=== PATIENT | female | born 1995 | race Caucasian/White ===

== ENCOUNTER 2022-09-23 01:59 | Emergency (ER) | payer MEDICAID, SELFPAY ==
[2022-09-23 02:19] VITALS: BP 164/92; PULSE 97; O2SAT 98; BMI 41.5
[2022-09-23 02:30] VITALS: BP 111/67; PULSE 79; RESP 16; TEMP 37.1; O2SAT 95
--- OUTSIDE RECORDS SUMMARY | 2022-09-23 03:39 | XMS_ITS | Continuity of Care Document ---
:1995 Author Organization [facility] pt Address [address] [place] [address]- Care Team Providers Name Role Phone Not on Staff, PCP Primary Care Physician Unavailable [place] [facility] [place] 10[place]19 [facility] [address] [address]- [facility] Encounter Diagnosis Asthma exacerbation (Discharge Diagnosis) - 10/13/19 Sore throat (Discharge Diagnosis) - 10/13/19 Attending Physician: Not on Staff, Attending MD Referring Physician: Not on Staff, Referring MD Allergies, Adverse Reactions, Alerts Substance Reaction Severity Status Other Environmental Allergy Acti ve Medications albuterol 90 mcg/inh inhalation powder 2 puffs, Inhalation, Every 4 hours, PRN as needed, # 1 each, 0 Refills, Maintenance, 10/13/19 12:55:00 EST, Powder, [id number], 2 puffs Inhalation Every 4 hours,PRN:as needed Start Date: 10/13/19 Status: Orderedazithromycin 250 mg oral tablet See Instructions, 2 tablets on day 1 and then 1 tablet By Mouth Daily for 4 days, # 6 tablet, 0 Refills, Acute 10/23/19 12:56:00 EST, 10/13/19 12:55:00 EST, Tablet, [id number] Start Date: 10/13/19 Stop Date: 10/23/19 Status: OrderedCavilon Emollient topical cream 1 application, Topically, 2 times a day, PRN for dry skin, to affected area, apply first to entire hands, prior to applying triamcinolone, # 120 Gm, 0 Refills, Maintenance, 10/12/19 17:43:00 EST, Cream, [id number], 1 application Topically 2 ti... Start Date: 10/12/19 Status: Orderedtriamcinolone 0.1% topical cream 1 application, Topically, 2 times a day, for 14 days, apply a thin film to raised red areas with broken skin after applying thick cream, # 30 Gm, 0 Refills, Acute 10/26/19 17:43:00 EST, 10/12/19 17:43:00 EST, Cream, [id number], 1 application T... Start Date: 10/12/19 Stop Date: 10/26/19 Status: Ordered Problem List Diagnosis Diagnosis Type Effective Dates Health Clinical Infor [facility] Status Service Asthma exacerbation Discharge 10/13/19 Diagnosis Sore throat Discharge 10/13/19 Diagnosis Vital Signs Most recent to oldest [Reference Range]: 1 Oxygen Saturation [94-100 %] 100 % (10/13/19 12:32 PM) Pulse Rate [55-90 bpm] 72 bpm (10/13/19 12:32 PM) Blood Pressure [90-138/55-84 mm Hg] 135/78 mm Hg (10/13/19 12:32 PM) Respiratory Rate [16-30 br/min] 18 br/min (10/13/19 12:32 PM) Temperature [96.8-100.4 DegF] 97.8 DegF (10/13/19 12:32 PM) Mode of Delivery (Oxygen) Room air (10/13/19 12:32 PM) Blood pressure sites Arm, right (10/13/19 12:32 PM) Temperature Route Oral (10/13/19 12:32 PM)
--- OUTSIDE RECORDS SUMMARY | 2022-09-23 03:39 | XMS_ITS | Continuity of Care Document ---
:1995 Author Organization [facility] Address [address] [place] [address]- Care Team Providers Name Role Phone Not on Staff, PCP Primary Care Physician Unavailable Encounter [facility] [place] Date(s): 07/01/22 - 07/02/[address] [address]- Discharge Disposition: A-D/C Walkout Attending Physician: Not on Staff, Attending MD Admitting Physician: Not on Staff, Admitting MD Referring Physician: Not on Staff, Referring MD Allergies, Adverse Reactions, Alerts Substance Reaction Severity Status clotrimazole topical Active Other Environmental Allergy Acti ve Medications albuterol 90 mcg/inh inhalation powder 2 puffs, Inhalation, Every 4 hours, PRN as needed, # 1 each, 0 Refills, Maintenance, 10/13/19 12:55:00 EST, Powder, [id number], 2 puffs Inhalation Every 4 hours,PRN:as needed Start Date: 10/13/19 Status: OrderedCavilon Emollient topical cream 1 application, Topically, 2 times a day, PRN for dry skin, to affected area, apply first to entire hands, prior to applying triamcinolone, # 120 Gm, 0 Refills, Maintenance, 10/12/19 17:43:00 EST, Cream, [id number], 1 application Topically 2 ti... Start Date: 10/12/19 Status: OrderedcloNIDine 0.1 mg oral tablet Refills 0, Maintenance, 08/19/20 14:34:00 EDT Start Date: 08/19/20 Status: OrderedOmeprazole By Mouth, Daily, 0 Refills, Maintenance, 08/19/20 14:33:00 EDT Start Date: 08/19/20 Status: OrderedZiprasidone 0 Refills, Maintenance, 08/19/20 14:31:00 EDT Start Date: 08/19/20 Status: Ordered Problem List Condition Effective Dates Status Health Status Informant Severe obesity(Confirmed) Active Vital Signs Most recent to oldest 1 2 3 [Reference Range]: Height 157 cm 157 cm 157 cm (07/02/22 7:09 PM) (07/02/22 3:53 PM) (07/02/22 3:0 8 PM) Weight 102 kg 102 kg 102 kg (07/02/22 7:09 PM) (07/02/22 3:53 PM) (07/02/22 3:0 8 PM) Oxygen Saturation [94-100 %] 98 % 100 % 100 % (07/02/22 7:09 PM) (07/02/22 3:53 PM) (07/02/22 3:0 8 PM) Pulse Rate [55-90 bpm] 93 bpm 81 bpm 82 bpm *H* (07/02/22 3:53 PM) (07/02/22 3:08 PM) (07/02/22 7:09 PM) Body Mass Index [18.5-24.99] 41.38 41.38 41. 38 *>HHI* *>HHI* *>HHI* (07/02/22 7:09 PM) (07/02/22 3:53 PM) (07/02/22 3:0 8 PM) Blood Pressure [90-138/55-84 154/95 mm Hg 122/96 mm Hg 148 /89 mm Hg mm Hg] *H* (07/02/22 3:53 PM) *H* (07/02/22 7:09 PM) (07/02/22 3:08 PM) Respiratory Rate [16-30 17 br/min 16 br/min 16 br/mi n br/min] (07/02/22 7:09 PM) (07/02/22 3:53 PM) (07/02/22 3:0 8 PM) Temperature [96.8-100.4 DegF] 98.2 DegF 98.1 DegF 97 .5 DegF (07/02/22 3:53 PM) (07/02/22 3:08 PM) (07/02/22 10: 52 AM) Mode of Delivery (Oxygen) Room air Room air Room a ir (07/02/22 7:09 PM) (07/02/22 3:53 PM) (07/02/22 3:0 8 PM) Blood pressure sites Arm, left Arm, right Arm, left (07/02/22 7:09 PM) (07/02/22 3:53 PM) (07/02/22 10: 52 AM) Temperature Route Oral Oral Oral (07/02/22 3:53 PM) (07/02/22 3:08 PM) (07/02/22 10: 52 AM) Weight Obtained Via Standing scale (07/01/22 12:51 PM) Care Team PersonnelName: Not on Staff, PCP
--- OUTSIDE RECORDS SUMMARY | 2022-09-23 03:39 | XMS_ITS | Continuity of Care Document ---
:1995 Author Organization [facility] pton Address [address] [place] [address]- Care Team Providers Name Role Phone Not on Staff, PCP Primary Care Physician Unavailable En[place] [facility] [place] Date(s): 10/12/19 - 10/19/19 [facility] [address] [address]- [facility] Attending Physician: Christa Cantor MD Referring Physician: Not on Staff, Referring [...] 10/26/19 17:43:00 EST, 10/12/19 17:43:00 EST, Cream, [id number], 1 application T... Start Date: 10/12/19 Stop Date: 10/26/19 Status: Ordered Vital Signs Most recent to oldest [Reference Range]: 1 Oxygen Saturation [94-100 %] 98 % (10/12/19 5:18 PM) Pulse Rate [55-90 bpm] 63 bpm (10/12/19 5:18 PM) Blood Pressure [90-138/55-84 mm Hg] 108/54 mm Hg (10/12/19 5:18 PM) Respiratory Rate [16-30 br/min] 16 br/min (10/12/19 5:18 PM) Temperature [96.8-100.4 DegF] 97.9 DegF (10/12/19 5:18 PM) Mode of Delivery (Oxygen) Room air (10/12/19 5:18 PM) Blood pressure sites Arm, left (10/12/19 5:18 PM) Temperature Route Oral (10/12/19 5:18 PM)
--- OUTSIDE RECORDS SUMMARY | 2022-09-23 03:39 | XMS_ITS | Continuity of Care Document ---
:[address] [facility] pt Address [address] [place] [address]- Care Team Providers Name Role Phone Not on Staff, PCP Primary Care Physician Unavailable [place] [facility] [place] 08/20[place]20 [place] 08/27/20 [facility] [address] [address]- Encounter Diagnosis Minor head trauma (Discharge Diagnosis) - 08/20/20 Attending Physician: Kelvin Del Toro Referring Physician: Not on Staff, Referring MD [...] Topically 2 ti... Start Date: 10/12/19 Status: Orderedciclopirox 0.77% topical cream 1 application, Topically, 2 times a day, for 7 days, # 90 Gm, 0 Refills, Acute 08/29/20 15:12:00 EST, 08/22/20 15:12:00 EST, Cream, [id number], 1 application Topically 2 times a day,x7 days Start Date: 08/22/20 Stop Date: 08/29/20 Status: OrderedcloNIDine 0.1 mg oral tablet Refills 0, Maintenance, 08/19/20 14:34:00 EDT Start Date: 08/19/20 Status: OrderedOmeprazole By Mouth, Daily, 0 Refills, Maintenance, 08/19/20 14:33:00 EDT Start Date: 08/19/20 Status: Orderedterbinafine 1% topical cream 1 application, Topically, 2 times a day, for 14 days, # 30 Gm, 0 Refills, Acute 09/02/20 16:11:00 EST, 08/19/20 16:11:00 EDT, Cream, [id number], 1 application Topically 2 times a day,x14 days Start Date: 08/19/20 Stop Date: 09/02/20 Status: OrderedZiprasidone 0 Refills, Maintenance, 08/19/20 14:31:00 EDT Start Date: 08/19/20 Status: Ordered Problem List Diagnosis Diagnosis Type Effective Dates Health Status Clinical In formant Service Minor head Discharge 08/20/20 trauma Diagnosis Vital Signs Most recent to oldest [Reference Range]: 1 Oxygen Saturation [94-100 %] 98 % (08/20/20 1:26 PM) Pulse Rate [55-90 bpm] 81 bpm (08/20/20 1:26 PM) Blood Pressure [90-138/55-84 mm Hg] 143/80 mm Hg *H* (08/20/20 1:26 PM) Respiratory Rate [16-30 br/min] 16 br/min (08/20/20 1:26 PM) Temperature [96.8-100.4 DegF] 98.2 DegF (08/20/20 1: PM) Mode of Delivery (Oxygen) Room air (08/20/20 1:26 PM) Blood pressure sites Arm, left (08/20/20 1:26 PM) Temperature Route Temporal (08/20/20 1: PM)
--- OUTSIDE RECORDS SUMMARY | 2022-09-23 03:39 | XMS_ITS | Continuity of Care Document ---
:[address] [facility] pton Address [address] [place] [address]- Care Team Providers Name Role Phone Not on Staff, PCP Primary Care Physician Unavailable Encounter [facility] Date(s): 10/13/19 - 10/23/19 [facility] [address] [address]- [facility] Attending Physician: Robert Andre Admitting Physician: Admtr, Robert Referring Physician: Admtr, Ar8 Allergies, Adverse Reactions, Alerts Substance Reaction Severity [...]
--- OUTSIDE RECORDS SUMMARY | 2022-09-23 03:40 | XMS_ITS | Continuity of Care Document ---
:1995 Author Organization [facility] Address [address] [place] [address]- Care Team Providers Name Role Phone Not on Staff, PCP Primary Care Physician Unavailable [place] [facility] [place]): [place] [facility] [address] [address]- Encounter Diagnosis Tinea corporis (Discharge Diagnosis) - 08/19/20 Attending Physician: Carri Caballero NP Referring Physician: Not on Staff, Referring MD [...] 09/02/20 16:11:00 EST, 08/19/20 16:11:00 EDT, Cream, [id number], 1 application Topically 2 times a day,x14 days Start Date: 08/19/20 Stop Date: 09/02/20 Status: OrderedZiprasidone 0 Refills, Maintenance, 08/19/20 14:31:00 EDT Start Date: 08/19/20 Status: Ordered Problem List Diagnosis Diagnosis Type Effective Dates Health Status Clinical In formant Service Tinea corporis Discharge 08/19/20 Diagnosis Vital Signs Most recent to oldest [Reference Range]: 1 Oxygen Saturation [94-100 %] 97 % (08/19/20 2:29 PM) Pulse Rate [55-90 bpm] 78 bpm (08/19/20 2:29 PM) Blood Pressure [90-138/55-84 mm Hg] 122/67 mm Hg (08/19/20 2:29 PM) Respiratory Rate [16-30 br/min] 20 br/min (08/19/20 2:29 PM) Blood pressure sites Arm, right (08/19/20 2:29 PM)
--- NOTE | 2022-09-23 03:41 | ED.EYEPROB ---
HPI - Eye Problem General Chief complaint: Eye Problems Stated complaint: eye irriatation with eye cloudiness Time Seen by Provider: 09/23/22 03:21 Source: patient Mode of arrival: EMS Limitations: no limitations History of Present Illness HPI Narrative: 27-year-old female who presents emergency department for evaluation of sensations in both of her eyes that began at 14:00 hours yesterday. Patient states that ?I felt like my eyes were getting cloudy but there was no change in my vision and ?.. She states she felt as if there were ?cells dividing on the surface of my eyes ?. She states that the surface of her eyes feel dry. She states that she does wear glasses and she is having no difficulty seeing. She denies pain in her eyes. She denied being ill in any other way, she denied fever, chills, rhinorrhea, sore throat or cough. She has not had any eye injury. Related Data Allergies Allergy/AdvReac Type Severity Reaction Status Date / Time clotrimazole Allergy Severe Rash Verified 09/23/22 02:18 Review of Systems Review of Systems: Yes all other systems are reviewed and are negative [facility] Past Medical History [facility] Narrative: Past medical history: Pre diabetes, reactive airways disease, GERD, possible seizure disorder, PCOS. Social history: She denies tobacco use. She states she rarely drinks alcohol. She states that she occasionally smokes marijuana but has not smoked any marijuana recently. Social History Social History Advance Directives: No Advance Directives Information Provided: No Physical Exam Vital Signs: Vital Signs: Last Vital Signs Temp 98.7 F 09/23/22 02:30 Pulse 79 09/23/22 02:30 Resp 16 09/23/22 02:30 BP 111/67 09/23/22 02:30 Pulse Ox 95 09/23/22 02:30 O2 Del Method 09/23/22 02:30 BMI result Body Mass Index 41.5 Const: Other: Awake, alert, female patient, she does appear to be anxious, she is cooperative and does not appear to be in distress HEENT: Other: Head is normal cephalic and atraumatic, external ears appear to be normal, mouth revealed moist membranes with no erythema or exudates, nares revealed no nasal discharge. Eyes: Other: The upper and lower lids appear to be normal, there is no periorbital swelling or erythema, patient's pupils are 6 mm and reactive to light, extraocular muscles are intact. Fluorescein dye exam with magnified Wood's lamp exam revealed no corneal abrasions Neck: Other: Neck is supple with no adenopathy Course Course Course Narrative: 27-year-old female who presents emergency department for evaluation bilateral eye complain of feeling as if her eyes were getting cloudy but there was no change in vision and feeling as if there are cells growing on her eyes. The patient's eye exam was normal. Fluorescein dye and magnified Wood's lamp exam revealed no corneal abrasions. Patient's visual acuity with glasses was 20/25 bilaterally. Without glasses her visual acuity was 20/50 bilaterally. At this time I do not have a clear etiology for the patient's eye sensations. Possible that her cornea are dry secondary to being indoors in he did areas that have no humidity. I did discuss this with the patient. She was advised to buy normal saline/natural tear eyedrops and apply 2 drops to each eye every 2 hours for the next 1-2 days see if this improves her symptoms. 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 Medications Administered Discontinued Medications Generic Name Dose Route Start Last Admin Trade Name Freq PRN Reason Stop Dose Admin Fluorescein Sodium 1 strip 09/23/22 03:21 09/23/22 03:56 Fluorescein Sodium Strip EYE-BOTH 09/23/22 03:22 1 strip ONCE ONE Administration Discharge Plan Discharge Clinical Impression: Irritation of both eyes Patient Disposition: Home, Self-Care Additional Instructions: Your eye examination today was normal. Your visual acuity in both eyes with glasses was 20/25 which is very good. The fluorescein dye examination with the Wood's lamp did not reveal any abnormalities of your cornea or abrasions to your cornea. Sometimes during the winter months, when the heat is on an our homes, the air becomes very dry with no moisture in the air and this causes your eyes to become dry and irritated. You can purchase saline eye drops/natural tears at your local pharmacy. Use 1 or 2 drops in each eye every 1-2 hours for the next several days to see if this improves your symptoms. Follow-up with your toll bridge operator for re-evaluation within 1 week. Please return to the emergency department if your symptoms get worse or if you develop any symptoms that are concerning to you.
[2022-09-23] MEDS: Fluorescein Sodium STRIP 1 STRIP EYE-BOTH (03:56)
--- NOTE | 2022-09-23 06:22 | PC.NURSE ---
Pt. quietly resting in bed. MD examined pt. eyes, visual acuity test given. Pt results at 25/20 with glasses. Cornea appeared intact. MD explained results to pt. Pt. told this RN that she believes she has a virus that has formed a clear coat over her eye and that when the MD viewed the cornea, it was a false cornea placed by the virus . Pt requested a 2nd opinion from an emergency opthamologist. Pt was provided with names of opthamologists in [place] where she resides. Pt. then dc'd where she was going to wait for a ride.
== END 2022-09-23 06:27 | disposition home or self-care (01) ==
PROVIDERS: Emergency Provider Emergency Medicine Emergency Medical Services
DX: H57.13 Ocular pain, bilateral (principal)
CPT/HCPCS: 99283; 99284

== ENCOUNTER 2023-02-16 14:24 | Inpatient (IN) | payer MEDICAID, OTHER, SELFPAY ==
[2023-02-16 14:37] VITALS: BP 149/73; BP 158/81; PULSE 79; PULSE 91; RESP 16; TEMP 36.9; O2SAT 97; O2SAT 98; BMI 43.4
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
[2023-02-16 14:47] VITALS: BP 155/92; PULSE 88; RESP 18; TEMP 36.6; O2SAT 98
[2023-02-16 15:25] LABS: MANUAL DIFF FLAG NO
[2023-02-16 15:26] LABS: Basophils Percent Auto 0.3 % (0-2); Eosinophils Percent Auto 0.1 % (0-4); Hematocrit 39.1 % (37.0-47.0); Hemoglobin 13.1 g/dl (12.0-16.0); Imm Gran Abs Auto 0.04 X10*3/uL (0.00-0.03); Imm Gran Pct Auto 0.4 % (0.0-0.4); Lymphocytes Absolute Auto 1.7 X10*3/uL (1.2-4.9); Lymphocytes Percent Auto 15.5 % (20-40); Mean Corpuscular HGB Conc 33.5 g/dl (31.0-35.0); Mean Corpuscular Hemoglobin 28.1 pg (27.0-33.0); Mean Corpuscular Volume 83.7 fL (80.0-98.0); Mean Platelet Volume 10.3 fL (9.4-12.3); Monocytes Absolute Auto 0.8 X10*3/uL (0.1-1.2); Monocytes Percent Auto 7.8 % (2-11); Neutrophils Absolute Auto 8.2 x10*3/uL (2.0-8.3); Neutrophils Percent Auto 75.9 % (45-73); Platelet Count 336 X10*3/uL (160-400); Red Blood Count 4.67 X10*6/uL (4.20-5.50); Red Cell Distribution Width 13.2 % (11.0-16.0); White Blood Count 10.8 X10*3/uL (4.8-10.8)
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
[2023-02-16 15:51] LABS: Alanine Aminotransferase 92 U/L (0-31); Albumin Level 4.4 g/dL (3.5-5.0); Alkaline Phosphatase 36 U/L (39-117); Anion Gap 17 (12-20); Aspartate Amino Transferase 55 U/L (5-31); Bilirubin Total 0.9 mg/dL (0.0-1.0); Blood Urea Nitrogen 7 mg/dL (9-16); Calcium 9.1 mg/dL (8.4-10.2); Carbon Dioxide 22 mmol/L (22-29); Chloride 102 mmol/L (96-108); Creatinine Clr Calc Pharmacy 120.9; Estimated Glomerular Filt Rate > 60; Glucose Random 118 mg/dL (60-115); HCG Quantitative < 2 mIU/mL; Magnesium 2.1 mg/dL (1.6-2.6); Potassium 3.8 mmol/L (3.3-5.1); Sodium 137 mmol/L (135-145); Total Protein 7.6 g/dL (6.5-8.0)
[2023-02-16 16:38] LABS: Appearance Urine Hazy; Color Urine RED; Glucose Urine UA Negative (Negative); Leukocyte Esterase Urine Moderate (2+) (Negative); Nitrite Urine Negative (Negative); UMIC TRIGGER UACC YES; Urine Blood Large (3+) (Negative); Urine Ketones >=80 mg/dL (Negative); Urine Protein 30 (1+) mg/dL (Neg-Trace)
[2023-02-16 16:41] LABS: Bacteria Urine None Seen (None Seen); Hyaline Casts Urine 0-2 /LPF (0-2); RBC Urine >20 /HPF (0-2); UACC Culture Trigger YES; WBC Urine 21-50 /HPF (0-5)
[2023-02-16 16:49] LABS: Amphetamine Screen Urine Not Detected (Not Detect); Barbiturates, Urine Not Detected (Not Detect); Benzodiazepines Screen Urine Not Detected (Not Detect); Cannabinoid Screen Urine Not Detected (Not Detect); Cocaine Screen Urine Not Detected (Not Detect); Fentanyl, urine Not Detected (Not Detect); Opiate Screen Urine Not Detected (Not Detect); Phencyclidine Screen Urine Not Detected (Not Detect)
[2023-02-16 17:40] LABS: Ethanol < 10 mg/dL
[2023-02-16 17:43] LABS: COVID-19 Test Negative (Negative); IDNOW Serial# BCCEAD1C
[2023-02-16 21:38] VITALS: BP 136/68; PULSE 80; RESP 17; TEMP 36.6; O2SAT 97
[2023-02-16] MEDS: Ziprasidone 60 MG CAPSULE PO (21:56)
[2023-02-16] MEDS: traZODone HCL 50 MG TABLET PO (22:00)
[2023-02-16] MEDS: metFORMIN HCl 1,000 MG TABLET 1000 MG PO (22:00)
--- NOTE | 2023-02-17 03:38 | PC.NURSE ---
Patient is currently in bed appears sleeping, no distress observed/reported, behavior disorganized, delayed responses, unable to self care, help provided for shower, patient is on her monthly period, medication compliant, disposition per care team is section 12 inpatient bed search, VSS, will continue to monitor.
--- NOTE | 2023-02-17 06:02 | PC.NURSE ---
Patient slept through the night without issues and concerns. Will continue to monitor.
[2023-02-17] MEDS: metFORMIN HCl 1,000 MG TABLET 1000 MG PO ×2 (10:03→21:00)
[2023-02-17] MEDS: lisinopriL 2.5 MG TABLET PO (10:03)
[2023-02-17] MEDS: Ziprasidone 40 MG CAPSULE PO (10:03)
[2023-02-17 10:40] VITALS: BP 137/88; PULSE 112; RESP 18; TEMP 36.2
[2023-02-17 16:05] VITALS: BP 109/89; PULSE 100; RESP 18; TEMP 36.3; O2SAT 97
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
[2023-02-17] MEDS: Ziprasidone 60 MG CAPSULE PO (18:29)
--- NOTE | 2023-02-18 | ECG_ITS ---
Test Reason : check qt interval Blood Pressure : / mmHG Vent. Rate : 066 BPM Atrial Rate : 066 BPM P-R Int : 136 ms QRS Dur : 076 ms QT Int : 414 ms P-R-T Axes : 026 031 030 degrees QTc Int : 434 ms Normal sinus rhythm Nonspecific ST and T wave abnormality Abnormal ECG No previous ECGs available Referred By: Abdulaziz Mcbride Electronically Signed By:JAX SOLIS MD
[2023-02-18] MEDS: traZODone HCL 50 MG TABLET PO (01:59)
[2023-02-18 02:04] VITALS: BP 147/78; PULSE 90; RESP 17; TEMP 36.4; O2SAT 96
--- NOTE | 2023-02-18 04:18 | PC.NURSE ---
Pt sleeping at the bedside. Breaths are even, regular, and unlabored with equal chest rises. No apparent distress noted. Will continue to monitor.
--- NOTE | 2023-02-18 09:49 | PC.NURSE ---
patient continues to sleep. respirations are equal and unlabored. video monitoring in place. will CTM
[2023-02-18 10:15] VITALS: BP 139/87; PULSE 92; RESP 12; TEMP 36.6; O2SAT 96
[2023-02-18] MEDS: lisinopriL 2.5 MG TABLET PO (10:18)
[2023-02-18] MEDS: metFORMIN HCl 1,000 MG TABLET 1000 MG PO ×2 (10:19→21:27)
[2023-02-18 18:00] VITALS: BP 142/85; PULSE 87; RESP 16; TEMP 36.3; O2SAT 97
[2023-02-18] MEDS: Ziprasidone 60 MG CAPSULE PO (18:06)
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
[2023-02-18 21:30] VITALS: BP 143/79; PULSE 100; TEMP 36.6; O2SAT 96
--- NOTE | 2023-02-19 01:03 | PC.NURSE ---
menses-currently has menses and is reflective in UA. denies any discomfort. culture contaminated. reports being off of BCP ''x5 days''
[2023-02-19] MEDS: traZODone HCL 50 MG TABLET PO (02:59)
[2023-02-19] MEDS: Magnesium Hydrox/Alum Hydrox 30 ML ORAL.SUSP PO (06:58)
[2023-02-19 08:00] VITALS: BP 137/80; PULSE 89; RESP 18; TEMP 36.6; O2SAT 98
[2023-02-19 08:03] LABS: Alanine Aminotransferase 83 U/L (0-31); Albumin Level 4.1 g/dL (3.5-5.0); Alkaline Phosphatase 56 U/L (39-117); Anion Gap 18 (12-20); Aspartate Amino Transferase 44 U/L (5-31); Bilirubin Total 0.3 mg/dL (0.0-1.0); Blood Urea Nitrogen 12 mg/dL (9-16); Calcium 10.2 mg/dL (8.4-10.2); Carbon Dioxide 20 mmol/L (22-29); Chloride 104 mmol/L (96-108); Cholesterol 175 mg/dL; Creatinine Clr Calc Pharmacy 110.8; Estimated Glomerular Filt Rate > 60; Glucose Fasting 157 mg/dL (60-99); HDL Cholesterol 33 mg/dL; LDL Cholesterol Calculated 111 mg/dl; Sodium 138 mmol/L (135-145); Total Protein 6.9 g/dL (6.5-8.0); Triglycerides 157 mg/dL
[2023-02-19 08:19] LABS: Estimated Average Glucose 126 mg/dL
[2023-02-19 08:30] LABS: Folate 10.2 ng/mL (> or = 4.0); Free T4 (Free Thyroxine) 1.13 ng/dL (0.71-1.85); Thyroid Stimulating Hormone 2.25 uIU/mL (0.32-4.0); Vitamin B12 354 pg/mL (200-900)
[2023-02-19] MEDS: lisinopriL 2.5 MG TABLET PO (09:31)
[2023-02-19] MEDS: metFORMIN HCl 1,000 MG TABLET 1000 MG PO ×2 (09:31→19:49)
[2023-02-19] MEDS: Ziprasidone 40 MG CAPSULE PO (09:32)
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
[2023-02-19 18:00] VITALS: BP 135/69; PULSE 100; RESP 16; TEMP 36.6; O2SAT 99
[2023-02-19] MEDS: Ziprasidone 60 MG CAPSULE PO (18:03)
[2023-02-20 06:00] VITALS: BP 142/82; PULSE 91; RESP 18; TEMP 36.6; O2SAT 96
[2023-02-20] MEDS: Ziprasidone 40 MG CAPSULE PO (08:59)
[2023-02-20] MEDS: lisinopriL 2.5 MG TABLET PO (08:59)
[2023-02-20] MEDS: metFORMIN HCl 1,000 MG TABLET 1000 MG PO ×2 (08:59→18:11)
[2023-02-20] MEDS: Acetaminophen 325 MG TABLET 650 MG PO (12:48)
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
[2023-02-20 16:31] VITALS: BP 151/70; PULSE 96; RESP 18; TEMP 36.4; O2SAT 97
[2023-02-20] MEDS: Ziprasidone 60 MG CAPSULE PO (18:11)
[2023-02-20 20:05] VITALS: BP 144/85; PULSE 90; RESP 16; TEMP 36.3; O2SAT 96
[2023-02-21] MEDS: traZODone HCL 50 MG TABLET PO (00:10)
[2023-02-21 07:00] VITALS: BMI 42.4
[2023-02-21 08:59] LABS: Glucose, Whole Blood 112 mg/dL (60-115)
[2023-02-21 09:45] VITALS: BP 134/90; PULSE 69; RESP 18; TEMP 36.3; O2SAT 97
[2023-02-21] MEDS: Ziprasidone 40 MG CAPSULE PO (09:56)
[2023-02-21] MEDS: metFORMIN HCl 1,000 MG TABLET 1000 MG PO ×2 (09:56→18:04)
[2023-02-21] MEDS: lisinopriL 2.5 MG TABLET PO (09:56)
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
[2023-02-21 15:40] VITALS: BP 144/91; PULSE 104; RESP 18; O2SAT 97
[2023-02-21] MEDS: cloNIDine HCL 0.1 MG TABLET PO (15:51)
[2023-02-21] MEDS: Ziprasidone 60 MG CAPSULE PO (18:04)
[2023-02-22 01:58] VITALS: BP 137/79; PULSE 100; RESP 18
[2023-02-22] MEDS: cloNIDine HCL 0.1 MG TABLET PO (02:05)
[2023-02-22 06:00] VITALS: BP 132/76; PULSE 90; RESP 18; TEMP 36.7; O2SAT 97
[2023-02-22 08:27] LABS: Glucose, Whole Blood 114 mg/dL (60-115)
[2023-02-22] MEDS: metFORMIN HCl 1,000 MG TABLET 1000 MG PO ×2 (09:47→18:14)
[2023-02-22] MEDS: lisinopriL 2.5 MG TABLET PO (09:48)
[2023-02-22] MEDS: Ziprasidone 40 MG CAPSULE PO (09:48)
--- NOTE | 2023-02-22 12:55 | HO.PSYCHPN ---
Subjective Subjective Date of Service: 02/22/23 Reason For Visit: Sonia Interim History: calm, cooperative. doing good today. feeling less achy. delusions remain. not interested in increasing regimen. [facility] declined her as she can only stay there a week and she does not plan to return to her apartment after. per staff, chatty, sleeping and eating well. wants a safe house. not feeling safe at her apartment. napped eves. wants a rest home. tangential. awaiting call back from [facility] or [facility]. poor sleep overnight. Mental Status Exam Mental Status Exam Narrative: obese, adequately dressed in street clothes, disheveled. cooperative. fair eye contact, no PMA/PMR. speech nml rate, amount, loudness, latency. thoughts linear and illogical. affect flexible, normo-intense, non-labile. mood doing good today. no SI/HI/AVH expressed. Diagnostics Vital Signs (24Hr): Vital Signs - 24 hr 02/21/23 15:40 02/22/23 01:58 02/22/23 06:00 Temperature 98.0 F Pulse Rate 104 H 100 90 Respiratory Rate 18 18 18 Blood Pressure 144/91 H 137/79 132/76 Pulse Oximetry 97 97 Oxygen Delivery Method Room Air Room Air BMI result Body Mass Index 42.4 Labs 02/16/23 15:19 02/19/23 06:47 Labs: Laboratory Results - last 48 hr 02/21/23 02/22/23 08:53 08:22 POC Glucose 112 114 Medications Medications Current Medications Acetaminophen (Acetaminophen 325 Mg Tablet) 650 mg PO Q6H PRN PRN Reason: Headache/Pain Mild Scale (1-3) Last Admin: 02/20/23 12:48 Dose: 650 mg Al Hydroxide/Mg Hydroxide (Magnesium Hydrox/Alum Hydrox 30 Ml Oral.Susp) 30 ml PO Q6H PRN PRN Reason: Heartburn/Nausea Last Admin: 02/19/23 06:58 Dose: 30 ml Clonidine HCl (Clonidine Hcl 0.1 Mg Tablet) 0.1 mg PO BID PRN; Protocol PRN Reason: panic attack Last Admin: 02/22/23 02:05 Dose: 0.1 mg Fluticasone/Vilanterol (Fluticasone/Vilanterol 100/25 Blst.W.Dev) 1 puff INHALE DAILY PRN PRN Reason: dyspnea Hydroxyzine HCl (Hydroxyzine Hcl 25 Mg Tablet) 25 mg PO Q6H PRN PRN Reason: Anxiety Lisinopril (Lisinopril 2.5 Mg Tablet) 2.5 mg PO DAILY [facility]; Protocol Last Admin: 02/22/23 09:48 Dose: 2.5 mg Magnesium Hydroxide (Milk Of Magnesia 30 Ml Oral.Susp) 30 ml PO DAILY PRN PRN Reason: Constipation Melatonin (Melatonin 3 Mg Tablet) 1 mg PO BEDTIME PRN PRN Reason: Insomnia Metformin HCl (Metformin Hcl 1,000 Mg Tablet) 1,000 mg PO BIDWM [facility] Last Admin: 02/22/23 09:47 Dose: 1,000 mg Trazodone HCl (Trazodone Hcl 50 Mg Tablet) 50 mg PO BEDTIME PRN PRN Reason: insomnia Last Admin: 02/21/23 00:10 Dose: 50 mg Ziprasidone (Ziprasidone 40 Mg Capsule) 40 mg PO DAILY [facility] Last Admin: 02/22/23 09:48 Dose: 40 mg Ziprasidone (Ziprasidone 60 Mg Capsule) 60 mg PO DAILY@1700 [facility] Last Admin: 02/21/23 18:04 Dose: 60 mg Allergies Allergies Allergy/AdvReac Type Severity Reaction Status Date / Time clotrimazole Allergy Severe Rash Verified 09/23/22 02:18 Assessment & Plan Assessment & Plan (1) Bipolar I disorder: Status: Acute Code(s): F31.9 - Bipolar disorder, unspecified Plan 5/2: continue outpt regimen. pt declines to entertain the possibility of addition of a proper mood stabilizer. 5/3: no change in presentation. described as uncooperative, agitated, irritable at points by staff. talking about discharging to peer respite. 5/4 patient difficult with which to engage; patient reports medications are helping however per staff there does not seem to be much reduction in symptoms. 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 5/5: pt declines med increase, willing only to decrease geodon. stable delusions. behaviorally in good control. no changes to mgmt currently. pt focused on getting into a safe house until the danger period is over. Reason for continued inpatient stay Substantial Risk for: inability to function and rapid decompensation Time Spent With Patient Time: Total time managing care of this patient today __25__ minutes.
[2023-02-22] MEDS: Ziprasidone 60 MG CAPSULE PO (18:13)
[2023-02-22 22:05] VITALS: BP 133/87; PULSE 97; TEMP 36.6; O2SAT 97
[2023-02-23 08:11] LABS: Glucose, Whole Blood 112 mg/dL (60-115)
[2023-02-23 09:17] VITALS: BP 100/62; PULSE 68; RESP 20; TEMP 36.3; O2SAT 96
[2023-02-23] MEDS: metFORMIN HCl 1,000 MG TABLET 1000 MG PO ×2 (09:19→18:28)
[2023-02-23] MEDS: lisinopriL 2.5 MG TABLET PO (09:19)
[2023-02-23] MEDS: Ziprasidone 40 MG CAPSULE PO (09:56)
[2023-02-23] MEDS: Fluticasone/Vilanterol 100/25 BLST.W.DEV 1 PUFF INHALE (13:02)
[2023-02-23] MEDS: Ziprasidone 60 MG CAPSULE PO (18:28)
[2023-02-23 20:15] VITALS: BP 129/79; PULSE 68; RESP 16; TEMP 36.5; O2SAT 96
--- NOTE | 2023-02-23 20:39 | P.PNPSI_ITS ---
Subjective Subjective Date of Service: 02/23/23 Reason For Visit: Sonia Medical Problems Affecting Mental Status: No Interim History: Endorses ongoing paranoia that person doing admission wrote word Jewy on property sheet and difficulty mosess could have ofelia jeans or jewelry. Was guarded during interview and vague. Stated not feeling safe going home to house mates but vague why. Suspicious ref staff e.g. questioning schedule and how this is written on board Medication Compliance: Yes Side effects from medications: No Attending Groups: Yes Review of Systems Acute medical concerns: No Review of Systems Review of Systems Yes all other systems are reviewed and are negative Mental Status Exam Mental Status Exam Narrative: obese, adequately dressed in street clothes, disheveled. cooperative. fair eye contact, no PMA/PMR. speech nml rate, amount, loudness, latency. thoughts linear and illogical. affect flexible, normo-intense, non-labile. mood ok. no SI/HI/AVH expressed. Diagnostics Vital Signs (24Hr): Vital Signs - 24 hr 02/22/23 22:05 02/23/23 09:17 Temperature 97.9 F 97.4 F Pulse Rate 97 68 Respiratory Rate 20 Blood Pressure 133/87 100/62 Pulse Oximetry 97 96 Oxygen Delivery Method Room Air Room Air BMI result Body Mass Index 42.4 Labs 02/16/23 15:19 02/19/23 06:47 Labs: Laboratory Results - last 48 hr 02/22/23 02/23/23 08:22 08:06 POC Glucose 114 112 Medications Medications Current Medications Acetaminophen (Acetaminophen 325 Mg Tablet) 650 mg PO Q6H PRN PRN Reason: Headache/Pain Mild Scale (1-3) Last Admin: 02/20/23 12:48 Dose: 650 mg Al Hydroxide/Mg Hydroxide (Magnesium Hydrox/Alum Hydrox 30 Ml Oral.Susp) 30 ml PO Q6H PRN PRN Reason: Heartburn/Nausea Last Admin: 02/19/23 06:58 Dose: 30 ml Albuterol Sulfate (Albuterol Sulfate 90 Mcg 8 Gm Inhaler) 2 puff INHALE RQ4H PRN PRN Reason: short of breath Clonidine HCl (Clonidine Hcl 0.1 Mg Tablet) 0.1 mg PO BID PRN; Protocol PRN Reason: panic attack Last Admin: 02/22/23 02:05 Dose: 0.1 mg Fluticasone/Vilanterol (Fluticasone/Vilanterol 100/25 Blst.W.Dev) 1 puff INHALE DAILY PRN PRN Reason: dyspnea Last Admin: 02/23/23 13:02 Dose: 1 puff Hydroxyzine HCl (Hydroxyzine Hcl 25 Mg Tablet) 25 mg PO Q6H PRN PRN Reason: Anxiety Lisinopril (Lisinopril 2.5 Mg Tablet) 2.5 mg PO DAILY [facility]; Protocol Last Admin: 02/23/23 09:19 Dose: 2.5 mg Magnesium Hydroxide (Milk Of Magnesia 30 Ml Oral.Susp) 30 ml PO DAILY PRN PRN Reason: Constipation Melatonin (Melatonin 3 Mg Tablet) 1 mg PO BEDTIME PRN PRN Reason: Insomnia Metformin HCl (Metformin Hcl 1,000 Mg Tablet) 1,000 mg PO BIDWM [facility] Last Admin: 02/23/23 18:28 Dose: 1,000 mg Trazodone HCl (Trazodone Hcl 50 Mg Tablet) 50 mg PO BEDTIME PRN PRN Reason: insomnia Last Admin: 02/21/23 00:10 Dose: 50 mg Ziprasidone (Ziprasidone 40 Mg Capsule) 40 mg PO DAILY [facility] Last Admin: 02/23/23 09:56 Dose: 40 mg Ziprasidone (Ziprasidone 60 Mg Capsule) 60 mg PO DAILY@1700 [facility] Last Admin: 02/23/23 18:28 Dose: 60 mg Allergies Allergies Allergy/AdvReac Type Severity Reaction Status Date / Time clotrimazole Allergy Severe Rash Verified 09/23/22 02:18 Assessment & Plan Assessment & Plan (1) Bipolar I disorder: Status: Acute Code(s): F31.9 - Bipolar disorder, unspecified Plan 5/2: continue outpt regimen. pt declines to entertain the possibility of addition of a proper mood stabilizer. 5/3: no change in presentation. described as uncooperative, agitated, irritable at points by staff. talking about discharging to peer respite. 5/4 patient difficult with which to engage; patient reports medications are helping however per staff there does not seem to be much reduction in symptoms. 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 5/5: pt declines med increase, willing only to decrease geodon. stable delusions. behaviorally in good control. no changes to mgmt currently. pt focused on getting into a safe house until the danger period is over. 02/23: no changes Reason for continued inpatient stay Substantial Risk for: harm to self and inability to function Time Spent With Patient Time: Total time managing care of this patient today ____ minutes.
[2023-02-24] MEDS: Magnesium Hydrox/Alum Hydrox 30 ML ORAL.SUSP PO (06:21)
[2023-02-24 08:16] LABS: Glucose, Whole Blood 151 mg/dL (60-115)
[2023-02-24 09:31] VITALS: BP 137/71; PULSE 90; RESP 18; TEMP 36.6; O2SAT 97
[2023-02-24] MEDS: lisinopriL 2.5 MG TABLET PO (09:44)
[2023-02-24] MEDS: Ziprasidone 40 MG CAPSULE PO (09:45)
[2023-02-24] MEDS: metFORMIN HCl 1,000 MG TABLET 1000 MG PO ×2 (09:45→19:01)
--- NOTE | 2023-02-24 13:54 | P.PNPSI_ITS ---
Subjective Subjective Date of Service: 02/24/23 Reason For Visit: Sonia Interim History: Mentioned memories from childhood that she was reluctant to talk about, then stated it was regarding PCP and wanted to talk with them about that. Appeared slightly paranoid in nature and related to patient portals of PCP office etc.. Continues to state not feeling safe going home to house mates but vague why. Concerned about finances. Suspicious ref staff. Medication Compliance: Yes Side effects from medications: No Attending Groups: Yes Review of Systems Acute medical concerns: No Review of Systems Review of Systems Yes all other systems are reviewed and are negative Mental Status Exam Mental Status Exam Narrative: obese, adequately dressed in street clothes, disheveled. cooperative. fair eye contact, no PMA/PMR. speech nml rate, amount, loudness, latency. thoughts vague. affect flexible, normo-intense, non-labile. mood ok. guarded. no SI/HI/AVH expressed. Diagnostics Vital Signs (24Hr): Vital Signs - 24 hr 02/23/23 20:15 02/24/23 09:31 Temperature 97.7 F 97.8 F Pulse Rate 68 90 Respiratory Rate 16 18 Blood Pressure 129/79 137/71 Pulse Oximetry 96 97 Oxygen Delivery Method Room Air Room Air BMI result Body Mass Index 42.4 Labs 02/16/23 15:19 02/19/23 06:47 Labs: Laboratory Results - last 48 hr 02/23/23 02/24/23 08:06 08:11 POC Glucose 112 151 H Medications Medications Current Medications Acetaminophen (Acetaminophen 325 Mg Tablet) 650 mg PO Q6H PRN PRN Reason: Headache/Pain Mild Scale (1-3) Last Admin: 02/20/23 12:48 Dose: 650 mg Al Hydroxide/Mg Hydroxide (Magnesium Hydrox/Alum Hydrox 30 Ml Oral.Susp) 30 ml PO Q6H PRN PRN Reason: Heartburn/Nausea Last Admin: 02/24/23 06:21 Dose: 30 ml Albuterol Sulfate (Albuterol Sulfate 90 Mcg 8 Gm Inhaler) 2 puff INHALE RQ4H PRN PRN Reason: short of breath Clonidine HCl (Clonidine Hcl 0.1 Mg Tablet) 0.1 mg PO BID PRN; Protocol PRN Reason: panic attack Last Admin: 02/22/23 02:05 Dose: 0.1 mg Fluticasone/Vilanterol (Fluticasone/Vilanterol 100/25 Blst.W.Dev) 1 puff INHALE DAILY PRN PRN Reason: dyspnea Last Admin: 02/23/23 13:02 Dose: 1 puff Hydroxyzine HCl (Hydroxyzine Hcl 25 Mg Tablet) 25 mg PO Q6H PRN PRN Reason: Anxiety Lisinopril (Lisinopril 2.5 Mg Tablet) 2.5 mg PO DAILY [facility]; Protocol Last Admin: 02/24/23 09:44 Dose: 2.5 mg Magnesium Hydroxide (Milk Of Magnesia 30 Ml Oral.Susp) 30 ml PO DAILY PRN PRN Reason: Constipation Melatonin (Melatonin 3 Mg Tablet) 1 mg PO BEDTIME PRN PRN Reason: Insomnia Metformin HCl (Metformin Hcl 1,000 Mg Tablet) 1,000 mg PO BIDWM [facility] Last Admin: 02/24/23 09:45 Dose: 1,000 mg Trazodone HCl (Trazodone Hcl 50 Mg Tablet) 50 mg PO BEDTIME PRN PRN Reason: insomnia Last Admin: 02/21/23 00:10 Dose: 50 mg Ziprasidone (Ziprasidone 40 Mg Capsule) 40 mg PO DAILY [facility] Last Admin: 02/24/23 09:45 Dose: 40 mg Ziprasidone (Ziprasidone 60 Mg Capsule) 60 mg PO DAILY@1700 [facility] Last Admin: 02/23/23 18:28 Dose: 60 mg Allergies Allergies Allergy/AdvReac Type Severity Reaction Status Date / Time clotrimazole Allergy Severe Rash Verified 09/23/22 02:18 Assessment & Plan Assessment & Plan (1) Bipolar I disorder: Status: Acute Code(s): F31.9 - Bipolar disorder, unspecified Plan 5/2: continue outpt regimen. pt declines to entertain the possibility of miley tion of a proper mood stabilizer. 5/3: no change in presentation. described as uncooperative, agitated, irritable at points by staff. talking about discharging to peer respite. 5/4 patient difficult with which to engage; patient reports medications are helping however per staff there does not seem to be much reduction in symptoms. 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 5/5: pt declines med increase, willing only to decrease geodon. stable delusions. behaviorally in good control. no changes to mgmt currently. pt focused on getting into a safe house until the danger period is over. 02/24: no changes Reason for continued inpatient stay Substantial Risk for: inability to function Time Spent With Patient Time: Total time managing care of this patient today ____ minutes.
[2023-02-24] MEDS: Ziprasidone 60 MG CAPSULE PO (19:01)
[2023-02-24] MEDS: cloNIDine HCL 0.1 MG TABLET PO (21:07)
[2023-02-24 21:08] VITALS: BP 118/75; PULSE 95; RESP 18; TEMP 36.3; O2SAT 97
[2023-02-25] MEDS: traZODone HCL 50 MG TABLET PO (00:58)
[2023-02-25 08:50] LABS: Glucose, Whole Blood 128 mg/dL (60-115)
[2023-02-25 09:50] VITALS: BP 129/76; PULSE 90; RESP 20; TEMP 36.1; O2SAT 97
[2023-02-25] MEDS: lisinopriL 2.5 MG TABLET PO (10:04)
[2023-02-25] MEDS: Ziprasidone 40 MG CAPSULE PO (10:04)
[2023-02-25] MEDS: metFORMIN HCl 1,000 MG TABLET 1000 MG PO ×2 (10:04→18:07)
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
[2023-02-25] MEDS: Ziprasidone 60 MG CAPSULE PO (18:06)
[2023-02-25 22:15] VITALS: RESP 18
[2023-02-26 09:15] VITALS: BP 135/75; PULSE 93; RESP 18; TEMP 36.3; O2SAT 96
[2023-02-26] MEDS: Ziprasidone 40 MG CAPSULE PO (09:24)
[2023-02-26] MEDS: lisinopriL 2.5 MG TABLET PO (09:24)
[2023-02-26] MEDS: metFORMIN HCl 1,000 MG TABLET 1000 MG PO ×2 (09:24→18:03)
[2023-02-26 09:52] LABS: Glucose, Whole Blood 177 mg/dL (60-115)
[2023-02-26 11:11] LABS: Creatinine Clr Calc Pharmacy 120.7; Estimated Glomerular Filt Rate > 60
[2023-02-26 14:30] VITALS: BP 137/73; PULSE 93; RESP 20; O2SAT 97
[2023-02-26] MEDS: cloNIDine HCL 0.1 MG TABLET PO (14:31)
--- NOTE | 2023-02-26 15:26 | P.PNPSI_ITS ---
Subjective Subjective Date of Service: 02/26/23 Reason For Visit: Sonia Interim History: appears flat, poor eye contact. states she is sleepy today. otherwise denies any problems or changes. waiting for respite bed. passive, disengaged. per staff, poor sleep. meds making her groggy, she says. active, appropriate. attending groups. Mental Status Exam Mental Status Exam Narrative: obese, adequately dressed in street clothes, disheveled. cooperative. poor eye contact, no PMA/PMR. speech nml rate, decr amount, nml loudness, nml latency. thoughts linear and illogical. affect constricted, normo-intense, non-labile. mood good. no SI/HI/AVH. Diagnostics Vital Signs (24Hr): Vital Signs - 24 hr 02/25/23 22:15 02/26/23 09:15 Temperature 97.3 F Pulse Rate 93 Respiratory Rate 18 18 Blood Pressure 135/75 Pulse Oximetry 96 Oxygen Delivery Method Room Air BMI result Body Mass Index 42.4 Labs 02/16/23 15:19 02/26/23 08:32 Labs: Laboratory Results - last 48 hr 02/25/23 02/26/23 02/26/23 08:46 08:32 09:48 Creatinine 0.76 Estim Creat Clear Calc 120.7 Estimated GFR > 60 POC Glucose 128 H 177 H Medications Medications Current Medications Acetaminophen (Acetaminophen 325 Mg Tablet) 650 mg PO Q6H PRN PRN Reason: Headache/Pain Mild Scale (1-3) Last Admin: 02/20/23 12:48 Dose: 650 mg Al Hydroxide/Mg Hydroxide (Magnesium Hydrox/Alum Hydrox 30 Ml Oral.Susp) 30 ml PO Q6H PRN PRN Reason: Heartburn/Nausea Last Admin: 02/24/23 06:21 Dose: 30 ml Albuterol Sulfate (Albuterol Sulfate 90 Mcg 8 Gm Inhaler) 2 puff INHALE RQ4H PRN PRN Reason: short of breath Clonidine HCl (Clonidine Hcl 0.1 Mg Tablet) 0.1 mg PO BID PRN; Protocol PRN Reason: panic attack Last Admin: 02/26/23 14:31 Dose: 0.1 mg Fluticasone/Vilanterol (Fluticasone/Vilanterol 100/25 Blst.W.Dev) 1 puff INHALE DAILY PRN PRN Reason: dyspnea Last Admin: 02/23/23 13:02 Dose: 1 puff Hydroxyzine HCl (Hydroxyzine Hcl 25 Mg Tablet) 25 mg PO Q6H PRN PRN Reason: Anxiety Lisinopril (Lisinopril 2.5 Mg Tablet) 2.5 mg PO DAILY [facility]; Protocol Last Admin: 02/26/23 09:24 Dose: 2.5 mg Magnesium Hydroxide (Milk Of Magnesia 30 Ml Oral.Susp) 30 ml PO DAILY PRN PRN Reason: Constipation Melatonin (Melatonin 3 Mg Tablet) 1 mg PO BEDTIME PRN PRN Reason: Insomnia Metformin HCl (Metformin Hcl 1,000 Mg Tablet) 1,000 mg PO BIDWM [facility] Last Admin: 02/26/23 09:24 Dose: 1,000 mg Trazodone HCl (Trazodone Hcl 50 Mg Tablet) 50 mg PO BEDTIME PRN PRN Reason: insomnia Last Admin: 02/25/23 00:58 Dose: 50 mg Ziprasidone (Ziprasidone 40 Mg Capsule) 40 mg PO DAILY [facility] Last Admin: 02/26/23 09:24 Dose: 40 mg Ziprasidone (Ziprasidone 60 Mg Capsule) 60 mg PO DAILY@1700 [facility] Last Admin: 02/25/23 18:06 Dose: 60 mg Allergies Allergies Allergy/AdvReac Type Severity Reaction Status Date / Time clotrimazole Allergy Severe Rash Verified 09/23/22 02:18 Assessment & Plan Assessment & Plan (1) Bipolar I disorder: Status: Acute Code(s): F31.9 - Bipolar disorder, unspecified Plan 5/2: continue outpt regimen. pt declines to entertain the possibility of addition of a proper mood stabilizer. 5/3: no change in presentation. described as uncooperative, agitated, ir ritable at points by staff. talking about discharging to peer respite. 5/4 patient difficult with which to engage; patient reports medications are helping however per staff there does not seem to be much reduction in symptoms. 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 55: pt declines med increase, willing only to decrease geodon. stable delusions. behaviorally in good control. no changes to mgmt currently. pt focused on getting into a safe house until the danger period is over. 7: no changes 5/8: no change in mgmt. awaiting respite bed. 02/26: no change. Reason for continued inpatient stay Substantial Risk for: inability to function and rapid decompensation Time Spent With Patient Time: Total time managing care of this patient today ____ minutes.
[2023-02-26] MEDS: Ziprasidone 60 MG CAPSULE PO (18:03)
[2023-02-26 20:10] VITALS: BP 110/69; PULSE 85; RESP 16; TEMP 36.6; O2SAT 96
[2023-02-27] MEDS: traZODone HCL 50 MG TABLET PO (01:15)
[2023-02-27 09:27] VITALS: BP 129/60; PULSE 72; RESP 18; TEMP 36.6; O2SAT 95
[2023-02-27] MEDS: lisinopriL 2.5 MG TABLET PO (09:57)
[2023-02-27] MEDS: metFORMIN HCl 1,000 MG TABLET 1000 MG PO (09:57)
[2023-02-27] MEDS: Ziprasidone 40 MG CAPSULE PO (09:57)
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
== END 2023-02-27 16:00 | disposition home or self-care (01) | DRG 753 ==
LOC: HO.ED 02-17 10:46 → HO.PM5 02-18 16:04 → HO.PADLT16 02-18 16:19
PROVIDERS: Internal Medicine; Physician Assistant Medical; Admitting Provider Psychiatry & Neurology Psychiatry; Emergency Provider Emergency Medicine; Visit Provider Psychiatry & Neurology Psychiatry
DX: F31.10 Bipolar disorder, current episode manic without psychotic features, unspecified (principal); Z91.148 Patient's other noncompliance with medication regimen for other reason; Z20.822 Contact with and (suspected) exposure to COVID-19; Z79.3 Long term (current) use of hormonal contraceptives; Z88.8 Allergy status to other drugs, medicaments and biological substances; Z79.84 Long term (current) use of oral hypoglycemic drugs; Z79.899 Other long term (current) 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
CPT/HCPCS: 36415; 80053; 80061; 80307; 81001; 82077; 82565; 82607; 82746; 82947; 83036; 83735; 84439; 84443; 84702; 85025; 87086; 87635; 93005; 99285; S9485

== ENCOUNTER 2023-07-28 20:41 | Inpatient (IN) | payer MEDICAID, OTHER, SELFPAY ==
[2023-07-28 20:53] VITALS: BP 138/83; PULSE 79; RESP 17; TEMP 36.4; O2SAT 99; BMI 41.6
--- NOTE | 2023-07-28 21:00 | ED.PSYCH ---
HPI - Psych General Chief Complaint: Psychiatric Symptoms Stated Complaint: pt exp delusions, pt denies si/hi, per ems Time Seen by Provider: 07/28/23 20:59 Source: patient and EMS Mode of arrival: EMS Limitations: no limitations History of Present Illness HPI Narrative: Patient with history of bipolar disorder on Section 12 from [facility] to home delusional thought content with aggression and poor medication compliance, and quiet on arrival flat affect mood depressed denies any SI or HI no hallucination/ delusion Related Data Home Medications Medication Instructions Recorded Confirmed clonidine HCl 0.1 mg tablet 0.1 mg PO BID 07/28/23 07/28/23 lisinopril 2.5 mg tablet 2.5 mg PO DAILY 07/28/23 07/28/23 metformin 1,000 mg tablet 1,000 mg PO BID 07/28/23 07/28/23 naproxen 500 mg tablet 500 mg PO BID 07/28/23 07/28/23 propranolol 10 mg tablet 10 mg PO BID 07/28/23 07/28/23 trazodone 50 mg tablet 50 mg PO BEDTIME 07/28/23 07/28/23 ziprasidone HCl 40 mg capsule 40 mg PO DAILY 07/28/23 07/28/23 ziprasidone HCl 60 mg capsule 60 mg PO DAILY 07/28/23 07/28/23 Previous Rx's Medication Instructions Recorded albuterol sulfate 90 mcg/actuation 2 puff inhalation RQ4H PRN short 02/25/23 aerosol inhaler (Ventolin HFA) of breath 30 days #1 inhaler Allergies Allergy/AdvReac Type Severity Reaction Status Date / Time clotrimazole Allergy Severe Rash Verified 09/23/22 02:18 Review of Systems Review of Systems: Yes all other systems are reviewed and are negative [facility] Past Medical History Medical History Delusional disorder Social History Social History Household Members Other:: Live with 2 housemates Housing: Apartment Do you presently have visiting nurse or other home services: No Patient Tobacco Use Status: Never used Tobacco Advance Directives: No Advance Directives Information Provided: No service: No Sexual orientation: Lesbian/Ponce/Homosexual Physical Exam Vital Signs: Vital Signs: Last Vital Signs Temp 98.4 F 07/29/23 00:47 Pulse 76 07/29/23 00:47 Resp 17 07/29/23 00:47 BP 140/92 H 07/29/23 00:47 Pulse Ox 98 07/29/23 00:47 O2 Del Method Room Air 07/29/23 00:47 BMI result Body Mass Index 41.6 Appearance: Alert. Oriented X3. No acute distress. Eyes: PERRLA, No Nystagmus ENT: Pharynx normal. Oral Mucosa moist Neck: Normal inspection. Neck supple. CVS: Normal heart rate and rhythm. Pulses normal. Respiratory: No respiratory distress. Equal air entry bilateral, no wheezing/rales/rhonchi Abdomen: Soft and nontender. Bowel sounds are present, no mass palpable, no CVA tenderness Skin: Skin warm and dry. Normal skin color. Normal skin turgor. Extremities: No lower extremity edema. No calf tenderness psych: Delusion with multiple complaints no hallucinations no SI Neuro: Oriented X 3. No motor deficit. No sensory deficit.No cerebellar signs , cranial nerves II-XII intact Medical Decision Making Medical Decision Making [facility] Narrative: Patient with delusion disorder Section 12 plan for inpatient psych Differential Diagnosis Differential Diagnoses: The differential diagnosis associated with the presentation includes Delusion disorder/schizophrenia/psychosis/bipolar disorder Lab Data [facility] Lab Attestation statement: I reviewed the patient's lab results. 07/28/23 22:30 07/28/23 22:30 Labs: Lab Results 07/28/23 07/28/23 Range/Units 22:30 22:30 WBC 11.6 H (4.8-10.8) X10*3/uL RBC 4.97 (4.20-5.50) X10*6/uL Hgb 13.8 (12.0-16.0) g/dl Hct 41.5 (37.0-47.0) % MCV 83.5 (80.0-98.0) fL MCH 27.8 (27.0-33.0) pg MCHC 33.3 (31.0-35.0) g/dl RDW 14.6 (11.0-16.0) % Plt Count 441 H D (160-400) X10*3/uL MPV 11.1 (9.4-12.3) fL Immature Gran % (Auto) 0.3 (0.0-0.4) % Neut % (Auto) 64.5 (45-73) % Lymph % (Auto) 25.0 (20-40) % [place] % (Auto) 9.0 (2-11) % Eos % (Auto) 0.9 (0-4) % Baso % (Auto) 0.3 (0-2) % Lymph # (Auto) 2.9 (1.2-4.9) X10*3/uL [place] # (Auto) 1.1 (0.1-1.2) X10*3/uL Eos # (Auto) 0.1 (0.0-0.4) X10*3/uL Baso # (Auto) 0.0 (0.0-0.2) X10*3/uL Abs Immat Gran (auto) 0.04 H (0.00-0.03) X10*3/uL Absolute Neuts (auto) 7.5 (2.0-8.3) x10*3/uL Absolute Nucleated RBC 0.000 (0.0-0.012) X10*3/uL Nucleated RBC % (auto) 0.0 (0.0-0.2) /100WBC Sodium 141 (135-145) mmol/L Potassium 4.0 (3.3-5.1) mmol/L Chloride 104 (96-108) mmol/L Carbon Dioxide 22 (22-29) mmol/L Anion Gap 19 (12-20) BUN 15 (9-16) mg/dL Creatinine 0.71 (0.5-1.4) mg/dL Estim Creat Clear Calc 127.7 Estimated GFR > 60 Random Glucose 85 (60-115) mg/dL Calcium 10.2 (8.4-10.2) mg/dL Total Bilirubin 0.5 (0.0-1.0) mg/dL AST 58 H (5-31) U/L ALT 124 H (0-31) U/L Alkaline Phosphatase 48 (39-117) U/L Total Protein 8.5 H (6.5-8.0) g/dL Albumin 4.7 (3.5-5.0) g/dL Ethyl Alcohol Cancelled < 10 Discharge Plan Discharge Clinical Impression: Delusional disorder Patient Disposition: Still a Patient Prescriptions: No Action albuterol sulfate [Ventolin HFA] 90 mcg/actuation Hfa Aerosol Inhaler 2 puff inhalation RQ4H PRN (Reason: short of breath) 30 Days Qty: 1 0RF clonidine HCl 0.1 mg tablet 0.1 mg PO BID trazodone 50 mg tablet 50 mg PO BEDTIME propranolol 10 mg tablet 10 mg PO BID metformin 1,000 mg tablet 1,000 mg PO BID ziprasidone HCl 40 mg capsule 40 mg PO DAILY ziprasidone HCl 60 mg capsule 60 mg PO DAILY lisinopril 2.5 mg tablet 2.5 mg PO DAILY naproxen 500 mg tablet 500 mg PO BID
[2023-07-28 22:52] LABS: Alanine Aminotransferase 124 U/L (0-31); Albumin Level 4.7 g/dL (3.5-5.0); Alkaline Phosphatase 48 U/L (39-117); Anion Gap 19 (12-20); Aspartate Amino Transferase 58 U/L (5-31); Bilirubin Total 0.5 mg/dL (0.0-1.0); Blood Urea Nitrogen 15 mg/dL (9-16); Calcium 10.2 mg/dL (8.4-10.2); Carbon Dioxide 22 mmol/L (22-29); Chloride 104 mmol/L (96-108); Creatinine Clr Calc Pharmacy 127.7; Estimated Glomerular Filt Rate > 60; Ethanol < 10 mg/dL; Glucose Random 85 mg/dL (60-115); Sodium 141 mmol/L (135-145); Total Protein 8.5 g/dL (6.5-8.0)
[2023-07-29 00:47] VITALS: BP 140/92; PULSE 76; RESP 17; TEMP 36.9; O2SAT 98
--- NOTE | 2023-07-29 06:17 | PC.NURSE ---
Patient was up whole night, in and out of room numerously, no distress observed/reported, behavior non concerning, thought content paranoid delusional, response delayed, thought process incoherent and tangential, labs completed/resulted, med rec completed/pending provider's approval, per [facility] report patient is not compliant with her medication, disposition per [facility] from community is section 12 inpatient bed search, VSS, will continue to monitor.
--- NOTE | 2023-07-29 07:26 | PC.NURSE ---
patient appears to remain at rest at present, came out early and reported to t/w fearful of bank transactions she believes are being made without her awareness/involvement and also phone acting peculiarly.
--- NOTE | 2023-07-29 10:12 | PC.NURSE ---
[facility] staff in to complete mental status update.
--- NOTE | 2023-07-29 17:57 | PC.NURSE ---
patient very reluctant to take medications, encouraged for a few minutes, patient seemed to want to lengthily talk about other problems...patient shown medicine coming out of package...
[2023-07-29 21:32] VITALS: BP 149/102; PULSE 112; RESP 18; O2SAT 96
--- NOTE | 2023-07-29 21:40 | PC.NURSE ---
Patient offered bedtime medications, patient educated on what the medications are and what they are for. Patient looked at medications for a minute before she took the medications. No s/s of distress noted at this time, patient breathing evenly and without issues.
--- NOTE | 2023-07-29 23:45 | PC.NURSE ---
Patient approaching the nurses station wanting to fix things wanting the things being broadcast overhead to be turned off for the other patients. Patient assure that there was nothing being broadcast overhead but patient is still worried that she has done something wrong and that people don't like her. Patient assured that no one hates her and that there is nothing to worry about and was sent back to her room.
[2023-07-30 00:39] VITALS: BP 153/97; PULSE 85; RESP 17; TEMP 36.6; O2SAT 96
--- NOTE | 2023-07-30 03:22 | PC.NURSE ---
Addendum entered by Arash Christensen RN 07/30/23 03:46: Entered in error under incorrect user. This RN assumed care at initial time of this note as follows: Assumed care of pt. Pt awake and ambulating to nursing station, endorsing auditory hallucinations. Pt redirected to return to bed. No further issues. Continuing safety monitoring and plan of care. Original Note: Assumed care of pt. Pt awake and ambulating to nursing station, endorsing auditory hallucinations. Pt redirected to return to bed. No further issues. Continuing safety monitoring and plan of care.
--- NOTE | 2023-07-30 04:19 | PC.NURSE ---
Pt up multiple times to nurses station with vague complaints and concerns, primarily nonsensical. Redirectable back to room with no complications.
[2023-07-30 04:33] VITALS: BP 150/79; PULSE 78; RESP 17; TEMP 36.4; O2SAT 95
--- NOTE | 2023-07-30 06:10 | PC.NURSE ---
Pt lying on stretcher, no acute medical or behavioral concerns at this time. Eyes closed, respirations even and unlabored. Continuing safety monitoring and plan of care.
--- NOTE | 2023-07-30 07:21 | PC.NURSE ---
patient appears to remain asleep at this time, respirations are even and unlabored patient appears in no distress.
[2023-07-30 15:00] VITALS: BP 164/92; PULSE 95; RESP 19; TEMP 36.6; O2SAT 97
--- NOTE | 2023-07-30 18:39 | PHA.MEDREC ---
Pharmacy Consult ? Medication Reconciliation Pharmacy has reviewed the medication reconciliation completed by Marcos.
[2023-07-30 21:45] VITALS: BP 155/92; PULSE 90; RESP 18; TEMP 37.1; O2SAT 97
[2023-07-31 00:53] VITALS: BMI 38.9
--- NOTE | 2023-07-31 02:16 | PC.ADMIT ---
Sally Burgos is a 27yo female who uses they/them pronouns, admitted to the unit from ED, [facility] for the treatment of SI, unspecified schizophrenia spectrum and Delusional disorder. She reported struggling with some SI in the past few days, but unable to elaborate further. Insight, judgment and impulsivity impaired as making bomb threats, States that people are attempting to murder their current therapists. Pt presented with disorganized/delusional/paranoia thought such as earthquakes causing brain injuries and people are spreading lies about me. Pt is alert and oriented x3, calm and pleasant but appear to be responding to auditory hallucination, talking to self and asking some strange questions. Pt seem to be having thought blocking and poor concentration, not able to process questions well and difficult to understand. Meds compliant, difficulty falling asleep and observed to be talking to self at night. Denies SI/HI, safe on the unit.
[2023-07-31 08:54] VITALS: BP 139/82; PULSE 85; RESP 16; TEMP 36.7; O2SAT 96
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
[2023-07-31] MEDS: hydrOXYzine HCL 25 MG TABLET PO (17:01)
[2023-07-31] MEDS: Ziprasidone 60 MG CAPSULE PO (17:01)
[2023-07-31 21:00] VITALS: BP 120/60; PULSE 80; TEMP 36.4; O2SAT 97
[2023-08-01 07:00] VITALS: BMI 39.0
[2023-08-01 08:20] VITALS: BP 162/90; PULSE 116; RESP 18; TEMP 36.7; O2SAT 98
[2023-08-01] MEDS: NaPROXEN 500 MG TABLET PO ×2 (08:28→22:12)
[2023-08-01] MEDS: Propranolol HCL 10 MG TABLET PO ×2 (08:28→22:13)
[2023-08-01] MEDS: Ziprasidone 40 MG CAPSULE PO (08:29)
[2023-08-01] MEDS: metFORMIN HCl 1,000 MG TABLET 1000 MG PO ×2 (08:29→22:14)
[2023-08-01] MEDS: lisinopriL 2.5 MG TABLET PO (08:29)
--- NOTE | 2023-08-01 09:44 | P.PNPSI_ITS ---
Subjective Subjective Date of Service: 08/01/23 Reason For Visit: pt exp delusions, pt denies si/hi, per ems Subjective Notes: Conditional Voluntary Interim History: Reviewed in team and . Pt presents disorganized with thought blocking. Observed responding to internal stimuli, keeping to self. Pt stated, I'm struggling but whatever. There are too many threats in my life right now and it's making me confused. I'm worried about a lot of people. I'm struggling to explain . Patient reports she believes she has been wire tapped by the news . med compliant. Medication Compliance: Yes Side effects from medications: No Attending Groups: No Review of Systems Constitutional: Reports as per HPI Eyes: Reports as per HPI Reports as per HPI Cardiovascular: Reports as per HPI Respiratory: Reports as per HPI Gastrointestinal: Reports as per HPI Genitourinary: Reports as per HPI Musculoskeletal: Reports as per HPI Skin/Breast: Reports as per HPI Reports as per HPI Psychiatric: Reports as per HPI Endocrine: Reports as per HPI Hematologic/Lymphatic: Reports as per HPI Allergic/Immunologic: Reports as per HPI Mental Status Exam Mental Status Exam Narrative: Pt is alert and oriented; behavior is guarded; dressed in casual attire with unkempt hair; mood is described as ok ; eye contact appropriate; Speech is normal rate, volume and prosody and not pressured, delayed responses; thought process is disorganized; with thought blocking; denies SI/HI. Observed responding to internal stimuli, however denies AH/VH. Patients insight and judgment are poor. Diagnostics Vital Signs (24Hr): Vital Signs - 24 hr 07/31/23 21:00 08/01/23 08:20 Temperature 97.5 F 98.0 F Pulse Rate 80 116 H Respiratory Rate 18 Blood Pressure 120/60 162/90 H Pulse Oximetry 97 98 Oxygen Delivery Method Room Air Room Air BMI result Body Mass Index 38.9 Labs 07/28/23 22:30 07/28/23 22:30 Labs: Laboratory Results - last 48 hr 07/30/23 07/31/23 10:11 08:14 Estimat Average Glucose 117 Hemoglobin A1c % 5.7 Triglycerides 161 H Cholesterol 236 H LDL Cholesterol, Calc 154 H HDL Cholesterol 50 COVID-19 ([facility]) Negative COVID-19 Clin Com See Note Medications Medications Current Medications Acetaminophen (Acetaminophen 325 Mg Tablet) 650 mg PO Q6H PRN PRN Reason: Headache/Pain Mild Scale (1-3) Al Hydroxide/Mg Hydroxide (Magnesium Hydrox/Alum Hydrox 30 Ml Oral.Susp) 30 ml PO Q6H PRN PRN Reason: Heartburn/Nausea Albuterol Sulfate (Albuterol Sulfate 90 Mcg 8 Gm Inhaler) 2 puff INHALE RQ4H PRN PRN Reason: short of breath Clonidine HCl (Clonidine Hcl 0.1 Mg Tablet) 0.1 mg PO BID PRN; Protocol PRN Reason: Anxiety Last Admin: 07/30/23 15:18 Dose: 0.1 mg Hydroxyzine HCl (Hydroxyzine Hcl 25 Mg Tablet) 25 mg PO Q6H PRN PRN Reason: Anxiety Last Admin: 07/31/23 17:01 Dose: 25 mg Lisinopril (Lisinopril 2.5 Mg Tablet) 2.5 mg PO DAILY [facility]; Protocol Last Admin: 08/01/23 08:29 Dose: 2.5 mg Magnesium Hydroxide (Milk Of Magnesia 30 Ml Oral.Susp) 30 ml PO DAILY PRN PRN Reason: Constipation Metformin HCl (Metformin Hcl 1,000 Mg Tablet) 1,000 mg PO BID [facility] Last Admin: 08/01/23 08:29 Dose: 1,000 mg Naproxen (Naproxen 500 Mg Tablet) 500 mg PO BID [facility] Last Admin: 08/01/23 08:28 Dose: 500 mg Nicotine (Nicotine 21 Mg Patch.Td24) 21 mg TRANSDERMA DAILY PRN PRN Reason: smoking cessation Nicotine Polacrilex (Nicotine Polacrilex 2 Mg Gum) 4 mg BUCCAL Q2H PRN PRN Reason: Nicotine Cravings Olanzapine (Olanzapine 5 Mg Tablet) 5 mg PO TID PRN PRN Reason: agitation Propranolol HCl (Propranolol Hcl 10 Mg Tablet) 10 mg PO BID [facility]; Protocol Last Admin: 08/01/23 08:28 Dose: 10 mg Trazodone HCl (Trazodone Hcl 50 Mg Tablet) 50 mg PO BEDTIME MRX1 PRN PRN Reason: Insomnia Ziprasidone (Ziprasidone 40 Mg Capsule) 40 mg PO DAILY [facility] Last Admin: 08/01/23 08:29 Dose: 40 mg Ziprasidone (Ziprasidone 60 Mg Capsule) 60 mg PO DAILY@1700 [facility] Last Admin: 07/31/23 17:01 Dose: 60 mg Allergies Allergies Allergy/AdvReac Type Severity Reaction Status Date / Time clotrimazole Allergy Severe Rash Verified 09/23/22 02:18 Assessment & Plan Assessment & Plan (1) Schizoaffective disorder: Status: Acute Code(s): F25.9 - Schizoaffective disorder, unspecified Plan Patient is a 27 year old female (they/them) with hx of Schizoaffective d/o who [place] [facility] [place] paranoia, delusions throughout the day which resulted in them calling the police to report a bomb threat on their old apartment building secondary to medication non-compliance. Plan: CV 15 minute safety checks Continue home medications Obtain collateral Discuss starting on mood stabilizer 08/01: Pt presents disorganized with thought blocking. Observed responding to internal stimuli, keeping to self. Pt stated, I'm struggling but whatever. There are too many threats in my life right now and it's making me confused. I'm worried about a lot of people. I'm struggling to explain . Patient reports she believes she has been wire tapped by the news . med compliant. Increased: Geodon to 60mg PO BID Patient educated on: medication risk/benefits and therapeutic strategies Informed Consent: understands Reason for continued inpatient stay Substantial Risk for: med/psych decompensation Time Spent With Patient Time: Total time managing care of this patient today _30___ minutes.
[2023-08-01] MEDS: LORazepam 1 MG TABLET PO (15:00)
[2023-08-01] MEDS: HaloperidoL 5 MG TABLET PO (15:10)
[2023-08-01] MEDS: Ziprasidone 60 MG CAPSULE PO (17:48)
[2023-08-01] MEDS: cloNIDine HCL 0.1 MG TABLET PO (22:12)
[2023-08-02 08:25] VITALS: BP 118/64; PULSE 91; TEMP 36.8; O2SAT 95
[2023-08-02] MEDS: metFORMIN HCl 1,000 MG TABLET 1000 MG PO (08:48)
[2023-08-02] MEDS: Ziprasidone 60 MG CAPSULE PO ×2 (08:48→18:29)
[2023-08-02] MEDS: NaPROXEN 500 MG TABLET PO (08:48)
[2023-08-02] MEDS: lisinopriL 2.5 MG TABLET PO (08:49)
[2023-08-02] MEDS: Propranolol HCL 10 MG TABLET PO ×2 (08:49→20:40)
--- NOTE | 2023-08-02 09:26 | HO.PSYCHPN ---
Subjective Subjective Date of Service: 08/02/23 Reason For Visit: pt exp delusions, pt denies si/hi, per ems Subjective Notes: Conditional Voluntary Interim History: Reviewed in team and . Pt presents disorganized with thought blocking; conversation is more fluid today after receiving Haldol 5mg PO once and Ativan 1mg PO once yesterday. Observed responding to internal stimuli, keeping to self. Patient denies AH and stated, I usually talk to myself. I'm making a lot of social mistakes here . Patient stated, I'm feeling stressed out. I don't know how to explain it . Patient reports visual hallucinations of a bunch of stuff but could not elaborate. Denies SI/HI. Medication Compliance: Yes Side effects from medications: No Attending Groups: No Review of Systems Constitutional: Reports as per HPI Eyes: Reports as per HPI Reports as per HPI Cardiovascular: Reports as per HPI Respiratory: Reports as per HPI Gastrointestinal: Reports as per HPI Genitourinary: Reports as per HPI Musculoskeletal: Reports as per HPI Skin/Breast: Reports as per HPI Reports as per HPI Psychiatric: Reports as per HPI Endocrine: Reports as per HPI Hematologic/Lymphatic: Reports as per HPI Allergic/Immunologic: Reports as per HPI Mental Status Exam Mental Status Exam Narrative: Pt is alert and oriented; behavior is guarded; dressed in casual attire with unkempt hair; mood is described as ok ; eye contact appropriate; Speech is normal rate, volume and prosody and not pressured, delayed responses; thought process is disorganized; with thought blocking; denies SI/HI. Reports visual hallucinations. denies AH. Patients insight and judgment are poor. Diagnostics Vital Signs (24Hr): Vital Signs - 24 hr 08/02/23 08:25 Temperature 98.2 F Pulse Rate 91 Blood Pressure 118/64 Pulse Oximetry 95 Oxygen Delivery Method Room Air BMI result Body Mass Index 39.0 Labs 07/28/23 22:30 07/28/23 22:30 Medications Medications Current Medications Acetaminophen (Acetaminophen 325 Mg Tablet) 650 mg PO Q6H PRN PRN Reason: Headache/Pain Mild Scale (1-3) Al Hydroxide/Mg Hydroxide (Magnesium Hydrox/Alum Hydrox 30 Ml Oral.Susp) 30 ml PO Q6H PRN PRN Reason: Heartburn/Nausea Albuterol Sulfate (Albuterol Sulfate 90 Mcg 8 Gm Inhaler) 2 puff INHALE RQ4H PRN PRN Reason: short of breath Clonidine HCl (Clonidine Hcl 0.1 Mg Tablet) 0.1 mg PO BID PRN; Protocol PRN Reason: Anxiety Last Admin: 08/01/23 22:12 Dose: 0.1 mg Hydroxyzine HCl (Hydroxyzine Hcl 25 Mg Tablet) 25 mg PO Q6H PRN PRN Reason: Anxiety Last Admin: 07/31/23 17:01 Dose: 25 mg Lisinopril (Lisinopril 2.5 Mg Tablet) 2.5 mg PO DAILY [facility]; Protocol Last Admin: 08/02/23 08:49 Dose: 2.5 mg Lorazepam (Lorazepam 0.5 Mg Tablet) 0.5 mg PO TID PRN PRN Reason: anxiety/restlessness Magnesium Hydroxide (Milk Of Magnesia 30 Ml Oral.Susp) 30 ml PO DAILY PRN PRN Reason: Constipation Metformin HCl (Metformin Hcl 1,000 Mg Tablet) 1,000 mg PO BID [facility] Last Admin: 08/02/23 08:48 Dose: 1,000 mg Naproxen (Naproxen 500 Mg Tablet) 500 mg PO BID [facility] Last Admin: 08/02/23 08:48 Dose: 500 mg Olanzapine (Olanzapine 5 Mg Tablet) 5 mg PO TID PRN PRN Reason: agitation Propranolol HCl (Propranolol Hcl 10 Mg Tablet) 10 mg PO BID [facility]; Protocol Last Admin: 08/02/23 08:49 Dose: 10 mg Trazodone HCl (Trazodone Hcl 50 Mg Tablet) 50 mg PO BEDTIME MRX1 PRN PRN Reason: Insomnia Ziprasidone (Ziprasidone 60 Mg Capsule) 60 mg PO DAILY@1700 [facility] Last Admin: 08/01/23 17:48 Dose: 60 mg Ziprasidone (Ziprasidone 60 Mg Capsule) 60 mg PO DAILY [facility] Last Admin: 08/02/23 08:48 Dose: 60 mg Allergies Allergies Allergy/AdvReac Type Severity Reaction Status Date / Time clotrimazole Allergy Severe Rash Verified 09/23/22 02:18 Assessment & Plan Assessment & Plan (1) Schizoaffective disorder: Status: Acute Code(s): F25.9 - Schizoaffective disorder, unspecified Plan Patient is a 27 year old female (they/them) with hx of Schizoaffective d/o who presented [place] [facility] [place] with paranoia, delusions throughout the day which resulted in them calling the police to report a bomb threat on their old apartment building secondary to medication non-compliance. Plan: CV 15 minute safety checks Continue home medications Obtain collateral Discuss starting on mood stabilizer 08/01: Pt presents disorganized with thought blocking. Observed responding to internal stimuli, keeping to self. Pt stated, I'm struggling but whatever. There are too many threats in my life right now and it's making me confused. I'm worried about a lot of people. I'm struggling to explain . Patient reports she believes she has been wire tapped by the news . med compliant. Increased: Geodon to 60mg PO BID 08/02: Pt presents disorganized with thought blocking; conversation is more fluid today after receiving Haldol 5mg PO once and Ativan 1mg PO once yesterday. Observed responding to internal stimuli, keeping to self. Patient denies AH and stated, I usually talk to myself. I'm making a lot of social mistakes here . Patient stated, I'm feeling stressed out. I don't know how to explain it . Patient reports visual hallucinations of a bunch of stuff but could not elaborate. Denies SI/HI. Given another one time dose of Haldol 5mg PO and Ativan 1mg PO. Continue current tx plan. Patient educated on: diagnosis, medication risk/benefits and therapeutic strategies Informed Consent: understands and further education needed Reason for continued inpatient stay Substantial Risk for: med/psych decompensation Time Spent With Patient Time: Total time managing care of this patient today 30____ minutes.
[2023-08-02] MEDS: LORazepam 1 MG TABLET PO (12:58)
[2023-08-02] MEDS: HaloperidoL 5 MG TABLET PO (12:59)
[2023-08-02 18:00] VITALS: BP 162/81; PULSE 112; RESP 18; TEMP 36.3; O2SAT 97
--- NOTE | 2023-08-02 19:00 | PC.NURSE ---
Pt used the patient phone to call 911 because it's my right to call for help, I need emergency surgery now! Pt was redirected from the phone and will need to be monitored for future phone calls.
[2023-08-02] MEDS: LORazepam 0.5 MG TABLET PO (20:40)
[2023-08-03 09:00] VITALS: BP 125/75; PULSE 93; RESP 18; TEMP 36.3; O2SAT 97
[2023-08-03] MEDS: Propranolol HCL 10 MG TABLET PO ×2 (09:00→22:17)
[2023-08-03] MEDS: Ziprasidone 60 MG CAPSULE PO ×2 (09:00→18:04)
[2023-08-03] MEDS: metFORMIN HCl 1,000 MG TABLET 1000 MG PO (09:00)
[2023-08-03] MEDS: NaPROXEN 500 MG TABLET PO (09:00)
[2023-08-03] MEDS: lisinopriL 2.5 MG TABLET PO (09:01)
[2023-08-03] MEDS: LORazepam 0.5 MG TABLET PO ×2 (09:01→22:18)
--- NOTE | 2023-08-03 15:15 | P.PNPSI_ITS ---
Subjective Subjective Date of Service: 08/03/23 Reason For Visit: pt exp delusions, pt denies si/hi, per ems Interim History: Met with patient. Discussed with Nursing. Overall to his psychosis and perseveration believes that people think she is a bad person and a killer in her words. Reports that she politically assess needed a police captain precinct i.e. nothing physical and feels bad arguments. Sleep okay. Energy okay. Still hallucinating and believes there is a snake inside her. Is taking medications. Medication Compliance: Yes Side effects from medications: No Attending Groups: Intermittent Review of Systems Acute medical concerns: No Review of Systems Review of Systems Nothing acute Mental Status Exam Mental Status Exam Narrative: pleasant. Engaged. Fairly presented. Pressured and tangential. Anxious. No SI. No HI. Started delusions. Hallucinations. Insight and judgment limited Diagnostics Vital Signs (24Hr): Vital Signs - 24 hr 08/02/23 18:00 08/03/23 09:00 Temperature 97.3 F 97.3 F Pulse Rate 112 H 93 Respiratory Rate 18 18 Blood Pressure 162/81 H 125/75 Pulse Oximetry 97 97 Oxygen Delivery Method Room Air Room Air BMI result Body Mass Index 39.0 Labs 07/28/23 22:30 07/28/23 22:30 Medications Medications Current Medications Acetaminophen (Acetaminophen 325 Mg Tablet) 650 mg PO Q6H PRN PRN Reason: Headache/Pain Mild Scale (1-3) Al Hydroxide/Mg Hydroxide (Magnesium Hydrox/Alum Hydrox 30 Ml Oral.Susp) 30 ml PO Q6H PRN PRN Reason: Heartburn/Nausea Albuterol Sulfate (Albuterol Sulfate 90 Mcg 8 Gm Inhaler) 2 puff INHALE RQ4H PRN PRN Reason: short of breath Clonidine HCl (Clonidine Hcl 0.1 Mg Tablet) 0.1 mg PO BID PRN; Protocol PRN Reason: Anxiety Last Admin: 08/01/23 22:12 Dose: 0.1 mg Hydroxyzine HCl (Hydroxyzine Hcl 25 Mg Tablet) 25 mg PO Q6H PRN PRN Reason: Anxiety Last Admin: 07/31/23 17:01 Dose: 25 mg Lisinopril (Lisinopril 2.5 Mg Tablet) 2.5 mg PO DAILY [facility]; Protocol Last Admin: 08/03/23 09:01 Dose: 2.5 mg Lorazepam (Lorazepam 0.5 Mg Tablet) 0.5 mg PO TID [facility] Last Admin: 08/03/23 09:01 Dose: 0.5 mg Magnesium Hydroxide (Milk Of Magnesia 30 Ml Oral.Susp) 30 ml PO DAILY PRN PRN Reason: Constipation Metformin HCl (Metformin Hcl 1,000 Mg Tablet) 1,000 mg PO BID [facility] Last Admin: 08/03/23 09:00 Dose: 1,000 mg Naproxen (Naproxen 500 Mg Tablet) 500 mg PO BID [facility] Last Admin: 08/03/23 09:00 Dose: 500 mg Olanzapine (Olanzapine 5 Mg Tablet) 5 mg PO TID PRN PRN Reason: agitation Propranolol HCl (Propranolol Hcl 10 Mg Tablet) 10 mg PO BID [facility]; Protocol Last Admin: 08/03/23 09:00 Dose: 10 mg Trazodone HCl (Trazodone Hcl 50 Mg Tablet) 50 mg PO BEDTIME MRX1 PRN PRN Reason: Insomnia Ziprasidone (Ziprasidone 60 Mg Capsule) 60 mg PO DAILY@1700 [facility] Last Admin: 08/02/23 18:29 Dose: 60 mg Ziprasidone (Ziprasidone 60 Mg Capsule) 60 mg PO DAILY [facility] Last Admin: 08/03/23 09:00 Dose: 60 mg Allergies Allergies Allergy/AdvReac Type Severity Reaction Status Date / Time clotrimazole Allergy Severe Rash Verified 09/23/22 02:18 Assessment & Plan Assessment & Plan (1) Schizoaffective disorder: Status: Acute Code(s): F25.9 - Schizoaffective disorder, unspecified Plan Patient is a 27 year old female (they/them) with hx of Schizoaffective d/o who presented to [facility] [place] with paranoia, delusions throughout the day which resulted in them calling the police to report a bomb threat on their old apartment building secondary to medication non-compliance. Plan: CV 15 minute safety checks Continue home medications Obtain collateral Discuss starting on mood stabilizer 08/01: Pt presents disorganized with thought blocking. Observed responding to internal stimuli, keeping to self. Pt stated, I'm struggling but whatever. There are too many threats in my life right now and it's making me confused. I'm worried about a lot of people. I'm struggling to explain . Patient reports she believes she has been wire tapped by the news . med compliant. Increased: Geodon to 60mg PO BID 08/02: Pt presents disorganized with thought blocking; conversation is more fluid today after receiving Haldol 5mg PO once and Ativan 1mg PO once yesterday. Observed responding to internal stimuli, keeping to self. Patient denies AH and stated, I usually talk to myself. I'm making a lot of social mistakes here . Patient stated, I'm feeling stressed out. I don't know how to explain it . Patient reports visual hallucinations of a bunch of stuff but could not elaborate. Denies SI/HI. Given another one time dose of Haldol 5mg PO and Ativan 1mg PO. Continue current tx plan. 08/03: no current changes Reason for continued inpatient stay Substantial Risk for: inability to function Time Spent With Patient Time: Total time managing care of this patient today ____ minutes.
[2023-08-03 15:42] LABS: Appearance Urine Clear; Color Urine Yellow; Glucose Urine UA Negative (Negative); Leukocyte Esterase Urine Moderate (2+) (Negative); Nitrite Urine Negative (Negative); PH 5.5 (5.0-9.0); UMIC TRIGGER UACC YES; Urine Blood Negative (Negative); Urine Ketones Negative (Negative); Urine Protein Negative (Neg-Trace)
[2023-08-03 15:47] LABS: Bacteria Urine Trace (None Seen); Hyaline Casts Urine 0-2 /LPF (0-2); RBC Urine 0-2 /HPF (0-2); UACC Culture Trigger YES; WBC Urine 21-50 /HPF (0-5)
--- NOTE | 2023-08-03 16:48 | HO.PSYCHPN ---
Subjective Subjective Date of Service: 08/03/23 Reason For Visit: pt exp delusions, pt denies si/hi, per ems Interim History: Ongoing bizarre delusions. Diagnostics Vital Signs (24Hr): Vital Signs - 24 hr 08/02/23 18:00 08/03/23 09:00 Temperature 97.3 F 97.3 F Pulse Rate 112 H 93 Respiratory Rate 18 18 Blood Pressure 162/81 H 125/75 Pulse Oximetry 97 97 Oxygen Delivery Method Room Air Room Air BMI result Body Mass Index 39.0 Labs 07/28/23 22:30 07/28/23 22:30 Labs: Laboratory Results - last 48 hr 08/03/23 15:00 Urine Color Yellow Urine Appearance Clear Urine pH 5.5 Ur Specific [place] 1.010 Urine Protein Negative Urine Glucose (UA) Negative Urine Ketones Negative Urine Blood Negative Urine Nitrite Negative Ur Leukocyte Esterase Moderate (2+) H Urine RBC 0-2 Urine WBC 21-50 H Ur Squamous Epith Cells 3-5 Urine Bacteria Trace Hyaline Casts 0-2 Medications Medications Current Medications Acetaminophen (Acetaminophen 325 Mg Tablet) 650 mg PO Q6H PRN PRN Reason: Headache/Pain Mild Scale (1-3) Al Hydroxide/Mg Hydroxide (Magnesium Hydrox/Alum Hydrox 30 Ml Oral.Susp) 30 ml PO Q6H PRN PRN Reason: Heartburn/Nausea Albuterol Sulfate (Albuterol Sulfate 90 Mcg 8 Gm Inhaler) 2 puff INHALE RQ4H PRN PRN Reason: short of breath Clonidine HCl (Clonidine Hcl 0.1 Mg Tablet) 0.1 mg PO BID PRN; Protocol PRN Reason: Anxiety Last Admin: 08/01/23 22:12 Dose: 0.1 mg Hydroxyzine HCl (Hydroxyzine Hcl 25 Mg Tablet) 25 mg PO Q6H PRN PRN Reason: Anxiety Last Admin: 07/31/23 17:01 Dose: 25 mg Lisinopril (Lisinopril 2.5 Mg Tablet) 2.5 mg PO DAILY [facility]; Protocol Last Admin: 08/03/23 09:01 Dose: 2.5 mg Lorazepam (Lorazepam 0.5 Mg Tablet) 0.5 mg PO TID [facility] Last Admin: 08/03/23 15:40 Dose: Not Given Magnesium Hydroxide (Milk Of Magnesia 30 Ml Oral.Susp) 30 ml PO DAILY PRN PRN Reason: Constipation Metformin HCl (Metformin Hcl 1,000 Mg Tablet) 1,000 mg PO BID [facility] Last Admin: 08/03/23 09:00 Dose: 1,000 mg Naproxen (Naproxen 500 Mg Tablet) 500 mg PO BID [facility] Last Admin: 08/03/23 09:00 Dose: 500 mg Olanzapine (Olanzapine 5 Mg Tablet) 5 mg PO TID PRN PRN Reason: agitation Propranolol HCl (Propranolol Hcl 10 Mg Tablet) 10 mg PO BID [facility]; Protocol Last Admin: 08/03/23 09:00 Dose: 10 mg Trazodone HCl (Trazodone Hcl 50 Mg Tablet) 50 mg PO BEDTIME MRX1 PRN PRN Reason: Insomnia Ziprasidone (Ziprasidone 60 Mg Capsule) 60 mg PO DAILY@1700 [facility] Last Admin: 08/02/23 18:29 Dose: 60 mg Ziprasidone (Ziprasidone 60 Mg Capsule) 60 mg PO DAILY [facility] Last Admin: 08/03/23 09:00 Dose: 60 mg Allergies Allergies Allergy/AdvReac Type Severity Reaction Status Date / Time clotrimazole Allergy Severe Rash Verified 09/23/22 02:18 Assessment & Plan Assessment & Plan (1) Schizoaffective disorder: Status: Acute Code(s): F25.9 - Schizoaffective disorder, unspecified Plan Patient is a 27 year old female (they/them) with hx of Schizoaffective d/o who [place] [facility] [place], delusions throughout the day which resulted in them calling the police to report a bomb threat on their old apartment building secondary to medication non-compliance. Plan: CV 15 minute safety checks Continue home medications Obtain collateral Discuss starting on mood stabilizer 08/01: Pt presents disorganized with thought blocking. Observed responding to internal stimuli, keeping to self. Pt stated, I'm struggling but whatever. There are too many threats in my life right now and it's making me confused. I'm worried about a lot of people. I'm struggling to explain . Patient reports she believes she has been wire tapped by the news . med compliant. Increased: Geodon to 60mg PO BID 08/02: Pt presents disorganized with thought blocking; conversation is more fluid today after receiving Haldol 5mg PO once and Ativan 1mg PO once yesterday. Observed responding to internal stimuli, keeping to self. Patient denies AH and stated, I usually talk to myself. I'm making a lot of social mistakes here . Patient stated, I'm feeling stressed out. I don't know how to explain it . Patient reports visual hallucinations of a bunch of stuff but could not elaborate. Denies SI/HI. Given another one time dose of Haldol 5mg PO and Ativan 1mg PO. Continue current tx plan. 08/03: no current changes Time Spent With Patient Time: Total time managing care of this patient today ____ minutes.
[2023-08-03 20:35] VITALS: BP 152/83; PULSE 83; RESP 18; TEMP 36.2; O2SAT 97
--- NOTE | 2023-08-03 22:32 | PC.NURSE ---
Addendum entered by Eliza Mcrae RN 08/04/23 05:49: Sally has been intermittently restless. she states that she thought I had privacy in my brain but, I don't even have privacy in my brain. they are transmitting directly into my brain. they said they're gonna kill my friends and family because of my mistakes but that's not right no one should have to because of what I did. I tried to call 911 to have the police worn them but the phone isn't working but, I have to call the police. I can't sleep because every time I try that's when they transmit the most This designer writer offered the patient medication to help with the 'transmissions' to which she responded by saying that my logic makes no sense medication doesn't effect transmissions patient reassured for her safety, continue to monitor for safety, encourage patient to take medications as ordered, continue Plan of Care Original Note: Sally is isolating/withdrawn and suspicious. she has remained in her room throughout the evening other then taking a shower. she states that she hears people yelling at her and saying all kinds of lies about [her] and that she is worried that it is negatively impacting other patients. I think I would be feeling better if I had a room of my own with a shower in it so I don't bother anyone else patient reassured that she is not impacting anyone's care negatively. she stated 'I'm having visual hallucinations but not auditory ones. I know when I'm having auditory hallucinations this is different patient refused her metformin and her naproxen, your computer is wrong I've never taken naproxen before. I think my allergies have changed everytime I take the metformin I gag and it tastes different then before continue to monitor for safety, encourage groups, continue Plan of Care
[2023-08-04 08:15] VITALS: BP 134/90; PULSE 89; RESP 16; TEMP 36.2; O2SAT 96
[2023-08-04] MEDS: LORazepam 0.5 MG TABLET PO ×3 (08:16→20:16)
[2023-08-04] MEDS: Ziprasidone 60 MG CAPSULE PO ×2 (08:16→18:18)
[2023-08-04] MEDS: lisinopriL 2.5 MG TABLET PO (08:17)
[2023-08-04] MEDS: Propranolol HCL 10 MG TABLET PO (08:18)
[2023-08-04 09:07] LABS: Creatinine Clr Calc Pharmacy 112.1; Estimated Glomerular Filt Rate > 60
[2023-08-04 10:11] LABS: Adenovirus F 40/41 Not Detected (Not Detect.); Astrovirus Not Detected (Not Detect.); Campylobacter Not Detected (Not Detect.); Cryptosporidium Not Detected (Not Detect.); Cyclospora cayetanensis Not Detected (Not Detect.); E. coli EAEC Not Detected (Not Detect.); E. coli EPEC Not Detected (Not Detect.); E. coli ETEC Not Detected (Not Detect.); E. coli STEC Not Detected (Not Detect.); Entamoeba histolytica Not Detected (Not Detect.); Giardia lamblia Not Detected (Not Detect.); Norovirus GI/GII Not Detected (Not Detect.); Plesiomonas shigelloides Not Detected (Not Detect.); Rotavirus A Not Detected (Not Detect.); Salmonella Not Detected (Not Detect.); Sapovirus Not Detected (Not Detect.); Shigella sp./EIEC Not Detected (Not Detect.); Vibrio Not Detected (Not Detect.); Vibrio Cholerae Not Detected (Not Detect.); Yersinia enterocolitica Not Detected (Not Detect.)
--- NOTE | 2023-08-04 15:26 | P.PNPSI_ITS ---
Subjective Subjective Date of Service: 08/04/23 Reason For Visit: pt exp delusions, pt denies si/hi, per ems Interim History: Patient continues to present is very psychotic. Stated that she cannot sleep because that is when people access her body. Believes that people talk negatively about her and say things that are not true. Denies SI. Is adherent with meds. Medication Compliance: Yes Side effects from medications: No Attending Groups: Intermittent Review of Systems Acute medical concerns: No Review of Systems Review of Systems Nothing acute Mental Status Exam Mental Status Exam Narrative: pleasant. Engaged. Fairly presented. More tired today. Anxious. No SI. No HI. Bizarre delusions. Hallucinations. Insight and judgment limited Diagnostics Vital Signs (24Hr): Vital Signs - 24 hr 08/03/23 20:35 08/04/23 08:15 Temperature 97.2 F 97.1 F Pulse Rate 83 89 Respiratory Rate 18 16 Blood Pressure 152/83 H 134/90 H Pulse Oximetry 97 96 Oxygen Delivery Method Room Air Room Air BMI result Body Mass Index 39.0 Labs 07/28/23 22:30 08/04/23 08:37 Labs: Laboratory Results - last 48 hr 08/03/23 08/04/23 15:00 08:37 Creatinine 0.78 Estim Creat Clear Calc 112.1 Estimated GFR > 60 Urine Color Yellow Urine Appearance Clear Urine pH 5.5 Ur Specific [place] 1.010 Urine Protein Negative Urine Glucose (UA) Negative Urine Ketones Negative Urine Blood Negative Urine Nitrite Negative Ur Leukocyte Esterase Moderate (2+) H Urine RBC 0-2 Urine WBC 21-50 H Ur Squamous Epith Cells 3-5 Urine Bacteria Trace Hyaline Casts 0-2 Stl C. cayetanensis PCR Not Detected Stool Rotavirus A PCR Not Detected Stl Adenov F 40/41 PCR Not Detected Stool Astrovirus (PCR) Not Detected Stool Campylobacter PCR Not Detected Stool Cryptosporidium PCR Not Detected Stl Sh Tox Pr E STEC PCR Not Detected Stool E coli O157 PCR Not applicable Stl Enterotoxigenic E PCR Not Detected Stool EPEC (PCR) Not Detected Stool EAEC (PCR) Not Detected Stl E. histolytica PCR Not Detected Stool Giardia Lamblia PCR Not Detected Stl P. shigelloides PCR Not Detected Stool Salmonella PCR Not Detected Stool Sapovirus (PCR) Not Detected Stl Shigella/EIEC PCR Not Detected St Y.enterocolitica PCR Not Detected Stool Vibrio (PCR) Not Detected Stl Vibrio cholerae PCR Not Detected Stl Norovirus GI/GII PCR Not Detected Medications Medications Current Medications Acetaminophen (Acetaminophen 325 Mg Tablet) 650 mg PO Q6H PRN PRN Reason: Headache/Pain Mild Scale (1-3) Al Hydroxide/Mg Hydroxide (Magnesium Hydrox/Alum Hydrox 30 Ml Oral.Susp) 30 ml PO Q6H PRN PRN Reason: Heartburn/Nausea Albuterol Sulfate (Albuterol Sulfate 90 Mcg 8 Gm Inhaler) 2 puff INHALE RQ4H PRN PRN Reason: short of breath Clonidine HCl (Clonidine Hcl 0.1 Mg Tablet) 0.1 mg PO BID PRN; Protocol PRN Reason: Anxiety Last Admin: 08/01/23 22:12 Dose: 0.1 mg Hydroxyzine HCl (Hydroxyzine Hcl 25 Mg Tablet) 25 mg PO Q6H PRN PRN Reason: Anxiety Last Admin: 07/31/23 17:01 Dose: 25 mg Lisinopril (Lisinopril 2.5 Mg Tablet) 2.5 mg PO DAILY [facility]; Protocol Last Admin: 08/04/23 08:17 Dose: 2.5 mg Lorazepam (Lorazepam 0.5 Mg Tablet) 0.5 mg PO TID [facility] Last Admin: 08/04/23 14:51 Dose: 0.5 mg Magnesium Hydroxide (Milk Of Magnesia 30 Ml Oral.Susp) 30 ml PO DAILY PRN PRN Reason: Constipation Metformin HCl (Metformin Hcl 1,000 Mg Tablet) 1,000 mg PO BID [facility] Last Admin: 08/04/23 08:23 Dose: Not Given Naproxen (Naproxen 500 Mg Tablet) 500 mg PO BID [facility] Last Admin: 08/04/23 08:21 Dose: Not Given Olanzapine (Olanzapine 5 Mg Tablet) 5 mg PO TID PRN PRN Reason: agitation Propranolol HCl (Propranolol Hcl 10 Mg Tablet) 10 mg PO BID [facility]; Protocol Last Admin: 08/04/23 08:18 Dose: 10 mg Trazodone HCl (Trazodone Hcl 50 Mg Tablet) 50 mg PO BEDTIME MRX1 PRN PRN Reason: Insomnia Ziprasidone (Ziprasidone 60 Mg Capsule) 60 mg PO DAILY@1700 [facility] Last Admin: 08/03/23 18:04 Dose: 60 mg Ziprasidone (Ziprasidone 60 Mg Capsule) 60 mg PO DAILY [facility] Last Admin: 08/04/23 08:16 Dose: 60 mg Allergies Allergies Allergy/AdvReac Type Severity Reaction Status Date / Time clotrimazole Allergy Severe Rash Verified 09/23/22 02:18 Assessment & Plan Assessment & Plan (1) Schizoaffective disorder: Status: Acute Code(s): F25.9 - Schizoaffective disorder, unspecified Plan Patient is a 27 year old female (they/them) with hx of Schizoaffective d/o who presented to [facility] [place] with paranoia, delusions throughout the day which resulted in them calling the police to report a bomb threat on their old apartment building secondary to medication non-compliance. Plan: CV 15 minute safety checks Continue home medications Obtain collateral Discuss starting on mood stabilizer 08/01: Pt presents disorganized with thought blocking. Observed responding to internal stimuli, keeping to self. Pt stated, I'm struggling but whatever. There are too many threats in my life right now and it's making me confused. I'm worried about a lot of people. I'm struggling to explain . Patient reports she believes she has been wire tapped by the news . med compliant. Increased: Geodon to 60mg PO BID 08/02: Pt presents disorganized with thought blocking; conversation is more fluid today after receiving Haldol 5mg PO once and Ativan 1mg PO once yesterday. Observed responding to internal stimuli, keeping to self. Patient denies AH and stated, I usually talk to myself. I'm making a lot of social mistakes here . Patient stated, I'm feeling stressed out. I don't know how to explain it . Patient reports visual hallucinations of a bunch of stuff but could not elaborate. Denies SI/HI. Given another one time dose of Haldol 5mg PO and Ativan 1mg PO. Continue current tx plan. 08/03: no current changes 08/04: no changes Reason for continued inpatient stay Substantial Risk for: inability to function Time Spent With Patient Time: Total time managing care of this patient today ____ minutes.
[2023-08-04 20:14] VITALS: BP 138/81; PULSE 110; TEMP 36.6; O2SAT 97
[2023-08-05] MEDS: metFORMIN HCl 1,000 MG TABLET 1000 MG PO (09:04)
[2023-08-05] MEDS: lisinopriL 2.5 MG TABLET PO (09:04)
[2023-08-05] MEDS: Ziprasidone 60 MG CAPSULE PO (09:12)
--- NOTE | 2023-08-05 09:54 | P.PNPSI_ITS ---
Subjective Subjective Date of Service: 08/05/23 Reason For Visit: pt exp delusions, pt denies si/hi, per ems Subjective Notes: Conditional Voluntary Interim History: Reviewed in team and Dr. Gavin. Patient presents alert and oriented today. She is able to state the name of the hospital, the correct month, year, president. However she does present with delusions stating, the last hospital I was at put snakes inside of me and I need to get them removed. I don't need to be on the psychiatric side; I need to be on the medical side of the hospital . Patient reports having visual hallucinations that are distracting but they are not negatively effecting my ability to function . Patient keeping to self, isolative to room. Patient will stop mid-sentence and become distracted by visual hallucinations; she did not elaborate on what they were. Patient reports she would be accepting with an increase in her Geodon and gave verbal permission for T/W to speak with her father. Patient encouraged to consider a JEFF; pt reports other providers have also brought up this topic and would like to consider this option. denies SI/HI/AH. Medication Compliance: Intermittent Side effects from medications: No Attending Groups: No Review of Systems Constitutional: Reports as per HPI Eyes: Reports as per HPI Reports as per HPI Cardiovascular: Reports as per HPI Respiratory: Reports as per HPI Gastrointestinal: Reports as per HPI Genitourinary: Reports as per HPI Musculoskeletal: Reports as per HPI Skin/Breast: Reports as per HPI Reports as per HPI Psychiatric: Reports as per HPI Endocrine: Reports as per HPI Hematologic/Lymphatic: Reports as per HPI Allergic/Immunologic: Reports as per HPI Mental Status Exam Mental Status Exam Narrative: Pt is alert and oriented; behavior is guarded and calm; dressed in casual attire with unkempt hair; mood is described as anxious ; eye contact appropriate; Speech is normal rate; thought process is organized and goal directed; Thought content is delusional; denies any SI/HI/AH. Pt reports visual hallucinations. Patients insight and judgment are poor. Diagnostics Vital Signs (24Hr): Vital Signs - 24 hr 08/04/23 20:14 Temperature 97.9 F Pulse Rate 110 H Blood Pressure 138/81 Pulse Oximetry 97 Oxygen Delivery Method Room Air BMI result Body Mass Index 39.0 Labs 07/28/23 22:30 08/04/23 08:37 Labs: Laboratory Results - last 48 hr 08/03/23 08/04/23 15:00 08:37 Creatinine 0.78 Estim Creat Clear Calc 112.1 Estimated GFR > 60 Urine Color Yellow Urine Appearance Clear Urine pH 5.5 Ur Specific [employer] 1.010 Urine Protein Negative Urine Glucose (UA) Negative Urine Ketones Negative Urine Blood Negative Urine Nitrite Negative Ur Leukocyte Esterase Moderate (2+) H Urine RBC 0-2 Urine WBC 21-50 H Ur Squamous Epith Cells 3-5 Urine Bacteria Trace Hyaline Casts 0-2 Stl C. cayetanensis PCR Not Detected Stool Rotavirus A PCR Not Detected Stl Adenov F 40/41 PCR Not Detected Stool Astrovirus (PCR) Not Detected Stool Campylobacter PCR Not Detected Stool Cryptosporidium PCR Not Detected Stl Sh Tox Pr E STEC PCR Not Detected Stool E coli O157 PCR Not applicable Stl Enterotoxigenic E PCR Not Detected Stool EPEC (PCR) Not Detected Stool EAEC (PCR) Not Detected Stl E. histolytica PCR Not Detected Stool Giardia Lamblia PCR Not Detected Stl P. shigelloides PCR Not Detected Stool Salmonella PCR Not Detected Stool Sapovirus (PCR) Not Detected Stl Shigella/EIEC PCR Not Detected St Y.enterocolitica PCR Not Detected Stool Vibrio (PCR) Not Detected Stl Vibrio cholerae PCR Not Detected Stl Norovirus GI/GII PCR Not Detected Medications Medications Current Medications Acetaminophen (Acetaminophen 325 Mg Tablet) 650 mg PO Q6H PRN PRN Reason: Headache/Pain Mild Scale (1-3) Al Hydroxide/Mg Hydroxide (Magnesium Hydrox/Alum Hydrox 30 Ml Oral.Susp) 30 ml PO Q6H PRN PRN Reason: Heartburn/Nausea Albuterol Sulfate (Albuterol Sulfate 90 Mcg 8 Gm Inhaler) 2 puff INHALE RQ4H PRN PRN Reason: short of breath Clonidine HCl (Clonidine Hcl 0.1 Mg Tablet) 0.1 mg PO BID [facility]; Protocol PRN Reason: Anxiety Last Admin: 08/01/23 22:12 Dose: 0.1 mg Hydroxyzine HCl (Hydroxyzine Hcl 25 Mg Tablet) 25 mg PO Q6H PRN PRN Reason: Anxiety Last Admin: 07/31/23 17:01 Dose: 25 mg Lisinopril (Lisinopril 2.5 Mg Tablet) 2.5 mg PO DAILY [facility]; Protocol Last Admin: 08/05/23 09:04 Dose: 2.5 mg Lorazepam (Lorazepam 0.5 Mg Tablet) 0.5 mg PO TID [facility] Last Admin: 08/05/23 09:15 Dose: Not Given Magnesium Hydroxide (Milk Of Magnesia 30 Ml Oral.Susp) 30 ml PO DAILY PRN PRN Reason: Constipation Metformin HCl (Metformin Hcl 1,000 Mg Tablet) 1,000 mg PO BID [facility] Last Admin: 08/05/23 09:04 Dose: 1,000 mg Naproxen (Naproxen 500 Mg Tablet) 500 mg PO BID [facility] Last Admin: 08/05/23 09:09 Dose: Not Given Olanzapine (Olanzapine 5 Mg Tablet) 5 mg PO TID PRN PRN Reason: agitation Propranolol HCl (Propranolol Hcl 10 Mg Tablet) 10 mg PO BID [facility]; Protocol Last Admin: 08/05/23 09:15 Dose: Not Given Trazodone HCl (Trazodone Hcl 50 Mg Tablet) 50 mg PO BEDTIME MRX1 PRN PRN Reason: Insomnia Ziprasidone (Ziprasidone 60 Mg Capsule) 60 mg PO DAILY@1700 [facility] Last Admin: 08/04/23 18:18 Dose: 60 mg Ziprasidone (Ziprasidone 60 Mg Capsule) 60 mg PO DAILY [facility] Last Admin: 08/05/23 09:12 Dose: 60 mg Allergies Allergies Allergy/AdvReac Type Severity Reaction Status Date / Time clotrimazole Allergy Severe Rash Verified 09/23/22 02:18 Assessment & Plan Assessment & Plan (1) Schizoaffective disorder: Status: Acute Code(s): F25.9 - Schizoaffective disorder, unspecified Plan Patient is a 27 year old female (they/them) with hx of Schizoaffective d/o who [place] [facility], delusions throughout the day which resulted in them calling the police to report a bomb threat on their old apartment building secondary to medication non-compliance. Plan: CV 15 minute safety checks Continue home medications Obtain collateral Discuss starting on mood stabilizer 08/01: Pt presents disorganized with thought blocking. Observed responding to internal stimuli, keeping to self. Pt stated, I'm struggling but whatever. There are too many threats in my life right now and it's making me confused. I'm worried about a lot of people. I'm struggling to explain . Patient reports she believes she has been wire tapped by the news . med compliant. Increased: Geodon to 60mg PO BID 08/02: Pt presents disorganized with thought blocking; conversation is more fluid today after receiving Haldol 5mg PO once and Ativan 1mg PO once yesterday. Observed responding to internal stimuli, keeping to self. Patient denies AH and stated, I usually talk to myself. I'm making a lot of social mistakes here . Patient stated, I'm feeling stressed out. I don't know how to explain it . Patient reports visual hallucinations of a bunch of stuff but could not elaborate. Denies SI/HI. Given another one time dose of Haldol 5mg PO and Ativan 1mg PO. Continue current tx plan. 08/03: no current changes 08/04: no changes 08/05: Increased Geodon to 60mg PO BID. Patient presents alert and oriented today. She is able to state the name of the hospital, the correct month, year, president. However she does present with delusions stating, the last hospital I was at put snakes inside of me and I need to get them removed. I don't need to be on the psychiatric side; I need to be on the medical side of the hospital . Patient reports having visual hallucinations that are distracting but they are not negatively effecting my ability to function . Patient keeping to self, isolative to room. Patient will stop mid-sentence and become distracted by visual hallucinations; she did not elaborate on what they were. Patient reports she would be accepting with an increase in her Geodon and gave verbal permission for T/W to speak with her father. Patient encouraged to consider a JEFF; pt reports other providers have also brought up this topic and would like to consider this option. denies SI/HI/AH Patient educated on: diagnosis and medication risk/benefits Informed Consent: understands and further education needed Reason for continued inpatient stay Substantial Risk for: med/psych decompensation Time Spent With Patient Time: Total time managing care of this patient today _30___ minutes.
[2023-08-05 11:07] VITALS: BP 129/82; PULSE 96; RESP 20; TEMP 37.1; O2SAT 96
[2023-08-05 19:45] VITALS: BP 135/83; PULSE 107; RESP 16; TEMP 36.5; O2SAT 96
--- NOTE | 2023-08-06 09:33 | HO.PSYCHPN ---
Subjective Subjective Date of Service: 08/06/23 Reason For Visit: pt exp delusions, pt denies si/hi, per ems Subjective Notes: Conditional Voluntary Interim History: Reviewed in team and Dr. Gavin. Patient keeping to self, isolative to room, not attending groups. Presents with thought blocking, not eating unless prompted by staff. Refused medications despite staff encouragement. Observed responding to internal stimuli. Pt continues to believe there is a snake in her body that was placed by last hospitalization. Medication Compliance: Intermittent Side effects from medications: No Attending Groups: No Review of Systems Constitutional: Reports as per HPI Eyes: Reports as per HPI Reports as per HPI Cardiovascular: Reports as per HPI Respiratory: Reports as per HPI Gastrointestinal: Reports as per HPI Genitourinary: Reports as per HPI Musculoskeletal: Reports as per HPI Skin/Breast: Reports as per HPI Reports as per HPI Psychiatric: Reports as per HPI Endocrine: Reports as per HPI Hematologic/Lymphatic: Reports as per HPI Allergic/Immunologic: Reports as per HPI Mental Status Exam Mental Status Exam Narrative: Pt is alert and oriented; behavior is guarded and calm; dressed in casual attire with unkempt hair; mood is described as anxious ; eye contact appropriate; Speech is normal rate; thought blocking; Thought content is delusional, paranoid; denies any SI/HI. observed responding to internal stimuli. Patients insight and judgment are poor. Diagnostics Vital Signs (24Hr): Vital Signs - 24 hr 08/05/23 11:07 08/05/23 19:45 Temperature 98.8 F 97.7 F Pulse Rate 96 107 H Respiratory Rate 20 16 Blood Pressure 129/82 135/83 Pulse Oximetry 96 96 Oxygen Delivery Method Room Air Room Air BMI result Body Mass Index 39.0 Labs 07/28/23 22:30 08/04/23 08:37 Labs: Laboratory Results - last 48 hr 08/03/23 15:00 Stl C. cayetanensis PCR Not Detected Stool Rotavirus A PCR Not Detected Stl Adenov F 40/41 PCR Not Detected Stool Astrovirus (PCR) Not Detected Stool Campylobacter PCR Not Detected Stool Cryptosporidium PCR Not Detected Stl Sh Tox Pr E STEC PCR Not Detected Stool E coli O157 PCR Not applicable Stl Enterotoxigenic E PCR Not Detected Stool EPEC (PCR) Not Detected Stool EAEC (PCR) Not Detected Stl E. histolytica PCR Not Detected Stool Giardia Lamblia PCR Not Detected Stl P. shigelloides PCR Not Detected Stool Salmonella PCR Not Detected Stool Sapovirus (PCR) Not Detected Stl Shigella/EIEC PCR Not Detected St Y.enterocolitica PCR Not Detected Stool Vibrio (PCR) Not Detected Stl Vibrio cholerae PCR Not Detected Stl Norovirus GI/GII PCR Not Detected Medications Medications Current Medications Acetaminophen (Acetaminophen 325 Mg Tablet) 650 mg PO Q6H PRN PRN Reason: Headache/Pain Mild Scale (1-3) Al Hydroxide/Mg Hydroxide (Magnesium Hydrox/Alum Hydrox 30 Ml Oral.Susp) 30 ml PO Q6H PRN PRN Reason: Heartburn/Nausea Albuterol Sulfate (Albuterol Sulfate 90 Mcg 8 Gm Inhaler) 2 puff INHALE RQ4H PRN PRN Reason: short of breath Clonidine HCl (Clonidine Hcl 0.1 Mg Tablet) 0.1 mg PO BID PRN; Protocol PRN Reason: Anxiety Last Admin: 08/01/23 22:12 Dose: 0.1 mg Hydroxyzine HCl (Hydroxyzine Hcl 25 Mg Tablet) 25 mg PO Q6H PRN PRN Reason: Anxiety Last Admin: 07/31/23 17:01 Dose: 25 mg Lisinopril (Lisinopril 2.5 Mg Tablet) 2.5 mg PO DAILY [facility]; Protocol Last Admin: 08/05/23 09:04 Dose: 2.5 mg Lorazepam (Lorazepam 0.5 Mg Tablet) 0.5 mg PO TID [facility] Last Admin: 08/05/23 21:31 Dose: Not Given Magnesium Hydroxide (Milk Of Magnesia 30 Ml Oral.Susp) 30 ml PO DAILY PRN PRN Reason: Constipation Metformin HCl (Metformin Hcl 1,000 Mg Tablet) 1,000 mg PO BID [facility] Last Admin: 08/05/23 21:31 Dose: Not Given Naproxen (Naproxen 500 Mg Tablet) 500 mg PO BID [facility] Last Admin: 08/05/23 21:31 Dose: Not Given Olanzapine (Olanzapine 5 Mg Tablet) 5 mg PO TID PRN PRN Reason: agitation Propranolol HCl (Propranolol Hcl 10 Mg Tablet) 10 mg PO BID [facility]; Protocol Last Admin: 08/05/23 21:31 Dose: Not Given Trazodone HCl (Trazodone Hcl 50 Mg Tablet) 50 mg PO BEDTIME MRX1 PRN PRN Reason: Insomnia Ziprasidone (Ziprasidone 80 Mg Capsule) 80 mg PO DAILY@1700 [facility] Last Admin: 08/05/23 18:36 Dose: Not Given Ziprasidone (Ziprasidone 80 Mg Capsule) 80 mg PO DAILY [facility] Allergies Allergies Allergy/AdvReac Type Severity Reaction Status Date / Time clotrimazole Allergy Severe Rash Verified 09/23/22 02:18 Assessment & Plan Assessment & Plan (1) Schizoaffective disorder: Status: Acute Code(s): F25.9 - Schizoaffective disorder, unspecified Plan Patient is a 27 year old female (they/them) with hx of Schizoaffective d/o who presented to [facility] [place] with paranoia, delusions throughout the day which resulted in them calling the police to report a bomb threat on their old apartment building secondary to medication non-compliance. Plan: CV 15 minute safety checks Continue home medications Obtain collateral Discuss starting on mood stabilizer 08/01: Pt presents disorganized with thought blocking. Observed responding to internal stimuli, keeping to self. Pt stated, I'm struggling but whatever. There are too many threats in my life right now and it's making me confused. I'm worried about a lot of people. I'm struggling to explain . Patient reports she believes she has been wire tapped by the news . med compliant. Increased: Geodon to 60mg PO BID 08/02: Pt presents disorganized with thought blocking; conversation is more fluid today after receiving Haldol 5mg PO once and Ativan 1mg PO once yesterday. Observed responding to internal stimuli, keeping to self. Patient denies AH and stated, I usually talk to myself. I'm making a lot of social mistakes here . Patient stated, I'm feeling stressed out. I don't know how to explain it . Patient reports visual hallucinations of a bunch of stuff but could not elaborate. Denies SI/HI. Given another one time dose of Haldol 5mg PO and Ativan 1mg PO. Continue current tx plan. 08/03: no current changes 08/04: no changes 08/05: Increased Geodon to 60mg PO BID. Patient presents alert and oriented today. She is able to state the name of the hospital, the correct month, year, president. However she does present with delusions stating, the last hospital I was at put snakes inside of me and I need to get them removed. I don't need to be on the psychiatric side; I need to be on the medical side of the hospital . Patient reports having visual hallucinations that are distracting but they are not negatively effecting my ability to function . Patient keeping to self, isolative to room. Patient will stop mid-sentence and become distracted by visual hallucinations; she did not elaborate on what they were. Patient reports she would be accepting with an increase in her Geodon and gave verbal permission for T/W to speak with her father. Patient encouraged to consider a JEFF; pt reports other providers have also brought up this topic and would like to consider this option. denies SI/HI/AH 08/06: Patient keeping to self, isolative to room. Presents with thought blocking, not eating unless prompted by staff. Refused medications despite staff encouragement. Observed responding to internal stimuli. Pt continues to believe there is a snake in her body that was placed by last hospitalization. Continue current tx plan. Consider filing Section 7&8 if pt does not improve d/t safety concerns. Patient educated on: diagnosis and medication risk/benefits Informed Consent: understands and further education needed Reason for continued inpatient stay Substantial Risk for: inability to function and med/psych decompensation Time Spent With Patient Time: Total time managing care of this patient today _30___ minutes.
[2023-08-06 09:58] VITALS: BP 134/81; PULSE 95; RESP 20; TEMP 36.6; O2SAT 97
[2023-08-06 18:00] VITALS: BP 142/91; PULSE 106; RESP 16; TEMP 36.5; O2SAT 95
[2023-08-07 09:18] VITALS: BP 130/76; PULSE 67; RESP 18; TEMP 36.9; O2SAT 97
--- NOTE | 2023-08-07 10:00 | P.PNPSI_ITS ---
Subjective Subjective Reason For Visit: pt exp delusions, pt denies si/hi, per ems Diagnostics Vital Signs (24Hr): Vital Signs - 24 hr 08/06/23 18:00 08/07/23 09:18 Temperature 97.7 F 98.4 F Pulse Rate 106 H 67 Respiratory Rate 16 18 Blood Pressure 142/91 H 130/76 Pulse Oximetry 95 97 Oxygen Delivery Method Room Air Room Air BMI result Body Mass Index 39.0 Labs 07/28/23 22:30 08/04/23 08:37 Medications Medications Current Medications Acetaminophen (Acetaminophen 325 Mg Tablet) 650 mg PO Q6H PRN PRN Reason: Headache/Pain Mild Scale (1-3) Al Hydroxide/Mg Hydroxide (Magnesium Hydrox/Alum Hydrox 30 Ml Oral.Susp) 30 ml PO Q6H PRN PRN Reason: Heartburn/Nausea Albuterol Sulfate (Albuterol Sulfate 90 Mcg 8 Gm Inhaler) 2 puff INHALE RQ4H PRN PRN Reason: short of breath Clonidine HCl (Clonidine Hcl 0.1 Mg Tablet) 0.1 mg PO BID PRN; Protocol PRN Reason: Anxiety Last Admin: 08/01/23 22:12 Dose: 0.1 mg Hydroxyzine HCl (Hydroxyzine Hcl 25 Mg Tablet) 25 mg PO Q6H PRN PRN Reason: Anxiety Last Admin: 07/31/23 17:01 Dose: 25 mg Lisinopril (Lisinopril 2.5 Mg Tablet) 2.5 mg PO DAILY [facility]; Protocol Last Admin: 08/07/23 09:04 Dose: Not Given Lorazepam (Lorazepam 0.5 Mg Tablet) 0.5 mg PO TID [facility] Last Admin: 08/07/23 09:04 Dose: Not Given Magnesium Hydroxide (Milk Of Magnesia 30 Ml Oral.Susp) 30 ml PO DAILY PRN PRN Reason: Constipation Metformin HCl (Metformin Hcl 1,000 Mg Tablet) 1,000 mg PO BID [facility] Last Admin: 08/07/23 09:04 Dose: Not Given Naproxen (Naproxen 500 Mg Tablet) 500 mg PO BID [facility] Last Admin: 08/07/23 09:04 Dose: Not Given Olanzapine (Olanzapine 5 Mg Tablet) 5 mg PO TID PRN PRN Reason: agitation Propranolol HCl (Propranolol Hcl 10 Mg Tablet) 10 mg PO BID [facility]; Protocol Last Admin: 08/07/23 09:04 Dose: Not Given Trazodone HCl (Trazodone Hcl 50 Mg Tablet) 50 mg PO BEDTIME MRX1 PRN PRN Reason: Insomnia Ziprasidone (Ziprasidone 80 Mg Capsule) 80 mg PO DAILY@1700 [facility] Last Admin: 08/06/23 18:25 Dose: Not Given Ziprasidone (Ziprasidone 80 Mg Capsule) 80 mg PO DAILY [facility] Last Admin: 08/07/23 09:05 Dose: Not Given Allergies Allergies Allergy/AdvReac Type Severity Reaction Status Date / Time clotrimazole Allergy Severe Rash Verified 09/23/22 02:18 Assessment & Plan Assessment & Plan (1) Schizoaffective disorder: Status: Acute Code(s): F25.9 - Schizoaffective disorder, unspecified Plan Patient is a 27 year old female (they/them) with hx of Schizoaffective d/o who presented to [facility] [place] with paranoia, delusions throughout the day which resulted in them calling the police to report a bomb threat on their old apartment building secondary to medication non-compliance. Plan: CV 15 minute safety checks Continue home medications Obtain collateral Discuss starting on mood stabilizer 08/01: Pt presents disorganized with thought blocking. Observed responding to internal stimuli, keeping to self. Pt stated, I'm struggling but whatever. There are too many threats in my life right now and it's making me confused. I'm worried about a lot of people. I'm struggling to explain . Patient reports she believes she has been wire tapped by the news . med compliant. Increased: Geodon to 60mg PO BID 08/02: Pt presents disorganized with thought blocking; conversation is more fluid today after receiving Haldol 5mg PO once and Ativan 1mg PO once yesterday. Observed responding to internal stimuli, keeping to self. Patient denies AH and stated, I usually talk to myself. I'm making a lot of social mistakes here . Patient stated, I'm feeling stressed out. I don't know how to explain it . Patient reports visual hallucinations of a bunch of stuff but could not elaborate. Denies SI/HI. Given another one time dose of Haldol 5mg PO and Ativan 1mg PO. Continue current tx plan. 08/03: no current changes 08/04: no changes 08/05: Increased Geodon to 60mg PO BID. Patient presents alert and oriented today. She is able to state the name of the hospital, the correct month, year, president. However she does present with delusions stating, the last hospital I was at put snakes inside of me and I need to get them removed. I don't need to be on the psychiatric side; I need to be on the medical side of the hospital . Patient reports having visual hallucinations that are distracting but they are not negatively effecting my ability to function . Patient keeping to self, isolative to room. Patient will stop mid-sentence and become distracted by visual hallucinations; she did not elaborate on what they were. Patient reports she would be accepting with an increase in her Geodon and gave verbal permission for T/W to speak with her father. Patient encouraged to consider a JEFF; pt reports other providers have also brought up this topic and would like to consider this option. denies SI/HI/AH 08/06: Patient keeping to self, isolative to room. Presents with thought blocking, not eating unless prompted by staff. Refused medications despite staff encouragement. Observed responding to internal stimuli. Pt continues to believe there is a snake in her body that was placed by last hospitalization. Continue current tx plan. Consider filing Section 7&8 if pt does not improve d/t safety concerns. Time Spent With Patient Time: Total time managing care of this patient today ____ minutes.
[2023-08-07] MEDS: NaPROXEN 500 MG TABLET PO (15:28)
[2023-08-07] MEDS: metFORMIN HCl 1,000 MG TABLET 1000 MG PO (15:28)
[2023-08-07 19:40] VITALS: BP 167/67; PULSE 91; RESP 20; TEMP 36.3; O2SAT 98
--- NOTE | 2023-08-07 23:56 | HO.PSYCHPN ---
Subjective Subjective Date of Service: 08/07/23 Reason For Visit: pt exp delusions, pt denies si/hi, per ems Subjective Notes: Conditional Voluntary Interim History: Pt has been withdrawn mostly in her room refusing to take medication fearful it is not her medication preoccupied with multiple paranoid conspiracies against her and that she had tried to harm someone previously florid psychotic preoccupation Medication Compliance: No Side effects from medications: No Attending Groups: No Mental Status Exam Mental Status Exam Narrative: . Patient Appearance: Disheveled Patient Orientation: Person, Place and Situation Level of Consciousness: Awake and Lethargic Patient Behavior: Suspicious, Anxious, Fearful, Distractible and Isolative Mood Description: Suspicious, Withdrawn, Flat and Apprehensive Affect Description: Constricted, Fearful, Anxious and Apprehensive Ability to Follow Directions: Fair Speech Pattern: Delayed and Long Pauses Delusions: Paranoid Ideation Thought Process: Illogical and Rumination Thought Content: negative for Suicidal Ideation or negative for Homicidal Ideation Abnormal Motor Activity Signs and Symptoms: Psychomotor Retardation Judgement: Poor Judgement and Insight: Patient content is preoccupied with multiple fears that she is being attacked hospital is being attacked her medications not really her medication has very limited insight Diagnostics Vital Signs (24Hr): Vital Signs - 24 hr 08/07/23 09:18 08/07/23 19:40 Temperature 98.4 F 97.3 F Pulse Rate 67 91 Respiratory Rate 18 20 Blood Pressure 130/76 167/67 H Pulse Oximetry 97 98 Oxygen Delivery Method Room Air Room Air BMI result Body Mass Index 39.0 Labs 07/28/23 22:30 08/04/23 08:37 Medications Medications Current Medications Acetaminophen (Acetaminophen 325 Mg Tablet) 650 mg PO Q6H PRN PRN Reason: Headache/Pain Mild Scale (1-3) Al Hydroxide/Mg Hydroxide (Magnesium Hydrox/Alum Hydrox 30 Ml Oral.Susp) 30 ml PO Q6H PRN PRN Reason: Heartburn/Nausea Albuterol Sulfate (Albuterol Sulfate 90 Mcg 8 Gm Inhaler) 2 puff INHALE RQ4H PRN PRN Reason: short of breath Clonidine HCl (Clonidine Hcl 0.1 Mg Tablet) 0.1 mg PO BID PRN; Protocol PRN Reason: Anxiety Last Admin: 08/01/23 22:12 Dose: 0.1 mg Hydroxyzine HCl (Hydroxyzine Hcl 25 Mg Tablet) 25 mg PO Q6H PRN PRN Reason: Anxiety Last Admin: 07/31/23 17:01 Dose: 25 mg Lisinopril (Lisinopril 2.5 Mg Tablet) 2.5 mg PO DAILY [facility]; Protocol Last Admin: 08/07/23 09:04 Dose: Not Given Magnesium Hydroxide (Milk Of Magnesia 30 Ml Oral.Susp) 30 ml PO DAILY PRN PRN Reason: Constipation Metformin HCl (Metformin Hcl 1,000 Mg Tablet) 1,000 mg PO BID [facility] Last Admin: 08/07/23 20:14 Dose: Not Given Naproxen (Naproxen 500 Mg Tablet) 500 mg PO BID [facility] Last Admin: 08/07/23 20:13 Dose: Not Given Olanzapine (Olanzapine 5 Mg Tablet) 5 mg PO TID PRN PRN Reason: agitation Propranolol HCl (Propranolol Hcl 10 Mg Tablet) 10 mg PO BID [facility]; Protocol Last Admin: 08/07/23 20:13 Dose: Not Given Trazodone HCl (Trazodone Hcl 50 Mg Tablet) 50 mg PO BEDTIME MRX1 PRN PRN Reason: Insomnia Ziprasidone (Ziprasidone 80 Mg Capsule) 80 mg PO DAILY [facility] Last Admin: 08/07/23 09:05 Dose: Not Given Ziprasidone (Ziprasidone 60 Mg Capsule) 60 mg PO DAILY@1700 [facility] Last Admin: 08/07/23 17:49 Dose: Not Given Allergies Allergies Allergy/AdvReac Type Severity Reaction Status Date / Time clotrimazole Allergy Severe Rash Verified 09/23/22 02:18 Assessment & Plan Assessment & Plan (1) Schizoaffective disorder: Status: Acute Code(s): F25.9 - Schizoaffective disorder, unspecified Patient educated on: diagnosis and medication risk/benefits Informed Consent: does not understand Reason for continued inpatient stay Substantial Risk for: inability to function and rapid decompensation Time Spent With Patient Time: Total time managing care of this patient today 35____ minutes.
--- NOTE | 2023-08-08 09:14 | P.PNPSI_ITS ---
Subjective Subjective Date of Service: 08/08/23 Reason For Visit: pt exp delusions, pt denies si/hi, per ems Subjective Notes: Conditional Voluntary Interim History: Reviewed in team and Dr. Gavin. Patient met with [facility] child welfare caseworker and T/W today. Presents with thought blocking, paranoia, delusional. Believes we are trying to poison her with medications; believes people are spreading rumors about her. Unable to focus on conversation d/t perceptual disturbances. Observed looking around the room, talking to self, pt's name must be called multiple times before responding and stating what? I didn't hear you . She reports she would like to go to a snf after being discharged from hospital. We discussed benefits of JEFF; T/W informed her that her father also mentioned that he would prefer patient to receive JEFF. Pt then shouted, My father would never say that! Someone is impersonating him! . Continues to believe there was a snake placed inside of her body by last hospital. Not eating unless prompted by staff. Refused medications despite staff encouragement. Medication Compliance: No Attending Groups: No Review of Systems Review of Systems Constitutional: Reports as per HPI Eyes: Reports as per HPI Reports as per HPI Cardiovascular: Reports as per HPI Respiratory: Reports as per HPI Gastrointestinal: Reports as per HPI Genitourinary: Reports as per HPI Musculoskeletal: Reports as per HPI Skin/Breast: Reports as per HPI Reports as per HPI Psychiatric: Reports as per HPI Endocrine: Reports as per HPI Hematologic/Lymphatic: Reports as per HPI Allergic/Immunologic: Reports as per HPI Mental Status Exam Mental Status Exam Narrative: Pt is alert and oriented; behavior is guarded and calm; dressed in casual attire with unkempt hair; mood is described as anxious ; eye contact appropriate; Speech is normal rate; thought blocking; Thought content is delusional, paranoid; denies any SI/HI. observed responding to internal stimuli. Patients insight and judgment are poor. Diagnostics Vital Signs (24Hr): Vital Signs - 24 hr 08/07/23 09:18 08/07/23 19:40 Temperature 98.4 F 97.3 F Pulse Rate 67 91 Respiratory Rate 18 20 Blood Pressure 130/76 167/67 H Pulse Oximetry 97 98 Oxygen Delivery Method Room Air Room Air BMI result Body Mass Index 39.0 Labs 07/28/23 22:30 08/04/23 08:37 Medications Medications Current Medications Acetaminophen (Acetaminophen 325 Mg Tablet) 650 mg PO Q6H PRN PRN Reason: Headache/Pain Mild Scale (1-3) Al Hydroxide/Mg Hydroxide (Magnesium Hydrox/Alum Hydrox 30 Ml Oral.Susp) 30 ml PO Q6H PRN PRN Reason: Heartburn/Nausea Albuterol Sulfate (Albuterol Sulfate 90 Mcg 8 Gm Inhaler) 2 puff INHALE RQ4H PRN PRN Reason: short of breath Clonidine HCl (Clonidine Hcl 0.1 Mg Tablet) 0.1 mg PO BID PRN; Protocol PRN Reason: Anxiety Last Admin: 08/01/23 22:12 Dose: 0.1 mg Hydroxyzine HCl (Hydroxyzine Hcl 25 Mg Tablet) 25 mg PO Q6H PRN PRN Reason: Anxiety Last Admin: 07/31/23 17:01 Dose: 25 mg Lisinopril (Lisinopril 2.5 Mg Tablet) 2.5 mg PO DAILY [facility]; Protocol Last Admin: 08/07/23 09:04 Dose: Not Given Magnesium Hydroxide (Milk Of Magnesia 30 Ml Oral.Susp) 30 ml PO DAILY PRN PRN Reason: Constipation Metformin HCl (Metformin Hcl 1,000 Mg Tablet) 1,000 mg PO BID [facility] Last Admin: 08/07/23 20:14 Dose: Not Given Naproxen (Naproxen 500 Mg Tablet) 500 mg PO BID [facility] Last Admin: 08/07/23 20:13 Dose: Not Given Olanzapine (Olanzapine 5 Mg Tablet) 5 mg PO TID PRN PRN Reason: agitation Propranolol HCl (Propranolol Hcl 10 Mg Tablet) 10 mg PO BID [facility]; Protocol Last Admin: 08/07/23 20:13 Dose: Not Given Trazodone HCl (Trazodone Hcl 50 Mg Tablet) 50 mg PO BEDTIME MRX1 PRN PRN Reason: Insomnia Ziprasidone (Ziprasidone 80 Mg Capsule) 80 mg PO DAILY [facility] Last Admin: 08/07/23 09:05 Dose: Not Given Ziprasidone (Ziprasidone 60 Mg Capsule) 60 mg PO DAILY@1700 [facility] Last Admin: 08/07/23 17:49 Dose: Not Given Allergies Allergies Allergy/AdvReac Type Severity Reaction Status Date / Time clotrimazole Allergy Severe Rash Verified 09/23/22 02:18 Assessment & Plan Assessment & Plan (1) Schizoaffective disorder: Status: Acute Code(s): F25.9 - Schizoaffective disorder, unspecified Plan Patient is a 27 year old female (they/them) with hx of Schizoaffective d/o who [place] [facility], delusions throughout the day which resulted in them calling the police to report a bomb threat on their old apartment building secondary to medication non-compliance. Plan: CV 15 minute safety checks Continue home medications Obtain collateral Discuss starting on mood stabilizer 08/01: Pt presents disorganized with thought blocking. Observed responding to internal stimuli, keeping to self. Pt stated, I'm struggling but whatever. There are too many threats in my life right now and it's making me confused. I'm worried about a lot of people. I'm struggling to explain . Patient reports she believes she has been wire tapped by the news . med compliant. Increased: Geodon to 60mg PO BID 08/02: Pt presents disorganized with thought blocking; conversation is more fluid today after receiving Haldol 5mg PO once and Ativan 1mg PO once yesterday. Observed responding to internal stimuli, keeping to self. Patient denies AH and stated, I usually talk to myself. I'm making a lot of social mistakes here . Patient stated, I'm feeling stressed out. I don't know how to explain it . Patient reports visual hallucinations of a bunch of stuff but could not elaborate. Denies SI/HI. Given another one time dose of Haldol 5mg PO and Ativan 1mg PO. Continue current tx plan. 08/03: no current changes 08/04: no changes 08/05: Increased Geodon to 60mg PO BID. Patient presents alert and oriented today. She is able to state the name of the hospital, the correct month, year, president. However she does present with delusions stating, the last hospital I was at put snakes inside of me and I need to get them removed. I don't need to be on the psychiatric side; I need to be on the medical side of the hospital . Patient reports having visual hallucinations that are distracting but they are not negatively effecting my ability to function . Patient keeping to self, isolative to room. Patient will stop mid-sentence and become distracted by visual hallucinations; she did not elaborate on what they were. Patient reports she would be accepting with an increase in her Geodon and gave verbal permission for T/W to speak with her father. Patient encouraged to consider a JEFF; pt reports other providers have also brought up this topic and would like to consider this option. denies SI/HI/AH 08/06: Patient keeping to self, isolative to room. Presents with thought blocking, not eating unless prompted by staff. Refused medications despite staff encouragement. Observed responding to internal stimuli. Pt continues to believe there is a snake in her body that was placed by last hospitalization. Continue current tx plan. Consider filing Section 7&8 if pt does not improve d/t safety concerns. 08/08: Patient met with [facility] child welfare caseworker and T/W today. Presents with thought blocking, paranoia, delusional. Believes we are trying to poison her with medications; believes people are spreading rumors about her. Unable to focus on conversation d/t perceptual disturbances. Observed looking around the room, talking to self, pt's name must be called multiple times before responding and stating what? I didn't hear you . She reports she would like to go to a snf after being discharged from hospital. We discussed benefits of JEFF; T/W informed her that her father also mentioned that he would prefer patient to receive JEFF. Pt then shouted, My father would never say that! Someone is impersonating him! . Continues to believe there was a snake placed inside of her body by last hospital. Not eating unless prompted by staff. Refused medications despite staff encouragement. Will file on patient tomorrow if continues with medication noncompliance. Patient educated on: diagnosis and medication risk/benefits Informed Consent: understands and further education needed Reason for continued inpatient stay Substantial Risk for: med/psych decompensation Time Spent With Patient Time: Total time managing care of this patient today _60___ minutes.
[2023-08-08 09:39] VITALS: BP 137/76; PULSE 94; RESP 20; TEMP 36.3; O2SAT 96
[2023-08-08 20:24] VITALS: BP 130/85; PULSE 96; RESP 18; TEMP 36.4; O2SAT 95
[2023-08-09 06:00] VITALS: BP 120/68; PULSE 87; RESP 16; TEMP 36.2; O2SAT 96
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
[2023-08-09] MEDS: Propranolol HCL 10 MG TABLET PO (09:19)
[2023-08-09] MEDS: NaPROXEN 500 MG TABLET PO (09:20)
[2023-08-09] MEDS: Ziprasidone 80 MG CAPSULE PO ×2 (10:20→18:11)
[2023-08-09 21:00] VITALS: BP 118/65; PULSE 91; TEMP 36.3; O2SAT 93
[2023-08-10 06:00] VITALS: BP 151/74; PULSE 83; RESP 16; TEMP 36.7; O2SAT 97
[2023-08-10] MEDS: Ziprasidone 80 MG CAPSULE PO ×2 (09:02→18:16)
[2023-08-10 09:04] LABS: Glucose, Whole Blood 113 mg/dL (60-115)
[2023-08-10] MEDS: Propranolol HCL 10 MG TABLET PO (09:06)
[2023-08-10 20:34] VITALS: BP 142/78; PULSE 82; TEMP 36.8; O2SAT 95
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
[2023-08-11 08:00] VITALS: BP 137/63; PULSE 64; RESP 16; TEMP 36.5; O2SAT 96
[2023-08-11] MEDS: Propranolol HCL 10 MG TABLET PO ×2 (09:10→20:23)
[2023-08-11] MEDS: Ziprasidone 80 MG CAPSULE PO ×2 (09:10→18:18)
[2023-08-11 09:13] LABS: Creatinine Clr Calc Pharmacy 110.7; Estimated Glomerular Filt Rate > 60
[2023-08-11 20:10] VITALS: BP 146/92; PULSE 96; RESP 16; TEMP 36.7; O2SAT 98
[2023-08-11] MEDS: metFORMIN HCl 1,000 MG TABLET 1000 MG PO (20:23)
--- NOTE | 2023-08-11 23:15 | P.PNPSI_ITS ---
Subjective Subjective Date of Service: 08/11/23 Reason For Visit: pt exp delusions, pt denies si/hi, per ems Subjective Notes: Conditional Voluntary Guardianship: No Interim History: Patient seen in psychiatric follow-up case reviewed with nursing staff patient seen. The patient has been excepting Geodon 80 mg twice a day quite preoccupied with multiple florid paranoid delusions. Feels like her stool is radioactive and she be placed in a special D contamination, that she was poisoned and otherwise injured at her last recent hospitalization and multiple other intrusive paranoid concerns. Refusing her metformin, antihypertensive has she feels these are not really medication being given to her. Patient out of her room somewhat more remains severely paranoid and anxious Medication Compliance: No (Not excepting treatment for medical condition) Side effects from medications: No Review of Systems Acute medical concerns: No Patient with multiple bizarre somatic delusions Mental Status Exam Mental Status Exam Narrative: Patient is alert remains with thought blocking mood somewhat less anxious multiple paranoid delusions regarding being poisoned contaminated by radiation that she has somehow been bilaterally altered in different settings logical tracking planning form of thought has been accepting medication after much in current treatment as long was stamped with numbers that she excepted impulse control intact no SI had had prior thoughts of harm that she feels guilty about difficulty elaborating somewhat guarded insight markedly limited Diagnostics Vital Signs (24Hr): Vital Signs - 24 hr 08/11/23 08:00 08/11/23 20:10 Temperature 97.7 F 98.0 F Pulse Rate 64 96 Respiratory Rate 16 16 Blood Pressure 137/63 146/92 H Pulse Oximetry 96 98 Oxygen Delivery Method Room Air Room Air BMI result Body Mass Index 39.0 Labs 07/28/23 22:30 08/11/23 08:48 Labs: Laboratory Results - last 48 hr 08/10/23 08/11/23 08:59 08:48 Creatinine 0.79 Estim Creat Clear Calc 110.7 Estimated GFR > 60 POC Glucose 113 Medications Medications Current Medications Acetaminophen (Acetaminophen 325 Mg Tablet) 650 mg PO Q6H PRN PRN Reason: Headache/Pain Mild Scale (1-3) Al Hydroxide/Mg Hydroxide (Magnesium Hydrox/Alum Hydrox 30 Ml Oral.Susp) 30 ml PO Q6H PRN PRN Reason: Heartburn/Nausea Albuterol Sulfate (Albuterol Sulfate 90 Mcg 8 Gm Inhaler) 2 puff INHALE RQ4H PRN PRN Reason: short of breath Clonidine HCl (Clonidine Hcl 0.1 Mg Tablet) 0.1 mg PO BID PRN; Protocol PRN Reason: Anxiety Last Admin: 08/01/23 22:12 Dose: 0.1 mg Hydroxyzine HCl (Hydroxyzine Hcl 25 Mg Tablet) 25 mg PO Q6H PRN PRN Reason: Anxiety Last Admin: 07/31/23 17:01 Dose: 25 mg Lisinopril (Lisinopril 2.5 Mg Tablet) 2.5 mg PO DAILY [facility]; Protocol Last Admin: 08/11/23 09:12 Dose: Not Given Magnesium Hydroxide (Milk Of Magnesia 30 Ml Oral.Susp) 30 ml PO DAILY PRN PRN Reason: Constipation Metformin HCl (Metformin Hcl 1,000 Mg Tablet) 1,000 mg PO BID [facility] Last Admin: 08/11/23 20:23 Dose: 1,000 mg Olanzapine (Olanzapine 5 Mg Tablet) 5 mg PO TID PRN PRN Reason: agitation Propranolol HCl (Propranolol Hcl 10 Mg Tablet) 10 mg PO BID [facility]; Protocol Last Admin: 08/11/23 20:23 Dose: 10 mg Trazodone HCl (Trazodone Hcl 50 Mg Tablet) 50 mg PO BEDTIME MRX1 PRN PRN Reason: Insomnia Ziprasidone (Ziprasidone 80 Mg Capsule) 80 mg PO DAILY [facility] Last Admin: 08/11/23 09:10 Dose: 80 mg Ziprasidone (Ziprasidone 80 Mg Capsule) 80 mg PO DAILY@1700 [facility] Last Admin: 08/11/23 18:18 Dose: 80 mg Allergies Allergies Allergy/AdvReac Type Severity Reaction Status Date / Time clotrimazole Allergy Severe Rash Verified 09/23/22 02:18 Assessment & Plan Assessment & Plan (1) Schizoaffective disorder: Status: Acute Code(s): F25.9 - Schizoaffective disorder, unspecified Plan Patient is a 27 year old female (they/them) with hx of Schizoaffective d/o who presented to [facility] with paranoia, delusions throughout the day which resulted in them calling the police to report a bomb threat on their old apartment building secondary to medication non-compliance. Plan: CV 15 minute safety checks Continue home medications Obtain collateral Discuss starting on mood stabilizer 08/01: Pt presents disorganized with thought blocking. Observed responding to internal stimuli, keeping to self. Pt stated, I'm struggling but whatever. There are too many threats in my life right now and it's making me confused. I'm worried about a lot of people. I'm struggling to explain . Patient reports she believes she has been wire tapped by the news . med compliant. Increased: Geodon to 60mg PO BID 08/02: Pt presents disorganized with thought blocking; conversation is more fluid today after receiving Haldol 5mg PO once and Ativan 1mg PO once yesterday. Observed responding to internal stimuli, keeping to self. Patient denies AH and stated, I usually talk to myself. I'm making a lot of social mistakes here . Patient stated, I'm feeling stressed out. I don't know how to explain it . Patient reports visual hallucinations of a bunch of stuff but could not elaborate. Denies SI/HI. Given another one time dose of Haldol 5mg PO and Ativan 1mg PO. Continue current tx plan. 08/03: no current changes 08/04: no changes 08/05: Increased Geodon to 60mg PO BID. Patient presents alert and oriented today. She is able to state the name of the hospital, the correct month, year, president. However she does present with delusions stating, the last hospital I was at put snakes inside of me and I need to get them removed. I don't need to be on the psychiatric side; I need to be on the medical side of the hospital . Patient reports having visual hallucinations that are distracting but they are not negatively effecting my ability to function . Patient keeping to self, isolative to room. Patient will stop mid-sentence and become distracted by visual hallucinations; she did not elaborate on what they were. Patient reports she would be accepting with an increase in her Geodon and gave verbal permission for T/W to speak with her father. Patient encouraged to consider a JEFF; pt reports other providers have also brought up this topic and would like to consider this option. denies SI/HI/AH 08/06: Patient keeping to self, isolative to room. Presents with thought blocking, not eating unless prompted by staff. Refused medications despite staff encouragement. Observed responding to internal stimuli. Pt continues to believe there is a snake in her body that was placed by last hospitalization. Continue current tx plan. Consider filing Section 7&8 if pt does not improve d/t safety concerns. 08/08: Patient met with [facility] case management associate and T/W today. Presents with thought blocking, paranoia, delusional. Believes we are trying to poison her with medications; believes people are spreading rumors about her. Unable to focus on conversation d/t perceptual disturbances. Observed looking around the room, talking to self, pt's name must be called multiple times before responding and stating what? I didn't hear you . She reports she would like to go to a alf after being discharged from hospital. We discussed benefits of JEFF; T/W informed her that her father also mentioned that he would prefer patient to receive JEFF. Pt then shouted, My father would never say that! Someone is impersonating him! . Continues to believe there was a snake placed inside of her body by last hospital. Not eating unless prompted by staff. Refused medications despite staff encouragement. Will file on patient tomorrow if continues with medication noncompliance. 08/09: Patient continues to present disorganized and delusional. pt stated, I'm worried about the people in my life.The first night I was here,someone was outside my window and threatening me and my family . Pt did take Geodon 80mg PO today d/t pharmacy being able to obtain pill that has 80 printed on it; previous pills had various numbers on pill, which made patient believe she was being givan a very high dosage. She continues to refuse some of her medications. Observed responding to internal stimuli. Will not file on patient d/t starting to take Geodon; pt reports she plans on continuing to be medication compliant. 08/10/2023 Continue plan of care encourage gradual increase 08/11/2023 Continue plan of care with [facility] would try to get patient to accept long-acting injectable would benefit from getting better idea of patient's treatment history is an outpatient has been difficult clarify with patient cannot give the names of outpatient providers or clear treatment history Reason for continued inpatient stay Substantial Risk for: inability to function and rapid decompensation Time Spent With Patient Time: Total time managing care of this patient today ____ minutes.
[2023-08-12 08:29] VITALS: BP 142/81; PULSE 75; RESP 16; TEMP 36.6; O2SAT 95
[2023-08-12] MEDS: Ziprasidone 80 MG CAPSULE PO ×2 (09:06→18:48)
[2023-08-12] MEDS: Propranolol HCL 10 MG TABLET PO (09:06)
--- NOTE | 2023-08-12 14:11 | HO.PSYCHPN ---
Documented by User: Gayatri Mcclendon NP 08/12/23 14:27 Subjective Subjective Date of Service: 08/12/23 Reason For Visit: pt exp delusions, pt denies si/hi, per ems Subjective Notes: Conditional Voluntary Interim History: Reviewed with . Patient continues to present delusional and paranoid. Pt stated, I have stuff going on that's weird and I don't know what's behind it. Your coworker Adrienne is involved with something being outside my window, threatening me and my family. I don't trust the or police. Also someone was trying to make a horror movie of me at the last hospital while using the cameras . T/W reviewed medications with pt's request; pt stated, I don't need an antipsychotics. You were trying to give me really high dosages of Geodon, like 200 something but now it's correct . T/W explained her dosage was correct,and the manufacture writes numbers on some medications; pt continued to accuse T/W of giving her incorrect dosage. Observed responding to internal stimuli. Medication Compliance: Intermittent Side effects from medications: No Attending Groups: Intermittent Review of Systems Constitutional: Reports as per HPI Eyes: Reports as per HPI Reports as per HPI Cardiovascular: Reports as per HPI Respiratory: Reports as per HPI Gastrointestinal: Reports as per HPI Genitourinary: Reports as per HPI Musculoskeletal: Reports as per HPI Skin/Breast: Reports as per HPI Reports as per HPI Psychiatric: Reports as per HPI Endocrine: Reports as per HPI Hematologic/Lymphatic: Reports as per HPI Allergic/Immunologic: Reports as per HPI Mental Status Exam Mental Status Exam Narrative: Pt is alert and oriented; behavior is guarded and calm; dressed in casual attire with unkempt hair; mood is described as anxious ; eye contact appropriate; Speech is normal rate; thought blocking at times; Thought content is delusional, paranoid; denies SI/HI. observed responding to internal stimuli. Diagnostics Vital Signs (24Hr): Vital Signs - 24 hr 08/11/23 20:10 08/12/23 08:29 Temperature 98.0 F 97.8 F Pulse Rate 96 75 Respiratory Rate 16 16 Blood Pressure 146/92 H 142/81 H Pulse Oximetry 98 95 Oxygen Delivery Method Room Air Room Air BMI result Body Mass Index 39.0 Labs 07/28/23 22:30 08/11/23 08:48 Labs: Laboratory Results - last 48 hr 08/11/23 08:48 Creatinine 0.79 Estim Creat Clear Calc 110.7 Estimated GFR > 60 Medications Medications Current Medications Acetaminophen (Acetaminophen 325 Mg Tablet) 650 mg PO Q6H PRN PRN Reason: Headache/Pain Mild Scale (1-3) Al Hydroxide/Mg Hydroxide (Magnesium Hydrox/Alum Hydrox 30 Ml Oral.Susp) 30 ml PO Q6H PRN PRN Reason: Heartburn/Nausea Albuterol Sulfate (Albuterol Sulfate 90 Mcg 8 Gm Inhaler) 2 puff INHALE RQ4H PRN PRN Reason: short of breath Clonidine HCl (Clonidine Hcl 0.1 Mg Tablet) 0.1 mg PO BID PRN; Protocol PRN Reason: Anxiety Last Admin: 08/01/23 22:12 Dose: 0.1 mg Hydroxyzine HCl (Hydroxyzine Hcl 25 Mg Tablet) 25 mg PO Q6H PRN PRN Reason: Anxiety Last Admin: 07/31/23 17:01 Dose: 25 mg Lisinopril (Lisinopril 2.5 Mg Tablet) 2.5 mg PO DAILY [facility]; Protocol Last Admin: 08/12/23 11:25 Dose: Not Given Magnesium Hydroxide (Milk Of Magnesia 30 Ml Oral.Susp) 30 ml PO DAILY PRN PRN Reason: Constipation Metformin HCl (Metformin Hcl 1,000 Mg Tablet) 1,000 mg PO BID [facility] Last Admin: 08/12/23 11:26 Dose: Not Given Olanzapine (Olanzapine 5 Mg Tablet) 5 mg PO TID PRN PRN Reason: agitation Propranolol HCl (Propranolol Hcl 10 Mg Tablet) 10 mg PO BID [facility]; Protocol Last Admin: 08/12/23 09:06 Dose: 10 mg Trazodone HCl (Trazodone Hcl 50 Mg Tablet) 50 mg PO BEDTIME MRX1 PRN PRN Reason: Insomnia Ziprasidone (Ziprasidone 80 Mg Capsule) 80 mg PO DAILY [facility] Last Admin: 08/12/23 09:06 Dose: 80 mg Ziprasidone (Ziprasidone 80 Mg Capsule) 80 mg PO DAILY@1700 [facility] Last Admin: 08/11/23 18:18 Dose: 80 mg Allergies Allergies Allergy/AdvReac Type Severity Reaction Status Date / Time clotrimazole Allergy Severe Rash Verified 09/23/22 02:18 Assessment & Plan Assessment & Plan (1) Schizoaffective disorder: Status: Acute Code(s): F25.9 - Schizoaffective disorder, unspecified Plan Patient is a 27 year old female (they/them) with hx of Schizoaffective d/o who presented to [facility] [facility] with paranoia, delusions throughout the day which resulted in them calling the police to report a bomb threat on their old apartment building secondary to medication non-compliance. Plan: CV 15 minute safety checks Continue home medications Obtain collateral Discuss starting on mood stabilizer 08/01: Pt presents disorganized with thought blocking. Observed responding to internal stimuli, keeping to self. Pt stated, I'm struggling but whatever. There are too many threats in my life right now and it's making me confused. I'm worried about a lot of people. I'm struggling to explain . Patient reports she believes she has been wire tapped by the news . med compliant. Increased: Geodon to 60mg PO BID 08/02: Pt presents disorganized with thought blocking; conversation is more fluid today after receiving Haldol 5mg PO once and Ativan 1mg PO once yesterday. Observed responding to internal stimuli, keeping to self. Patient denies AH and stated, I usually talk to myself. I'm making a lot of social mistakes here . Patient stated, I'm feeling stressed out. I don't know how to explain it . Patient reports visual hallucinations of a bunch of stuff but could not elaborate. Denies SI/HI. Given another one time dose of Haldol 5mg PO and Ativan 1mg PO. Continue current tx plan. 08/03: no current changes 08/04: no changes 08/05: Increased Geodon to 60mg PO BID. Patient presents alert and oriented today. She is able to state the name of the hospital, the correct month, year, president. However she does present with delusions stating, the last hospital I was at put snakes inside of me and I need to get them removed. I don't need to be on the psychiatric side; I need to be on the medical side of the hospital . Patient reports having visual hallucinations that are distracting but they are not negatively effecting my ability to function . Patient keeping to self, isolative to room. Patient will stop mid-sentence and become distracted by visual hallucinations; she did not elaborate on what they were. Patient reports she would be accepting with an increase in her Geodon and gave verbal permission for T/W to speak with her father. Patient encouraged to consider a JEFF; pt reports other providers have also brought up this topic and would like to consider this option. denies SI/HI/AH 08/06: Patient keeping to self, isolative to room. Presents with thought blocking, not eating unless prompted by staff. Refused medications despite staff encouragement. Observed responding to internal stimuli. Pt continues to believe there is a snake in her body that was placed by last hospitalization. Continue current tx plan. Consider filing Section 7&8 if pt does not improve d/t safety concerns. 08/08: Patient met with [facility] trimming caser and T/W today. Presents with thought blocking, paranoia, delusional. Believes we are trying to poison her with medications; believes people are spreading rumors about her. Unable to focus on conversation d/t perceptual disturbances. Observed looking around the room, talking to self, pt's name must be called multiple times before responding and stating what? I didn't hear you . She reports she would like to go to a intermediate after being discharged from hospital. We discussed benefits of JEFF; T/W informed her that her father also mentioned that he would prefer patient to receive JEFF. Pt then shouted, My father would never say that! Someone is impersonating him! . Continues to believe there was a snake placed inside of her body by last hospital. Not eating unless prompted by staff. Refused medications despite staff encouragement. Will file on patient tomorrow if continues with medication noncompliance. 08/09: Patient continues to present disorganized and delusional. pt stated, I'm worried about the people in my life.The first night I was here,someone was outside my window and threatening me and my family . Pt did take Geodon 80mg PO today d/t pharmacy being able to obtain pill that has 80 printed on it; previous pills had various numbers on pill, which made patient believe she was being givan a very high dosage. She continues to refuse some of her medications. Observed responding to internal stimuli. Will not file on patient d/t starting to take Geodon; pt reports she plans on continuing to be medication compliant. 08/10: Continue plan of care encourage gradual increase. 08/12: Patient continues to present delusional and paranoid. Pt stated, I have stuff going on that's weird and I don't know what's behind it. Your coworker Adrienne is involved with something being outside my window, threatening me and my family. I don't trust the or police. Also someone was trying to make a horror movie of me at the last hospital while using the cameras . T/W reviewed medications with pt's request; pt stated, I don't need an antipsychotics. You were trying to give me really high dosages of Geodon, like 200 something but now it's correct . T/W explained her dosage was correct,and the manufacture writes numbers on some medications; pt continued to accuse T/W of giving her incorrect dosage. Observed responding to internal stimuli. Patient educated on: diagnosis and medication risk/benefits Informed Consent: understands and further education needed Reason for continued inpatient stay Substantial Risk for: med/psych decompensation Time Spent With Patient Time: Total time managing care of this patient today _30___ minutes. Documented by User: Michael Gavin MD 08/12/23 21:26 Subjective Subjective Date of Service: 08/12/23 Reason For Visit: pt exp delusions, pt denies si/hi, per ems Guardianship: No Diagnostics Labs 07/28/23 22:30 08/11/23 08:48 Assessment & Plan Assessment & Plan (1) Schizoaffective disorder: Status: Acute Code(s): F25.9 - Schizoaffective disorder, unspecified
[2023-08-12 20:20] VITALS: BP 123/84; PULSE 90; RESP 18; TEMP 36.6; O2SAT 97
[2023-08-13 10:10] VITALS: BP 147/92; PULSE 87; RESP 16; TEMP 36.5; O2SAT 97
[2023-08-13] MEDS: Propranolol HCL 10 MG TABLET PO (10:10)
[2023-08-13] MEDS: metFORMIN HCl 1,000 MG TABLET 1000 MG PO (10:19)
--- NOTE | 2023-08-13 11:45 | HO.PSYCHPN ---
Subjective Subjective Date of Service: 08/13/23 Reason For Visit: pt exp delusions, pt denies si/hi, per ems Subjective Notes: Conditional Voluntary Interim History: Reviewed with . Patient continue to present delusional and paranoid. Refused her morning dose of Geodon. Pt reports she is worried that I have radiation poisoning and will get all of you sick . Patient believes she came to the hospital d/t [facility] being worried that I was going to get their employees in trouble for telling the police they were going to set off a bomb at my last apartment . Patient reports she spoke to her parents yesterday on the phone and feels upset since my parents are not taking the threats seriously and think I'm paranoid. I'm not paranoid! . Patient gives verbal consent to speak with her father but does not want us to speak with her mother. Pt perseverative about various safety concerns and threats. Medication Compliance: Intermittent Side effects from medications: No Attending Groups: Intermittent Review of Systems Review of Systems Constitutional: Reports as per HPI Eyes: Reports as per HPI Reports as per HPI Cardiovascular: Reports as per HPI Respiratory: Reports as per HPI Gastrointestinal: Reports as per HPI Genitourinary: Reports as per HPI Musculoskeletal: Reports as per HPI Skin/Breast: Reports as per HPI Reports as per HPI Psychiatric: Reports as per HPI Endocrine: Reports as per HPI Hematologic/Lymphatic: Reports as per HPI Allergic/Immunologic: Reports as per HPI Mental Status Exam Mental Status Exam Narrative: Pt is alert and oriented; behavior is guarded and calm; dressed in casual attire with unkempt hair; mood is described as anxious ; eye contact appropriate; Speech is normal rate; thought blocking at times; Thought content is delusional, paranoid; denies SI/HI. observed responding to internal stimuli. Diagnostics Vital Signs (24Hr): Vital Signs - 24 hr 08/12/23 20:20 08/13/23 10:10 Temperature 97.9 F 97.7 F Pulse Rate 90 87 Respiratory Rate 18 16 Blood Pressure 123/84 147/92 H Pulse Oximetry 97 97 Oxygen Delivery Method Room Air Room Air BMI result Body Mass Index 39.0 Labs 07/28/23 22:30 08/11/23 08:48 Medications Medications Current Medications Acetaminophen (Acetaminophen 325 Mg Tablet) 650 mg PO Q6H PRN PRN Reason: Headache/Pain Mild Scale (1-3) Al Hydroxide/Mg Hydroxide (Magnesium Hydrox/Alum Hydrox 30 Ml Oral.Susp) 30 ml PO Q6H PRN PRN Reason: Heartburn/Nausea Albuterol Sulfate (Albuterol Sulfate 90 Mcg 8 Gm Inhaler) 2 puff INHALE RQ4H PRN PRN Reason: short of breath Clonidine HCl (Clonidine Hcl 0.1 Mg Tablet) 0.1 mg PO BID PRN; Protocol PRN Reason: Anxiety Last Admin: 08/01/23 22:12 Dose: 0.1 mg Hydroxyzine HCl (Hydroxyzine Hcl 25 Mg Tablet) 25 mg PO Q6H PRN PRN Reason: Anxiety Last Admin: 07/31/23 17:01 Dose: 25 mg Lisinopril (Lisinopril 2.5 Mg Tablet) 2.5 mg PO DAILY [facility]; Protocol Last Admin: 08/13/23 10:24 Dose: Not Given Magnesium Hydroxide (Milk Of Magnesia 30 Ml Oral.Susp) 30 ml PO DAILY PRN PRN Reason: Constipation Metformin HCl (Metformin Hcl 1,000 Mg Tablet) 1,000 mg PO BID [facility] Last Admin: 08/13/23 10:19 Dose: 1,000 mg Olanzapine (Olanzapine 5 Mg Tablet) 5 mg PO TID PRN PRN Reason: agitation Propranolol HCl (Propranolol Hcl 10 Mg Tablet) 10 mg PO BID [facility]; Protocol Last Admin: 08/13/23 10:10 Dose: 10 mg Trazodone HCl (Trazodone Hcl 50 Mg Tablet) 50 mg PO BEDTIME MRX1 PRN PRN Reason: Insomnia Ziprasidone (Ziprasidone 80 Mg Capsule) 80 mg PO DAILY [facility] Last Admin: 08/12/23 09:06 Dose: 80 mg Ziprasidone (Ziprasidone 80 Mg Capsule) 80 mg PO DAILY@1700 [facility] Last Admin: 08/12/23 18:48 Dose: 80 mg Allergies Allergies Allergy/AdvReac Type Severity Reaction Status Date / Time clotrimazole Allergy Severe Rash Verified 09/23/22 02:18 Assessment & Plan Assessment & Plan (1) Schizoaffective disorder: Status: Acute Code(s): F25.9 - Schizoaffective disorder, unspecified Plan Patient is a 27 year old female (they/them) with hx of Schizoaffective d/o who presented to [facility] with paranoia, delusions throughout the day which resulted in them calling the police to report a bomb threat on their old apartment building secondary to medication non-compliance. Plan: CV 15 minute safety checks Continue home medications Obtain collateral Discuss starting on mood stabilizer 08/01: Pt presents disorganized with thought blocking. Observed responding to internal stimuli, keeping to self. Pt stated, I'm struggling but whatever. There are too many threats in my life right now and it's making me confused. I'm worried about a lot of people. I'm struggling to explain . Patient reports she believes she has been wire tapped by the news . med compliant. Increased: Geodon to 60mg PO BID 08/02: Pt presents disorganized with thought blocking; conversation is more fluid today after receiving Haldol 5mg PO once and Ativan 1mg PO once yesterday. Observed responding to internal stimuli, keeping to self. Patient denies AH and stated, I usually talk to myself. I'm making a lot of social mistakes here . Patient stated, I'm feeling stressed out. I don't know how to explain it . Patient reports visual hallucinations of a bunch of stuff but could not elaborate. Denies SI/HI. Given another one time dose of Haldol 5mg PO and Ativan 1mg PO. Continue current tx plan. 08/03: no current changes 08/04: no changes 08/05: Increased Geodon to 60mg PO BID. Patient presents alert and oriented today. She is able to state the name of the hospital, the correct month, year, president. However she does present with delusions stating, the last hospital I was at put snakes inside of me and I need to get them removed. I don't need to be on the psychiatric side; I need to be on the medical side of the hospital . Patient reports having visual hallucinations that are distracting but they are not negatively effecting my ability to function . Patient keeping to self, isolative to room. Patient will stop mid-sentence and become distracted by visual hallucinations; she did not elaborate on what they were. Patient reports she would be accepting with an increase in her Geodon and gave verbal permission for T/W to speak with her father. Patient encouraged to consider a JEFF; pt reports other providers have also brought up this topic and would like to consider this option. denies SI/HI/AH 08/06: Patient keeping to self, isolative to room. Presents with thought blocking, not eating unless prompted by staff. Refused medications despite staff encouragement. Observed responding to internal stimuli. Pt continues to believe there is a snake in her body that was placed by last hospitalization. Continue current tx plan. Consider filing Section 7&8 if pt does not improve d/t safety concerns. 08/08: Patient met with [facility] case resolution specialist and T/W today. Presents with thought blocking, paranoia, delusional. Believes we are trying to poison her with medications; believes people are spreading rumors about her. Unable to focus on conversation d/t perceptual disturbances. Observed looking around the room, talking to self, pt's name must be called multiple times before responding and stating what? I didn't hear you . She reports she would like to go to a halfway after being discharged from hospital. We discussed benefits of JEFF; T/W informed her that her father also mentioned that he would prefer patient to receive JEFF. Pt then shouted, My father would never say that! Someone is impersonating him! . Continues to believe there was a snake placed inside of her body by last hospital. Not eating unless prompted by staff. Refused medications despite staff encouragement. Will file on patient tomorrow if continues with medication noncompliance. 08/09: Patient continues to present disorganized and delusional. pt stated, I'm worried about the people in my life.The first night I was here,someone was outside my window and threatening me and my family . Pt did take Geodon 80mg PO today d/t pharmacy being able to obtain pill that has 80 printed on it; previous pills had various numbers on pill, which made patient believe she was being givan a very high dosage. She continues to refuse some of her medications. Observed responding to internal stimuli. Will not file on patient d/t starting to take Geodon; pt reports she plans on continuing to be medication compliant. 08/10:Continue plan of care encourage gradual increase 08/11: Continue plan of care with Geodon would try to get patient to accept long-acting injectable would benefit from getting better idea of patient's treatment history is an outpatient has been difficult clarify with patient cannot give the names of outpatient providers or clear treatment history. 08/12: Patient continues to present delusional and paranoid. Pt stated, I have stuff going on that's weird and I don't know what's behind it. Your coworker Adrienne is involved with something being outside my window, threatening me and my family. I don't trust the or police. Also someone was trying to make a horror movie of me at the last hospital while using the cameras . T/W reviewed medications with pt's request; pt stated, I don't need an antipsychotics. You were trying to give me really high dosages of Geodon, like 200 something but now it's correct . T/W explained her dosage was correct,and the manufacture writes numbers on some medications; pt continued to accuse T/W of giving her incorrect dosage. Observed responding to internal stimuli. 08/13: Patient continue to present delusional and paranoid. Refused her morning dose of Geodon. Pt reports she is worried that I have radiation poisoning and will get all of you sick . Patient believes she came to the hospital d/t [facility] being worried that I was going to get their employees in trouble for telling the police they were going to set off a bomb at my last apartment . Patient reports she spoke to her parents yesterday on the phone and feels upset since my parents are not taking the threats seriously and think I'm paranoid. I'm not paranoid! . Patient gives verbal consent to speak with her father but does not want us to speak with her mother. Pt perseverative about various safety concerns and threats. Will reach out to pts father for collateral. Patient educated on: diagnosis and medication risk/benefits Informed Consent: understands and further education needed Reason for continued inpatient stay Substantial Risk for: med/psych decompensation Time Spent With Patient Time: Total time managing care of this patient today _30___ minutes.
[2023-08-13 12:05] LABS: Glucose, Whole Blood 104 mg/dL (60-115)
[2023-08-13 21:36] VITALS: BP 140/79; PULSE 90; TEMP 36.4; O2SAT 96
[2023-08-14 07:21] VITALS: BP 184/107; PULSE 83; RESP 18; TEMP 36.8; O2SAT 99
[2023-08-14 09:30] VITALS: BP 157/89; PULSE 89; RESP 18; TEMP 36.5; O2SAT 97
--- NOTE | 2023-08-14 15:40 | HO.PSYCHPN ---
Subjective Subjective Date of Service: 08/14/23 Reason For Visit: pt exp delusions, pt denies si/hi, per ems Subjective Notes: Conditional Voluntary Interim History: Reviewed with . Pt presents delusional, paranoid, thought blocking. Observed pacing room, talking to self. Responding to internal stimuli. T/W would call patients name, pt would stop, stare at T/W not respond and continue to pace. Pt refused Geodon yesterday and today. Medication Compliance: Intermittent Side effects from medications: No Review of Systems Review of Systems Yes all other systems are reviewed and are negative Constitutional: Reports as per HPI Eyes: Reports as per HPI Reports as per HPI Cardiovascular: Reports as per HPI Respiratory: Reports as per HPI Gastrointestinal: Reports as per HPI Musculoskeletal: Reports as per HPI Skin/Breast: Reports as per HPI Reports as per HPI Psychiatric: Reports as per HPI Endocrine: Reports as per HPI Hematologic/Lymphatic: Reports as per HPI Allergic/Immunologic: Reports as per HPI Mental Status Exam Mental Status Exam Narrative: Pt is alert and oriented; behavior is guarded and calm; dressed in casual attire with unkempt hair; mood is described as anxious ; eye contact appropriate; Speech is normal rate; thought blocking; Thought content is delusional, paranoid; denies SI/HI. observed responding to internal stimuli. Diagnostics Vital Signs (24Hr): Vital Signs - 24 hr 08/13/23 21:36 08/14/23 07:21 Temperature 97.6 F 98.3 F Pulse Rate 90 83 Respiratory Rate 18 Blood Pressure 140/79 H 184/107 H Pulse Oximetry 96 99 Oxygen Delivery Method Room Air Room Air BMI result Body Mass Index 39.0 Labs 07/28/23 22:30 08/11/23 08:48 Labs: Laboratory Results - last 48 hr 08/13/23 11:59 POC Glucose 104 Medications Medications Current Medications Acetaminophen (Acetaminophen 325 Mg Tablet) 650 mg PO Q6H PRN PRN Reason: Headache/Pain Mild Scale (1-3) Al Hydroxide/Mg Hydroxide (Magnesium Hydrox/Alum Hydrox 30 Ml Oral.Susp) 30 ml PO Q6H PRN PRN Reason: Heartburn/Nausea Albuterol Sulfate (Albuterol Sulfate 90 Mcg 8 Gm Inhaler) 2 puff INHALE RQ4H PRN PRN Reason: short of breath Clonidine HCl (Clonidine Hcl 0.1 Mg Tablet) 0.1 mg PO BID PRN; Protocol PRN Reason: Anxiety Last Admin: 08/01/23 22:12 Dose: 0.1 mg Hydroxyzine HCl (Hydroxyzine Hcl 25 Mg Tablet) 25 mg PO Q6H PRN PRN Reason: Anxiety Last Admin: 07/31/23 17:01 Dose: 25 mg Lisinopril (Lisinopril 2.5 Mg Tablet) 2.5 mg PO DAILY [facility]; Protocol Last Admin: 08/14/23 11:13 Dose: Not Given Magnesium Hydroxide (Milk Of Magnesia 30 Ml Oral.Susp) 30 ml PO DAILY PRN PRN Reason: Constipation Metformin HCl (Metformin Hcl 1,000 Mg Tablet) 1,000 mg PO BID [facility] Last Admin: 08/14/23 11:13 Dose: Not Given Olanzapine (Olanzapine 5 Mg Tablet) 5 mg PO TID PRN PRN Reason: agitation Propranolol HCl (Propranolol Hcl 10 Mg Tablet) 10 mg PO BID [facility]; Protocol Last Admin: 08/14/23 11:13 Dose: Not Given Trazodone HCl (Trazodone Hcl 50 Mg Tablet) 50 mg PO BEDTIME MRX1 PRN PRN Reason: Insomnia Ziprasidone (Ziprasidone 80 Mg Capsule) 80 mg PO DAILY [facility] Last Admin: 08/14/23 11:13 Dose: Not Given Ziprasidone (Ziprasidone 80 Mg Capsule) 80 mg PO DAILY@1700 [facility] Last Admin: 08/13/23 18:51 Dose: Not Given Allergies Allergies Allergy/AdvReac Type Severity Reaction Status Date / Time clotrimazole Allergy Severe Rash Verified 09/23/22 02:18 Assessment & Plan Assessment & Plan (1) Schizoaffective disorder: Status: Acute Code(s): F25.9 - Schizoaffective disorder, unspecified Plan Patient is a 27 year old female (they/them) with hx of Schizoaffective d/o who presented to [facility] with paranoia, delusions throughout the day which resulted in them calling the police to report a bomb threat on their old apartment building secondary to medication non-compliance. Plan: CV 15 minute safety checks Continue home medications Obtain collateral Discuss starting on mood stabilizer 08/01: Pt presents disorganized with thought blocking. Observed responding to internal stimuli, keeping to self. Pt stated, I'm struggling but whatever. There are too many threats in my life right now and it's making me confused. I'm worried about a lot of people. I'm struggling to explain . Patient reports she believes she has been wire tapped by the news . med compliant. Increased: Geodon to 60mg PO BID 08/02: Pt presents disorganized with thought blocking; conversation is more fluid today after receiving Haldol 5mg PO once and Ativan 1mg PO once yesterday. Observed responding to internal stimuli, keeping to self. Patient denies AH and stated, I usually talk to myself. I'm making a lot of social mistakes here . Patient stated, I'm feeling stressed out. I don't know how to explain it . Patient reports visual hallucinations of a bunch of stuff but could not elaborate. Denies SI/HI. Given another one time dose of Haldol 5mg PO and Ativan 1mg PO. Continue current tx plan. 08/03: no current changes 08/04: no changes 08/05: Increased Geodon to 60mg PO BID. Patient presents alert and oriented today. She is able to state the name of the hospital, the correct month, year, president. However she does present with delusions stating, the last hospital I was at put snakes inside of me and I need to get them removed. I don't need to be on the psychiatric side; I need to be on the medical side of the hospital . Patient reports having visual hallucinations that are distracting but they are not negatively effecting my ability to function . Patient keeping to self, isolative to room. Patient will stop mid-sentence and become distracted by visual hallucinations; she did not elaborate on what they were. Patient reports she would be accepting with an increase in her Geodon and gave verbal permission for T/W to speak with her father. Patient encouraged to consider a JEFF; pt reports other providers have also brought up this topic and would like to consider this option. denies SI/HI/AH 08/06: Patient keeping to self, isolative to room. Presents with thought blocking, not eating unless prompted by staff. Refused medications despite staff encouragement. Observed responding to internal stimuli. Pt continues to believe there is a snake in her body that was placed by last hospitalization. Continue current tx plan. Consider filing Section 7&8 if pt does not improve d/t safety concerns. 08/08: Patient met with [facility] case checker and T/W today. Presents with thought blocking, paranoia, delusional. Believes we are trying to poison her with medications; believes people are spreading rumors about her. Unable to focus on conversation d/t perceptual disturbances. Observed looking around the room, talking to self, pt's name must be called multiple times before responding and stating what? I didn't hear you . She reports she would like to go to a detention after being discharged from hospital. We discussed benefits of JEFF; T/W informed her that her father also mentioned that he would prefer patient to receive JEFF. Pt then shouted, My father would never say that! Someone is impersonating him! . Continues to believe there was a snake placed inside of her body by last hospital. Not eating unless prompted by staff. Refused medications despite staff encouragement. Will file on patient tomorrow if continues with medication noncompliance. 08/09: Patient continues to present disorganized and delusional. pt stated, I'm worried about the people in my life.The first night I was here,someone was outside my window and threatening me and my family . Pt did take Geodon 80mg PO today d/t pharmacy being able to obtain pill that has 80 printed on it; previous pills had various numbers on pill, which made patient believe she was being givan a very high dosage. She continues to refuse some of her medications. Observed responding to internal stimuli. Will not file on patient d/t starting to take Geodon; pt reports she plans on continuing to be medication compliant. 08/10:Continue plan of care encourage gradual increase 08/11: Continue plan of care with Geodon would try to get patient to accept long-acting injectable would benefit from getting better idea of patient's treatment history is an outpatient has been difficult clarify with patient cannot give the names of outpatient providers or clear treatment history. 08/12: Patient continues to present delusional and paranoid. Pt stated, I have stuff going on that's weird and I don't know what's behind it. Your coworker Adrienne is involved with something being outside my window, threatening me and my family. I don't trust the or police. Also someone was trying to make a horror movie of me at the last hospital while using the cameras . T/W reviewed medications with pt's request; pt stated, I don't need an antipsychotics. You were trying to give me really high dosages of Geodon, like 200 something but now it's correct . T/W explained her dosage was correct,and the manufacture writes numbers on some medications; pt continued to accuse T/W of giving her incorrect dosage. Observed responding to internal stimuli. 08/13: Patient continue to present delusional and paranoid. Refused her morning dose of Geodon. Pt reports she is worried that I have radiation poisoning and will get all of you sick . Patient believes she came to the hospital d[facility]t [facility] being worried that I was going to get their employees in trouble for telling the police they were going to set off a bomb at my last apartment . Patient reports she spoke to her parents yesterday on the phone and feels upset since my parents are not taking the threats seriously and think I'm paranoid. I'm not paranoid! . Patient gives verbal consent to speak with her father but does not want us to speak with her mother. Pt perseverative about various safety concerns and threats. Will reach out to pts father for collateral. 08/14: Pt presents delusional, paranoid, thought blocking. Observed pacing room, talking to self. Responding to internal stimuli. T/W would call patients name, pt would stop, stare at T/W not respond and continue to pace. Pt refused Geodon yesterday and today. to call father today for collateral. Patient educated on: medication risk/benefits Informed Consent: understands Reason for continued inpatient stay Substantial Risk for: inability to function and med/psych decompensation Time Spent With Patient Time: Total time managing care of this patient today _30___ minutes.
[2023-08-14 19:35] VITALS: BP 180/83; PULSE 87; RESP 18; TEMP 37.1; O2SAT 98
[2023-08-15 07:33] VITALS: BP 127/77; PULSE 79; RESP 14; TEMP 36.7; O2SAT 99
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
[2023-08-15 20:12] VITALS: BP 146/65; PULSE 101; RESP 18; TEMP 37.2; O2SAT 97
[2023-08-16 08:05] VITALS: BP 181/102; PULSE 93; TEMP 36.4; O2SAT 98
[2023-08-16 09:00] LABS: MANUAL DIFF FLAG NO
[2023-08-16 09:08] LABS: Basophils Percent Auto 0.3 % (0-2); Eosinophils Absolute Auto 0.1 X10*3/uL (0.0-0.4); Eosinophils Percent Auto 0.9 % (0-4); Hematocrit 37.5 % (37.0-47.0); Hemoglobin 12.6 g/dl (12.0-16.0); Imm Gran Abs Auto 0.04 X10*3/uL (0.00-0.03); Imm Gran Pct Auto 0.4 % (0.0-0.4); Lymphocytes Absolute Auto 2.3 X10*3/uL (1.2-4.9); Lymphocytes Percent Auto 20.8 % (20-40); Mean Corpuscular HGB Conc 33.6 g/dl (31.0-35.0); Mean Corpuscular Hemoglobin 28.1 pg (27.0-33.0); Mean Corpuscular Volume 83.5 fL (80.0-98.0); Mean Platelet Volume 10.6 fL (9.4-12.3); Monocytes Absolute Auto 1.1 X10*3/uL (0.1-1.2); Monocytes Percent Auto 9.6 % (2-11); Neutrophils Absolute Auto 7.7 x10*3/uL (2.0-8.3); Platelet Count 285 X10*3/uL (160-400); Red Blood Count 4.49 X10*6/uL (4.20-5.50); Red Cell Distribution Width 14.5 % (11.0-16.0); White Blood Count 11.3 X10*3/uL (4.8-10.8)
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
[2023-08-16 09:31] LABS: Alanine Aminotransferase 72 U/L (0-31); Albumin Level 3.9 g/dL (3.5-5.0); Alkaline Phosphatase 39 U/L (39-117); Anion Gap 17 (12-20); Aspartate Amino Transferase 40 U/L (5-31); Bilirubin Total 0.4 mg/dL (0.0-1.0); Blood Urea Nitrogen 11 mg/dL (9-16); Calcium 9.2 mg/dL (8.4-10.2); Carbon Dioxide 22 mmol/L (22-29); Chloride 105 mmol/L (96-108); Creatinine Clr Calc Pharmacy 121.4; Estimated Glomerular Filt Rate > 60; Glucose Fasting 120 mg/dL (60-99); Potassium 3.8 mmol/L (3.3-5.1); Sodium 140 mmol/L (135-145)
[2023-08-16] MEDS: Propranolol HCL 10 MG TABLET PO (20:02)
[2023-08-16 20:08] VITALS: BP 130/84; PULSE 94; RESP 18; TEMP 36.6; O2SAT 99
[2023-08-17 08:15] VITALS: BP 142/59; PULSE 81; RESP 16; TEMP 36.6; O2SAT 98
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
[2023-08-17 20:05] VITALS: BP 172/93; PULSE 77; RESP 18; TEMP 36.4; O2SAT 98
[2023-08-17] MEDS: Magnesium Hydrox/Alum Hydrox 30 ML ORAL.SUSP PO (20:30)
--- NOTE | 2023-08-17 21:09 | PC.NURSE ---
Sally was calm and quiet when this chief underwriter approached her. When I asked about taking her medications she started retching an order was obtained for Zofran however the patient refused to take it r/t the web document pulled up to explain the medication it listed nausea caused by chemotherapy and radiation. the patient refused her metformin stating your just going to give me some other medication and call it metformin. Her blood pressure is noted to be 171/95, recheck 172/93. the patient was not actively retching until this chief underwriter asked her about taking her propranolol. she is noted as not taking her lisinopril for the past 2 mornings. patient would not answer this chief underwriter when asked if she will take her propranolol and then started retching again. MD made aware. will continue to encourage the patient to take her HS medications
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
[2023-08-18 08:30] VITALS: BP 138/68; PULSE 78; RESP 16; TEMP 36.6; O2SAT 96
[2023-08-18 08:53] LABS: Creatinine Clr Calc Pharmacy 124.9; Estimated Glomerular Filt Rate > 60
[2023-08-18 21:25] VITALS: BP 155/81; PULSE 99; TEMP 36.2; O2SAT 99
[2023-08-19 07:10] VITALS: BP 143/71; PULSE 96; TEMP 36.3; O2SAT 100
--- NOTE | 2023-08-19 09:14 | HO.PSYCHPN ---
Documented by User: Vikki Calixto 08/19/23 19:06 Subjective Subjective Reason For Visit: pt exp delusions, pt denies si/hi, per ems Interim History: Pt continues to perseverate on my medical issues but unable to articulate symptoms when directly asked. Pt reassured that her labs show no signs of infection, despite her insistence that she has an infection. Pt reassured that she is not contagious because no one else is sick on the unit. Pt paused while walking past the day room and asked, is anyone sick? When no other pt's or staff responded, she stated oh, I'm so relieved . Education provided on her consistently high blood pressures, today was 145/75 and as high as 180s/100s last week, and recommendation to take scheduled lisinopril and propranolol. Education provided on need to treat measurable physical signs and symptoms, such as high blood pressure, first before a more extensive physical work-up, as she has requested. Pt appeared to be responding to internal stimuli at times, asking TW to repeat questions or information given multiple times. With encouragement, pt agreed to take lisinopril and propranolol crushed in in orange sherbet. When attempt was made to have her take pills whole, she began to gag at the sight of the pills. Pt continued to decline scheduled Geodon, stating someone switched the pills and its not really Geodon its something else, so I won't take them here . Pt denied current SI/HI. Per nursing, pt mostly in her room. She was informed of decision of team to revoke CV due to her getting worse as she declines antipsychotics. Her hygiene has worsen. Her oral intake is also limited due to paranoia. Diagnostics Vital Signs (24Hr): Vital Signs - 24 hr 08/18/23 21:25 08/19/23 07:10 Temperature 97.2 F 97.4 F Pulse Rate 99 96 Blood Pressure 155/81 H 143/71 H Pulse Oximetry 99 100 Oxygen Delivery Method Room Air Room Air BMI result Body Mass Index 39.0 Labs 08/16/23 08:46 08/18/23 08:19 Labs: Laboratory Results - last 48 hr 08/18/23 08:19 Creatinine 0.70 Estim Creat Clear Calc 124.9 Estimated GFR > 60 Medications Medications Current Medications Acetaminophen (Acetaminophen 325 Mg Tablet) 650 mg PO Q6H PRN PRN Reason: Headache/Pain Mild Scale (1-3) Al Hydroxide/Mg Hydroxide (Magnesium Hydrox/Alum Hydrox 30 Ml Oral.Susp) 30 ml PO Q6H PRN PRN Reason: Heartburn/Nausea Last Admin: 08/17/23 20:30 Dose: 30 ml Albuterol Sulfate (Albuterol Sulfate 90 Mcg 8 Gm Inhaler) 2 puff INHALE RQ4H PRN PRN Reason: short of breath Clonidine HCl (Clonidine Hcl 0.1 Mg Tablet) 0.1 mg PO BID PRN; Protocol PRN Reason: Anxiety Last Admin: 08/01/23 22:12 Dose: 0.1 mg Hydroxyzine HCl (Hydroxyzine Hcl 25 Mg Tablet) 25 mg PO Q6H PRN PRN Reason: Anxiety Last Admin: 07/31/23 17:01 Dose: 25 mg Lisinopril (Lisinopril 2.5 Mg Tablet) 2.5 mg PO DAILY [facility]; Protocol Last Admin: 08/19/23 08:32 Dose: Not Given Magnesium Hydroxide (Milk Of Magnesia 30 Ml Oral.Susp) 30 ml PO DAILY PRN PRN Reason: Constipation Metformin HCl (Metformin Hcl 1,000 Mg Tablet) 1,000 mg PO BID [facility] Last Admin: 08/19/23 08:32 Dose: Not Given Olanzapine (Olanzapine 5 Mg Tablet) 5 mg PO TID PRN PRN Reason: agitation Ondansetron HCl (Ondansetron Odt 4 Mg Tab.Rapdis) 4 mg TRANSLINGU Q6H PRN PRN Reason: Nausea and Vomiting Propranolol HCl (Propranolol Hcl 10 Mg Tablet) 10 mg PO BID [facility]; Protocol Last Admin: 08/19/23 08:32 Dose: Not Given Trazodone HCl (Trazodone Hcl 50 Mg Tablet) 50 mg PO BEDTIME MRX1 PRN PRN Reason: Insomnia Ziprasidone (Ziprasidone 80 Mg Capsule) 80 mg PO DAILY [facility] Last Admin: 08/19/23 08:32 Dose: Not Given Ziprasidone (Ziprasidone 80 Mg Capsule) 80 mg PO DAILY@1700 [facility] Last Admin: 08/18/23 18:20 Dose: Not Given Allergies Allergies Allergy/AdvReac Type Severity Reaction Status Date / Time clotrimazole Allergy Severe Rash Verified 09/23/22 02:18 Assessment & Plan Assessment & Plan (1) Schizoaffective disorder: Status: Acute Code(s): F25.9 - Schizoaffective disorder, unspecified Plan Patient is a 27 year old female (they/them) with hx of Schizoaffective d/o who presented to [facility] with paranoia, delusions throughout the day which resulted in them calling the police to report a bomb threat on their old apartment building secondary to medication non-compliance. Plan: CV 15 minute safety checks Continue home medications Obtain collateral Discuss starting on mood stabilizer 08/01: Pt presents disorganized with thought blocking. Observed responding to internal stimuli, keeping to self. Pt stated, I'm struggling but whatever. There are too many threats in my life right now and it's making me confused. I'm worried about a lot of people. I'm struggling to explain . Patient reports she believes she has been wire tapped by the news . med compliant. Increased: Geodon to 60mg PO BID 08/02: Pt presents disorganized with thought blocking; conversation is more fluid today after receiving Haldol 5mg PO once and Ativan 1mg PO once yesterday. Observed responding to internal stimuli, keeping to self. Patient denies AH and stated, I usually talk to myself. I'm making a lot of social mistakes here . Patient stated, I'm feeling stressed out. I don't know how to explain it . Patient reports visual hallucinations of a bunch of stuff but could not elaborate. Denies SI/HI. Given another one time dose of Haldol 5mg PO and Ativan 1mg PO. Continue current tx plan. 08/03: no current changes 08/04: no changes 08/05: Increased Geodon to 60mg PO BID. Patient presents alert and oriented today. She is able to state the name of the hospital, the correct month, year, president. However she does present with delusions stating, the last hospital I was at put snakes inside of me and I need to get them removed. I don't need to be on the psychiatric side; I need to be on the medical side of the hospital . Patient reports having visual hallucinations that are distracting but they are not negatively effecting my ability to function . Patient keeping to self, isolative to room. Patient will stop mid-sentence and become distracted by visual hallucinations; she did not elaborate on what they were. Patient reports she would be accepting with an increase in her Geodon and gave verbal permission for T/W to speak with her father. Patient encouraged to consider a JEFF; pt reports other providers have also brought up this topic and would like to consider this option. denies SI/HI/AH 08/06: Patient keeping to self, isolative to room. Presents with thought blocking, not eating unless prompted by staff. Refused medications despite staff encouragement. Observed responding to internal stimuli. Pt continues to believe there is a snake in her body that was placed by last hospitalization. Continue current tx plan. Consider filing Section 7&8 if pt does not improve d/t safety concerns. 08/08: Patient met with [facility] caser shoe parts and T/W today. Presents with thought blocking, paranoia, delusional. Believes we are trying to poison her with medications; believes people are spreading rumors about her. Unable to focus on conversation d/t perceptual disturbances. Observed looking around the room, talking to self, pt's name must be called multiple times before responding and stating what? I didn't hear you . She reports she would like to go to a prison after being discharged from hospital. We discussed benefits of JEFF; T/W informed her that her father also mentioned that he would prefer patient to receive JEFF. Pt then shouted, My father would never say that! Someone is impersonating him! . Continues to believe there was a snake placed inside of her body by last hospital. Not eating unless prompted by staff. Refused medications despite staff encouragement. Will file on patient tomorrow if continues with medication noncompliance. 08/09: Patient continues to present disorganized and delusional. pt stated, I'm worried about the people in my life.The first night I was here,someone was outside my window and threatening me and my family . Pt did take Geodon 80mg PO today d/t pharmacy being able to obtain pill that has 80 printed on it; previous pills had various numbers on pill, which made patient believe she was being givan a very high dosage. She continues to refuse some of her medications. Observed responding to internal stimuli. Will not file on patient d/t starting to take Geodon; pt reports she plans on continuing to be medication compliant. 08/10:Continue plan of care encourage gradual increase 08/11: Continue plan of care with Geodon would try to get patient to accept long-acting injectable would benefit from getting better idea of patient's treatment history is an outpatient has been difficult clarify with patient cannot give the names of outpatient providers or clear treatment history. 08/12: Patient continues to present delusional and paranoid. Pt stated, I have stuff going on that's weird and I don't know what's behind it. Your coworker Adrienne is involved with something being outside my window, threatening me and my family. I don't trust the or police. Also someone was trying to make a horror movie of me at the last hospital while using the cameras . T/W reviewed medications with pt's request; pt stated, I don't need an antipsychotics. You were trying to give me really high dosages of Geodon, like 200 something but now it's correct . T/W explained her dosage was correct,and the manufacture writes numbers on some medications; pt continued to accuse T/W of giving her incorrect dosage. Observed responding to internal stimuli. 08/13: Patient continue to present delusional and paranoid. Refused her morning dose of Geodon. Pt reports she is worried that I have radiation poisoning and will get all of you sick . Patient believes she came to the hospital d/t [facility] being worried that I was going to get their employees in trouble for telling the police they were going to set off a bomb at my last apartment . Patient reports she spoke to her parents yesterday on the phone and feels upset since my parents are not taking the threats seriously and think I'm paranoid. I'm not paranoid! . Patient gives verbal consent to speak with her father but does not want us to speak with her mother. Pt perseverative about various safety concerns and threats. Will reach out to pts father for collateral. 08/14: Pt presents delusional, paranoid, thought blocking. Observed pacing room, talking to self. Responding to internal stimuli. T/W would call patients name, pt would stop, stare at T/W not respond and continue to pace. Pt refused Geodon yesterday and today. to call father today for collateral. 08/15/2023 PATIENT REMAINS GENERALLY NOT CONSISTENTLY TAKING MEDICATION FLORIDLY PARANOID DISORGANIZED THOUGHT BLOCKING AND DIFFICULTY WITH FUNCTIONING. PREOCCUPATION IS REGARDING SOMATIC DELUSIONAL MATERIAL WERE FEARS THAT SHE IS SOMEHOW BEING INJURED OR ATTACKED EITHER BY HOSPITAL OR OTHERS AND PREOCCUPIED WITH THAT SHE WAS ATTACKED ON MULTIPLE OCCASIONS ON OTHERS INCLUDING PAST HOSPITAL AND REPEATEDLY. DOES NOT SEEM TO UNDERSTAND THAT SHE HAS PSYCHIATRIC PSYCHOTIC ILLNESS NOR THAT SHE WOULD BENEFIT FROM ONGOING MEDICATION FOR HER PSYCHIATRIC ILLNESS NOR FOR HER HYPERTENSION GIVEN PATIENT'S MARKED LIMITATION FUNCTIONING FLORID DELUSIONAL CONSISTENT AND CONSTANT PREOCCUPATION MARKED LIMITATIONS IN FUNCTIONING THE SHE SHE WOULD BENEFIT FROM A COMMITMENT AND TREATMENT PLAN TO ADDRESS WHAT HAS BEEN AN ONGOING MARKED IMPAIRMENT IN HER ABILITY TO CARE FOR HERSELF OUTSIDE OF A HOSPITAL SETTING WOULD ULTIMATELY BENEFIT FROM A LONG-ACTING INJECTABLE 08/16- continues to present with complex paranoid and somatic delusions and auditory hallucinations having conversation with someone who is not there. Pt continues to decline medications including lisinopril when SBP in 180's. No capacity to make medical decisions. Impaired judment due to severity of psychiatric symptoms affecting her ability to care for herself. 08/17: Continue current regimen and plans. Continue to encourage in taking her medications Reason for continued inpatient stay Substantial Risk for: inability to function Time Spent With Patient Time: Total time managing care of this patient today ____ minutes. Documented by User: Ritu Barriga 08/19/23 14:37 Subjective Subjective Date of Service: 08/19/23 Reason For Visit: pt exp delusions, pt denies si/hi, per ems Interim History: Pt continues to perseverate on my medical issues but unable to articulate symptoms when directly asked. Pt reassured that her labs show no signs of infection, despite her insistence that she has an infection. Pt reassured that she is not contagious because no one else is sick on the unit. Pt paused while walking past the day room and asked, is anyone sick? When no other pt's or staff responded, she stated oh, I'm so relieved . Education provided on her consistently high blood pressures, today was 145/75 and as high as 180s/100s last week, and recommendation to take scheduled lisinopril and propranolol. Education provided on need to treat measurable physical signs and symptoms, such as high blood pressure, first before a more extensive physical work-up, as she has requested. Pt appeared to be responding to internal stimuli at times, asking TW to repeat questions or information given multiple times. With encouragement, pt agreed to take lisinopril and propranolol crushed in in orange sherbet. When attempt was made to have her take pills whole, she began to gag at the sight of the pills. Pt continued to decline scheduled Geodon, stating someone switched the pills and its not really Geodon its something else, so I won't take them here . Pt denied current SI. Diagnostics Labs 08/16/23 08:46 08/18/23 08:19 Assessment & Plan Assessment & Plan (1) Schizoaffective disorder: Status: Acute Code(s): F25.9 - Schizoaffective disorder, unspecified Plan Patient is a 27 year old female (they/them) with hx of Schizoaffective d/o who presented to [facility] with paranoia, delusions throughout the day which resulted in them calling the police to report a bomb threat on their old apartment building secondary to medication non-compliance. Plan: CV 15 minute safety checks Continue home medications Obtain collateral Discuss starting on mood stabilizer 08/01: Pt presents disorganized with thought blocking. Observed responding to internal stimuli, keeping to self. Pt stated, I'm struggling but whatever. There are too many threats in my life right now and it's making me confused. I'm worried about a lot of people. I'm struggling to explain . Patient reports she believes she has been wire tapped by the news . med compliant. Increased: Geodon to 60mg PO BID 08/02: Pt presents disorganized with thought blocking; conversation is more fluid today after receiving Haldol 5mg PO once and Ativan 1mg PO once yesterday. Observed responding to internal stimuli, keeping to self. Patient denies AH and stated, I usually talk to myself. I'm making a lot of social mistakes here . Patient stated, I'm feeling stressed out. I don't know how to explain it . Patient reports visual hallucinations of a bunch of stuff but could not elaborate. Denies SI/HI. Given another one time dose of Haldol 5mg PO and Ativan 1mg PO. Continue current tx plan. 08/03: no current changes 08/04: no changes 08/05: Increased Geodon to 60mg PO BID. Patient presents alert and oriented today. She is able to state the name of the hospital, the correct month, year, president. However she does present with delusions stating, the last hospital I was at put snakes inside of me and I need to get them removed. I don't need to be on the psychiatric side; I need to be on the medical side of the hospital . Patient reports having visual hallucinations that are distracting but they are not negatively effecting my ability to function . Patient keeping to self, isolative to room. Patient will stop mid-sentence and become distracted by visual hallucinations; she did not elaborate on what they were. Patient reports she would be accepting with an increase in her Geodon and gave verbal permission for T/W to speak with her father. Patient encouraged to consider a JEFF; pt reports other providers have also brought up this topic and would like to consider this option. denies SI/HI/AH 08/06: Patient keeping to self, isolative to room. Presents with thought blocking, not eating unless prompted by staff. Refused medications despite staff encouragement. Observed responding to internal stimuli. Pt continues to believe there is a snake in her body that was placed by last hospitalization. Continue current tx plan. Consider filing Section 7&8 if pt does not improve d/t safety concerns. 08/08: Patient met with [facility] [employer] and T/W today. Presents with thought blocking, paranoia, delusional. Believes we are trying to poison her with medications; believes people are spreading rumors about her. Unable to focus on conversation d/t perceptual disturbances. Observed looking around the room, talking to self, pt's name must be called multiple times before responding and stating what? I didn't hear you . She reports she would like to go to a prison after being discharged from hospital. We discussed benefits of JEFF; T/W informed her that her father also mentioned that he would prefer patient to receive JEFF. Pt then shouted, My father would never say that! Someone is impersonating him! . Continues to believe there was a snake placed inside of her body by last hospital. Not eating unless prompted by staff. Refused medications despite staff encouragement. Will file on patient tomorrow if continues with medication noncompliance. 08/09: Patient continues to present disorganized and delusional. pt stated, I'm worried about the people in my life.The first night I was here,someone was outside my window and threatening me and my family . Pt did take Geodon 80mg PO today d/t pharmacy being able to obtain pill that has 80 printed on it; previous pills had various numbers on pill, which made patient believe she was being givan a very high dosage. She continues to refuse some of her medications. Observed responding to internal stimuli. Will not file on patient d/t starting to take Geodon; pt reports she plans on continuing to be medication compliant. 08/10:Continue plan of care encourage gradual increase 08/11: Continue plan of care with Geodon would try to get patient to accept long-acting injectable would benefit from getting better idea of patient's treatment history is an outpatient has been difficult clarify with patient cannot give the names of outpatient providers or clear treatment history. 08/12: Patient continues to present delusional and paranoid. Pt stated, I have stuff going on that's weird and I don't know what's behind it. Your coworker Adrienne is involved with something being outside my window, threatening me and my family. I don't trust the or police. Also someone was trying to make a horror movie of me at the last hospital while using the cameras . T/W reviewed medications with pt's request; pt stated, I don't need an antipsychotics. You were trying to give me really high dosages of Geodon, like 200 something but now it's correct . T/W explained her dosage was correct,and the manufacture writes numbers on some medications; pt continued to accuse T/W of giving her incorrect dosage. Observed responding to internal stimuli. 08/13: Patient continue to present delusional and paranoid. Refused her morning dose of Geodon. Pt reports she is worried that I have radiation poisoning and will get all of you sick . Patient believes she came to the hospital d/t [facility] being worried that I was going to get their employees in trouble for telling the police they were going to set off a bomb at my last apartment . Patient reports she spoke to her parents yesterday on the phone and feels upset since my parents are not taking the threats seriously and think I'm paranoid. I'm not paranoid! . Patient gives verbal consent to speak with her father but does not want us to speak with her mother. Pt perseverative about various safety concerns and threats. Will reach out to pts father for collateral. 08/14: Pt presents delusional, paranoid, thought blocking. Observed pacing room, talking to self. Responding to internal stimuli. T/W would call patients name, pt would stop, stare at T/W not respond and continue to pace. Pt refused Geodon yesterday and today. to call father today for collateral. 08/15/2023 PATIENT REMAINS GENERALLY NOT CONSISTENTLY TAKING MEDICATION FLORIDLY PARANOID DISORGANIZED THOUGHT BLOCKING AND DIFFICULTY WITH FUNCTIONING. PREOCCUPATION IS REGARDING SOMATIC DELUSIONAL MATERIAL WERE FEARS THAT SHE IS SOMEHOW BEING INJURED OR ATTACKED EITHER BY HOSPITAL OR OTHERS AND PREOCCUPIED WITH THAT SHE WAS ATTACKED ON MULTIPLE OCCASIONS ON OTHERS INCLUDING PAST HOSPITAL AND REPEATEDLY. DOES NOT SEEM TO UNDERSTAND THAT SHE HAS PSYCHIATRIC PSYCHOTIC ILLNESS NOR THAT SHE WOULD BENEFIT FROM ONGOING MEDICATION FOR HER PSYCHIATRIC ILLNESS NOR FOR HER HYPERTENSION GIVEN PATIENT'S MARKED LIMITATION FUNCTIONING FLORID DELUSIONAL CONSISTENT AND CONSTANT PREOCCUPATION MARKED LIMITATIONS IN FUNCTIONING THE SHE SHE WOULD BENEFIT FROM A COMMITMENT AND TREATMENT PLAN TO ADDRESS WHAT HAS BEEN AN ONGOING MARKED IMPAIRMENT IN HER ABILITY TO CARE FOR HERSELF OUTSIDE OF A HOSPITAL SETTING WOULD ULTIMATELY BENEFIT FROM A LONG-ACTING INJECTABLE 08/16- continues to present with complex paranoid and somatic delusions and auditory hallucinations having conversation with someone who is not there. Pt continues to decline medications including lisinopril when SBP in 180's. No capacity to make medical decisions. Impaired judment due to severity of psychiatric symptoms affecting her ability to care for herself. 08/17: Continue current regimen and plans. Continue to encourage in taking her medications 08/19: Conditional voluntary revoked and filed section 7. Continue to encourage taking medications.
[2023-08-19] MEDS: Propranolol HCL 10 MG TABLET PO (10:32)
[2023-08-19] MEDS: lisinopriL 2.5 MG TABLET PO (10:33)
[2023-08-19 20:49] VITALS: BP 154/74; PULSE 88; TEMP 36.3; O2SAT 99
[2023-08-20 07:30] VITALS: BP 129/91; PULSE 86; TEMP 36.4; O2SAT 97
--- NOTE | 2023-08-20 09:58 | P.PNPSI_ITS ---
Documented by User: Gayatri Mcclendon NP 08/20/23 13:48 Subjective Subjective Date of Service: 08/20/23 Reason For Visit: pt exp delusions, pt denies si/hi, per ems Subjective Notes: Section 7 Interim History: Reviewed with . Pt presents delusional, paranoid, thought blocking. Observed staring around room. Responding to internal stimuli. T/W would call patients name, pt would stop, stare at T/W not respond. Pt stated, I'm too poisoned to take anything. I heard some scary staff about the doctor here; I heard he's a Nazi. I'm scared. I'm worried about the world . Pt did confirm that she is having visual hallucinations today; but would not elaborate. Medication Compliance: Intermittent Side effects from medications: No Attending Groups: Intermittent Review of Systems Constitutional: Reports as per HPI Eyes: Reports as per HPI Reports as per HPI Cardiovascular: Reports as per HPI Respiratory: Reports as per HPI Gastrointestinal: Reports as per HPI Genitourinary: Reports as per HPI Musculoskeletal: Reports as per HPI Skin/Breast: Reports as per HPI Reports as per HPI Psychiatric: Reports as per HPI Endocrine: Reports as per HPI Hematologic/Lymphatic: Reports as per HPI Allergic/Immunologic: Reports as per HPI Mental Status Exam Mental Status Exam Narrative: Pt behavior is guarded and calm; dressed in casual attire with unkempt hair; mood is described as anxious ; eye contact appropriate; Speech is normal rate; thought blocking; Thought content is delusional, paranoid; denies SI/HI. observed responding to internal stimuli. Diagnostics Vital Signs (24Hr): Vital Signs - 24 hr 08/19/23 20:49 08/20/23 07:30 Temperature 97.3 F 97.5 F Pulse Rate 88 86 Blood Pressure 154/74 H 129/91 H Pulse Oximetry 99 97 Oxygen Delivery Method Room Air Room Air BMI result Body Mass Index 39.0 Labs 08/16/23 08:46 08/18/23 08:19 Medications Medications Current Medications Acetaminophen (Acetaminophen 325 Mg Tablet) 650 mg PO Q6H PRN PRN Reason: Headache/Pain Mild Scale (1-3) Al Hydroxide/Mg Hydroxide (Magnesium Hydrox/Alum Hydrox 30 Ml Oral.Susp) 30 ml PO Q6H PRN PRN Reason: Heartburn/Nausea Last Admin: 08/17/23 20:30 Dose: 30 ml Albuterol Sulfate (Albuterol Sulfate 90 Mcg 8 Gm Inhaler) 2 puff INHALE RQ4H PRN PRN Reason: short of breath Clonidine HCl (Clonidine Hcl 0.1 Mg Tablet) 0.1 mg PO BID PRN; Protocol PRN Reason: Anxiety Last Admin: 08/01/23 22:12 Dose: 0.1 mg Hydroxyzine HCl (Hydroxyzine Hcl 25 Mg Tablet) 25 mg PO Q6H PRN PRN Reason: Anxiety Last Admin: 07/31/23 17:01 Dose: 25 mg Lisinopril (Lisinopril 2.5 Mg Tablet) 2.5 mg PO DAILY [facility]; Protocol Last Admin: 08/19/23 10:33 Dose: 2.5 mg Magnesium Hydroxide (Milk Of Magnesia 30 Ml Oral.Susp) 30 ml PO DAILY PRN PRN Reason: Constipation Metformin HCl (Metformin Hcl 1,000 Mg Tablet) 1,000 mg PO BID [facility] Last Admin: 08/19/23 20:50 Dose: Not Given Olanzapine (Olanzapine 5 Mg Tablet) 5 mg PO TID PRN PRN Reason: agitation Ondansetron HCl (Ondansetron Odt 4 Mg Tab.Rapdis) 4 mg TRANSLINGU Q6H PRN PRN Reason: Nausea and Vomiting Propranolol HCl (Propranolol Hcl 10 Mg Tablet) 10 mg PO BID [facility]; Protocol Last Admin: 08/19/23 20:50 Dose: Not Given Trazodone HCl (Trazodone Hcl 50 Mg Tablet) 50 mg PO BEDTIME MRX1 PRN PRN Reason: Insomnia Ziprasidone (Ziprasidone 80 Mg Capsule) 80 mg PO DAILY [facility] Last Admin: 08/19/23 08:32 Dose: Not Given Ziprasidone (Ziprasidone 80 Mg Capsule) 80 mg PO DAILY@1700 [facility] Last Admin: 08/19/23 18:25 Dose: Not Given Allergies Allergies Allergy/AdvReac Type Severity Reaction Status Date / Time clotrimazole Allergy Severe Rash Verified 09/23/22 02:18 Assessment & Plan Assessment & Plan (1) Schizoaffective disorder: Status: Acute Code(s): F25.9 - Schizoaffective disorder, unspecified Plan Patient is a 27 year old female (they/them) with hx of Schizoaffective d/o who [place] [facility] [place], delusions throughout the day which resulted in them calling the police to report a bomb threat on their old apartment building secondary to medication non-compliance. Plan: CV 15 minute safety checks Continue home medications Obtain collateral Discuss starting on mood stabilizer 08/01: Pt presents disorganized with thought blocking. Observed responding to internal stimuli, keeping to self. Pt stated, I'm struggling but whatever. There are too many threats in my life right now and it's making me confused. I'm worried about a lot of people. I'm struggling to explain . Patient reports she believes she has been wire tapped by the news . med compliant. Increased: Geodon to 60mg PO BID 08/02: Pt presents disorganized with thought blocking; conversation is more fluid today after receiving Haldol 5mg PO once and Ativan 1mg PO once yesterday. Observed responding to internal stimuli, keeping to self. Patient denies AH and stated, I usually talk to myself. I'm making a lot of social mistakes here . Patient stated, I'm feeling stressed out. I don't know how to explain it . Patient reports visual hallucinations of a bunch of stuff but could not elaborate. Denies SI/HI. Given another one time dose of Haldol 5mg PO and Ativan 1mg PO. Continue current tx plan. 08/03: no current changes 08/04: no changes 08/05: Increased Geodon to 60mg PO BID. Patient presents alert and oriented today. She is able to state the name of the hospital, the correct month, year, president. However she does present with delusions stating, the last hospital I was at put snakes inside of me and I need to get them removed. I don't need to be on the psychiatric side; I need to be on the medical side of the hospital . Patient reports having visual hallucinations that are distracting but they are not negatively effecting my ability to function . Patient keeping to self, isolative to room. Patient will stop mid-sentence and become distracted by visual hallucinations; she did not elaborate on what they were. Patient reports she would be accepting with an increase in her Geodon and gave verbal permission for T/W to speak with her father. Patient encouraged to consider a JEFF; pt reports other providers have also brought up this topic and would like to consider this option. denies SI/HI/AH 08/06: Patient keeping to self, isolative to room. Presents with thought blocking, not eating unless prompted by staff. Refused medications despite staff encouragement. Observed responding to internal stimuli. Pt continues to believe there is a snake in her body that was placed by last hospitalization. Continue current tx plan. Consider filing Section 7&8 if pt does not improve d/t safety concerns. 08/08: Patient met with [facility] child support case officer and T/W today. Presents with thought blocking, paranoia, delusional. Believes we are trying to poison her with medications; believes people are spreading rumors about her. Unable to focus on conversation d/t perceptual disturbances. Observed looking around the room, talking to self, pt's name must be called multiple times before responding and stating what? I didn't hear you . She reports she would like to go to a detention after being discharged from hospital. We discussed benefits of JEFF; T/W informed her that her father also mentioned that he would prefer patient to receive JEFF. Pt then shouted, My father would never say that! Someone is impersonating him! . Continues to believe there was a snake placed inside of her body by last hospital. Not eating unless prompted by staff. Refused medications despite staff encouragement. Will file on patient tomorrow if continues with medication noncompliance. 08/09: Patient continues to present disorganized and delusional. pt stated, I'm worried about the people in my life.The first night I was here,someone was outside my window and threatening me and my family . Pt did take Geodon 80mg PO today d/t pharmacy being able to obtain pill that has 80 printed on it; previous pills had various numbers on pill, which made patient believe she was being givan a very high dosage. She continues to refuse some of her medications. Observed responding to internal stimuli. Will not file on patient d/t starting to take Geodon; pt reports she plans on continuing to be medication compliant. 08/10:Continue plan of care encourage gradual increase 08/11: Continue plan of care with Geodon would try to get patient to accept long-acting injectable would benefit from getting better idea of patient's treatment history is an outpatient has been difficult clarify with patient cannot give the names of outpatient providers or clear treatment history. 08/12: Patient continues to present delusional and paranoid. Pt stated, I have stuff going on that's weird and I don't know what's behind it. Your coworker Adrienne is involved with something being outside my window, threatening me and my family. I don't trust the or police. Also someone was trying to make a horror movie of me at the last hospital while using the cameras . T/W reviewed medications with pt's request; pt stated, I don't need an antipsychotics. You were trying to give me really high dosages of Geodon, like 200 something but now it's correct . T/W explained her dosage was correct,and the manufacture writes numbers on some medications; pt continued to accuse T/W of giving her incorrect dosage. Observed responding to internal stimuli. 08/13: Patient continue to present delusional and paranoid. Refused her morning dose of Geodon. Pt reports she is worried that I have radiation poisoning and will get all of you sick . Patient believes she came to the hospital d/t [facility] being worried that I was going to get their employees in trouble for telling the police they were going to set off a bomb at my last apartment . Patient reports she spoke to her parents yesterday on the phone and feels upset since my parents are not taking the threats seriously and think I'm paranoid. I'm not paranoid! . Patient gives verbal consent to speak with her father but does not want us to speak with her mother. Pt perseverative about various safety concerns and threats. Will reach out to pts father for collateral. 08/14: Pt presents delusional, paranoid, thought blocking. Observed pacing room, talking to self. Responding to internal stimuli. T/W would call patients name, pt would stop, stare at T/W not respond and continue to pace. Pt refused Geodon yesterday and today. to call father today for collateral. 08/15/2023 PATIENT REMAINS GENERALLY NOT CONSISTENTLY TAKING MEDICATION FLORIDLY PARANOID DISORGANIZED THOUGHT BLOCKING AND DIFFICULTY WITH FUNCTIONING. PREOCCUPATION IS REGARDING SOMATIC DELUSIONAL MATERIAL WERE FEARS THAT SHE IS SOMEHOW BEING INJURED OR ATTACKED EITHER BY HOSPITAL OR OTHERS AND PREOCCUPIED WITH THAT SHE WAS ATTACKED ON MULTIPLE OCCASIONS ON OTHERS INCLUDING PAST HOSPITAL AND REPEATEDLY. DOES NOT SEEM TO UNDERSTAND THAT SHE HAS PSYCHIATRIC PSYCHOTIC ILLNESS NOR THAT SHE WOULD BENEFIT FROM ONGOING MEDICATION FOR HER PSYCHIATRIC ILLNESS NOR FOR HER HYPERTENSION GIVEN PATIENT'S MARKED LIMITATION FUNCTIONING FLORID DELUSIONAL CONSISTENT AND CONSTANT PREOCCUPATION MARKED LIMITATIONS IN FUNCTIONING THE SHE SHE WOULD BENEFIT FROM A COMMITMENT AND TREATMENT PLAN TO ADDRESS WHAT HAS BEEN AN ONGOING MARKED IMPAIRMENT IN HER ABILITY TO CARE FOR HERSELF OUTSIDE OF A HOSPITAL SETTING WOULD ULTIMATELY BENEFIT FROM A LONG- ACTING INJECTABLE 08/16- continues to present with complex paranoid and somatic delusions and auditory hallucinations having conversation with someone who is not there. Pt continues to decline medications including lisinopril when SBP in 180's. No capacity to make medical decisions. Impaired judment due to severity of psychiatric symptoms affecting her ability to care for herself. 08/17: Continue current regimen and plans. Continue to encourage in taking her medications 08/19: Conditional voluntary revoked and filed section 7. Continue to encourage taking medications. 08/20: Pt presents delusional, paranoid, thought blocking. Observed staring around room. Responding to internal stimuli. T/W would call patients name, pt would stop, stare at T/W not respond. Pt stated, I'm too poisoned to take anything. I heard some scary staff about the doctor here. I'm scared. I'm worried about the world . Pt did confirm that she is having visual hallucinations today; but would not elaborate. Patient educated on: medication risk/benefits Informed Consent: understands and further education needed Reason for continued inpatient stay Substantial Risk for: inability to function and med/psych decompensation Time Spent With Patient Time: Total time managing care of this patient today _30___ minutes. Documented by User: Michael Gavin MD 08/20/23 20:03 Subjective Subjective Reason For Visit: pt exp delusions, pt denies si/hi, per ems Interim History: Reviewed with . Pt presents delusional, paranoid, thought blocking. Observed staring around room. Responding to internal stimuli. T/W would call patients name, pt would stop, stare at T/W not respond. Pt stated, I'm too poisoned to take anything. I heard some scary staff about the doctor here; I heard he's a Nazi. I'm scared. I'm worried about the world . Pt did confirm that she is having visual hallucinations today; but would not elaborate. pt with marked thought disorder disorganized fearful refusing psychiatric medication and intermittantly most medical medication difficulty processing information cannot describe a place she could go to if discharged Review of Systems htn Mental Status Exam Mental Status Exam Narrative: Pt behavior is guarded and calm; dressed in casual attire with unkempt hair; mood is described as anxious ; eye contact appropriate; Speech is normal rate; thought blocking derailment hard to maintain track of thought Thought content is delusional, paranoid; denies SI/HI. observed responding to internal stimuli.marked poor insight Diagnostics Labs 08/16/23 08:46 08/18/23 08:19 Assessment & Plan Assessment & Plan (1) Schizoaffective disorder: Status: Acute Code(s): F25.9 - Schizoaffective disorder, unspecified Plan Patient is a 27 year old female (they/them) with hx of Schizoaffective d/o who [place] [facility] [place], delusions throughout the day which resulted in them calling the police to report a bomb threat on their old apartment building secondary to medication non-compliance. Plan: CV 15 minute safety checks Continue home medications Obtain collateral Discuss starting on mood stabilizer 08/01: Pt presents disorganized with thought blocking. Observed responding to internal stimuli, keeping to self. Pt stated, I'm struggling but whatever. There are too many threats in my life right now and it's making me confused. I'm worried about a lot of people. I'm struggling to explain . Patient reports she believes she has been wire tapped by the news . med compliant. Increased: Geodon to 60mg PO BID 08/02: Pt presents disorganized with thought blocking; conversation is more fluid today after receiving Haldol 5mg PO once and Ativan 1mg PO once yesterday. Observed responding to internal stimuli, keeping to self. Patient denies AH and stated, I usually talk to myself. I'm making a lot of social mistakes here . Patient stated, I'm feeling stressed out. I don't know how to explain it . Patient reports visual hallucinations of a bunch of stuff but could not elaborate. Denies SI/HI. Given another one time dose of Haldol 5mg PO and Ativan 1mg PO. Continue current tx plan. 08/03: no current changes 08/04: no changes 08/05: Increased Geodon to 60mg PO BID. Patient presents alert and oriented today. She is able to state the name of the hospital, the correct month, year, president. However she does present with delusions stating, the last hospital I was at put snakes inside of me and I need to get them removed. I don't need to be on the psychiatric side; I need to be on the medical side of the hospital . Patient reports having visual hallucinations that are distracting but they are not negatively effecting my ability to function . Patient keeping to self, isolative to room. Patient will stop mid-sentence and become distracted by visual hallucinations; she did not elaborate on what they were. Patient reports she would be accepting with an increase in her Geodon and gave verbal permission for T/W to speak with her father. Patient encouraged to consider a JEFF; pt reports other providers have also brought up this topic and would like to consider this option. denies SI/HI/AH 08/06: Patient keeping to self, isolative to room. Presents with thought blocking, not eating unless prompted by staff. Refused medications despite staff encouragement. Observed responding to internal stimuli. Pt continues to believe there is a snake in her body that was placed by last hospitalization. Continue current tx plan. Consider filing Section 7&8 if pt does not improve d/t safety concerns. 08/08: Patient met with [facility] child support case officer and T/W today. Presents with thought blocking, paranoia, delusional. Believes we are trying to poison her with medications; believes people are spreading rumors about her. Unable to focus on conversation d/t perceptual disturbances. Observed looking around the room, talking to self, pt's name must be called multiple times before responding and stating what? I didn't hear you . She reports she would like to go to a detention after being discharged from hospital. We discussed benefits of JEFF; T/W informed her that her father also mentioned that he would prefer patient to receive JEFF. Pt then shouted, My father would never say that! Someone is impersonating him! . Continues to believe there was a snake placed inside of her body by last hospital. Not eating unless prompted by staff. Refused medications despite staff encouragement. Will file on patient tomorrow if continues with medication noncompliance. 08/09: Patient continues to present disorganized and delusional. pt stated, I'm worried about the people in my life.The first night I was here,someone was outside my window and threatening me and my family . Pt did take Geodon 80mg PO today d/t pharmacy being able to obtain pill that has 80 printed on it; previous pills had various numbers on pill, which made patient believe she was being givan a very high dosage. She continues to refuse some of her medications. Observed responding to internal stimuli. Will not file on patient d/t starting to take Geodon; pt reports she plans on continuing to be medication compliant. 08/10:Continue plan of care encourage gradual increase 08/11: Continue plan of care with Geodon would try to get patient to accept long-acting injectable would benefit from getting better idea of patient's treatment history is an outpatient has been difficult clarify with patient cannot give the names of outpatient providers or clear treatment history. 08/12: Patient continues to present delusional and paranoid. Pt stated, I have stuff going on that's weird and I don't know what's behind it. Your coworker Adrienne is involved with something being outside my window, threatening me and my family. I don't trust the or police. Also someone was trying to make a horror movie of me at the last hospital while using the cameras . T/W reviewed medications with pt's request; pt stated, I don't need an antipsychotics. You were trying to give me really high dosages of Geodon, like 200 something but now it's correct . T/W explained her dosage was correct,and the manufacture writes numbers on some medications; pt continued to accuse T/W of giving her incorrect dosage. Observed responding to internal stimuli. 08/13: Patient continue to present delusional and paranoid. Refused her morning dose of Geodon. Pt reports she is worried that I have radiation poisoning and will get all of you sick . Patient believes she came to the hospital [facility]t [facility] being worried that I was going to get their employees in trouble for telling the police they were going to set off a bomb at my last apartment . Patient reports she spoke to her parents yesterday on the phone and feels upset since my parents are not taking the threats seriously and think I'm paranoid. I'm not paranoid! . Patient gives verbal consent to speak with her father but does not want us to speak with her mother. Pt perseverative about various safety concerns and threats. Will reach out to pts father for collateral. 08/14: Pt presents delusional, paranoid, thought blocking. Observed pacing room, talking to self. Responding to internal stimuli. T/W would call patients name, pt would stop, stare at T/W not respond and continue to pace. Pt refused Geodon yesterday and today. to call father today for collateral. 08/15/2023 PATIENT REMAINS GENERALLY NOT CONSISTENTLY TAKING MEDICATION FLORIDLY PARANOID DISORGANIZED THOUGHT BLOCKING AND DIFFICULTY WITH FUNCTIONING. PREOCCUPATION IS REGARDING SOMATIC DELUSIONAL MATERIAL WERE FEARS THAT SHE IS SOMEHOW BEING INJURED OR ATTACKED EITHER BY HOSPITAL OR OTHERS AND PREOCCUPIED WITH THAT SHE WAS ATTACKED ON MULTIPLE OCCASIONS ON OTHERS INCLUDING PAST HOSPITAL AND REPEATEDLY. DOES NOT SEEM TO UNDERSTAND THAT SHE HAS PSYCHIATRIC PSYCHOTIC ILLNESS NOR THAT SHE WOULD BENEFIT FROM ONGOING MEDICATION FOR HER PSYCHIATRIC ILLNESS NOR FOR HER HYPERTENSION GIVEN PATIENT'S MARKED LIMITATION FUNCTIONING FLORID DELUSIONAL CONSISTENT AND CONSTANT PREOCCUPATION MARKED LIMITATIONS IN FUNCTIONING THE SHE SHE WOULD BENEFIT FROM A COMMITMENT AND TREATMENT PLAN TO ADDRESS WHAT HAS BEEN AN ONGOING MARKED IMPAIRMENT IN HER ABILITY TO CARE FOR HERSELF OUTSIDE OF A HOSPITAL SETTING WOULD ULTIMATELY BENEFIT FROM A LONG- ACTING INJECTABLE 08/16- continues to present with complex paranoid and somatic delusions and auditory hallucinations having conversation with someone who is not there. Pt continues to decline medications including lisinopril when SBP in 180's. No capacity to make medical decisions. Impaired judment due to severity of psychiatric symptoms affecting her ability to care for herself. 08/17: Continue current regimen and plans. Continue to encourage in taking her medications 08/19: Conditional voluntary revoked and filed section 7. Continue to encourage taking medications. 08/20: Pt presents delusional, paranoid, thought blocking. Observed staring around room. Responding to internal stimuli. T/W would call patients name, pt would stop, stare at T/W not respond. Pt stated, I'm too poisoned to take anything. I heard some scary staff about the doctor here. I'm scared. I'm worried about the world . Pt did confirm that she is having visual hallucinations today; but would not elaborate. hearing scheduled will try to start long acting inj such as invega
[2023-08-20 20:10] VITALS: BP 147/96; PULSE 76; RESP 14; TEMP 36.6; O2SAT 100
[2023-08-21 06:00] VITALS: BP 139/77; PULSE 87; TEMP 36.2; O2SAT 96
--- NOTE | 2023-08-21 09:40 | HO.PSYCHPN ---
Subjective Subjective Date of Service: 08/21/23 Reason For Visit: pt exp delusions, pt denies si/hi, per ems Subjective Notes: Section 7 Healthcare Proxy: No Guardianship: No Interim History: The patient continues to be floridly delusional refusing her Geodon saying she is choking gagging preoccupied with multiple delusional somatic concerns that she was poisoned the other hospital if that she was burned there on fire at the food is somehow being poisoned hearing people with loud voices outside . Patient often isolative somewhat disheveled difficulty staying on linear tract when having conversation. In focused on the fact that she is radioactive contaminating other people difficulty conversing regarding anything beyond paranoid delusional systems. Has needed encouragement to eat and drink only takes med it is occasionally with much encouragement Mental Status Exam Mental Status Exam Narrative: Pt behavior somewhat disheveled in appearance wearing hospital garb hair unkempt mood anxious somewhat labile particularly when asked questions regarding her psychiatric history medication all of a sudden will put her fingers down her throat run into the bathroom states that she is nauseous. She is distracted internally preoccupied appears to be listening to auditory hallucinations ; thought blocking derailment hard to maintain track of thought Thought content is delusional, paranoid; denies SI/HI. observed responding to internal stimuli.marked poor insight cannot really explain why she is not taking medication is focused on the fact that she is medically ill with multiple bizarre preoccupations denies active SI or HI but none clear how she would take care of herself if she were not in the hospital Diagnostics Vital Signs (24Hr): Vital Signs - 24 hr 08/20/23 20:10 08/21/23 06:00 Temperature 97.8 F 97.1 F Pulse Rate 76 87 Respiratory Rate 14 Blood Pressure 147/96 H 139/77 Pulse Oximetry 100 96 Oxygen Delivery Method Room Air Room Air BMI result Body Mass Index 39.0 Labs 08/16/23 08:46 08/18/23 08:19 Medications Medications Current Medications Acetaminophen (Acetaminophen 325 Mg Tablet) 650 mg PO Q6H PRN PRN Reason: Headache/Pain Mild Scale (1-3) Al Hydroxide/Mg Hydroxide (Magnesium Hydrox/Alum Hydrox 30 Ml Oral.Susp) 30 ml PO Q6H PRN PRN Reason: Heartburn/Nausea Last Admin: 08/17/23 20:30 Dose: 30 ml Albuterol Sulfate (Albuterol Sulfate 90 Mcg 8 Gm Inhaler) 2 puff INHALE RQ4H PRN PRN Reason: short of breath Clonidine HCl (Clonidine Hcl 0.1 Mg Tablet) 0.1 mg PO BID PRN; Protocol PRN Reason: Anxiety Last Admin: 08/01/23 22:12 Dose: 0.1 mg Hydroxyzine HCl (Hydroxyzine Hcl 25 Mg Tablet) 25 mg PO Q6H PRN PRN Reason: Anxiety Last Admin: 07/31/23 17:01 Dose: 25 mg Lisinopril (Lisinopril 2.5 Mg Tablet) 2.5 mg PO DAILY [facility]; Protocol Last Admin: 08/20/23 10:23 Dose: Not Given Magnesium Hydroxide (Milk Of Magnesia 30 Ml Oral.Susp) 30 ml PO DAILY PRN PRN Reason: Constipation Metformin HCl (Metformin Hcl 1,000 Mg Tablet) 1,000 mg PO BID [facility] Last Admin: 08/20/23 20:52 Dose: Not Given Olanzapine (Olanzapine 5 Mg Tablet) 5 mg PO TID PRN PRN Reason: agitation Ondansetron HCl (Ondansetron Odt 4 Mg Tab.Rapdis) 4 mg TRANSLINGU Q6H PRN PRN Reason: Nausea and Vomiting Polyethylene Glycol (Polyethylene Glycol 3350 17 Gm Powd.Pack) 17 gm PO DAILY PRN PRN Reason: Constipation Propranolol HCl (Propranolol Hcl 10 Mg Tablet) 10 mg PO BID [facility]; Protocol Last Admin: 08/20/23 20:52 Dose: Not Given Trazodone HCl (Trazodone Hcl 50 Mg Tablet) 50 mg PO BEDTIME MRX1 PRN PRN Reason: Insomnia Ziprasidone (Ziprasidone 80 Mg Capsule) 80 mg PO DAILY [facility] Last Admin: 08/20/23 10:24 Dose: Not Given Ziprasidone (Ziprasidone 80 Mg Capsule) 80 mg PO DAILY@1700 [facility] Last Admin: 08/20/23 16:37 Dose: Not Given Allergies Allergies Allergy/AdvReac Type Severity Reaction Status Date / Time clotrimazole Allergy Severe Rash Verified 09/23/22 02:18 Assessment & Plan Assessment & Plan (1) Schizoaffective disorder: Status: Acute Code(s): F25.9 - Schizoaffective disorder, unspecified Plan Patient is a 27 year old female (they/them) with hx of Schizoaffective d/o who presented to [facility] with paranoia, delusions throughout the day which resulted in them calling the police to report a bomb threat on their old apartment building secondary to medication non-compliance. Plan: CV 15 minute safety checks Continue home medications Obtain collateral Discuss starting on mood stabilizer 08/01: Pt presents disorganized with thought blocking. Observed responding to internal stimuli, keeping to self. Pt stated, I'm struggling but whatever. There are too many threats in my life right now and it's making me confused. I'm worried about a lot of people. I'm struggling to explain . Patient reports she believes she has been wire tapped by the news . med compliant. Increased: Geodon to 60mg PO BID 08/02: Pt presents disorganized with thought blocking; conversation is more fluid today after receiving Haldol 5mg PO once and Ativan 1mg PO once yesterday. Observed responding to internal stimuli, keeping to self. Patient denies AH and stated, I usually talk to myself. I'm making a lot of social mistakes here . Patient stated, I'm feeling stressed out. I don't know how to explain it . Patient reports visual hallucinations of a bunch of stuff but could not elaborate. Denies SI/HI. Given another one time dose of Haldol 5mg PO and Ativan 1mg PO. Continue current tx plan. 08/03: no current changes 08/04: no changes 08/05: Increased Geodon to 60mg PO BID. Patient presents alert and oriented today. She is able to state the name of the hospital, the correct month, year, president. However she does present with delusions stating, the last hospital I was at put snakes inside of me and I need to get them removed. I don't need to be on the psychiatric side; I need to be on the medical side of the hospital . Patient reports having visual hallucinations that are distracting but they are not negatively effecting my ability to function . Patient keeping to self, isolative to room. Patient will stop mid-sentence and become distracted by visual hallucinations; she did not elaborate on what they were. Patient reports she would be accepting with an increase in her Geodon and gave verbal permission for T/W to speak with her father. Patient encouraged to consider a JEFF; pt reports other providers have also brought up this topic and would like to consider this option. denies SI/HI/AH 08/06: Patient keeping to self, isolative to room. Presents with thought blocking, not eating unless prompted by staff. Refused medications despite staff encouragement. Observed responding to internal stimuli. Pt continues to believe there is a snake in her body that was placed by last hospitalization. Continue current tx plan. Consider filing Section 7&8 if pt does not improve d/t safety concerns. 08/08: Patient met with [facility] geriatric case manager and T/W today. Presents with thought blocking, paranoia, delusional. Believes we are trying to poison her with medications; believes people are spreading rumors about her. Unable to focus on conversation d/t perceptual disturbances. Observed looking around the room, talking to self, pt's name must be called multiple times before responding and stating what? I didn't hear you . She reports she would like to go to a penitentiary after being discharged from hospital. We discussed benefits of JEFF; T/W informed her that her father also mentioned that he would prefer patient to receive JEFF. Pt then shouted, My father would never say that! Someone is impersonating him! . Continues to believe there was a snake placed inside of her body by last hospital. Not eating unless prompted by staff. Refused medications despite staff encouragement. Will file on patient tomorrow if continues with medication noncompliance. 08/09: Patient continues to present disorganized and delusional. pt stated, I'm worried about the people in my life.The first night I was here,someone was outside my window and threatening me and my family . Pt did take Geodon 80mg PO today d/t pharmacy being able to obtain pill that has 80 printed on it; previous pills had various numbers on pill, which made patient believe she was being givan a very high dosage. She continues to refuse some of her medications. Observed responding to internal stimuli. Will not file on patient d/t starting to take Geodon; pt reports she plans on continuing to be medication compliant. 08/10:Continue plan of care encourage gradual increase 08/11: Continue plan of care with Geodon would try to get patient to accept long-acting injectable would benefit from getting better idea of patient's treatment history is an outpatient has been difficult clarify with patient cannot give the names of outpatient providers or clear treatment history. 08/12: Patient continues to present delusional and paranoid. Pt stated, I have stuff going on that's weird and I don't know what's behind it. Your coworker Adrienne is involved with something being outside my window, threatening me and my family. I don't trust the or police. Also someone was trying to make a horror movie of me at the last hospital while using the cameras . T/W reviewed medications with pt's request; pt stated, I don't need an antipsychotics. You were trying to give me really high dosages of Geodon, like 200 something but now it's correct . T/W explained her dosage was correct,and the manufacture writes numbers on some medications; pt continued to accuse T/W of giving her incorrect dosage. Observed responding to internal stimuli. 08/13: Patient continue to present delusional and paranoid. Refused her morning dose of Geodon. Pt reports she is worried that I have radiation poisoning and will get all of you sick . Patient believes she came to the hospital d/t [facility] being worried that I was going to get their employees in trouble for telling the police they were going to set off a bomb at my last apartment . Patient reports she spoke to her parents yesterday on the phone and feels upset since my parents are not taking the threats seriously and think I'm paranoid. I'm not paranoid! . Patient gives verbal consent to speak with her father but does not want us to speak with her mother. Pt perseverative about various safety concerns and threats. Will reach out to pts father for collateral. 08/14: Pt presents delusional, paranoid, thought blocking. Observed pacing room, talking to self. Responding to internal stimuli. T/W would call patients name, pt would stop, stare at T/W not respond and continue to pace. Pt refused Geodon yesterday and today. to call father today for collateral. 08/15/2023 PATIENT REMAINS GENERALLY NOT CONSISTENTLY TAKING MEDICATION FLORIDLY PARANOID DISORGANIZED THOUGHT BLOCKING AND DIFFICULTY WITH FUNCTIONING. PREOCCUPATION IS REGARDING SOMATIC DELUSIONAL MATERIAL WERE FEARS THAT SHE IS SOMEHOW BEING INJURED OR ATTACKED EITHER BY HOSPITAL OR OTHERS AND PREOCCUPIED WITH THAT SHE WAS ATTACKED ON MULTIPLE OCCASIONS ON OTHERS INCLUDING PAST HOSPITAL AND REPEATEDLY. DOES NOT SEEM TO UNDERSTAND THAT SHE HAS PSYCHIATRIC PSYCHOTIC ILLNESS NOR THAT SHE WOULD BENEFIT FROM ONGOING MEDICATION FOR HER PSYCHIATRIC ILLNESS NOR FOR HER HYPERTENSION GIVEN PATIENT'S MARKED LIMITATION FUNCTIONING FLORID DELUSIONAL CONSISTENT AND CONSTANT PREOCCUPATION MARKED LIMITATIONS IN FUNCTIONING THE SHE SHE WOULD BENEFIT FROM A COMMITMENT AND TREATMENT PLAN TO ADDRESS WHAT HAS BEEN AN ONGOING MARKED IMPAIRMENT IN HER ABILITY TO CARE FOR HERSELF OUTSIDE OF A HOSPITAL SETTING WOULD ULTIMATELY BENEFIT FROM A LONG-ACTING INJECTABLE 08/16- continues to present with complex paranoid and somatic delusions and auditory hallucinations having conversation with someone who is not there. Pt continues to decline medications including lisinopril when SBP in 180's. No capacity to make medical decisions. Impaired judment due to severity of psychiatric symptoms affecting her ability to care for herself. 08/17: Continue current regimen and plans. Continue to encourage in taking her medications 08/19: Conditional voluntary revoked and filed section 7. Continue to encourage taking medications. 08/20: Pt presents delusional, paranoid, thought blocking. Observed staring around room. Responding to internal stimuli. T/W would call patients name, pt would stop, stare at T/W not respond. Pt stated, I'm too poisoned to take anything. I heard some scary staff about the doctor here. I'm scared. I'm worried about the world . Pt did confirm that she is having visual hallucinations today; but would not elaborate. hearing scheduled will try to start long acting inj such as invega 08/21/2023 Patient seen in psychiatric follow-up. Patient anxious somatically preoccupied appears to be intentionally self induce vomiting when asked questions often feeling food is not somehow right medications not somehow right needs much encouragement to take care of herself food fluids intermittent medication acceptance does not seem capable of taking care of herself outside of a hospital setting at this time hearing for commitment and treatment plan schedule for tomorrow patient does not show any insight regarding need for antipsychotic treatment it is potentially stabilizing impact on her life. She did state that she had been stable on Risperdal in the past Patient educated on: diagnosis and medical condition Informed Consent: does not understand Reason for continued inpatient stay Substantial Risk for: inability to function, rapid decompensation and med/psych decompensation Time Spent With Patient Time: Total time managing care of this patient today ____ minutes.
[2023-08-21 18:00] VITALS: BP 132/78; PULSE 81; TEMP 36.6; O2SAT 98
--- NOTE | 2023-08-22 00:46 | PC.NURSE ---
Sally was observed engaging in repetitive behaviors throughout the evening. She was staring at her arm and repeatedly pulling on a certain hair. she was also seen walking around a table multiple times and each time she would touch the back of each chair, the trash and the wall as she walked by. she was also observed doing what looked like lip smacking and gum /cheek chewing. she was also seen grimacing multiple times. she remains thought blocked and continues to engage in self dialogue and although she denies auditory hallucinations she appears to continue to experience auditory and visual hallucinations. she refused HS medications but did accept prune juice for c/o constipation. monitor for safety, continue Plan of Care
[2023-08-22 08:08] VITALS: BP 128/88; PULSE 71; RESP 16; TEMP 36.2; O2SAT 99
[2023-08-22 12:01] LABS: Glucose, Whole Blood 108 mg/dL (60-115)
--- NOTE | 2023-08-22 14:30 | P.PNPSI_ITS ---
Subjective Subjective Date of Service: 08/22/23 Reason For Visit: pt exp delusions, pt denies si/hi, per ems Subjective Notes: Section 8 Healthcare Proxy: No Guardianship: No Interim History: Patient commitment hearing was today hearing held commitment granted and treatment order Patient anxious somewhat disorganized asking for for medicine for constipation tried to have conversation regarding treatment order and starting Invega Medication Compliance: No Mental Status Exam Mental Status Exam Patient Appearance: Disheveled Level of Consciousness: Awake Patient Behavior: Distractible Mood Description: Anxious and Apprehensive Affect Description: Labile and Apprehensive Ability to Follow Directions: Fair Memory Description: Working Impaired Hallucinations: Auditory Delusions: Paranoid Ideation and Bizarre Depressive Symptoms: Increased Anxiety, Increased Fatigue and Difficulty Concentrating Judgement: Poor Diagnostics Vital Signs (24Hr): Vital Signs - 24 hr 08/21/23 18:00 08/22/23 08:08 Temperature 98 F 97.2 F Pulse Rate 81 71 Respiratory Rate 16 Blood Pressure 132/78 128/88 Pulse Oximetry 98 99 Oxygen Delivery Method Room Air Room Air BMI result Body Mass Index 39.0 Labs 08/16/23 08:46 08/18/23 08:19 Labs: Laboratory Results - last 48 hr 08/22/23 11:56 POC Glucose 108 Medications Medications Current Medications Acetaminophen (Acetaminophen 325 Mg Tablet) 650 mg PO Q6H PRN PRN Reason: Headache/Pain Mild Scale (1-3) Al Hydroxide/Mg Hydroxide (Magnesium Hydrox/Alum Hydrox 30 Ml Oral.Susp) 30 ml PO Q6H PRN PRN Reason: Heartburn/Nausea Last Admin: 08/17/23 20:30 Dose: 30 ml Albuterol Sulfate (Albuterol Sulfate 90 Mcg 8 Gm Inhaler) 2 puff INHALE RQ4H PRN PRN Reason: short of breath Clonidine HCl (Clonidine Hcl 0.1 Mg Tablet) 0.1 mg PO BID PRN; Protocol PRN Reason: Anxiety Last Admin: 08/01/23 22:12 Dose: 0.1 mg Hydroxyzine HCl (Hydroxyzine Hcl 25 Mg Tablet) 25 mg PO Q6H PRN PRN Reason: Anxiety Last Admin: 07/31/23 17:01 Dose: 25 mg Lisinopril (Lisinopril 2.5 Mg Tablet) 2.5 mg PO DAILY [facility]; Protocol Last Admin: 08/22/23 09:54 Dose: Not Given Magnesium Hydroxide (Milk Of Magnesia 30 Ml Oral.Susp) 30 ml PO DAILY PRN PRN Reason: Constipation Metformin HCl (Metformin Hcl 1,000 Mg Tablet) 1,000 mg PO BID [facility] Last Admin: 08/22/23 09:53 Dose: Not Given Olanzapine (Olanzapine 5 Mg Tablet) 5 mg PO TID PRN PRN Reason: agitation Ondansetron HCl (Ondansetron Odt 4 Mg Tab.Rapdis) 4 mg TRANSLINGU Q6H PRN PRN Reason: Nausea and Vomiting Polyethylene Glycol (Polyethylene Glycol 3350 17 Gm Powd.Pack) 17 gm PO DAILY PRN PRN Reason: Constipation Propranolol HCl (Propranolol Hcl 10 Mg Tablet) 10 mg PO BID [facility]; Protocol Last Admin: 08/22/23 09:51 Dose: Not Given Trazodone HCl (Trazodone Hcl 50 Mg Tablet) 50 mg PO BEDTIME MRX1 PRN PRN Reason: Insomnia Ziprasidone (Ziprasidone 80 Mg Capsule) 80 mg PO DAILY [facility] Last Admin: 08/22/23 09:50 Dose: Not Given Ziprasidone (Ziprasidone 80 Mg Capsule) 80 mg PO DAILY@1700 [facility] Last Admin: 08/21/23 17:50 Dose: Not Given Allergies Allergies Allergy/AdvReac Type Severity Reaction Status Date / Time clotrimazole Allergy Severe Rash Verified 09/23/22 02:18 Assessment & Plan Assessment & Plan (1) Schizoaffective disorder: Status: Acute Code(s): F25.9 - Schizoaffective disorder, unspecified Plan Patient is a 27 year old female (they/them) with hx of Schizoaffective d/o who presented to [facility] with paranoia, delusions throughout the day which resulted in them calling the police to report a bomb threat on their old apartment building secondary to medication non-compliance. Plan: CV 15 minute safety checks Continue home medications Obtain collateral Discuss starting on mood stabilizer 08/22/2023 Will try to have conversation regarding starting Invega monitor hemoglobin A1c who patient now here on commitment treatment plan ordered Will try to engage in treatment Informed Consent: does not understand Reason for continued inpatient stay Substantial Risk for: inability to function and rapid decompensation Time Spent With Patient Time: Total time managing care of this patient today __60__ minutes.
[2023-08-22 20:05] VITALS: BP 154/75; PULSE 86; RESP 18; TEMP 36.1; O2SAT 96
[2023-08-23 06:00] VITALS: BP 135/84; PULSE 71; TEMP 36.8; O2SAT 96
[2023-08-23] MEDS: risperiDONE 1 MG TABLET PO ×2 (11:06→21:17)
--- NOTE | 2023-08-23 17:21 | HO.PSYCHPN ---
Subjective Subjective Date of Service: 08/23/23 Reason For Visit: pt exp delusions, pt denies si/hi, per ems Subjective Notes: Section 8 Interim History: pt started on risperadol did take first dose im zyprexa if refuses focused on multiple somatic delusions anxiety Side effects from medications: No Attending Groups: No Mental Status Exam Mental Status Exam Patient Appearance: Disheveled Level of Consciousness: Awake Patient Behavior: Distractible Mood Description: Anxious and Apprehensive Affect Description: Labile and Apprehensive Ability to Follow Directions: Fair Memory Description: Working Impaired Hallucinations: Auditory Delusions: Paranoid Ideation and Bizarre Depressive Symptoms: Increased Anxiety, Increased Fatigue and Difficulty Concentrating Judgement: Poor Diagnostics Vital Signs (24Hr): Vital Signs - 24 hr 08/22/23 20:05 08/23/23 06:00 Temperature 96.9 F 98.2 F Pulse Rate 86 71 Respiratory Rate 18 Blood Pressure 154/75 H 135/84 Pulse Oximetry 96 96 Oxygen Delivery Method Room Air Room Air BMI result Body Mass Index 39.0 Labs 08/16/23 08:46 08/18/23 08:19 Labs: Laboratory Results - last 48 hr 08/22/23 11:56 POC Glucose 108 Medications Medications Current Medications Acetaminophen (Acetaminophen 325 Mg Tablet) 650 mg PO Q6H PRN PRN Reason: Headache/Pain Mild Scale (1-3) Al Hydroxide/Mg Hydroxide (Magnesium Hydrox/Alum Hydrox 30 Ml Oral.Susp) 30 ml PO Q6H PRN PRN Reason: Heartburn/Nausea Last Admin: 08/17/23 20:30 Dose: 30 ml Albuterol Sulfate (Albuterol Sulfate 90 Mcg 8 Gm Inhaler) 2 puff INHALE RQ4H PRN PRN Reason: short of breath Clonidine HCl (Clonidine Hcl 0.1 Mg Tablet) 0.1 mg PO BID PRN; Protocol PRN Reason: Anxiety Last Admin: 08/01/23 22:12 Dose: 0.1 mg Hydroxyzine HCl (Hydroxyzine Hcl 25 Mg Tablet) 25 mg PO Q6H PRN PRN Reason: Anxiety Last Admin: 07/31/23 17:01 Dose: 25 mg Lisinopril (Lisinopril 2.5 Mg Tablet) 2.5 mg PO DAILY [facility]; Protocol Last Admin: 08/23/23 10:06 Dose: Not Given Magnesium Hydroxide (Milk Of Magnesia 30 Ml Oral.Susp) 30 ml PO DAILY PRN PRN Reason: Constipation Metformin HCl (Metformin Hcl 1,000 Mg Tablet) 1,000 mg PO BID [facility] Last Admin: 08/23/23 10:06 Dose: Not Given Olanzapine (Olanzapine 10 Mg Vial) 5 mg IM BID PRN PRN Reason: IF REFUSES PO RISPERADOL Ondansetron HCl (Ondansetron Odt 4 Mg Tab.Rapdis) 4 mg TRANSLINGU Q6H PRN PRN Reason: Nausea and Vomiting Polyethylene Glycol (Polyethylene Glycol 3350 17 Gm Powd.Pack) 17 gm PO DAILY PRN PRN Reason: Constipation Propranolol HCl (Propranolol Hcl 10 Mg Tablet) 10 mg PO BID [facility]; Protocol Last Admin: 08/23/23 10:06 Dose: Not Given Risperidone (Risperidone 1 Mg Tablet) 1 mg PO BID [facility] Senna/Docusate Sodium (Sennosides/Docusate Sodium Tablet) 1 tab PO BEDTIME [facility] Last Admin: 08/22/23 20:59 Dose: Not Given Trazodone HCl (Trazodone Hcl 50 Mg Tablet) 50 mg PO BEDTIME MRX1 PRN PRN Reason: Insomnia Allergies Allergies Allergy/AdvReac Type Severity Reaction Status Date / Time clotrimazole Allergy Severe Rash Verified 09/23/22 02:18 Assessment & Plan Assessment & Plan (1) Schizoaffective disorder: Status: Acute Code(s): F25.9 - Schizoaffective disorder, unspecified Plan Patient is a 27 year old female (they/them) with hx of Schizoaffective d/o who presented to [facility] with paranoia, delusions throughout the day which resulted in them calling the police to report a bomb threat on their old apartment building secondary to medication non-compliance. Plan: CV 15 minute safety checks Continue home medications Obtain collateral Discuss starting on mood stabilizer 08/22/2023 Will try to have conversation regarding starting Invega monitor hemoglobin A1c who patient now here on commitment treatment plan ordered Will try to engage in treatment 08/23/23 pt agreeable to risperadol can eventually convert to sustena on sec 8 tx plan started Patient educated on: medication risk/benefits Reason for continued inpatient stay Substantial Risk for: inability to function and rapid decompensation Time Spent With Patient Time: Total time managing care of this patient today ____ minutes.
[2023-08-23 21:00] VITALS: BP 134/81; PULSE 101; TEMP 36.7; O2SAT 98
[2023-08-24 08:00] VITALS: BP 129/78; PULSE 75; RESP 18; TEMP 36.6; O2SAT 75
[2023-08-24] MEDS: risperiDONE 1 MG TABLET PO ×2 (08:32→20:21)
--- NOTE | 2023-08-24 15:21 | HO.PSYCHPN ---
Subjective Subjective Date of Service: 08/24/23 Reason For Visit: pt exp delusions, pt denies si/hi, per ems Subjective Notes: Section 8 Healthcare Proxy: No Guardianship: No Medical Problems Affecting Mental Status: No Interim History: Some reluctance to take meds, still suspicious. Noted to be responding to internal stimuli. Eating and sleeping OK. States she got some relief from constipation in the last 2 days. Medication Compliance: Yes Side effects from medications: No Attending Groups: No Review of Systems Acute medical concerns: No Medical Review of Systems: unchanged Mental Status Exam Mental Status Exam Patient Appearance: Disheveled Patient Orientation: Person, Place and Time Level of Consciousness: Alert Patient Behavior: Suspicious and Isolative Mood Description: Anxious Affect Description: Withdrawn Patient Cognition Impaired: No Ability to Follow Directions: Fair Speech Pattern: Long Pauses Memory Description: Intact Hallucinations: Auditory (denies voices but appears to be responding to internal stimuli) Delusions: Paranoid Ideation Thought Process: Slowed Thinking Thought Content: positive for Poverty of Content Depressive Symptoms: Increased Anxiety Judgement: Fair Diagnostics Vital Signs (24Hr): Vital Signs - 24 hr 08/23/23 21:00 08/24/23 08:00 Temperature 98.0 F 97.8 F Pulse Rate 101 H 75 Respiratory Rate 18 Blood Pressure 134/81 129/78 Pulse Oximetry 98 75 L Oxygen Delivery Method Room Air Room Air BMI result Body Mass Index 39.0 Labs 08/16/23 08:46 08/18/23 08:19 Medications Medications Current Medications Acetaminophen (Acetaminophen 325 Mg Tablet) 650 mg PO Q6H PRN PRN Reason: Headache/Pain Mild Scale (1-3) Al Hydroxide/Mg Hydroxide (Magnesium Hydrox/Alum Hydrox 30 Ml Oral.Susp) 30 ml PO Q6H PRN PRN Reason: Heartburn/Nausea Last Admin: 08/17/23 20:30 Dose: 30 ml Albuterol Sulfate (Albuterol Sulfate 90 Mcg 8 Gm Inhaler) 2 puff INHALE RQ4H PRN PRN Reason: short of breath Clonidine HCl (Clonidine Hcl 0.1 Mg Tablet) 0.1 mg PO BID PRN; Protocol PRN Reason: Anxiety Last Admin: 08/01/23 22:12 Dose: 0.1 mg Hydroxyzine HCl (Hydroxyzine Hcl 25 Mg Tablet) 25 mg PO Q6H PRN PRN Reason: Anxiety Last Admin: 07/31/23 17:01 Dose: 25 mg Lisinopril (Lisinopril 2.5 Mg Tablet) 2.5 mg PO DAILY [facility]; Protocol Last Admin: 08/24/23 08:59 Dose: Not Given Magnesium Hydroxide (Milk Of Magnesia 30 Ml Oral.Susp) 30 ml PO DAILY PRN PRN Reason: Constipation Metformin HCl (Metformin Hcl 1,000 Mg Tablet) 1,000 mg PO BID [facility] Last Admin: 08/24/23 08:59 Dose: Not Given Olanzapine (Olanzapine 10 Mg Vial) 5 mg IM BID PRN PRN Reason: IF REFUSES PO RISPERADOL Ondansetron HCl (Ondansetron Odt 4 Mg Tab.Rapdis) 4 mg TRANSLINGU Q6H PRN PRN Reason: Nausea and Vomiting Polyethylene Glycol (Polyethylene Glycol 3350 17 Gm Powd.Pack) 17 gm PO DAILY PRN PRN Reason: Constipation Propranolol HCl (Propranolol Hcl 10 Mg Tablet) 10 mg PO BID [facility]; Protocol Last Admin: 08/24/23 08:59 Dose: Not Given Risperidone (Risperidone 1 Mg Tablet) 1 mg PO BID [facility] Last Admin: 08/24/23 08:32 Dose: 1 mg Senna/Docusate Sodium (Sennosides/Docusate Sodium Tablet) 1 tab PO BEDTIME [facility] Last Admin: 08/23/23 21:36 Dose: Not Given Trazodone HCl (Trazodone Hcl 50 Mg Tablet) 50 mg PO BEDTIME MRX1 PRN PRN Reason: Insomnia Allergies Allergies Allergy/AdvReac Type Severity Reaction Status Date / Time clotrimazole Allergy Severe Rash Verified 09/23/22 02:18 Assessment & Plan Assessment & Plan (1) Schizoaffective disorder: Status: Acute Code(s): F25.9 - Schizoaffective disorder, unspecified Plan Patient is a 27 year old female (they/them) with hx of Schizoaffective d/o who presented to [facility] with paranoia, delusions throughout the day which resulted in them calling the police to report a bomb threat on their old apartment building secondary to medication non-compliance. Plan: CV 15 minute safety checks Continue home medications Obtain collateral Discuss starting on mood stabilizer 08/22/2023 Will try to have conversation regarding starting Invega monitor hemoglobin A1c who patient now here on commitment treatment plan ordered Will try to engage in treatment 08/23/23 pt agreeable to risperadol can eventually convert to sustena on sec 8 tx plan started 08/24/23: no changes, just started risperdal Reason for continued inpatient stay Substantial Risk for: inability to function Time Spent With Patient Time: Total time managing care of this patient today ____ minutes.
[2023-08-24 20:24] VITALS: BP 160/86; PULSE 111; TEMP 36.6; O2SAT 96
[2023-08-25 08:31] LABS: Anion Gap 12 (12-20); Blood Urea Nitrogen 7 mg/dL (9-16); Calcium 9.2 mg/dL (8.4-10.2); Carbon Dioxide 25 mmol/L (22-29); Chloride 105 mmol/L (96-108); Creatinine Clr Calc Pharmacy 120.4; Estimated Glomerular Filt Rate > 60; Glucose Random 112 mg/dL (60-115); Potassium 3.5 mmol/L (3.3-5.1); Sodium 138 mmol/L (135-145)
[2023-08-25 08:49] VITALS: BP 133/83; PULSE 88; RESP 18; TEMP 36.2; O2SAT 96
[2023-08-25] MEDS: risperiDONE 1 MG TABLET PO (08:52)
--- NOTE | 2023-08-25 14:13 | P.PNPSI_ITS ---
Subjective Subjective Date of Service: 08/25/23 Reason For Visit: pt exp delusions, pt denies si/hi, per ems Subjective Notes: Conditional Voluntary Guardianship: No Medical Problems Affecting Mental Status: No Interim History: Wanted to show me a small piece of canvas that she had in her room. It had stains on it which she thought was blood and that this was evidence that she had radioactive poisoning. Also wanted me to see this due to concerns that others may have been poisoned. Patient not able to express any symptoms that she is experiencing nor can she name any motive for such poisoning. Medication Compliance: Yes Side effects from medications: No Attending Groups: No Review of Systems Acute medical concerns: No Medical Review of Systems: unchanged Mental Status Exam Mental Status Exam Patient Appearance: Disheveled Patient Orientation: Place, Time and Situation Level of Consciousness: Alert Patient Behavior: Poor Eye Contact Mood Description: Anxious Affect Description: Suspicious Patient Cognition Impaired: No Ability to Follow Directions: Fair Speech Pattern: Clear and Long Pauses Memory Description: Intact Hallucinations: Auditory (denies voices but internal stimuli suspected) Delusions: Paranoid Ideation Thought Process: Evasive Thought Content: positive for Perseveration and positive for Disorganized Judgement: Fair Judgement and Insight: Able to entertain the idea that the stains on the canvas might be there for some other reason but then returns to paranoid delusion Diagnostics Vital Signs (24Hr): Vital Signs - 24 hr 08/24/23 20:24 08/25/23 08:49 Temperature 97.8 F 97.2 F Pulse Rate 111 H 88 Respiratory Rate 18 Blood Pressure 160/86 H 133/83 Pulse Oximetry 96 96 Oxygen Delivery Method Room Air Room Air BMI result Body Mass Index 39.0 Labs 08/16/23 08:46 08/25/23 07:42 Labs: Laboratory Results - last 48 hr 08/25/23 07:42 Sodium 138 Potassium 3.5 Chloride 105 Carbon Dioxide 25 Anion Gap 12 BUN 7 L Creatinine 0.72 Estim Creat Clear Calc 120.4 Estimated GFR > 60 Random Glucose 112 Calcium 9.2 Medications Medications Current Medications Acetaminophen (Acetaminophen 325 Mg Tablet) 650 mg PO Q6H PRN PRN Reason: Headache/Pain Mild Scale (1-3) Al Hydroxide/Mg Hydroxide (Magnesium Hydrox/Alum Hydrox 30 Ml Oral.Susp) 30 ml PO Q6H PRN PRN Reason: Heartburn/Nausea Last Admin: 08/17/23 20:30 Dose: 30 ml Albuterol Sulfate (Albuterol Sulfate 90 Mcg 8 Gm Inhaler) 2 puff INHALE RQ4H PRN PRN Reason: short of breath Clonidine HCl (Clonidine Hcl 0.1 Mg Tablet) 0.1 mg PO BID PRN; Protocol PRN Reason: Anxiety Last Admin: 08/01/23 22:12 Dose: 0.1 mg Hydroxyzine HCl (Hydroxyzine Hcl 25 Mg Tablet) 25 mg PO Q6H PRN PRN Reason: Anxiety Last Admin: 07/31/23 17:01 Dose: 25 mg Lisinopril (Lisinopril 2.5 Mg Tablet) 2.5 mg PO DAILY [facility]; Protocol Last Admin: 08/25/23 08:54 Dose: Not Given Magnesium Hydroxide (Milk Of Magnesia 30 Ml Oral.Susp) 30 ml PO DAILY PRN PRN Reason: Constipation Metformin HCl (Metformin Hcl 1,000 Mg Tablet) 1,000 mg PO BID [facility] Last Admin: 08/25/23 08:53 Dose: Not Given Olanzapine (Olanzapine 10 Mg Vial) 5 mg IM BID PRN PRN Reason: IF REFUSES PO RISPERADOL Ondansetron HCl (Ondansetron Odt 4 Mg Tab.Rapdis) 4 mg TRANSLINGU Q6H PRN PRN Reason: Nausea and Vomiting Polyethylene Glycol (Polyethylene Glycol 3350 17 Gm Powd.Pack) 17 gm PO DAILY PRN PRN Reason: Constipation Propranolol HCl (Propranolol Hcl 10 Mg Tablet) 10 mg PO BID [facility]; Protocol Last Admin: 08/25/23 08:53 Dose: Not Given Risperidone (Risperidone 1 Mg Tablet) 1 mg PO BID [facility] Last Admin: 08/25/23 08:52 Dose: 1 mg Senna/Docusate Sodium (Sennosides/Docusate Sodium Tablet) 1 tab PO BEDTIME [facility] Last Admin: 08/24/23 20:26 Dose: Not Given Trazodone HCl (Trazodone Hcl 50 Mg Tablet) 50 mg PO BEDTIME MRX1 PRN PRN Reason: Insomnia Allergies Allergies Allergy/AdvReac Type Severity Reaction Status Date / Time clotrimazole Allergy Severe Rash Verified 09/23/22 02:18 Assessment & Plan Assessment & Plan (1) Schizoaffective disorder: Status: Acute Code(s): F25.9 - Schizoaffective disorder, unspecified Plan Patient is a 27 year old female (they/them) with hx of Schizoaffective d/o who presented to [facility] with paranoia, delusions throughout the day which resulted in them calling the police to report a bomb threat on their old apartment building secondary to medication non-compliance. Plan: CV 15 minute safety checks Continue home medications Obtain collateral Discuss starting on mood stabilizer 08/22/2023 Will try to have conversation regarding starting Invega monitor hemoglobin A1c who patient now here on commitment treatment plan ordered Will try to engage in treatment 08/23/23 pt agreeable to risperadol can eventually convert to sustena on sec 8 tx plan started 08/24/23: no changes, just started risperdal 08/25/23:increase risperdal to 2 mg bid Reason for continued inpatient stay Substantial Risk for: inability to function Time Spent With Patient Time: Total time managing care of this patient today ____ minutes.
[2023-08-25 21:25] VITALS: BP 141/84; PULSE 88; RESP 18; TEMP 36.6; O2SAT 97
[2023-08-25] MEDS: risperiDONE 2 MG TABLET PO (21:52)
[2023-08-26 08:30] VITALS: BP 152/80; PULSE 84; RESP 16; TEMP 36.3; O2SAT 97
[2023-08-26] MEDS: risperiDONE 2 MG TABLET PO ×2 (08:40→21:32)
[2023-08-26] MEDS: Propranolol HCL 10 MG TABLET PO ×2 (08:44→21:32)
--- NOTE | 2023-08-26 09:52 | HO.PSYCHPN ---
Subjective Subjective Date of Service: 08/26/23 Reason For Visit: pt exp delusions, pt denies si/hi, per ems Subjective Notes: Section 8 Interim History: Reviewed in team and . Patient continues to present delusional and paranoid. Pt stated, someone recently released a book about me. I haven't read it yet . Observed responding to internal stimuil; however denies AH/VH. Medication Compliance: Intermittent Side effects from medications: No Attending Groups: No Review of Systems Constitutional: Reports as per HPI Eyes: Reports as per HPI Reports as per HPI Cardiovascular: Reports as per HPI Respiratory: Reports as per HPI Gastrointestinal: Reports as per HPI Genitourinary: Reports as per HPI Musculoskeletal: Reports as per HPI Skin/Breast: Reports as per HPI Reports as per HPI Psychiatric: Reports as per HPI Endocrine: Reports as per HPI Hematologic/Lymphatic: Reports as per HPI Allergic/Immunologic: Reports as per HPI Mental Status Exam Mental Status Exam Narrative: Pt behavior is guarded and calm; dressed in casual attire with unkempt; mood is described as stressed ; eye contact appropriate; Speech is normal rate, volume and prosody and not pressured; thought blocking, preservative; denies SI/HI. Observed responding to internal stimuli; however denies AH/VH. Patients insight and judgment are poor. Diagnostics Vital Signs (24Hr): Vital Signs - 24 hr 08/25/23 21:25 08/26/23 08:30 Temperature 97.8 F 97.3 F Pulse Rate 88 84 Respiratory Rate 18 16 Blood Pressure 141/84 H 152/80 H Pulse Oximetry 97 97 Oxygen Delivery Method Room Air Room Air BMI result Body Mass Index 39.0 Labs 08/16/23 08:46 08/25/23 07:42 Labs: Laboratory Results - last 48 hr 08/25/23 07:42 Sodium 138 Potassium 3.5 Chloride 105 Carbon Dioxide 25 Anion Gap 12 BUN 7 L Creatinine 0.72 Estim Creat Clear Calc 120.4 Estimated GFR > 60 Random Glucose 112 Calcium 9.2 Medications Medications Current Medications Acetaminophen (Acetaminophen 325 Mg Tablet) 650 mg PO Q6H PRN PRN Reason: Headache/Pain Mild Scale (1-3) Al Hydroxide/Mg Hydroxide (Magnesium Hydrox/Alum Hydrox 30 Ml Oral.Susp) 30 ml PO Q6H PRN PRN Reason: Heartburn/Nausea Last Admin: 08/17/23 20:30 Dose: 30 ml Albuterol Sulfate (Albuterol Sulfate 90 Mcg 8 Gm Inhaler) 2 puff INHALE RQ4H PRN PRN Reason: short of breath Clonidine HCl (Clonidine Hcl 0.1 Mg Tablet) 0.1 mg PO BID PRN; Protocol PRN Reason: Anxiety Last Admin: 08/01/23 22:12 Dose: 0.1 mg Hydroxyzine HCl (Hydroxyzine Hcl 25 Mg Tablet) 25 mg PO Q6H PRN PRN Reason: Anxiety Last Admin: 07/31/23 17:01 Dose: 25 mg Lisinopril (Lisinopril 2.5 Mg Tablet) 2.5 mg PO DAILY [facility]; Protocol Last Admin: 08/25/23 08:54 Dose: Not Given Magnesium Hydroxide (Milk Of Magnesia 30 Ml Oral.Susp) 30 ml PO DAILY PRN PRN Reason: Constipation Metformin HCl (Metformin Hcl 1,000 Mg Tablet) 1,000 mg PO BID [facility] Last Admin: 08/26/23 08:45 Dose: Not Given Olanzapine (Olanzapine 10 Mg Vial) 5 mg IM BID PRN PRN Reason: IF REFUSES PO RISPERADOL Ondansetron HCl (Ondansetron Odt 4 Mg Tab.Rapdis) 4 mg TRANSLINGU Q6H PRN PRN Reason: Nausea and Vomiting Polyethylene Glycol (Polyethylene Glycol 3350 17 Gm Powd.Pack) 17 gm PO DAILY PRN PRN Reason: Constipation Propranolol HCl (Propranolol Hcl 10 Mg Tablet) 10 mg PO BID [facility]; Protocol Last Admin: 08/26/23 08:44 Dose: 10 mg Risperidone (Risperidone 2 Mg Tablet) 2 mg PO BID [facility] Last Admin: 08/26/23 08:40 Dose: 2 mg Senna/Docusate Sodium (Sennosides/Docusate Sodium Tablet) 1 tab PO BEDTIME [facility] Last Admin: 08/25/23 21:52 Dose: Not Given Trazodone HCl (Trazodone Hcl 50 Mg Tablet) 50 mg PO BEDTIME MRX1 PRN PRN Reason: Insomnia Allergies Allergies Allergy/AdvReac Type Severity Reaction Status Date / Time clotrimazole Allergy Severe Rash Verified 09/23/22 02:18 Assessment & Plan Assessment & Plan (1) Schizoaffective disorder: Status: Acute Code(s): F25.9 - Schizoaffective disorder, unspecified Plan Patient is a 27 year old female (they/them) with hx of Schizoaffective d/o who presented to [facility] with paranoia, delusions throughout the day which resulted in them calling the police to report a bomb threat on their old apartment building secondary to medication non-compliance. Plan: CV 15 minute safety checks Continue home medications Obtain collateral Discuss starting on mood stabilizer 08/01: Pt presents disorganized with thought blocking. Observed responding to internal stimuli, keeping to self. Pt stated, I'm struggling but whatever. There are too many threats in my life right now and it's making me confused. I'm worried about a lot of people. I'm struggling to explain . Patient reports she believes she has been wire tapped by the news . med compliant. Increased: Geodon to 60mg PO BID 08/02: Pt presents disorganized with thought blocking; conversation is more fluid today after receiving Haldol 5mg PO once and Ativan 1mg PO once yesterday. Observed responding to internal stimuli, keeping to self. Patient denies AH and stated, I usually talk to myself. I'm making a lot of social mistakes here . Patient stated, I'm feeling stressed out. I don't know how to explain it . Patient reports visual hallucinations of a bunch of stuff but could not elaborate. Denies SI/HI. Given another one time dose of Haldol 5mg PO and Ativan 1mg PO. Continue current tx plan. 08/03: no current changes 08/04: no changes 08/05: Increased Geodon to 60mg PO BID. Patient presents alert and oriented today. She is able to state the name of the hospital, the correct month, year, president. However she does present with delusions stating, the last hospital I was at put snakes inside of me and I need to get them removed. I don't need to be on the psychiatric side; I need to be on the medical side of the hospital . Patient reports having visual hallucinations that are distracting but they are not negatively effecting my ability to function . Patient keeping to self, isolative to room. Patient will stop mid-sentence and become distracted by visual hallucinations; she did not elaborate on what they were. Patient reports she would be accepting with an increase in her Geodon and gave verbal permission for T/W to speak with her father. Patient encouraged to consider a [facility]; pt reports other providers have also brought up this topic and would like to consider this option. denies SI/HI/AH 08/06: Patient keeping to self, isolative to room. Presents with thought blocking, not eating unless prompted by staff. Refused medications despite staff encouragement. Observed responding to internal stimuli. Pt continues to believe there is a snake in her body that was placed by last hospitalization. Continue current tx plan. Consider filing Section 7&8 if pt does not improve d/t safety concerns. 08/08: Patient met with [facility] porter sample case and T/W today. Presents with thought blocking, paranoia, delusional. Believes we are trying to poison her with medications; believes people are spreading rumors about her. Unable to focus on conversation d/t perceptual disturbances. Observed looking around the room, talking to self, pt's name must be called multiple times before responding and stating what? I didn't hear you . She reports she would like to go to a senior care after being discharged from hospital. We discussed benefits of [facility]; T/W informed her that her father also mentioned that he would prefer patient to receive [facility]. Pt then shouted, My father would never say that! Someone is impersonating him! . Continues to believe there was a snake placed inside of her body by last hospital. Not eating unless prompted by staff. Refused medications despite staff encouragement. Will file on patient tomorrow if continues with medication noncompliance. 08/09: Patient continues to present disorganized and delusional. pt stated, I'm worried about the people in my life.The first night I was here,someone was outside my window and threatening me and my family . Pt did take Geodon 80mg PO today d/t pharmacy being able to obtain pill that has 80 printed on it; previous pills had various numbers on pill, which made patient believe she was being givan a very high dosage. She continues to refuse some of her medications. Observed responding to internal stimuli. Will not file on patient d/t starting to take Geodon; pt reports she plans on continuing to be medication compliant. 08/10:Continue plan of care encourage gradual increase 08/11: Continue plan of care with [facility] would try to get patient to accept long-acting injectable would benefit from getting better idea of patient's treatment history is an outpatient has been difficult clarify with patient cannot give the names of outpatient providers or clear treatment history. 08/12: Patient continues to present delusional and paranoid. Pt stated, I have stuff going on that's weird and I don't know what's behind it. Your coworker Adrienne is involved with something being outside my window, threatening me and my family. I don't trust the or police. Also someone was trying to make a horror movie of me at the last hospital while using the cameras . T/W reviewed medications with pt's request; pt stated, I don't need an antipsychotics. You were trying to give me really high dosages of Geodon, like 200 something but now it's correct . T/W explained her dosage was correct,and the manufacture writes numbers on some medications; pt continued to accuse T/W of giving her incorrect dosage. Observed responding to internal stimuli. 08/13: Patient continue to present delusional and paranoid. Refused her morning dose of Geodon. Pt reports she is worried that I have radiation poisoning and will get all of you sick . Patient believes she came to the hospital d/t [facility] being worried that I was going to get their employees in trouble for telling the police they were going to set off a bomb at my last apartment . Patient reports she spoke to her parents yesterday on the phone and feels upset since my parents are not taking the threats seriously and think I'm paranoid. I'm not paranoid! . Patient gives verbal consent to speak with her father but does not want us to speak with her mother. Pt perseverative about various safety concerns and threats. Will reach out to pts father for collateral. 08/14: Pt presents delusional, paranoid, thought blocking. Observed pacing room, talking to self. Responding to internal stimuli. T/W would call patients name, pt would stop, stare at T/W not respond and continue to pace. Pt refused Geodon yesterday and today. to call father today for collateral. 08/15/2023 PATIENT REMAINS GENERALLY NOT CONSISTENTLY TAKING MEDICATION FLORIDLY PARANOID DISORGANIZED THOUGHT BLOCKING AND DIFFICULTY WITH FUNCTIONING. PREOCCUPATION IS REGARDING SOMATIC DELUSIONAL MATERIAL WERE FEARS THAT SHE IS SOMEHOW BEING INJURED OR ATTACKED EITHER BY HOSPITAL OR OTHERS AND PREOCCUPIED WITH THAT SHE WAS ATTACKED ON MULTIPLE OCCASIONS ON OTHERS INCLUDING PAST HOSPITAL AND REPEATEDLY. DOES NOT SEEM TO UNDERSTAND THAT SHE HAS PSYCHIATRIC PSYCHOTIC ILLNESS NOR THAT SHE WOULD BENEFIT FROM ONGOING MEDICATION FOR HER PSYCHIATRIC ILLNESS NOR FOR HER HYPERTENSION GIVEN PATIENT'S MARKED LIMITATION FUNCTIONING FLORID DELUSIONAL CONSISTENT AND CONSTANT PREOCCUPATION MARKED LIMITATIONS IN FUNCTIONING THE SHE SHE WOULD BENEFIT FROM A COMMITMENT AND TREATMENT PLAN TO ADDRESS WHAT HAS BEEN AN ONGOING MARKED IMPAIRMENT IN HER ABILITY TO CARE FOR HERSELF OUTSIDE OF A HOSPITAL SETTING WOULD ULTIMATELY BENEFIT FROM A LONG-ACTING INJECTABLE 08/16- continues to present with complex paranoid and somatic delusions and auditory hallucinations having conversation with someone who is not there. Pt continues to decline medications including lisinopril when SBP in 180's. No capacity to make medical decisions. Impaired judment due to severity of psychiatric symptoms affecting her ability to care for herself. 08/17: Continue current regimen and plans. Continue to encourage in taking her medications 08/19: Conditional voluntary revoked and filed section 7. Continue to encourage taking medications. 08/20: Pt presents delusional, paranoid, thought blocking. Observed staring around room. Responding to internal stimuli. T/W would call patients name, pt would stop, stare at T/W not respond. Pt stated, I'm too poisoned to take anything. I heard some scary staff about the doctor here. I'm scared. I'm worried about the world . Pt did confirm that she is having visual hallucinations today; but would not elaborate. hearing scheduled will try to start long acting inj such as invega 08/21: Patient seen in psychiatric follow-up. Patient anxious somatically preoccupied appears to be intentionally self induce vomiting when asked questions often feeling food is not somehow right medications not somehow right needs much encouragement to take care of herself food fluids intermittent medication acceptance does not seem capable of taking care of herself outside of a hospital setting at this time hearing for commitment and treatment plan schedule for tomorrow patient does not show any insight regarding need for antipsychotic treatment it is potentially stabilizing impact on her life. She did state that she had been stable on Risperdal in the past 08/22:Will try to have conversation regarding starting Invega monitor hemoglobin A1c who patient now here on commitment treatment plan ordered. Will try to engage in treatment 08/23: pt agreeable to risperadol can eventually convert to sustena. on sec 8 tx plan started 08/24: no changes, just started risperdal 08/25:increase risperdal to 2 mg bid 08/26: Patient continues to present delusional and paranoid. Pt stated, someone recently released a book about me. I haven't read it yet . Observed responding to internal stimuil; however denies AH/VH. Continue current tx plan. Patient educated on: diagnosis and medication risk/benefits Informed Consent: understands and further education needed Reason for continued inpatient stay Substantial Risk for: med/psych decompensation Time Spent With Patient Time: Total time managing care of this patient today _30___ minutes.
[2023-08-26 18:00] VITALS: BP 128/77; PULSE 73; RESP 18; TEMP 37.1; O2SAT 99
[2023-08-26] MEDS: metFORMIN HCl 1,000 MG TABLET 1000 MG PO (21:31)
[2023-08-27 06:00] VITALS: BP 103/55; PULSE 66; TEMP 36.6; O2SAT 94
[2023-08-27] MEDS: Propranolol HCL 10 MG TABLET PO ×2 (08:57→20:22)
[2023-08-27] MEDS: risperiDONE 2 MG TABLET PO ×2 (08:57→21:03)
[2023-08-27] MEDS: metFORMIN HCl 1,000 MG TABLET 1000 MG PO ×2 (08:57→20:23)
[2023-08-27] MEDS: lisinopriL 2.5 MG TABLET PO (08:57)
--- NOTE | 2023-08-27 09:27 | HO.PSYCHPN ---
Subjective Subjective Date of Service: 08/27/23 Reason For Visit: pt exp delusions, pt denies si/hi, per ems Subjective Notes: Section 8 Interim History: Reviewed in team and . Patient medication compliant last evening and this morning. She continues with paranoid delusions, expressing concern of other peoples safety and people writing about me . Social at times with select peers. Medication Compliance: Yes Side effects from medications: No Attending Groups: Intermittent Review of Systems Review of Systems Constitutional: Reports as per HPI Eyes: Reports as per HPI Reports as per HPI Cardiovascular: Reports as per HPI Respiratory: Reports as per HPI Gastrointestinal: Reports as per HPI Genitourinary: Reports as per HPI Musculoskeletal: Reports as per HPI Skin/Breast: Reports as per HPI Reports as per HPI Psychiatric: Reports as per HPI Endocrine: Reports as per HPI Hematologic/Lymphatic: Reports as per HPI Allergic/Immunologic: Reports as per HPI Mental Status Exam Mental Status Exam Narrative: Pt behavior is guarded and calm; dressed in casual attire with unkempt; mood is described as stressed ; eye contact appropriate; Speech is normal rate, volume and prosody and not pressured; thought blocking, preservative, paranoid, delusional; denies SI/HI. Observed responding to internal stimuli; however denies AH/VH. Patients insight and judgment are poor. Diagnostics Vital Signs (24Hr): Vital Signs - 24 hr 08/26/23 18:00 08/27/23 06:00 Temperature 98.8 F 97.9 F Pulse Rate 73 66 Respiratory Rate 18 Blood Pressure 128/77 103/55 L Pulse Oximetry 99 94 Oxygen Delivery Method Room Air Room Air BMI result Body Mass Index 39.0 Labs 08/16/23 08:46 08/25/23 07:42 Medications Medications Current Medications Acetaminophen (Acetaminophen 325 Mg Tablet) 650 mg PO Q6H PRN PRN Reason: Headache/Pain Mild Scale (1-3) Al Hydroxide/Mg Hydroxide (Magnesium Hydrox/Alum Hydrox 30 Ml Oral.Susp) 30 ml PO Q6H PRN PRN Reason: Heartburn/Nausea Last Admin: 08/17/23 20:30 Dose: 30 ml Albuterol Sulfate (Albuterol Sulfate 90 Mcg 8 Gm Inhaler) 2 puff INHALE RQ4H PRN PRN Reason: short of breath Clonidine HCl (Clonidine Hcl 0.1 Mg Tablet) 0.1 mg PO BID PRN; Protocol PRN Reason: Anxiety Last Admin: 08/01/23 22:12 Dose: 0.1 mg Hydroxyzine HCl (Hydroxyzine Hcl 25 Mg Tablet) 25 mg PO Q6H PRN PRN Reason: Anxiety Last Admin: 07/31/23 17:01 Dose: 25 mg Lisinopril (Lisinopril 2.5 Mg Tablet) 2.5 mg PO DAILY [facility]; Protocol Last Admin: 08/27/23 08:57 Dose: 2.5 mg Magnesium Hydroxide (Milk Of Magnesia 30 Ml Oral.Susp) 30 ml PO DAILY PRN PRN Reason: Constipation Metformin HCl (Metformin Hcl 1,000 Mg Tablet) 1,000 mg PO BID NAMITA Last Admin: 08/27/23 08:57 Dose: 1,000 mg Olanzapine (Olanzapine 10 Mg Vial) 5 mg IM BID PRN PRN Reason: IF REFUSES PO RISPERADOL Ondansetron HCl (Ondansetron Odt 4 Mg Tab.Rapdis) 4 mg TRANSLINGU Q6H PRN PRN Reason: Nausea and Vomiting Polyethylene Glycol (Polyethylene Glycol 3350 17 Gm Powd.Pack) 17 gm PO DAILY PRN PRN Reason: Constipation Propranolol HCl (Propranolol Hcl 10 Mg Tablet) 10 mg PO BID [facility]; Protocol Last Admin: 08/27/23 08:57 Dose: 10 mg Risperidone (Risperidone 2 Mg Tablet) 2 mg PO BID [facility] Last Admin: 08/27/23 08:57 Dose: 2 mg Senna/Docusate Sodium (Sennosides/Docusate Sodium Tablet) 1 tab PO BEDTIME [facility] Last Admin: 08/26/23 21:33 Dose: Not Given Trazodone HCl (Trazodone Hcl 50 Mg Tablet) 50 mg PO BEDTIME MRX1 PRN PRN Reason: Insomnia Allergies Allergies Allergy/AdvReac Type Severity Reaction Status Date / Time clotrimazole Allergy Severe Rash Verified 09/23/22 02:18 Assessment & Plan Assessment & Plan (1) Schizoaffective disorder: Status: Acute Code(s): F25.9 - Schizoaffective disorder, unspecified Plan Patient is a 27 year old female (they/them) with hx of Schizoaffective d/o who [place] [facility] [place]ia, delusions throughout the day which resulted in them calling the police to report a bomb threat on their old apartment building secondary to medication non-compliance. Plan: CV 15 minute safety checks Continue home medications Obtain collateral Discuss starting on mood stabilizer 08/01: Pt presents disorganized with thought blocking. Observed responding to internal stimuli, keeping to self. Pt stated, I'm struggling but whatever. There are too many threats in my life right now and it's making me confused. I'm worried about a lot of people. I'm struggling to explain . Patient reports she believes she has been wire tapped by the news . med compliant. Increased: Geodon to 60mg PO BID 08/02: Pt presents disorganized with thought blocking; conversation is more fluid today after receiving Haldol 5mg PO once and Ativan 1mg PO once yesterday. Observed responding to internal stimuli, keeping to self. Patient denies AH and stated, I usually talk to myself. I'm making a lot of social mistakes here . Patient stated, I'm feeling stressed out. I don't know how to explain it . Patient reports visual hallucinations of a bunch of stuff but could not elaborate. Denies SI/HI. Given another one time dose of Haldol 5mg PO and Ativan 1mg PO. Continue current tx plan. 08/03: no current changes 08/04: no changes 08/05: Increased Geodon to 60mg PO BID. Patient presents alert and oriented today. She is able to state the name of the hospital, the correct month, year, president. However she does present with delusions stating, the last hospital I was at put snakes inside of me and I need to get them removed. I don't need to be on the psychiatric side; I need to be on the medical side of the hospital . Patient reports having visual hallucinations that are distracting but they are not negatively effecting my ability to function . Patient keeping to self, isolative to room. Patient will stop mid-sentence and become distracted by visual hallucinations; she did not elaborate on what they were. Patient reports she would be accepting with an increase in her Geodon and gave verbal permission for T/W to speak with her father. Patient encouraged to consider a JEFF; pt reports other providers have also brought up this topic and would like to consider this option. denies SI/HI/AH 08/06: Patient keeping to self, isolative to room. Presents with thought blocking, not eating unless prompted by staff. Refused medications despite staff encouragement. Observed responding to internal stimuli. Pt continues to believe there is a snake in her body that was placed by last hospitalization. Continue current tx plan. Consider filing Section 7&8 if pt does not improve d/t safety concerns. 08/08: Patient met with [facility] case folder and T/W today. Presents with thought blocking, paranoia, delusional. Believes we are trying to poison her with medications; believes people are spreading rumors about her. Unable to focus on conversation d/t perceptual disturbances. Observed looking around the room, talking to self, pt's name must be called multiple times before responding and stating what? I didn't hear you . She reports she would like to go to a senior living after being discharged from hospital. We discussed benefits of JEFF; T/W informed her that her father also mentioned that he would prefer patient to receive JEFF. Pt then shouted, My father would never say that! Someone is impersonating him! . Continues to believe there was a snake placed inside of her body by last hospital. Not eating unless prompted by staff. Refused medications despite staff encouragement. Will file on patient tomorrow if continues with medication noncompliance. 08/09: Patient continues to present disorganized and delusional. pt stated, I'm worried about the people in my life.The first night I was here,someone was outside my window and threatening me and my family . Pt did take Geodon 80mg PO today d/t pharmacy being able to obtain pill that has 80 printed on it; previous pills had various numbers on pill, which made patient believe she was being givan a very high dosage. She continues to refuse some of her medications. Observed responding to internal stimuli. Will not file on patient d/t starting to take Geodon; pt reports she plans on continuing to be medication compliant. 08/10:Continue plan of care encourage gradual increase 08/11: Continue plan of care with Geodon would try to get patient to accept long-acting injectable would benefit from getting better idea of patient's treatment history is an outpatient has been difficult clarify with patient cannot give the names of outpatient providers or clear treatment history. 08/12: Patient continues to present delusional and paranoid. Pt stated, I have stuff going on that's weird and I don't know what's behind it. Your coworker Adrienne is involved with something being outside my window, threatening me and my family. I don't trust the or police. Also someone was trying to make a horror movie of me at the last hospital while using the cameras . T/W reviewed medications with pt's request; pt stated, I don't need an antipsychotics. You were trying to give me really high dosages of Geodon, like 200 something but now it's correct . T/W explained her dosage was correct,and the manufacture writes numbers on some medications; pt continued to accuse T/W of giving her incorrect dosage. Observed responding to internal stimuli. 08/13: Patient continue to present delusional and paranoid. Refused her morning dose of Geodon. Pt reports she is worried that I have radiation poisoning and will get all of you sick . Patient believes she came to the hospital d/t [facility] being worried that I was going to get their employees in trouble for telling the police they were going to set off a bomb at my last apartment . Patient reports she spoke to her parents yesterday on the phone and feels upset since my parents are not taking the threats seriously and think I'm paranoid. I'm not paranoid! . Patient gives verbal consent to speak with her father but does not want us to speak with her mother. Pt perseverative about various safety concerns and threats. Will reach out to pts father for collateral. 08/14: Pt presents delusional, paranoid, thought blocking. Observed pacing room, talking to self. Responding to internal stimuli. T/W would call patients name, pt would stop, stare at T/W not respond and continue to pace. Pt refused Geodon yesterday and today. to call father today for collateral. 08/15/2023 PATIENT REMAINS GENERALLY NOT CONSISTENTLY TAKING MEDICATION FLORIDLY PARANOID DISORGANIZED THOUGHT BLOCKING AND DIFFICULTY WITH FUNCTIONING. PREOCCUPATION IS REGARDING SOMATIC DELUSIONAL MATERIAL WERE FEARS THAT SHE IS SOMEHOW BEING INJURED OR ATTACKED EITHER BY HOSPITAL OR OTHERS AND PREOCCUPIED WITH THAT SHE WAS ATTACKED ON MULTIPLE OCCASIONS ON OTHERS INCLUDING PAST HOSPITAL AND REPEATEDLY. DOES NOT SEEM TO UNDERSTAND THAT SHE HAS PSYCHIATRIC PSYCHOTIC ILLNESS NOR THAT SHE WOULD BENEFIT FROM ONGOING MEDICATION FOR HER PSYCHIATRIC ILLNESS NOR FOR HER HYPERTENSION GIVEN PATIENT'S MARKED LIMITATION FUNCTIONING FLORID DELUSIONAL CONSISTENT AND CONSTANT PREOCCUPATION MARKED LIMITATIONS IN FUNCTIONING THE SHE SHE WOULD BENEFIT FROM A COMMITMENT AND TREATMENT PLAN TO ADDRESS WHAT HAS BEEN AN ONGOING MARKED IMPAIRMENT IN HER ABILITY TO CARE FOR HERSELF OUTSIDE OF A HOSPITAL SETTING WOULD ULTIMATELY BENEFIT FROM A LONG-ACTING INJECTABLE 08/16- continues to present with complex paranoid and somatic delusions and auditory hallucinations having conversation with someone who is not there. Pt continues to decline medications including lisinopril when SBP in 180's. No capacity to make medical decisions. Impaired judment due to severity of psychiatric symptoms affecting her ability to care for herself. 08/17: Continue current regimen and plans. Continue to encourage in taking her medications 08/19: Conditional voluntary revoked and filed section 7. Continue to encourage taking medications. 08/20: Pt presents delusional, paranoid, thought blocking. Observed staring around room. Responding to internal stimuli. T/W would call patients name, pt would stop, stare at T/W not respond. Pt stated, I'm too poisoned to take anything. I heard some scary staff about the doctor here. I'm scared. I'm worried about the world . Pt did confirm that she is having visual hallucinations today; but would not elaborate. hearing scheduled will try to start long acting inj such as invega 08/21: Patient seen in psychiatric follow-up. Patient anxious somatically preoccupied appears to be intentionally self induce vomiting when asked questions often feeling food is not somehow right medications not somehow right needs much encouragement to take care of herself food fluids intermittent medication acceptance does not seem capable of taking care of herself outside of a hospital setting at this time hearing for commitment and treatment plan schedule for tomorrow patient does not show any insight regarding need for antipsychotic treatment it is potentially stabilizing impact on her life. She did state that she had been stable on Risperdal in the past 08/22:Will try to have conversation regarding starting Invega monitor hemoglobin A1c who patient now here on commitment treatment plan ordered. Will try to engage in treatment 08/23: pt agreeable to risperadol can eventually convert to sustena. on sec 8 tx plan started 08/24: no changes, just started risperdal 08/25:increase risperdal to 2 mg bid 08/26: Patient continues to present delusional and paranoid. Pt stated, someone recently released a book about me. I haven't read it yet . Observed responding to internal stimuil; however denies AH/VH. Continue current tx plan. 08/27: Patient medication compliant last evening and this morning. She continues with paranoid delusions, expressing concern of other peoples safety and people writing about me . Social at times with select peers. Patient educated on: diagnosis and medication risk/benefits Informed Consent: understands Reason for continued inpatient stay Substantial Risk for: med/psych decompensation Time Spent With Patient Time: Total time managing care of this patient today _30___ minutes.
[2023-08-27 20:15] VITALS: BP 125/60; PULSE 75; RESP 17; TEMP 36.6; O2SAT 98
[2023-08-28 06:00] VITALS: BP 121/75; PULSE 83; TEMP 36.2; O2SAT 96
[2023-08-28] MEDS: risperiDONE 2 MG TABLET PO ×2 (09:24→20:36)
[2023-08-28] MEDS: Magnesium Hydrox/Alum Hydrox 30 ML ORAL.SUSP PO (09:28)
--- NOTE | 2023-08-28 11:37 | HO.PSYCHPN ---
Subjective Subjective Date of Service: 08/28/23 Reason For Visit: pt exp delusions, pt denies si/hi, per ems Subjective Notes: Section 8 Interim History: Reviewed in team and . Patient medication compliant with risperidal today; refused other medications. Continues paranoid, delusional, anxious; she is concerned she will contaminate the water supply if she showers or uses the toliet. Patient stated, I've been peeing and pooping in the pullups that I used for my period. I'm worried about contaminating the water supply . Patient reports she is upset because she believes the court hearing wasn't legal and the [place] order is against the law . Staff will continue to encourage patient to shower. Medication Compliance: Intermittent Side effects from medications: No Attending Groups: Intermittent Review of Systems Review of Systems Constitutional: Reports as per HPI Eyes: Reports as per HPI Reports as per HPI Cardiovascular: Reports as per HPI Respiratory: Reports as per HPI Gastrointestinal: Reports as per HPI Genitourinary: Reports as per HPI Musculoskeletal: Reports as per HPI Skin/Breast: Reports as per HPI Reports as per HPI Psychiatric: Reports as per HPI Endocrine: Reports as per HPI Hematologic/Lymphatic: Reports as per HPI Allergic/Immunologic: Reports as per HPI Mental Status Exam Mental Status Exam Narrative: Pt behavior is guarded and calm; dressed in casual attire with unkempt; mood is described as stressed ; eye contact appropriate; Speech is normal rate, volume and prosody and not pressured; thought blocking, preservative, paranoid, delusional; denies SI/HI. Observed responding to internal stimuli; however denies AH/VH. Patients insight and judgment are poor. Diagnostics Vital Signs (24Hr): Vital Signs - 24 hr 08/27/23 20:15 08/28/23 06:00 Temperature 97.8 F 97.1 F Pulse Rate 75 83 Respiratory Rate 17 Blood Pressure 125/60 121/75 Pulse Oximetry 98 96 Oxygen Delivery Method Room Air Room Air BMI result Body Mass Index 39.0 Labs 08/16/23 08:46 08/25/23 07:42 Medications Medications Current Medications Acetaminophen (Acetaminophen 325 Mg Tablet) 650 mg PO Q6H PRN PRN Reason: Headache/Pain Mild Scale (1-3) Al Hydroxide/Mg Hydroxide (Magnesium Hydrox/Alum Hydrox 30 Ml Oral.Susp) 30 ml PO Q6H PRN PRN Reason: Heartburn/Nausea Last Admin: 08/28/23 09:28 Dose: 30 ml Albuterol Sulfate (Albuterol Sulfate 90 Mcg 8 Gm Inhaler) 2 puff INHALE RQ4H PRN PRN Reason: short of breath Clonidine HCl (Clonidine Hcl 0.1 Mg Tablet) 0.1 mg PO BID PRN; Protocol PRN Reason: Anxiety Last Admin: 08/01/23 22:12 Dose: 0.1 mg Hydroxyzine HCl (Hydroxyzine Hcl 25 Mg Tablet) 25 mg PO Q6H PRN PRN Reason: Anxiety Last Admin: 07/31/23 17:01 Dose: 25 mg Lisinopril (Lisinopril 2.5 Mg Tablet) 2.5 mg PO DAILY [facility]; Protocol Last Admin: 08/28/23 09:32 Dose: Not Given Magnesium Hydroxide (Milk Of Magnesia 30 Ml Oral.Susp) 30 ml PO DAILY PRN PRN Reason: Constipation Metformin HCl (Metformin Hcl 1,000 Mg Tablet) 1,000 mg PO BID [facility] Last Admin: 08/28/23 09:32 Dose: Not Given Olanzapine (Olanzapine 10 Mg Vial) 5 mg IM BID PRN PRN Reason: IF REFUSES PO RISPERADOL Ondansetron HCl (Ondansetron Odt 4 Mg Tab.Rapdis) 4 mg TRANSLINGU Q6H PRN PRN Reason: Nausea and Vomiting Polyethylene Glycol (Polyethylene Glycol 3350 17 Gm Powd.Pack) 17 gm PO DAILY PRN PRN Reason: Constipation Propranolol HCl (Propranolol Hcl 10 Mg Tablet) 10 mg PO BID [facility]; Protocol Last Admin: 08/28/23 09:32 Dose: Not Given Risperidone (Risperidone 2 Mg Tablet) 2 mg PO BID [facility] Last Admin: 08/28/23 09:24 Dose: 2 mg Senna/Docusate Sodium (Sennosides/Docusate Sodium Tablet) 1 tab PO BEDTIME [facility] Last Admin: 08/27/23 20:32 Dose: Not Given Trazodone HCl (Trazodone Hcl 50 Mg Tablet) 50 mg PO BEDTIME MRX1 PRN PRN Reason: Insomnia Allergies Allergies Allergy/AdvReac Type Severity Reaction Status Date / Time clotrimazole Allergy Severe Rash Verified 09/23/22 02:18 Assessment & Plan Assessment & Plan (1) Schizoaffective disorder: Status: Acute Code(s): F25.9 - Schizoaffective disorder, unspecified Plan Patient is a 27 year old female (they/them) with hx of Schizoaffective d/o who presented to [facility] with paranoia, delusions throughout the day which resulted in them calling the police to report a bomb threat on their old apartment building secondary to medication non-compliance. Plan: CV 15 minute safety checks Continue home medications Obtain collateral Discuss starting on mood stabilizer 08/01: Pt presents disorganized with thought blocking. Observed responding to internal stimuli, keeping to self. Pt stated, I'm struggling but whatever. There are too many threats in my life right now and it's making me confused. I'm worried about a lot of people. I'm struggling to explain . Patient reports she believes she has been wire tapped by the news . med compliant. Increased: Geodon to 60mg PO BID 08/02: Pt presents disorganized with thought blocking; conversation is more fluid today after receiving Haldol 5mg PO once and Ativan 1mg PO once yesterday. Observed responding to internal stimuli, keeping to self. Patient denies AH and stated, I usually talk to myself. I'm making a lot of social mistakes here . Patient stated, I'm feeling stressed out. I don't know how to explain it . Patient reports visual hallucinations of a bunch of stuff but could not elaborate. Denies SI/HI. Given another one time dose of Haldol 5mg PO and Ativan 1mg PO. Continue current tx plan. 08/03: no current changes 08/04: no changes 08/05: Increased Geodon to 60mg PO BID. Patient presents alert and oriented today. She is able to state the name of the hospital, the correct month, year, president. However she does present with delusions stating, the last hospital I was at put snakes inside of me and I need to get them removed. I don't need to be on the psychiatric side; I need to be on the medical side of the hospital . Patient reports having visual hallucinations that are distracting but they are not negatively effecting my ability to function . Patient keeping to self, isolative to room. Patient will stop mid-sentence and become distracted by visual hallucinations; she did not elaborate on what they were. Patient reports she would be accepting with an increase in her Geodon and gave verbal permission for T/W to speak with her father. Patient encouraged to consider a JEFF; pt reports other providers have also brought up this topic and would like to consider this option. denies SI/HI/AH 08/06: Patient keeping to self, isolative to room. Presents with thought blocking, not eating unless prompted by staff. Refused medications despite staff encouragement. Observed responding to internal stimuli. Pt continues to believe there is a snake in her body that was placed by last hospitalization. Continue current tx plan. Consider filing Section 7&8 if pt does not improve d/t safety concerns. 08/08: Patient met with [facility] case operator and T/W today. Presents with thought blocking, paranoia, delusional. Believes we are trying to poison her with medications; believes people are spreading rumors about her. Unable to focus on conversation d/t perceptual disturbances. Observed looking around the room, talking to self, pt's name must be called multiple times before responding and stating what? I didn't hear you . She reports she would like to go to a [facility] after being discharged from hospital. We discussed benefits of JEFF; T/W informed her that her father also mentioned that he would prefer patient to receive JEFF. Pt then shouted, My father would never say that! Someone is impersonating him! . Continues to believe there was a snake placed inside of her body by last hospital. Not eating unless prompted by staff. Refused medications despite staff encouragement. Will file on patient tomorrow if continues with medication noncompliance. 08/09: Patient continues to present disorganized and delusional. pt stated, I'm worried about the people in my life.The first night I was here,someone was outside my window and threatening me and my family . Pt did take Geodon 80mg PO today d/t pharmacy being able to obtain pill that has 80 printed on it; previous pills had various numbers on pill, which made patient believe she was being givan a very high dosage. She continues to refuse some of her medications. Observed responding to internal stimuli. Will not file on patient d/t starting to take Geodon; pt reports she plans on continuing to be medication compliant. 08/10:Continue plan of care encourage gradual increase 08/11: Continue plan of care with Geodon would try to get patient to accept long-acting injectable would benefit from getting better idea of patient's treatment history is an outpatient has been difficult clarify with patient cannot give the names of outpatient providers or clear treatment history. 08/12: Patient continues to present delusional and paranoid. Pt stated, I have stuff going on that's weird and I don't know what's behind it. Your coworker Adrienne is involved with something being outside my window, threatening me and my family. I don't trust the or police. Also someone was trying to make a horror movie of me at the last hospital while using the cameras . T/W reviewed medications with pt's request; pt stated, I don't need an antipsychotics. You were trying to give me really high dosages of Geodon, like 200 something but now it's correct . T/W explained her dosage was correct,and the manufacture writes numbers on some medications; pt continued to accuse T/W of giving her incorrect dosage. Observed responding to internal stimuli. 08/13: Patient continue to present delusional and paranoid. Refused her morning dose of Geodon. Pt reports she is worried that I have radiation poisoning and will get all of you sick . Patient believes she came to the hospital d/t [facility] being worried that I was going to get their employees in trouble for telling the police they were going to set off a bomb at my last apartment . Patient reports she spoke to her parents yesterday on the phone and feels upset since my parents are not taking the threats seriously and think I'm paranoid. I'm not paranoid! . Patient gives verbal consent to speak with her father but does not want us to speak with her mother. Pt perseverative about various safety concerns and threats. Will reach out to pts father for collateral. 08/14: Pt presents delusional, paranoid, thought blocking. Observed pacing room, talking to self. Responding to internal stimuli. T/W would call patients name, pt would stop, stare at T/W not respond and continue to pace. Pt refused Geodon yesterday and today. to call father today for collateral. 08/15/2023 PATIENT REMAINS GENERALLY NOT CONSISTENTLY TAKING MEDICATION FLORIDLY PARANOID DISORGANIZED THOUGHT BLOCKING AND DIFFICULTY WITH FUNCTIONING. PREOCCUPATION IS REGARDING SOMATIC DELUSIONAL MATERIAL WERE FEARS THAT SHE IS SOMEHOW BEING INJURED OR ATTACKED EITHER BY HOSPITAL OR OTHERS AND PREOCCUPIED WITH THAT SHE WAS ATTACKED ON MULTIPLE OCCASIONS ON OTHERS INCLUDING PAST HOSPITAL AND REPEATEDLY. DOES NOT SEEM TO UNDERSTAND THAT SHE HAS PSYCHIATRIC PSYCHOTIC ILLNESS NOR THAT SHE WOULD BENEFIT FROM ONGOING MEDICATION FOR HER PSYCHIATRIC ILLNESS NOR FOR HER HYPERTENSION GIVEN PATIENT'S MARKED LIMITATION FUNCTIONING FLORID DELUSIONAL CONSISTENT AND CONSTANT PREOCCUPATION MARKED LIMITATIONS IN FUNCTIONING THE SHE SHE WOULD BENEFIT FROM A COMMITMENT AND TREATMENT PLAN TO ADDRESS WHAT HAS BEEN AN ONGOING MARKED IMPAIRMENT IN HER ABILITY TO CARE FOR HERSELF OUTSIDE OF A HOSPITAL SETTING WOULD ULTIMATELY BENEFIT FROM A LONG-ACTING INJECTABLE 08/16- continues to present with complex paranoid and somatic delusions and auditory hallucinations having conversation with someone who is not there. Pt continues to decline medications including lisinopril when SBP in 180's. No capacity to make medical decisions. Impaired judment due to severity of psychiatric symptoms affecting her ability to care for herself. 08/17: Continue current regimen and plans. Continue to encourage in taking her medications 08/19: Conditional voluntary revoked and filed section 7. Continue to encourage taking medications. 08/20: Pt presents delusional, paranoid, thought blocking. Observed staring around room. Responding to internal stimuli. T/W would call patients name, pt would stop, stare at T/W not respond. Pt stated, I'm too poisoned to take anything. I heard some scary staff about the doctor here. I'm scared. I'm worried about the world . Pt did confirm that she is having visual hallucinations today; but would not elaborate. hearing scheduled will try to start long acting inj such as invega 08/21: Patient seen in psychiatric follow-up. Patient anxious somatically preoccupied appears to be intentionally self induce vomiting when asked questions often feeling food is not somehow right medications not somehow right needs much encouragement to take care of herself food fluids intermittent medication acceptance does not seem capable of taking care of herself outside of a hospital setting at this time hearing for commitment and treatment plan schedule for tomorrow patient does not show any insight regarding need for antipsychotic treatment it is potentially stabilizing impact on her life. She did state that she had been stable on Risperdal in the past 08/22:Will try to have conversation regarding starting Invega monitor hemoglobin A1c who patient now here on commitment treatment plan ordered. Will try to engage in treatment 08/23: pt agreeable to risperadol can eventually convert to sustena. on sec 8 tx plan started 08/24: no changes, just started risperdal 08/25:increase risperdal to 2 mg bid 08/26: Patient continues to present delusional and paranoid. Pt stated, someone recently released a book about me. I haven't read it yet . Observed responding to internal stimuil; however denies AH/VH. Continue current tx plan. 08/27: Patient medication compliant last evening and this morning. She continues with paranoid delusions, expressing concern of other peoples safety and people writing about me . Social at times with select peers. 08/28: Patient medication compliant with risperidal today; refused other medications. Continues paranoid, delusional, anxious; she is concerned she will contaminate the water supply if she showers or uses the toliet. Patient stated, I've been peeing and pooping in the pullups that I used for my period. I'm worried about contaminating the water supply . Patient reports she is upset because she believes the court hearing wasn't legal and the [place] order is against the law . Staff will continue to encourage patient to shower. Patient educated on: diagnosis and medication risk/benefits Informed Consent: understands Reason for continued inpatient stay Substantial Risk for: inability to function and med/psych decompensation Time Spent With Patient Time: Total time managing care of this patient today _30___ minutes.
[2023-08-28 20:05] VITALS: BP 138/61; PULSE 94; RESP 16; TEMP 36.3; O2SAT 98
[2023-08-29 06:00] VITALS: BP 140/73; PULSE 106; TEMP 36.3; O2SAT 97
[2023-08-29] MEDS: risperiDONE 2 MG TABLET PO (08:46)
--- NOTE | 2023-08-29 09:21 | P.PNPSI_ITS ---
Subjective Subjective Date of Service: 08/29/23 Reason For Visit: pt exp delusions, pt denies si/hi, per ems Subjective Notes: Section 8 Interim History: Reviewed in team and . Patient continues paranoid, delusional, anxious; she is concerned she will contaminate the water supply if she showers. Pt reports she is now using the toilet and no longer using pull ups, even though I'm still worried about the water system . Patient refused to shower yesterday. Staff will continue to encourage patient to shower. Medication Compliance: Intermittent Side effects from medications: No Attending Groups: Intermittent Review of Systems Review of Systems Constitutional: Reports as per HPI Eyes: Reports as per HPI Reports as per HPI Cardiovascular: Reports as per HPI Respiratory: Reports as per HPI Gastrointestinal: Reports as per HPI Genitourinary: Reports as per HPI Musculoskeletal: Reports as per HPI Skin/Breast: Reports as per HPI Reports as per HPI Psychiatric: Reports as per HPI Endocrine: Reports as per HPI Hematologic/Lymphatic: Reports as per HPI Allergic/Immunologic: Reports as per HPI Mental Status Exam Mental Status Exam Narrative: Pt behavior is guarded and calm; dressed in casual attire with unkempt; mood is described as stressed ; eye contact appropriate; Speech is normal rate, volume and prosody and not pressured; thought blocking, preservative, paranoid, delusional; denies SI/HI. Observed responding to internal stimuli; however denies AH/VH. Patients insight and judgment are poor. Diagnostics Vital Signs (24Hr): Vital Signs - 24 hr 08/28/23 20:05 08/29/23 06:00 Temperature 97.3 F 97.4 F Pulse Rate 94 106 H Respiratory Rate 16 Blood Pressure 138/61 140/73 H Pulse Oximetry 98 97 Oxygen Delivery Method Room Air Room Air BMI result Body Mass Index 39.0 Labs 08/16/23 08:46 08/25/23 07:42 Medications Medications Current Medications Acetaminophen (Acetaminophen 325 Mg Tablet) 650 mg PO Q6H PRN PRN Reason: Headache/Pain Mild Scale (1-3) Al Hydroxide/Mg Hydroxide (Magnesium Hydrox/Alum Hydrox 30 Ml Oral.Susp) 30 ml PO Q6H PRN PRN Reason: Heartburn/Nausea Last Admin: 08/28/23 09:28 Dose: 30 ml Albuterol Sulfate (Albuterol Sulfate 90 Mcg 8 Gm Inhaler) 2 puff INHALE RQ4H PRN PRN Reason: short of breath Clonidine HCl (Clonidine Hcl 0.1 Mg Tablet) 0.1 mg PO BID PRN; Protocol PRN Reason: Anxiety Last Admin: 08/01/23 22:12 Dose: 0.1 mg Hydroxyzine HCl (Hydroxyzine Hcl 25 Mg Tablet) 25 mg PO Q6H PRN PRN Reason: Anxiety Last Admin: 07/31/23 17:01 Dose: 25 mg Lisinopril (Lisinopril 2.5 Mg Tablet) 2.5 mg PO DAILY ON LICENSE OF [facility]; Protocol Last Admin: 08/29/23 08:53 Dose: Not Given Magnesium Hydroxide (Milk Of Magnesia 30 Ml Oral.Susp) 30 ml PO DAILY PRN PRN Reason: Constipation Metformin HCl (Metformin Hcl 1,000 Mg Tablet) 1,000 mg PO BID ON LICENSE OF [facility] Last Admin: 08/29/23 08:56 Dose: Not Given Olanzapine (Olanzapine 10 Mg Vial) 5 mg IM BID PRN PRN Reason: IF REFUSES PO RISPERADOL Ondansetron HCl (Ondansetron Odt 4 Mg Tab.Rapdis) 4 mg TRANSLINGU Q6H PRN PRN Reason: Nausea and Vomiting Polyethylene Glycol (Polyethylene Glycol 3350 17 Gm Powd.Pack) 17 gm PO DAILY PRN PRN Reason: Constipation Propranolol HCl (Propranolol Hcl 10 Mg Tablet) 10 mg PO BID ON LICENSE OF [facility]; Protocol Last Admin: 08/29/23 08:56 Dose: Not Given Risperidone (Risperidone 2 Mg Tablet) 2 mg PO BID ON LICENSE OF [facility] Last Admin: 08/29/23 08:46 Dose: 2 mg Senna/Docusate Sodium (Sennosides/Docusate Sodium Tablet) 1 tab PO BEDTIME ON LICENSE OF [facility] Last Admin: 08/28/23 20:38 Dose: Not Given Trazodone HCl (Trazodone Hcl 50 Mg Tablet) 50 mg PO BEDTIME MRX1 PRN PRN Reason: Insomnia Allergies Allergies Allergy/AdvReac Type Severity Reaction Status Date / Time clotrimazole Allergy Severe Rash Verified 09/23/22 02:18 Assessment & Plan Assessment & Plan (1) Schizoaffective disorder: Status: Acute Code(s): F25.9 - Schizoaffective disorder, unspecified Plan Patient is a 27 year old female (they/them) with hx of Schizoaffective d/o who presented [place] [facility] with paranoia, delusions throughout the day which resulted in them calling the police to report a bomb threat on their old apartment building secondary to medication non-compliance. Plan: CV 15 minute safety checks Continue home medications Obtain collateral Discuss starting on mood stabilizer 08/01: Pt presents disorganized with thought blocking. Observed responding to internal stimuli, keeping to self. Pt stated, I'm struggling but whatever. There are too many threats in my life right now and it's making me confused. I'm worried about a lot of people. I'm struggling to explain . Patient reports she believes she has been wire tapped by the news . med compliant. Increased: Geodon to 60mg PO BID 08/02: Pt presents disorganized with thought blocking; conversation is more fluid today after receiving Haldol 5mg PO once and Ativan 1mg PO once yesterday. Observed responding to internal stimuli, keeping to self. Patient denies AH and stated, I usually talk to myself. I'm making a lot of social mistakes here . Patient stated, I'm feeling stressed out. I don't know how to explain it . Patient reports visual hallucinations of a bunch of stuff but could not elaborate. Denies SI/HI. Given another one time dose of Haldol 5mg PO and Ativan 1mg PO. Continue current tx plan. 08/03: no current changes 08/04: no changes 08/05: Increased Geodon to 60mg PO BID. Patient presents alert and oriented today. She is able to state the name of the hospital, the correct month, year, president. However she does present with delusions stating, the last hospital I was at put snakes inside of me and I need to get them removed. I don't need to be on the psychiatric side; I need to be on the medical side of the hospital . Patient reports having visual hallucinations that are distracting but they are not negatively effecting my ability to function . Patient keeping to self, isolative to room. Patient will stop mid-sentence and become distracted by visual hallucinations; she did not elaborate on what they were. Patient reports she would be accepting with an increase in her Geodon and gave verbal permission for T/W to speak with her father. Patient encouraged to consider a JEFF; pt reports other providers have also brought up this topic and would like to consider this option. denies SI/HI/AH 08/06: Patient keeping to self, isolative to room. Presents with thought blocking, not eating unless prompted by staff. Refused medications despite staff encouragement. Observed responding to internal stimuli. Pt continues to believe there is a snake in her body that was placed by last hospitalization. Continue current tx plan. Consider filing Section 7&8 if pt does not improve d/t safety concerns. 08/08: Patient met with [facility] case hardener and T/W today. Presents with thought blocking, paranoia, delusional. Believes we are trying to poison her with medications; believes people are spreading rumors about her. Unable to focus on conversation d/t perceptual disturbances. Observed looking around the room, talking to self, pt's name must be called multiple times before responding and stating what? I didn't hear you . She reports she would like to go to a alf after being discharged from hospital. We discussed benefits of JEFF; T/W informed her that her father also mentioned that he would prefer patient to receive JEFF. Pt then shouted, My father would never say that! Someone is impersonating him! . Continues to believe there was a snake placed inside of her body by last hospital. Not eating unless prompted by staff. Refused medications despite staff encouragement. Will file on patient tomorrow if continues with medication noncompliance. 08/09: Patient continues to present disorganized and delusional. pt stated, I'm worried about the people in my life.The first night I was here,someone was outside my window and threatening me and my family . Pt did take Geodon 80mg PO today d/t pharmacy being able to obtain pill that has 80 printed on it; previous pills had various numbers on pill, which made patient believe she was being givan a very high dosage. She continues to refuse some of her medications. Observed responding to internal stimuli. Will not file on patient d/t starting to take Geodon; pt reports she plans on continuing to be medication compliant. 08/10:Continue plan of care encourage gradual increase 08/11: Continue plan of care with Geodon would try to get patient to accept long-acting injectable would benefit from getting better idea of patient's treatment history is an outpatient has been difficult clarify with patient cannot give the names of outpatient providers or clear treatment history. 08/12: Patient continues to present delusional and paranoid. Pt stated, I have stuff going on that's weird and I don't know what's behind it. Your coworker Adrienne is involved with something being outside my window, threatening me and my family. I don't trust the or police. Also someone was trying to make a horror movie of me at the last hospital while using the cameras . T/W reviewed medications with pt's request; pt stated, I don't need an antipsychotics. You were trying to give me really high dosages of Geodon, like 200 something but now it's correct . T/W explained her dosage was correct,and the manufacture writes numbers on some medications; pt continued to accuse T/W of giving her incorrect dosage. Observed responding to internal stimuli. 08/13: Patient continue to present delusional and paranoid. Refused her morning dose of Geodon. Pt reports she is worried that I have radiation poisoning and will get all of you sick . Patient believes she came to the hospital d/t [facility] being worried that I was going to get their employees in trouble for telling the police they were going to set off a bomb at my last apartment . Patient reports she spoke to her parents yesterday on the phone and feels upset since my parents are not taking the threats seriously and think I'm paranoid. I'm not paranoid! . Patient gives verbal consent to speak with her father but does not want us to speak with her mother. Pt perseverative about various safety concerns and threats. Will reach out to pts father for collateral. 08/14: Pt presents delusional, paranoid, thought blocking. Observed pacing room, talking to self. Responding to internal stimuli. T/W would call patients name, pt would stop, stare at T/W not respond and continue to pace. Pt refused Geodon yesterday and today. to call father today for collateral. 08/15/2023 PATIENT REMAINS GENERALLY NOT CONSISTENTLY TAKING MEDICATION FLORIDLY PARANOID DISORGANIZED THOUGHT BLOCKING AND DIFFICULTY WITH FUNCTIONING. PREOCCUPATION IS REGARDING SOMATIC DELUSIONAL MATERIAL WERE FEARS THAT SHE IS SOMEHOW BEING INJURED OR ATTACKED EITHER BY HOSPITAL OR OTHERS AND PREOCCUPIED WITH THAT SHE WAS ATTACKED ON MULTIPLE OCCASIONS ON OTHERS INCLUDING PAST HOSPITAL AND REPEATEDLY. DOES NOT SEEM TO UNDERSTAND THAT SHE HAS PSYCHIATRIC PSYCHOTIC ILLNESS NOR THAT SHE WOULD BENEFIT FROM ONGOING MEDICATION FOR HER PSYCHIATRIC ILLNESS NOR FOR HER HYPERTENSION GIVEN PATIENT'S MARKED LIMITATION FUNCTIONING FLORID DELUSIONAL CONSISTENT AND CONSTANT PREOCCUPATION MARKED LIMITATIONS IN FUNCTIONING THE SHE SHE WOULD BENEFIT FROM A COMMITMENT AND TREATMENT PLAN TO ADDRESS WHAT HAS BEEN AN ONGOING MARKED IMPAIRMENT IN HER ABILITY TO CARE FOR HERSELF OUTSIDE OF A HOSPITAL SETTING WOULD ULTIMATELY BENEFIT FROM A LONG- ACTING INJECTABLE 08/16- continues to present with complex paranoid and somatic delusions and auditory hallucinations having conversation with someone who is not there. Pt continues to decline medications including lisinopril when SBP in 180's. No capacity to make medical decisions. Impaired judment due to severity of psychiatric symptoms affecting her ability to care for herself. 08/17: Continue current regimen and plans. Continue to encourage in taking her medications 08/19: Conditional voluntary revoked and filed section 7. Continue to encourage taking medications. 08/20: Pt presents delusional, paranoid, thought blocking. Observed staring around room. Responding to internal stimuli. T/W would call patients name, pt would stop, stare at T/W not respond. Pt stated, I'm too poisoned to take anything. I heard some scary staff about the doctor here. I'm scared. I'm worried about the world . Pt did confirm that she is having visual hallucinations today; but would not elaborate. hearing scheduled will try to start long acting inj such as invega 08/21: Patient seen in psychiatric follow-up. Patient anxious somatically preoccupied appears to be intentionally self induce vomiting when asked questions often feeling food is not somehow right medications not somehow right needs much encouragement to take care of herself food fluids intermittent medication acceptance does not seem capable of taking care of herself outside of a hospital setting at this time hearing for commitment and treatment plan schedule for tomorrow patient does not show any insight regarding need for antipsychotic treatment it is potentially stabilizing impact on her life. She did state that she had been stable on Risperdal in the past 08/22:Will try to have conversation regarding starting Invega monitor hemoglobin A1c who patient now here on commitment treatment plan ordered. Will try to engage in treatment 08/23: pt agreeable to risperadol can eventually convert to sustena. on sec 8 tx plan started 08/24: no changes, just started risperdal 08/25:increase risperdal to 2 mg bid 08/26: Patient continues to present delusional and paranoid. Pt stated, someone recently released a book about me. I haven't read it yet . Observed responding to internal stimuil; however denies AH/VH. Continue current tx plan. 08/27: Patient medication compliant last evening and this morning. She continues with paranoid delusions, expressing concern of other peoples safety and people writing about me . Social at times with select peers. 08/28: Patient medication compliant with risperidal today; refused other medications. Continues paranoid, delusional, anxious; she is concerned she will contaminate the water supply if she showers or uses the toliet. Patient stated, I've been peeing and pooping in the pullups that I used for my period. I'm worried about contaminating the water supply . Patient reports she is upset because she believes the court hearing wasn't legal and the [place] order is against the law . Staff will continue to encourage patient to shower. 08/29: Patient continues paranoid, delusional, anxious; she is concerned she will contaminate the water supply if she showers. Pt reports she is now using the toilet and no longer using pull ups, even though I'm still worried about the water system . Patient refused to shower yesterday. Risperidal changed to liquid to avoid cheeking. Patient educated on: diagnosis, medication risk/benefits and therapeutic strategies Informed Consent: understands Reason for continued inpatient stay Substantial Risk for: med/psych decompensation Time Spent With Patient Time: Total time managing care of this patient today _30___ minutes.
[2023-08-29 19:52] VITALS: BP 145/67; PULSE 89; TEMP 36.6; O2SAT 97
[2023-08-29] MEDS: risperiDONE Oral Sol 1 MG/ML SOLUTION 2 MG PO (21:02)
[2023-08-29] MEDS: metFORMIN HCl 1,000 MG TABLET 1000 MG PO (21:07)
[2023-08-30 08:00] VITALS: BP 127/65; PULSE 90; RESP 17; TEMP 36.3; O2SAT 97
[2023-08-30] MEDS: risperiDONE Oral Sol 1 MG/ML SOLUTION 2 MG PO ×2 (08:35→21:42)
--- NOTE | 2023-08-30 09:57 | P.PNPSI_ITS ---
Subjective Subjective Date of Service: 08/30/23 Reason For Visit: pt exp delusions, pt denies si/hi, per ems Subjective Notes: Section 8 Interim History: Reviewed in team and . Patient continues paranoid, delusional, anxious; she continues to refused to shower d/t her concern of her radiation contaminating the water supply. Observed talking to self at times. Thought blocking. Pt stated, can you change the medication back to the pill form because I know there is acid being put into the liquid kind . Pt requesting test d/t not feeling right ; test ordered. Medication Compliance: Intermittent Side effects from medications: No Attending Groups: No Review of Systems Review of Systems Constitutional: Reports as per HPI Eyes: Reports as per HPI Reports as per HPI Cardiovascular: Reports as per HPI Respiratory: Reports as per HPI Gastrointestinal: Reports as per HPI Genitourinary: Reports as per HPI Musculoskeletal: Reports as per HPI Skin/Breast: Reports as per HPI Reports as per HPI Psychiatric: Reports as per HPI Endocrine: Reports as per HPI Hematologic/Lymphatic: Reports as per HPI Allergic/Immunologic: Reports as per HPI Mental Status Exam Mental Status Exam Narrative: Pt behavior is guarded and calm; dressed in casual attire with unkempt; mood is described as stressed ; eye contact appropriate; Speech is normal rate, volume and prosody and not pressured; thought blocking, preservative, paranoid, delusional; denies SI/HI. Observed responding to internal stimuli; however denies AH/VH. Patients insight and judgment are poor. Diagnostics Vital Signs (24Hr): Vital Signs - 24 hr 08/29/23 19:52 Temperature 97.8 F Pulse Rate 89 Blood Pressure 145/67 H Pulse Oximetry 97 Oxygen Delivery Method Room Air BMI result Body Mass Index 39.0 Labs 08/16/23 08:46 08/25/23 07:42 Medications Medications Current Medications Acetaminophen (Acetaminophen 325 Mg Tablet) 650 mg PO Q6H PRN PRN Reason: Headache/Pain Mild Scale (1-3) Al Hydroxide/Mg Hydroxide (Magnesium Hydrox/Alum Hydrox 30 Ml Oral.Susp) 30 ml PO Q6H PRN PRN Reason: Heartburn/Nausea Last Admin: 08/28/23 09:28 Dose: 30 ml Albuterol Sulfate (Albuterol Sulfate 90 Mcg 8 Gm Inhaler) 2 puff INHALE RQ4H PRN PRN Reason: short of breath Clonidine HCl (Clonidine Hcl 0.1 Mg Tablet) 0.1 mg PO BID PRN; Protocol PRN Reason: Anxiety Last Admin: 08/01/23 22:12 Dose: 0.1 mg Hydroxyzine HCl (Hydroxyzine Hcl 25 Mg Tablet) 25 mg PO Q6H PRN PRN Reason: Anxiety Last Admin: 07/31/23 17:01 Dose: 25 mg Lisinopril (Lisinopril 2.5 Mg Tablet) 2.5 mg PO DAILY [facility]; Protocol Last Admin: 08/30/23 08:44 Dose: Not Given Magnesium Hydroxide (Milk Of Magnesia 30 Ml Oral.Susp) 30 ml PO DAILY PRN PRN Reason: Constipation Metformin HCl (Metformin Hcl 1,000 Mg Tablet) 1,000 mg PO BID [facility] Last Admin: 08/30/23 08:44 Dose: Not Given Olanzapine (Olanzapine 10 Mg Vial) 5 mg IM BID PRN PRN Reason: IF REFUSES PO RISPERADOL Ondansetron HCl (Ondansetron Odt 4 Mg Tab.Rapdis) 4 mg TRANSLINGU Q6H PRN PRN Reason: Nausea and Vomiting Polyethylene Glycol (Polyethylene Glycol 3350 17 Gm Powd.Pack) 17 gm PO DAILY PRN PRN Reason: Constipation Propranolol HCl (Propranolol Hcl 10 Mg Tablet) 10 mg PO BID [facility]; Protocol Last Admin: 08/30/23 08:44 Dose: Not Given Risperidone (Risperidone Oral Lorena 1 Mg/Ml Solution) 2 mg PO BID [facility] Last Admin: 08/30/23 08:35 Dose: 2 mg Senna/Docusate Sodium (Sennosides/Docusate Sodium Tablet) 1 tab PO BEDTIME [facility] Last Admin: 08/29/23 21:00 Dose: Not Given Trazodone HCl (Trazodone Hcl 50 Mg Tablet) 50 mg PO BEDTIME MRX1 PRN PRN Reason: Insomnia Allergies Allergies Allergy/AdvReac Type Severity Reaction Status Date / Time clotrimazole Allergy Severe Rash Verified 09/23/22 02:18 Assessment & Plan Assessment & Plan (1) Schizoaffective disorder: Status: Acute Code(s): F25.9 - Schizoaffective disorder, unspecified Plan Patient is a 27 year old female (they/them) with hx of Schizoaffective d/o who presented to [facility] [place] with paranoia, delusions throughout the day which resulted in them calling the police to report a bomb threat on their old apartment building secondary to medication non-compliance. Plan: CV 15 minute safety checks Continue home medications Obtain collateral Discuss starting on mood stabilizer 08/01: Pt presents disorganized with thought blocking. Observed responding to internal stimuli, keeping to self. Pt stated, I'm struggling but whatever. There are too many threats in my life right now and it's making me confused. I'm worried about a lot of people. I'm struggling to explain . Patient reports she believes she has been wire tapped by the news . med compliant. Increased: Geodon to 60mg PO BID 08/02: Pt presents disorganized with thought blocking; conversation is more fluid today after receiving Haldol 5mg PO once and Ativan 1mg PO once yesterday. Observed responding to internal stimuli, keeping to self. Patient denies AH and stated, I usually talk to myself. I'm making a lot of social mistakes here . Patient stated, I'm feeling stressed out. I don't know how to explain it . Patient reports visual hallucinations of a bunch of stuff but could not elaborate. Denies SI/HI. Given another one time dose of Haldol 5mg PO and Ativan 1mg PO. Continue current tx plan. 08/03: no current changes 08/04: no changes 08/05: Increased Geodon to 60mg PO BID. Patient presents alert and oriented today. She is able to state the name of the hospital, the correct month, year, president. However she does present with delusions stating, the last hospital I was at put snakes inside of me and I need to get them removed. I don't need to be on the psychiatric side; I need to be on the medical side of the hospital . Patient reports having visual hallucinations that are distracting but they are not negatively effecting my ability to function . Patient keeping to self, isolative to room. Patient will stop mid-sentence and become distracted by visual hallucinations; she did not elaborate on what they were. Patient reports she would be accepting with an increase in her Geodon and gave verbal permission for T/W to speak with her father. Patient encouraged to consider a JEFF; pt reports other providers have also brought up this topic and would like to consider this option. denies SI/HI/AH 08/06: Patient keeping to self, isolative to room. Presents with thought blocking, not eating unless prompted by staff. Refused medications despite staff encouragement. Observed responding to internal stimuli. Pt continues to believe there is a snake in her body that was placed by last hospitalization. Continue current tx plan. Consider filing Section 7&8 if pt does not improve d/t safety concerns. 08/08: Patient met with [facility] shoe parts caser and T/W today. Presents with thought blocking, paranoia, delusional. Believes we are trying to poison her with medications; believes people are spreading rumors about her. Unable to focus on conversation d/t perceptual disturbances. Observed looking around the room, talking to self, pt's name must be called multiple times before responding and stating what? I didn't hear you . She reports she would like to go to a longterm after being discharged from hospital. We discussed benefits of JEFF; T/W informed her that her father also mentioned that he would prefer patient to receive JEFF. Pt then shouted, My father would never say that! Someone is impersonating him! . Continues to believe there was a snake placed inside of her body by last hospital. Not eating unless prompted by staff. Refused medications despite staff encouragement. Will file on patient tomorrow if continues with medication noncompliance. 08/09: Patient continues to present disorganized and delusional. pt stated, I'm worried about the people in my life.The first night I was here,someone was outside my window and threatening me and my family . Pt did take Geodon 80mg PO today d/t pharmacy being able to obtain pill that has 80 printed on it; previous pills had various numbers on pill, which made patient believe she was being givan a very high dosage. She continues to refuse some of her medications. Observed responding to internal stimuli. Will not file on patient d/t starting to take Geodon; pt reports she plans on continuing to be medication compliant. 08/10:Continue plan of care encourage gradual increase 08/11: Continue plan of care with Geodon would try to get patient to accept long-acting injectable would benefit from getting better idea of patient's treatment history is an outpatient has been difficult clarify with patient cannot give the names of outpatient providers or clear treatment history. 08/12: Patient continues to present delusional and paranoid. Pt stated, I have stuff going on that's weird and I don't know what's behind it. Your coworker Adrienne is involved with something being outside my window, threatening me and my family. I don't trust the or police. Also someone was trying to make a horror movie of me at the last hospital while using the cameras . T/W reviewed medications with pt's request; pt stated, I don't need an antipsychotics. You were trying to give me really high dosages of Geodon, like 200 something but now it's correct . T/W explained her dosage was correct,and the manufacture writes numbers on some medications; pt continued to accuse T/W of giving her incorrect dosage. Observed responding to internal stimuli. 08/13: Patient continue to present delusional and paranoid. Refused her morning dose of Geodon. Pt reports she is worried that I have radiation poisoning and will get all of you sick . Patient believes she came to the hospital d/t [facility] being worried that I was going to get their employees in trouble for telling the police they were going to set off a bomb at my last apartment . Patient reports she spoke to her parents yesterday on the phone and feels upset since my parents are not taking the threats seriously and think I'm paranoid. I'm not paranoid! . Patient gives verbal consent to speak with her father but does not want us to speak with her mother. Pt perseverative about various safety concerns and threats. Will reach out to pts father for collateral. 08/14: Pt presents delusional, paranoid, thought blocking. Observed pacing room, talking to self. Responding to internal stimuli. T/W would call patients name, pt would stop, stare at T/W not respond and continue to pace. Pt refused Geodon yesterday and today. to call father today for collateral. 08/15/2023 PATIENT REMAINS GENERALLY NOT CONSISTENTLY TAKING MEDICATION FLORIDLY PARANOID DISORGANIZED THOUGHT BLOCKING AND DIFFICULTY WITH FUNCTIONING. PREOCCUPATION IS REGARDING SOMATIC DELUSIONAL MATERIAL WERE FEARS THAT SHE IS SOMEHOW BEING INJURED OR ATTACKED EITHER BY HOSPITAL OR OTHERS AND PREOCCUPIED WITH THAT SHE WAS ATTACKED ON MULTIPLE OCCASIONS ON OTHERS INCLUDING PAST HOSPITAL AND REPEATEDLY. DOES NOT SEEM TO UNDERSTAND THAT SHE HAS PSYCHIATRIC PSYCHOTIC ILLNESS NOR THAT SHE WOULD BENEFIT FROM ONGOING MEDICATION FOR HER PSYCHIATRIC ILLNESS NOR FOR HER HYPERTENSION GIVEN PATIENT'S MARKED LIMITATION FUNCTIONING FLORID DELUSIONAL CONSISTENT AND CONSTANT PREOCCUPATION MARKED LIMITATIONS IN FUNCTIONING THE SHE SHE WOULD BENEFIT FROM A COMMITMENT AND TREATMENT PLAN TO ADDRESS WHAT HAS BEEN AN ONGOING MARKED IMPAIRMENT IN HER ABILITY TO CARE FOR HERSELF OUTSIDE OF A HOSPITAL SETTING WOULD ULTIMATELY BENEFIT FROM A LONG- ACTING INJECTABLE 08/16- continues to present with complex paranoid and somatic delusions and auditory hallucinations having conversation with someone who is not there. Pt continues to decline medications including lisinopril when SBP in 180's. No capacity to make medical decisions. Impaired judment due to severity of psychiatric symptoms affecting her ability to care for herself. 08/17: Continue current regimen and plans. Continue to encourage in taking her medications 08/19: Conditional voluntary revoked and filed section 7. Continue to encourage taking medications. 08/20: Pt presents delusional, paranoid, thought blocking. Observed staring around room. Responding to internal stimuli. T/W would call patients name, pt would stop, stare at T/W not respond. Pt stated, I'm too poisoned to take anything. I heard some scary staff about the doctor here. I'm scared. I'm worried about the world . Pt did confirm that she is having visual hallucinations today; but would not elaborate. hearing scheduled will try to start long acting inj such as invega 08/21: Patient seen in psychiatric follow-up. Patient anxious somatically preoccupied appears to be intentionally self induce vomiting when asked questions often feeling food is not somehow right medications not somehow right needs much encouragement to take care of herself food fluids intermittent medication acceptance does not seem capable of taking care of herself outside of a hospital setting at this time hearing for commitment and treatment plan schedule for tomorrow patient does not show any insight regarding need for antipsychotic treatment it is potentially stabilizing impact on her life. She did state that she had been stable on Risperdal in the past 08/22:Will try to have conversation regarding starting Invega monitor hemoglobin A1c who patient now here on commitment treatment plan ordered. Will try to engage in treatment 08/23: pt agreeable to risperadol can eventually convert to sustena. on sec 8 tx plan started 08/24: no changes, just started risperdal 08/25:increase risperdal to 2 mg bid 08/26: Patient continues to present delusional and paranoid. Pt stated, someone recently released a book about me. I haven't read it yet . Observed responding to internal stimuil; however denies AH/VH. Continue current tx plan. 08/27: Patient medication compliant last evening and this morning. She continues with paranoid delusions, expressing concern of other peoples safety and people writing about me . Social at times with select peers. 08/28: Patient medication compliant with risperidal today; refused other medications. Continues paranoid, delusional, anxious; she is concerned she will contaminate the water supply if she showers or uses the toliet. Patient stated, I've been peeing and pooping in the pullups that I used for my period. I'm worried about contaminating the water supply . Patient reports she is upset because she believes the court hearing wasn't legal and the [place] order is against the law . Staff will continue to encourage patient to shower. 08/29: Patient continues paranoid, delusional, anxious; she is concerned she will contaminate the water supply if she showers. Pt reports she is now using the toilet and no longer using pull ups, even though I'm still worried about the water system . Patient refused to shower yesterday. Risperidal changed to liquid to avoid cheeking. 08/30: Patient continues paranoid, delusional, anxious; she continues to refused to shower d/t her concern of her radiation contaminating the water supply. Observed talking to self at times. Thought blocking. Pt stated, can you change the medication back to the pill form because I know there is acid being put into the liquid kind . Pt requesting test d/t not feeling right ; test ordered. Patient educated on: medication risk/benefits and therapeutic strategies Informed Consent: understands Reason for continued inpatient stay Substantial Risk for: med/psych decompensation Time Spent With Patient Time: Total time managing care of this patient today _30___ minutes.
--- NOTE | 2023-08-30 18:55 | PC.NURSE ---
Pt called poison control, pt was redirected and instructed by staff not to call that number.
[2023-08-30 19:10] LABS: UPreg QC Valid YES; Urine Pregnancy NEGATIVE (NEGATIVE)
[2023-08-30] MEDS: Propranolol HCL 10 MG TABLET PO (21:40)
[2023-08-31 06:00] VITALS: BP 147/63; PULSE 85; RESP 20; TEMP 36.5; O2SAT 95
[2023-08-31] MEDS: risperiDONE Oral Sol 1 MG/ML SOLUTION 2 MG PO ×2 (09:07→20:38)
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
[2023-08-31 20:34] VITALS: BP 133/73; PULSE 94; RESP 18; TEMP 36.8; O2SAT 97
[2023-09-01 06:00] VITALS: BP 121/71; PULSE 88; RESP 16; TEMP 36.2; O2SAT 97
[2023-09-01 07:45] LABS: Creatinine Clr Calc Pharmacy 127.4; Estimated Glomerular Filt Rate > 60
[2023-09-01] MEDS: risperiDONE Oral Sol 1 MG/ML SOLUTION 2 MG PO ×2 (08:50→21:25)
--- NOTE | 2023-09-01 20:19 | P.PNPSI_ITS ---
Subjective Subjective Date of Service: 09/01/23 Reason For Visit: pt exp delusions, pt denies si/hi, per ems Interim History: similar interview to yesterday. calm until being told she has psychosis, then pt screams at MD that that is not true. meandering, somatically preoccupied, paranoid delusions around poisoning. reports when she was in the shower people were talking and claiming they could see me. i felt very violated. believes there are hidden recording devices in the showers. per staff, asking for physics instructor, then a rabbi. took risperidone. called police yesterday saying staff were talking about giving her a lobotomy. Mental Status Exam Mental Status Exam Narrative: Pt behavior is guarded and laregely calm; dressed in casual attire with unkempt; eye contact appropriate; Speech is normal rate, volume and prosody and not pressured, aside from a brief period of agitation with yelling; no thought blocking, delusional; no SI/HI expressed. mood not the best. Observed responding to internal stimuli; however denies AH/VH. Patients insight and judgment are poor. Diagnostics Vital Signs (24Hr): Vital Signs - 24 hr 08/31/23 20:34 09/01/23 06:00 Temperature 98.2 F 97.2 F Pulse Rate 94 88 Respiratory Rate 18 16 Blood Pressure 133/73 121/71 Pulse Oximetry 97 97 Oxygen Delivery Method Room Air Room Air BMI result Body Mass Index 39.0 Labs 08/16/23 08:46 09/01/23 07:05 Labs: Laboratory Results - last 48 hr 09/01/23 07:05 Creatinine 0.68 Estim Creat Clear Calc 127.4 Estimated GFR > 60 Medications Medications Current Medications Acetaminophen (Acetaminophen 325 Mg Tablet) 650 mg PO Q6H PRN PRN Reason: Headache/Pain Mild Scale (1-3) Al Hydroxide/Mg Hydroxide (Magnesium Hydrox/Alum Hydrox 30 Ml Oral.Susp) 30 ml PO Q6H PRN PRN Reason: Heartburn/Nausea Last Admin: 08/28/23 09:28 Dose: 30 ml Albuterol Sulfate (Albuterol Sulfate 90 Mcg 8 Gm Inhaler) 2 puff INHALE RQ4H PRN PRN Reason: short of breath Clonidine HCl (Clonidine Hcl 0.1 Mg Tablet) 0.1 mg PO BID PRN; Protocol PRN Reason: Anxiety Last Admin: 08/01/23 22:12 Dose: 0.1 mg Hydroxyzine HCl (Hydroxyzine Hcl 25 Mg Tablet) 25 mg PO Q6H PRN PRN Reason: Anxiety Last Admin: 07/31/23 17:01 Dose: 25 mg Lisinopril (Lisinopril 2.5 Mg Tablet) 2.5 mg PO DAILY [facility]; Protocol Last Admin: 09/01/23 08:54 Dose: Not Given Magnesium Hydroxide (Milk Of Magnesia 30 Ml Oral.Susp) 30 ml PO DAILY PRN PRN Reason: Constipation Metformin HCl (Metformin Hcl 1,000 Mg Tablet) 1,000 mg PO BID NAMITA Last Admin: 09/01/23 08:55 Dose: Not Given Olanzapine (Olanzapine 10 Mg Vial) 5 mg IM BID PRN PRN Reason: IF REFUSES PO RISPERADOL Ondansetron HCl (Ondansetron Odt 4 Mg Tab.Rapdis) 4 mg TRANSLINGU Q6H PRN PRN Reason: Nausea and Vomiting Polyethylene Glycol (Polyethylene Glycol 3350 17 Gm Powd.Pack) 17 gm PO DAILY PRN PRN Reason: Constipation Propranolol HCl (Propranolol Hcl 10 Mg Tablet) 10 mg PO BID NAMITA; Protocol Last Admin: 09/01/23 08:55 Dose: Not Given Risperidone (Risperidone Oral Lorena 1 Mg/Ml Solution) 2 mg PO BID [facility] Last Admin: 09/01/23 08:50 Dose: 2 mg Senna/Docusate Sodium (Sennosides/Docusate Sodium Tablet) 1 tab PO BEDTIME [facility] Last Admin: 08/31/23 20:57 Dose: Not Given Trazodone HCl (Trazodone Hcl 50 Mg Tablet) 50 mg PO BEDTIME MRX1 PRN PRN Reason: Insomnia Allergies Allergies Allergy/AdvReac Type Severity Reaction Status Date / Time clotrimazole Allergy Severe Rash Verified 09/23/22 02:18 Assessment & Plan Assessment & Plan (1) Schizoaffective disorder: Status: Acute Code(s): F25.9 - Schizoaffective disorder, unspecified Plan Patient is a 27 year old female (they/them) with hx of Schizoaffective d/o who presented to [facility] [place] with paranoia, delusions throughout the day which resulted in them calling the police to report a bomb threat on their old apartment building secondary to medication non-compliance. Plan: CV 15 minute safety checks Continue home medications Obtain collateral Discuss starting on mood stabilizer 08/01: Pt presents disorganized with thought blocking. Observed responding to internal stimuli, keeping to self. Pt stated, I'm struggling but whatever. There are too many threats in my life right now and it's making me confused. I'm worried about a lot of people. I'm struggling to explain . Patient reports she believes she has been wire tapped by the news . med compliant. Increased: Geodon to 60mg PO BID 08/02: Pt presents disorganized with thought blocking; conversation is more fluid today after receiving Haldol 5mg PO once and Ativan 1mg PO once yesterday. Observed responding to internal stimuli, keeping to self. Patient denies AH and stated, I usually talk to myself. I'm making a lot of social mistakes here . Patient stated, I'm feeling stressed out. I don't know how to explain it . Patient reports visual hallucinations of a bunch of stuff but could not elaborate. Denies SI/HI. Given another one time dose of Haldol 5mg PO and Ativan 1mg PO. Continue current tx plan. 08/03: no current changes 08/04: no changes 08/05: Increased Geodon to 60mg PO BID. Patient presents alert and oriented today. She is able to state the name of the hospital, the correct month, year, president. However she does present with delusions stating, the last hospital I was at put snakes inside of me and I need to get them removed. I don't need to be on the psychiatric side; I need to be on the medical side of the hospital . Patient reports having visual hallucinations that are distracting but they are not negatively effecting my ability to function . Patient keeping to self, isolative to room. Patient will stop mid-sentence and become distracted by visual hallucinations; she did not elaborate on what they were. Patient reports she would be accepting with an increase in her Geodon and gave verbal permission for T/W to speak with her father. Patient encouraged to consider a JEFF; pt reports other providers have also brought up this topic and would like to consider this option. denies SI/HI/AH 08/06: Patient keeping to self, isolative to room. Presents with thought blocking, not eating unless prompted by staff. Refused medications despite staff encouragement. Observed responding to internal stimuli. Pt continues to believe there is a snake in her body that was placed by last hospitalization. Continue current tx plan. Consider filing Section 7&8 if pt does not improve d/t safety concerns. 08/08: Patient met with [facility] nurse case manager and T/W today. Presents with thought blocking, paranoia, delusional. Believes we are trying to poison her with medications; believes people are spreading rumors about her. Unable to focus on conversation d/t perceptual disturbances. Observed looking around the room, talking to self, pt's name must be called multiple times before responding and stating what? I didn't hear you . She reports she would like to go to a nursing home after being discharged from hospital. We discussed benefits of JEFF; T/W informed her that her father also mentioned that he would prefer patient to receive JEFF. Pt then shouted, My father would never say that! Someone is impersonating him! . Continues to believe there was a snake placed inside of her body by last hospital. Not eating unless prompted by staff. Refused medications despite staff encouragement. Will file on patient tomorrow if continues with medication noncompliance. 08/09: Patient continues to present disorganized and delusional. pt stated, I'm worried about the people in my life.The first night I was here,someone was outside my window and threatening me and my family . Pt did take Geodon 80mg PO today d/t pharmacy being able to obtain pill that has 80 printed on it; previous pills had various numbers on pill, which made patient believe she was being givan a very high dosage. She continues to refuse some of her medications. Observed responding to internal stimuli. Will not file on patient d/t starting to take Geodon; pt reports she plans on continuing to be medication compliant. 08/10:Continue plan of care encourage gradual increase 08/11: Continue plan of care with Geodon would try to get patient to accept long-acting injectable would benefit from getting better idea of patient's treatment history is an outpatient has been difficult clarify with patient cannot give the names of outpatient providers or clear treatment history. 08/12: Patient continues to present delusional and paranoid. Pt stated, I have stuff going on that's weird and I don't know what's behind it. Your coworker Adrienne is involved with something being outside my window, threatening me and my family. I don't trust the or police. Also someone was trying to make a horror movie of me at the last hospital while using the cameras . T/W reviewed medications with pt's request; pt stated, I don't need an antipsychotics. You were trying to give me really high dosages of Geodon, like 200 something but now it's correct . T/W explained her dosage was correct,and the manufacture writes numbers on some medications; pt continued to accuse T/W of giving her incorrect dosage. Observed responding to internal stimuli. 08/13: Patient continue to present delusional and paranoid. Refused her morning dose of Geodon. Pt reports she is worried that I have radiation poisoning and will get all of you sick . Patient believes she came to the hospital d/t [facility] being worried that I was going to get their employees in trouble for telling the police they were going to set off a bomb at my last apartment . Patient reports she spoke to her parents yesterday on the phone and feels upset since my parents are not taking the threats seriously and think I'm paranoid. I'm not paranoid! . Patient gives verbal consent to speak with her father but does not want us to speak with her mother. Pt perseverative about various safety concerns and threats. Will reach out to pts father for collateral. 08/14: Pt presents delusional, paranoid, thought blocking. Observed pacing room, talking to self. Responding to internal stimuli. T/W would call patients name, pt would stop, stare at T/W not respond and continue to pace. Pt refused Geodon yesterday and today. to call father today for collateral. 08/15/2023 PATIENT REMAINS GENERALLY NOT CONSISTENTLY TAKING MEDICATION FLORIDLY PARANOID DISORGANIZED THOUGHT BLOCKING AND DIFFICULTY WITH FUNCTIONING. PREOCCUPATION IS REGARDING SOMATIC DELUSIONAL MATERIAL WERE FEARS THAT SHE IS SOMEHOW BEING INJURED OR ATTACKED EITHER BY HOSPITAL OR OTHERS AND PREOCCUPIED WITH THAT SHE WAS ATTACKED ON MULTIPLE OCCASIONS ON OTHERS INCLUDING PAST HOSPITAL AND REPEATEDLY. DOES NOT SEEM TO UNDERSTAND THAT SHE HAS PSYCHIATRIC PSYCHOTIC ILLNESS NOR THAT SHE WOULD BENEFIT FROM ONGOING MEDICATION FOR HER PSYCHIATRIC ILLNESS NOR FOR HER HYPERTENSION GIVEN PATIENT'S MARKED LIMITATION FUNCTIONING FLORID DELUSIONAL CONSISTENT AND CONSTANT PREOCCUPATION MARKED LIMITATIONS IN FUNCTIONING THE SHE SHE WOULD BENEFIT FROM A COMMITMENT AND TREATMENT PLAN TO ADDRESS WHAT HAS BEEN AN ONGOING MARKED IMPAIRMENT IN HER ABILITY TO CARE FOR HERSELF OUTSIDE OF A HOSPITAL SETTING WOULD ULTIMATELY BENEFIT FROM A LONG- ACTING INJECTABLE 08/16- continues to present with complex paranoid and somatic delusions and auditory hallucinations having conversation with someone who is not there. Pt continues to decline medications including lisinopril when SBP in 180's. No capacity to make medical decisions. Impaired judment due to severity of psychiatric symptoms affecting her ability to care for herself. 08/17: Continue current regimen and plans. Continue to encourage in taking her medications 08/19: Conditional voluntary revoked and filed section 7. Continue to encourage taking medications. 08/20: Pt presents delusional, paranoid, thought blocking. Observed staring around room. Responding to internal stimuli. T/W would call patients name, pt would stop, stare at T/W not respond. Pt stated, I'm too poisoned to take anything. I heard some scary staff about the doctor here. I'm scared. I'm worried about the world . Pt did confirm that she is having visual hallucinations today; but would not elaborate. hearing scheduled will try to start long acting inj such as invega 08/21: Patient seen in psychiatric follow-up. Patient anxious somatically preoccupied appears to be intentionally self induce vomiting when asked questions often feeling food is not somehow right medications not somehow right needs much encouragement to take care of herself food fluids intermittent medication acceptance does not seem capable of taking care of herself outside of a hospital setting at this time hearing for commitment and treatment plan schedule for tomorrow patient does not show any insight regarding need for antipsychotic treatment it is potentially stabilizing impact on her life. She did state that she had been stable on Risperdal in the past 08/22:Will try to have conversation regarding starting Invega monitor hemoglobin A1c who patient now here on commitment treatment plan ordered. Will try to engage in treatment 08/23: pt agreeable to risperadol can eventually convert to sustena. on sec 8 tx plan started 08/24: no changes, just started risperdal 08/25:increase risperdal to 2 mg bid 08/26: Patient continues to present delusional and paranoid. Pt stated, someone recently released a book about me. I haven't read it yet . Observed responding to internal stimuil; however denies AH/VH. Continue current tx plan. 08/27: Patient medication compliant last evening and this morning. She continues with paranoid delusions, expressing concern of other peoples safety and people writing about me . Social at times with select peers. 08/28: Patient medication compliant with risperidal today; refused other medications. Continues paranoid, delusional, anxious; she is concerned she will contaminate the water supply if she showers or uses the toliet. Patient stated, I've been peeing and pooping in the pullups that I used for my period. I'm worried about contaminating the water supply . Patient reports she is upset because she believes the court hearing wasn't legal and the [place] order is against the law . Staff will continue to encourage patient to shower. 08/29: Patient continues paranoid, delusional, anxious; she is concerned she will contaminate the water supply if she showers. Pt reports she is now using the toilet and no longer using pull ups, even though I'm still worried about the water system . Patient refused to shower yesterday. Risperidal changed to liquid to avoid cheeking. 08/30: Patient continues paranoid, delusional, anxious; she continues to refused to shower d/t her concern of her radiation contaminating the water supply. Observed talking to self at times. Thought blocking. Pt stated, can you change the medication back to the pill form because I know there is acid being put into the liquid kind . Pt requesting test d/t not feeling right ; test ordered. 08/31: paranoid delusions, labile. taking meds. informed she is not prescribed benzoic acid. somatic complaints of several days ago. continue current mgmt. 09/01: no change in presentation from yesterday. declined to consider mood stabilizer trial. continue current Tx. Reason for continued inpatient stay Substantial Risk for: inability to function and rapid decompensation Time Spent With Patient Time: Total time managing care of this patient today __25__ minutes.
[2023-09-01 21:23] VITALS: BP 135/63; PULSE 89; TEMP 36.3; O2SAT 97
[2023-09-02 07:37] VITALS: BP 128/67; PULSE 65; RESP 14; TEMP 36.3; O2SAT 98
[2023-09-02] MEDS: risperiDONE Oral Sol 1 MG/ML SOLUTION 2 MG PO ×2 (12:07→19:09)
[2023-09-02 12:27] LABS: Glucose, Whole Blood 150 mg/dL (60-115)
--- NOTE | 2023-09-02 19:52 | HO.PSYCHPN ---
Subjective Subjective Date of Service: 09/02/23 Reason For Visit: Bizarre delusions agitation Subjective Notes: Section 8 Healthcare Proxy: No Interim History: pt has been out of her room more refusing medication feels being poisoned medically ill taking risperadol liquid remains psychotic agitated Medication Compliance: Intermittent Mental Status Exam Mental Status Exam Narrative: Patient seen initially internally preoccupied becomes labile quite upset with this designer/writer stating she is medically ill that is why she can not take her medication again stating the Geodon was not Geodon at times yelling stating she just has depression PTSD denies SI alert Not aggressive marked lack of insight fair impulse control Diagnostics Vital Signs (24Hr): Vital Signs - 24 hr 09/01/23 21:23 09/02/23 07:37 Temperature 97.3 F 97.4 F Pulse Rate 89 65 Respiratory Rate 14 Blood Pressure 135/63 128/67 Pulse Oximetry 97 98 Oxygen Delivery Method Room Air Room Air BMI result Body Mass Index 39.0 Labs 08/16/23 08:46 09/01/23 07:05 Labs: Laboratory Results - last 48 hr 09/01/23 09/02/23 07:05 12:22 Creatinine 0.68 Estim Creat Clear Calc 127.4 Estimated GFR > 60 POC Glucose 150 H Medications Medications Current Medications Acetaminophen (Acetaminophen 325 Mg Tablet) 650 mg PO Q6H PRN PRN Reason: Headache/Pain Mild Scale (1-3) Al Hydroxide/Mg Hydroxide (Magnesium Hydrox/Alum Hydrox 30 Ml Oral.Susp) 30 ml PO Q6H PRN PRN Reason: Heartburn/Nausea Last Admin: 08/28/23 09:28 Dose: 30 ml Albuterol Sulfate (Albuterol Sulfate 90 Mcg 8 Gm Inhaler) 2 puff INHALE RQ4H PRN PRN Reason: short of breath Clonidine HCl (Clonidine Hcl 0.1 Mg Tablet) 0.1 mg PO BID PRN; Protocol PRN Reason: Anxiety Last Admin: 08/01/23 22:12 Dose: 0.1 mg Hydroxyzine HCl (Hydroxyzine Hcl 25 Mg Tablet) 25 mg PO Q6H PRN PRN Reason: Anxiety Last Admin: 07/31/23 17:01 Dose: 25 mg Lisinopril (Lisinopril 2.5 Mg Tablet) 2.5 mg PO DAILY NAMITA; Protocol Last Admin: 09/02/23 12:13 Dose: Not Given Magnesium Hydroxide (Milk Of Magnesia 30 Ml Oral.Susp) 30 ml PO DAILY PRN PRN Reason: Constipation Metformin HCl (Metformin Hcl 1,000 Mg Tablet) 1,000 mg PO BID [facility] Last Admin: 09/02/23 12:13 Dose: Not Given Olanzapine (Olanzapine 10 Mg Vial) 5 mg IM BID PRN PRN Reason: IF REFUSES PO RISPERADOL Ondansetron HCl (Ondansetron Odt 4 Mg Tab.Rapdis) 4 mg TRANSLINGU Q6H PRN PRN Reason: Nausea and Vomiting Polyethylene Glycol (Polyethylene Glycol 3350 17 Gm Powd.Pack) 17 gm PO DAILY PRN PRN Reason: Constipation Propranolol HCl (Propranolol Hcl 10 Mg Tablet) 10 mg PO BID [facility]; Protocol Last Admin: 09/02/23 12:14 Dose: Not Given Risperidone (Risperidone Oral Lorena 1 Mg/Ml Solution) 2 mg PO BID [facility] Last Admin: 09/02/23 19:09 Dose: 2 mg Senna/Docusate Sodium (Sennosides/Docusate Sodium Tablet) 1 tab PO BEDTIME [facility] Last Admin: 09/01/23 21:33 Dose: Not Given Trazodone HCl (Trazodone Hcl 50 Mg Tablet) 50 mg PO BEDTIME MRX1 PRN PRN Reason: Insomnia Allergies Allergies Allergy/AdvReac Type Severity Reaction Status Date / Time clotrimazole Allergy Severe Rash Verified 09/23/22 02:18 Assessment & Plan Assessment & Plan (1) Schizoaffective disorder: Status: Acute Code(s): F25.9 - Schizoaffective disorder, unspecified Plan Patient is a 27 year old female (they/them) with hx of Schizoaffective d/o who presented to [facility] with paranoia, delusions throughout the day which resulted in them calling the police to report a bomb threat on their old apartment building secondary to medication non-compliance. Plan: CV 15 minute safety checks Continue home medications Obtain collateral Discuss starting on mood stabilizer 08/01: Pt presents disorganized with thought blocking. Observed responding to internal stimuli, keeping to self. Pt stated, I'm struggling but whatever. There are too many threats in my life right now and it's making me confused. I'm worried about a lot of people. I'm struggling to explain . Patient reports she believes she has been wire tapped by the news . med compliant. Increased: Geodon to 60mg PO BID 08/02: Pt presents disorganized with thought blocking; conversation is more fluid today after receiving Haldol 5mg PO once and Ativan 1mg PO once yesterday. Observed responding to internal stimuli, keeping to self. Patient denies AH and stated, I usually talk to myself. I'm making a lot of social mistakes here . Patient stated, I'm feeling stressed out. I don't know how to explain it . Patient reports visual hallucinations of a bunch of stuff but could not elaborate. Denies SI/HI. Given another one time dose of Haldol 5mg PO and Ativan 1mg PO. Continue current tx plan. 08/03: no current changes 08/04: no changes 08/05: Increased Geodon to 60mg PO BID. Patient presents alert and oriented today. She is able to state the name of the hospital, the correct month, year, president. However she does present with delusions stating, the last hospital I was at put snakes inside of me and I need to get them removed. I don't need to be on the psychiatric side; I need to be on the medical side of the hospital . Patient reports having visual hallucinations that are distracting but they are not negatively effecting my ability to function . Patient keeping to self, isolative to room. Patient will stop mid-sentence and become distracted by visual hallucinations; she did not elaborate on what they were. Patient reports she would be accepting with an increase in her Geodon and gave verbal permission for T/W to speak with her father. Patient encouraged to consider a JEFF; pt reports other providers have also brought up this topic and would like to consider this option. denies SI/HI/AH 08/06: Patient keeping to self, isolative to room. Presents with thought blocking, not eating unless prompted by staff. Refused medications despite staff encouragement. Observed responding to internal stimuli. Pt continues to believe there is a snake in her body that was placed by last hospitalization. Continue current tx plan. Consider filing Section 7&8 if pt does not improve d/t safety concerns. 08/08: Patient met with [facility] director of casework and T/W today. Presents with thought blocking, paranoia, delusional. Believes we are trying to poison her with medications; believes people are spreading rumors about her. Unable to focus on conversation d/t perceptual disturbances. Observed looking around the room, talking to self, pt's name must be called multiple times before responding and stating what? I didn't hear you . She reports she would like to go to a senior care after being discharged from hospital. We discussed benefits of JEFF; T/W informed her that her father also mentioned that he would prefer patient to receive JEFF. Pt then shouted, My father would never say that! Someone is impersonating him! . Continues to believe there was a snake placed inside of her body by last hospital. Not eating unless prompted by staff. Refused medications despite staff encouragement. Will file on patient tomorrow if continues with medication noncompliance. 08/09: Patient continues to present disorganized and delusional. pt stated, I'm worried about the people in my life.The first night I was here,someone was outside my window and threatening me and my family . Pt did take Geodon 80mg PO today d/t pharmacy being able to obtain pill that has 80 printed on it; previous pills had various numbers on pill, which made patient believe she was being givan a very high dosage. She continues to refuse some of her medications. Observed responding to internal stimuli. Will not file on patient d/t starting to take Geodon; pt reports she plans on continuing to be medication compliant. 08/10:Continue plan of care encourage gradual increase 08/11: Continue plan of care with Geodon would try to get patient to accept long-acting injectable would benefit from getting better idea of patient's treatment history is an outpatient has been difficult clarify with patient cannot give the names of outpatient providers or clear treatment history. 08/12: Patient continues to present delusional and paranoid. Pt stated, I have stuff going on that's weird and I don't know what's behind it. Your coworker Adrienne is involved with something being outside my window, threatening me and my family. I don't trust the or police. Also someone was trying to make a horror movie of me at the last hospital while using the cameras . T/W reviewed medications with pt's request; pt stated, I don't need an antipsychotics. You were trying to give me really high dosages of Geodon, like 200 something but now it's correct . T/W explained her dosage was correct,and the manufacture writes numbers on some medications; pt continued to accuse T/W of giving her incorrect dosage. Observed responding to internal stimuli. 08/13: Patient continue to present delusional and paranoid. Refused her morning dose of Geodon. Pt reports she is worried that I have radiation poisoning and will get all of you sick . Patient believes she came to the hospital d/t [facility] being worried that I was going to get their employees in trouble for telling the police they were going to set off a bomb at my last apartment . Patient reports she spoke to her parents yesterday on the phone and feels upset since my parents are not taking the threats seriously and think I'm paranoid. I'm not paranoid! . Patient gives verbal consent to speak with her father but does not want us to speak with her mother. Pt perseverative about various safety concerns and threats. Will reach out to pts father for collateral. 08/14: Pt presents delusional, paranoid, thought blocking. Observed pacing room, talking to self. Responding to internal stimuli. T/W would call patients name, pt would stop, stare at T/W not respond and continue to pace. Pt refused Geodon yesterday and today. to call father today for collateral. 08/15/2023 PATIENT REMAINS GENERALLY NOT CONSISTENTLY TAKING MEDICATION FLORIDLY PARANOID DISORGANIZED THOUGHT BLOCKING AND DIFFICULTY WITH FUNCTIONING. PREOCCUPATION IS REGARDING SOMATIC DELUSIONAL MATERIAL WERE FEARS THAT SHE IS SOMEHOW BEING INJURED OR ATTACKED EITHER BY HOSPITAL OR OTHERS AND PREOCCUPIED WITH THAT SHE WAS ATTACKED ON MULTIPLE OCCASIONS ON OTHERS INCLUDING PAST HOSPITAL AND REPEATEDLY. DOES NOT SEEM TO UNDERSTAND THAT SHE HAS PSYCHIATRIC PSYCHOTIC ILLNESS NOR THAT SHE WOULD BENEFIT FROM ONGOING MEDICATION FOR HER PSYCHIATRIC ILLNESS NOR FOR HER HYPERTENSION GIVEN PATIENT'S MARKED LIMITATION FUNCTIONING FLORID DELUSIONAL CONSISTENT AND CONSTANT PREOCCUPATION MARKED LIMITATIONS IN FUNCTIONING THE SHE SHE WOULD BENEFIT FROM A COMMITMENT AND TREATMENT PLAN TO ADDRESS WHAT HAS BEEN AN ONGOING MARKED IMPAIRMENT IN HER ABILITY TO CARE FOR HERSELF OUTSIDE OF A HOSPITAL SETTING WOULD ULTIMATELY BENEFIT FROM A LONG-ACTING INJECTABLE 08/16- continues to present with complex paranoid and somatic delusions and auditory hallucinations having conversation with someone who is not there. Pt continues to decline medications including lisinopril when SBP in 180's. No capacity to make medical decisions. Impaired judment due to severity of psychiatric symptoms affecting her ability to care for herself. 08/17: Continue current regimen and plans. Continue to encourage in taking her medications 08/19: Conditional voluntary revoked and filed section 7. Continue to encourage taking medications. 08/20: Pt presents delusional, paranoid, thought blocking. Observed staring around room. Responding to internal stimuli. T/W would call patients name, pt would stop, stare at T/W not respond. Pt stated, I'm too poisoned to take anything. I heard some scary staff about the doctor here. I'm scared. I'm worried about the world . Pt did confirm that she is having visual hallucinations today; but would not elaborate. hearing scheduled will try to start long acting inj such as invega 08/21: Patient seen in psychiatric follow-up. Patient anxious somatically preoccupied appears to be intentionally self induce vomiting when asked questions often feeling food is not somehow right medications not somehow right needs much encouragement to take care of herself food fluids intermittent medication acceptance does not seem capable of taking care of herself outside of a hospital setting at this time hearing for commitment and treatment plan schedule for tomorrow patient does not show any insight regarding need for antipsychotic treatment it is potentially stabilizing impact on her life. She did state that she had been stable on Risperdal in the past 08/22:Will try to have conversation regarding starting Invega monitor hemoglobin A1c who patient now here on commitment treatment plan ordered. Will try to engage in treatment 08/23: pt agreeable to risperadol can eventually convert to sustena. on sec 8 tx plan started 08/24: no changes, just started risperdal 08/25:increase risperdal to 2 mg bid 08/26: Patient continues to present delusional and paranoid. Pt stated, someone recently released a book about me. I haven't read it yet . Observed responding to internal stimuil; however denies AH/VH. Continue current tx plan. 08/27: Patient medication compliant last evening and this morning. She continues with paranoid delusions, expressing concern of other peoples safety and people writing about me . Social at times with select peers. 08/28: Patient medication compliant with risperidal today; refused other medications. Continues paranoid, delusional, anxious; she is concerned she will contaminate the water supply if she showers or uses the toliet. Patient stated, I've been peeing and pooping in the pullups that I used for my period. I'm worried about contaminating the water supply . Patient reports she is upset because she believes the court hearing wasn't legal and the [place] order is against the law . Staff will continue to encourage patient to shower. 08/29: Patient continues paranoid, delusional, anxious; she is concerned she will contaminate the water supply if she showers. Pt reports she is now using the toilet and no longer using pull ups, even though I'm still worried about the water system . Patient refused to shower yesterday. Risperidal changed to liquid to avoid cheeking. 08/30: Patient continues paranoid, delusional, anxious; she continues to refused to shower d/t her concern of her radiation contaminating the water supply. Observed talking to self at times. Thought blocking. Pt stated, can you change the medication back to the pill form because I know there is acid being put into the liquid kind . Pt requesting test d/t not feeling right ; test ordered. 08/31: paranoid delusions, labile. taking meds. informed she is not prescribed benzoic acid. somatic complaints of several days ago. continue current mgmt. 09/01: no change in presentation from yesterday. declined to consider mood stabilizer trial. continue current Tx. 09/02/23 Pt psychotic agaited intermittently refusing medical medications starts choking when she is being offered medication has been taking Risperdal Liquid no response to mg b.i.d. will check level patient did state at 1 point that earlier in her life she had responded to Risperdal may need higher doses Staff is checking for cheeking Patient educated on: diagnosis Informed Consent: does not understand Reason for continued inpatient stay Substantial Risk for: inability to function and rapid decompensation Time Spent With Patient Time: Total time managing care of this patient today _30___ minutes.
[2023-09-02 20:15] VITALS: BP 158/89; PULSE 103; TEMP 36.2; O2SAT 97
[2023-09-03 08:30] VITALS: BP 124/94; PULSE 89; RESP 18; TEMP 36.3; O2SAT 96
[2023-09-03] MEDS: metFORMIN HCl 1,000 MG TABLET 1000 MG PO (08:48)
[2023-09-03] MEDS: risperiDONE Oral Sol 1 MG/ML SOLUTION 2 MG PO ×2 (08:48→21:03)
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
[2023-09-03 20:45] VITALS: BP 124/86; PULSE 104; RESP 18; TEMP 36.4; O2SAT 96
[2023-09-04] MEDS: risperiDONE Oral Sol 1 MG/ML SOLUTION 2 MG PO (08:31)
[2023-09-04] MEDS: metFORMIN HCl 1,000 MG TABLET 1000 MG PO (08:31)
[2023-09-04 08:32] VITALS: BP 129/80; PULSE 90; RESP 16; TEMP 36.5; O2SAT 95
--- NOTE | 2023-09-04 09:52 | P.PNPSI_ITS ---
Subjective Subjective Date of Service: 09/04/23 Reason For Visit: Bizarre delusions agitation Subjective Notes: Section 8 Interim History: Reviewed in team and . Pt refused labs yesterday; allowed today; waiting results. Continues delusional, paranoid, perseverative regarding cameras in the showers . Patient stated, I'm taking my risperidal and metformin; I don't need any other medications . Medication Compliance: Intermittent Side effects from medications: No Attending Groups: Intermittent Review of Systems Constitutional: Reports as per HPI Eyes: Reports as per HPI Reports as per HPI Cardiovascular: Reports as per HPI Respiratory: Reports as per HPI Gastrointestinal: Reports as per HPI Genitourinary: Reports as per HPI Musculoskeletal: Reports as per HPI Skin/Breast: Reports as per HPI Reports as per HPI Psychiatric: Reports as per HPI Endocrine: Reports as per HPI Hematologic/Lymphatic: Reports as per HPI Allergic/Immunologic: Reports as per HPI Mental Status Exam Mental Status Exam Narrative: Pt behavior is cooperative and calm;poor hygiene; mood is described as stressed ; eye contact appropriate; Speech is normal rate, volume and prosody and not pressured; no psychomotor agitation/retardation present; perseverative, ruminating; delusional, paranoid; denies any SI/HI/AH/VH. Patients insight and judgment are poor. Diagnostics Vital Signs (24Hr): Vital Signs - 24 hr 09/03/23 20:45 09/04/23 08:32 Temperature 97.5 F 97.7 F Pulse Rate 104 H 90 Respiratory Rate 18 16 Blood Pressure 124/86 129/80 Pulse Oximetry 96 95 Oxygen Delivery Method Room Air Room Air BMI result Body Mass Index 39.0 Labs 08/16/23 08:46 09/01/23 07:05 Labs: Laboratory Results - last 48 hr 09/02/23 12:22 POC Glucose 150 H Medications Medications Current Medications Acetaminophen (Acetaminophen 325 Mg Tablet) 650 mg PO Q6H PRN PRN Reason: Headache/Pain Mild Scale (1-3) Al Hydroxide/Mg Hydroxide (Magnesium Hydrox/Alum Hydrox 30 Ml Oral.Susp) 30 ml PO Q6H PRN PRN Reason: Heartburn/Nausea Last Admin: 08/28/23 09:28 Dose: 30 ml Albuterol Sulfate (Albuterol Sulfate 90 Mcg 8 Gm Inhaler) 2 puff INHALE RQ4H PRN PRN Reason: short of breath Clonidine HCl (Clonidine Hcl 0.1 Mg Tablet) 0.1 mg PO BID PRN; Protocol PRN Reason: Anxiety Last Admin: 08/01/23 22:12 Dose: 0.1 mg Hydroxyzine HCl (Hydroxyzine Hcl 25 Mg Tablet) 25 mg PO Q6H PRN PRN Reason: Anxiety Last Admin: 07/31/23 17:01 Dose: 25 mg Lisinopril (Lisinopril 2.5 Mg Tablet) 2.5 mg PO DAILY [facility]; Protocol Last Admin: 09/04/23 08:53 Dose: Not Given Magnesium Hydroxide (Milk Of Magnesia 30 Ml Oral.Susp) 30 ml PO DAILY PRN PRN Reason: Constipation Metformin HCl (Metformin Hcl 1,000 Mg Tablet) 1,000 mg PO BID [facility] Last Admin: 09/04/23 08:31 Dose: 1,000 mg Olanzapine (Olanzapine 10 Mg Vial) 5 mg IM BID PRN PRN Reason: IF REFUSES PO RISPERADOL Ondansetron HCl (Ondansetron Odt 4 Mg Tab.Rapdis) 4 mg TRANSLINGU Q6H PRN PRN Reason: Nausea and Vomiting Polyethylene Glycol (Polyethylene Glycol 3350 17 Gm Powd.Pack) 17 gm PO DAILY PRN PRN Reason: Constipation Propranolol HCl (Propranolol Hcl 10 Mg Tablet) 10 mg PO BID [facility]; Protocol Last Admin: 09/03/23 21:26 Dose: Not Given Risperidone (Risperidone Oral Lorena 1 Mg/Ml Solution) 2 mg PO BID [facility] Last Admin: 09/04/23 08:31 Dose: 2 mg Senna/Docusate Sodium (Sennosides/Docusate Sodium Tablet) 1 tab PO BEDTIME [facility] Last Admin: 09/03/23 21:26 Dose: Not Given Trazodone HCl (Trazodone Hcl 50 Mg Tablet) 50 mg PO BEDTIME MRX1 PRN PRN Reason: Insomnia Allergies Allergies Allergy/AdvReac Type Severity Reaction Status Date / Time clotrimazole Allergy Severe Rash Verified 09/23/22 02:18 Assessment & Plan Assessment & Plan (1) Schizoaffective disorder: Status: Acute Code(s): F25.9 - Schizoaffective disorder, unspecified Plan Patient is a 27 year old female (they/them) with hx of Schizoaffective d/o who presented to [facility] with paranoia, delusions throughout the day which resulted in them calling the police to report a bomb threat on their old apartment building secondary to medication non-compliance. Plan: CV 15 minute safety checks Continue home medications Obtain collateral Discuss starting on mood stabilizer 08/01: Pt presents disorganized with thought blocking. Observed responding to internal stimuli, keeping to self. Pt stated, I'm struggling but whatever. There are too many threats in my life right now and it's making me confused. I'm worried about a lot of people. I'm struggling to explain . Patient reports she believes she has been wire tapped by the news . med compliant. Increased: Geodon to 60mg PO BID 08/02: Pt presents disorganized with thought blocking; conversation is more fluid today after receiving Haldol 5mg PO once and Ativan 1mg PO once yesterday. Observed responding to internal stimuli, keeping to self. Patient denies AH and stated, I usually talk to myself. I'm making a lot of social mistakes here . Patient stated, I'm feeling stressed out. I don't know how to explain it . Patient reports visual hallucinations of a bunch of stuff but could not elaborate. Denies SI/HI. Given another one time dose of Haldol 5mg PO and Ativan 1mg PO. Continue current tx plan. 08/03: no current changes 08/04: no changes 08/05: Increased Geodon to 60mg PO BID. Patient presents alert and oriented today. She is able to state the name of the hospital, the correct month, year, president. However she does present with delusions stating, the last hospital I was at put snakes inside of me and I need to get them removed. I don't need to be on the psychiatric side; I need to be on the medical side of the hospital . Patient reports having visual hallucinations that are distracting but they are not negatively effecting my ability to function . Patient keeping to self, isolative to room. Patient will stop mid-sentence and become distracted by visual hallucinations; she did not elaborate on what they were. Patient reports she would be accepting with an increase in her Geodon and gave verbal permission for T/W to speak with her father. Patient encouraged to consider a JEFF; pt reports other providers have also brought up this topic and would like to consider this option. denies SI/HI/AH 08/06: Patient keeping to self, isolative to room. Presents with thought blocking, not eating unless prompted by staff. Refused medications despite staff encouragement. Observed responding to internal stimuli. Pt continues to believe there is a snake in her body that was placed by last hospitalization. Continue current tx plan. Consider filing Section 7&8 if pt does not improve d/t safety concerns. 08/08: Patient met with [facility] insurance case manager and T/W today. Presents with thought blocking, paranoia, delusional. Believes we are trying to poison her with medications; believes people are spreading rumors about her. Unable to focus on conversation d/t perceptual disturbances. Observed looking around the room, talking to self, pt's name must be called multiple times before responding and stating what? I didn't hear you . She reports she would like to go to a [facility] after being discharged from hospital. We discussed benefits of JEFF; T/W informed her that her father also mentioned that he would prefer patient to receive JEFF. Pt then shouted, My father would never say that! Someone is impersonating him! . Continues to believe there was a snake placed inside of her body by last hospital. Not eating unless prompted by staff. Refused medications despite staff encouragement. Will file on patient tomorrow if continues with medication noncompliance. 08/09: Patient continues to present disorganized and delusional. pt stated, I'm worried about the people in my life.The first night I was here,someone was outside my window and threatening me and my family . Pt did take Geodon 80mg PO today d/t pharmacy being able to obtain pill that has 80 printed on it; previous pills had various numbers on pill, which made patient believe she was being givan a very high dosage. She continues to refuse some of her medications. Observed responding to internal stimuli. Will not file on patient d/t starting to take Geodon; pt reports she plans on continuing to be medication compliant. 08/10:Continue plan of care encourage gradual increase 08/11: Continue plan of care with Geodon would try to get patient to accept long-acting injectable would benefit from getting better idea of patient's treatment history is an outpatient has been difficult clarify with patient cannot give the names of outpatient providers or clear treatment history. 08/12: Patient continues to present delusional and paranoid. Pt stated, I have stuff going on that's weird and I don't know what's behind it. Your coworker Adrienne is involved with something being outside my window, threatening me and my family. I don't trust the or police. Also someone was trying to make a horror movie of me at the last hospital while using the cameras . T/W reviewed medications with pt's request; pt stated, I don't need an antipsychotics. You were trying to give me really high dosages of Geodon, like 200 something but now it's correct . T/W explained her dosage was correct,and the manufacture writes numbers on some medications; pt continued to accuse T/W of giving her incorrect dosage. Observed responding to internal stimuli. 08/13: Patient continue to present delusional and paranoid. Refused her morning dose of Geodon. Pt reports she is worried that I have radiation poisoning and will get all of you sick . Patient believes she came to the hospital d/t [facility] being worried that I was going to get their employees in trouble for telling the police they were going to set off a bomb at my last apartment . Patient reports she spoke to her parents yesterday on the phone and feels upset since my parents are not taking the threats seriously and think I'm paranoid. I'm not paranoid! . Patient gives verbal consent to speak with her father but does not want us to speak with her mother. Pt perseverative about various safety concerns and threats. Will reach out to pts father for collateral. 08/14: Pt presents delusional, paranoid, thought blocking. Observed pacing room, talking to self. Responding to internal stimuli. T/W would call patients name, pt would stop, stare at T/W not respond and continue to pace. Pt refused Geodon yesterday and today. to call father today for collateral. 08/15/2023 PATIENT REMAINS GENERALLY NOT CONSISTENTLY TAKING MEDICATION FLORIDLY PARANOID DISORGANIZED THOUGHT BLOCKING AND DIFFICULTY WITH FUNCTIONING. PREOCCUPATION IS REGARDING SOMATIC DELUSIONAL MATERIAL WERE FEARS THAT SHE IS SOMEHOW BEING INJURED OR ATTACKED EITHER BY HOSPITAL OR OTHERS AND PREOCCUPIED WITH THAT SHE WAS ATTACKED ON MULTIPLE OCCASIONS ON OTHERS INCLUDING PAST HOSPITAL AND REPEATEDLY. DOES NOT SEEM TO UNDERSTAND THAT SHE HAS PSYCHIATRIC PSYCHOTIC ILLNESS NOR THAT SHE WOULD BENEFIT FROM ONGOING MEDICATION FOR HER PSYCHIATRIC ILLNESS NOR FOR HER HYPERTENSION GIVEN PATIENT'S MARKED LIMITATION FUNCTIONING FLORID DELUSIONAL CONSISTENT AND CONSTANT PREOCCUPATION MARKED LIMITATIONS IN FUNCTIONING THE SHE SHE WOULD BENEFIT FROM A COMMITMENT AND TREATMENT PLAN TO ADDRESS WHAT HAS BEEN AN ONGOING MARKED IMPAIRMENT IN HER ABILITY TO CARE FOR HERSELF OUTSIDE OF A HOSPITAL SETTING WOULD ULTIMATELY BENEFIT FROM A LONG- ACTING INJECTABLE 08/16- continues to present with complex paranoid and somatic delusions and auditory hallucinations having conversation with someone who is not there. Pt continues to decline medications including lisinopril when SBP in 180's. No capacity to make medical decisions. Impaired judment due to severity of psychiatric symptoms affecting her ability to care for herself. 08/17: Continue current regimen and plans. Continue to encourage in taking her medications 08/19: Conditional voluntary revoked and filed section 7. Continue to encourage taking medications. 08/20: Pt presents delusional, paranoid, thought blocking. Observed staring around room. Responding to internal stimuli. T/W would call patients name, pt would stop, stare at T/W not respond. Pt stated, I'm too poisoned to take anything. I heard some scary staff about the doctor here. I'm scared. I'm worried about the world . Pt did confirm that she is having visual hallucinations today; but would not elaborate. hearing scheduled will try to start long acting inj such as invega 08/21: Patient seen in psychiatric follow-up. Patient anxious somatically preoccupied appears to be intentionally self induce vomiting when asked questions often feeling food is not somehow right medications not somehow right needs much encouragement to take care of herself food fluids intermittent medication acceptance does not seem capable of taking care of herself outside of a hospital setting at this time hearing for commitment and treatment plan schedule for tomorrow patient does not show any insight regarding need for antipsychotic treatment it is potentially stabilizing impact on her life. She did state that she had been stable on Risperdal in the past 08/22:Will try to have conversation regarding starting Invega monitor hemoglobin A1c who patient now here on commitment treatment plan ordered. Will try to engage in treatment 08/23: pt agreeable to risperadol can eventually convert to sustena. on sec 8 tx plan started 08/24: no changes, just started risperdal 08/25:increase risperdal to 2 mg bid 08/26: Patient continues to present delusional and paranoid. Pt stated, someone recently released a book about me. I haven't read it yet . Observed responding to internal stimuil; however denies AH/VH. Continue current tx plan. 08/27: Patient medication compliant last evening and this morning. She continues with paranoid delusions, expressing concern of other peoples safety and people writing about me . Social at times with select peers. 08/28: Patient medication compliant with risperidal today; refused other medications. Continues paranoid, delusional, anxious; she is concerned she will contaminate the water supply if she showers or uses the toliet. Patient stated, I've been peeing and pooping in the pullups that I used for my period. I'm worried about contaminating the water supply . Patient reports she is upset because she believes the court hearing wasn't legal and the [place] order is against the law . Staff will continue to encourage patient to shower. 08/29: Patient continues paranoid, delusional, anxious; she is concerned she will contaminate the water supply if she showers. Pt reports she is now using the toilet and no longer using pull ups, even though I'm still worried about the water system . Patient refused to shower yesterday. Risperidal changed to liquid to avoid cheeking. 08/30: Patient continues paranoid, delusional, anxious; she continues to refused to shower d/t her concern of her radiation contaminating the water supply. Observed talking to self at times. Thought blocking. Pt stated, can you change the medication back to the pill form because I know there is acid being put into the liquid kind . Pt requesting test d/t not feeling right ; test ordered. 08/31: paranoid delusions, labile. taking meds. informed she is not prescribed benzoic acid. somatic complaints of several days ago. continue current mgmt. 09/01: no change in presentation from yesterday. declined to consider mood stabilizer trial. continue current Tx. 09/02: Pt psychotic agaited intermittently refusing medical medications starts choking when she is being offered medication has been taking Risperdal. Liquid no response to mg b.i.d. will check level patient did state at 1 point that earlier in her life she had responded to Risperdal may need higher doses. Staff is checking for cheeking 09/03: consider inc risp 3 bid ck level 09/04: Pt refused labs yesterday; allowed today; waiting results. Continues delusional, paranoid, perseverative regarding cameras in the showers . Patient educated on: diagnosis, medication risk/benefits and therapeutic strategies Informed Consent: understands Reason for continued inpatient stay Substantial Risk for: med/psych decompensation Time Spent With Patient Time: Total time managing care of this patient today _30___ minutes.
[2023-09-04 21:05] VITALS: BP 134/73; PULSE 93; RESP 18; TEMP 36.4; O2SAT 98
[2023-09-04] MEDS: risperiDONE Oral Sol 1 MG/ML SOLUTION 3 MG PO (21:14)
[2023-09-05 07:15] VITALS: BP 118/56; PULSE 86; RESP 18; TEMP 36.9; O2SAT 97
[2023-09-05] MEDS: risperiDONE Oral Sol 1 MG/ML SOLUTION 3 MG PO ×2 (08:41→20:34)
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
[2023-09-05 20:10] VITALS: BP 137/78; PULSE 93; RESP 18; TEMP 36.6; O2SAT 97
[2023-09-06 06:00] VITALS: BP 113/67; PULSE 92; RESP 18; TEMP 36.3; O2SAT 96
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
[2023-09-06] MEDS: risperiDONE Oral Sol 1 MG/ML SOLUTION 2 MG PO (09:38)
[2023-09-06 19:40] VITALS: BP 133/65; PULSE 90; RESP 16; TEMP 36.3; O2SAT 97
[2023-09-06] MEDS: risperiDONE Oral Sol 1 MG/ML SOLUTION 4 MG PO (20:48)
[2023-09-06] MEDS: metFORMIN HCl 1,000 MG TABLET 1000 MG PO (20:50)
[2023-09-06] MEDS: traZODone HCL 50 MG TABLET PO (23:17)
[2023-09-07 08:30] VITALS: BP 114/60; PULSE 90; RESP 16; TEMP 36.6; O2SAT 97
[2023-09-07] MEDS: risperiDONE Oral Sol 1 MG/ML SOLUTION 2 MG PO (09:42)
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
[2023-09-07 19:50] VITALS: BP 115/70; PULSE 92; RESP 16; TEMP 36.5; O2SAT 97
[2023-09-07] MEDS: risperiDONE Oral Sol 1 MG/ML SOLUTION 4 MG PO (20:14)
[2023-09-07] MEDS: metFORMIN HCl 1,000 MG TABLET 1000 MG PO (20:15)
[2023-09-08 07:34] LABS: Creatinine Clr Calc Pharmacy 127.4; Estimated Glomerular Filt Rate > 60
[2023-09-08 08:10] VITALS: BP 121/68; PULSE 99; RESP 16; TEMP 35.7; O2SAT 96
[2023-09-08] MEDS: risperiDONE Oral Sol 1 MG/ML SOLUTION 2 MG PO (09:22)
[2023-09-08] MEDS: metFORMIN HCl 1,000 MG TABLET 1000 MG PO ×2 (09:22→21:40)
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
[2023-09-08 21:25] VITALS: BP 146/81; PULSE 110; RESP 18; TEMP 36.7; O2SAT 96
[2023-09-08] MEDS: Propranolol HCL 10 MG TABLET PO (21:40)
[2023-09-08] MEDS: risperiDONE Oral Sol 1 MG/ML SOLUTION 4 MG PO (21:41)
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
[2023-09-09 09:30] VITALS: BP 124/66; PULSE 97; RESP 16; TEMP 36.3; O2SAT 97
[2023-09-09] MEDS: risperiDONE Oral Sol 1 MG/ML SOLUTION 2 MG PO (09:52)
[2023-09-09] MEDS: metFORMIN HCl 1,000 MG TABLET 1000 MG PO ×2 (09:53→21:02)
[2023-09-09 21:00] VITALS: BP 122/64; PULSE 94; TEMP 36.5; O2SAT 97
[2023-09-09] MEDS: Propranolol HCL 10 MG TABLET PO (21:02)
[2023-09-09] MEDS: risperiDONE Oral Sol 1 MG/ML SOLUTION 4 MG PO (21:03)
[2023-09-09] MEDS: traZODone HCL 50 MG TABLET PO (23:32)
[2023-09-10 07:00] VITALS: BP 120/59; PULSE 72; RESP 16; TEMP 36.6; O2SAT 96
[2023-09-10] MEDS: risperiDONE Oral Sol 1 MG/ML SOLUTION 2 MG PO (09:32)
[2023-09-10] MEDS: metFORMIN HCl 1,000 MG TABLET 1000 MG PO (09:35)
[2023-09-10] MEDS: Propranolol HCL 10 MG TABLET PO (09:36)
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
[2023-09-10 14:59] LABS: 9-Hydroxyrisperidone 46.3 ng/mL; Risperidone 2.5 ng/mL; Risperidone + OH Risperidone 48.8 ng/mL
[2023-09-10 19:55] VITALS: BP 128/72; PULSE 91; TEMP 36.5; O2SAT 96
[2023-09-10] MEDS: risperiDONE Oral Sol 1 MG/ML SOLUTION 4 MG PO (20:18)
[2023-09-10] MEDS: Acetaminophen 325 MG TABLET 650 MG PO (23:45)
[2023-09-11 06:00] VITALS: BP 131/79; PULSE 96; RESP 18; TEMP 36.3; O2SAT 96
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
[2023-09-11] MEDS: risperiDONE Oral Sol 1 MG/ML SOLUTION PO (10:30)
[2023-09-11 19:50] VITALS: BP 130/77; PULSE 97; RESP 16; TEMP 36.6; O2SAT 98
[2023-09-11] MEDS: risperiDONE Oral Sol 1 MG/ML SOLUTION 5 MG PO (20:54)
[2023-09-12 08:00] VITALS: BP 109/66; PULSE 85; RESP 16; TEMP 36.2; O2SAT 95
[2023-09-12] MEDS: risperiDONE Oral Sol 1 MG/ML SOLUTION PO (09:47)
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
[2023-09-12] MEDS: risperiDONE Oral Sol 1 MG/ML SOLUTION 5 MG PO (20:45)
[2023-09-12 20:50] VITALS: BP 106/65; PULSE 90; RESP 16; TEMP 36.8; O2SAT 97
[2023-09-13 07:10] VITALS: PULSE 93; RESP 14; TEMP 36.3; O2SAT 97
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
[2023-09-13] MEDS: risperiDONE Oral Sol 1 MG/ML SOLUTION PO (10:05)
[2023-09-13 19:20] VITALS: BP 134/69; PULSE 95; TEMP 36.7; O2SAT 97
[2023-09-13] MEDS: risperiDONE Oral Sol 1 MG/ML SOLUTION 5 MG PO (21:34)
[2023-09-14 07:45] VITALS: BP 145/65; PULSE 63; RESP 20; TEMP 36.3; O2SAT 94
[2023-09-14] MEDS: risperiDONE Oral Sol 1 MG/ML SOLUTION PO (10:22)
[2023-09-14 12:46] LABS: Glucose, Whole Blood 259 mg/dL (60-115)
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
[2023-09-14 20:00] VITALS: BP 125/70; PULSE 97; RESP 15; TEMP 37.1; O2SAT 98
[2023-09-14] MEDS: risperiDONE Oral Sol 1 MG/ML SOLUTION 5 MG PO (20:54)
[2023-09-14] MEDS: metFORMIN HCl 1,000 MG TABLET 1000 MG PO (20:57)
[2023-09-15 07:15] VITALS: BP 113/59; PULSE 77; RESP 16; TEMP 36.5; O2SAT 96
[2023-09-15] MEDS: risperiDONE Oral Sol 1 MG/ML SOLUTION PO (09:12)
[2023-09-15] MEDS: metFORMIN HCl 1,000 MG TABLET 1000 MG PO ×2 (09:13→21:55)
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
[2023-09-15 20:25] VITALS: BP 147/84; PULSE 83; TEMP 36.5; O2SAT 98
[2023-09-15] MEDS: Propranolol HCL 10 MG TABLET PO (21:55)
[2023-09-15] MEDS: risperiDONE Oral Sol 1 MG/ML SOLUTION 5 MG PO (22:03)
[2023-09-16] MEDS: Acetaminophen 325 MG TABLET 650 MG PO (02:15)
[2023-09-16 07:45] VITALS: BP 113/54; PULSE 74; RESP 18; TEMP 36; O2SAT 95
[2023-09-16] MEDS: metFORMIN HCl 1,000 MG TABLET 1000 MG PO ×2 (08:58→21:00)
[2023-09-16] MEDS: risperiDONE Oral Sol 1 MG/ML SOLUTION PO (08:58)
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
[2023-09-16 20:50] VITALS: BP 138/72; PULSE 91; RESP 18; TEMP 36.5; O2SAT 97
[2023-09-16] MEDS: risperiDONE Oral Sol 1 MG/ML SOLUTION 5 MG PO (20:57)
[2023-09-16] MEDS: Propranolol HCL 10 MG TABLET PO (21:00)
[2023-09-17 09:03] VITALS: BP 116/62; PULSE 88; TEMP 36.2; O2SAT 96
[2023-09-17] MEDS: metFORMIN HCl 1,000 MG TABLET 1000 MG PO ×2 (09:42→22:05)
[2023-09-17] MEDS: risperiDONE Oral Sol 1 MG/ML SOLUTION PO (09:42)
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
[2023-09-17 21:18] LABS: Creatinine Clr Calc Pharmacy 109.7; Estimated Glomerular Filt Rate > 60
[2023-09-17 21:55] VITALS: BP 151/76; PULSE 86; RESP 18; TEMP 36.7; O2SAT 97
[2023-09-17] MEDS: Propranolol HCL 10 MG TABLET PO (22:00)
[2023-09-17] MEDS: risperiDONE Oral Sol 1 MG/ML SOLUTION 5 MG PO (22:02)
[2023-09-17] MEDS: traZODone HCL 50 MG TABLET PO (23:55)
--- NOTE | 2023-09-18 06:35 | PC.NURSE ---
Sally remains paranoid and suspicious of medications and care.She did accept her HS medications and allow vital signs without issue. However, when she was told that the auto radio mechanic was here to draw some labs she became very upset stating why would you send a lobotomist in to me is she going to preform brain surgery on me is she going to lobotomize me patient reassured that the employee was simply here to draw blood to check her creatinine she was then more relaxed however she then began questioning the validity of the DrMaritza's order as she had a level drawn for the same thing on the patient again reassured that the wanted to ensure that her creatinine levels were still within normal limits. monitor for safety, continue Plan of Care.
[2023-09-18 07:40] VITALS: BP 109/56; PULSE 99; RESP 18; TEMP 36.3; O2SAT 96
[2023-09-18] MEDS: metFORMIN HCl 1,000 MG TABLET 1000 MG PO ×2 (09:14→22:05)
[2023-09-18] MEDS: risperiDONE Oral Sol 1 MG/ML SOLUTION PO (09:15)
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
[2023-09-18 21:15] VITALS: BP 142/74; PULSE 98; RESP 18; TEMP 36.6; O2SAT 98
[2023-09-18] MEDS: risperiDONE Oral Sol 1 MG/ML SOLUTION 5 MG PO (22:04)
[2023-09-18] MEDS: Propranolol HCL 10 MG TABLET PO (22:04)
[2023-09-19 07:35] VITALS: BP 108/69; PULSE 83; RESP 16; TEMP 36.8; O2SAT 96
[2023-09-19] MEDS: metFORMIN HCl 1,000 MG TABLET 1000 MG PO ×2 (10:13→21:43)
[2023-09-19] MEDS: risperiDONE Oral Sol 1 MG/ML SOLUTION PO (10:13)
[2023-09-19 21:38] VITALS: BP 136/84; PULSE 97; TEMP 36.2; O2SAT 100
[2023-09-19] MEDS: Propranolol HCL 10 MG TABLET PO (21:43)
[2023-09-19] MEDS: risperiDONE Oral Sol 1 MG/ML SOLUTION 5 MG PO (21:43)
[2023-09-19 21:54] LABS: Glucose, Whole Blood 239 mg/dL (60-115)
--- NOTE | 2023-09-19 22:18 | HO.PSYCHPN ---
Subjective Subjective Date of Service: 09/19/23 Reason For Visit: Bizarre delusions agitation Subjective Notes: Section 8 Interim History: Patient calmer but preoccupied at times with bizarre delusions. Before blood draw she was concerned that they were coming to do lobotomy. Continues to states she had done well previously on Risperdal number of years ago. She continues to state that if things were done prior hospital regarding her dysthymia movie other preoccupations that people had been reading her mind that she was hearing other people's thoughts this seem to be somewhat decreased she does appear quite sedated on current dose of Risperdal we did talk about the use of Haldol or olanzapine recent blood sugar was elevated has not been regularly doing point of care we did discuss [id number] diabetes mellitus Medication Compliance: Intermittent Attending Groups: Intermittent Review of [employer] bs has not been following regularly Diagnostics Vital Signs (24Hr): Vital Signs - 24 hr 09/19/23 07:35 09/19/23 21:38 Temperature 98.2 F 97.2 F Pulse Rate 83 97 Respiratory Rate 16 Blood Pressure 108/69 136/84 Pulse Oximetry 96 100 Oxygen Delivery Method Room Air Room Air BMI result Body Mass Index 39.0 Labs 08/16/23 08:46 09/17/23 20:59 Labs: Laboratory Results - last 48 hr 09/19/23 21:41 POC Glucose 239 H Medications Medications Current Medications Acetaminophen (Acetaminophen 325 Mg Tablet) 650 mg PO Q6H PRN PRN Reason: Headache/Pain Mild Scale (1-3) Last Admin: 09/16/23 02:15 Dose: 650 mg Al Hydroxide/Mg Hydroxide (Magnesium Hydrox/Alum Hydrox 30 Ml Oral.Susp) 30 ml PO Q6H PRN PRN Reason: Heartburn/Nausea Last Admin: 08/28/23 09:28 Dose: 30 ml Albuterol Sulfate (Albuterol Sulfate 90 Mcg 8 Gm Inhaler) 2 puff INHALE RQ4H PRN PRN Reason: short of breath Magnesium Hydroxide (Milk Of Magnesia 30 Ml Oral.Susp) 30 ml PO DAILY PRN PRN Reason: Constipation Metformin HCl (Metformin Hcl 1,000 Mg Tablet) 1,000 mg PO BID [facility] Last Admin: 09/19/23 21:43 Dose: 1,000 mg Olanzapine (Olanzapine 10 Mg Vial) 5 mg IM BID PRN PRN Reason: IF REFUSES PO RISPERADOL Ondansetron HCl (Ondansetron Odt 4 Mg Tab.Rapdis) 4 mg TRANSLINGU Q6H PRN PRN Reason: Nausea and Vomiting Propranolol HCl (Propranolol Hcl 10 Mg Tablet) 10 mg PO BID [facility]; Protocol Last Admin: 09/19/23 21:43 Dose: 10 mg Risperidone (Risperidone Oral Lorena 1 Mg/Ml Solution) 5 mg PO BEDTIME [facility] Last Admin: 09/19/23 21:43 Dose: 5 mg Senna/Docusate Sodium (Sennosides/Docusate Sodium Tablet) 1 tab PO DAILY PRN PRN Reason: Constipation Trazodone HCl (Trazodone Hcl 50 Mg Tablet) 50 mg PO BEDTIME MRX1 PRN PRN Reason: Insomnia Last Admin: 09/17/23 23:55 Dose: 50 mg Allergies Allergies Allergy/AdvReac Type Severity Reaction Status Date / Time clotrimazole Allergy Severe Rash Verified 09/23/22 02:18 Assessment & Plan Assessment & Plan (1) Schizoaffective disorder: Status: Acute Code(s): F25.9 - Schizoaffective disorder, unspecified Plan Patient calmer somewhat less bizarre in interaction although the other day had been fearful she was being taken for a lobotomy still quite paranoid calmer multiple delusions quite fixed on not having a psychotic disorder sedated during the day will stop a.m. Risperdal changed to evening will give long-acting injectable as soon as is clear patient tolerates Patient educated on: medication risk/benefits and medical condition Informed Consent: does not understand Reason for continued inpatient stay Substantial Risk for: inability to function and rapid decompensation Time Spent With Patient Time: Total time managing care of this patient today ____ minutes.
[2023-09-20] MEDS: traZODone HCL 50 MG TABLET PO (00:32)
[2023-09-20 06:00] VITALS: BP 109/55; PULSE 86; RESP 16; TEMP 36.7; O2SAT 95
[2023-09-20 08:06] LABS: Glucose, Whole Blood 158 mg/dL (60-115)
[2023-09-20 09:30] VITALS: BP 112/60
[2023-09-20] MEDS: metFORMIN HCl 1,000 MG TABLET 1000 MG PO ×2 (09:35→21:57)
[2023-09-20] MEDS: Propranolol HCL 10 MG TABLET PO ×2 (09:44→21:57)
[2023-09-20] MEDS: risperiDONE Oral Sol 1 MG/ML SOLUTION 5 MG PO (19:05)
[2023-09-20 21:55] VITALS: BP 130/67; PULSE 95
[2023-09-20 21:56] LABS: Glucose, Whole Blood 201 mg/dL (60-115)
--- NOTE | 2023-09-20 23:06 | HO.PSYCHPN ---
Subjective Subjective Date of Service: 09/20/23 Reason For Visit: Bizarre delusions agitation Subjective Notes: Section 8 Interim History: The patient is withdrawn somewhat more organized in thought less distracted Risperdal lowered to 5 mg secondary to sedation encourage point of care better compliance with diabetes care no dyskinesia noted on exam remains Medication Compliance: Intermittent Mental Status Exam Mental Status Exam Narrative: Appearance: Casually dressed, disheveled Behavior: Cooperative psychomotor: Not overly agitated Speech: Clear Thought process: goal-directed Thought content: Remains preoccupied multiple paranoid delusional material of somatic nature being attacked exposed to radiation but more guarded less agitation Mood: depressed Affect: Some constriction SI:denies HI:denies Delusions: Preoccupied with paranoid delusional material somatic delusional material Insight/judgment: Impaired Diagnostics Vital Signs (24Hr): Vital Signs - 24 hr 09/20/23 06:00 09/20/23 09:30 09/20/23 21:55 Temperature 98.0 F Pulse Rate 86 95 Respiratory Rate 16 Blood Pressure 109/55 L 112/60 130/67 Pulse Oximetry 95 Oxygen Delivery Method Room Air BMI result Body Mass Index 39.0 Labs 08/16/23 08:46 09/17/23 20:59 Labs: Laboratory Results - last 48 hr 09/19/23 09/20/23 09/20/23 21:41 08:01 21:51 POC Glucose 239 H 158 H 201 H Medications Medications Current Medications Acetaminophen (Acetaminophen 325 Mg Tablet) 650 mg PO Q6H PRN PRN Reason: Headache/Pain Mild Scale (1-3) Last Admin: 09/16/23 02:15 Dose: 650 mg Al Hydroxide/Mg Hydroxide (Magnesium Hydrox/Alum Hydrox 30 Ml Oral.Susp) 30 ml PO Q6H PRN PRN Reason: Heartburn/Nausea Last Admin: 08/28/23 09:28 Dose: 30 ml Albuterol Sulfate (Albuterol Sulfate 90 Mcg 8 Gm Inhaler) 2 puff INHALE RQ4H PRN PRN Reason: short of breath Magnesium Hydroxide (Milk Of Magnesia 30 Ml Oral.Susp) 30 ml PO DAILY PRN PRN Reason: Constipation Metformin HCl (Metformin Hcl 1,000 Mg Tablet) 1,000 mg PO BID NAMITA Last Admin: 09/20/23 21:57 Dose: 1,000 mg Olanzapine (Olanzapine 10 Mg Vial) 5 mg IM BID PRN PRN Reason: IF REFUSES PO RISPERADOL Ondansetron HCl (Ondansetron Odt 4 Mg Tab.Rapdis) 4 mg TRANSLINGU Q6H PRN PRN Reason: Nausea and Vomiting Propranolol HCl (Propranolol Hcl 10 Mg Tablet) 10 mg PO BID NAMITA; Protocol Last Admin: 09/20/23 21:57 Dose: 10 mg Risperidone (Risperidone Oral Lorena 1 Mg/Ml Solution) 5 mg PO DAILY@1900 NAMITA Last Admin: 09/20/23 19:05 Dose: 5 mg Senna/Docusate Sodium (Sennosides/Docusate Sodium Tablet) 1 tab PO DAILY PRN PRN Reason: Constipation Trazodone HCl (Trazodone Hcl 50 Mg Tablet) 50 mg PO BEDTIME MRX1 PRN PRN Reason: Insomnia Last Admin: 09/20/23 00:32 Dose: 50 mg Allergies Allergies Allergy/AdvReac Type Severity Reaction Status Date / Time clotrimazole Allergy Severe Rash Verified 09/23/22 02:18 Assessment & Plan Assessment & Plan (1) Schizoaffective disorder: Status: Acute Code(s): F25.9 - Schizoaffective disorder, unspecified Plan Patient calmer somewhat less bizarre in interaction although the other day had been fearful she was being taken for a lobotomy still quite paranoid calmer multiple delusions quite fixed on not having a psychotic disorder sedated during the day will stop a.m. Risperdal changed to evening will give long-acting injectable as soon as is clear patient tolerates change Risperdal to 18:00 Patient educated on: diagnosis and medication risk/benefits Informed Consent: does not understand Reason for continued inpatient stay Substantial Risk for: inability to function, rapid decompensation and med/psych decompensation Time Spent With Patient Time: Total time managing care of this patient today ____ minutes.
[2023-09-21 06:00] VITALS: BP 105/58; PULSE 92; TEMP 35.7; O2SAT 97
[2023-09-21 07:57] LABS: Glucose, Whole Blood 130 mg/dL (60-115)
[2023-09-21] MEDS: metFORMIN HCl 1,000 MG TABLET 1000 MG PO ×2 (09:22→21:53)
--- NOTE | 2023-09-21 13:11 | HO.PSYCHPN ---
Subjective Subjective Date of Service: 09/21/23 Reason For Visit: Bizarre delusions agitation Subjective Notes: Section 8 Healthcare Proxy: No Guardianship: No Medical Problems Affecting Mental Status: No Interim History: Met with patient. Discussed with Nursing. Has been some improvement. Less hallucinations. More organized in the last few days. Patient today reports feeling like she is doing okay and there is improvement. Did have some difficulty commuting the improvement they have noticed, but reported feeling more themselves and feeling like her speech is more organized. Is feeling tired and would like medications reduced. Was redirected to primary team. Denied SI. Reported overall feeling safe. Denies hallucinations today Side effects from medications: No Attending Groups: No Review of Systems Acute medical concerns: No Review of Systems Review of Systems unremarkable Mental Status Exam Mental Status Exam Narrative: Appearance: Casually dressed, disheveled Behavior: Cooperative psychomotor: Not overly agitated Speech: Clear Thought process: goal-directed Thought content: no overt delusional material express to promotion writer. Mood: depressed Affect: Some constriction SI:denies HI:denies Hallucinations: Denies Insight/judgment: Impaired Diagnostics Vital Signs (24Hr): Vital Signs - 24 hr 09/20/23 21:55 09/21/23 06:00 Temperature 96.2 F L Pulse Rate 95 92 Blood Pressure 130/67 105/58 L Pulse Oximetry 97 Oxygen Delivery Method Room Air BMI result Body Mass Index 39.0 Labs 08/16/23 08:46 09/17/23 20:59 Labs: Laboratory Results - last 48 hr 09/19/23 09/20/23 09/20/23 21:41 08:01 21:51 POC Glucose 239 H 158 H 201 H 09/21/23 07:51 POC Glucose 130 H Medications Medications Current Medications Acetaminophen (Acetaminophen 325 Mg Tablet) 650 mg PO Q6H PRN PRN Reason: Headache/Pain Mild Scale (1-3) Last Admin: 09/16/23 02:15 Dose: 650 mg Al Hydroxide/Mg Hydroxide (Magnesium Hydrox/Alum Hydrox 30 Ml Oral.Susp) 30 ml PO Q6H PRN PRN Reason: Heartburn/Nausea Last Admin: 08/28/23 09:28 Dose: 30 ml Albuterol Sulfate (Albuterol Sulfate 90 Mcg 8 Gm Inhaler) 2 puff INHALE RQ4H PRN PRN Reason: short of breath Magnesium Hydroxide (Milk Of Magnesia 30 Ml Oral.Susp) 30 ml PO DAILY PRN PRN Reason: Constipation Metformin HCl (Metformin Hcl 1,000 Mg Tablet) 1,000 mg PO BID [facility] Last Admin: 09/21/23 09:22 Dose: 1,000 mg Olanzapine (Olanzapine 10 Mg Vial) 5 mg IM BID PRN PRN Reason: IF REFUSES PO RISPERADOL Ondansetron HCl (Ondansetron Odt 4 Mg Tab.Rapdis) 4 mg TRANSLINGU Q6H PRN PRN Reason: Nausea and Vomiting Propranolol HCl (Propranolol Hcl 10 Mg Tablet) 10 mg PO BID [facility]; Protocol Last Admin: 09/21/23 09:26 Dose: Not Given Risperidone (Risperidone Oral Lorena 1 Mg/Ml Solution) 5 mg PO DAILY@1900 [facility] Last Admin: 09/20/23 19:05 Dose: 5 mg Senna/Docusate Sodium (Sennosides/Docusate Sodium Tablet) 1 tab PO DAILY PRN PRN Reason: Constipation Trazodone HCl (Trazodone Hcl 50 Mg Tablet) 50 mg PO BEDTIME MRX1 PRN PRN Reason: Insomnia Last Admin: 09/20/23 00:32 Dose: 50 mg Allergies Allergies Allergy/AdvReac Type Severity Reaction Status Date / Time clotrimazole Allergy Severe Rash Verified 09/23/22 02:18 Assessment & Plan Assessment & Plan (1) Schizoaffective disorder: Status: Acute Code(s): F25.9 - Schizoaffective disorder, unspecified Plan Patient calmer somewhat less bizarre in interaction although the other day had been fearful she was being taken for a lobotomy still quite paranoid calmer multiple delusions quite fixed on not having a psychotic disorder sedated during the day will stop a.m. Risperdal changed to evening will give long-acting injectable as soon as is clear patient tolerates change Risperdal to 18:00 09/21/23: No changes to current plan Reason for continued inpatient stay Substantial Risk for: rapid decompensation Time Spent With Patient Time: Total time managing care of this patient today ____ minutes.
[2023-09-21] MEDS: risperiDONE Oral Sol 1 MG/ML SOLUTION 5 MG PO (19:04)
[2023-09-21 21:40] LABS: Glucose, Whole Blood 183 mg/dL (60-115)
[2023-09-21 21:45] VITALS: BP 118/79; PULSE 92; RESP 18; TEMP 36.4; O2SAT 97
[2023-09-21] MEDS: Propranolol HCL 10 MG TABLET PO (21:53)
[2023-09-22 09:00] VITALS: BP 115/65; PULSE 88; RESP 16; TEMP 36.6; O2SAT 96
[2023-09-22 09:10] LABS: Glucose, Whole Blood 133 mg/dL (60-115)
[2023-09-22] MEDS: metFORMIN HCl 1,000 MG TABLET 1000 MG PO (09:34)
--- NOTE | 2023-09-22 10:15 | P.PNPSI_ITS ---
Subjective Subjective Date of Service: 09/22/23 Reason For Visit: Bizarre delusions agitation Interim History: Patient today reports feeling like she is doing okay. Feeling more themselves and feeling like her speech is more organized. Has been isolative and withdrawn- relates this to medication dosing- redirected to primary team. Denied SI. Reported overall feeling safe. Medication Compliance: Yes Attending Groups: No Review of Systems Acute medical concerns: No Review of Systems Review of Systems unremarkable Mental Status Exam Mental Status Exam Narrative: Appearance: Casually dressed, disheveled Behavior: Cooperative psychomotor: Not overly agitated Speech: Clear Thought process: goal-directed Thought content: no overt delusional material express to telegraphic typewriter repairer. Mood: depressed Affect: Some constriction SI:denies HI:denies Hallucinations: Denies Insight/judgment: Impaired Diagnostics Vital Signs (24Hr): Vital Signs - 24 hr 09/21/23 21:45 09/22/23 09:00 Temperature 97.6 F 97.8 F Pulse Rate 92 88 Respiratory Rate 18 16 Blood Pressure 118/79 115/65 Pulse Oximetry 97 96 Oxygen Delivery Method Room Air Room Air BMI result Body Mass Index 39.0 Labs 08/16/23 08:46 09/17/23 20:59 Labs: Laboratory Results - last 48 hr 09/20/23 09/21/23 09/21/23 21:51 07:51 21:25 POC Glucose 201 H 130 H 183 H 09/22/23 09:04 POC Glucose 133 H Medications Medications Current Medications Acetaminophen (Acetaminophen 325 Mg Tablet) 650 mg PO Q6H PRN PRN Reason: Headache/Pain Mild Scale (1-3) Last Admin: 09/16/23 02:15 Dose: 650 mg Al Hydroxide/Mg Hydroxide (Magnesium Hydrox/Alum Hydrox 30 Ml Oral.Susp) 30 ml PO Q6H PRN PRN Reason: Heartburn/Nausea Last Admin: 08/28/23 09:28 Dose: 30 ml Albuterol Sulfate (Albuterol Sulfate 90 Mcg 8 Gm Inhaler) 2 puff INHALE RQ4H PRN PRN Reason: short of breath Magnesium Hydroxide (Milk Of Magnesia 30 Ml Oral.Susp) 30 ml PO DAILY PRN PRN Reason: Constipation Metformin HCl (Metformin Hcl 1,000 Mg Tablet) 1,000 mg PO BID NAMITA Last Admin: 09/22/23 09:34 Dose: 1,000 mg Olanzapine (Olanzapine 10 Mg Vial) 5 mg IM BID PRN PRN Reason: IF REFUSES PO RISPERADOL Ondansetron HCl (Ondansetron Odt 4 Mg Tab.Rapdis) 4 mg TRANSLINGU Q6H PRN PRN Reason: Nausea and Vomiting Propranolol HCl (Propranolol Hcl 10 Mg Tablet) 10 mg PO BID NAMITA; Protocol Last Admin: 09/22/23 09:35 Dose: Not Given Risperidone (Risperidone Oral Lorena 1 Mg/Ml Solution) 5 mg PO DAILY@1900 NAMITA Last Admin: 09/21/23 19:04 Dose: 5 mg Senna/Docusate Sodium (Sennosides/Docusate Sodium Tablet) 1 tab PO DAILY PRN PRN Reason: Constipation Trazodone HCl (Trazodone Hcl 50 Mg Tablet) 50 mg PO BEDTIME MRX1 PRN PRN Reason: Insomnia Last Admin: 09/20/23 00:32 Dose: 50 mg Allergies Allergies Allergy/AdvReac Type Severity Reaction Status Date / Time clotrimazole Allergy Severe Rash Verified 09/23/22 02:18 Assessment & Plan Assessment & Plan (1) Schizoaffective disorder: Status: Acute Code(s): F25.9 - Schizoaffective disorder, unspecified Plan Patient calmer somewhat less bizarre in interaction although the other day had been fearful she was being taken for a lobotomy still quite paranoid calmer multiple delusions quite fixed on not having a psychotic disorder sedated during the day will stop a.m. Risperdal changed to evening will give long-acting injectable as soon as is clear patient tolerates change Risperdal to 18:00 09/21/23: No changes to current plan 09/22/2023: No changes to current plan. Patient will discuss Risperdal dosing with primary team Reason for continued inpatient stay Substantial Risk for: rapid decompensation Time Spent With Patient Time: Total time managing care of this patient today ____ minutes.
[2023-09-22] MEDS: risperiDONE Oral Sol 1 MG/ML SOLUTION 5 MG PO (18:23)
[2023-09-22 20:45] VITALS: BP 132/80; PULSE 108; RESP 18; TEMP 36.3; O2SAT 96
[2023-09-22 21:58] LABS: Glucose, Whole Blood 188 mg/dL (60-115)
[2023-09-23] MEDS: traZODone HCL 50 MG TABLET PO (02:15)
[2023-09-23 07:30] VITALS: BP 127/76; PULSE 78; RESP 20; TEMP 36.4; O2SAT 95
[2023-09-23 08:04] LABS: Glucose, Whole Blood 123 mg/dL (60-115)
--- NOTE | 2023-09-23 15:47 | PC.NURSE ---
Pt refused AM Metformin and Propanolol, MD Gavin made aware
[2023-09-23] MEDS: risperiDONE Oral Sol 1 MG/ML SOLUTION 5 MG PO (19:36)
[2023-09-23 19:50] VITALS: BP 124/72; PULSE 102; RESP 18; TEMP 36.7; O2SAT 97
[2023-09-23] MEDS: Propranolol HCL 10 MG TABLET PO (20:58)
[2023-09-23] MEDS: metFORMIN HCl 1,000 MG TABLET 1000 MG PO (21:02)
[2023-09-23 21:08] LABS: Glucose, Whole Blood 298 mg/dL (60-115)
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
[2023-09-24] MEDS: traZODone HCL 50 MG TABLET PO (01:28)
[2023-09-24 07:27] LABS: Glucose, Whole Blood 155 mg/dL (60-115)
[2023-09-24 08:05] VITALS: BP 127/54; PULSE 76; RESP 18; TEMP 36.2; O2SAT 96
[2023-09-24 08:40] LABS: Creatinine Clr Calc Pharmacy 133.3; Estimated Glomerular Filt Rate > 60
[2023-09-24] MEDS: Propranolol HCL 10 MG TABLET PO ×2 (09:03→21:34)
[2023-09-24] MEDS: metFORMIN HCl 1,000 MG TABLET 1000 MG PO ×2 (09:05→21:34)
[2023-09-24 17:43] LABS: Glucose, Whole Blood 167 mg/dL (60-115)
[2023-09-24] MEDS: Acetaminophen 325 MG TABLET 650 MG PO (18:13)
[2023-09-24] MEDS: risperiDONE Oral Sol 1 MG/ML SOLUTION 5 MG PO (19:13)
[2023-09-24 21:31] VITALS: BP 130/73; PULSE 88; TEMP 36.6; O2SAT 97
--- NOTE | 2023-09-24 22:16 | HO.PSYCHPN ---
Subjective Subjective Date of Service: 09/24/23 Reason For Visit: Bizarre delusions agitation Subjective Notes: Section 8 Interim History: Pt has been withdrawn isolating in room . Has not responded to risperadol to this point continues to be preoccupied with multiple delusions Lena you feels like the medicine is being poisoned that metformin is not really metformin that the Risperdal was not really Risperdal the staff members had conspired to do things with her in the other hospital the that there is technology that is causing her thoughts to be released to or her to hear other thoughts hears people talking that the medicine she is getting is not really her medicine Medication Compliance: Intermittent Side effects from medications: Yes (lethargy ?) Mental Status Exam Mental Status Exam Patient Appearance: Appropriate Level of Consciousness: Awake Patient Behavior: Appropriate Mood Description: Labile, Flat and Apprehensive Affect Description: Labile and Apprehensive Patient Cognition Impaired: No Ability to Follow Directions: Good Speech Pattern: Clear Hallucinations: Auditory (Hearing people talk about her medicine that it is not really her medicine) Delusions: Paranoid Ideation and Bizarre Thought Content: positive for Preoccupation, negative for Suicidal Ideation or negative for Homicidal Ideation Abnormal Motor Activity Signs and Symptoms: Psychomotor Retardation Judgement: Poor Judgement and Insight: Patient preoccupied with multiple delusional material does not feel any need to be antipsychotic medication continues to complain daytime fatigue more organized in thought less distracted when speaking and one-to-one continues with illogical thoughts regarding her medication and multiple paranoid delusions cannot taken any information regarding diagnosis Diagnostics Vital Signs (24Hr): Vital Signs - 24 hr 09/24/23 08:05 09/24/23 21:31 Temperature 97.2 F 97.8 F Pulse Rate 76 88 Respiratory Rate 18 Blood Pressure 127/54 L 130/73 Pulse Oximetry 96 97 Oxygen Delivery Method Room Air Room Air BMI result Body Mass Index 39.0 Labs 08/16/23 08:46 09/24/23 08:06 Labs: Laboratory Results - last 48 hr 09/23/23 09/23/23 09/24/23 07:53 21:01 07:18 Creatinine Estim Creat Clear Calc Estimated GFR POC Glucose 123 H 298 H 155 H 09/24/23 09/24/23 08:06 17:39 Creatinine 0.65 Estim Creat Clear Calc 133.3 Estimated GFR > 60 POC Glucose 167 H Medications Medications Current Medications Acetaminophen (Acetaminophen 325 Mg Tablet) 650 mg PO Q6H PRN PRN Reason: Headache/Pain Mild Scale (1-3) Last Admin: 09/24/23 18:13 Dose: 650 mg Al Hydroxide/Mg Hydroxide (Magnesium Hydrox/Alum Hydrox 30 Ml Oral.Susp) 30 ml PO Q6H PRN PRN Reason: Heartburn/Nausea Last Admin: 08/28/23 09:28 Dose: 30 ml Albuterol Sulfate (Albuterol Sulfate 90 Mcg 8 Gm Inhaler) 2 puff INHALE RQ4H PRN PRN Reason: short of breath Magnesium Hydroxide (Milk Of Magnesia 30 Ml Oral.Susp) 30 ml PO DAILY PRN PRN Reason: Constipation Metformin HCl (Metformin Hcl 1,000 Mg Tablet) 1,000 mg PO BID NAMITA Last Admin: 09/24/23 21:34 Dose: 1,000 mg Olanzapine (Olanzapine 10 Mg Vial) 5 mg IM BID PRN PRN Reason: IF REFUSES PO RISPERADOL Olanzapine (Olanzapine 5 Mg Tablet) 5 mg PO BEDTIME NAMITA Ondansetron HCl (Ondansetron Odt 4 Mg Tab.Rapdis) 4 mg TRANSLINGU Q6H PRN PRN Reason: Nausea and Vomiting Propranolol HCl (Propranolol Hcl 10 Mg Tablet) 10 mg PO BID NAMITA; Protocol Last Admin: 09/24/23 21:34 Dose: 10 mg Risperidone (Risperidone Oral Lorena 1 Mg/Ml Solution) 3 mg PO DAILY@1900 NAMITA Senna/Docusate Sodium (Sennosides/Docusate Sodium Tablet) 1 tab PO DAILY PRN PRN Reason: Constipation Trazodone HCl (Trazodone Hcl 50 Mg Tablet) 50 mg PO BEDTIME MRX1 PRN PRN Reason: Insomnia Last Admin: 09/24/23 01:28 Dose: 50 mg Allergies Allergies Allergy/AdvReac Type Severity Reaction Status Date / Time clotrimazole Allergy Severe Rash Verified 09/23/22 02:18 Assessment & Plan Assessment & Plan (1) Schizoaffective disorder: Status: Acute Code(s): F25.9 - Schizoaffective disorder, unspecified Plan Patient calmer somewhat less bizarre in interaction although the other day had been fearful she was being taken for a lobotomy still quite paranoid calmer multiple delusions quite fixed on not having a psychotic disorder sedated during the day will stop a.m. Risperdal changed to evening will give long-acting injectable as soon as is clear patient tolerates change Risperdal to 18:00 09/21/23: No changes to current plan 09/22/2023: No changes to current plan. Patient will discuss Risperdal dosing with primary team 09/23/2023 Discussed with patient use of long-acting injectable however given patient's sedation would be less likely to tolerate Invega sustain discussed with patient possibility of Haldol states she had not done well on Abilify in the past 09/24/2023 Patient not tolerating higher doses of Risperdal had plan to convert to Invega Systane up. Has been somewhat lethargic reportedly during the day unless intentionally isolating. Patient continues with severe psychosis no insight literature for treatment resistant psychosis suggest changed from Risperdal to olanzapine has increase likelihood of response. Will need to monitor blood sugar weight patient already has glucose intolerance in obesity however cannot functioning current psychotic state may develop greater insight if psychosis response case reviewed with other psychiatrist on the unit taper Risperdal start olanzapine Reason for continued inpatient stay Substantial Risk for: inability to function, rapid decompensation and med/psych decompensation Time Spent With Patient Time: Total time managing care of this patient today ____ minutes.
[2023-09-25 07:30] VITALS: BP 128/60; PULSE 82; RESP 16; TEMP 36.5; O2SAT 97
[2023-09-25 07:59] LABS: Glucose, Whole Blood 246 mg/dL (60-115)
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
[2023-09-25] MEDS: Propranolol HCL 10 MG TABLET PO ×2 (10:17→22:19)
[2023-09-25] MEDS: metFORMIN HCl 1,000 MG TABLET 1000 MG PO ×2 (10:28→22:20)
[2023-09-25] MEDS: risperiDONE Oral Sol 1 MG/ML SOLUTION 3 MG PO (19:11)
[2023-09-25 22:00] VITALS: BP 141/67; PULSE 80; RESP 16; TEMP 36.4; O2SAT 97
[2023-09-25] MEDS: OLANZapine 5 MG TABLET PO (22:20)
[2023-09-26 07:00] VITALS: BMI 42.3
[2023-09-26 07:50] LABS: Glucose, Whole Blood 129 mg/dL (60-115)
[2023-09-26 08:33] VITALS: BP 140/62; PULSE 86; RESP 16; TEMP 36.3; O2SAT 95
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
[2023-09-26] MEDS: metFORMIN HCl 1,000 MG TABLET 1000 MG PO (09:50)
[2023-09-26] MEDS: Propranolol HCL 10 MG TABLET PO (09:50)
--- NOTE | 2023-09-26 12:51 | PC.NURSE ---
Gayatri CAVAZOS notified of pt's 20 lb weight gain since 08/01/23
[2023-09-26] MEDS: risperiDONE Oral Sol 1 MG/ML SOLUTION 2 MG PO (18:53)
[2023-09-26 20:05] VITALS: BP 120/78; PULSE 95; RESP 18; TEMP 36.6; O2SAT 96
[2023-09-26] MEDS: OLANZapine 10 MG TABLET PO (22:55)
[2023-09-27 07:51] LABS: Glucose, Whole Blood 123 mg/dL (60-115)
[2023-09-27 08:39] VITALS: BP 124/65; PULSE 89; RESP 18; TEMP 36.1; O2SAT 96
[2023-09-27] MEDS: metFORMIN HCl 1,000 MG TABLET 1000 MG PO (09:50)
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
[2023-09-27 19:39] LABS: Glucose, Whole Blood 226 mg/dL (60-115)
[2023-09-27 21:00] VITALS: BP 136/60; PULSE 92; RESP 14; TEMP 36.6; O2SAT 97
[2023-09-27] MEDS: Benztropine Mesylate 0.5 MG TABLET PO (23:12)
[2023-09-27] MEDS: OLANZapine 7.5 MG TABLET 15 MG PO (23:12)
[2023-09-28 06:00] VITALS: BP 121/71; PULSE 86; RESP 16; TEMP 36.3; O2SAT 97
[2023-09-28] MEDS: Propranolol HCL 10 MG TABLET PO (10:18)
[2023-09-28] MEDS: metFORMIN HCl 1,000 MG TABLET 1000 MG PO (10:18)
[2023-09-28 12:36] LABS: Glucose, Whole Blood 215 mg/dL (60-115)
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
[2023-09-28 18:00] VITALS: BP 142/82; PULSE 84; RESP 18; TEMP 36.7; O2SAT 97
[2023-09-28] MEDS: OLANZapine 10 MG VIAL 5 MG IM (21:27)
[2023-09-28 21:29] LABS: Glucose, Whole Blood 155 mg/dL (60-115)
--- NOTE | 2023-09-28 23:19 | PC.NURSE ---
Slaly remains guarded, paranoid, and suspicious. she was visible in the group room with several peers however she was not sitting with them or interacting with them. She was however, she present with them. Initally she agreed to take all her medications however, when medications were presented she declined them. she stated that Macario's orders are not real and that it is against the law to make me take medications. I want to see where it's a written law that I have to take the medication this ghost writer showed the patient the order for her oral Zyprexa, highlighting the notation that if oral medication is refused that IM medication is to be administered. Patient was shown, at her request, the medication packages. she accepted her Zyprexa but refused all other PO medications. Patient did not accept her PO Zyprexa, sighting multiple concerns IE: questioning the manufactures markings, questioning the size of the pill. stating that she did not trust the packaging and that she didn't believe that it was Zyprexa. Ultimately the patient refused PO Zyprexa. The patient then barricaded herself in her bathroom but willingly exited the bathroom when this ghost writer stated to a fellow employee to call security to assist in getting the patient out of the bathroom. Patient accepted IM Zyprexa in her left deltoid per [facility] order. Apparently the patient told her roommate that this ghost writer had called the roommate the N. word when administering IM medication to Sally AEB: the patient T.C. approaching this ghost writer and accusing her of calling her the N. word Did you call me the N. word? She said you called me the N. word when you were trying to get her out of the bathroom Sally was redirected for giving false information. Sally is now resistant to any interaction with this RN. I'm not comfortable with you being my nurse now. Who is my assigned nurse now, no I'm not comfortable with you. I need to talk to a nurse about medical concerns, I'm not comfortable talking to you about it. continue to monitor for safety, continue Plan of Care
[2023-09-29 07:15] VITALS: BP 159/88; PULSE 88; RESP 16; TEMP 36.7; O2SAT 98
[2023-09-29 08:25] LABS: Glucose, Whole Blood 157 mg/dL (60-115)
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
[2023-09-29 18:04] LABS: Glucose, Whole Blood 158 mg/dL (60-115)
[2023-09-29] MEDS: Benztropine Mesylate 0.5 MG TABLET PO (21:26)
[2023-09-29] MEDS: OLANZapine 10 MG TABLET 20 MG PO (21:26)
[2023-09-29 21:42] LABS: Glucose, Whole Blood 198 mg/dL (60-115)
--- NOTE | 2023-09-29 23:25 | PC.NURSE ---
Staff reported that patient was found sitting in the corner of the room with blanket wrapped her neck. Colleague RN notified stonemason helper provider/ordered 5 minutes check for safety/5 minutes safety initiated immediately, will continue to monitor
[2023-09-30 07:20] VITALS: BP 153/72; PULSE 114; RESP 16; TEMP 37.4; O2SAT 98
[2023-09-30 07:41] LABS: Glucose, Whole Blood 143 mg/dL (60-115)
[2023-09-30] MEDS: Propranolol HCL 10 MG TABLET PO (08:50)
--- NOTE | 2023-09-30 09:17 | HO.PSYCHPN ---
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 this time; when asked to elaborate, pt stated, I'm seeing too many things to mention . When discussing her weekend patient would stop mid-sentence and state, I'm sharing too much information. I think people are talking and spreading rumors about me again . Patient did have good insight into her presentation and stated, I think I was better on the risperidal . Zyprexa was changed to Zydis; d/t possible cheeking. dose increased to Zyprexa 30mg PO bedtime. Patient educated on: diagnosis and medication risk/benefits Informed Consent: understands Reason for continued inpatient stay Substantial Risk for: inability to function, rapid decompensation and med/psych decompensation Time Spent With Patient Time: Total time managing care of this patient today _30___ minutes.
[2023-09-30 09:43] LABS: Creatinine Clr Calc Pharmacy 110.8; Estimated Glomerular Filt Rate > 60
[2023-09-30 14:51] VITALS: BP 131/90; PULSE 94; TEMP 36.6; O2SAT 96
--- NOTE | 2023-09-30 19:13 | PC.NURSE ---
Pt required redirection after having a verbal outburst in the kitchen area. Pt was upset because I feel like there's writing on my arm, don't you see it? Pt appears, delusional, paranoid, and is responding to internal stimuli and mumbling to herself. Pt then stated I heard staff talking to each other and they said a man on the toilet today, is there any way we can honor him? Pt became upset when RN told her that a patient did not on the unit. Pt did not want to take PRN medication because I'm allergic to it.
[2023-09-30 22:42] VITALS: RESP 16
--- NOTE | 2023-09-30 23:02 | PC.NURSE ---
refusing HS zyprexa. [employer] notified. awaiting orders as patient is on a Macario's order.
[2023-09-30] MEDS: OLANZapine 10 MG VIAL 20 MG IM (23:40)
--- NOTE | 2023-10-01 09:12 | HO.PSYCHPN ---
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 state, I'm sharing too much information. I think people are talking and spreading rumors about me again . Patient did have good insight into her presentation and stated, I think I was better on the risperidal . Zyprexa was changed to Zydis; d/t possible cheeking. dose increased to Zyprexa 30mg PO bedtime. 10/01: Patient continues to presents paranoid, delusional; thought blocking. Observed responding to internal stimuli. Patient denies auditory hallucinations. Per nursing, patient had a verbal outburst last evening d/t believing another patient had on the unit. Patient stated, I had a mattress with bugs in it, so I slept in the sensory room. The bugs are now in me . Patient believes she is allergic to zyprexa ; pt stated this is evidence by my tongue swimming ; T/W did not observe any involuntary movements, will continue to monitor. Zyprexa zydis dose changed to 20mg PO BID. Patient educated on: diagnosis and medication risk/benefits Informed Consent: understands Reason for continued inpatient stay Substantial Risk for: inability to function, rapid decompensation and med/psych decompensation Time Spent With Patient Time: Total time managing care of this patient today _30___ minutes.
[2023-10-01 09:45] VITALS: BP 141/94; PULSE 84; RESP 18; TEMP 36.7; O2SAT 99
[2023-10-01] MEDS: OLANZapine ODT 10 MG TAB.RAPDIS 20 MG TRANSLINGU ×2 (11:57→21:28)
[2023-10-01 19:55] VITALS: BP 152/93; PULSE 112; RESP 16; TEMP 36.6; O2SAT 97
[2023-10-02 08:42] LABS: Glucose, Whole Blood 129 mg/dL (60-115)
[2023-10-02 09:00] VITALS: BP 126/67; PULSE 82; RESP 16; TEMP 36.6; O2SAT 94
[2023-10-02] MEDS: OLANZapine ODT 10 MG TAB.RAPDIS 20 MG TRANSLINGU ×2 (09:09→22:27)
--- NOTE | 2023-10-02 09:16 | P.PNPSI_ITS ---
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 thought blocking. Observed responding to internal stimuli. Patient denies auditory hallucinations. Per nursing, patient had a verbal outburst last evening d/t believing another patient had on the unit. Patient stated, I had a mattress with bugs in it, so I slept in the sensory room. The bugs are now in me . Patient believes she is allergic to zyprexa ; pt stated this is evidence by my tongue swimming ; T/W did not observe any involuntary movements, will continue to monitor. Zyprexa zydis dose changed to 20mg PO BID. 10/02: Patient continues to presents paranoid and delusional. Observed mumbling to self. Patient denies auditory hallucinations. does not present with thought blocking today; more organized. Showered. Pt stated, my skin and fingers have weird sensations when I touch certain things. I'm worried about the bugs being inside of me. Patient reports pain and itching in her left ear. Hospitalist consult placed. When discussing hallucinations, pt stated, I don't believe in treating visual hallucinations with medications . denies SI/HI/AH. Continue current tx plan. Patient educated on: diagnosis and medication risk/benefits Informed Consent: understands Reason for continued inpatient stay Substantial Risk for: rapid decompensation and med/psych decompensation Time Spent With Patient Time: Total time managing care of this patient today _30___ minutes.
--- NOTE | 2023-10-02 16:59 | PM.EVENT ---
Event Note Date of Service: 10/02/23 Event Note: Patient is a 28-year-old female admitted to for paranoid delusions with a medical consult placed for left ear pain and itching. Patient complains of both left and right ear discomfort that she describes as both a ?mushiness and crackling pain located where my ears meet my brain . States she feels like there is something in her ears that she wants to get out. She denies any feelings of ear pressure. Upon examination, pt's external ear canals bilaterally clear, non-erythematous, with only a scant amount of cerumen visible. No impaction, no sign of infection. Tympanic membranes bilaterally pearly cid, nonbulging, and with good light reflex. Intact, non-erythematous. Malleolus visible. No signs of otitis media. Of note, pt has been somatically fixated of late, stating earlier today my skin and fingers ahve weird sensations when I touch certain things. I'm worried about the bugs inside of me. No indication for any treatment or intervention other than Tylenol for mild pain. Thank you for allowing us to participate in the care of this patient. Signing off at this time. Please re-consult if any acute complaints or issues arise. Time Spent With Patient Time: Total time managing care of this patient today ____ minutes.
[2023-10-02 22:20] VITALS: BP 137/93; PULSE 88; RESP 16; TEMP 36.8; O2SAT 96
[2023-10-03 06:00] VITALS: BP 145/74; PULSE 85; RESP 18; TEMP 36.7; O2SAT 96
[2023-10-03 07:00] VITALS: BMI 41.1
[2023-10-03 08:26] LABS: Glucose, Whole Blood 116 mg/dL (60-115)
--- NOTE | 2023-10-03 09:21 | HO.PSYCHPN ---
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 better on the risperidal . Zyprexa was changed to Zydis; d/t possible cheeking. dose increased to Zyprexa 30mg PO bedtime. 10/01: Patient continues to presents paranoid, delusional; thought blocking. Observed responding to internal stimuli. Patient denies auditory hallucinations. Per nursing, patient had a verbal outburst last evening d/t believing another patient had on the unit. Patient stated, I had a mattress with bugs in it, so I slept in the sensory room. The bugs are now in me . Patient believes she is allergic to zyprexa ; pt stated this is evidence by my tongue swimming ; T/W did not observe any involuntary movements, will continue to monitor. Zyprexa zydis dose changed to 20mg PO BID. 10/02: Patient continues to presents paranoid and delusional. Observed mumbling to self. Patient denies auditory hallucinations. does not present with thought blocking today; more organized. Showered. Pt stated, my skin and fingers have weird sensations when I touch certain things. I'm worried about the bugs being inside of me. Patient reports pain and itching in her left ear. Hospitalist consult placed. When discussing hallucinations, pt stated, I don't believe in treating visual hallucinations with medications . denies SI/HI/AH. Continue current tx plan. 10/03: Patient continues paranoid and delusional. Observed mumbling to self. Patient denies auditory hallucinations. Patient continues to perseverate on somatic complaints; pt stated, the hospitalist came and saw me but they said nothing is wrong with my ears. He just didn't catch it. I haven't had those bugs come out of me yet so I'm worried about that . During 1:1, RN was administering morning medications, when RN left the room, patient began dry heaving and was observed to vomit up sputum. No other incidents of vomiting occurred after this. Patient educated on: diagnosis, medication risk/benefits, therapeutic strategies and medical condition Informed Consent: understands Reason for continued inpatient stay Substantial Risk for: rapid decompensation and med/psych decompensation Time Spent With Patient Time: Total time managing care of this patient today _30___ minutes.
[2023-10-03] MEDS: OLANZapine ODT 10 MG TAB.RAPDIS 20 MG TRANSLINGU ×2 (10:55→21:03)
[2023-10-03] MEDS: Benztropine Mesylate 0.5 MG TABLET PO (10:56)
[2023-10-03] MEDS: metFORMIN HCl 1,000 MG TABLET 1000 MG PO (10:56)
[2023-10-03] MEDS: Propranolol HCL 10 MG TABLET PO (11:04)
[2023-10-03 17:44] LABS: Glucose, Whole Blood 111 mg/dL (60-115)
[2023-10-03 21:00] VITALS: BP 119/72; PULSE 80; RESP 20; TEMP 36.2; O2SAT 96
[2023-10-03 23:27] LABS: Glucose, Whole Blood 113 mg/dL (60-115)
[2023-10-04 07:43] LABS: Glucose, Whole Blood 103 mg/dL (60-115)
[2023-10-04 07:50] VITALS: BP 123/60; PULSE 75; RESP 14; TEMP 36.5; O2SAT 95
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
[2023-10-04] MEDS: OLANZapine ODT 10 MG TAB.RAPDIS 20 MG TRANSLINGU ×2 (10:45→22:11)
[2023-10-04 18:23] LABS: Glucose, Whole Blood 115 mg/dL (60-115)
[2023-10-04 19:25] VITALS: BP 143/63; PULSE 78; RESP 16; TEMP 36.8; O2SAT 96
[2023-10-04] MEDS: Benztropine Mesylate 0.5 MG TABLET PO (22:16)
[2023-10-05 08:03] LABS: Glucose, Whole Blood 107 mg/dL (60-115)
[2023-10-05 08:35] VITALS: BP 124/82; PULSE 94; RESP 20; O2SAT 96
[2023-10-05 08:45] VITALS: BP 118/77; PULSE 94; RESP 18; O2SAT 97
[2023-10-05] MEDS: metFORMIN HCl 1,000 MG TABLET 1000 MG PO ×2 (08:47→20:56)
[2023-10-05] MEDS: Propranolol HCL 10 MG TABLET PO ×2 (08:48→20:56)
[2023-10-05] MEDS: OLANZapine ODT 10 MG TAB.RAPDIS 20 MG TRANSLINGU ×2 (08:52→20:56)
[2023-10-05] MEDS: Benztropine Mesylate 0.5 MG TABLET PO ×2 (08:52→20:56)
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
[2023-10-05 20:55] VITALS: BP 127/60; PULSE 76; RESP 18; TEMP 36.6; O2SAT 99
[2023-10-05 21:20] LABS: Glucose, Whole Blood 153 mg/dL (60-115)
--- NOTE | 2023-10-06 01:11 | PC.NURSE ---
Sally up to the nurse's station at 0015. Patient reports that her brain is bleeding due to the Zyprexa. 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 Patient went on to say that she believes that bugs are coming out of her. This nurse requested that the next time a bug came out of her , to catch it, and bring it to the nurse on duty so we could identify it.
[2023-10-06 06:00] VITALS: BP 126/81; PULSE 66; RESP 16
[2023-10-06 07:59] LABS: Glucose, Whole Blood 99 mg/dL (60-115)
[2023-10-06] MEDS: Benztropine Mesylate 0.5 MG TABLET PO ×2 (09:06→22:00)
[2023-10-06] MEDS: Propranolol HCL 10 MG TABLET PO (09:06)
[2023-10-06] MEDS: OLANZapine ODT 10 MG TAB.RAPDIS 20 MG TRANSLINGU ×2 (09:06→21:59)
--- NOTE | 2023-10-06 11:41 | PC.NURSE ---
Pt refused labs x2, pt stated last time I had them done I felt faint. Dr. aLdd aware.
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
[2023-10-06 21:15] VITALS: BP 107/62; PULSE 73; RESP 18; TEMP 36.7; O2SAT 97
[2023-10-06 22:13] LABS: Glucose, Whole Blood 166 mg/dL (60-115)
[2023-10-07] MEDS: OLANZapine ODT 10 MG TAB.RAPDIS 20 MG TRANSLINGU (09:19)
[2023-10-07] MEDS: Benztropine Mesylate 0.5 MG TABLET PO (09:19)
[2023-10-07 09:45] LABS: Creatinine Clr Calc Pharmacy 107.5; Estimated Glomerular Filt Rate > 60
[2023-10-07 14:04] VITALS: BP 146/73; PULSE 74; RESP 16; TEMP 36.2; O2SAT 96
[2023-10-07 14:06] LABS: Glucose, Whole Blood 104 mg/dL (60-115)
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
[2023-10-07 18:00] VITALS: BP 124/67; PULSE 78; RESP 18; TEMP 36.6; O2SAT 96
[2023-10-07 21:36] LABS: Glucose, Whole Blood 153 mg/dL (60-115)
[2023-10-08 07:40] VITALS: BP 121/77; PULSE 80; RESP 16; TEMP 36.6; O2SAT 95
[2023-10-08 08:34] LABS: Glucose, Whole Blood 107 mg/dL (60-115)
[2023-10-08] MEDS: Benztropine Mesylate 0.5 MG TABLET PO ×2 (09:36→20:58)
[2023-10-08] MEDS: OLANZapine ODT 10 MG TAB.RAPDIS TRANSLINGU (09:36)
[2023-10-08] MEDS: Propranolol HCL 10 MG TABLET PO ×2 (09:36→20:53)
[2023-10-08] MEDS: metFORMIN HCl 1,000 MG TABLET 1000 MG PO (09:36)
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
[2023-10-08 17:17] LABS: Glucose, Whole Blood 145 mg/dL (60-115)
[2023-10-08 20:25] VITALS: BP 124/80; PULSE 84; RESP 16; TEMP 36.2; O2SAT 97
[2023-10-08] MEDS: OLANZapine ODT 10 MG TAB.RAPDIS 5 MG TRANSLINGU (20:54)
[2023-10-08] MEDS: Haloperidol Lactate Oral Conc 10 MG/5 ML ORAL.CONC 5 MG PO (20:55)
[2023-10-09 08:07] LABS: Glucose, Whole Blood 101 mg/dL (60-115)
[2023-10-09 08:23] VITALS: BP 110/59; PULSE 74; RESP 16; TEMP 36.6; O2SAT 95
[2023-10-09] MEDS: OLANZapine ODT 10 MG TAB.RAPDIS 5 MG TRANSLINGU ×2 (09:45→22:03)
[2023-10-09] MEDS: Haloperidol Lactate Oral Conc 10 MG/5 ML ORAL.CONC 5 MG PO ×2 (09:46→22:02)
[2023-10-09] MEDS: Benztropine Mesylate 0.5 MG TABLET PO ×2 (09:48→22:03)
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
[2023-10-09 21:15] VITALS: BP 112/63; PULSE 84; RESP 14; TEMP 36.3; O2SAT 97
[2023-10-10 07:45] LABS: Glucose, Whole Blood 162 mg/dL (60-115)
[2023-10-10 07:57] VITALS: BP 126/72; PULSE 78; RESP 16; TEMP 36.2; O2SAT 98
[2023-10-10] MEDS: Benztropine Mesylate 0.5 MG TABLET PO ×2 (10:21→23:21)
[2023-10-10] MEDS: Haloperidol Lactate Oral Conc 10 MG/5 ML ORAL.CONC 5 MG PO ×2 (10:21→23:21)
[2023-10-10 20:40] VITALS: BP 128/57; PULSE 89; RESP 16; TEMP 36.5; O2SAT 96
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
[2023-10-11 07:20] VITALS: BP 113/49; PULSE 87; RESP 16; TEMP 36.5; O2SAT 96
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
[2023-10-11] MEDS: Haloperidol Lactate Oral Conc 10 MG/5 ML ORAL.CONC 5 MG PO ×2 (10:30→22:21)
[2023-10-11] MEDS: Propranolol HCL 10 MG TABLET PO (10:31)
[2023-10-11] MEDS: Benztropine Mesylate 0.5 MG TABLET PO ×2 (10:31→22:11)
[2023-10-11] MEDS: metFORMIN HCl 1,000 MG TABLET 1000 MG PO (10:32)
[2023-10-11 20:17] VITALS: BP 119/76; PULSE 110; RESP 18; TEMP 36.7; O2SAT 95
[2023-10-12] MEDS: traZODone HCL 50 MG TABLET PO (00:29)
[2023-10-12 07:25] VITALS: BP 125/79; PULSE 91; TEMP 36.7; O2SAT 96
[2023-10-12 07:32] LABS: Glucose, Whole Blood 182 mg/dL (60-115)
[2023-10-12] MEDS: Haloperidol Lactate Oral Conc 10 MG/5 ML ORAL.CONC 5 MG PO ×2 (09:01→23:13)
[2023-10-12] MEDS: Propranolol HCL 10 MG TABLET PO ×2 (09:02→23:12)
[2023-10-12] MEDS: Benztropine Mesylate 0.5 MG TABLET PO ×2 (09:02→23:12)
[2023-10-12] MEDS: metFORMIN HCl 1,000 MG TABLET 1000 MG PO ×2 (09:02→23:12)
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
[2023-10-12 23:05] VITALS: BP 129/75; PULSE 93; O2SAT 97
[2023-10-12] MEDS: Magnesium Hydrox/Alum Hydrox 30 ML ORAL.SUSP PO (23:36)
--- NOTE | 2023-10-13 00:36 | PC.NURSE ---
Sally reported to this health science writer that she is very concerned about my physical health. I laid down on a bed that was infested with bugs and now I think they are inside my body. I can feel them moving around. Yesterday I had this pimple right here but I don't think it was a pimple I think it was a bug trying to escape my skin. I told the doctor but he told me that he thinks my physical symptoms are all in my head but, I don't think that's right. I know there is something wrong with me. There is really something seriously wrong with me but the doctor doesn't believe me. Can I get a CAT scan so we can see what the problem is. I seriously can feel things moving around inside of me patient given Maalox for her stomach with apparent positive effects
[2023-10-13 13:30] VITALS: BP 120/55; PULSE 90; RESP 16; TEMP 36.8; O2SAT 96
[2023-10-13] MEDS: Benztropine Mesylate 0.5 MG TABLET PO ×2 (13:57→21:00)
[2023-10-13] MEDS: Haloperidol Lactate Oral Conc 10 MG/5 ML ORAL.CONC 5 MG PO ×2 (13:58→20:59)
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
[2023-10-13] MEDS: traZODone HCL 50 MG TABLET PO (21:04)
[2023-10-13 21:08] VITALS: BP 123/57; PULSE 93; RESP 16; TEMP 36.6; O2SAT 97
[2023-10-13 21:24] LABS: Glucose, Whole Blood 270 mg/dL (60-115)
[2023-10-14 08:59] LABS: Glucose, Whole Blood 118 mg/dL (60-115)
[2023-10-14 09:25] VITALS: BP 121/65; PULSE 89; RESP 16; TEMP 36.2; O2SAT 97
[2023-10-14] MEDS: Benztropine Mesylate 0.5 MG TABLET PO ×2 (09:59→21:36)
[2023-10-14] MEDS: Haloperidol Lactate Oral Conc 10 MG/5 ML ORAL.CONC 5 MG PO ×2 (09:59→21:36)
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
[2023-10-14 19:55] VITALS: BP 133/63; PULSE 92; RESP 16; TEMP 36.6; O2SAT 96
[2023-10-14] MEDS: Miconazole 2 % Extra Thick Cr 56.7 Gm Tube 1 APPL TOPICAL (21:57)
[2023-10-15 07:50] VITALS: BP 133/66; PULSE 90; RESP 14; TEMP 36.1; O2SAT 97
[2023-10-15] MEDS: Haloperidol Lactate Oral Conc 10 MG/5 ML ORAL.CONC 5 MG PO ×2 (08:11→21:03)
[2023-10-15] MEDS: Benztropine Mesylate 0.5 MG TABLET PO ×2 (08:12→21:05)
[2023-10-15] MEDS: Propranolol HCL 10 MG TABLET PO ×2 (08:13→21:04)
[2023-10-15] MEDS: Miconazole 2 % Extra Thick Cr 56.7 Gm Tube 1 APPL TOPICAL (08:17)
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
[2023-10-15 13:52] LABS: Glucose, Whole Blood 291 mg/dL (60-115)
[2023-10-15 17:19] LABS: Glucose, Whole Blood 265 mg/dL (60-115)
[2023-10-15 22:46] LABS: COVID-19 Test Negative (Negative); IDNOW Serial# BCCEAD1C
[2023-10-16 08:26] VITALS: BP 126/68; PULSE 88; RESP 16; TEMP 36.6; O2SAT 97
[2023-10-16 08:27] LABS: Glucose, Whole Blood 220 mg/dL (60-115)
[2023-10-16] MEDS: Haloperidol Lactate Oral Conc 10 MG/5 ML ORAL.CONC 5 MG PO ×2 (08:27→21:10)
[2023-10-16] MEDS: Propranolol HCL 10 MG TABLET PO ×2 (08:27→21:11)
[2023-10-16] MEDS: metFORMIN HCl 1,000 MG TABLET 1000 MG PO ×2 (08:27→21:11)
[2023-10-16] MEDS: Benztropine Mesylate 0.5 MG TABLET PO ×2 (08:27→21:11)
--- NOTE | 2023-10-16 09:43 | P.PNPSI_ITS ---
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 hallucinations. Per nursing, patient had a verbal outburst last evening d/t believing another patient had on the unit. Patient stated, I had a mattress with bugs in it, so I slept in the sensory room. The bugs are now in me . Patient believes she is allergic to zyprexa ; pt stated this is evidence by my tongue swimming ; T/W did not observe any involuntary movements, will continue to monitor. Zyprexa zydis dose changed to 20mg PO BID. 10/02: Patient continues to presents paranoid and delusional. Observed mumbling to self. Patient denies auditory hallucinations. does not present with thought blocking today; more organized. Showered. Pt stated, my skin and fingers have weird sensations when I touch certain things. I'm worried about the bugs being inside of me. Patient reports pain and itching in her left ear. Hospitalist consult placed. When discussing hallucinations, pt stated, I don't believe in treating visual hallucinations with medications . denies SI/HI/AH. Continue current tx plan. 10/03: Patient continues paranoid and delusional. Observed mumbling to self. Patient denies auditory hallucinations. Patient continues to perseverate on somatic complaints; pt stated, the hospitalist came and saw me but they said nothing is wrong with my ears. He just didn't catch it. I haven't had those bugs come out of me yet so I'm worried about that . During 1:1, RN was administering morning medications, when RN left the room, patient began dry heaving and was observed to vomit up sputum. No other incidents of vomiting occurred after this. 10/04: Patient continues paranoid and delusional. Observed mumbling to self. Patient denies auditory hallucinations. Patient continues to perseverate on somatic complaints; pt stated, I'm still worried about bugs being inside of me . Patient became upset and started yelling at T/W, pt stated, You can't medicate the truth out of me! I know what happened! I know the [facility] staff made a bomb threat to my apartment and I'm here because of their retaliation! . Continue current tx plan. 10/04: Continues psychotic. Will Continue current management and treatment plan. Continue Zyprexa. 10/06: Continue current management and treatment plan. Consider switching back to Risperidone or Invega, or adding typical AP. 10/07/2023 Patient seen psychiatric follow-up. The patient has been more agitated disorganized intrusive having difficulty with linear conversations has not responded to olanzapine. She is up to 40 mg reportedly patient has been taking medication we have discussed in team a trial of haloperidol and if not tolerated or beneficial will resume Risperdal and hopefully eventually Invega sustained injection. 10/08: linear and logical in brief interaction today, calm. continue cross- titration, decreasing olanzapine to 5 BID today and adding haldol 5 BID. 10/09: Patient presents drowsy when meeting for 1:1. Patient reports she is having multiple medical concerns ; pt stated, I'm worried that my skin is poisonous because it feels funny. I couldn't sleep last night because I think my brain is bleeding. I'm also still worried about the bugs being inside of me . pt denies any pain. Pt reports she is not taking the Glucophage because it smells funny . DC Zyprexa after tonights dose. 10/10: cont haldol needs much support remains wuith thought she is being poisoned 10/11: Pt presents guarded today; pt stated, I'm not worried about the brain bleed but last night I felt there were bugs inside of my body . Patient reports she feels this medications is better than risperidal . denies SI/HI/VH/AH. Continue current tx plan. 10/12: infestation delusions continue. currently taking haldol 5 BID; T/C raising dose in several days if no further gains develop. 10/13: somnolent. no change in presentation. continue current mgmt. 10/13: somnolent. no paranoid delusions expressed. continue current mgmt. 10/15: Patient continues delusional and paranoid. Keeping to self. Observed reading book in room. Patient stated, I feel alright. Sometimes I feel like my brain is bleeding. I also feel like there is something stuck in my blood or stomach, like bugs. Like something is sucking my blood. Maybe we should get a CAT scan. Patient reports she continues to not regularly take the metformin d/t it tasting funny and not knowing if it's the right med . pt denies SI/HI/VH/AH. 10/16: Patient continues delusional and paranoid. Keeping to self. Observed reading book in room. Patient stated, I feel good. Things are okay. I haven't been having the sensation in my stomach anymore. I wouldn't mind getting a CAT scan just in case something is stuck in my blood . Continue current tx plan. Patient educated on: diagnosis and medication risk/benefits Informed Consent: understands Reason for continued inpatient stay Substantial Risk for: med/psych decompensation Time Spent With Patient Time: Total time managing care of this patient today _30___ minutes.
[2023-10-16 09:46] LABS: Creatinine Clr Calc Pharmacy 122.3; Estimated Glomerular Filt Rate > 60
[2023-10-16 21:00] VITALS: BP 111/62; PULSE 88; RESP 14; TEMP 36.3; O2SAT 96
[2023-10-16] MEDS: Miconazole 2 % Extra Thick Cr 56.7 Gm Tube 1 APPL TOPICAL (21:11)
[2023-10-17 07:00] VITALS: BMI 42.3
[2023-10-17 08:00] VITALS: BP 110/77; PULSE 98; RESP 16; TEMP 36.7; O2SAT 96
[2023-10-17 08:11] LABS: Glucose, Whole Blood 110 mg/dL (60-115)
[2023-10-17] MEDS: metFORMIN HCl 1,000 MG TABLET 1000 MG PO ×2 (08:27→22:44)
[2023-10-17] MEDS: Propranolol HCL 10 MG TABLET PO ×2 (08:27→22:44)
[2023-10-17] MEDS: Haloperidol Lactate Oral Conc 10 MG/5 ML ORAL.CONC 5 MG PO ×2 (08:27→22:44)
[2023-10-17] MEDS: Benztropine Mesylate 0.5 MG TABLET PO ×2 (08:29→22:44)
[2023-10-17] MEDS: Miconazole 2 % Extra Thick Cr 56.7 Gm Tube 1 APPL TOPICAL ×2 (08:37→22:46)
--- NOTE | 2023-10-17 09:18 | HO.PSYCHPN ---
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 about me again . Patient did have good insight into her presentation and stated, I think I was better on the risperidal . Zyprexa was changed to Zydis; d/t possible cheeking. dose increased to Zyprexa 30mg PO bedtime. 10/01: Patient continues to presents paranoid, delusional; thought blocking. Observed responding to internal stimuli. Patient denies auditory hallucinations. Per nursing, patient had a verbal outburst last evening d/t believing another patient had on the unit. Patient stated, I had a mattress with bugs in it, so I slept in the sensory room. The bugs are now in me . Patient believes she is allergic to zyprexa ; pt stated this is evidence by my tongue swimming ; T/W did not observe any involuntary movements, will continue to monitor. Zyprexa zydis dose changed to 20mg PO BID. 10/02: Patient continues to presents paranoid and delusional. Observed mumbling to self. Patient denies auditory hallucinations. does not present with thought blocking today; more organized. Showered. Pt stated, my skin and fingers have weird sensations when I touch certain things. I'm worried about the bugs being inside of me. Patient reports pain and itching in her left ear. Hospitalist consult placed. When discussing hallucinations, pt stated, I don't believe in treating visual hallucinations with medications . denies SI/HI/AH. Continue current tx plan. 10/03: Patient continues paranoid and delusional. Observed mumbling to self. Patient denies auditory hallucinations. Patient continues to perseverate on somatic complaints; pt stated, the hospitalist came and saw me but they said nothing is wrong with my ears. He just didn't catch it. I haven't had those bugs come out of me yet so I'm worried about that . During 1:1, RN was administering morning medications, when RN left the room, patient began dry heaving and was observed to vomit up sputum. No other incidents of vomiting occurred after this. 10/04: Patient continues paranoid and delusional. Observed mumbling to self. Patient denies auditory hallucinations. Patient continues to perseverate on somatic complaints; pt stated, I'm still worried about bugs being inside of me . Patient became upset and started yelling at T/W, pt stated, You can't medicate the truth out of me! I know what happened! I know the [facility] staff made a bomb threat to my apartment and I'm here because of their retaliation! . Continue current tx plan. 10/04: Continues psychotic. Will Continue current management and treatment plan. Continue Zyprexa. 10/06: Continue current management and treatment plan. Consider switching back to Risperidone or Invega, or adding typical AP. 10/07/2023 Patient seen psychiatric follow-up. The patient has been more agitated disorganized intrusive having difficulty with linear conversations has not responded to olanzapine. She is up to 40 mg reportedly patient has been taking medication we have discussed in team a trial of haloperidol and if not tolerated or beneficial will resume Risperdal and hopefully eventually Invega sustained injection. 10/08: linear and logical in brief interaction today, calm. continue cross-titration, decreasing olanzapine to 5 BID today and adding haldol 5 BID. 10/09: Patient presents drowsy when meeting for 1:1. Patient reports she is having multiple medical concerns ; pt stated, I'm worried that my skin is poisonous because it feels funny. I couldn't sleep last night because I think my brain is bleeding. I'm also still worried about the bugs being inside of me . pt denies any pain. Pt reports she is not taking the Glucophage because it smells funny . DC Zyprexa after tonights dose. 10/10: cont haldol needs much support remains renettaith thought she is being poisoned 10/11: Pt presents guarded today; pt stated, I'm not worried about the brain bleed but last night I felt there were bugs inside of my body . Patient reports she feels this medications is better than risperidal . denies SI/HI/VH/AH. Continue current tx plan. 10/12: infestation delusions continue. currently taking haldol 5 BID; T/C raising dose in several days if no further gains develop. 10/13: somnolent. no change in presentation. continue current mgmt. 10/13: somnolent. no paranoid delusions expressed. continue current mgmt. 10/15: Patient continues delusional and paranoid. Keeping to self. Observed reading book in room. Patient stated, I feel alright. Sometimes I feel like my brain is bleeding. I also feel like there is something stuck in my blood or stomach, like bugs. Like something is sucking my blood. Maybe we should get a CAT scan. Patient reports she continues to not regularly take the metformin d/t it tasting funny and not knowing if it's the right med . pt denies SI/HI/VH/AH. 10/16: Patient continues delusional and paranoid. Keeping to self. Observed reading book in room. Patient stated, I feel good. Things are okay. I haven't been having the sensation in my stomach anymore. I wouldn't mind getting a CAT scan just in case something is stuck in my blood . Continue current tx plan. 10/17: Attending groups, observed reading and coloring. Patient stated, I feel good. I had a good visit with my mom. I don't know if there are bugs inside of me or not but I'm trying to not think about it . Patient discussed how she felt her court hearing was not just because my 911 telecommunicator told me not to talk . denies SI/HI/VH/AH. Call out to patient's parents to determine if patient is allowed to return home. Patient educated on: diagnosis, medication risk/benefits and therapeutic strategies Informed Consent: understands Reason for continued inpatient stay Substantial Risk for: med/psych decompensation Time Spent With Patient Time: Total time managing care of this patient today _30___ minutes.
[2023-10-17 22:35] VITALS: BP 131/59; PULSE 84; RESP 16; TEMP 36.2; O2SAT 95
[2023-10-17 22:45] LABS: Glucose, Whole Blood 192 mg/dL (60-115)
--- NOTE | 2023-10-18 | ECG_ITS ---
Test Reason : qtc check Blood Pressure : / mmHG Vent. Rate : 078 BPM Atrial Rate : 078 BPM P-R Int : 152 ms QRS Dur : 074 ms QT Int : 362 ms P-R-T Axes : 036 056 052 degrees QTc Int : 412 ms Normal sinus rhythm Normal ECG When compared with ECG of 30-JUL-2023 11:48, No significant change was found Referred By: Gayatri Mcclendon Electronically Signed By:CHARLA ACOSTA
[2023-10-18 07:15] VITALS: BP 115/73; PULSE 88; RESP 14; TEMP 36.6; O2SAT 97
[2023-10-18 08:22] LABS: MANUAL DIFF FLAG NO
[2023-10-18 08:25] LABS: Basophils Absolute Auto 0.1 X10*3/uL (0.0-0.2); Basophils Percent Auto 0.4 % (0-2); Eosinophils Absolute Auto 0.4 X10*3/uL (0.0-0.4); Eosinophils Percent Auto 3.7 % (0-4); Hematocrit 37.6 % (37.0-47.0); Imm Gran Abs Auto 0.11 X10*3/uL (0.00-0.03); Imm Gran Pct Auto 0.9 % (0.0-0.4); Lymphocytes Absolute Auto 3.1 X10*3/uL (1.2-4.9); Lymphocytes Percent Auto 26.3 % (20-40); Mean Corpuscular HGB Conc 34.6 g/dl (31.0-35.0); Mean Corpuscular Volume 83.7 fL (80.0-98.0); Mean Platelet Volume 11.2 fL (9.4-12.3); Monocytes Absolute Auto 0.8 X10*3/uL (0.1-1.2); Monocytes Percent Auto 6.9 % (2-11); Neutrophils Absolute Auto 7.3 x10*3/uL (2.0-8.3); Neutrophils Percent Auto 61.8 % (45-73); Platelet Count 265 X10*3/uL (160-400); Red Blood Count 4.49 X10*6/uL (4.20-5.50); Red Cell Distribution Width 13.2 % (11.0-16.0); White Blood Count 11.8 X10*3/uL (4.8-10.8)
[2023-10-18 08:33] LABS: Ammonia 36 umol/L (13-55); Estimated Average Glucose 134 mg/dL; Hemoglobin A1c % 6.3 % (<6.0)
[2023-10-18] MEDS: Propranolol HCL 10 MG TABLET PO ×2 (08:44→20:59)
[2023-10-18] MEDS: Benztropine Mesylate 0.5 MG TABLET PO ×2 (08:44→20:59)
[2023-10-18] MEDS: Haloperidol Lactate Oral Conc 10 MG/5 ML ORAL.CONC 5 MG PO ×2 (08:44→20:57)
[2023-10-18] MEDS: metFORMIN HCl 1,000 MG TABLET 1000 MG PO ×2 (08:44→20:59)
[2023-10-18 08:45] LABS: Alanine Aminotransferase 74 U/L (0-31); Albumin Level 3.9 g/dL (3.5-5.0); Alkaline Phosphatase 56 U/L (39-117); Anion Gap 16 (12-20); Aspartate Amino Transferase 65 U/L (5-31); Bilirubin Direct 0.1 mg/dL (0.0-0.5); Bilirubin Total 0.3 mg/dL (0.0-1.0); Blood Urea Nitrogen 16 mg/dL (9-16); Calcium 9.2 mg/dL (8.4-10.2); Carbon Dioxide 22 mmol/L (22-29); Chloride 102 mmol/L (96-108); Cholesterol 211 mg/dL (<200); Estimated Glomerular Filt Rate > 60; Glucose Random 204 mg/dL (60-115); HDL Cholesterol 47 mg/dL (>40); LDL Cholesterol Calculated 109 mg/dL (<100); Sodium 136 mmol/L (135-145); Total Protein 7.1 g/dL (6.5-8.0); Triglycerides 276 mg/dL (<150)
[2023-10-18 09:00] LABS: TSH reflex Free T4 2.46 uIU/mL (0.32-4.0)
[2023-10-18 09:12] LABS: Glucose, Whole Blood 232 mg/dL (60-115)
--- NOTE | 2023-10-18 09:12 | HO.PSYCHPN ---
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 hospital. Patient stated, I'm going to go and live with my parents, find a job and try to save up to move out again. I'm going to ask my friends and family if they heard anything about the book or movie being written about me. If not then I will try to let it go . Risperidal DC'd. Increased Zyprexa to 15mg PO bedtime. Start: Cogentin 0.5mg PO bedtime. 09/28 continue same treatment. , increase Zyprexa to 20 mg p.o. q.h.s. and add p.r.n. Zyprexa for psychosis the patient is grossly psychotic. 09/30: Patient has decompensated; presents paranoid, delusional; thought blocking, T/W had to call patient's name numerous times before she would focus on what was being asked. Observed responding to internal stimuli. Patient denies auditory hallucinations, however reports visual hallucinations at this time; when asked to elaborate, pt stated, I'm seeing too many things to mention . When discussing her weekend patient would stop mid-sentence and state, I'm sharing too much information. I think people are talking and spreading rumors about me again . Patient did have good insight into her presentation and stated, I think I was better on the risperidal . Zyprexa was changed to Zydis; d/t possible cheeking. dose increased to Zyprexa 30mg PO bedtime. 10/01: Patient continues to presents paranoid, delusional; thought blocking. Observed responding to internal stimuli. Patient denies auditory hallucinations. Per nursing, patient had a verbal outburst last evening d/t believing another patient had on the unit. Patient stated, I had a mattress with bugs in it, so I slept in the sensory room. The bugs are now in me . Patient believes she is allergic to zyprexa ; pt stated this is evidence by my tongue swimming ; T/W did not observe any involuntary movements, will continue to monitor. Zyprexa zydis dose changed to 20mg PO BID. 10/02: Patient continues to presents paranoid and delusional. Observed mumbling to self. Patient denies auditory hallucinations. does not present with thought blocking today; more organized. Showered. Pt stated, my skin and fingers have weird sensations when I touch certain things. I'm worried about the bugs being inside of me. Patient reports pain and itching in her left ear. Hospitalist consult placed. When discussing hallucinations, pt stated, I don't believe in treating visual hallucinations with medications . denies SI/HI/AH. Continue current tx plan. 10/03: Patient continues paranoid and delusional. Observed mumbling to self. Patient denies auditory hallucinations. Patient continues to perseverate on somatic complaints; pt stated, the hospitalist came and saw me but they said nothing is wrong with my ears. He just didn't catch it. I haven't had those bugs come out of me yet so I'm worried about that . During 1:1, RN was administering morning medications, when RN left the room, patient began dry heaving and was observed to vomit up sputum. No other incidents of vomiting occurred after this. 10/04: Patient continues paranoid and delusional. Observed mumbling to self. Patient denies auditory hallucinations. Patient continues to perseverate on somatic complaints; pt stated, I'm still worried about bugs being inside of me . Patient became upset and started yelling at T/W, pt stated, You can't medicate the truth out of me! I know what happened! I know the [facility] staff made a bomb threat to my apartment and I'm here because of their retaliation! . Continue current tx plan. 10/04: Continues psychotic. Will Continue current management and treatment plan. Continue Zyprexa. 10/06: Continue current management and treatment plan. Consider switching back to Risperidone or Invega, or adding typical AP. 10/07/2023 Patient seen psychiatric follow-up. The patient has been more agitated disorganized intrusive having difficulty with linear conversations has not responded to olanzapine. She is up to 40 mg reportedly patient has been taking medication we have discussed in team a trial of haloperidol and if not tolerated or beneficial will resume Risperdal and hopefully eventually Invega sustained injection. 10/08: linear and logical in brief interaction today, calm. continue cross-titration, decreasing olanzapine to 5 BID today and adding haldol 5 BID. 10/09: Patient presents drowsy when meeting for 1:1. Patient reports she is having multiple medical concerns ; pt stated, I'm worried that my skin is poisonous because it feels funny. I couldn't sleep last night because I think my brain is bleeding. I'm also still worried about the bugs being inside of me . pt denies any pain. Pt reports she is not taking the Glucophage because it smells funny . DC Zyprexa after tonights dose. 10/10: cont haldol needs much support remains jero thought she is being poisoned 10/11: Pt presents guarded today; pt stated, I'm not worried about the brain bleed but last night I felt there were bugs inside of my body . Patient reports she feels this medications is better than risperidal . denies SI/HI/VH/AH. Continue current tx plan. 10/12: infestation delusions continue. currently taking haldol 5 BID; T/C raising dose in several days if no further gains develop. 10/13: somnolent. no change in presentation. continue current mgmt. 10/13: somnolent. no paranoid delusions expressed. continue current mgmt. 10/15: Patient continues delusional and paranoid. Keeping to self. Observed reading book in room. Patient stated, I feel alright. Sometimes I feel like my brain is bleeding. I also feel like there is something stuck in my blood or stomach, like bugs. Like something is sucking my blood. Maybe we should get a CAT scan. Patient reports she continues to not regularly take the metformin d/t it tasting funny and not knowing if it's the right med . pt denies SI/HI/VH/AH. 10/16: Patient continues delusional and paranoid. Keeping to self. Observed reading book in room. Patient stated, I feel good. Things are okay. I haven't been having the sensation in my stomach anymore. I wouldn't mind getting a CAT scan just in case something is stuck in my blood . Continue current tx plan. 10/17: Attending groups, observed reading and coloring. Patient stated, I feel good. I had a good visit with my mom. I don't know if there are bugs inside of me or not but I'm trying to not think about it . Patient discussed how she felt her court hearing was not just because my tool tender told me not to talk . denies SI/HI/VH/AH. Call out to patient's parents to determine if patient is allowed to return home. 10/18: Attending groups, observed reading and coloring. keeping to self. Patient reports she is doing okay ; hoping to return home soon. Guarded today. Superficial in conversation. Left VM for patient's father, Ervin Reading, waiting for call back. Start: Haldol dec 100mg IM Q28 days Changed: Haldol liquid 5mg PO BID to 10mg PO bedtime Cogentin 0.5mg PO BID to 0.5mg PO bedtime Patient educated on: diagnosis and medication risk/benefits Informed Consent: understands Reason for continued inpatient stay Substantial Risk for: med/psych decompensation Time Spent With Patient Time: Total time managing care of this patient today _30___ minutes.
[2023-10-18] MEDS: Miconazole 2 % Extra Thick Cr 56.7 Gm Tube 1 APPL TOPICAL (09:40)
[2023-10-18] MEDS: Haloperidol Decanoate 50 MG/ML VIAL 100 MG IM (15:43)
[2023-10-18 20:00] VITALS: BP 125/70; PULSE 94; RESP 16; TEMP 36.5; O2SAT 99
--- NOTE | 2023-10-19 08:06 | HO.PSYCHPN ---
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 SI/HI/VH/AH. Increase Zyprexa to 10mg PO bedtime. decrease risperidal to 2mg PO daily at 1900. 09/27: Patient discussed what she plans on doing when discharged from hospital. Patient stated, I'm going to go and live with my parents, find a job and try to save up to move out again. I'm going to ask my friends and family if they heard anything about the book or movie being written about me. If not then I will try to let it go . Risperidal DC'd. Increased Zyprexa to 15mg PO bedtime. Start: Cogentin 0.5mg PO bedtime. 09/28 continue same treatment. , increase Zyprexa to 20 mg p.o. q.h.s. and add p.r.n. Zyprexa for psychosis the patient is grossly psychotic. 09/30: Patient has decompensated; presents paranoid, delusional; thought blocking, T/W had to call patient's name numerous times before she would focus on what was being asked. Observed responding to internal stimuli. Patient denies auditory hallucinations, however reports visual hallucinations at this time; when asked to elaborate, pt stated, I'm seeing too many things to mention . When discussing her weekend patient would stop mid-sentence and state, I'm sharing too much information. I think people are talking and spreading rumors about me again . Patient did have good insight into her presentation and stated, I think I was better on the risperidal . Zyprexa was changed to Zydis; d/t possible cheeking. dose increased to Zyprexa 30mg PO bedtime. 10/01: Patient continues to presents paranoid, delusional; thought blocking. Observed responding to internal stimuli. Patient denies auditory hallucinations. Per nursing, patient had a verbal outburst last evening d/t believing another patient had on the unit. Patient stated, I had a mattress with bugs in it, so I slept in the sensory room. The bugs are now in me . Patient believes she is allergic to zyprexa ; pt stated this is evidence by my tongue swimming ; T/W did not observe any involuntary movements, will continue to monitor. Zyprexa zydis dose changed to 20mg PO BID. 10/02: Patient continues to presents paranoid and delusional. Observed mumbling to self. Patient denies auditory hallucinations. does not present with thought blocking today; more organized. Showered. Pt stated, my skin and fingers have weird sensations when I touch certain things. I'm worried about the bugs being inside of me. Patient reports pain and itching in her left ear. Hospitalist consult placed. When discussing hallucinations, pt stated, I don't believe in treating visual hallucinations with medications . denies SI/HI/AH. Continue current tx plan. 10/03: Patient continues paranoid and delusional. Observed mumbling to self. Patient denies auditory hallucinations. Patient continues to perseverate on somatic complaints; pt stated, the hospitalist came and saw me but they said nothing is wrong with my ears. He just didn't catch it. I haven't had those bugs come out of me yet so I'm worried about that . During 1:1, RN was administering morning medications, when RN left the room, patient began dry heaving and was observed to vomit up sputum. No other incidents of vomiting occurred after this. 10/04: Patient continues paranoid and delusional. Observed mumbling to self. Patient denies auditory hallucinations. Patient continues to perseverate on somatic complaints; pt stated, I'm still worried about bugs being inside of me . Patient became upset and started yelling at T/W, pt stated, You can't medicate the truth out of me! I know what happened! I know the [facility] staff made a bomb threat to my apartment and I'm here because of their retaliation! . Continue current tx plan. 10/04: Continues psychotic. Will Continue current management and treatment plan. Continue Zyprexa. 10/06: Continue current management and treatment plan. Consider switching back to Risperidone or Invega, or adding typical AP. 10/07/2023 Patient seen psychiatric follow-up. The patient has been more agitated disorganized intrusive having difficulty with linear conversations has not responded to olanzapine. She is up to 40 mg reportedly patient has been taking medication we have discussed in team a trial of haloperidol and if not tolerated or beneficial will resume Risperdal and hopefully eventually Invega sustained injection. 10/08: linear and logical in brief interaction today, calm. continue cross-titration, decreasing olanzapine to 5 BID today and adding haldol 5 BID. 10/09: Patient presents drowsy when meeting for 1:1. Patient reports she is having multiple medical concerns ; pt stated, I'm worried that my skin is poisonous because it feels funny. I couldn't sleep last night because I think my brain is bleeding. I'm also still worried about the bugs being inside of me . pt denies any pain. Pt reports she is not taking the Glucophage because it smells funny . DC Zyprexa after tonights dose. 10/10: cont haldol needs much support remains wujl thought she is being poisoned 10/11: Pt presents guarded today; pt stated, I'm not worried about the brain bleed but last night I felt there were bugs inside of my body . Patient reports she feels this medications is better than risperidal . denies SI/HI/VH/AH. Continue current tx plan. 10/12: infestation delusions continue. currently taking haldol 5 BID; T/C raising dose in several days if no further gains develop. 10/13: somnolent. no change in presentation. continue current mgmt. 10/13: somnolent. no paranoid delusions expressed. continue current mgmt. 10/15: Patient continues delusional and paranoid. Keeping to self. Observed reading book in room. Patient stated, I feel alright. Sometimes I feel like my brain is bleeding. I also feel like there is something stuck in my blood or stomach, like bugs. Like something is sucking my blood. Maybe we should get a CAT scan. Patient reports she continues to not regularly take the metformin d/t it tasting funny and not knowing if it's the right med . pt denies SI/HI/VH/AH. 10/16: Patient continues delusional and paranoid. Keeping to self. Observed reading book in room. Patient stated, I feel good. Things are okay. I haven't been having the sensation in my stomach anymore. I wouldn't mind getting a CAT scan just in case something is stuck in my blood . Continue current tx plan. 10/17: Attending groups, observed reading and coloring. Patient stated, I feel good. I had a good visit with my mom. I don't know if there are bugs inside of me or not but I'm trying to not think about it . Patient discussed how she felt her court hearing was not just because my striper told me not to talk . denies SI/HI/VH/AH. Call out to patient's parents to determine if patient is allowed to return home. 10/18: Attending groups, observed reading and coloring. keeping to self. Patient reports she is doing okay ; hoping to return home soon. Guarded today. Superficial in conversation. Left VM for patient's father, Ervin Burgos, waiting for call back. Start: Haldol dec 100mg IM Q28 days Changed: Haldol liquid 5mg PO BID to 10mg PO bedtime Cogentin 0.5mg PO BID to 0.5mg PO bedtime 10/19 more withdrawn to room slowed thinking Patient educated on: medication risk/benefits Informed Consent: understands Reason for continued inpatient stay Substantial Risk for: rapid decompensation Time Spent With Patient Time: Total time managing care of this patient today ____ minutes.
[2023-10-19 08:08] VITALS: BP 131/80; PULSE 92; RESP 16; TEMP 36.3; O2SAT 97
[2023-10-19] MEDS: Propranolol HCL 10 MG TABLET PO ×2 (08:10→21:20)
[2023-10-19] MEDS: metFORMIN HCl 1,000 MG TABLET 1000 MG PO ×2 (08:11→21:20)
[2023-10-19] MEDS: Miconazole 2 % Extra Thick Cr 56.7 Gm Tube 1 APPL TOPICAL ×2 (08:57→21:20)
[2023-10-19 09:54] LABS: Glucose, Whole Blood 199 mg/dL (60-115)
--- NOTE | 2023-10-19 13:03 | PM.EVENT ---
Event Note Date of Service: 10/19/23 Event Note: AST/ALT chronically mildly elevated and relatively stable. Asymptomatic. Would recommend evaluation of possible hepatotoxins such as geodon. Cholesterol levels are reasonably controlled at this time, only slightly above goal for patient age. LDL goal is <100. Unclear if patient has history of diabetes vs prediabetes. A1c this admission 6.3% is consistent with prediabetes. If diabetic, goal for LDL <70. This can be followed outpt and managed by PCP. Unlikely to need medication intervention with mild elevation at this age. Recommend lifestyle modification for weight loss with diet lower in unhealthy fats, simple carbohydrates/sugar and increased exercise. Time Spent With Patient Time: Total time managing care of this patient today ____ minutes.
--- NOTE | 2023-10-19 17:44 | PC.NURSE ---
Patient declined POC, requested later .
[2023-10-19 21:15] VITALS: BP 137/65; PULSE 89; RESP 18; TEMP 36.4; O2SAT 96
[2023-10-19] MEDS: Benztropine Mesylate 0.5 MG TABLET PO (21:20)
[2023-10-19] MEDS: Haloperidol Lactate Oral Conc 10 MG/5 ML ORAL.CONC PO (21:20)
[2023-10-20 07:52] LABS: Glucose, Whole Blood 141 mg/dL (60-115)
[2023-10-20 08:10] LABS: Estimated Glomerular Filt Rate > 60
[2023-10-20 08:46] VITALS: BP 122/63; PULSE 93; RESP 16; TEMP 35.9; O2SAT 95
[2023-10-20] MEDS: metFORMIN HCl 1,000 MG TABLET 1000 MG PO ×2 (08:47→21:01)
[2023-10-20] MEDS: Propranolol HCL 10 MG TABLET PO ×2 (08:47→21:01)
[2023-10-20] MEDS: Miconazole 2 % Extra Thick Cr 56.7 Gm Tube 1 APPL TOPICAL ×2 (08:53→21:07)
--- NOTE | 2023-10-20 12:49 | P.PNPSI_ITS ---
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 cheeking. dose increased to Zyprexa 30mg PO bedtime. 10/01: Patient continues to presents paranoid, delusional; thought blocking. Observed responding to internal stimuli. Patient denies auditory hallucinations. Per nursing, patient had a verbal outburst last evening d/t believing another patient had on the unit. Patient stated, I had a mattress with bugs in it, so I slept in the sensory room. The bugs are now in me . Patient believes she is allergic to zyprexa ; pt stated this is evidence by my tongue swimming ; T/W did not observe any involuntary movements, will continue to monitor. Zyprexa zydis dose changed to 20mg PO BID. 10/02: Patient continues to presents paranoid and delusional. Observed mumbling to self. Patient denies auditory hallucinations. does not present with thought blocking today; more organized. Showered. Pt stated, my skin and fingers have weird sensations when I touch certain things. I'm worried about the bugs being inside of me. Patient reports pain and itching in her left ear. Hospitalist consult placed. When discussing hallucinations, pt stated, I don't believe in treating visual hallucinations with medications . denies SI/HI/AH. Continue current tx plan. 10/03: Patient continues paranoid and delusional. Observed mumbling to self. Patient denies auditory hallucinations. Patient continues to perseverate on somatic complaints; pt stated, the hospitalist came and saw me but they said nothing is wrong with my ears. He just didn't catch it. I haven't had those bugs come out of me yet so I'm worried about that . During 1:1, RN was administering morning medications, when RN left the room, patient began dry heaving and was observed to vomit up sputum. No other incidents of vomiting occurred after this. 10/04: Patient continues paranoid and delusional. Observed mumbling to self. Patient denies auditory hallucinations. Patient continues to perseverate on somatic complaints; pt stated, I'm still worried about bugs being inside of me . Patient became upset and started yelling at T/W, pt stated, You can't medicate the truth out of me! I know what happened! I know the [facility] staff made a bomb threat to my apartment and I'm here because of their retaliation! . Continue current tx plan. 10/04: Continues psychotic. Will Continue current management and treatment plan. Continue Zyprexa. 10/06: Continue current management and treatment plan. Consider switching back to Risperidone or Invega, or adding typical AP. 10/07/2023 Patient seen psychiatric follow-up. The patient has been more agitated disorganized intrusive having difficulty with linear conversations has not responded to olanzapine. She is up to 40 mg reportedly patient has been taking medication we have discussed in team a trial of haloperidol and if not tolerated or beneficial will resume Risperdal and hopefully eventually Invega sustained injection. 10/08: linear and logical in brief interaction today, calm. continue cross- titration, decreasing olanzapine to 5 BID today and adding haldol 5 BID. 10/09: Patient presents drowsy when meeting for 1:1. Patient reports she is having multiple medical concerns ; pt stated, I'm worried that my skin is poisonous because it feels funny. I couldn't sleep last night because I think my brain is bleeding. I'm also still worried about the bugs being inside of me . pt denies any pain. Pt reports she is not taking the Glucophage because it smells funny . DC Zyprexa after tonights dose. 10/10: cont haldol needs much support remains renettaith thought she is being poisoned 10/11: Pt presents guarded today; pt stated, I'm not worried about the brain bleed but last night I felt there were bugs inside of my body . Patient reports she feels this medications is better than risperidal . denies SI/HI/VH/AH. Continue current tx plan. 10/12: infestation delusions continue. currently taking haldol 5 BID; T/C raising dose in several days if no further gains develop. 10/13: somnolent. no change in presentation. continue current mgmt. 10/13: somnolent. no paranoid delusions expressed. continue current mgmt. 10/15: Patient continues delusional and paranoid. Keeping to self. Observed reading book in room. Patient stated, I feel alright. Sometimes I feel like my brain is bleeding. I also feel like there is something stuck in my blood or stomach, like bugs. Like something is sucking my blood. Maybe we should get a CAT scan. Patient reports she continues to not regularly take the metformin d/t it tasting funny and not knowing if it's the right med . pt denies SI/HI/VH/AH. 10/16: Patient continues delusional and paranoid. Keeping to self. Observed reading book in room. Patient stated, I feel good. Things are okay. I haven't been having the sensation in my stomach anymore. I wouldn't mind getting a CAT scan just in case something is stuck in my blood . Continue current tx plan. 10/17: Attending groups, observed reading and coloring. Patient stated, I feel good. I had a good visit with my mom. I don't know if there are bugs inside of me or not but I'm trying to not think about it . Patient discussed how she felt her court hearing was not just because my wood mechanist told me not to talk . denies SI/HI/VH/AH. Call out to patient's parents to determine if patient is allowed to return home. 10/18: Attending groups, observed reading and coloring. keeping to self. Patient reports she is doing okay ; hoping to return home soon. Guarded today. Superficial in conversation. Left VM for patient's father, Ervin Burgos, waiting for call back. Start: Haldol dec 100mg IM Q28 days Changed: Haldol liquid 5mg PO BID to 10mg PO bedtime Cogentin 0.5mg PO BID to 0.5mg PO bedtime 10/19 more withdrawn to room slowed thinking 10/20 seemed a bit more engaged today CTP Patient educated on: medication risk/benefits Informed Consent: further education needed Reason for continued inpatient stay Substantial Risk for: rapid decompensation Time Spent With Patient Time: Total time managing care of this patient today ____ minutes.
[2023-10-20 17:33] LABS: Glucose, Whole Blood 194 mg/dL (60-115)
[2023-10-20 20:50] VITALS: BP 112/67; PULSE 96; RESP 16; TEMP 36.6; O2SAT 95
[2023-10-20] MEDS: Benztropine Mesylate 0.5 MG TABLET PO (21:01)
[2023-10-20] MEDS: Haloperidol Lactate Oral Conc 10 MG/5 ML ORAL.CONC PO (21:01)
[2023-10-21 07:56] LABS: Glucose, Whole Blood 102 mg/dL (60-115)
[2023-10-21 08:29] VITALS: BP 125/77; PULSE 80; RESP 18; TEMP 36; O2SAT 96
[2023-10-21] MEDS: Propranolol HCL 10 MG TABLET PO ×2 (08:30→21:15)
[2023-10-21] MEDS: metFORMIN HCl 1,000 MG TABLET 1000 MG PO ×2 (08:30→21:14)
[2023-10-21] MEDS: Miconazole 2 % Extra Thick Cr 56.7 Gm Tube 1 APPL TOPICAL ×2 (08:30→21:18)
--- NOTE | 2023-10-21 12:32 | P.PNPSI_ITS ---
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 the risperidal . Zyprexa was changed to Zydis; d/t possible cheeking. dose increased to Zyprexa 30mg PO bedtime. 10/01: Patient continues to presents paranoid, delusional; thought blocking. Observed responding to internal stimuli. Patient denies auditory hallucinations. Per nursing, patient had a verbal outburst last evening d/t believing another patient had on the unit. Patient stated, I had a mattress with bugs in it, so I slept in the sensory room. The bugs are now in me . Patient believes she is allergic to zyprexa ; pt stated this is evidence by my tongue swimming ; T/W did not observe any involuntary movements, will continue to monitor. Zyprexa zydis dose changed to 20mg PO BID. 10/02: Patient continues to presents paranoid and delusional. Observed mumbling to self. Patient denies auditory hallucinations. does not present with thought blocking today; more organized. Showered. Pt stated, my skin and fingers have weird sensations when I touch certain things. I'm worried about the bugs being inside of me. Patient reports pain and itching in her left ear. Hospitalist consult placed. When discussing hallucinations, pt stated, I don't believe in treating visual hallucinations with medications . denies SI/HI/AH. Continue current tx plan. 10/03: Patient continues paranoid and delusional. Observed mumbling to self. Patient denies auditory hallucinations. Patient continues to perseverate on somatic complaints; pt stated, the hospitalist came and saw me but they said nothing is wrong with my ears. He just didn't catch it. I haven't had those bugs come out of me yet so I'm worried about that . During 1:1, RN was administering morning medications, when RN left the room, patient began dry heaving and was observed to vomit up sputum. No other incidents of vomiting occurred after this. 10/04: Patient continues paranoid and delusional. Observed mumbling to self. Patient denies auditory hallucinations. Patient continues to perseverate on somatic complaints; pt stated, I'm still worried about bugs being inside of me . Patient became upset and started yelling at T/W, pt stated, You can't medicate the truth out of me! I know what happened! I know the [facility] staff made a bomb threat to my apartment and I'm here because of their retaliation! . Continue current tx plan. 10/04: Continues psychotic. Will Continue current management and treatment plan. Continue Zyprexa. 10/06: Continue current management and treatment plan. Consider switching back to Risperidone or Invega, or adding typical AP. 10/07/2023 Patient seen psychiatric follow-up. The patient has been more agitated disorganized intrusive having difficulty with linear conversations has not responded to olanzapine. She is up to 40 mg reportedly patient has been taking medication we have discussed in team a trial of haloperidol and if not tolerated or beneficial will resume Risperdal and hopefully eventually Invega sustained injection. 10/08: linear and logical in brief interaction today, calm. continue cross- titration, decreasing olanzapine to 5 BID today and adding haldol 5 BID. 10/09: Patient presents drowsy when meeting for 1:1. Patient reports she is having multiple medical concerns ; pt stated, I'm worried that my skin is poisonous because it feels funny. I couldn't sleep last night because I think my brain is bleeding. I'm also still worried about the bugs being inside of me . pt denies any pain. Pt reports she is not taking the Glucophage because it smells funny . DC Zyprexa after tonights dose. 10/10: cont haldol needs much support remains wuith thought she is being poisoned 10/11: Pt presents guarded today; pt stated, I'm not worried about the brain bleed but last night I felt there were bugs inside of my body . Patient reports she feels this medications is better than risperidal . denies SI/HI/VH/AH. Continue current tx plan. 10/12: infestation delusions continue. currently taking haldol 5 BID; T/C raising dose in several days if no further gains develop. 10/13: somnolent. no change in presentation. continue current mgmt. 10/13: somnolent. no paranoid delusions expressed. continue current mgmt. 10/15: Patient continues delusional and paranoid. Keeping to self. Observed reading book in room. Patient stated, I feel alright. Sometimes I feel like my brain is bleeding. I also feel like there is something stuck in my blood or stomach, like bugs. Like something is sucking my blood. Maybe we should get a CAT scan. Patient reports she continues to not regularly take the metformin d/t it tasting funny and not knowing if it's the right med . pt denies SI/HI/VH/AH. 10/16: Patient continues delusional and paranoid. Keeping to self. Observed reading book in room. Patient stated, I feel good. Things are okay. I haven't been having the sensation in my stomach anymore. I wouldn't mind getting a CAT scan just in case something is stuck in my blood . Continue current tx plan. 10/17: Attending groups, observed reading and coloring. Patient stated, I feel good. I had a good visit with my mom. I don't know if there are bugs inside of me or not but I'm trying to not think about it . Patient discussed how she felt her court hearing was not just because my [facility] specialists told me not to talk . denies SI/HI/VH/AH. Call out to patient's parents to determine if patient is allowed to return home. 10/18: Attending groups, observed reading and coloring. keeping to self. Patient reports she is doing okay ; hoping to return home soon. Guarded today. Superficial in conversation. Left VM for patient's father, Ervin Burgos, waiting for call back. Start: Haldol dec 100mg IM Q28 days Changed: Haldol liquid 5mg PO BID to 10mg PO bedtime Cogentin 0.5mg PO BID to 0.5mg PO bedtime 10/19 more withdrawn to room slowed thinking 10/20 seemed a bit more engaged today CTP 10/21/23 more engaged 1:1 , still isolating CTP Patient educated on: medication risk/benefits and medical condition Informed Consent: understands Reason for continued inpatient stay Substantial Risk for: rapid decompensation Time Spent With Patient Time: Total time managing care of this patient today ____ minutes.
[2023-10-21 21:13] VITALS: BP 128/67; PULSE 95; RESP 20; TEMP 36.7; O2SAT 97
[2023-10-21 21:13] LABS: Glucose, Whole Blood 219 mg/dL (60-115)
[2023-10-21] MEDS: traZODone HCL 50 MG TABLET PO (21:14)
[2023-10-21] MEDS: Haloperidol Lactate Oral Conc 10 MG/5 ML ORAL.CONC PO (21:15)
[2023-10-21] MEDS: Benztropine Mesylate 0.5 MG TABLET PO (21:15)
[2023-10-22 08:19] LABS: Glucose, Whole Blood 122 mg/dL (60-115)
[2023-10-22 09:30] VITALS: BP 127/71; PULSE 88; RESP 16; TEMP 36.6; O2SAT 96
[2023-10-22] MEDS: Propranolol HCL 10 MG TABLET PO ×2 (10:00→21:12)
[2023-10-22] MEDS: metFORMIN HCl 1,000 MG TABLET 1000 MG PO ×2 (10:00→21:11)
--- NOTE | 2023-10-22 15:03 | HO.PSYCHPN ---
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 hallucinations. does not present with thought blocking today; more organized. Showered. Pt stated, my skin and fingers have weird sensations when I touch certain things. I'm worried about the bugs being inside of me. Patient reports pain and itching in her left ear. Hospitalist consult placed. When discussing hallucinations, pt stated, I don't believe in treating visual hallucinations with medications . denies SI/HI/AH. Continue current tx plan. 10/03: Patient continues paranoid and delusional. Observed mumbling to self. Patient denies auditory hallucinations. Patient continues to perseverate on somatic complaints; pt stated, the hospitalist came and saw me but they said nothing is wrong with my ears. He just didn't catch it. I haven't had those bugs come out of me yet so I'm worried about that . During 1:1, RN was administering morning medications, when RN left the room, patient began dry heaving and was observed to vomit up sputum. No other incidents of vomiting occurred after this. 10/04: Patient continues paranoid and delusional. Observed mumbling to self. Patient denies auditory hallucinations. Patient continues to perseverate on somatic complaints; pt stated, I'm still worried about bugs being inside of me . Patient became upset and started yelling at T/W, pt stated, You can't medicate the truth out of me! I know what happened! I know the [facility] staff made a bomb threat to my apartment and I'm here because of their retaliation! . Continue current tx plan. 10/04: Continues psychotic. Will Continue current management and treatment plan. Continue Zyprexa. 10/06: Continue current management and treatment plan. Consider switching back to Risperidone or Invega, or adding typical AP. 10/07/2023 Patient seen psychiatric follow-up. The patient has been more agitated disorganized intrusive having difficulty with linear conversations has not responded to olanzapine. She is up to 40 mg reportedly patient has been taking medication we have discussed in team a trial of haloperidol and if not tolerated or beneficial will resume Risperdal and hopefully eventually Invega sustained injection. 10/08: linear and logical in brief interaction today, calm. continue cross-titration, decreasing olanzapine to 5 BID today and adding haldol 5 BID. 10/09: Patient presents drowsy when meeting for 1:1. Patient reports she is having multiple medical concerns ; pt stated, I'm worried that my skin is poisonous because it feels funny. I couldn't sleep last night because I think my brain is bleeding. I'm also still worried about the bugs being inside of me . pt denies any pain. Pt reports she is not taking the Glucophage because it smells funny . DC Zyprexa after tonights dose. 10/10: cont haldol needs much support remains renettajl thought she is being poisoned 10/11: Pt presents guarded today; pt stated, I'm not worried about the brain bleed but last night I felt there were bugs inside of my body . Patient reports she feels this medications is better than risperidal . denies SI/HI/VH/AH. Continue current tx plan. 10/12: infestation delusions continue. currently taking haldol 5 BID; T/C raising dose in several days if no further gains develop. 10/13: somnolent. no change in presentation. continue current mgmt. 10/13: somnolent. no paranoid delusions expressed. continue current mgmt. 10/15: Patient continues delusional and paranoid. Keeping to self. Observed reading book in room. Patient stated, I feel alright. Sometimes I feel like my brain is bleeding. I also feel like there is something stuck in my blood or stomach, like bugs. Like something is sucking my blood. Maybe we should get a CAT scan. Patient reports she continues to not regularly take the metformin d/t it tasting funny and not knowing if it's the right med . pt denies SI/HI/VH/AH. 10/16: Patient continues delusional and paranoid. Keeping to self. Observed reading book in room. Patient stated, I feel good. Things are okay. I haven't been having the sensation in my stomach anymore. I wouldn't mind getting a CAT scan just in case something is stuck in my blood . Continue current tx plan. 10/17: Attending groups, observed reading and coloring. Patient stated, I feel good. I had a good visit with my mom. I don't know if there are bugs inside of me or not but I'm trying to not think about it . Patient discussed how she felt her court hearing was not just because my division leader told me not to talk . denies SI/HI/VH/AH. Call out to patient's parents to determine if patient is allowed to return home. 10/18: Attending groups, observed reading and coloring. keeping to self. Patient reports she is doing okay ; hoping to return home soon. Guarded today. Superficial in conversation. Left VM for patient's father, Ervin Burgos, waiting for call back. Start: Haldol dec 100mg IM Q28 days Changed: Haldol liquid 5mg PO BID to 10mg PO bedtime Cogentin 0.5mg PO BID to 0.5mg PO bedtime 10/19 more withdrawn to room slowed thinking 10/20 seemed a bit more engaged today CTP 10/21/23 more engaged 1:1 , still isolating CTP 10/22: somnolent, no delusional material offered. continue current mgmt. Reason for continued inpatient stay Substantial Risk for: inability to function and rapid decompensation Time Spent With Patient Time: Total time managing care of this patient today ____ minutes.
[2023-10-22 17:25] LABS: Glucose, Whole Blood 173 mg/dL (60-115)
[2023-10-22 21:00] VITALS: BP 140/63; PULSE 97; RESP 18; TEMP 36.1; O2SAT 96
[2023-10-22] MEDS: Benztropine Mesylate 0.5 MG TABLET PO (21:12)
[2023-10-22] MEDS: Miconazole 2 % Extra Thick Cr 56.7 Gm Tube 1 APPL TOPICAL (21:13)
[2023-10-22] MEDS: Haloperidol Lactate Oral Conc 10 MG/5 ML ORAL.CONC PO (21:13)
[2023-10-23 08:28] VITALS: BP 103/55; PULSE 76; RESP 18; TEMP 36.5; O2SAT 96
[2023-10-23] MEDS: Propranolol HCL 10 MG TABLET PO ×2 (08:29→20:37)
[2023-10-23] MEDS: metFORMIN HCl 1,000 MG TABLET 1000 MG PO ×2 (08:29→20:37)
[2023-10-23 09:03] LABS: Glucose, Whole Blood 120 mg/dL (60-115)
--- NOTE | 2023-10-23 09:23 | HO.PSYCHPN ---
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 elaborate, pt stated, I'm seeing too many things to mention . When discussing her weekend patient would stop mid-sentence and state, I'm sharing too much information. I think people are talking and spreading rumors about me again . Patient did have good insight into her presentation and stated, I think I was better on the risperidal . Zyprexa was changed to Zydis; d/t possible cheeking. dose increased to Zyprexa 30mg PO bedtime. 10/01: Patient continues to presents paranoid, delusional; thought blocking. Observed responding to internal stimuli. Patient denies auditory hallucinations. Per nursing, patient had a verbal outburst last evening d/t believing another patient had on the unit. Patient stated, I had a mattress with bugs in it, so I slept in the sensory room. The bugs are now in me . Patient believes she is allergic to zyprexa ; pt stated this is evidence by my tongue swimming ; T/W did not observe any involuntary movements, will continue to monitor. Zyprexa zydis dose changed to 20mg PO BID. 10/02: Patient continues to presents paranoid and delusional. Observed mumbling to self. Patient denies auditory hallucinations. does not present with thought blocking today; more organized. Showered. Pt stated, my skin and fingers have weird sensations when I touch certain things. I'm worried about the bugs being inside of me. Patient reports pain and itching in her left ear. Hospitalist consult placed. When discussing hallucinations, pt stated, I don't believe in treating visual hallucinations with medications . denies SI/HI/AH. Continue current tx plan. 10/03: Patient continues paranoid and delusional. Observed mumbling to self. Patient denies auditory hallucinations. Patient continues to perseverate on somatic complaints; pt stated, the hospitalist came and saw me but they said nothing is wrong with my ears. He just didn't catch it. I haven't had those bugs come out of me yet so I'm worried about that . During 1:1, RN was administering morning medications, when RN left the room, patient began dry heaving and was observed to vomit up sputum. No other incidents of vomiting occurred after this. 10/04: Patient continues paranoid and delusional. Observed mumbling to self. Patient denies auditory hallucinations. Patient continues to perseverate on somatic complaints; pt stated, I'm still worried about bugs being inside of me . Patient became upset and started yelling at T/W, pt stated, You can't medicate the truth out of me! I know what happened! I know the [facility] staff made a bomb threat to my apartment and I'm here because of their retaliation! . Continue current tx plan. 10/04: Continues psychotic. Will Continue current management and treatment plan. Continue Zyprexa. 10/06: Continue current management and treatment plan. Consider switching back to Risperidone or Invega, or adding typical AP. 10/07/2023 Patient seen psychiatric follow-up. The patient has been more agitated disorganized intrusive having difficulty with linear conversations has not responded to olanzapine. She is up to 40 mg reportedly patient has been taking medication we have discussed in team a trial of haloperidol and if not tolerated or beneficial will resume Risperdal and hopefully eventually Invega sustained injection. 10/08: linear and logical in brief interaction today, calm. continue cross-titration, decreasing olanzapine to 5 BID today and adding haldol 5 BID. 10/09: Patient presents drowsy when meeting for 1:1. Patient reports she is having multiple medical concerns ; pt stated, I'm worried that my skin is poisonous because it feels funny. I couldn't sleep last night because I think my brain is bleeding. I'm also still worried about the bugs being inside of me . pt denies any pain. Pt reports she is not taking the Glucophage because it smells funny . DC Zyprexa after tonights dose. 10/10: cont haldol needs much support remains wuith thought she is being poisoned 10/11: Pt presents guarded today; pt stated, I'm not worried about the brain bleed but last night I felt there were bugs inside of my body . Patient reports she feels this medications is better than risperidal . denies SI/HI/VH/AH. Continue current tx plan. 10/12: infestation delusions continue. currently taking haldol 5 BID; T/C raising dose in several days if no further gains develop. 10/13: somnolent. no change in presentation. continue current mgmt. 10/13: somnolent. no paranoid delusions expressed. continue current mgmt. 10/15: Patient continues delusional and paranoid. Keeping to self. Observed reading book in room. Patient stated, I feel alright. Sometimes I feel like my brain is bleeding. I also feel like there is something stuck in my blood or stomach, like bugs. Like something is sucking my blood. Maybe we should get a CAT scan. Patient reports she continues to not regularly take the metformin d/t it tasting funny and not knowing if it's the right med . pt denies SI/HI/VH/AH. 10/16: Patient continues delusional and paranoid. Keeping to self. Observed reading book in room. Patient stated, I feel good. Things are okay. I haven't been having the sensation in my stomach anymore. I wouldn't mind getting a CAT scan just in case something is stuck in my blood . Continue current tx plan. 10/17: Attending groups, observed reading and coloring. Patient stated, I feel good. I had a good visit with my mom. I don't know if there are bugs inside of me or not but I'm trying to not think about it . Patient discussed how she felt her court hearing was not just because my web page developer told me not to talk . denies SI/HI/VH/AH. Call out to patient's parents to determine if patient is allowed to return home. 10/18: Attending groups, observed reading and coloring. keeping to self. Patient reports she is doing okay ; hoping to return home soon. Guarded today. Superficial in conversation. Left for patient's father, Ervin Burgos, waiting for call back. Start: Haldol dec 100mg IM Q28 days Changed: Haldol liquid 5mg PO BID to 10mg PO bedtime Cogentin 0.5mg PO BID to 0.5mg PO bedtime 10/19 more withdrawn to room slowed thinking 10/20 seemed a bit more engaged today CTP 10/21/23 more engaged 1:1 , still isolating CTP 10/22: somnolent, no delusional material offered. continue current mgmt. 10/23/23: Observed out in [facility]. attending groups. Pt reports feeling okay today; pt stated, I'm feeling happy because I know I get to leave soon. I feel a lot better. I feel more like myself. My thoughts make more sense. I plan on living with my parents, getting a job and saving up to get my own place again . Pt reports she plans on taking my medications when I leave here . Denies SI/HI/VH/AH. Pt did not express any delusions or paranoia today. Focused on discharge. Continue current tx plan. Waiting for callback from patients father to discuss aftercare planning. Patient educated on: diagnosis, medication risk/benefits and therapeutic strategies Informed Consent: understands Reason for continued inpatient stay Substantial Risk for: med/psych decompensation Time Spent With Patient Time: Total time managing care of this patient today _30___ minutes.
[2023-10-23 19:57] VITALS: BP 131/90; PULSE 100; RESP 20; TEMP 36.8; O2SAT 96
[2023-10-23] MEDS: Haloperidol Lactate Oral Conc 10 MG/5 ML ORAL.CONC PO (20:36)
[2023-10-24 06:00] VITALS: BP 126/74; PULSE 80; RESP 16; TEMP 36.6; O2SAT 96
--- NOTE | 2023-10-24 09:14 | HO.PSYCHPN ---
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 being written about me. If not then I will try to let it go . Risperidal DC'd. Increased Zyprexa to 15mg PO bedtime. Start: Cogentin 0.5mg PO bedtime. 09/28 continue same treatment. , increase Zyprexa to 20 mg p.o. q.h.s. and add p.r.n. Zyprexa for psychosis the patient is grossly psychotic. 09/30: Patient has decompensated; presents paranoid, delusional; thought blocking, T/W had to call patient's name numerous times before she would focus on what was being asked. Observed responding to internal stimuli. Patient denies auditory hallucinations, however reports visual hallucinations at this time; when asked to elaborate, pt stated, I'm seeing too many things to mention . When discussing her weekend patient would stop mid-sentence and state, I'm sharing too much information. I think people are talking and spreading rumors about me again . Patient did have good insight into her presentation and stated, I think I was better on the risperidal . Zyprexa was changed to Zydis; d/t possible cheeking. dose increased to Zyprexa 30mg PO bedtime. 10/01: Patient continues to presents paranoid, delusional; thought blocking. Observed responding to internal stimuli. Patient denies auditory hallucinations. Per nursing, patient had a verbal outburst last evening d/t believing another patient had on the unit. Patient stated, I had a mattress with bugs in it, so I slept in the sensory room. The bugs are now in me . Patient believes she is allergic to zyprexa ; pt stated this is evidence by my tongue swimming ; T/W did not observe any involuntary movements, will continue to monitor. Zyprexa zydis dose changed to 20mg PO BID. 10/02: Patient continues to presents paranoid and delusional. Observed mumbling to self. Patient denies auditory hallucinations. does not present with thought blocking today; more organized. Showered. Pt stated, my skin and fingers have weird sensations when I touch certain things. I'm worried about the bugs being inside of me. Patient reports pain and itching in her left ear. Hospitalist consult placed. When discussing hallucinations, pt stated, I don't believe in treating visual hallucinations with medications . denies SI/HI/AH. Continue current tx plan. 10/03: Patient continues paranoid and delusional. Observed mumbling to self. Patient denies auditory hallucinations. Patient continues to perseverate on somatic complaints; pt stated, the hospitalist came and saw me but they said nothing is wrong with my ears. He just didn't catch it. I haven't had those bugs come out of me yet so I'm worried about that . During 1:1, RN was administering morning medications, when RN left the room, patient began dry heaving and was observed to vomit up sputum. No other incidents of vomiting occurred after this. 10/04: Patient continues paranoid and delusional. Observed mumbling to self. Patient denies auditory hallucinations. Patient continues to perseverate on somatic complaints; pt stated, I'm still worried about bugs being inside of me . Patient became upset and started yelling at T/W, pt stated, You can't medicate the truth out of me! I know what happened! I know [facility] staff made a bomb threat to my apartment and I'm here because of their retaliation! . Continue current tx plan. 10/04: Continues psychotic. Will Continue current management and treatment plan. Continue Zyprexa. 10/06: Continue current management and treatment plan. Consider switching back to Risperidone or Invega, or adding typical AP. 10/07/2023 Patient seen psychiatric follow-up. The patient has been more agitated disorganized intrusive having difficulty with linear conversations has not responded to olanzapine. She is up to 40 mg reportedly patient has been taking medication we have discussed in team a trial of haloperidol and if not tolerated or beneficial will resume Risperdal and hopefully eventually Invega sustained injection. 10/08: linear and logical in brief interaction today, calm. continue cross-titration, decreasing olanzapine to 5 BID today and adding haldol 5 BID. 10/09: Patient presents drowsy when meeting for 1:1. Patient reports she is having multiple medical concerns ; pt stated, I'm worried that my skin is poisonous because it feels funny. I couldn't sleep last night because I think my brain is bleeding. I'm also still worried about the bugs being inside of me . pt denies any pain. Pt reports she is not taking the Glucophage because it smells funny . DC Zyprexa after tonights dose. 10/10: cont haldol needs much support remains wuith thought she is being poisoned 10/11: Pt presents guarded today; pt stated, I'm not worried about the brain bleed but last night I felt there were bugs inside of my body . Patient reports she feels this medications is better than risperidal . denies SI/HI/VH/AH. Continue current tx plan. 10/12: infestation delusions continue. currently taking haldol 5 BID; T/C raising dose in several days if no further gains develop. 10/13: somnolent. no change in presentation. continue current mgmt. 10/13: somnolent. no paranoid delusions expressed. continue current mgmt. 10/15: Patient continues delusional and paranoid. Keeping to self. Observed reading book in room. Patient stated, I feel alright. Sometimes I feel like my brain is bleeding. I also feel like there is something stuck in my blood or stomach, like bugs. Like something is sucking my blood. Maybe we should get a CAT scan. Patient reports she continues to not regularly take the metformin d/t it tasting funny and not knowing if it's the right med . pt denies SI/HI/VH/AH. 10/16: Patient continues delusional and paranoid. Keeping to self. Observed reading book in room. Patient stated, I feel good. Things are okay. I haven't been having the sensation in my stomach anymore. I wouldn't mind getting a CAT scan just in case something is stuck in my blood . Continue current tx plan. 10/17: Attending groups, observed reading and coloring. Patient stated, I feel good. I had a good visit with my mom. I don't know if there are bugs inside of me or not but I'm trying to not think about it . Patient discussed how she felt her court hearing was not just because my staffing program manager told me not to talk . denies SI/HI/VH/AH. Call out to patient's parents to determine if patient is allowed to return home. 10/18: Attending groups, observed reading and coloring. keeping to self. Patient reports she is doing okay ; hoping to return home soon. Guarded today. Superficial in conversation. Left for patient's father, Ervin Burgos, waiting for call back. Start: Haldol dec 100mg IM Q28 days Changed: Haldol liquid 5mg PO BID to 10mg PO bedtime Cogentin 0.5mg PO BID to 0.5mg PO bedtime 10/19 more withdrawn to room slowed thinking 10/20 seemed a bit more engaged today CTP 10/21/23 more engaged 1:1 , still isolating CTP 10/22: somnolent, no delusional material offered. continue current mgmt. 10/23/23: Observed out in [facility]. attending groups. Pt reports feeling okay today; pt stated, I'm feeling happy because I know I get to leave soon. I feel a lot better. I feel more like myself. My thoughts make more sense. I plan on living with my parents, getting a job and saving up to get my own place again . Pt reports she plans on taking my medications when I leave here . Denies SI/HI/VH/AH. Pt did not express any delusions or paranoia today. Focused on discharge. Continue current tx plan. Waiting for callback from patients father to discuss aftercare planning. 10/24: Observed out in [facility]. attending groups. Organized. Pt reports feeling fine ; pt stated, I'm not anxious or depressed. I'm just hoping to go home soon . Discussed importance of medication compliance. Pt reports she plans on continuing to take medications once discharged. denies SI/HI/VH/AH. Spoke with Sally's parents on the phone with her permission. Discussed medications and importance of medication compliance. Parents stated that Sally is allowed to stay with them as long as she takes her medications and follows up with outpatient providers; they reported the idea of obtaining a [facility] order. They plan on contacting unit addiction social worker to discuss further discharge planning; automotive worker foreman aware. Patient educated on: diagnosis, medication risk/benefits and therapeutic strategies Guardian/Caregiver educated on: diagnosis and medication risk/benefits Informed Consent: understands Reason for continued inpatient stay Substantial Risk for: med/psych decompensation Time Spent With Patient Time: Total time managing care of this patient today _45___ minutes.
[2023-10-24] MEDS: Propranolol HCL 10 MG TABLET PO ×2 (09:44→21:51)
[2023-10-24] MEDS: metFORMIN HCl 1,000 MG TABLET 1000 MG PO ×2 (09:45→21:51)
[2023-10-24 09:50] VITALS: BP 125/58; PULSE 81
[2023-10-24 20:30] VITALS: BP 114/55; PULSE 89; RESP 14; TEMP 36.3; O2SAT 95
[2023-10-24] MEDS: traZODone HCL 50 MG TABLET PO (21:51)
[2023-10-25 06:00] VITALS: BP 128/73; PULSE 77; RESP 18; TEMP 36.6; O2SAT 96
[2023-10-25] MEDS: Propranolol HCL 10 MG TABLET PO ×2 (09:01→20:41)
[2023-10-25] MEDS: metFORMIN HCl 1,000 MG TABLET 1000 MG PO ×2 (09:01→20:40)
--- NOTE | 2023-10-25 09:28 | HO.PSYCHPN ---
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 15mg PO bedtime. Start: Cogentin 0.5mg PO bedtime. 09/28 continue same treatment. , increase Zyprexa to 20 mg p.o. q.h.s. and add p.r.n. Zyprexa for psychosis the patient is grossly psychotic. 09/30: Patient has decompensated; presents paranoid, delusional; thought blocking, T/W had to call patient's name numerous times before she would focus on what was being asked. Observed responding to internal stimuli. Patient denies auditory hallucinations, however reports visual hallucinations at this time; when asked to elaborate, pt stated, I'm seeing too many things to mention . When discussing her weekend patient would stop mid-sentence and state, I'm sharing too much information. I think people are talking and spreading rumors about me again . Patient did have good insight into her presentation and stated, I think I was better on the risperidal . Zyprexa was changed to Zydis; d/t possible cheeking. dose increased to Zyprexa 30mg PO bedtime. 10/01: Patient continues to presents paranoid, delusional; thought blocking. Observed responding to internal stimuli. Patient denies auditory hallucinations. Per nursing, patient had a verbal outburst last evening d/t believing another patient had on the unit. Patient stated, I had a mattress with bugs in it, so I slept in the sensory room. The bugs are now in me . Patient believes she is allergic to zyprexa ; pt stated this is evidence by my tongue swimming ; T/W did not observe any involuntary movements, will continue to monitor. Zyprexa zydis dose changed to 20mg PO BID. 10/02: Patient continues to presents paranoid and delusional. Observed mumbling to self. Patient denies auditory hallucinations. does not present with thought blocking today; more organized. Showered. Pt stated, my skin and fingers have weird sensations when I touch certain things. I'm worried about the bugs being inside of me. Patient reports pain and itching in her left ear. Hospitalist consult placed. When discussing hallucinations, pt stated, I don't believe in treating visual hallucinations with medications . denies SI/HI/AH. Continue current tx plan. 10/03: Patient continues paranoid and delusional. Observed mumbling to self. Patient denies auditory hallucinations. Patient continues to perseverate on somatic complaints; pt stated, the hospitalist came and saw me but they said nothing is wrong with my ears. He just didn't catch it. I haven't had those bugs come out of me yet so I'm worried about that . During 1:1, RN was administering morning medications, when RN left the room, patient began dry heaving and was observed to vomit up sputum. No other incidents of vomiting occurred after this. 10/04: Patient continues paranoid and delusional. Observed mumbling to self. Patient denies auditory hallucinations. Patient continues to perseverate on somatic complaints; pt stated, I'm still worried about bugs being inside of me . Patient became upset and started yelling at T/W, pt stated, You can't medicate the truth out of me! I know what happened! I know the [facility] staff made a bomb threat to my apartment and I'm here because of their retaliation! . Continue current tx plan. 10/04: Continues psychotic. Will Continue current management and treatment plan. Continue Zyprexa. 10/06: Continue current management and treatment plan. Consider switching back to Risperidone or Invega, or adding typical AP. 10/07/2023 Patient seen psychiatric follow-up. The patient has been more agitated disorganized intrusive having difficulty with linear conversations has not responded to olanzapine. She is up to 40 mg reportedly patient has been taking medication we have discussed in team a trial of haloperidol and if not tolerated or beneficial will resume Risperdal and hopefully eventually Invega sustained injection. 10/08: linear and logical in brief interaction today, calm. continue cross-titration, decreasing olanzapine to 5 BID today and adding haldol 5 BID. 10/09: Patient presents drowsy when meeting for 1:1. Patient reports she is having multiple medical concerns ; pt stated, I'm worried that my skin is poisonous because it feels funny. I couldn't sleep last night because I think my brain is bleeding. I'm also still worried about the bugs being inside of me . pt denies any pain. Pt reports she is not taking the Glucophage because it smells funny . DC Zyprexa after tonights dose. 10/10: cont haldol needs much support remains jero thought she is being poisoned 10/11: Pt presents guarded today; pt stated, I'm not worried about the brain bleed but last night I felt there were bugs inside of my body . Patient reports she feels this medications is better than risperidal . denies SI/HI/VH/AH. Continue current tx plan. 10/12: infestation delusions continue. currently taking haldol 5 BID; T/C raising dose in several days if no further gains develop. 10/13: somnolent. no change in presentation. continue current mgmt. 10/13: somnolent. no paranoid delusions expressed. continue current mgmt. 10/15: Patient continues delusional and paranoid. Keeping to self. Observed reading book in room. Patient stated, I feel alright. Sometimes I feel like my brain is bleeding. I also feel like there is something stuck in my blood or stomach, like bugs. Like something is sucking my blood. Maybe we should get a CAT scan. Patient reports she continues to not regularly take the metformin d/t it tasting funny and not knowing if it's the right med . pt denies SI/HI/VH/AH. 10/16: Patient continues delusional and paranoid. Keeping to self. Observed reading book in room. Patient stated, I feel good. Things are okay. I haven't been having the sensation in my stomach anymore. I wouldn't mind getting a CAT scan just in case something is stuck in my blood . Continue current tx plan. 10/17: Attending groups, observed reading and coloring. Patient stated, I feel good. I had a good visit with my mom. I don't know if there are bugs inside of me or not but I'm trying to not think about it . Patient discussed how she felt her court hearing was not just because my final operations technician told me not to talk . denies SI/HI/VH/AH. Call out to patient's parents to determine if patient is allowed to return home. 10/18: Attending groups, observed reading and coloring. keeping to self. Patient reports she is doing okay ; hoping to return home soon. Guarded today. Superficial in conversation. Left for patient's father, Ervin Burgos, waiting for call back. Start: Haldol dec 100mg IM Q28 days Changed: Haldol liquid 5mg PO BID to 10mg PO bedtime Cogentin 0.5mg PO BID to 0.5mg PO bedtime 10/19 more withdrawn to room slowed thinking 10/20 seemed a bit more engaged today CTP 10/21/23 more engaged 1:1 , still isolating CTP 10/22: somnolent, no delusional material offered. continue current mgmt. 10/23/23: Observed out in [facility]. attending groups. Pt reports feeling okay today; pt stated, I'm feeling happy because I know I get to leave soon. I feel a lot better. I feel more like myself. My thoughts make more sense. I plan on living with my parents, getting a job and saving up to get my own place again . Pt reports she plans on taking my medications when I leave here . Denies SI/HI/VH/AH. Pt did not express any delusions or paranoia today. Focused on discharge. Continue current tx plan. Waiting for callback from patients father to discuss aftercare planning. 10/24: Observed out in [facility]. attending groups. Organized. Pt reports feeling fine ; pt stated, I'm not anxious or depressed. I'm just hoping to go home soon . Discussed importance of medication compliance. Pt reports she plans on continuing to take medications once discharged. denies SI/HI/VH/AH. Spoke with Sally's parents on the phone with her permission. Discussed medications and importance of medication compliance. Parents stated that Sally is allowed to stay with them as long as she takes her medications and follows up with outpatient providers; they reported the idea of obtaining a [facility] order. They plan on contacting unit psychiatric social worker supervisor to discuss further discharge planning; machine lay out worker aware. 10/25: Pt reports doing well today; she denies any side effects from medications. We discussed her current medications, pt stated, I didn't want my parents to tell you that I'm thinking about going back to [facility]. The Haldol is for delusions that I don't have. I never had delusions or psychosis . Pt began explaining why everything she believes is facts and not delusions. Pt stated, I did hear lobotomy on the over head. I also know they were making a movie about me and I think they said lobotomy over head to include that in the movie. Also there was a snake in my body but it's not anymore . Pt reports she is no longer focusing on these but believes that are true. Pt reports she plans on taking her medications when she is discharged and states she will talk to my outpatient provider about coming off Haldol and going back on Geodon . Continue current tx plan. Patient educated on: diagnosis and medication risk/benefits Informed Consent: understands Reason for continued inpatient stay Substantial Risk for: med/psych decompensation Time Spent With Patient Time: Total time managing care of this patient today _30___ minutes.
[2023-10-25 20:36] VITALS: BP 136/72; PULSE 87; RESP 18; TEMP 36.8; O2SAT 98
[2023-10-26 06:00] VITALS: BP 135/67; PULSE 88; TEMP 36.5; O2SAT 96
[2023-10-26] MEDS: metFORMIN HCl 1,000 MG TABLET 1000 MG PO (09:50)
[2023-10-26] MEDS: Propranolol HCL 10 MG TABLET PO (09:50)
--- NOTE | 2023-10-26 12:29 | HO.PSYCHPN ---
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 d/t possible cheeking. dose increased to Zyprexa 30mg PO bedtime. 10/01: Patient continues to presents paranoid, delusional; thought blocking. Observed responding to internal stimuli. Patient denies auditory hallucinations. Per nursing, patient had a verbal outburst last evening d/t believing another patient had on the unit. Patient stated, I had a mattress with bugs in it, so I slept in the sensory room. The bugs are now in me . Patient believes she is allergic to zyprexa ; pt stated this is evidence by my tongue swimming ; T/W did not observe any involuntary movements, will continue to monitor. Zyprexa zydis dose changed to 20mg PO BID. 10/02: Patient continues to presents paranoid and delusional. Observed mumbling to self. Patient denies auditory hallucinations. does not present with thought blocking today; more organized. Showered. Pt stated, my skin and fingers have weird sensations when I touch certain things. I'm worried about the bugs being inside of me. Patient reports pain and itching in her left ear. Hospitalist consult placed. When discussing hallucinations, pt stated, I don't believe in treating visual hallucinations with medications . denies SI/HI/AH. Continue current tx plan. 10/03: Patient continues paranoid and delusional. Observed mumbling to self. Patient denies auditory hallucinations. Patient continues to perseverate on somatic complaints; pt stated, the hospitalist came and saw me but they said nothing is wrong with my ears. He just didn't catch it. I haven't had those bugs come out of me yet so I'm worried about that . During 1:1, RN was administering morning medications, when RN left the room, patient began dry heaving and was observed to vomit up sputum. No other incidents of vomiting occurred after this. 10/04: Patient continues paranoid and delusional. Observed mumbling to self. Patient denies auditory hallucinations. Patient continues to perseverate on somatic complaints; pt stated, I'm still worried about bugs being inside of me . Patient became upset and started yelling at T/W, pt stated, You can't medicate the truth out of me! I know what happened! I know the [facility] staff made a bomb threat to my apartment and I'm here because of their retaliation! . Continue current tx plan. 10/04: Continues psychotic. Will Continue current management and treatment plan. Continue Zyprexa. 10/06: Continue current management and treatment plan. Consider switching back to Risperidone or Invega, or adding typical AP. 10/07/2023 Patient seen psychiatric follow-up. The patient has been more agitated disorganized intrusive having difficulty with linear conversations has not responded to olanzapine. She is up to 40 mg reportedly patient has been taking medication we have discussed in team a trial of haloperidol and if not tolerated or beneficial will resume Risperdal and hopefully eventually Invega sustained injection. 10/08: linear and logical in brief interaction today, calm. continue cross-titration, decreasing olanzapine to 5 BID today and adding haldol 5 BID. 10/09: Patient presents drowsy when meeting for 1:1. Patient reports she is having multiple medical concerns ; pt stated, I'm worried that my skin is poisonous because it feels funny. I couldn't sleep last night because I think my brain is bleeding. I'm also still worried about the bugs being inside of me . pt denies any pain. Pt reports she is not taking the Glucophage because it smells funny . DC Zyprexa after tonights dose. 10/10: cont haldol needs much support remains wuith thought she is being poisoned 10/11: Pt presents guarded today; pt stated, I'm not worried about the brain bleed but last night I felt there were bugs inside of my body . Patient reports she feels this medications is better than risperidal . denies SI/HI/VH/AH. Continue current tx plan. 10/12: infestation delusions continue. currently taking haldol 5 BID; T/C raising dose in several days if no further gains develop. 10/13: somnolent. no change in presentation. continue current mgmt. 10/13: somnolent. no paranoid delusions expressed. continue current mgmt. 10/15: Patient continues delusional and paranoid. Keeping to self. Observed reading book in room. Patient stated, I feel alright. Sometimes I feel like my brain is bleeding. I also feel like there is something stuck in my blood or stomach, like bugs. Like something is sucking my blood. Maybe we should get a CAT scan. Patient reports she continues to not regularly take the metformin d/t it tasting funny and not knowing if it's the right med . pt denies SI/HI/VH/AH. 10/16: Patient continues delusional and paranoid. Keeping to self. Observed reading book in room. Patient stated, I feel good. Things are okay. I haven't been having the sensation in my stomach anymore. I wouldn't mind getting a CAT scan just in case something is stuck in my blood . Continue current tx plan. 10/17: Attending groups, observed reading and coloring. Patient stated, I feel good. I had a good visit with my mom. I don't know if there are bugs inside of me or not but I'm trying to not think about it . Patient discussed how she felt her court hearing was not just because my military lawyer told me not to talk . denies SI/HI/VH/AH. Call out to patient's parents to determine if patient is allowed to return home. 10/18: Attending groups, observed reading and coloring. keeping to self. Patient reports she is doing okay ; hoping to return home soon. Guarded today. Superficial in conversation. Left VM for patient's father, Ervin Burgos, waiting for call back. Start: Haldol dec 100mg IM Q28 days Changed: Haldol liquid 5mg PO BID to 10mg PO bedtime Cogentin 0.5mg PO BID to 0.5mg PO bedtime 10/19 more withdrawn to room slowed thinking 10/20 seemed a bit more engaged today CTP 10/21/23 more engaged 1:1 , still isolating CTP 10/22: somnolent, no delusional material offered. continue current mgmt. 10/23/23: Observed out in [facility]. attending groups. Pt reports feeling okay today; pt stated, I'm feeling happy because I know I get to leave soon. I feel a lot better. I feel more like myself. My thoughts make more sense. I plan on living with my parents, getting a job and saving up to get my own place again . Pt reports she plans on taking my medications when I leave here . Denies SI/HI/VH/AH. Pt did not express any delusions or paranoia today. Focused on discharge. Continue current tx plan. Waiting for callback from patients father to discuss aftercare planning. 10/24: Observed out in [facility]. attending groups. Organized. Pt reports feeling fine ; pt stated, I'm not anxious or depressed. I'm just hoping to go home soon . Discussed importance of medication compliance. Pt reports she plans on continuing to take medications once discharged. denies SI/HI/VH/AH. Spoke with Sally's parents on the phone with her permission. Discussed medications and importance of medication compliance. Parents stated that Sally is allowed to stay with them as long as she takes her medications and follows up with outpatient providers; they reported the idea of obtaining a [facility] order. They plan on contacting unit social studies teacher to discuss further discharge planning; heat treat worker aware. 10/25: Pt reports doing well today; she denies any side effects from medications. We discussed her current medications, pt stated, I didn't want my parents to tell you that I'm thinking about going back to [facility]. The Haldol is for delusions that I don't have. I never had delusions or psychosis . Pt began explaining why everything she believes is facts and not delusions. Pt stated, I did hear lobotomy on the over head. I also know they were making a movie about me and I think they said lobotomy over head to include that in the movie. Also there was a snake in my body but it's not anymore . Pt reports she is no longer focusing on these but believes that are true. Pt reports she plans on taking her medications when she is discharged and states she will talk to my outpatient provider about coming off Haldol and going back on Geodon . Continue current tx plan. 10/26/2023: No changes to current treatment plan Reason for continued inpatient stay Substantial Risk for: rapid decompensation Time Spent With Patient Time: Total time managing care of this patient today ____ minutes.
[2023-10-26 19:56] VITALS: BP 145/67; PULSE 98; RESP 98; TEMP 36.5; O2SAT 97
[2023-10-27 06:00] VITALS: BP 102/49; PULSE 88; RESP 16; TEMP 36.3; O2SAT 97
[2023-10-27 11:06] LABS: Creatinine Clr Calc Pharmacy 131.5; Estimated Glomerular Filt Rate > 60
--- NOTE | 2023-10-27 11:28 | HO.PSYCHPN ---
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 the risperidal . Zyprexa was changed to Zydis; d/t possible cheeking. dose increased to Zyprexa 30mg PO bedtime. 10/01: Patient continues to presents paranoid, delusional; thought blocking. Observed responding to internal stimuli. Patient denies auditory hallucinations. Per nursing, patient had a verbal outburst last evening d/t believing another patient had on the unit. Patient stated, I had a mattress with bugs in it, so I slept in the sensory room. The bugs are now in me . Patient believes she is allergic to zyprexa ; pt stated this is evidence by my tongue swimming ; T/W did not observe any involuntary movements, will continue to monitor. Zyprexa zydis dose changed to 20mg PO BID. 10/02: Patient continues to presents paranoid and delusional. Observed mumbling to self. Patient denies auditory hallucinations. does not present with thought blocking today; more organized. Showered. Pt stated, my skin and fingers have weird sensations when I touch certain things. I'm worried about the bugs being inside of me. Patient reports pain and itching in her left ear. Hospitalist consult placed. When discussing hallucinations, pt stated, I don't believe in treating visual hallucinations with medications . denies SI/HI/AH. Continue current tx plan. 10/03: Patient continues paranoid and delusional. Observed mumbling to self. Patient denies auditory hallucinations. Patient continues to perseverate on somatic complaints; pt stated, the hospitalist came and saw me but they said nothing is wrong with my ears. He just didn't catch it. I haven't had those bugs come out of me yet so I'm worried about that . During 1:1, RN was administering morning medications, when RN left the room, patient began dry heaving and was observed to vomit up sputum. No other incidents of vomiting occurred after this. 10/04: Patient continues paranoid and delusional. Observed mumbling to self. Patient denies auditory hallucinations. Patient continues to perseverate on somatic complaints; pt stated, I'm still worried about bugs being inside of me . Patient became upset and started yelling at T/W, pt stated, You can't medicate the truth out of me! I know what happened! I know the [facility] staff made a bomb threat to my apartment and I'm here because of their retaliation! . Continue current tx plan. 10/04: Continues psychotic. Will Continue current management and treatment plan. Continue Zyprexa. 10/06: Continue current management and treatment plan. Consider switching back to Risperidone or Invega, or adding typical AP. 10/07/2023 Patient seen psychiatric follow-up. The patient has been more agitated disorganized intrusive having difficulty with linear conversations has not responded to olanzapine. She is up to 40 mg reportedly patient has been taking medication we have discussed in team a trial of haloperidol and if not tolerated or beneficial will resume Risperdal and hopefully eventually Invega sustained injection. 10/08: linear and logical in brief interaction today, calm. continue cross-titration, decreasing olanzapine to 5 BID today and adding haldol 5 BID. 10/09: Patient presents drowsy when meeting for 1:1. Patient reports she is having multiple medical concerns ; pt stated, I'm worried that my skin is poisonous because it feels funny. I couldn't sleep last night because I think my brain is bleeding. I'm also still worried about the bugs being inside of me . pt denies any pain. Pt reports she is not taking the Glucophage because it smells funny . DC Zyprexa after tonights dose. 10/10: cont haldol needs much support remains wuith thought she is being poisoned 10/11: Pt presents guarded today; pt stated, I'm not worried about the brain bleed but last night I felt there were bugs inside of my body . Patient reports she feels this medications is better than risperidal . denies SI/HI/VH/AH. Continue current tx plan. 10/12: infestation delusions continue. currently taking haldol 5 BID; T/C raising dose in several days if no further gains develop. 10/13: somnolent. no change in presentation. continue current mgmt. 10/13: somnolent. no paranoid delusions expressed. continue current mgmt. 10/15: Patient continues delusional and paranoid. Keeping to self. Observed reading book in room. Patient stated, I feel alright. Sometimes I feel like my brain is bleeding. I also feel like there is something stuck in my blood or stomach, like bugs. Like something is sucking my blood. Maybe we should get a CAT scan. Patient reports she continues to not regularly take the metformin d/t it tasting funny and not knowing if it's the right med . pt denies SI/HI/VH/AH. 10/16: Patient continues delusional and paranoid. Keeping to self. Observed reading book in room. Patient stated, I feel good. Things are okay. I haven't been having the sensation in my stomach anymore. I wouldn't mind getting a CAT scan just in case something is stuck in my blood . Continue current tx plan. 10/17: Attending groups, observed reading and coloring. Patient stated, I feel good. I had a good visit with my mom. I don't know if there are bugs inside of me or not but I'm trying to not think about it . Patient discussed how she felt her court hearing was not just because my molecular biology scientist told me not to talk . denies SI/HI/VH/AH. Call out to patient's parents to determine if patient is allowed to return home. 10/18: Attending groups, observed reading and coloring. keeping to self. Patient reports she is doing okay ; hoping to return home soon. Guarded today. Superficial in conversation. Left VM for patient's father, Ervin Burgos, waiting for call back. Start: Haldol dec 100mg IM Q28 days Changed: Haldol liquid 5mg PO BID to 10mg PO bedtime Cogentin 0.5mg PO BID to 0.5mg PO bedtime 10/19 more withdrawn to room slowed thinking 10/20 seemed a bit more engaged today CTP 10/21/23 more engaged 1:1 , still isolating CTP 10/22: somnolent, no delusional material offered. continue current mgmt. 10/23/23: Observed out in [facility]. attending groups. Pt reports feeling okay today; pt stated, I'm feeling happy because I know I get to leave soon. I feel a lot better. I feel more like myself. My thoughts make more sense. I plan on living with my parents, getting a job and saving up to get my own place again . Pt reports she plans on taking my medications when I leave here . Denies SI/HI/VH/AH. Pt did not express any delusions or paranoia today. Focused on discharge. Continue current tx plan. Waiting for callback from patients father to discuss aftercare planning. 10/24: Observed out in [facility]. attending groups. Organized. Pt reports feeling fine ; pt stated, I'm not anxious or depressed. I'm just hoping to go home soon . Discussed importance of medication compliance. Pt reports she plans on continuing to take medications once discharged. denies SI/HI/VH/AH. Spoke with Sally's parents on the phone with her permission. Discussed medications and importance of medication compliance. Parents stated that Sally is allowed to stay with them as long as she takes her medications and follows up with outpatient providers; they reported the idea of obtaining a [facility] order. They plan on contacting unit social science teacher to discuss further discharge planning; tip out worker aware. 10/25: Pt reports doing well today; she denies any side effects from medications. We discussed her current medications, pt stated, I didn't want my parents to tell you that I'm thinking about going back to [facility]. The Haldol is for delusions that I don't have. I never had delusions or psychosis . Pt began explaining why everything she believes is facts and not delusions. Pt stated, I did hear lobotomy on the over head. I also know they were making a movie about me and I think they said lobotomy over head to include that in the movie. Also there was a snake in my body but it's not anymore . Pt reports she is no longer focusing on these but believes that are true. Pt reports she plans on taking her medications when she is discharged and states she will talk to my outpatient provider about coming off Haldol and going back on Geodon . Continue current tx plan. 10/26/2023: No changes to current treatment plan 10/27/2023: No changes to current plan Reason for continued inpatient stay Substantial Risk for: rapid decompensation Time Spent With Patient Time: Total time managing care of this patient today ____ minutes.
[2023-10-27 20:07] VITALS: BP 119/81; PULSE 92; RESP 16; TEMP 37; O2SAT 96
[2023-10-28 07:30] VITALS: BP 99/57; PULSE 76; RESP 16; TEMP 36.3; O2SAT 97
--- NOTE | 2023-10-28 09:18 | HO.PSYCHPN ---
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 visual hallucinations at this time; when asked to elaborate, pt stated, I'm seeing too many things to mention . When discussing her weekend patient would stop mid-sentence and state, I'm sharing too much information. I think people are talking and spreading rumors about me again . Patient did have good insight into her presentation and stated, I think I was better on the risperidal . Zyprexa was changed to Zydis; d/t possible cheeking. dose increased to Zyprexa 30mg PO bedtime. 10/01: Patient continues to presents paranoid, delusional; thought blocking. Observed responding to internal stimuli. Patient denies auditory hallucinations. Per nursing, patient had a verbal outburst last evening d/t believing another patient had on the unit. Patient stated, I had a mattress with bugs in it, so I slept in the sensory room. The bugs are now in me . Patient believes she is allergic to zyprexa ; pt stated this is evidence by my tongue swimming ; T/W did not observe any involuntary movements, will continue to monitor. Zyprexa zydis dose changed to 20mg PO BID. 10/02: Patient continues to presents paranoid and delusional. Observed mumbling to self. Patient denies auditory hallucinations. does not present with thought blocking today; more organized. Showered. Pt stated, my skin and fingers have weird sensations when I touch certain things. I'm worried about the bugs being inside of me. Patient reports pain and itching in her left ear. Hospitalist consult placed. When discussing hallucinations, pt stated, I don't believe in treating visual hallucinations with medications . denies SI/HI/AH. Continue current tx plan. 10/03: Patient continues paranoid and delusional. Observed mumbling to self. Patient denies auditory hallucinations. Patient continues to perseverate on somatic complaints; pt stated, the hospitalist came and saw me but they said nothing is wrong with my ears. He just didn't catch it. I haven't had those bugs come out of me yet so I'm worried about that . During 1:1, RN was administering morning medications, when RN left the room, patient began dry heaving and was observed to vomit up sputum. No other incidents of vomiting occurred after this. 10/04: Patient continues paranoid and delusional. Observed mumbling to self. Patient denies auditory hallucinations. Patient continues to perseverate on somatic complaints; pt stated, I'm still worried about bugs being inside of me . Patient became upset and started yelling at T/W, pt stated, You can't medicate the truth out of me! I know what happened! I know the [facility] staff made a bomb threat to my apartment and I'm here because of their retaliation! . Continue current tx plan. 10/04: Continues psychotic. Will Continue current management and treatment plan. Continue Zyprexa. 10/06: Continue current management and treatment plan. Consider switching back to Risperidone or Invega, or adding typical AP. 10/07/2023 Patient seen psychiatric follow-up. The patient has been more agitated disorganized intrusive having difficulty with linear conversations has not responded to olanzapine. She is up to 40 mg reportedly patient has been taking medication we have discussed in team a trial of haloperidol and if not tolerated or beneficial will resume Risperdal and hopefully eventually Invega sustained injection. 10/08: linear and logical in brief interaction today, calm. continue cross-titration, decreasing olanzapine to 5 BID today and adding haldol 5 BID. 10/09: Patient presents drowsy when meeting for 1:1. Patient reports she is having multiple medical concerns ; pt stated, I'm worried that my skin is poisonous because it feels funny. I couldn't sleep last night because I think my brain is bleeding. I'm also still worried about the bugs being inside of me . pt denies any pain. Pt reports she is not taking the Glucophage because it smells funny . DC Zyprexa after tonights dose. 10/10: cont haldol needs much support remains wuith thought she is being poisoned 10/11: Pt presents guarded today; pt stated, I'm not worried about the brain bleed but last night I felt there were bugs inside of my body . Patient reports she feels this medications is better than risperidal . denies SI/HI/VH/AH. Continue current tx plan. 10/12: infestation delusions continue. currently taking haldol 5 BID; T/C raising dose in several days if no further gains develop. 10/13: somnolent. no change in presentation. continue current mgmt. 10/13: somnolent. no paranoid delusions expressed. continue current mgmt. 10/15: Patient continues delusional and paranoid. Keeping to self. Observed reading book in room. Patient stated, I feel alright. Sometimes I feel like my brain is bleeding. I also feel like there is something stuck in my blood or stomach, like bugs. Like something is sucking my blood. Maybe we should get a CAT scan. Patient reports she continues to not regularly take the metformin d/t it tasting funny and not knowing if it's the right med . pt denies SI/HI/VH/AH. 10/16: Patient continues delusional and paranoid. Keeping to self. Observed reading book in room. Patient stated, I feel good. Things are okay. I haven't been having the sensation in my stomach anymore. I wouldn't mind getting a CAT scan just in case something is stuck in my blood . Continue current tx plan. 10/17: Attending groups, observed reading and coloring. Patient stated, I feel good. I had a good visit with my mom. I don't know if there are bugs inside of me or not but I'm trying to not think about it . Patient discussed how she felt her court hearing was not just because my continuous loft operator told me not to talk . denies SI/HI/VH/AH. Call out to patient's parents to determine if patient is allowed to return home. 10/18: Attending groups, observed reading and coloring. keeping to self. Patient reports she is doing okay ; hoping to return home soon. Guarded today. Superficial in conversation. Left for patient's father, Ervin Burogs, waiting for call back. Start: Haldol dec 100mg IM Q28 days Changed: Haldol liquid 5mg PO BID to 10mg PO bedtime Cogentin 0.5mg PO BID to 0.5mg PO bedtime 10/19 more withdrawn to room slowed thinking 10/20 seemed a bit more engaged today CTP 10/21/23 more engaged 1:1 , still isolating CTP 10/22: somnolent, no delusional material offered. continue current mgmt. 10/23/23: Observed out in [facility]. attending groups. Pt reports feeling okay today; pt stated, I'm feeling happy because I know I get to leave soon. I feel a lot better. I feel more like myself. My thoughts make more sense. I plan on living with my parents, getting a job and saving up to get my own place again . Pt reports she plans on taking my medications when I leave here . Denies SI/HI/VH/AH. Pt did not express any delusions or paranoia today. Focused on discharge. Continue current tx plan. Waiting for callback from patients father to discuss aftercare planning. 10/24: Observed out in [facility]. attending groups. Organized. Pt reports feeling fine ; pt stated, I'm not anxious or depressed. I'm just hoping to go home soon . Discussed importance of medication compliance. Pt reports she plans on continuing to take medications once discharged. denies SI/HI/VH/AH. Spoke with Sally's parents on the phone with her permission. Discussed medications and importance of medication compliance. Parents stated that Sally is allowed to stay with them as long as she takes her medications and follows up with outpatient providers; they reported the idea of obtaining a [facility] order. They plan on contacting unit manager social services to discuss further discharge planning; trail maintenance worker aware. 10/25: Pt reports doing well today; she denies any side effects from medications. We discussed her current medications, pt stated, I didn't want my parents to tell you that I'm thinking about going back to [facility]. The Haldol is for delusions that I don't have. I never had delusions or psychosis . Pt began explaining why everything she believes is facts and not delusions. Pt stated, I did hear lobotomy on the over head. I also know they were making a movie about me and I think they said lobotomy over head to include that in the movie. Also there was a snake in my body but it's not anymore . Pt reports she is no longer focusing on these but believes that are true. Pt reports she plans on taking her medications when she is discharged and states she will talk to my outpatient provider about coming off Haldol and going back on Geodon . Continue current tx plan. 10/26/2023: No changes to current treatment plan 10/27/2023: No changes to current plan 10/28: Pt reports doing well today. She is focused on discharge; pt stated, I'm just waiting to leave here . Pt reports visit with mother went well over the weekend. Continue current tx plan. Patient educated on: diagnosis, medication risk/benefits and therapeutic strategies Informed Consent: understands Reason for continued inpatient stay Substantial Risk for: med/psych decompensation Time Spent With Patient Time: Total time managing care of this patient today _20___ minutes.
[2023-10-28 16:49] LABS: Glucose, Whole Blood 146 mg/dL (60-115)
[2023-10-28 20:55] VITALS: BP 131/68; PULSE 84; RESP 15; TEMP 36.6; O2SAT 97
[2023-10-28] MEDS: metFORMIN HCl 1,000 MG TABLET 1000 MG PO (21:01)
[2023-10-28] MEDS: Propranolol HCL 10 MG TABLET PO (21:01)
[2023-10-28] MEDS: Benztropine Mesylate 0.5 MG TABLET PO (21:02)
[2023-10-28] MEDS: Miconazole 2 % Extra Thick Cr 56.7 Gm Tube 1 APPL TOPICAL (21:02)
[2023-10-28] MEDS: Haloperidol Lactate Oral Conc 10 MG/5 ML ORAL.CONC PO (21:02)
[2023-10-29 07:20] VITALS: BP 109/49; PULSE 70; RESP 18; TEMP 36.4; O2SAT 95
[2023-10-29 07:49] LABS: Glucose, Whole Blood 126 mg/dL (60-115)
[2023-10-29] MEDS: metFORMIN HCl 1,000 MG TABLET 1000 MG PO ×2 (08:58→22:06)
[2023-10-29] MEDS: Propranolol HCL 10 MG TABLET PO ×2 (08:58→22:06)
[2023-10-29] MEDS: Miconazole 2 % Extra Thick Cr 56.7 Gm Tube 1 APPL TOPICAL (09:00)
[2023-10-29 09:02] VITALS: BP 109/49; PULSE 70; RESP 18; TEMP 36.4; O2SAT 98
--- NOTE | 2023-10-29 09:20 | P.PNPSI_ITS ---
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 responding to internal stimuli. Patient denies auditory hallucinations, however reports visual hallucinations at this time; when asked to elaborate, pt stated, I'm seeing too many things to mention . When discussing her weekend patient would stop mid-sentence and state, I'm sharing too much information. I think people are talking and spreading rumors about me again . Patient did have good insight into her presentation and stated, I think I was better on the risperidal . Zyprexa was changed to Zydis; d/t possible cheeking. dose increased to Zyprexa 30mg PO bedtime. 10/01: Patient continues to presents paranoid, delusional; thought blocking. Observed responding to internal stimuli. Patient denies auditory hallucinations. Per nursing, patient had a verbal outburst last evening d/t believing another patient had on the unit. Patient stated, I had a mattress with bugs in it, so I slept in the sensory room. The bugs are now in me . Patient believes she is allergic to zyprexa ; pt stated this is evidence by my tongue swimming ; T/W did not observe any involuntary movements, will continue to monitor. Zyprexa zydis dose changed to 20mg PO BID. 10/02: Patient continues to presents paranoid and delusional. Observed mumbling to self. Patient denies auditory hallucinations. does not present with thought blocking today; more organized. Showered. Pt stated, my skin and fingers have weird sensations when I touch certain things. I'm worried about the bugs being inside of me. Patient reports pain and itching in her left ear. Hospitalist consult placed. When discussing hallucinations, pt stated, I don't believe in treating visual hallucinations with medications . denies SI/HI/AH. Continue current tx plan. 10/03: Patient continues paranoid and delusional. Observed mumbling to self. Patient denies auditory hallucinations. Patient continues to perseverate on somatic complaints; pt stated, the hospitalist came and saw me but they said nothing is wrong with my ears. He just didn't catch it. I haven't had those bugs come out of me yet so I'm worried about that . During 1:1, RN was administering morning medications, when RN left the room, patient began dry heaving and was observed to vomit up sputum. No other incidents of vomiting occurred after this. 10/04: Patient continues paranoid and delusional. Observed mumbling to self. Patient denies auditory hallucinations. Patient continues to perseverate on somatic complaints; pt stated, I'm still worried about bugs being inside of me . Patient became upset and started yelling at T/W, pt stated, You can't medicate the truth out of me! I know what happened! I know the [facility] staff made a bomb threat to my apartment and I'm here because of their retaliation! . Continue current tx plan. 10/04: Continues psychotic. Will Continue current management and treatment plan. Continue Zyprexa. 10/06: Continue current management and treatment plan. Consider switching back to Risperidone or Invega, or adding typical AP. 10/07/2023 Patient seen psychiatric follow-up. The patient has been more agitated disorganized intrusive having difficulty with linear conversations has not responded to olanzapine. She is up to 40 mg reportedly patient has been taking medication we have discussed in team a trial of haloperidol and if not tolerated or beneficial will resume Risperdal and hopefully eventually Invega sustained injection. 10/08: linear and logical in brief interaction today, calm. continue cross- titration, decreasing olanzapine to 5 BID today and adding haldol 5 BID. 10/09: Patient presents drowsy when meeting for 1:1. Patient reports she is having multiple medical concerns ; pt stated, I'm worried that my skin is poisonous because it feels funny. I couldn't sleep last night because I think my brain is bleeding. I'm also still worried about the bugs being inside of me . pt denies any pain. Pt reports she is not taking the Glucophage because it smells funny . DC Zyprexa after tonights dose. 10/10: cont haldol needs much support remains jero thought she is being poisoned 10/11: Pt presents guarded today; pt stated, I'm not worried about the brain bleed but last night I felt there were bugs inside of my body . Patient reports she feels this medications is better than risperidal . denies SI/HI/VH/AH. Continue current tx plan. 10/12: infestation delusions continue. currently taking haldol 5 BID; T/C raising dose in several days if no further gains develop. 10/13: somnolent. no change in presentation. continue current mgmt. 10/13: somnolent. no paranoid delusions expressed. continue current mgmt. 10/15: Patient continues delusional and paranoid. Keeping to self. Observed reading book in room. Patient stated, I feel alright. Sometimes I feel like my brain is bleeding. I also feel like there is something stuck in my blood or stomach, like bugs. Like something is sucking my blood. Maybe we should get a CAT scan. Patient reports she continues to not regularly take the metformin d/t it tasting funny and not knowing if it's the right med . pt denies SI/HI/VH/AH. 10/16: Patient continues delusional and paranoid. Keeping to self. Observed reading book in room. Patient stated, I feel good. Things are okay. I haven't been having the sensation in my stomach anymore. I wouldn't mind getting a CAT scan just in case something is stuck in my blood . Continue current tx plan. 10/17: Attending groups, observed reading and coloring. Patient stated, I feel good. I had a good visit with my mom. I don't know if there are bugs inside of me or not but I'm trying to not think about it . Patient discussed how she felt her court hearing was not just because my pharmacists told me not to talk . denies SI/HI/VH/AH. Call out to patient's parents to determine if patient is allowed to return home. 10/18: Attending groups, observed reading and coloring. keeping to self. Patient reports she is doing okay ; hoping to return home soon. Guarded today. Superficial in conversation. Left VM for patient's father, Ervin Burgos, waiting for call back. Start: Haldol dec 100mg IM Q28 days Changed: Haldol liquid 5mg PO BID to 10mg PO bedtime Cogentin 0.5mg PO BID to 0.5mg PO bedtime 10/19 more withdrawn to room slowed thinking 10/20 seemed a bit more engaged today CTP 10/21/23 more engaged 1:1 , still isolating CTP 10/22: somnolent, no delusional material offered. continue current mgmt. 10/23/23: Observed out in [facility]. attending groups. Pt reports feeling okay today; pt stated, I'm feeling happy because I know I get to leave soon. I feel a lot better. I feel more like myself. My thoughts make more sense. I plan on living with my parents, getting a job and saving up to get my own place again . Pt reports she plans on taking my medications when I leave here . Denies SI/HI/VH/AH. Pt did not express any delusions or paranoia today. Focused on discharge. Continue current tx plan. Waiting for callback from patients father to discuss aftercare planning. 10/24: Observed out in [facility]. attending groups. Organized. Pt reports feeling fine ; pt stated, I'm not anxious or depressed. I'm just hoping to go home soon . Discussed importance of medication compliance. Pt reports she plans on continuing to take medications once discharged. denies SI/HI/VH/AH. Spoke with Sally's parents on the phone with her permission. Discussed medications and importance of medication compliance. Parents stated that Sally is allowed to stay with them as long as she takes her medications and follows up with outpatient providers; they reported the idea of obtaining a [facility] [place]. They plan on contacting unit social science analyst to discuss further discharge planning; trailhead construction worker aware. 10/25: Pt reports doing well today; she denies any side effects from medications. We discussed her current medications, pt stated, I didn't want my parents to tell you that I'm thinking about going back to [facility]. The Haldol is for delusions that I don't have. I never had delusions or psychosis . Pt began explaining why everything she believes is facts and not delusions. Pt stated, I did hear lobotomy on the over head. I also know they were making a movie about me and I think they said lobotomy over head to include that in the movie. Also there was a snake in my body but it's not anymore . Pt reports she is no longer focusing on these but believes that are true. Pt reports she plans on taking her medications when she is discharged and states she will talk to my outpatient provider about coming off Haldol and going back on Geodon . Continue current tx plan. 10/26/2023: No changes to current treatment plan 10/27/2023: No changes to current plan 10/28: Pt reports doing well today. She is focused on discharge; pt stated, I'm just waiting to leave here . Pt reports visit with mother went well over the weekend. Continue current tx plan. 10/29: Pt reports feeling fine today; focused on discharge; denies any side effects from medications. Pt stated, I'm going to keep taking my meds when I leave here . denies SI/HI/VH/AH. Plan to discharge Saturday. Will consider switching from liquid Haldol to tablet. Patient educated on: diagnosis, medication risk/benefits and therapeutic strategies Informed Consent: understands Reason for continued inpatient stay Substantial Risk for: med/psych decompensation Time Spent With Patient Time: Total time managing care of this patient today _20___ minutes.
[2023-10-29 17:23] LABS: Glucose, Whole Blood 118 mg/dL (60-115)
[2023-10-29 20:40] VITALS: BP 138/88; PULSE 93; RESP 16; TEMP 36.6; O2SAT 97
[2023-10-29] MEDS: Haloperidol Lactate Oral Conc 10 MG/5 ML ORAL.CONC PO (22:06)
[2023-10-29] MEDS: Benztropine Mesylate 0.5 MG TABLET PO (22:06)
[2023-10-30 07:20] VITALS: BP 137/58; PULSE 81; RESP 16; TEMP 36.3; O2SAT 95
[2023-10-30 07:52] LABS: Glucose, Whole Blood 115 mg/dL (60-115)
[2023-10-30] MEDS: Propranolol HCL 10 MG TABLET PO ×2 (08:23→20:39)
[2023-10-30] MEDS: metFORMIN HCl 1,000 MG TABLET 1000 MG PO ×2 (08:23→20:39)
[2023-10-30] MEDS: Miconazole 2 % Extra Thick Cr 56.7 Gm Tube 1 APPL TOPICAL (08:24)
--- NOTE | 2023-10-30 09:10 | P.PNPSI_ITS ---
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 I'm sharing too much information. I think people are talking and spreading rumors about me again . Patient did have good insight into her presentation and stated, I think I was better on the risperidal . Zyprexa was changed to Zydis; d/t possible cheeking. dose increased to Zyprexa 30mg PO bedtime. 10/01: Patient continues to presents paranoid, delusional; thought blocking. Observed responding to internal stimuli. Patient denies auditory hallucinations. Per nursing, patient had a verbal outburst last evening d/t believing another patient had on the unit. Patient stated, I had a mattress with bugs in it, so I slept in the sensory room. The bugs are now in me . Patient believes she is allergic to zyprexa ; pt stated this is evidence by my tongue swimming ; T/W did not observe any involuntary movements, will continue to monitor. Zyprexa zydis dose changed to 20mg PO BID. 10/02: Patient continues to presents paranoid and delusional. Observed mumbling to self. Patient denies auditory hallucinations. does not present with thought blocking today; more organized. Showered. Pt stated, my skin and fingers have weird sensations when I touch certain things. I'm worried about the bugs being inside of me. Patient reports pain and itching in her left ear. Hospitalist consult placed. When discussing hallucinations, pt stated, I don't believe in treating visual hallucinations with medications . denies SI/HI/AH. Continue current tx plan. 10/03: Patient continues paranoid and delusional. Observed mumbling to self. Patient denies auditory hallucinations. Patient continues to perseverate on somatic complaints; pt stated, the hospitalist came and saw me but they said nothing is wrong with my ears. He just didn't catch it. I haven't had those bugs come out of me yet so I'm worried about that . During 1:1, RN was administering morning medications, when RN left the room, patient began dry heaving and was observed to vomit up sputum. No other incidents of vomiting occurred after this. 10/04: Patient continues paranoid and delusional. Observed mumbling to self. Patient denies auditory hallucinations. Patient continues to perseverate on somatic complaints; pt stated, I'm still worried about bugs being inside of me . Patient became upset and started yelling at T/W, pt stated, You can't medicate the truth out of me! I know what happened! I know the [facility] staff made a bomb threat to my apartment and I'm here because of their retaliation! . Continue current tx plan. 10/04: Continues psychotic. Will Continue current management and treatment plan. Continue Zyprexa. 10/06: Continue current management and treatment plan. Consider switching back to Risperidone or Invega, or adding typical AP. 10/07/2023 Patient seen psychiatric follow-up. The patient has been more agitated disorganized intrusive having difficulty with linear conversations has not responded to olanzapine. She is up to 40 mg reportedly patient has been taking medication we have discussed in team a trial of haloperidol and if not tolerated or beneficial will resume Risperdal and hopefully eventually Invega sustained injection. 10/08: linear and logical in brief interaction today, calm. continue cross- titration, decreasing olanzapine to 5 BID today and adding haldol 5 BID. 10/09: Patient presents drowsy when meeting for 1:1. Patient reports she is having multiple medical concerns ; pt stated, I'm worried that my skin is poisonous because it feels funny. I couldn't sleep last night because I think my brain is bleeding. I'm also still worried about the bugs being inside of me . pt denies any pain. Pt reports she is not taking the Glucophage because it smells funny . DC Zyprexa after tonights dose. 10/10: cont haldol needs much support remains wuith thought she is being poisoned 10/11: Pt presents guarded today; pt stated, I'm not worried about the brain bleed but last night I felt there were bugs inside of my body . Patient reports she feels this medications is better than risperidal . denies SI/HI/VH/AH. Continue current tx plan. 10/12: infestation delusions continue. currently taking haldol 5 BID; T/C raising dose in several days if no further gains develop. 10/13: somnolent. no change in presentation. continue current mgmt. 10/13: somnolent. no paranoid delusions expressed. continue current mgmt. 10/15: Patient continues delusional and paranoid. Keeping to self. Observed reading book in room. Patient stated, I feel alright. Sometimes I feel like my brain is bleeding. I also feel like there is something stuck in my blood or stomach, like bugs. Like something is sucking my blood. Maybe we should get a CAT scan. Patient reports she continues to not regularly take the metformin d/t it tasting funny and not knowing if it's the right med . pt denies SI/HI/VH/AH. 10/16: Patient continues delusional and paranoid. Keeping to self. Observed reading book in room. Patient stated, I feel good. Things are okay. I haven't been having the sensation in my stomach anymore. I wouldn't mind getting a CAT scan just in case something is stuck in my blood . Continue current tx plan. 10/17: Attending groups, observed reading and coloring. Patient stated, I feel good. I had a good visit with my mom. I don't know if there are bugs inside of me or not but I'm trying to not think about it . Patient discussed how she felt her court hearing was not just because my internet cafe manager told me not to talk . denies SI/HI/VH/AH. Call out to patient's parents to determine if patient is allowed to return home. 10/18: Attending groups, observed reading and coloring. keeping to self. Patient reports she is doing okay ; hoping to return home soon. Guarded today. Superficial in conversation. Left VM for patient's father, Ervin Burgos, waiting for call back. Start: Haldol dec 100mg IM Q28 days Changed: Haldol liquid 5mg PO BID to 10mg PO bedtime Cogentin 0.5mg PO BID to 0.5mg PO bedtime 10/19 more withdrawn to room slowed thinking 10/20 seemed a bit more engaged today CTP 10/21/23 more engaged 1:1 , still isolating CTP 10/22: somnolent, no delusional material offered. continue current mgmt. 10/23/23: Observed out in [facility]. attending groups. Pt reports feeling okay today; pt stated, I'm feeling happy because I know I get to leave soon. I feel a lot better. I feel more like myself. My thoughts make more sense. I plan on living with my parents, getting a job and saving up to get my own place again . Pt reports she plans on taking my medications when I leave here . Denies SI/HI/VH/AH. Pt did not express any delusions or paranoia today. Focused on discharge. Continue current tx plan. Waiting for callback from patients father to discuss aftercare planning. 10/24: Observed out in [facility]. attending groups. Organized. Pt reports feeling fine ; pt stated, I'm not anxious or depressed. I'm just hoping to go home soon . Discussed importance of medication compliance. Pt reports she plans on continuing to take medications once discharged. denies SI/HI/VH/AH. Spoke with Sally's parents on the phone with her permission. Discussed medications and importance of medication compliance. Parents stated that Sally is allowed to stay with them as long as she takes her medications and follows up with outpatient providers; they reported the idea of obtaining a [facility] order. They plan on contacting unit hospice social worker to discuss further discharge planning; gang worker aware. 10/25: Pt reports doing well today; she denies any side effects from medications. We discussed her current medications, pt stated, I didn't want my parents to tell you that I'm thinking about going back to [facility]. The Haldol is for delusions that I don't have. I never had delusions or psychosis . Pt began explaining why everything she believes is facts and not delusions. Pt stated, I did hear lobotomy on the over head. I also know they were making a movie about me and I think they said lobotomy over head to include that in the movie. Also there was a snake in my body but it's not anymore . Pt reports she is no longer focusing on these but believes that are true. Pt reports she plans on taking her medications when she is discharged and states she will talk to my outpatient provider about coming off Haldol and going back on [facility]odon . Continue current tx plan. 10/26/2023: No changes to current treatment plan 10/27/2023: No changes to current plan 10/28: Pt reports doing well today. She is focused on discharge; pt stated, I'm just waiting to leave here . Pt reports visit with mother went well over the weekend. Continue current tx plan. 10/29: Pt reports feeling fine today; focused on discharge; denies any side effects from medications. Pt stated, I'm going to keep taking my meds when I leave here . denies SI/HI/VH/AH. Plan to discharge Saturday. Will consider switching from liquid Haldol to tablet. 10/30: Pt reports feeling good today; guarded. Pt stated, I'm good. I just don't want to talk because I don't trust anyone here . Pt did not make any delusional statements. She is focused on being discharged. denies SI/HI/VH/AH. Patient educated on: diagnosis and medication risk/benefits Informed Consent: understands Reason for continued inpatient stay Substantial Risk for: med/psych decompensation Time Spent With Patient Time: Total time managing care of this patient today _20___ minutes.
[2023-10-30 16:52] LABS: Glucose, Whole Blood 142 mg/dL (60-115)
[2023-10-30 20:15] VITALS: BP 138/82; PULSE 89; RESP 16; TEMP 36.5; O2SAT 96
[2023-10-30] MEDS: Benztropine Mesylate 0.5 MG TABLET PO (20:39)
[2023-10-30] MEDS: Haloperidol Lactate Oral Conc 10 MG/5 ML ORAL.CONC PO (20:39)
[2023-10-30] MEDS: traZODone HCL 50 MG TABLET PO (23:51)
[2023-10-31 06:00] VITALS: BP 101/55; PULSE 77; RESP 14; TEMP 36.7; O2SAT 95
[2023-10-31 08:56] LABS: Glucose, Whole Blood 108 mg/dL (60-115)
--- NOTE | 2023-10-31 09:19 | P.PNPSI_ITS ---
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 discussing her weekend patient would stop mid-sentence and state, I'm sharing too much information. I think people are talking and spreading rumors about me again . Patient did have good insight into her presentation and stated, I think I was better on the risperidal . Zyprexa was changed to Zydis; d/t possible cheeking. dose increased to Zyprexa 30mg PO bedtime. 10/01: Patient continues to presents paranoid, delusional; thought blocking. Observed responding to internal stimuli. Patient denies auditory hallucinations. Per nursing, patient had a verbal outburst last evening d/t believing another patient had on the unit. Patient stated, I had a mattress with bugs in it, so I slept in the sensory room. The bugs are now in me . Patient believes she is allergic to zyprexa ; pt stated this is evidence by my tongue swimming ; T/W did not observe any involuntary movements, will continue to monitor. Zyprexa zydis dose changed to 20mg PO BID. 10/02: Patient continues to presents paranoid and delusional. Observed mumbling to self. Patient denies auditory hallucinations. does not present with thought blocking today; more organized. Showered. Pt stated, my skin and fingers have weird sensations when I touch certain things. I'm worried about the bugs being inside of me. Patient reports pain and itching in her left ear. Hospitalist consult placed. When discussing hallucinations, pt stated, I don't believe in treating visual hallucinations with medications . denies SI/HI/AH. Continue current tx plan. 10/03: Patient continues paranoid and delusional. Observed mumbling to self. Patient denies auditory hallucinations. Patient continues to perseverate on somatic complaints; pt stated, the hospitalist came and saw me but they said nothing is wrong with my ears. He just didn't catch it. I haven't had those bugs come out of me yet so I'm worried about that . During 1:1, RN was administering morning medications, when RN left the room, patient began dry heaving and was observed to vomit up sputum. No other incidents of vomiting occurred after this. 10/04: Patient continues paranoid and delusional. Observed mumbling to self. Patient denies auditory hallucinations. Patient continues to perseverate on somatic complaints; pt stated, I'm still worried about bugs being inside of me . Patient became upset and started yelling at T/W, pt stated, You can't medicate the truth out of me! I know what happened! I know the [facility] staff made a bomb threat to my apartment and I'm here because of their retaliation! . Continue current tx plan. 10/04: Continues psychotic. Will Continue current management and treatment plan. Continue Zyprexa. 10/06: Continue current management and treatment plan. Consider switching back to Risperidone or Invega, or adding typical AP. 10/07/2023 Patient seen psychiatric follow-up. The patient has been more agitated disorganized intrusive having difficulty with linear conversations has not responded to olanzapine. She is up to 40 mg reportedly patient has been taking medication we have discussed in team a trial of haloperidol and if not tolerated or beneficial will resume Risperdal and hopefully eventually Invega sustained injection. 10/08: linear and logical in brief interaction today, calm. continue cross- titration, decreasing olanzapine to 5 BID today and adding haldol 5 BID. 10/09: Patient presents drowsy when meeting for 1:1. Patient reports she is having multiple medical concerns ; pt stated, I'm worried that my skin is poisonous because it feels funny. I couldn't sleep last night because I think my brain is bleeding. I'm also still worried about the bugs being inside of me . pt denies any pain. Pt reports she is not taking the Glucophage because it smells funny . DC Zyprexa after tonights dose. 10/10: cont haldol needs much support remains wuith thought she is being poisoned 10/11: Pt presents guarded today; pt stated, I'm not worried about the brain bleed but last night I felt there were bugs inside of my body . Patient reports she feels this medications is better than risperidal . denies SI/HI/VH/AH. Continue current tx plan. 10/12: infestation delusions continue. currently taking haldol 5 BID; T/C raising dose in several days if no further gains develop. 10/13: somnolent. no change in presentation. continue current mgmt. 10/13: somnolent. no paranoid delusions expressed. continue current mgmt. 10/15: Patient continues delusional and paranoid. Keeping to self. Observed reading book in room. Patient stated, I feel alright. Sometimes I feel like my brain is bleeding. I also feel like there is something stuck in my blood or stomach, like bugs. Like something is sucking my blood. Maybe we should get a CAT scan. Patient reports she continues to not regularly take the metformin d/t it tasting funny and not knowing if it's the right med . pt denies SI/HI/VH/AH. 10/16: Patient continues delusional and paranoid. Keeping to self. Observed reading book in room. Patient stated, I feel good. Things are okay. I haven't been having the sensation in my stomach anymore. I wouldn't mind getting a CAT scan just in case something is stuck in my blood . Continue current tx plan. 10/17: Attending groups, observed reading and coloring. Patient stated, I feel good. I had a good visit with my mom. I don't know if there are bugs inside of me or not but I'm trying to not think about it . Patient discussed how she felt her court hearing was not just because my gas generator operator told me not to talk . denies SI/HI/VH/AH. Call out to patient's parents to determine if patient is allowed to return home. 10/18: Attending groups, observed reading and coloring. keeping to self. Patient reports she is doing okay ; hoping to return home soon. Guarded today. Superficial in conversation. Left VM for patient's father, Ervin Burgos, waiting for call back. Start: Haldol dec 100mg IM Q28 days Changed: Haldol liquid 5mg PO BID to 10mg PO bedtime Cogentin 0.5mg PO BID to 0.5mg PO bedtime 10/19 more withdrawn to room slowed thinking 10/20 seemed a bit more engaged today CTP 10/21/23 more engaged 1:1 , still isolating CTP 10/22: somnolent, no delusional material offered. continue current mgmt. 10/23/23: Observed out in [facility]. attending groups. Pt reports feeling okay today; pt stated, I'm feeling happy because I know I get to leave soon. I feel a lot better. I feel more like myself. My thoughts make more sense. I plan on living with my parents, getting a job and saving up to get my own place again . Pt reports she plans on taking my medications when I leave here . Denies SI/HI/VH/AH. Pt did not express any delusions or paranoia today. Focused on discharge. Continue current tx plan. Waiting for callback from patients father to discuss aftercare planning. 10/24: Observed out in [facility]. attending groups. Organized. Pt reports feeling fine ; pt stated, I'm not anxious or depressed. I'm just hoping to go home soon . Discussed importance of medication compliance. Pt reports she plans on continuing to take medications once discharged. denies SI/HI/VH/AH. Spoke with Sally's parents on the phone with her permission. Discussed medications and importance of medication compliance. Parents stated that Sally is allowed to stay with them as long as she takes her medications and follows up with outpatient providers; they reported the idea of obtaining a [facility] order. They plan on contacting unit social services specialist to discuss further discharge planning; human services worker aware. 10/25: Pt reports doing well today; she denies any side effects from medications. We discussed her current medications, pt stated, I didn't want my parents to tell you that I'm thinking about going back to [facility]. The Haldol is for delusions that I don't have. I never had delusions or psychosis . Pt began explaining why everything she believes is facts and not delusions. Pt stated, I did hear lobotomy on the over head. I also know they were making a movie about me and I think they said lobotomy over head to include that in the movie. Also there was a snake in my body but it's not anymore . Pt reports she is no longer focusing on these but believes that are true. Pt reports she plans on taking her medications when she is discharged and states she will talk to my outpatient provider about coming off Haldol and going back on Geodon . Continue current tx plan. 10/26/2023: No changes to current treatment plan 10/27/2023: No changes to current plan 10/28: Pt reports doing well today. She is focused on discharge; pt stated, I'm just waiting to leave here . Pt reports visit with mother went well over the weekend. Continue current tx plan. 10/29: Pt reports feeling fine today; focused on discharge; denies any side effects from medications. Pt stated, I'm going to keep taking my meds when I leave here . denies SI/HI/VH/AH. Plan to discharge Saturday. Will consider switching from liquid Haldol to tablet. 10/30: Pt reports feeling good today; guarded. Pt stated, I'm good. I just don't want to talk because I don't trust anyone here . Pt did not make any delusional statements. She is focused on being discharged. denies SI/HI/VH/AH. 10/31: Pt reports feeling good today; pt stated, I feel fine. I'm going to get [employer] food and catch up on texts and emails when I leave. I want to move out of my parents as soon as possible to have my independence and freedom . Pt reports she plans on taking her medications when discharged. denies SI/HI/VH/AH. Spoke with patient's mother today;she plans on picking Sally up tomorrow. VNA services are in place for patient to receive JE[facility] and assist with medication compliance. Patient educated on: diagnosis, medication risk/benefits and therapeutic strategies Guardian/Caregiver educated on: diagnosis and medication risk/benefits Informed Consent: understands Reason for continued inpatient stay Substantial Risk for: stable for discharge Time Spent With Patient Time: Total time managing care of this patient today _30___ minutes.
[2023-10-31 12:50] VITALS: BP 123/61; PULSE 97; RESP 18
[2023-10-31] MEDS: Propranolol HCL 10 MG TABLET PO ×2 (12:59→21:11)
[2023-10-31] MEDS: metFORMIN HCl 1,000 MG TABLET 1000 MG PO ×2 (12:59→21:11)
[2023-10-31] MEDS: Miconazole 2 % Extra Thick Cr 56.7 Gm Tube 1 APPL TOPICAL ×2 (13:01→21:17)
[2023-10-31] MEDS: Nystatin Cream 15 GM TUBE 1 APPL TOPICAL ×2 (15:30→21:16)
[2023-10-31 16:00] LABS: Glucose, Whole Blood 127 mg/dL (60-115)
[2023-10-31 21:09] VITALS: BP 136/63; PULSE 80; RESP 18; TEMP 36.6; O2SAT 97
[2023-10-31] MEDS: Benztropine Mesylate 0.5 MG TABLET PO (21:11)
[2023-10-31] MEDS: HaloperidoL 5 MG TABLET 10 MG PO (21:14)
[2023-11-01] MEDS: traZODone HCL 50 MG TABLET PO (00:52)
[2023-11-01 07:25] VITALS: BP 107/55; PULSE 82; RESP 16; TEMP 36.3; O2SAT 95
[2023-11-01 08:17] LABS: Glucose, Whole Blood 113 mg/dL (60-115)
--- NOTE | 2023-11-01 09:16 | PM.PSYDC ---
DS: Providers Provider Date of Service: 11/01/23 Date of admission: 07/30/23 20:15 Date of discharge: 11/01/23 Primary care physician: Unknown Physician Admitting clinician: Gayatri Mcclendon Attending physician on admission: Michael Gavin Consults: 10/02/23 13:21 Consult to Hospitalist Routine Comment: Consulting Provider: Hospitalist Reason For Exam: New onset L ear pain, itching 10/18/23 09:55 Consult to Hospitalist Routine Comment: Consulting Provider: Hospitalist Reason For Exam: Elevated liver panel, and lipids Attending physician on discharge: Mario Patel Discharging clinician: Gayatri Mcclendon DS: Diagnosis Discharge Diagnosis (1) Schizoaffective disorder: Status: Acute DS: Medications Discharge Medications Home Medications: Home Medications Medication Instructions Recorded Confirmed clonidine HCl 0.1 mg tablet 0.1 mg PO BID PRN Anxiety 07/28/23 07/28/23 lisinopril 2.5 mg tablet 2.5 mg PO DAILY 07/28/23 07/28/23 metformin 1,000 mg tablet 1,000 mg PO BID 07/28/23 07/28/23 naproxen 500 mg tablet 500 mg PO BID 07/28/23 07/28/23 propranolol 10 mg tablet 10 mg PO BID 07/28/23 07/28/23 trazodone 50 mg tablet 50 mg PO BEDTIME PRN Insomnia 07/28/23 07/28/23 ziprasidone HCl 40 mg capsule 40 mg PO DAILY 07/28/23 07/28/23 ziprasidone HCl 60 mg capsule 60 mg PO DAILY@1700 07/28/23 07/29/23 Previous Rx's Medication Instructions Recorded albuterol sulfate 90 mcg/actuation 2 puff inhalation RQ4H PRN short 02/25/23 aerosol inhaler (Ventolin HFA) of breath 30 days #1 inhaler haloperidol decanoate 50 mg/mL 100 mg (2 mL) IM Q28D 28 days #2 mL 10/29/23 intramuscular solution Mental Status Exam Mental Status Exam Narrative: Pt is alert and oriented; behavior is cooperative and calm; dressed in casual attire; mood is described as good ; eye contact appropriate; Speech is normal rate, volume and prosody and not pressured; thought process is organized and goal directed; Thought content is on discharge; denies SI/HI/VH/AH. Data Data Completed and Pending Completed studies during hospitalization [Text1]: 10/25/23 10/26/23 10/26/23 20:32 08:18 17:05 Creatinine Estim Creat Clear Calc Estimated GFR POC Glucose 174 H 142 H 178 H 10/27/23 10/27/23 10/27/23 07:42 10:16 17:10 Creatinine 0.69 Estim Creat Clear Calc 131.5 Estimated GFR > 60 POC Glucose 157 H 157 H 10/28/23 10/28/23 10/29/23 07:43 16:44 07:44 Creatinine Estim Creat Clear Calc Estimated GFR POC Glucose 132 H 146 H 126 H 10/29/23 10/30/23 10/30/23 17:15 07:47 16:43 Creatinine Estim Creat Clear Calc Estimated GFR POC Glucose 118 H 115 142 H 10/31/23 10/31/23 11/01/23 08:52 15:57 08:02 Creatinine Estim Creat Clear Calc Estimated GFR POC Glucose 108 127 H 113 08/03/23 15:47 Urine clean catch - Clean Catch Midstream Urine Culture - Final 07/29/23 Unknown Urine clean catch - Urine cid top Urine Culture - Final DS: Summary Hospital Course Hospital Course: Patient is a 27 year old female (they/them) with hx of Schizoaffective d/o who [place] [facility] [place]ia, delusions throughout the day which resulted in them calling the police to report a bomb threat on their old apartment building secondary to medication non-compliance. Per crisis report, pt has initially been accepted at [facility] as a step down tx after being IPLOC at [facility] for 1.5 months(May 2023) d/t reports of persecutory delusions; per hx, Sally struggles with angus, delusions and worsening paranoia. Pt presented with poor eye contact, poor sleep per patient and eating minimally. Pt denied any auditory hallucinations, presented with delusions such as earthquakes causing brain injuries and people attempting to murder their current therapist. During admission assessment, pt presented disorganized, with thought blocking, and observed responding to internal stimuli. Patient stated, I'm having a hard time focusing on what you're asking. I'm not usually this weird . Patient asked T/W to repeat questions multiple times. Patient would then stare at T/W and start mumbling and turn to the side as if they were talking to someone and then would turn to T/W and answer question. They report being medication compliant. Will attempt to discuss starting on mood stabilizer once patient becomes a bit more clear. Denies SI/HI/VH/AH. During hospital course, Pt presents disorganized with thought blocking. Observed responding to internal stimuli, keeping to self. Pt stated, I'm struggling but whatever. There are too many threats in my life right now and it's making me confused. I'm worried about a lot of people. I'm struggling to explain . Patient reports she believes she has been wire tapped by the news . med compliant. Increased: Geodon to 60mg PO BID conversation is more fluid today after receiving Haldol 5mg PO once and Ativan 1mg PO once yesterday. Increased Geodon to 60mg PO BID. Patient presents alert and oriented today. She is able to state the name of the hospital, the correct month, year, president. However she does present with delusions stating, the last hospital I was at put snakes inside of me and I need to get them removed. I don't need to be on the psychiatric side; I need to be on the medical side of the hospital . Patient reports having visual hallucinations that are distracting but they are not negatively effecting my ability to function . Patient keeping to self, isolative to room. Patient will stop mid-sentence and become distracted by visual hallucinations; she did not elaborate on what they were. Patient reports she would be accepting with an increase in her Geodon and gave verbal permission for T/W to speak with her father. Patient encouraged to consider a JEFF; pt reports other providers have also brought up this topic and would like to consider this option. Presents with thought blocking, not eating unless prompted by staff. Refused medications despite staff encouragement. Observed responding to internal stimuli. Pt continues to believe there is a snake in her body that was placed by last hospitalization. Consider filing Section 7&8 if pt does not improve d/t safety concerns. Patient met with [facility] community case manager and T/W today. Presents with thought blocking, paranoia, delusional. Believes we are trying to poison her with medications; believes people are spreading rumors about her. Unable to focus on conversation d/t perceptual disturbances. Observed looking around the room, talking to self, pt's name must be called multiple times before responding and stating what? I didn't hear you . She reports she would like to go to a care home after being discharged from hospital. We discussed benefits of JEFF; T/W informed her that her father also mentioned that he would prefer patient to receive JEFF. Pt then shouted, My father would never say that! Someone is impersonating him! . Continues to believe there was a snake placed inside of her body by last hospital. Not eating unless prompted by staff. Refused medications despite staff encouragement. Patient continues to present disorganized and delusional. pt stated, I'm worried about the people in my life.The first night I was here,someone was outside my window and threatening me and my family . Pt did take Geodon 80mg PO today d/t pharmacy being able to obtain pill that has 80 printed on it; previous pills had various numbers on pill, which made patient believe she was being givan a very high dosage. She continues to refuse some of her medications. Observed responding to internal stimuli. Will not file on patient d/t starting to take Geodon; pt reports she plans on continuing to be medication compliant. Patient continues to present delusional and paranoid. Pt stated, I have stuff going on that's weird and I don't know what's behind it. Your coworker Adrienne is involved with something being outside my window, threatening me and my family. I don't trust the or police. Also someone was trying to make a horror movie of me at the last hospital while using the cameras . T/W reviewed medications with pt's request; pt stated, I don't need an antipsychotics. You were trying to give me really high dosages of Geodon, like 200 something but now it's correct . T/W explained her dosage was correct,and the manufacture writes numbers on some medications; pt continued to accuse T/W of giving her incorrect dosage. Observed responding to internal stimuli. Refused her morning dose of Geodon. Pt reports she is worried that I have radiation poisoning and will get all of you sick . Patient believes she came to the hospital d/t [facility] being worried that I was going to get their employees in trouble for telling the police they were going to set off a bomb at my last apartment . Patient reports she spoke to her parents yesterday on the phone and feels upset since my parents are not taking the threats seriously and think I'm paranoid. I'm not paranoid! . Patient gives verbal consent to speak with her father but does not want us to speak with her mother. Pt perseverative about various safety concerns and threats. Conditional voluntary revoked and filed section 7. Continue to encourage taking medications. Observed staring around room. Responding to internal stimuli. T/W would call patients name, pt would stop, stare at T/W not respond. Pt stated, I'm too poisoned to take anything. I heard some scary staff about the doctor here. I'm scared. I'm worried about the world . Pt did confirm that she is having visual hallucinations today; but would not elaborate. Patient anxious somatically preoccupied, appears to be intentionally self induce vomiting. when asked questions often feeling food is not somehow right, medications not somehow right, needs much encouragement to take care of herself,food, fluids. intermittent medication acceptance. does not seem capable of taking care of herself outside of a hospital setting at this time. hearing for commitment and treatment plan schedule for tomorrow. patient does not show any insight regarding need for antipsychotic treatment it is potentially stabilizing impact on her life. She did state that she had been stable on Risperdal in the past. Patient now here on commitment treatment plan ordered. Will try to engage in treatment. pt agreeable to risperadol can eventually convert to sustena. on sec 8 tx plan started increase risperdal to 2 mg bid Patient continues to present delusional and paranoid. Pt stated, someone recently released a book about me. I haven't read it yet . Observed responding to internal stimuil; however denies AH/VH. Patient medication compliant last evening and this morning. She continues with paranoid delusions, expressing concern of other peoples safety and people writing about me . Social at times with select peers. she is concerned she will contaminate the water supply if she showers or uses the toliet. Patient stated, I've been peeing and pooping in the pullups that I used for my period. I'm worried about contaminating the water supply . Patient reports she is upset because she believes the court hearing wasn't legal and the [place] order is against the law . Staff will continue to encourage patient to shower. Pt reports she is now using the toilet and no longer using pull ups, even though I'm still worried about the water system . Patient refused to shower yesterday. Risperidal changed to liquid to avoid cheeking. she continues to refuse to shower d/t her concern of her radiation contaminating the water supply. Observed talking to self at times. Thought blocking. Pt stated, can you change the medication back to the pill form because I know there is acid being put into the liquid kind . Pt requesting test d/t not feeling right ; test ordered. Pt refused labs yesterday; allowed today; waiting results. Continues delusional, paranoid, perseverative regarding cameras in the showers . Pt reports she is feeling less concerned about contaminating the water ; pt stated, the violence I went through at [facility] was hard and the poisoning . Pt is able to tolerate some reality testing and vocalized that perhaps some of the memories could been wrong of what happened . Risperidal increased to 3mg PO BID. Plan to change to long-acting injectable if patient tolerates and shows ongoing clear improvement. Pt continues paranoid and delusional. Pt reports feeling okay today; pt stated, I'm still worried about what these physical problems were; I'm thinking it was poison. The overhead announcement said they were doing lobotomies. I'm confident I didn't miss hear it. I was threatened with one when I first got here; there was an overhead announcement about it . Pt stated, The metformin tastes funny, which makes me worry. I still want a medical consult to rule out radiation. I'm not brushing my teeth and haven't since I got here because you're not supposed to brush your teeth when you have radiation poisoning. I also think I pooped out the snake . Patient also mentioned that she believes is a Nazi . Patient reports feeling okay ; pt stated, I'm feeling a little depressed and anxious because of this general situation . She reports feeling tired in the morning d/t the risperidal. Risperidal changed to 1mg PO daily and 5mg PO bedtime. Pt continues to present with paranoia however, reality testing has improved today, pt stated, I don't think I have radiation poisoning; I do think I have been poisoned by the last hospital. Not brushing my teeth is a left over fear from the radiation but I'm going to try to brush my teeth today . pt perseverating on having a hospitalist consult. 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 I still don't feel safe to brush my teeth . No significant improvement with risperidone Showered, continues to refuse to brush teeth. Will talk with patient tomorrow about starting her on Zyprexa and discontinuing risperidal d/t minimal affect. She did not respond to Geodon earlier in this admission there appears to be some response to Risperdal given patient's lack of insight lack of cooperation with outpatient treatment she would seem to benefit from a long-acting injectable other options would include olanzapine clozapine however given patient's obesity history of glucose intolerance would benefit from seeing if she would respond to conversion to Invega sustenna. Appears sedated this morning. Per nursing staff this morning; when she was told that the director of customer acquisition was here to draw some labs she became very upset stating why would you send a lobotomist in to me is she going to preform brain surgery on me is she going to lobotomize me . Discussed with patient use of long-acting injectable however given patient's sedation would be less likely to tolerate Invega sustain discussed with patient possibility of Haldol states she had not done well on Abilify in the past. Patient not tolerating higher doses of Risperdal had plan to convert to Invega Systane up. Has been somewhat lethargic reportedly during the day. Patient continues with severe psychosis no insight literature for treatment resistant psychosis suggest changed from Risperdal to olanzapine has increase likelihood of response. Will need to monitor blood sugar weight patient already has glucose intolerance in obesity however cannot functioning current psychotic state may develop greater insight if psychosis response case reviewed with other psychiatrist on the unit taper Risperdal start olanzapine. Patient continues to present delusional and paranoid. Patient stated, I know thinks I'm psychotic but I'm not. The Geodon was poisonous which is why I switched to Risperidal. I got poisoned at the last hospital because of the rumors about the movie they were making about me. Also my new room mate who just came here, heard the [facility] workers make the bomb threat to my apartment . patient denies any side effects from starting zyprexa. Increase Zyprexa to 10mg PO bedtime. decrease risperidal to 2mg PO daily at 1900. Risperidal DC'd. Increased Zyprexa to 15mg PO bedtime. Start: Cogentin 0.5mg PO bedtime. increase Zyprexa to 20 mg p.o. q.h.s. and add p.r.n. Zyprexa for psychosis the patient is grossly psychotic. Patient has decompensated; presents paranoid, delusional; thought blocking, T/W had to call patient's name numerous times before she would focus on what was being asked. Observed responding to internal stimuli. Patient denies auditory hallucinations, however reports visual hallucinations at this time; when asked to elaborate, pt stated, I'm seeing too many things to mention . When discussing her weekend patient would stop mid-sentence and state, I'm sharing too much information. I think people are talking and spreading rumors about me again . Patient did have good insight into her presentation and stated, I think I was better on the risperidal . Zyprexa was changed to Zydis; d/t possible cheeking. dose increased to Zyprexa 30mg PO bedtime. Per nursing, patient had a verbal outburst last evening d/t believing another patient had on the unit. Patient stated, I had a mattress with bugs in it, so I slept in the sensory room. The bugs are now in me . Patient believes she is allergic to zyprexa ; pt stated this is evidence by my tongue swimming ; T/W did not observe any involuntary movements, will continue to monitor. Zyprexa zydis dose changed to 20mg PO BID. Patient continues paranoid and delusional. Observed mumbling to self. Patient denies auditory hallucinations. Patient continues to perseverate on somatic complaints; pt stated, the hospitalist came and saw me but they said nothing is wrong with my ears. He just didn't catch it. I haven't had those bugs come out of me yet so I'm worried about that . During 1:1, RN was administering morning medications, when RN left the room, patient began dry heaving and was observed to vomit up sputum. No other incidents of vomiting occurred after this. Patient became upset and started yelling at T/W, pt stated, You can't medicate the truth out of me! I know what happened! I know the [facility] staff made a bomb threat to my apartment and I'm here because of their retaliation! . The patient has been more agitated disorganized intrusive having difficulty with linear conversations has not responded to olanzapine. She is up to 40 mg reportedly patient has been taking medication we have discussed in team a trial of haloperidol and if not tolerated or beneficial will resume Risperdal and hopefully eventually Invega sustained injection. linear and logical in brief interaction today, calm. continue cross-titration, decreasing olanzapine to 5 BID today and adding haldol 5 BID. Patient reports she feels this medications is better than risperidal . Patient continues delusional and paranoid. Keeping to self. Observed reading book in room. Patient stated, I feel alright. Sometimes I feel like my brain is bleeding. I also feel like there is something stuck in my blood or stomach, like bugs. Like something is sucking my blood. Maybe we should get a CAT scan. Patient reports she continues to not regularly take the metformin d/t it tasting funny and not knowing if it's the right med . Attending groups, observed reading and coloring. Patient stated, I feel good. I had a good visit with my mom. I don't know if there are bugs inside of me or not but I'm trying to not think about it . Patient discussed how she felt her court hearing was not just because my sample patternmaker told me not to talk . Call out to patient's parents to determine if patient is allowed to return home. Left for patient's father, Ervin Burgos, waiting for call back. Start: Haldol dec 100mg IM Q28 days Changed: Haldol liquid 5mg PO BID to 10mg PO bedtime Cogentin 0.5mg PO BID to 0.5mg PO bedtime Observed out in [facility]. attending groups. Pt reports feeling okay today; pt stated, I'm feeling happy because I know I get to leave soon. I feel a lot better. I feel more like myself. My thoughts make more sense. I plan on living with my parents, getting a job and saving up to get my own place again . Pt reports she plans on taking my medications when I leave here . Denies SI/HI/VH/AH. Pt did not express any delusions or paranoia today. Focused on discharge. Waiting for callback from patients father to discuss aftercare planning. Observed out in [facility]. attending groups. Organized. Pt reports feeling fine ; pt stated, I'm not anxious or depressed. I'm just hoping to go home soon . Discussed importance of medication compliance. Pt reports she plans on continuing to take medications once discharged. Spoke with Sally's parents on the phone with her permission. Discussed medications and importance of medication compliance. Parents stated that Sally is allowed to stay with them as long as she takes her medications and follows up with outpatient providers; they reported the idea of obtaining a [facility] order. They plan on contacting unit social services assistant to discuss further discharge planning; group social worker aware. Pt reports doing well today; she denies any side effects from medications. We discussed her current medications, pt stated, I didn't want my parents to tell you that I'm thinking about going back to Geodon. The Haldol is for delusions that I don't have. I never had delusions or psychosis . Pt began explaining why everything she believes is facts and not delusions. Pt stated, I did hear lobotomy on the over head. I also know they were making a movie about me and I think they said lobotomy over head to include that in the movie. Also there was a snake in my body but it's not anymore . Pt reports she is no longer focusing on these but believes that are true. Pt reports she plans on taking her medications when she is discharged and states she will talk to my outpatient provider about coming off Haldol and going back on Geodon . Continue current tx plan. Pt reports doing well today. She is focused on discharge; pt stated, I'm just waiting to leave here . Pt reports visit with mother went well over the weekend. Pt reports feeling good today; pt stated, I feel fine. I'm going to get [place] food and catch up on texts and emails when I leave. I want to move out of my parents as soon as possible to have my independence and freedom . Pt reports she plans on taking her medications when discharged. denies SI/HI/VH/AH. Spoke with patient's mother today;she plans on picking Sally up. VNA services are in place for patient to receive JEFF and assist with medication compliance. Time spent discussing smoking cessation with patient: 3 to 10 minutes Status at Discharge Cognitive/behavioral status at discharge: Patient was interviewed prior to discharge and found to be fully oriented and without any SI or HI. Patient is not in imminent risk of harm to self or others and has a safety plan that includes presenting to the closest ER or calling 911 if feeling unsafe. Functional status at discharge: independent ambulation Overall status at discharge: patient is back to baseline Time Spent with Patient Time attestation: Total time managing care of this patient today _30___ minutes. Time spent: Less than 30 minutes Discharge Plan Discharge Anticipated Discharge Date/Time: 11/01/23 12:00 Patient Disposition: Home, Self-Care Discharge Diagnosis: Schizoaffective d/o Referrals: Adrian Todd (Psychiatry) [Other] - 11/26/23 10:00 am (TELEHEALTH APPOINTMENT) Nicol Phillips (Therapy) [Other] - 11/04/23 11:00 am (TELEHEALTH APPOINTMENT -The zoom link will be sent via email. If any questions reach out to Nicol. ) Dr. Ruthann Woodruff (PCP) [Other] - 11/12/23 9:00 am () [facility] [Other] - 1 Week ( VNA requested to assist with injectable psych medication. After the client is D/C'd the VNA service will call the client to set a meeting time to solidify plans moving forward. ) Discharge Medications: New nystatin 100,000 unit/gram Cream 1 appl topical BID 30 Days Qty: 15 0RF Protocol: Apply to: Apply to: Bilateral armpits benztropine 0.5 mg Tablet 0.5 mg PO BEDTIME 30 Days Qty: 30 0RF haloperidol 10 mg tablet 10 mg PO BEDTIME 30 Days Qty: 30 0RF haloperidol decanoate [Haldol Decanoate] 100 mg/mL solution 100 mg IM Q4W 28 Days Qty: 1 0RF Rx Instructions: IM due 11/15/2023 Continued clonidine HCl 0.1 mg tablet 0.1 mg PO BID PRN (Reason: Anxiety) 30 Days Qty: 60 0RF propranolol 10 mg tablet 10 mg PO BID 30 Days Qty: 60 0RF metformin 1,000 mg tablet 1,000 mg PO BID 30 Days Qty: 60 0RF albuterol sulfate [Ventolin HFA] 90 mcg/actuation Hfa Aerosol Inhaler 2 puff inhalation RQ4H PRN (Reason: short of breath) 30 Days Qty: 1 0RF Discontinued trazodone 50 mg tablet 50 mg PO BEDTIME PRN (Reason: Insomnia) ziprasidone HCl 40 mg capsule 40 mg PO DAILY ziprasidone HCl 60 mg capsule 60 mg PO DAILY@1700 lisinopril 2.5 mg tablet 2.5 mg PO DAILY naproxen 500 mg tablet 500 mg PO BID Discharge Orders: Discharge Order (Routine); Ordered 11/01/23 Ordered By: Gayatri Mcclendon Diet: Regular diet Activity on Discharge: As tolerated Stand Alone Forms: Patient Portal Discharge page, Community Support Care Plan Goals: Maintain mood and safe behaviors Take medications as prescribed Practice coping skills Continue with outpatient providers and reach out to them as needed Health Concerns: Mood stability and behaviors Plan of Treatment: Follow up with your PCP, psychiatric provider and other outpatient providers regarding above concerns Take medications as prescribed Assessment: Patient was interviewed prior to discharge and found to be fully oriented and without any SI or HI. Patient is not in imminent risk of harm to self or others and has a safety plan that includes presenting to the closest ER or calling 911 if feeling unsafe. Discharge Date/Time: 11/01/23 14:55
[2023-11-01] MEDS: Miconazole 2 % Extra Thick Cr 56.7 Gm Tube 1 APPL TOPICAL (11:01)
[2023-11-01] MEDS: Nystatin Cream 15 GM TUBE 1 APPL TOPICAL (11:02)
[2023-11-01] MEDS: metFORMIN HCl 1,000 MG TABLET 1000 MG PO (11:03)
[2023-11-01] MEDS: Propranolol HCL 10 MG TABLET PO (11:03)
[2023-11-01] MEDS: Benztropine Mesylate 1 MG TABLET PO (12:18)
== END 2023-11-01 14:55 | disposition home or self-care (01) | DRG 885 ==
LOC: HO.ED 07-29 01:53 → HO.PADLT16 07-30 20:17
PROVIDERS: Clinical Nurse Specialist Psychiatric/Mental Health, Adult; Emergency Medicine; Physician Assistant Medical; Psychiatry & Neurology Psychiatry; Admitting Provider Psychiatry & Neurology Psychiatry; Emergency Provider Internal Medicine; Responsible Provider Registered Nurse; Visit Provider Psychiatry & Neurology Psychiatry
DX: F25.9 Schizoaffective disorder, unspecified (principal); Z20.822 Contact with and (suspected) exposure to COVID-19; Z79.84 Long term (current) use of oral hypoglycemic drugs; Z79.899 Other long term (current) 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
CPT/HCPCS: 36415; 80048; 80053; 80061; 80076; 80307; 80342; 81001; 81025; 82140; 82565; 82947; 83036; 84443; 85025; 87086; 87507; 87635; 93005; 99285; J1631; J2359

== ENCOUNTER 2023-07-30 20:15 | Outpatient (BNV) | payer MEDICAID, SELFPAY | END 2023-10-18 15:11 | PROVIDERS: Admitting Provider Psychiatry & Neurology Psychiatry; Emergency Provider Internal Medicine; Responsible Provider Registered Nurse; Visit Provider Internal Medicine | DX: I45.81 Long QT syndrome (principal) | CPT/HCPCS: 93010 ==

== ENCOUNTER → 2023-07-30 20:15 | Outpatient (BNV) | payer OTHER, SELFPAY | PROVIDERS: Admitting Provider Psychiatry & Neurology Psychiatry; Emergency Provider Internal Medicine; Responsible Provider Registered Nurse; Visit Provider Psychiatry & Neurology Psychiatry | DX: F25.0 Schizoaffective disorder, bipolar type (principal) | CPT/HCPCS: 90792; 99231; 99232; 99233 ==

== ENCOUNTER → 2023-07-30 20:15 | Outpatient (BNV) | payer OTHER, SELFPAY | PROVIDERS: Admitting Provider Psychiatry & Neurology Psychiatry; Emergency Provider Internal Medicine; Responsible Provider Registered Nurse; Visit Provider Psychiatry & Neurology Psychiatry | DX: F25.0 Schizoaffective disorder, bipolar type (principal) | CPT/HCPCS: 99231; 99232 ==

== ENCOUNTER 2023-11-01 16:37 | Emergency (ER) | payer MEDICAID, SELFPAY ==
--- NOTE | 2023-11-01 16:39 | ECG_ITS ---
Test Reason : ALLERGIC REACTION Blood Pressure : / mmHG Vent. Rate : 090 BPM Atrial Rate : 090 BPM P-R Int : 142 ms QRS Dur : 070 ms QT Int : 352 ms P-R-T Axes : 039 027 042 degrees QTc Int : 430 ms Normal sinus rhythm Normal ECG When compared with ECG of 18-OCT-2023 15:11, No significant change was found Referred By: Jess Araya Electronically Signed By:JAX SOLIS MD
[2023-11-01 17:18] VITALS: BP 121/59; PULSE 97; RESP 16; TEMP 36.9; O2SAT 95; BMI 41.6
--- NOTE | 2023-11-01 17:19 | ED_ITS ---
HPI - General Adult General Chief complaint: Allergic Reaction Stated complaint: allergic reaction? throat irritated, chest pressur Time Seen by Provider: 11/01/23 17:50 Source: patient Mode of arrival: ambulatory Limitations: no limitations History of Present Illness HPI narrative: Patient is a 28 year old assigned female at with a history of bipolar disorder presenting to the emergency department today with nausea and a throat swelling sensation. Patient states that she was at a restaurant when she developed nausea and felt like maybe her throat was swelling. Patient states that she is allergic to fish and it is possible she was exposed to it in the restaurant. Patient denies any dizziness, lightheadedness, abdominal pain, nausea, vomiting, fever, chills, blurry vision, double vision, loss of vision, chest pain, difficulty breathing, shortness of breath, back pain, night sweats, pain with urination, increased urinary frequency, increased urinary urgency, blood in her urine or stool, syncope or a near syncopal episode, recent trauma or falls, bowel incontinence, bladder incontinence, bowel retention, bladder retention, or any other complaints at this time. Onset (ago): minute(s) Severity: mild Relieving factors: none Exacerbating factors: none Associated symptoms: denies other symptoms Treatments prior to arrival: none Related Data Previous Rx's Medication Instructions Recorded albuterol sulfate 90 mcg/actuation 2 puff inhalation RQ4H PRN short 11/01/23 aerosol inhaler (Ventolin HFA) of breath 30 days #1 inhaler benztropine 0.5 mg tablet 0.5 mg PO BEDTIME 30 days #30 tabs 11/01/23 clonidine HCl 0.1 mg tablet 0.1 mg PO BID PRN Anxiety 30 days 11/01/23 #60 tabs haloperidol 10 mg tablet 10 mg PO BEDTIME 30 days #30 tabs 11/01/23 haloperidol decanoate 100 mg/mL 100 mg IM Q4W 28 days #1 mL 11/01/23 intramuscular solution (Haldol Decanoate) metformin 1,000 mg tablet 1,000 mg PO BID 30 days #60 tabs 11/01/23 nystatin 100,000 unit/gram topical 1 appl topical BID 30 days #15 11/01/23 cream grams propranolol 10 mg tablet 10 mg PO BID 30 days #60 tabs 11/01/23 Allergies Allergy/AdvReac Type Severity Reaction Status Date / Time clotrimazole Allergy Severe Rash Verified 11/01/23 17:18 olanzapine Allergy Muscle Verified 11/01/23 17:18 cramps seafood Allergy Anaphylaxis Verified 11/01/23 17:23 Review of Systems Constitutional: Constitutional: Reports no additional constitutional complaints, Denies chills, Denies fever(s) and Denies night sweats Eyes: Eyes: Reports no additional eye complaints, Denies blurry vision, Denies change in vision, Denies diplopia, Denies eye discharge, Denies loss of vision and Denies eye pain ENT: Denies dizziness Comments: throat swelling sensation Cardiovascular: Cardiovascular: Reports no additional cardiovascular complaints, Denies chest pain, Denies lightheadedness, Denies Loss of Consciousness and Denies dyspnea Respiratory: Respiratory: Reports no additional respiratory complaints and Denies dyspnea Gastrointestinal: Gastrointestinal: Reports no additional gastrointestinal complaints, Denies abdominal pain, Denies melena, Denies hematochezia, Denies ch andie in bowel habits, Denies change in stool character, Reports nausea and Denies vomiting Genitourinary: Genitourinary: Denies hematuria, Denies urinary frequency, Denies dysuria, Denies urinary incontinence, Denies urinary hesitancy and Denies urinary urgency Musculoskeletal: Musculoskeletal: Reports no additional musculoskeletal complaints, Denies numbness and Denies tingling Neurologic: Denies dizziness, Denies loss of vision, Denies numbness and Denies tingling Psychiatric: Psychiatric: Reports no additional psychiatric complaints Endocrine: Endocrine: Reports no additional endocrine complaints Hematologic/Lymphatic: Hematologic/Lymphatic: Reports no additional hematologic/lymphatic complaints Allergic/Immunologic: Allergic/Immunologic: Reports no additional allergic/immunologic complaints [facility] Past Medical History Attestation statement: The following information was validated with the patient. Source: old records reviewed and nursing notes reviewed Onset Date is defined in the Problem List Problems that require an onset date and time if occurred within 24 hrs of arrival to the ED Aortic Dissection and Rupture; Neurologic impairment; Cardiopulmonary Arrest; Endotracheal Intubation; Insertion or Replacement of Mechanical Circulatory Assist Device Medical History Delusional disorder Social History Social History Household Members: Other Household Members Other:: [facility] Housing: Other Housing Other:: [facility] Do you presently have visiting nurse or other home services: No Patient Tobacco Use Status: Never used Tobacco e-Cigarette/Vaping Use: Never Used Second Hand Smoke Exposure: No Advance Directives: No Advance Directives Information Provided: No service: No Sexual orientation: Lesbian/Ponce/Homosexual Physical Exam ED Vital Signs: Vital Signs - 24 hr 11/01/23 17:18 Temperature 98.4 F Pulse Rate 97 Respiratory Rate 16 Blood Pressure 121/59 L Pulse Oximetry 95 Oxygen Delivery Method Room Air BMI result Body Mass Index 41.6 Const General: cooperative, no acute distress, alert and awake Nutritional Appearance: well nourished Orientation/consciousness: patient oriented x3 Limitations: no limitations HENMT Head: Yes normal to inspection and Yes atraumatic Ears: hearing grossly normal bilaterally and external ears normal General nose exam: Normal external nose present, no nasal discharge noted and no epistaxis Face and sinus: Yes normal facial exam, No abrasion and No laceration Mouth: Normal oral and palatal mucosa present, no drooling and no muffled voice Eyes General: appearance normal, both eyes and all related structures Periorbital: periorbital findings normal Eyelids: Yes eyelids normal Conjunctivae: conjunctivae normal Pupils: Equal, round and reactive pupils present EOM: EOMs intact bilaterally Neck Neck: Yes normal visual inspection, Yes full ROM and Yes no lymphadenopathy Chest Chest palpation & inspection: normal inspection of the chest Resp Effort & Inspection: normal respiratory effort and able to speak in complete sentences GI Inspection: Yes normal to inspection Neuro General: patient oriented x3 and moves all extremities Cranial nerves: Yes Equal, round and reactive pupils present Cognition (Neuro): normal cognition Motor exam (neuro): 5/5 motor strength present throughout Sensory Exam: Normal double simultaneous stimulation for sensation Coordination: [id number] test normal Extrem General: Yes normal to inspection, Yes full ROM and Yes capillary refill normal Psych Appearance: grossly normal Mental Status: mental status grossly normal Affect: normal affect Attitude: cooperative Thought process: Normal thought process present Thought content: Normal thought content present Insight: Good insight present (Psych) Course Course Course Narrative: This is an RME: Additional HPI, ROS, PE not included below will be deferred to primary provider. Patient is a 28-year-old female who presents emergency department reporting at 16:30 she suddenly developed nausea then back of throat felt funny , felt swollen, then became painful. Recent cough/ sneezing. Mild SOB. She denies any known sick contacts, however she was discharged today from an inpatient psych stay here for 3 months, she states that she went to a restaurant after her discharge which is when her symptoms suddenly began. She states that she is deathly allergic to ?a fish? denies any known contact to seafood. Speaking clear full sentences, LSCTA, no angioedema. Plan: viral testing, strep A, Medications Administered Discontinued Medications Generic Name Dose Route Start Last Admin Trade Name Len PRN Reason Stop Dose Admin Diphenhydramine HCl 25 mg 11/01/23 17:53 11/01/23 18:02 Diphenhydramine Hcl 25 Mg Capsule PO 11/01/23 17:54 25 mg ONCE ONE Administration Medical Decision Making Medical Decision Making [facility] Narrative: Patient is a 28 year old assigned female at with a history of bipolar disorder presenting to the emergency department today with nausea and a swollen throat sensation. Patient's physical exam was unremarkable. Patient's COVID-19, strep, and influenza swabs were negative. Patient's EKG was unremarkable. I explained my physical exam findings as well as all test results to the patient. I answered all questions asked by the patient. I stressed the importance of the patient taking her medication as prescribed. I stressed the importance of the patient following up with her primary care provider. I stressed the importance of the patient returning to the emergency department immediately if her symptoms were to worsen or if she were to develop any dizziness, shortness of breath, difficulty breathing, chest pain, blurry vision, loss of vision, nausea, vomiting, abdominal pain, fever, chills, back pain, or any other complaints. Patient verbalized agreement and understanding with this treatment plan and discharge. Differential Diagnosis Differential Diagnoses: The differential diagnosis associated with the presentation includes Nausea COVID-19 Influenza Allergic reaction Admission/Observation Consideration of admission/observation: Escalation of care including admission/observation considered Patient would have been admitted to the hospital had her work up had any findings where hospital admission was appropriate and her clinical presentation warranted hospital admission. Lab Data [facility] Lab Attestation statement: I reviewed the patient's lab results. My interpretation of these results are in the [facility] Rationale portion of this note. Labs: Lab Results 11/01/23 Range/Units 17:51 COVID-19 ([facility]) Negative (Negative) COVID-19 Clin Com See Note Influenza Type A ([facility]) Negative (Negative) Influenza Type B ([facility]) Negative (Negative) Influenza A & B Note See Note S. pyogenes GrpA [facility]ANA Negative (Negative) Independent Interpretation I performed an independent interpretation of an: EKG Interpretation: Vent. Rate: 090 BPM Atrial Rate: 090 BPM P-R Int: 142 ms QRS Dur: 070 ms QT Int: 352 ms P-R-T Axes: 039 027 042 degrees QTc Int: 430 ms Normal sinus rhythm Normal ECG When compared with ECG of 18-OCT-2023 15:11, No significant change was found DD/ [id number] Discharge Plan Discharge Clinical Impression: Allergic reaction Patient Disposition: Home, Self-Care Instructions: General Allergic Reaction (ED) Additional Instructions: Follow up with your primary care provider. Return to the emergency department immediately if your symptoms worsen or if you develop any dizziness, shortness of breath, difficulty breathing, chest pain, blurry vision, loss of vision, damari sea, vomiting, abdominal pain, fever, chills, back pain, or any other complaints. Prescriptions: No Action nystatin 100,000 unit/gram Cream 1 appl topical BID 30 Days Qty: 15 0RF Protocol: Apply to: Apply to: Bilateral armpits benztropine 0.5 mg Tablet 0.5 mg PO BEDTIME 30 Days Qty: 30 0RF haloperidol 10 mg tablet 10 mg PO BEDTIME 30 Days Qty: 30 0RF haloperidol decanoate [Haldol Decanoate] 100 mg/mL solution 100 mg IM Q4W 28 Days Qty: 1 0RF Rx Instructions: IM due 11/15/2023 clonidine HCl 0.1 mg tablet 0.1 mg PO BID PRN (Reason: Anxiety) 30 Days Qty: 60 0RF propranolol 10 mg tablet 10 mg PO BID 30 Days Qty: 60 0RF metformin 1,000 mg tablet 1,000 mg PO BID 30 Days Qty: 60 0RF albuterol sulfate [Ventolin HFA] 90 mcg/actuation Hfa Aerosol Inhaler 2 puff inhalation RQ4H PRN (Reason: short of breath) 30 Days Qty: 1 0RF Referrals: [facility] [place] [place] [facility] Medicine [Provider Group] (Call to establish and follow up with a primary care provider. If you already have a primary care provider, please follow up with them.) [facility] [Provider Group] (Call to establish and follow up with a primary care provider. If you already have a primary care provider, please follow up with them.) [facility] [Provider Group] (Call to establish and follow up with a primary care provider. If you already have a primary care provider, please fo llow up with them.) Interventions: ED Discharge Assessment Last Done: 11/01/23 18:03 Discharge Date/Time: 11/01/23 18:04 Print Language: Ukrainian
--- NOTE | 2023-11-01 17:51 | PC.NURSE ---
Provider to bedside for rprijamesy eval.
--- NOTE | 2023-11-01 17:57 | PC.NURSE ---
Evaluated by PA cleared for ca home.
[2023-11-01] MEDS: diphenhydrAMINE HCL 25 MG CAPSULE PO (18:02)
[2023-11-01 18:13] LABS: IDNOW Serial# 08D9AD1C; Strep A Nucleic Acid Negative (Negative)
[2023-11-01 18:17] LABS: COVID-19 Test Negative (Negative); IDNOW Serial# 58CA691E
[2023-11-01 18:37] LABS: IDNOW Serial# 16C4AD1C; Influenza A Negative (Negative)
[2023-11-01 18:38] LABS: Influenza B2 Negative (Negative)
== END 2023-11-01 18:04 | disposition home or self-care (01) ==
PROVIDERS: Nurse Practitioner Family; Emergency Provider Emergency Medicine Emergency Medical Services
DX: R11.2 Nausea with vomiting, unspecified (principal); R07.89 Other chest pain; T78.1XXA Other adverse food reactions, not elsewhere classified, initial encounter; T78.49XA Other allergy, initial encounter; X58.XXXA Exposure to other specified factors, initial encounter; Z79.899 Other long term (current) 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; Z11.52 Encounter for screening for COVID-19; Z20.828 Contact with and (suspected) exposure to other viral communicable diseases
CPT/HCPCS: 87502; 87635; 87651; 93005; 99283

== ENCOUNTER → 2023-11-01 16:39 | Outpatient (BNV) | payer MEDICAID, SELFPAY | PROVIDERS: Emergency Provider Emergency Medicine Emergency Medical Services; Visit Provider Internal Medicine Cardiovascular Disease | DX: R11.0 Nausea (principal); T78.40XA Allergy, unspecified, initial encounter | CPT/HCPCS: 93010 ==

== ENCOUNTER 2024-11-18 14:48 | Outpatient (REF) | payer MEDICAID, SELFPAY ==
[2024-11-18 14:59] LABS: MANUAL DIFF FLAG NO
[2024-11-18 15:08] LABS: Basophils Percent Auto 0.4 % (0-2); Eosinophils Absolute Auto 0.2 X10*3/uL (0.0-0.4); Eosinophils Percent Auto 2.6 % (0-4); Hematocrit 39.1 % (37.0-47.0); Hemoglobin 13.5 g/dl (12.0-16.0); Imm Gran Abs Auto 0.02 X10*3/uL (0.00-0.03); Imm Gran Pct Auto 0.3 % (0.0-0.4); Lymphocytes Absolute Auto 1.8 X10*3/uL (1.2-4.9); Lymphocytes Percent Auto 23.2 % (20-40); Mean Corpuscular HGB Conc 34.5 g/dl (31.0-35.0); Mean Corpuscular Hemoglobin 28.6 pg (27.0-33.0); Mean Corpuscular Volume 82.8 fL (80.0-98.0); Mean Platelet Volume 10.9 fL (9.4-12.3); Monocytes Absolute Auto 0.6 X10*3/uL (0.1-1.2); Monocytes Percent Auto 7.3 % (2-11); Neutrophils Absolute Auto 5.2 x10*3/uL (2.0-8.3); Neutrophils Percent Auto 66.2 % (45-73); Platelet Count 241 X10*3/uL (160-400); Red Blood Count 4.72 X10*6/uL (4.20-5.50); Red Cell Distribution Width 13.3 % (11.0-16.0); White Blood Count 7.8 X10*3/uL (4.8-10.8)
== END 2024-11-18 14:49 | disposition home or self-care (01) ==
LOC: HO.LAB 14:48
PROVIDERS: PCP Psychiatry & Neurology Psychiatry; Visit Provider Psychiatry & Neurology Psychiatry
DX: Z79.899 Other long term (current) 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 (principal)
CPT/HCPCS: 36415; 85025

== ENCOUNTER 2024-12-23 10:36 | Outpatient (REF) | payer MEDICAID, SELFPAY ==
[2024-12-23 10:52] LABS: MANUAL DIFF FLAG NO
[2024-12-23 11:51] LABS: Basophils Percent Auto 0.5 % (0-2); Eosinophils Absolute Auto 0.2 X10*3/uL (0.0-0.4); Eosinophils Percent Auto 2.6 % (0-4); Hematocrit 40.4 % (37.0-47.0); Hemoglobin 13.8 g/dl (12.0-16.0); Imm Gran Abs Auto 0.04 X10*3/uL (0.00-0.03); Imm Gran Pct Auto 0.6 % (0.0-0.4); Lymphocytes Percent Auto 30.5 % (20-40); Mean Corpuscular HGB Conc 34.2 g/dl (31.0-35.0); Mean Corpuscular Hemoglobin 28.3 pg (27.0-33.0); Mean Platelet Volume 11.4 fL (9.4-12.3); Monocytes Absolute Auto 0.4 X10*3/uL (0.1-1.2); Monocytes Percent Auto 6.6 % (2-11); Neutrophils Absolute Auto 3.9 x10*3/uL (2.0-8.3); Neutrophils Percent Auto 59.2 % (45-73); Platelet Count 251 X10*3/uL (160-400); Red Blood Count 4.87 X10*6/uL (4.20-5.50); Red Cell Distribution Width 13.6 % (11.0-16.0); White Blood Count 6.7 X10*3/uL (4.8-10.8)
== END 2024-12-23 10:37 | disposition home or self-care (01) ==
LOC: HO.LABR 10:36
PROVIDERS: PCP Psychiatry & Neurology Psychiatry
DX: Z79.899 Other long term (current) 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 (principal)
CPT/HCPCS: 36415; 85025

== ENCOUNTER 2024-12-28 16:06 | Emergency (ER) | payer MEDICAID, SELFPAY ==
--- NOTE | ~2024-12-28 | XR_ITS ---
CLINICAL HISTORY: pain trauma 3 view left ankle Comparison: None Findings: No acute fracture. No dislocation. No significant arthritic change or erosions. No ankle effusion. Lateral soft tissue swelling. No radiopaque foreign body. IMPRESSION: 1. Lateral soft tissue swelling with no acute fracture or dislocation. This document has been electronically signed by: Dionne Carrasquillo MD on 12/28/2024 17:25:14
[2024-12-28 16:27] VITALS: BP 140/98; PULSE 100; RESP 16; TEMP 37; O2SAT 96; BMI 42.5
--- NOTE | 2024-12-28 16:34 | ED.GENADULT ---
HPI - General Adult General Chief complaint: Extremity Injury, Lower Stated complaint: rolled ankle swelling on outside 11/30 pain Time Seen by Provider: 12/28/24 16:27 Source: patient Limitations: no limitations History of Present Illness ED Provider: Alma Woo PA-C HPI narrative: 29 year old female with a history of schizoaffective disorder and bipolar who presents with left ankle pain. Patient states she was walking outside she stumbled rolling her left ankle. Now with the pain. Patient was still ambulatory. Related Data Previous Rx's ?Medication ?Instructions ?Recorded albuterol sulfate 90 mcg/actuation 2 puff inhalation RQ4H PRN short 11/01/23 aerosol inhaler (Ventolin HFA) of breath 30 days #1 inhaler benztropine 0.5 mg tablet 0.5 mg PO BEDTIME 30 days #30 tabs 11/01/23 clonidine HCl 0.1 mg tablet 0.1 mg PO BID PRN Anxiety 30 days 11/01/23 #60 tabs haloperidol 10 mg tablet 10 mg PO BEDTIME 30 days #30 tabs 11/01/23 haloperidol decanoate 100 mg/mL 100 mg IM Q4W 28 days #1 mL 11/01/23 intramuscular solution (Haldol Decanoate) metformin 1,000 mg tablet 1,000 mg PO BID 30 days #60 tabs 11/01/23 nystatin 100,000 unit/gram topical 1 appl topical BID 30 days #15 11/01/23 cream grams propranolol 10 mg tablet 10 mg PO BID 30 days #60 tabs 11/01/23 Allergies Allergy/AdvReac Type Severity Reaction Status Date / Time clotrimazole Allergy Severe Rash Verified 12/28/24 16:33 olanzapine Allergy Muscle Verified 12/28/24 16:33 cramps seafood Allergy Anaphylaxis Verified 12/28/24 16:33 Review of Systems Review of Systems: Yes all other systems are reviewed and are negative Musculoskeletal: Musculoskeletal: Reports arthralgias and Denies joint swelling PMFSH Past Medical History Attestation statement: The following information was validated with the patient. Medical History Delusional disorder Social History Social History Household Members: Other Household Members Other:: [facility] Housing: Other Housing Other:: [facility] Do you presently have visiting nurse or other home services: No Patient Tobacco Use Status: Never used Tobacco e-Cigarette/Vaping Use: Never Used Second Hand Smoke Exposure: No service: No Sexual orientation: Lesbian/Ponce/Homosexual Physical Exam ED Vital Signs: Vital Signs - 24 hr 12/28/24 16:27 Temperature 98.6 F Pulse Rate 100 Respiratory Rate 16 Blood Pressure 140/98 H Pulse Oximetry 96 Oxygen Delivery Method Room Air BMI result Body Mass Index 42.5 Const Other: Alert Orientation/consciousness: patient oriented x3 Resp Effort & Inspection: normal respiratory effort Cardio Other: Normal peripheral perfusion Skin Other: Warm dry no rash Neuro General: patient oriented x3, gait normal, no focal motor deficits and CN's II-XI intact bilaterally Extrem Other: No swelling no deformity able to flex and extend from the ankle Psych Other: Cooperative Medications Administered Discontinued Medications Generic Name Dose Route Start Last Admin Trade Name Freq PRN Reason Stop Dose Admin Acetaminophen 975 mg 12/28/24 16:31 12/28/24 17:09 Acetaminophen 325 Mg Tablet PO 12/28/24 16:32 975 mg ONCE ONE Administration Ibuprofen 600 mg 12/28/24 16:31 12/28/24 17:09 Ibuprofen 600 Mg Tablet PO 12/28/24 16:32 600 mg ONCE ONE Administration Medical Decision Making Medical Decision Making MDM Narrative: 29 year old female with a history of schizoaffective disorder and bipolar who presents with left ankle pain. Patient states she was walking outside she stumbled rolling her left ankle. Now with the pain. Patient was still ambulatory. Problem: Psychiatric illness History: Per patient I have considered the following differential diagnoses: Fracture, dislocation, sprain Plan: We will order an x-ray giving ibuprofen and Tylenol, I have low suspicion for any injury beyond a subtle sprain I have independently reviewed the following tests: X-ray left ankle:IMPRESSION: 1. Lateral soft tissue swelling with no acute fracture or dislocation. Discharge Plan Discharge Clinical Impression: Left ankle sprain Patient Disposition: Home, Self-Care Instructions: R.I.C.E. Treatment (ED), Sprain (ED) Additional Instructions: The x-ray was normal for fracture or dislocation, you have a sprain. See home care instructions. Use the crutches as needed to ambulate. I would purchase a compression sleeve to help support the ankle joint while you are treating your sprain. Follow up with your primary care provider. Prescriptions: No Action nystatin 100,000 unit/gram Cream 1 appl topical BID 30 Days Qty: 15 0RF Protocol: Apply to: Apply to: Bilateral armpits benztropine 0.5 mg Tablet 0.5 mg PO BEDTIME 30 Days Qty: 30 0RF haloperidol 10 mg tablet 10 mg PO BEDTIME 30 Days Qty: 30 0RF haloperidol decanoate [Haldol Decanoate] 100 mg/mL solution 100 mg IM Q4W 28 Days Qty: 1 0RF Rx Instructions: IM due 11/15/2023 clonidine HCl 0.1 mg tablet 0.1 mg PO BID PRN (Reason: Anxiety) 30 Days Qty: 60 0RF propranolol 10 mg tablet 10 mg PO BID 30 Days Qty: 60 0RF metformin 1,000 mg tablet 1,000 mg PO BID 30 Days Qty: 60 0RF albuterol sulfate [Ventolin HFA] 90 mcg/actuation Hfa Aerosol Inhaler 2 puff inhalation RQ4H PRN (Reason: short of breath) 30 Days Qty: 1 0RF Print Language: Citizen [place]
--- NOTE | 2024-12-28 17:00 | PC.NURSE ---
medication not administered as pt refused. pt educated that medication administration would be effective to help w/ pain in left ankle/foot but still refused.
--- NOTE | 2024-12-28 18:04 | PC.NURSE ---
crutch training not provided to patient as pt was noted to have left prior to receiving training/discharge paperwork. provider notified/aware.
[2024-12-28 18:11] VITALS: BP 140/98; PULSE 100; RESP 16; TEMP 37; O2SAT 96
== END 2024-12-28 18:11 | disposition home or self-care (01) ==
PROVIDERS: Emergency Provider Emergency Medicine
DX: S93.402A Sprain of unspecified ligament of left ankle, initial encounter (principal); X50.1XXA Overexertion from prolonged static or awkward postures, initial encounter; Y93.01 Activity, walking, marching and hiking; Y92.480 Sidewalk as the place of occurrence of the external cause; Y99.9 Unspecified external cause status
CPT/HCPCS: 73610; 99283; 99284

== ENCOUNTER → 2024-12-28 16:31 | Outpatient (BNV) | payer MEDICAID, SELFPAY | PROVIDERS: Emergency Provider Emergency Medicine; Visit Provider Specialist | DX: R22.42 Localized swelling, mass and lump, left lower limb (principal) | CPT/HCPCS: 73610 ==

== ENCOUNTER 2025-07-12 08:09 | Outpatient (AMB) | payer OTHER, MEDICARE, MEDICAID, SELFPAY ==
--- NOTE | 2025-07-12 08:12 | MHC.PC.OV ---
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 Transferring care from Mala Mckay ([facility]). Medical records have been requested and have not received. Locomotive Crane Operator Required: No Food Trades Assistants: Not Required per policy Accompanied by: Self / Same As Patient Allergies clotrimazole Allergy (Severe, Verified 07/12/25 09:00) Rash cat dander (cats) Allergy (Intermediate, Verified 07/12/25 09:00) Eye Swelling house dust Allergy (Intermediate, Verified 07/12/25 09:00) Sneezing olanzapine Allergy (Verified 07/12/25 09:00) Muscle cramps seafood Allergy (Verified 07/12/25 09:00) Anaphylaxis Medication List - Last Reconciled 07/12/25 by Kristyn Mckeon PA-C albuterol sulfate 90 mcg/actuation (Ventolin HFA) 2 puffs inhalation RQ4H PRN 30 days atomoxetine 40 mg PO QAM atorvastatin (Lipitor) 10 mg PO DAILY atropine 1% drps ophthalmic (eye) clonidine HCl 0.1 mg PO BID PRN 30 days metformin 1,000 mg PO BID 30 days sennosides-docusate sodium 8.6-50 mg (Senna Plus) 1 tab-cap PO BEDTIME Tobacco use date assessed: 07/12/25 Dental Screening Dental Screen Date: 07/12/25 Did you have a dental visit in the last 12 months?: Yes Did you have a dental problem in the last 6 months where you did not have access to dental care?: No Was dental information given to patient?: Patient has dentist HPI 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 Presenting with diabetes mellitus management. The patient has a history of diabetes mellitus with a recent hemoglobin A1c of 11.2% indicating poor glycemic control. She is currently on metformin 1000 mg twice daily, which is the maximum dose, and there is a need to add another medication to improve control. The patient prefers to avoid insulin injections and is considering Jardiance as an alternative. The patient has a history of anxiety disorder and uses clonidine as needed for management. The patient is on atomoxetine (Strattera) for ADHD management. The patient has a history of depression, which is currently managed without specific medication adjustments discussed. The patient uses Pepcid for management of GERD, which has not been severe recently. She was also diagnosed with delusional disorder but does not feel this is an accurate diagnosis. She is being treated with Clozaril and is working with her psychiatrist to adjust her medications that she does not want to take this medication. She does report feeling microscopic spiders in her teeth after the consumption of an orange. [facility] Medical History Delusional disorder Delusional disorder Surgical History History of lumpectomy History of tonsillectomy and adenoidectomy History of surgery of head Family History Other Family history of breast cancer Mental health disorder Social History Household Members: Other Household Members Other:: [facility] Housing: Other Housing Other:: [facility] Do you presently have visiting nurse or other home services: No Patient Tobacco Use Status: Never used Tobacco e-Cigarette/Vaping Use: Never Used Second Hand Smoke Exposure: No service: No Current occupational status: disabled Sexual orientation: Lesbian/Ponce/Homosexual Cognitive needs: No Hearing needs: No Vision needs: Yes (Glasses) Questionnaire PHQ-9 Over the last 2 weeks, how often have you been bothered by any of the following problems? 1. Little interest or pleasure in doing things: more than half the days 2. Feeling down, depressed, or hopeless: more than half the days 3. Trouble falling or staying asleep, or sleeping too much: nearly every day 4. Feeling tired or having little energy: nearly every day 5. Poor appetite or overeating: several days 6. Feeling bad about yourself - or that you are a failure or have let yourself or your family down: several days 7. Trouble concentrating on things, such as reading the newspaper or watching television: several days 8. Moving or speaking so slowly that other people could have noticed. Or the opposite - being so fidgety or restless that you have been moving around a lot more than usual: several days 9. Thoughts that you would be better off or of hurting yourself in some way: several days Total score: 15 Depression Screening Interpretation: Positive Depression Screening Follow-up: Existing condition and In treatment Depression Screening Done: Yes 89023 - PHQ-9 Billing: Yes Source: Developed by Drs. Suresh Cisse, Barbara Nguyen, Roscoe Calle and colleagues, with an educational carl from [employer]. Thrive Questionnaire Date Thrive assessed: 07/12/25 I am a: Patient What is your living situation today?: I have a steady place to live Within the past 12 months, did the food you bought not last and you didn't have the money to get more?: Never true Within the past 12 months, did you worry whether your food would run out before you got money to buy more?: Never true Do you have trouble paying for medicines?: No Do you have trouble getting transportation to medical appointments?: No Do you have trouble paying your heating and electricity bill?: No Do you have trouble taking care of your child, family member or friend?: No Do you have trouble with day-to-day activities such as bathing, preparing meals, shopping, managing finances, etc.?: No Are you currently unemployed and looking for a job?: No Are you interested in more education?: No Please select the resources that you would like help with: None Currently or been in a relationship where the following occur: No concerns reported THRIVE Score: 0 AUDIT C Alcohol Use Questionnaire (AUDIT-C) 1. How often do you have a drink containing alcohol?: Never Total Score: 0 BERTA-7 AMB Questionnaire BERTA-7 Date BERTA - 7 assessed: 07/12/25 Feeling nervous, anxious, or on edge: 1 = Several days Not being able to stop or control worryin = Several days Worrying too much about different things: 1 = Several days Trouble relaxin = Several days Being so restless that it is hard to sit still: 1 = Several days Becoming easily annoyed or irritable: 0 = Not at all Feeling afraid as if something awful might happen: 1 = Several days Total BERTA-7 score (0-4 normal; 5-9 mild; 10-14 moderate; 15-21 severe): 6 Source: Developed by Drs. Suresh Cisse, Barbara Nguyen, Roscoe Calle and colleagues, with an educational carl from [employer]. BERTA-7 Assessment Billing BERTA-7 Assessment Tool: BERTA-7 Assessment 18793 Review of Systems Const Denies body aches, Denies fatigue, Denies fever(s), Denies frequent falls, Denies headache(s) and Denies weakness Eyes Reports no additional complaints and Denies change in vision ENT Denies dysphagia, Denies dizziness, Denies facial pain, Denies headache(s) and Denies nasal congestion Card Denies chest pain, Denies syncope, Denies irregular heart rhythm, Denies leg edema, Denies lightheadedness and Denies dyspnea Resp Denies dyspnea GI Denies dysphagia, Denies nausea and Denies vomiting Denies urinary frequency, Denies dysuria, Denies urinary hesitancy and Denies urinary urgency Musc Denies back pain and Denies myalgias Skin/Breast Reports system reviewed and no additional complaints, except as documented Neuro Denies dizziness, Denies syncope, Denies frequent falls, Denies headache(s) and Denies weakness Psych Reports no additional complaints Endo Denies fatigue Physical exam (Primary Care) Vital Signs: Last Vital Signs Temp 97.1 F 07/12/25 08:14 Pulse 91 07/12/25 08:14 BP 122/60 07/12/25 08:14 Pulse Ox 97 07/12/25 08:14 Oxygen Delivery Method Room Air 07/12/25 08:14 BMI result Body Mass Index 40.4 Tobacco/Smoking Status: Tobacco use Status Tobacco use date assessed 07/12/25 07/12/25 08:28 Patient Tobacco Use Status Never used Tobacco 07/12/25 08:28 e-Cigarette/Vaping Use Never Used 07/12/25 08:28 PHQ-9: PHQ-9 Score PHQ-9: Total score 15 07/12/25 09:08 Depression Screening Interpretation: Positive Depression Screening Follow-up: Existing condition and In treatment Thrive Assessment: Date of Thrive Assessment Date Thrive assessed 07/12/25 07/12/25 08:28 Currently or been in a relationship where the following occur: No concerns reported Const General: cooperative, healthy appearing, comfortable and no acute distress Orientation/consciousness: patient oriented x3 HENMT Head: Yes normocephalic Ears: hearing grossly normal bilaterally General nose exam: Normal external nose present Eyes General: appearance normal, both eyes and all related structures Conjunctivae: conjunctivae normal Neck Neck: Yes full ROM and Yes no lymphadenopathy Resp Effort & Inspection: normal respiratory effort Auscultation: clear to auscultation bilaterally, no crackles, no rales, no rhonchi and no wheezes Cardio Rate: regular rate Rhythm: regular rhythm Skin General skin exam: no rashes or lesions noted Neuro General: patient oriented x3 Gait exam (Neuro): Normal gait present Extrem General: Yes normal to inspection, Yes full ROM and No edema Psych Affect: normal affect Attitude: cooperative Insight: Good insight present (Psych) Judgement: Good judgement present (Psych) Results AMB Hemoglobin A1c AMB Hemoglobin A1c 11.2 % Last Edit by WILFRIDO Yanes on 07/12/25 08:58 Results Reviewed Results Reviewed: Laboratory Last Values Hgb A1c (Clinic) 11.2 % (4.0-6.0) H 07/12/25 08:47 Coding Level of Care Code New Pt Level 4 (60517) Diagnoses Diabetes mellitus E11.9 Hypercholesterolemia E78.00 Anxiety F41.9 Depression F32.A ADHD F90.9 Fatty liver disease, nonalcoholic K76.0 GERD (gastroesophageal reflux disease) K21.9 PTSD (post-traumatic stress disorder) F43.10 Delusional disorder F22 Asthma J45.909 Additional Codes BERTA-7 Assessment Billing - BERTA-7 Assessment Tool: BERTA-7 Assessment 98716 ([id number]) PHQ-9 - 79578 - PHQ-9 Billing: Yes ([id number]) Assessment & Plan Assessment & Plan (1) Diabetes mellitus: Code(s): E11.9 - Type 2 diabetes mellitus without complications Category: Medical Plan: Decrease the amount of carbohydrates such as pasta, bread, rice, and potatoes and limit the amount of sweets. Although fruits are generally healthy they should be eaten in moderation as they are still high in sugar. Hemoglobin A1c goal of less than 7%. She does see an eye doctor yearly. She is on Metformin 1,000mg BID and A1c in the clinic today 11.2%. She is refusing injections at this time and plan to trial Jardiance 10mg. (2) Hypercholesterolemia: Code(s): E78.00 - Pure hypercholesterolemia, unspecified Category: Medical Plan: Avoid foods that are high in cholesterol such as red meat, fried foods, eggs and baked goods. Triglyceride goal of less than 150 and LDL goal of less than 100. Continue on Atorvastatin. Repeat blood work ordered. (3) Anxiety: Comment: [facility]D Code(s): F41.9 - Anxiety disorder, unspecified Category: Medical Plan: The patient manages anxiety with clonidine as needed. No changes to the current management plan were discussed during the visit. (4) Depression: Comment: [facility] [place] 2[place] Ashley Code(s): F32.A - Depression, unspecified Category: Medical Plan: The patient has a history of depression, with no specific medication adjustments discussed during the visit. The condition is currently managed without additional interventions. (5) ADHD: Comment: [facility] [place] 2] Code(s): F90.9 - Attention-deficit hyperactivity disorder, unspecified type Category: Medical Plan: On strattera and feels this is beneficial. (6) Fatty liver disease, nonalcoholic: Code(s): K76.0 - Fatty (change of) liver, not elsewhere classified Category: Medical Plan: Healthy diet and regular exercise is encouraged. (7) GERD (gastroesophageal reflux disease): Code(s): K21.9 - Gastro-esophageal reflux disease without esophagitis Category: Medical Plan: Avoid trigger foods such as citrus, tomato products, soda, caffeine, spicy foods and other foods that may be irritating to your stomach. Avoid laying flat 3-4 hours after eating and elevate the head of the bed 30 degrees to prevent acid from moving into the esophagus. Continue on pepcid prn (8) PTSD (post-traumatic stress disorder): Code(s): F43.10 - Post-traumatic stress disorder, unspecified Category: Medical Plan: She will continue to follow with her counselor and psychiatrist for management of this condition (9) Delusional disorder: Code(s): F22 - Delusional disorders Category: Medical Plan: Patient denies any symptoms or feelings of delusional disorder. She is currently following with her psychiatrist and counselor as CHD with his current diagnosis and being treated with Clozaril. She is not feel this is an accurate diagnosis and she will continue to follow with her psychiatrist for further treatment. (10) Asthma: Code(s): J45.909 - Unspecified asthma, uncomplicated Category: Medical Plan: Asthma currently controlled on present medications. Continue on albuterol as needed.? Avoid triggers such as allergies. Plan This note was constructed using voice recognition software. While every effort has been made to ensure accuracy and associate chemist, still areas may have been included sometimes these areas may affect the content or meeting of the given symptoms. Total time spent caring for the patient today was 30 minutes. This includes time spent before the visit reviewing the chart, time spent during the visit, and time spent after the visit and documentation. Patient was informed and verbally consented to the use of an ambient scribe for clinic note documentation during this visit. Orders: Orders AMB Hemoglobin A1c Today Z13.9 - Encounter for screening, unspecified Lipid Panel Today E78.00 - Pure hypercholesterolemia, unspecified Comprehensive Met. Panel Today K76.0 - Fatty (change of) liver, not elsewhere classified, Z00.00 - Encounter for general adult medical examination without abnormal findings Complete Blood Count Auto Diff Today K76.0 - Fatty (change of) liver, not elsewhere classified, Z00.00 - Encounter for general adult medical examination without abnormal findings TSH reflex Free T4 Today Z13.29 - Encounter for screening for other suspected endocrine disorder Vitamin B12 and Folate Today Z13.21 - Encounter for screening for nutritional disorder Vitamin D 25-OH Total Today Z13.21 - Encounter for screening for nutritional disorder Microalbumin, Random (w Creat) Today E11.9 - Type 2 diabetes mellitus without complications Referrals Nurse Navigator Referral Z59.819 - Housing instability, housed unspecified Medications: New empagliflozin (Jardiance) 10 mg PO DAILY 90 tabs 0RF sennosides-docusate sodium 8.6-50 mg (Senna Plus) 1 tab-cap PO BEDTIME PRN Discontinued benztropine Discontinued Reason: Patient no longer taking 0.5 mg PO BEDTIME 30 days 30 tabs 0RF haloperidol Discontinued Reason: Patient no longer taking 10 mg PO BEDTIME 30 days 30 tabs 0RF haloperidol decanoate (Haldol Decanoate) IM due 11/15/2023 Discontinued Reason: Patient no longer taking 100 mg IM Q4W 28 days 1 mL 0RF nystatin Discontinued Reason: Patient no longer taking 1 appl See Protocol topical BID 30 days 15 grams 0RF propranolol Discontinued Reason: Patient no longer taking 10 mg PO BID 30 days 60 tabs 0RF
[2025-07-12 08:14] VITALS: BP 122/60; PULSE 91; TEMP 36.2; O2SAT 97; BMI 40.4
--- OUTSIDE RECORDS SUMMARY | 2025-07-12 09:01 | XMS_ITS | Encounter Summary ---
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 Social History Tobacco Use Types Packs/Day Years Used Date Smoking Tobacco: Never Assessed Comments Unknown Sex and Gender Information Value Date Recorded Sex Assigned at Not on file Legal Sex Unknown 03/08/2025 10:54 PM EDT Gender Identity Not on file Sexual Orientation Not on file documented as of this encounter Plan of Treatment Not on file documented as of this encounter Procedures Procedure Name Priority Date/Time Associated Diagnosis Comments CBC WITH AUTO DIFFERENTIAL Routine 07/06/2025 6:06 AM EDT Other intermediate (current) 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 CBC AND DIFFERENTIAL Routine 07/06/2025 6:06 AM EDT Other intermediate (current) 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 documented in this encounter Results * (ABNORMAL) CBC auto differential (07/06/2025 6:06 AM EDT) WBC 8.6 4.8 - 10.8 K/[facility] LAB HEMETOLOGY METHOD 07/06/2025 7:57 AM EDT [facility] RBC 4.00 3.80 - 5.50 M/[facility] LAB HEMETOLOGY METHOD 07/06/2025 7:57 AM [facility] LAB Hemoglobin 10.3(L) 12.0 - 18.0 g/dL LAB HEMETOLOGY METHOD 07/06/2025 7:57 AM [facility] LAB Hematocrit 32.3(L) 36.0 - 48.0 % LAB HEMETOLOGY METHOD 07/06/2025 7:57 AM [facility] LAB MCV 81.4 79.0 - 98.0 FL LAB HEMETOLOGY METHOD 07/06/2025 7:57 AM [facility] LAB MCH 25.9(L) 27.0 - 32.0 pcg LAB HEMETOLOGY METHOD 07/06/2025 7:57 AM [facility] LAB MCHC 31.9(L) 32.0 - 37.0 g/dL LAB HEMETOLOGY METHOD 07/06/2025 7:57 AM [facility] LAB RDW 13.5 11.0 - 15.0 % LAB HEMETOLOGY METHOD 07/06/2025 7:57 AM [facility] LAB Platelets 239 130 - 400 K/mcL LAB HEMETOLOGY METHOD 07/06/2025 7:57 AM [facility] LAB MPV 12.4(H) 7.0 - 11.0 FL LAB HEMETOLOGY METHOD 07/06/2025 7:57 AM [facility] LAB NRBC 0.0 <1.0 % LAB HEMETOLOGY METHOD 07/06/2025 7:57 AM [facility] LAB NRBC Absolute 0.00 <0.10 K/mcL LAB HEMETOLOGY METHOD 07/06/2025 7:57 AM [facility] LAB Neutrophils Relative 66.9 % LAB HEMETOLOGY METHOD 07/06/2025 7:57 AM [facility] LAB Lymphocytes Relative 23.1 % LAB HEMETOLOGY METHOD 07/06/2025 7:57 AM EDT [facility] LAB Monocytes Relative 5.5 % LAB H[facility]OLOGY [facility] Eosinophils Relative 3.2 % LAB HEMETOLOGY METHOD [facility]/06[facility]2025 7[facility] Basophils Relative 0.5 % LAB HEMETOLOGY METHOD 07/06/2025 7:57 AM EDT [facility] LAB Immature Granulocytes Relative 0.8 % LAB HEMETOLOGY METHOD 07/06/2025 7:57 AM EDT [facility] LAB Neutrophils Absolute 5.74 1.50 - 7.00 K/mcL LAB HEMETOLOGY METHOD 07/06/2025 7:57 AM [facility] LAB Lymphocytes Absolute 1.98 1.00 - 5.00 K/mcL LAB HEMETOLOGY METHOD 07/06/2025 7:57 [facility] Monocytes Absolute 0.47 0.20 - 1.00 K/mcL LAB HEMETOLOGY METHOD 07/06/2025 7:57 AM [facility] LAB Eosinophils Absolute 0.27 0.00 - 0.50 K/mcL LAB HEMETOLOGY METHOD 07/06/2025 7:57 [facility] Basophils Absolute 0.04 0.00 - 0.20 K/mcL LAB HEMETOLOGY METHOD 07/06/2025 7[facility]57 [facility] Immature Granulocytes Absolute 0.07(H) 0.00 - 0.03 K/mcL LAB HEMETOLOGY METHOD 07/06/2025 7:57 AM [facility] LAB Blood Venous blood specimen / Unknown Venipuncture / Unknown 07/06/2025 6:06 AM EDT 07/06/2025 7:41 AM EDT us Celina Handley NP LAB BLOOD ORDERABLES Final R esult [facility] [address] [place] [address], documented in this encounter Visit Diagnoses Diagnosis Other intermediate (current) 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 documented in this encounter Care Teams Lithographic Press Operator Apprentice Relationship Specialty Start Date End Date Celina Handley NP [address] [place] [phone] PCP - General 03/10/25 documented as of this encounter
--- OUTSIDE RECORDS SUMMARY | 2025-07-12 09:01 | XMS_ITS | Encounter Summary ---
Author Organization [employer] [facility] Address [address] [place] [address] Care Team Providers Care Qa Architect Name Role Phone Celina Handley NP Primary Care Provider Encounter Details Date Type Department Care Team (Late st Contact Info) Description 06/22/[address] 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 ([facility]) [facility] LAB RBC 3.80 3.80 - 5.50 M/[facility] LAB HEMETOLOGY METHOD 06/23/2025 8:16 AM [facility] LAB Hemoglobin 10.4(L) 12.0 - 18.0 g/dL LAB HEMETOLOGY METHOD 06/23/2025 8:16 AM [facility] LAB Hematocrit 31.7(L) 36.0 - 48.0 % LAB HEMETOLOGY METHOD 06/23/2025 8:16 AM [facility] LAB MCV 82.8 79.0 - 98.0 FL LAB HEMETOLOGY METHOD 06/23/2025 8:16 AM [facility] LAB MCH 27.2 27.0 - 32.0 pcg LAB HEMETOLOGY METHOD 06/23/2025 8:16 AM [facility] LAB MCHC 32.8 32.0 - 37.0 g/dL LAB HEMETOLOGY METHOD 06/23/2025 8:16 AM [facility] LAB RDW 13.1 11.0 - 15.0 % LAB HEMETOLOGY METHOD 06/23/2025 8:16 AM [facility] LAB Platelets 226 130 - 400 K/mcL LAB HEMETOLOGY METHOD 06/23/2025 8:16 AM [facility] LAB MPV 11.8(H) 7.0 - 11.0 FL LAB HEMETOLOGY METHOD 06/23/2025 8:16 AM [facility] LAB NRBC 0.0 <1.0 % LAB HEMETOLOGY METHOD 06/23/2025 8:16 AM [facility] LAB NRBC Absolute 0.00 <0.10 K/mcL LAB HEMETOLOGY METHOD 06/23/2025 8:16 AM [facility] LAB Neutrophils Relative 64.7 % LAB HEMETOLOGY METHOD 06/23/2025 8:16 AM [facility] LAB Lymphocytes Relative 23.8 % LAB HEMETOLOGY METHOD 06/23/2025 8:16 AM [facility] LAB Monocytes Relative 7.8 % LAB HEMETOLOGY METHOD 06/23/2025 8:16 AM EDT [facility] LAB Eosinophils Relative 2.6 % LAB HEMETOLOGY METHOD 06/23/2025 8:16 AM EDT [facility] LAB Basophils Relative 0.5 % LAB HEMETOLOGY METHOD 06/23/2025 8:16 AM EDT [facility] LAB Immature Granulocytes Relative 0.6 % LAB HEMETOLOGY METHOD 06/23/2025 8:16 AM EDT [facility] LAB Neutrophils Absolute 5.23 1.50 - 7.00 K/mcL LAB HEMETOLOGY METHOD 06/23/2025 8:16 AM EDT [facility] LAB Lymphocytes Absolute 1.92 1.00 - 5.00 K/mcL LAB HEMETOLOGY METHOD 06/23/2025 8:16 AM EDT [facility] LAB Monocytes Absolute 0.63 0.20 - 1.00 K/mcL LAB HEMETOLOGY METHOD 06/23/2025 8:16 AM EDT [facility] LAB Eosinophils Absolute 0.21 0.00 - 0.50 K/mcL LAB HEMETOLOGY METHOD 06/23/2025 8:16 AM EDT [facility] LAB Basophils Absolute 0.04 0.00 - 0.20 K/mcL LAB HEMETOLOGY METHOD 06/23/2025 8:16 AM EDT [facility] LAB Immature Granulocytes Absolute 0.05(H) 0.00 - 0.03 K/mcL LAB HEMETOLOGY METHOD 06/23/2025 8:16 AM EDT [facility] LAB Blood Venous blood specimen / Unknown Venipuncture / Unknown 06/23/2025 5:40 AM EDT 06/23/2025 7:57 AM EDT us Celina Handley NP LAB BLOOD ORDERABLES Final R esult 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
--- OUTSIDE RECORDS SUMMARY | 2025-07-12 09:01 | XMS_ITS | Encounter Summary ---
Author Organization [employer] [facility] Address [address] [place] [address] Care Team Providers Care Pharmacy Resource Tech Name Role Phone Celina Handley NP Primary Care Provider [phone] Encounter Details Date Type Department Care Team (Late st Contact Info) Description 03/08/[address] 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 ([facility]) [facility] LAB RBC 4.80 3.80 - 5.50 M/[facility] LAB HEMETOLOGY METHOD 03/09/2025 9:38 AM [facility] LAB Hemoglobin 13.9 12.0 - 18.0 g/dL LAB HEMETOLOGY METHOD 03/09/2025 9:38 AM [facility] LAB Hematocrit 41.2 36.0 - 48.0 % LAB HEMETOLOGY METHOD 03/09/2025 9:38 AM [facility] LAB MCV 85.7 79.0 - 98.0 FL LAB HEMETOLOGY METHOD 03/09/2025 9:38 AM [facility] LAB MCH 28.9 27.0 - 32.0 pcg LAB HEMETOLOGY METHOD 03/09/2025 9:38 AM [facility] LAB MCHC 33.7 32.0 - 37.0 g/dL LAB HEMETOLOGY METHOD 03/09/2025 9:38 AM [facility] LAB RDW 12.7 11.0 - 15.0 % LAB HEMETOLOGY METHOD 03/09/2025 9:38 AM [facility] LAB Platelets 203 130 - 400 K/mcL LAB HEMETOLOGY METHOD 03/09/2025 9:38 AM [facility] LAB MPV 11.8(H) 7.0 - 11.0 FL LAB HEMETOLOGY METHOD 03/09/2025 9:38 AM [facility] LAB NRBC 0.0 <1.0 % LAB HEMETOLOGY METHOD 03/09/2025 9:38 AM [facility] LAB NRBC Absolute 0.00 <0.10 K/mcL LAB HEMETOLOGY METHOD 03/09/2025 9:38 AM [facility] LAB Neutrophils Relative 56.4 % LAB HEMETOLOGY METHOD 03/09/2025 9:38 AM [facility] LAB Lymphocytes Relative 32.6 % LAB HEMETOLOGY METHOD 03/09/2025 9:38 AM [facility] LAB Monocytes Relative 8.4 % LAB HEMETOLOGY METHOD 03/09/2025 9:38 AM EDT [facility] LAB Eosinophils Relative 1.9 % LAB HEMETOLOGY METHOD 03/09/2025 9:38 AM EDT [facility] LAB Basophils Relative 0.4 % LAB HEMETOLOGY METHOD 03/09/2025 9:38 AM EDT [facility] LAB Immature Granulocytes Relative 0.3 % LAB HEMETOLOGY METHOD 03/09/2025 9:38 AM EDT [facility] LAB Neutrophils Absolute 3.77 1.50 - 7.00 K/mcL LAB HEMETOLOGY METHOD 03/09/2025 9:38 AM EDT [facility] LAB Lymphocytes Absolute 2.18 1.00 - 5.00 K/mcL LAB HEMETOLOGY METHOD 03/09/2025 9:38 AM EDT [facility] LAB Monocytes Absolute 0.56 0.20 - 1.00 K/mcL LAB HEMETOLOGY METHOD 03/09/2025 9:38 AM EDT [facility] LAB Eosinophils Absolute 0.13 0.00 - 0.50 K/mcL LAB HEMETOLOGY METHOD 03/09/2025 9:38 AM EDT [facility] LAB Basophils Absolute 0.03 0.00 - 0.20 K/mcL LAB HEMETOLOGY METHOD 03/09/2025 9:38 AM EDT [facility] LAB Immature Granulocytes Absolute 0.02 0.00 - 0.03 K/mcL LAB HEMETOLOGY METHOD 03/09/2025 9:38 AM EDT [facility] LAB Blood Venous blood specimen / Unknown Venipuncture / Unknown 03/09/2025 7:56 AM EDT 03/09/2025 8:45 AM EDT us Celina Handley NP LAB BLOOD ORDERABLES Final R esult [facility] LAB [address] [place] [address], documented in this encounter Visit Diagnoses Diagnosis 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
--- OUTSIDE RECORDS SUMMARY | 2025-07-12 09:01 | XMS_ITS | Clinical Summary ---
Author Organization [address] [facility] Address [address] [place] [address] Phone Care Team Providers Care Recruiting Manager Name Role Phone Celina Handley DATA DESIGNER Primary Care Provider Encounters Date Type Department Care Team Description 07/05/2025 Lab Requisition [facility] Lab [address] [place] [address] Celina Handley NP Other intermission coordinator (current) 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 06/22/2025 Lab Requisition [facility] Lab [address] [place] [address] Celina Handlye NP Other intermission coordinator (current) 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 from Last 3 Months Social History Tobacco Use Types Packs/Day Years Used Date Smoking Tobacco: Never Assessed Comments Unknown Sex and Gender Information Value Date Recorded Sex Assigned at Not on file Legal Sex Unknown 03/08/2025 10:54 PM EDT Gender Identity Not on file Sexual Orientation Not on file Plan of Treatment Health Maintenance Due Date Last Done Comments DTaP,Tdap,and Td Vaccines (1 - Tdap) 2013 Hepatitis B Vaccines (1 of 3 - 19+ 3-dose series) 2013 Cervical Cancer Screening: P ap Smear 2015 Depression Screening 10/21/2024 HIV Screening 03/09/2025 Hepatitis C Screening 03/09/2025 Medicare Annual Wellness Visit 03/09/2025 Social Influencers of Health Screening 03/09/2025 COVID-19 Vaccine ( - 2023-2 5 season) 2025 Influenza Vaccine (#1) 2025 RSV Immunization Adult Patie nts (1 - 1-dose 75+ series) 2069 HIB Vaccines Aged Out No longer eligi ble based on patient's age to complete this topic HPV Vaccines Aged Out No longer eligi ble based on patient's age to complete this topic Hepatitis A Vaccines Aged Out No long er eligible based on patient's age to complete this topic IPV Vaccines Aged Out No longer eligi ble based on patient's age to complete this topic MMR Vaccines Aged Out No longer eligi ble based on patient's age to complete this topic Meningococcal ACWY Vaccine Aged Out N o longer eligible based on patient's age to complete this topic Meningococcal B Vaccine Aged Out No l onger eligible based on patient's age to complete this topic Pneumococcal Vaccine: Pediat rics (0 to 5 Years) and At-Risk Patients (6 to 49 Years) Aged Out No longer eligible b ased on patient's age to complete this topic RSV Immunization Patients Un tia 20 months Aged Out No longer eligible b ased on patient's age to complete this topic Varicella Vaccines Aged Out No longer eligible based on patient's age to complete this topic Procedures Procedure Name Priority Date/Time Associated Diagnosis Comments CBC WITH AUTO DIFFERENTIAL Routine 07/06/2025 6:06 AM EDT Other [facility] (current) 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 CBC AND DIFFERENTIAL Routine 07/06/2025 6:06 AM EDT Other intermission coordinator (current) 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 CBC WITH AUTO DIFFERENTIAL Routine 06/23/2025 5:40 AM EDT Other intermission coordinator (current) 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 CBC AND DIFFERENTIAL Routine 06/23/2025 5:40 AM EDT Other intermission coordinator (current) 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 from Last 3 Months Results * (ABNORMAL) CBC auto differential (07/06/2025 6:06 AM EDT) Only the most recent of2 resultswithin the time period is included. WBC 8.6 4.8 - 10.8 K/mcL LAB HEMETOLOGY METHOD 07/06/2025 7:57 AM EDT [facility] LAB RBC 4.00 3.80 - 5.50 M/mcL LAB HEMETOLOGY METHOD 07/06/2025 7:57 AM EDT [facility] LAB Hemoglobin 10.3(L) 12.0 - 18.0 g/dL [...] 7:57 AM [facility] LAB Monocytes Relative 5.5 % LAB HEMETOLOGY METHOD 07/06/2025 7:57 AM EDT [facility] LAB Eosinophils Relative 3.2 % LAB HEMETOLOGY METHOD 07/06/2025 7:57 AM EDT [facility] LAB Basophils Relative 0.5 % LAB HEMETOLOGY METHOD 07/06/2025 7:57 AM EDT [facility] LAB Immature Granulocytes Relative 0.8 % LAB HEMETOLOGY METHOD 07/06/2025 7:57 AM EDT [facility] LAB Neutrophils Absolute 5.74 1.50 - 7.00 K/mcL LAB HEMETOLOGY METHOD 07/06/2025 7:57 AM EDT [facility] LAB Lymphocytes Absolute 1.98 1.00 - 5.00 K/mcL LAB [facility] Monocytes Absolute 0.47 0.20 - 1.00 K/mcL LAB HEMETOLOGY METHOD 07/06/2025 7:57 AM EDT [facility] LAB Eosinophils Absolute 0.27 0.00 - 0.50 K/mcL LAB HEMETOLOGY METHOD 07/06/2025 7:57 AM EDT [facility] LAB Basophils Absolute 0.04 0.00 - 0.20 K/mcL LAB HEMETOLOGY METHOD 07/06/2025 7:57 AM EDT [facility] LAB Immature Granulocytes Absolute 0.07(H) 0.00 - 0.03 K/mcL LAB HEMETOLOGY METHOD 07/06/2025 7:57 AM EDT [facility] LAB Blood Venous blood specimen / Unknown Venipuncture / Unknown 07/06/2025 6:06 AM EDT 07/06/2025 7:41 AM EDT us Celina Handley NP LAB BLOOD ORDERABLES Final R esult [facility] LAB [address] [place] [address], from Last 3 Months Insurance [place]ICAID - [place] [employer] MED[employer]ARE [employer]VANTAGE Care Teams Recruiting Manager Relationship Specialty Start Date End Date Celina Handley NP [address] [place] [phone] PCP - General 03/10/25
--- OUTSIDE RECORDS SUMMARY | 2025-07-12 09:01 | XMS_ITS | Encounter Summary ---
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 Social History Tobacco Use [...] Diagnosis Comments CBC WITH AUTO DIFFERENTIAL Routine 03/23/2025 6:23 AM EDT Other nursing home (current) 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 CBC AND DIFFERENTIAL Routine 03/23/2025 6:23 AM EDT Other nursing home (current) 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 documented in this encounter Results * (ABNORMAL) CBC auto differential (03/23/2025 6:23 AM EDT) WBC 7.6 4.8 - 10.8 K/[facility] LAB HEMETOLOGY METHOD 03/23/2025 11:55 AM EDT [facility] ([facility] LAB RBC 4.60 3.80 - 5.50 M/[facility] LAB HEMETOLOGY METHOD 03/23/2025 11:55 AM [facility] LAB Hemoglobin 12.9 12.0 - 18.0 g/dL LAB HEMETOLOGY METHOD 03/23/2025 11:55 AM [facility] LAB Hematocrit 38.9 36.0 - 48.0 % LAB HEMETOLOGY METHOD 03/23/2025 11:55 AM [facility] LAB MCV 85.1 79.0 - 98.0 FL LAB HEMETOLOGY METHOD 03/23/2025 11:55 AM [facility] LAB MCH 28.2 27.0 - 32.0 pcg LAB HEMETOLOGY METHOD 03/23/2025 11:55 AM [facility] LAB MCHC 33.2 32.0 - 37.0 g/dL LAB HEMETOLOGY METHOD 03/23/2025 11:55 AM [facility] LAB RDW 13.2 11.0 - 15.0 % LAB HEMETOLOGY METHOD 03/23/2025 11:55 AM [facility] LAB Platelets 223 130 - 400 K/mcL LAB HEMETOLOGY METHOD 03/23/2025 11:55 AM [facility] LAB MPV 12.2(H) 7.0 - 11.0 FL LAB HEMETOLOGY METHOD 03/23/2025 11:55 AM [facility] LAB NRBC 0.0 <1.0 % LAB HEMETOLOGY METHOD 03/23/2025 11:55 AM [facility] LAB NRBC Absolute 0.00 <0.10 K/mcL LAB HEMETOLOGY METHOD 03/23/2025 11:55 AM [facility] LAB Neutrophils Relative 65.5 % LAB HEMETOLOGY METHOD 03/23/2025 11:55 AM [facility] LAB Lymphocytes Relative 25.1 % LAB HEMETOLOGY METHOD 03/23/2025 11:55 AM [facility] LAB Monocytes Relative 6.0 % LAB HEMETOLOGY METHOD 03/23/2025 11:55 AM EDT [facility] LAB Eosinophils Relative 2.0 % LAB HEMETOLOGY METHOD 03/23/2025 11:55 AM EDT [facility] LAB Basophils Relative 0.5 % LAB HEMETOLOGY METHOD 03/23/2025 11:55 AM EDT [facility] LAB Immature Granulocytes Relative 0.9 % LAB HEMETOLOGY METHOD 03/23/2025 11:55 AM EDT [facility] LAB Neutrophils Absolute 5.00 1.50 - 7.00 K/mcL LAB HEMETOLOGY METHOD 03/23/2025 11:55 AM EDT [facility] LAB Lymphocytes Absolute 1.92 1.00 - 5.00 K/mcL LAB [facility]Y [facility] Monocytes Absolute 0.46 0.20 - 1.00 K/mcL LAB HEMETOLOGY METHOD 03/23/2025 11:55 AM EDT [facility] LAB Eosinophils Absolute 0.15 0.00 - 0.50 K/mcL LAB [facility]EMETOLOGY METHOD [facility] Basophils Absolute 0.04 0.00 - 0.20 K/mcL LAB HEMETOLOGY METHOD 03/23/2025 11:55 AM EDT [facility] LAB Immature Granulocytes Absolute 0.07(H) 0.00 - 0.03 K/mcL LAB HEMETOLOGY METHOD 03/23/2025 11:55 AM EDT [facility] LAB Blood Venous blood specimen / Unknown 03/23/2025 6:23 AM EDT 03/23/2025 11:26 AM EDT us Celina Handley NP LAB BLOOD ORDERABLES Final R esult [facility] LAB [address] [place] [address], documented in this encounter Visit Diagnoses Diagnosis Other nursing home (current) 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 documented in this encounter Care Teams First Crusher Relationship Specialty Start Date End Date Celina Handley NP [address] [place] [phone] PCP - General 03/10/25 documented as of this encounter
--- OUTSIDE RECORDS SUMMARY | 2025-07-12 09:01 | XMS_ITS | Encounter Summary ---
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 Social History Tobacco Use [...] Diagnosis Comments CBC WITH AUTO DIFFERENTIAL Routine 04/06/2025 8:52 AM EDT [place] [facility] 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 CBC AND DIFFERENTIAL Routine 04/06/2025 8:52 AM EDT [place] [facility] [place] 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 documented in this encounter Results * (ABNORMAL) CBC auto differential (04/06/2025 8:52 AM EDT) WBC 5.9 4.8 - 10.8 K/[facility] LAB HEMETOLOGY METHOD 04/06/2025 10:49 AM EDT [facility] ([facility]) [facility] LAB RBC 4.40 3.80 - 5.50 M/[facility] LAB HEMETOLOGY METHOD 04/06/2025 10:49 AM [facility] LAB Hemoglobin 12.4 12.0 - 18.0 g/dL LAB HEMETOLOGY METHOD 04/06/2025 10:49 AM [facility] LAB Hematocrit 37.3 36.0 - 48.0 % LAB HEMETOLOGY METHOD 04/06/2025 10:49 AM [facility] LAB MCV 85.0 79.0 - 98.0 FL LAB HEMETOLOGY METHOD 04/06/2025 10:49 AM [facility] LAB MCH 28.2 27.0 - 32.0 pcg LAB HEMETOLOGY METHOD 04/06/2025 10:49 AM [facility] LAB MCHC 33.2 32.0 - 37.0 g/dL LAB HEMETOLOGY METHOD 04/06/2025 10:49 AM [facility] LAB RDW 12.9 11.0 - 15.0 % LAB HEMETOLOGY METHOD 04/06/2025 10:49 AM [facility] LAB Platelets 224 130 - 400 K/mcL LAB HEMETOLOGY METHOD 04/06/2025 10:49 AM [facility] LAB MPV 11.8(H) 7.0 - 11.0 FL LAB HEMETOLOGY METHOD 04/06/2025 10:49 AM [facility] LAB NRBC 0.0 <1.0 % LAB HEMETOLOGY METHOD 04/06/2025 10:49 AM [facility] LAB NRBC Absolute 0.00 <0.10 K/mcL LAB HEMETOLOGY METHOD 04/06/2025 10:49 AM [facility] LAB Neutrophils Relative 60.0 % LAB HEMETOLOGY METHOD 04/06/2025 10:49 AM [facility] LAB Lymphocytes Relative 29.4 % LAB HEMETOLOGY METHOD 04/06/2025 10:49 AM [facility] LAB Monocytes Relative 7.8 % LAB HEMETOLOGY METHOD 04/06/2025 10:49 AM EDT [facility] LAB Eosinophils Relative 2.0 % LAB HEMETOLOGY METHOD 04/06/2025 10:49 AM EDT [facility] LAB Basophils Relative 0.3 % LAB HEMETOLOGY METHOD 04/06/2025 10:49 AM EDT [facility] LAB Immature Granulocytes Relative 0.5 % LAB HEMETOLOGY METHOD 04/06/2025 10:49 AM EDT [facility] LAB Neutrophils Absolute 3.53 1.50 - 7.00 K/mcL LAB HEMETOLOGY METHOD 04/06/2025 10:49 AM EDT [facility] LAB Lymphocytes Absolute 1.73 1.00 - 5.00 K/mcL LAB HEMETOLOGY METHOD 04/06/2025 10:49 AM EDT [facility] LAB Monocytes Absolute 0.46 0.20 - 1.00 K/mcL LAB HEMETOLOGY METHOD 04/06/2025 10:49 AM EDT [facility] LAB Eosinophils Absolute 0.12 0.00 - 0.50 K/mcL LAB [facility] Absolute 0.02 0.00 - 0.20 K/mcL LAB HEMETOLOGY METHOD 04/06/2025 10:49 AM EDT [facility] LAB Immature Granulocytes Absolute 0.03 0.00 - 0.03 K/mcL LAB HEMETOLOGY METHOD 04/06/2025 10:49 AM EDT [facility] LAB Blood Venous blood specimen / Unknown Venipuncture / Unknown 04/06/2025 8:52 AM EDT 04/06/2025 10:30 AM EDT us Celina Handley NP LAB BLOOD ORDERABLES Final R esult [facility] LAB [address] [place] [address], documented in this encounter Visit Diagnoses Diagnosis Other [place] [facility] [place]current) 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 documented in this encounter Care Teams Investigator Fraud Relationship Specialty Start Date End Date Celina Handley NP [address] [place] [phone] PCP - General 03/10/25 documented as of this encounter
== END 2025-07-12 09:31 | disposition home or self-care (01) ==
DX: E11.9 Type 2 diabetes mellitus without complications (principal); F22 Delusional disorders; E78.00 Pure hypercholesterolemia, unspecified; F41.9 Anxiety disorder, unspecified; F32.A Depression, unspecified; F90.9 Attention-deficit hyperactivity disorder, unspecified type; K76.0 Fatty (change of) liver, not elsewhere classified; K21.9 Gastro-esophageal reflux disease without esophagitis; F43.10 Post-traumatic stress disorder, unspecified; J45.909 Unspecified asthma, uncomplicated

== ENCOUNTER → 2025-07-12 08:09 | Outpatient (BNVA) | payer MEDICARE, MEDICAID, SELFPAY | DX: E11.9 Type 2 diabetes mellitus without complications (principal); E78.00 Pure hypercholesterolemia, unspecified; F41.9 Anxiety disorder, unspecified; F32.A Depression, unspecified; F90.9 Attention-deficit hyperactivity disorder, unspecified type; K76.0 Fatty (change of) liver, not elsewhere classified; K21.9 Gastro-esophageal reflux disease without esophagitis; F43.10 Post-traumatic stress disorder, unspecified; F22 Delusional disorders; J45.909 Unspecified asthma, uncomplicated; Z79.899 Other long term (current) 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; Z59.819 Housing instability, housed unspecified | CPT/HCPCS: 83036; 96127 ==

== ENCOUNTER 2025-08-06 20:25 | Emergency (ER) | payer OTHER, MEDICAID, SELFPAY ==
[2025-08-06 20:30] VITALS: BP 139/71; PULSE 104; RESP 20; TEMP 36.5; O2SAT 96; BMI 41.6
[2025-08-06 20:42] LABS: Glucose, Whole Blood 209 mg/dL (60-115)
[2025-08-06 20:53] LABS: MANUAL DIFF FLAG NO
[2025-08-06 20:57] LABS: Hematocrit 32.4 % (37.0-47.0); Hemoglobin 10.2 g/dl (12.0-16.0); Imm Gran Abs Auto 0.04 X10*3/uL (0.00-0.03); Imm Gran Pct Auto 0.5 % (0.0-0.4); Lymphocytes Absolute Auto 1.6 X10*3/uL (1.2-4.9); Mean Corpuscular HGB Conc 31.5 g/dl (31.0-35.0); Mean Corpuscular Hemoglobin 25.0 pg (27.0-33.0); Mean Corpuscular Volume 79.4 fL (80.0-98.0); NRBC Abs Auto 0.000 X10*3/uL (0.0-0.012); NRBC Pct Auto 0.0 /100WBC (0.0-0.2); Platelet Count 267 X10*3/uL (160-400); Red Blood Count 4.08 X10*6/uL (4.20-5.50); White Blood Count 8.9 X10*3/uL (4.8-10.8)
[2025-08-06 20:58] LABS: Appearance Urine Clear; Glucose Urine UA >=1000 mg/dL (Negative); PH 5.5 (5.0-9.0); Specific Gravity - Urine >= 1.030 (1.005-1.025); UMIC TRIGGER UACC YES
[2025-08-06 21:20] LABS: Alanine Aminotransferase 177 U/L (0-31); Albumin Level 4.6 g/dL (3.5-5.0); Alkaline Phosphatase 78 U/L (39-117); Anion Gap 17 (12-20); Aspartate Amino Transferase 180 U/L (5-31); Blood Urea Nitrogen 12 mg/dL (9-16); Calcium 9.5 mg/dL (8.4-10.2); Carbon Dioxide 21 mmol/L (22-29); Chloride 105 mmol/L (96-108); Creatinine Clr Calc Pharmacy 139.1; Estimated Glomerular Filt Rate > 60; Potassium 3.7 mmol/L (3.3-5.1); Sodium 139 mmol/L (135-145); Total Protein 7.4 g/dL (6.5-8.0)
[2025-08-06 22:00] VITALS: BP 144/71; PULSE 104; RESP 16; TEMP 36.8; O2SAT 95
--- OUTSIDE RECORDS SUMMARY | 2025-08-06 22:21 | XMS_ITS | Encounter Summary ---
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 LAB HEMETOLOGY METHOD 07/06/2025 7:57 AM EDT [facility] ([facility]) [facility] LAB RBC 4.00 3.80 - 5.50 M/[facility] LAB HEMETOLOGY METHOD 07/06/2025 7:57 AM [facility] LAB Hemoglobin 10.3(L) 12.0 - 18.0 g/dL LAB HEMETOLOGY METHOD 07/06/2025 7:57 AM [facility] LAB Hematocrit 32.3(L) 36.0 - 48.0 % LAB HEMETOLOGY METHOD 07/06/2025 7:57 AM [facility] LAB MCV 81.4 79.0 - 98.0 FL LAB HEMETOLOGY METHOD 07/06/2025 7:57 AM [facility] LAB MCH 25.9(L) 27.0 - 32.0 pcg LAB HEMETOLOGY METHOD 07/06/2025 7:57 AM [facility] LAB MCHC 31.9(L) 32.0 - 37.0 g/dL LAB HEMETOLOGY METHOD 07/06/2025 7:57 AM [facility] LAB RDW 13.5 11.0 - 15.0 % LAB HEMETOLOGY METHOD 07/06/2025 7:57 AM [facility] LAB Platelets 239 130 - 400 K/mcL LAB HEMETOLOGY METHOD 07/06/2025 7:57 AM [facility] LAB MPV 12.4(H) 7.0 - 11.0 FL LAB HEMETOLOGY METHOD 07/06/2025 7:57 AM [facility] LAB NRBC 0.0 <1.0 % LAB HEMETOLOGY METHOD 07/06/2025 7:57 AM [facility] LAB NRBC Absolute 0.00 <0.10 K/mcL LAB HEMETOLOGY METHOD 07/06/2025 7:57 AM [facility] LAB Neutrophils Relative 66.9 % LAB HEMETOLOGY METHOD 07/06/2025 7:57 AM [facility] LAB Lymphocytes Relative 23.1 % LAB HEMETOLOGY METHOD 07/06/2025 7:57 AM EDT [facility] LAB Monocytes Relative 5.5 % LAB HEM[facility]OLOGY [facility] Eosinophils Relative 3.2 % LAB HEMETOLOGY METHOD 07/06/2025 7:57 [facility] Basophils Relative 0.5 % LAB HEMETOLOGY METHOD 07/06/2025 7:57 AM EDT [facility] LAB Immature Granulocytes Relative 0.8 % LAB HEMETOLOGY METHOD 07/06/2025 7:57 AM EDT [facility] LAB Neutrophils Absolute 5.74 1.50 - 7.00 K/mcL LAB HEMETOLOGY METHOD 07/06/2025 7:57 AM [facility] LAB Lymphocytes Absolute 1.98 1.00 - 5.00 K/mcL LAB HEMETOLOGY METHOD 07/06/2025 7:57 [facility] Monocytes Absolute 0.47 0.20 - 1.00 K/mcL LAB HEMETOLOGY METHOD 07/06/2025 7:57 AM [facility] LAB Eosinophils Absolute 0.27 0.00 - 0.50 K/mcL LAB HEMETOLOGY METHOD 07/06/2025 7:57 [facility] Basophils Absolute 0.04 0.00 - 0.20 K/mcL LAB HEMETOLOGY METHOD 07/06/2025 7:57 [facility] Immature Granulocytes Absolute 0.07(H) 0.00 - 0.03 K/mcL LAB HEMETOLOGY METHOD 07/06/2025 7:57 AM [facility] LAB Blood Venous blood specimen / Unknown Venipuncture / Unknown 07/06/2025 6:06 AM EDT 07/06/2025 7:41 AM EDT us Celina Handley NP LAB BLOOD ORDERABLES Final R esult [facility] LAB [address] [place] [address], documented in this encounter Visit Diagnoses Diagnosis Other detention (current) 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 documented in this encounter Care Teams Support Services Rep Relationship Specialty Start Date End Date Celina Handley NP [address] [place] [phone] PCP - General 03/10/25 documented as of this encounter
--- OUTSIDE RECORDS SUMMARY | 2025-08-06 22:21 | XMS_ITS | Encounter Summary ---
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 LAB HEMETOLOGY METHOD 03/09/2025 9:38 AM EDT [facility] ([facility]) [facility] LAB RBC 4.80 3.80 - 5.50 M/[facility] LAB HEMETOLOGY METHOD 03/09/2025 9:38 AM [facility] LAB Hemoglobin 13.9 12.0 - 18.0 g/dL LAB HEMETOLOGY METHOD 03/09/2025 9:38 AM [facility] LAB Hematocrit 41.2 36.0 - 48.0 % LAB HEMETOLOGY METHOD 03/09/2025 9:38 AM [facility] LAB MCV 85.7 79.0 - 98.0 FL LAB HEMETOLOGY METHOD 03/09/2025 9:38 AM [facility] LAB MCH 28.9 27.0 - 32.0 pcg LAB HEMETOLOGY METHOD 03/09/2025 9:38 AM [facility] LAB MCHC 33.7 32.0 - 37.0 g/dL LAB HEMETOLOGY METHOD 03/09/2025 9:38 AM [facility] LAB RDW 12.7 11.0 - 15.0 % LAB HEMETOLOGY METHOD 03/09/2025 9:38 AM [facility] LAB Platelets 203 130 - 400 K/mcL LAB HEMETOLOGY METHOD 03/09/2025 9:38 AM [facility] LAB MPV 11.8(H) 7.0 - 11.0 FL LAB HEMETOLOGY METHOD 03/09/2025 9:38 AM [facility] LAB NRBC 0.0 <1.0 % LAB HEMETOLOGY METHOD 03/09/2025 9:38 AM [facility] LAB NRBC Absolute 0.00 <0.10 K/mcL LAB HEMETOLOGY METHOD 03/09/2025 9:38 AM [facility] LAB Neutrophils Relative 56.4 % LAB HEMETOLOGY METHOD 03/09/2025 9:38 AM [facility] LAB Lymphocytes Relative 32.6 % LAB HEMETOLOGY METHOD 03/09/2025 9:38 AM [facility] LAB Monocytes Relative 8.4 % LAB HEMETOLOGY METHOD 03/09/2025 9:38 AM EDT [facility] LAB Eosinophils Relative 1.9 % LAB HEMETOLOGY METHOD 03/09/2025 9:38 AM EDT [facility] LAB Basophils Relative 0.4 % LAB HEMETOLOGY METHOD 03/09/2025 9:38 AM EDT [facility] LAB Immature Granulocytes Relative 0.3 % LAB HEMETOLOGY METHOD 03/09/2025 9:38 AM EDT [facility] LAB Neutrophils Absolute 3.77 1.50 - 7.00 K/mcL LAB HEMETOLOGY METHOD 03/09/2025 9:38 AM EDT [facility] LAB Lymphocytes Absolute 2.18 1.00 - 5.00 K/mcL LAB HEMETOLOGY METHOD 03/09/2025 9:38 AM EDT [facility] LAB Monocytes Absolute 0.56 0.20 - 1.00 K/mcL LAB HEMETOLOGY METHOD 03/09/2025 9:38 AM EDT [facility] LAB Eosinophils Absolute 0.13 0.00 - 0.50 K/mcL LAB HEMETOLOGY METHOD 03/09/2025 9:38 AM EDT [facility] LAB Basophils Absolute 0.03 0.00 - 0.20 K/mcL LAB HEMETOLOGY METHOD 03/09/2025 9:38 AM EDT [facility] LAB Immature Granulocytes Absolute 0.02 0.00 - 0.03 K/mcL LAB HEMETOLOGY METHOD 03/09/2025 9:38 AM EDT [facility] LAB Blood Venous blood specimen / Unknown Venipuncture / Unknown 03/09/2025 7:56 AM EDT 03/09/2025 8:45 AM EDT us Celina Handley NP LAB BLOOD ORDERABLES Final R esult [facility] LAB [address] [place] [address], documented in this encounter Visit Diagnoses Diagnosis Other care home (current) 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 documented in this encounter Care Teams Postal Sorting Officer Relationship Specialty Start Date End Date Celina Handley NP [address] [place] [phone] PCP - General 03/10/25 documented as of this encounter
--- OUTSIDE RECORDS SUMMARY | 2025-08-06 22:21 | XMS_ITS | Encounter Summary ---
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 [...] DIFFERENTIAL Routine 04/06/2025 8:52 AM EDT Other residential (current) 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 CBC AND DIFFERENTIAL Routine 04/06/2025 8:52 AM EDT Other residential (current) 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 documented in this encounter Results * (ABNORMAL) CBC auto differential (04/06/2025 8:52 AM EDT) WBC 5.9 4.8 - 10.8 K/[facility] LAB HEMETOLOGY METHOD 04/06/2025 10:49 AM EDT [facility] ([facility]) [facility] LAB RBC 4.40 3.80 - 5.50 M/[facility] LAB HEMETOLOGY METHOD 04/06/2025 10:49 AM [facility] LAB Hemoglobin 12.4 12.0 - 18.0 g/dL LAB HEMETOLOGY METHOD 04/06/2025 10:49 AM [facility] LAB Hematocrit 37.3 36.0 - 48.0 % LAB HEMETOLOGY METHOD 04/06/2025 10:49 AM [facility] LAB MCV 85.0 79.0 - 98.0 FL LAB HEMETOLOGY METHOD 04/06/2025 10:49 AM [facility] LAB MCH 28.2 27.0 - 32.0 pcg LAB HEMETOLOGY METHOD 04/06/2025 10:49 AM [facility] LAB MCHC 33.2 32.0 - 37.0 g/dL LAB HEMETOLOGY METHOD 04/06/2025 10:49 AM [facility] LAB RDW 12.9 11.0 - 15.0 % LAB HEMETOLOGY METHOD 04/06/2025 10:49 AM [facility] LAB Platelets 224 130 - 400 K/mcL LAB HEMETOLOGY METHOD 04/06/2025 10:49 AM [facility] LAB MPV 11.8(H) 7.0 - 11.0 FL LAB HEMETOLOGY METHOD 04/06/2025 10:49 AM [facility] LAB NRBC 0.0 <1.0 % LAB HEMETOLOGY METHOD 04/06/2025 10:49 AM [facility] LAB NRBC Absolute 0.00 <0.10 K/mcL LAB HEMETOLOGY METHOD 04/06/2025 10:49 AM [facility] LAB Neutrophils Relative 60.0 % LAB HEMETOLOGY METHOD 04/06/2025 10:49 AM [facility] LAB Lymphocytes Relative 29.4 % LAB HEMETOLOGY METHOD 04/06/2025 10:49 AM [facility] LAB Monocytes Relative 7.8 % LAB HEMETOLOGY METHOD 04/06/2025 10:49 AM EDT [facility] LAB Eosinophils Relative 2.0 % LAB HEMETOLOGY METHOD 04/06/2025 10:49 AM EDT [facility] LAB Basophils Relative 0.3 % LAB HEMETOLOGY METHOD 04/06/2025 10:49 AM EDT [facility] LAB Immature Granulocytes Relative 0.5 % LAB HEMETOLOGY METHOD 04/06/2025 10:49 AM EDT [facility] LAB Neutrophils Absolute 3.53 1.50 - 7.00 K/mcL LAB HEMETOLOGY METHOD 04/06/2025 10:49 AM EDT [facility] LAB Lymphocytes Absolute 1.73 1.00 - 5.00 K/mcL LAB HEMETOLOGY METHOD 04/06/2025 10:49 AM EDT [facility] LAB Monocytes Absolute 0.46 0.20 - 1.00 K/mcL LAB HEMETOLOGY METHOD 04/06/2025 10:49 AM EDT [facility] LAB Eosinophils Absolute 0.12 0.00 - 0.50 K/mcL LAB [facility]OLOGY [facility] Basophils Absolute 0.02 0.00 - 0.20 K/mcL LAB HEMETOLOGY METHOD 04/06/2025 10:49 AM EDT [facility] LAB Immature Granulocytes Absolute 0.03 0.00 - 0.03 K/mcL LAB HEMETOLOGY METHOD 04/06/2025 10:49 AM EDT [facility] LAB Blood Venous blood specimen / Unknown Venipuncture / Unknown 04/06/2025 8:52 AM EDT 04/06/2025 10:30 AM EDT us Celina Handley NP LAB BLOOD ORDERABLES Final R esult [facility] LAB [address] [place] [address], documented in this encounter Visit Diagnoses Diagnosis 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
--- OUTSIDE RECORDS SUMMARY | 2025-08-06 22:21 | XMS_ITS | Encounter Summary ---
Author Organization [employer] [facility] Address [address] [place] [address] Care Team Providers Care Laborer Ammunition Assembly Name Role Phone Celina Handley NP Primary Care Provider Encounter Details Date Type Department Care Team (Late st Contact Info) Description 06/22/2025 Lab Requisition [facility] - Main Lab 299 [facility] [place] [address] Celina Handley NP [address] [place] [address] Other director long term care (current) 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 Social History Tobacco Use [...] DIFFERENTIAL Routine 06/23/2025 5:40 AM EDT Other mcc (current) 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 CBC AND DIFFERENTIAL Routine 06/23/2025 5:40 AM EDT Other mcc (current) 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 documented in this encounter Results * (ABNORMAL) CBC auto differential (06/23/2025 5:40 AM EDT) WBC 8.1 4.8 - 10.8 K/[facility] LAB HEMETOLOGY METHOD 06/23/2025 8:16 AM EDT [facility] ([facility]) [facility] LAB RBC 3.80 3.80 - 5.50 M/[facility] LAB HEMETOLOGY METHOD 06/23/2025 8:16 AM [facility] LAB Hemoglobin 10.4(L) 12.0 - 18.0 g/dL LAB HEMETOLOGY METHOD 06/23/2025 8:16 AM [facility] LAB Hematocrit 31.7(L) 36.0 - 48.0 % LAB HEMETOLOGY METHOD 06/23/2025 8:16 AM [facility] LAB MCV 82.8 79.0 - 98.0 FL LAB HEMETOLOGY METHOD 06/23/2025 8:16 AM [facility] LAB MCH 27.2 27.0 - 32.0 pcg LAB HEMETOLOGY METHOD 06/23/2025 8:16 AM [facility] LAB MCHC 32.8 32.0 - 37.0 g/dL LAB HEMETOLOGY METHOD 06/23/2025 8:16 AM [facility] LAB RDW 13.1 11.0 - 15.0 % LAB HEMETOLOGY METHOD 06/23/2025 8:16 AM [facility] LAB Platelets 226 130 - 400 K/mcL LAB HEMETOLOGY METHOD 06/23/2025 8:16 AM [facility] LAB MPV 11.8(H) 7.0 - 11.0 FL LAB HEMETOLOGY METHOD 06/23/2025 8:16 AM [facility] LAB NRBC 0.0 <1.0 % LAB HEMETOLOGY METHOD 06/23/2025 8:16 AM [facility] LAB NRBC Absolute 0.00 <0.10 K/mcL LAB HEMETOLOGY METHOD 06/23/2025 8:16 AM [facility] LAB Neutrophils Relative 64.7 % LAB HEMETOLOGY METHOD 06/23/2025 8:16 AM [facility] LAB Lymphocytes Relative 23.8 % LAB HEMETOLOGY METHOD 06/23/2025 8:16 AM [facility] LAB Monocytes Relative 7.8 % LAB HEMETOLOGY METHOD 06/23/2025 8:16 AM EDT [facility] LAB Eosinophils Relative 2.6 % LAB HEMETOLOGY METHOD 06/23/2025 8:16 AM EDT [facility] LAB Basophils Relative 0.5 % LAB HEMETOLOGY METHOD 06/23/2025 8:16 AM EDT [facility] LAB Immature Granulocytes Relative 0.6 % LAB HEMETOLOGY METHOD 06/23/2025 8:16 AM EDT [facility] LAB Neutrophils Absolute 5.23 1.50 - 7.00 K/mcL LAB HEMETOLOGY METHOD 06/23/2025 8:16 AM EDT [facility] LAB Lymphocytes Absolute 1.92 1.00 - 5.00 K/mcL LAB HEMETOLOGY METHOD 06/23/2025 8:16 AM EDT [facility] LAB Monocytes Absolute 0.63 0.20 - 1.00 K/mcL LAB HEMETOLOGY METHOD 06/23/2025 8:16 AM EDT [facility] LAB Eosinophils Absolute 0.21 0.00 - 0.50 K/mcL LAB HEMETOLOGY METHOD 06/23/2025 8:16 AM EDT [facility] LAB Basophils Absolute 0.04 0.00 - 0.20 K/mcL LAB HEMETOLOGY METHOD 06/23/2025 8:16 AM EDT [facility] LAB Immature Granulocytes Absolute 0.05(H) 0.00 - 0.03 K/mcL LAB HEMETOLOGY METHOD 06/23/2025 8:16 AM EDT [facility] LAB Blood Venous blood specimen / Unknown Venipuncture / Unknown 06/23/2025 5:40 AM EDT 06/23/2025 7:57 AM EDT us Celina Handley NP LAB BLOOD ORDERABLES Final R esult [facility]) HOSPITAL LAB [address] [place] [address], documented in this encounter Visit Diagnoses Diagnosis Other mcc (current) 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 documented in this encounter Care Teams Laborer Ammunition Assembly Relationship Specialty Start Date End Date Celina Handley NP [address] [place] [phone] PCP - General 03/10/25 documented as of this encounter
--- OUTSIDE RECORDS SUMMARY | 2025-08-06 22:21 | XMS_ITS | Encounter Summary ---
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 Social History Tobacco Use [...] Diagnosis Comments CBC WITH AUTO DIFFERENTIAL Routine 08/03/2025 7:32 AM EDT Other half-way (current) 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 CBC AND DIFFERENTIAL Routine 08/03/2025 7:32 AM EDT Other half-way (current) 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 documented in this encounter Results * (ABNORMAL) CBC auto differential (08/03/2025 7:32 AM EDT) WBC 7.8 4.8 - 10.8 K/[facility] LAB HEMETOLOGY METHOD 08/03/2025 11:41 AM EDT [facility] LAB RBC 4.10 3.80 - 5.50 M/[facility] LAB HEMETOLOGY METHOD 08/03/2025 11:41 AM [facility] LAB Hemoglobin 10.2(L) 12.0 - 18.0 g/dL LAB HEMETOLOGY METHOD 08/03/2025 11:41 AM [facility] LAB Hematocrit 33.1(L) 36.0 - 48.0 % LAB HEMETOLOGY METHOD 08/03/2025 11:41 AM [facility] LAB MCV 80.9 79.0 - 98.0 FL LAB HEMETOLOGY METHOD 08/03/2025 11:41 AM [facility] LAB MCH 24.9(L) 27.0 - 32.0 pcg LAB HEMETOLOGY METHOD 08/03/2025 11:41 AM [facility] LAB MCHC 30.8(L) 32.0 - 37.0 g/dL LAB HEMETOLOGY METHOD 08/03/2025 11:41 AM [facility] LAB RDW 14.4 11.0 - 15.0 % LAB HEMETOLOGY METHOD 08/03/2025 11:41 AM [facility] LAB Platelets 264 130 - 400 K/mcL LAB HEMETOLOGY METHOD 08/03/2025 11:41 AM [facility] LAB MPV 11.9(H) 7.0 - 11.0 FL LAB HEMETOLOGY METHOD 08/03/2025 11:41 AM [facility] LAB NRBC 0.0 <1.0 % LAB HEMETOLOGY METHOD 08/03/2025 11:41 AM [facility] LAB NRBC Absolute 0.00 <0.10 K/mcL LAB HEMETOLOGY METHOD 08/03/2025 11:41 AM [facility] LAB Neutrophils Relative 63.8 % LAB HEMETOLOGY METHOD 08/03/2025 11:41 AM [facility] LAB Lymphocytes Relative 24.0 % LAB HEMETOLOGY METHOD 08/03/2025 11:41 AM EDT [facility] LAB Monocytes Relative 8.1 % LAB [facility]EMETOLOGY [facility]25 [facility] Eosinophils Relative 3.1 % LAB HEMETOLOGY METHOD 08/03/2025 11:41 AM [facility] LAB Basophils Relative 0.5 % LAB HEMETOLOGY METHOD [facility]/03[facility]2025 11[facility] Immature Granulocytes Relative 0.5 % LAB HEMETOLOGY METHOD 08/03/2025 11:[facility] Neutrophils Absolute 4.97 1.50 - 7.00 K/mcL LAB HEMETOLOGY METHOD 08/03/2025 11:41 AM [facility] LAB Lymphocytes Absolute 1.87 1.00 - 5.00 K/mcL LAB HEMETOLOGY METHOD 08/03/2025 11:41 AM [facility] LAB Monocytes Absolute 0.63 0.20 - 1.00 K/mcL LAB HEMETOLOGY METHOD 08/03/2025 11:41 AM [facility] LAB Eosinophils Absolute 0.24 0.00 - 0.50 K/mcL LAB HEMETOLOGY METHOD 08/03/2025 11:41 AM [facility] LAB Basophils Absolute 0.04 0.00 - 0.20 K/mcL LAB HEMETOLOGY METHOD 08/03/2025 11:41 AM [facility] LAB Immature Granulocytes Absolute 0.04(H) 0.00 - 0.03 K/mcL LAB HEMETOLOGY METHOD 08/03/2025 11:41 AM [facility] LAB Blood Venous blood specimen / Unknown Venipuncture / Unknown 08/03/2025 7:32 AM EDT 08/03/2025 10:38 AM EDT us Celina Handley NP LAB BLOOD ORDERABLES Final R esult [facility] LAB [address] [place] [address], documented in this encounter Visit Diagnoses Diagnosis Other half-way (current) 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 documented in this encounter Care Teams Blindstitch Lapel Padder Relationship Specialty Start Date End Date Celina Handley NP [address] [place] [phone] PCP - General 03/10/25 documented as of this encounter
--- OUTSIDE RECORDS SUMMARY | 2025-08-06 22:21 | XMS_ITS | Clinical Summary ---
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 07/19/2025 Lab Requisition [facility] Lab [address] [place] [address] Celina Handley NP Other fci (current) 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 07/05/2025 Lab Requisition [facility] Lab [address] [place] [address] Celina Handley NP Other fci (current) 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 06/22/2025 Lab Requisition [facility] Lab [address] [place] [phone] Celina Handley NP Other termite inspector (current) 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 from Last 3 Months [...] Cervical Cancer Screening: P ap Smear 2015 HPV Vaccines (1 - 3-dose SCD M series) 2021 Depression Screening 10/21/2024 HIV Screening 03/09/2025 Hepatitis C Screening 03/09/2025 Medicare Annual Wellness Visit 03/09/2025 Social Influencers of Health Screening 03/09/2025 COVID-19 Vaccine (1 - 2024-2 5 season) 2025 Influenza Vaccine (#1) 2025 [...] DIFFERENTIAL Routine 08/03/2025 7:32 AM EDT 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 termite inspector (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) 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 CBC AND DIFFERENTIAL Routine 08/03/2025 7:32 AM EDT Other termite inspector (current) 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 CBC WITH AUTO DIFFERENTIAL Routine 07/20/2025 7:55 AM EDT Other termite inspector (current) 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 CBC AND DIFFERENTIAL Routine 07/20/2025 7:55 AM EDT Other fci (current) 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 CBC WITH AUTO DIFFERENTIAL Routine 07/06/2025 6:06 AM EDT Other termite inspector (current) 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 CBC AND DIFFERENTIAL Routine 07/06/2025 6:06 AM EDT Other termite inspector (current) 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 CBC WITH AUTO DIFFERENTIAL Routine 06/23/2025 5:40 AM EDT Other termite inspector (current) 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 CBC AND DIFFERENTIAL Routine 06/23/2025 5:40 AM EDT Other fci (current) 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 from Last 3 Months Results * (ABNORMAL) CBC auto differential (08/03/2025 7:32 AM EDT) Only the most recent of4 resultswithin the time period is included. [facility] Signature WBC 7.8 4.8 - 10.8 K/mcL LAB HEMETOLOGY METHOD 08/03/2025 11:41 AM [facility] LAB RBC 4.10 3.80 - 5.50 M/mcL LAB HEMETOLOGY METHOD 08/03/2025 11:41 AM [facility] LAB Hemoglobin 10.2(L) 12.0 - 18.0 g/dL LAB HEMETOLOGY METHOD 08/03/2025 11:41 AM [facility] LAB Hematocrit 33.1(L) 36.0 - 48.0 % LAB HEMETOLOGY METHOD 08/03/2025 11:41 AM [facility] LAB MCV 80.9 79.0 - 98.0 FL LAB HEMETOLOGY METHOD 08/03/2025 11:41 AM [facility] LAB MCH 24.9(L) 27.0 - 32.0 pcg LAB HEMETOLOGY METHOD 08/03/2025 11:41 AM [facility] LAB MCHC 30.8(L) 32.0 - 37.0 g/dL LAB HEMETOLOGY METHOD 08/03/2025 11:41 AM [facility] LAB RDW 14.4 11.0 - 15.0 % LAB HEMETOLOGY METHOD 08/03/2025 11:41 AM [facility] LAB Platelets 264 130 - 400 K/mcL LAB HEMETOLOGY METHOD 08/03/2025 11:41 AM [facility] LAB MPV 11.9(H) 7.0 - 11.0 FL LAB HEMETOLOGY METHOD 08/03/2025 11:41 AM [facility] LAB NRBC 0.0 <1.0 % LAB HEMETOLOGY METHOD 08/03/2025 11:41 AM [facility] LAB NRBC Absolute 0.00 <0.10 K/mcL LAB HEMETOLOGY METHOD 08/03/2025 11:41 AM [facility] LAB Neutrophils Relative 63.8 % LAB HEMETOLOGY METHOD 08/03/2025 11:41 AM [facility] LAB Lymphocytes Relative 24.0 % LAB HEMETOLOGY METHOD 08/03/2025 11:41 AM [facility] LAB Monocytes Relative 8.1 % LAB HEMETOLOGY METHOD 08/03/2025 11:41 AM [facility] LAB Eosinophils Relative 3.1 % LAB HEMETOLOGY METHOD 08/03/2025 11:41 AM [facility] LAB Basophils Relative 0.5 % LAB HEMETOLOGY METHOD 08/03/2025 11:41 AM [facility] LAB Immature Granulocytes Relative 0.5 % LAB HEMETOLOGY METHOD 08/03/2025 11:41 AM [facility] LAB Neutrophils Absolute 4.97 1.50 - 7.00 K/mcL LAB HEMETOLOGY METHOD 08/03/2025 11:41 AM [facility] LAB Lymphocytes Absolute 1.87 1.00 - 5.00 K/mcL LAB HEMETOLOGY METHOD 08/03/2025 11:41 AM [facility] LAB Monocytes Absolute 0.63 0.20 - 1.00 K/mcL LAB HEMETOLOGY METHOD 08/03/2025 11:41 AM EDT [facility] Eosinophils Absolute 0.24 0.00 - 0.50 K/[facility] LAB HEMETOLOGY METHOD 08/03/2025 11:41 AM EDT [facility] LAB Basophils Absolute 0.04 0.00 - 0.20 K/[facility] LAB HEMETOLOGY METHOD 08/03/2025 11:41 AM EDT [facility] Immature Granulocytes Absolute 0.04(H) 0.00 - 0.03 K/[facility] LAB HEMETOLOGY METHOD 08/03/2025 11:41 AM EDT [facility] Blood Venous blood specimen / Unknown Venipuncture / Unknown 08/03/2025 7:32 AM EDT 08/03/2025 10:38 AM EDT us Celina Handley NP LAB BLOOD ORDERABLES Final R esult [facility] [address] [place] [address], from Last 3 Months Insurance [place]ICAID - [place] [employer] MEDICARE ADVANTAGE Care Teams Vegetable Canner Relationship Specialty Start Date End Date Celina Handley NP [address] [place] [phone] PCP - General 03/10/25
--- OUTSIDE RECORDS SUMMARY | 2025-08-06 22:21 | XMS_ITS | Encounter Summary ---
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 Social History Tobacco Use [...] Diagnosis Comments CBC WITH AUTO DIFFERENTIAL Routine 07/20/2025 7:55 AM EDT Other nursing home (current) 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 CBC AND DIFFERENTIAL Routine 07/20/2025 7:55 AM EDT Other nursing home (current) 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 documented in this encounter Results * (ABNORMAL) CBC auto differential (07/20/2025 7:55 AM EDT) WBC 6.9 4.8 - 10.8 K/[facility] LAB HEMETOLOGY METHOD 07/20/2025 9:34 AM EDT [facility] LAB RBC 4.40 3.80 - 5.50 M/[facility] LAB HEMETOLOGY METHOD 07/20/2025 9:34 AM [facility] LAB Hemoglobin 11.1(L) 12.0 - 18.0 g/dL LAB HEMETOLOGY METHOD 07/20/2025 9:34 AM [facility] LAB Hematocrit 36.4 36.0 - 48.0 % LAB HEMETOLOGY METHOD 07/20/2025 9:34 AM [facility] LAB MCV 82.2 79.0 - 98.0 FL LAB HEMETOLOGY METHOD 07/20/2025 9:34 AM [facility] LAB MCH 25.1(L) 27.0 - 32.0 pcg LAB HEMETOLOGY METHOD 07/20/2025 9:34 AM [facility] LAB MCHC 30.5(L) 32.0 - 37.0 g/dL LAB HEMETOLOGY METHOD 07/20/2025 9:34 AM [facility] LAB RDW 13.6 11.0 - 15.0 % LAB HEMETOLOGY METHOD 07/20/2025 9:34 AM [facility] LAB Platelets 239 130 - 400 K/mcL LAB HEMETOLOGY METHOD 07/20/2025 9:34 AM [facility] LAB MPV 11.9(H) 7.0 - 11.0 FL LAB HEMETOLOGY METHOD 07/20/2025 9:34 AM [facility] LAB NRBC 0.0 <1.0 % LAB HEMETOLOGY METHOD 07/20/2025 9:34 AM [facility] LAB NRBC Absolute 0.00 <0.10 K/mcL LAB HEMETOLOGY METHOD 07/20/2025 9:34 AM [facility] LAB Neutrophils Relative 65.2 % LAB HEMETOLOGY METHOD 07/20/2025 9:34 AM [facility] LAB Lymphocytes Relative 20.6 % LAB HEMETOLOGY METHOD 07/20/2025 9:34 AM [facility] LAB Monocytes Relative 9.4 % LAB HEMETOLOGY METHOD 07/20/2025 9:34 AM EDT [facility] LAB Eosinophils Relative 3.3 % LAB HEMETOLOGY METHOD 07/20/2025 9:34 AM EDT [facility] LAB Basophils Relative 0.3 % LAB HEMETOLOGY METHOD 07/20/2025 9:34 AM EDT [facility] LAB Immature Granulocytes Relative 1.2 % LAB HEMETOLOGY METHOD 07/20/2025 9:34 AM EDT [facility] LAB Neutrophils Absolute 4.50 1.50 - 7.00 K/mcL LAB HEMETOLOGY METHOD 07/20/2025 9:34 AM EDT [facility] LAB Lymphocytes Absolute 1.42 1.00 - 5.00 K/mcL LAB HEMETOLOGY METHOD 07/20/2025 9:34 AM EDT [facility] LAB Monocytes Absolute 0.65 0.20 - 1.00 K/mcL LAB HEMETOLOGY METHOD 07/20/2025 9:34 AM EDT [facility] LAB Eosinophils Absolute 0.23 0.00 - 0.50 K/mcL LAB HEMETOLOGY METHOD 07/20/2025 9:34 AM EDT [facility] LAB Basophils Absolute 0.02 0.00 - 0.20 K/mcL LAB HEMETOLOGY METHOD 07/20/2025 9:34 AM EDT [facility] LAB Immature Granulocytes Absolute 0.08(H) 0.00 - 0.03 K/mcL LAB HEMETOLOGY METHOD 07/20/2025 9:34 AM EDT [facility] LAB Blood Venous blood specimen / Unknown Venipuncture / Unknown 07/20/2025 7:55 AM EDT 07/20/2025 9:03 AM EDT us Celina Handley NP LAB BLOOD ORDERABLES Final R esult [facility] [address] [place] [address], documented in this encounter Visit Diagnoses Diagnosis Other nursing home (current) 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 documented in this encounter Care Teams Roustabout Crew Pusher Relationship Specialty Start Date End Date Celina Handley NP [address] [place] [phone] PCP - General 03/10/25 documented as of this encounter
--- OUTSIDE RECORDS SUMMARY | 2025-08-06 22:21 | XMS_ITS | Encounter Summary ---
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 Social History Tobacco Use [...] DIFFERENTIAL Routine 03/23/2025 6:23 AM EDT Other detention (current) 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 CBC AND DIFFERENTIAL Routine 03/23/2025 6:23 AM EDT Other detention (current) 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 documented in this encounter Results * (ABNORMAL) CBC auto differential (03/23/2025 6:23 AM EDT) WBC 7.6 4.8 - 10.8 K/[facility] LAB HEMETOLOGY METHOD 03/23/2025 11:55 AM EDT [facility] LAB RBC 4.60 3.80 - 5.50 M/[facility] LAB HEMETOLOGY METHOD 03/23/2025 11:[address] [facility] LAB Hemoglobin 12.9 12.0 - 18.0 g/dL LAB HEMETOLOGY METHOD 03/23/2025 11:[address] [facility] LAB Hematocrit 38.9 36.0 - 48.0 % LAB HEMETOLOGY METHOD 03/23/2025 11:[address] [facility] LAB MCV 85.1 79.0 - 98.0 FL LAB HEMETOLOGY METHOD 03/23/2025 11:[address] [facility] LAB MCH 28.2 27.0 - 32.0 pcg LAB HEMETOLOGY METHOD 03/23/2025 11:[address] [facility] LAB MCHC 33.2 32.0 - 37.0 g/dL LAB HEMETOLOGY METHOD 03/23/2025 11:[address] [facility] LAB RDW 13.2 11.0 - 15.0 % LAB HEMETOLOGY METHOD 03/23/2025 11:[address] [facility] LAB Platelets 223 130 - 400 K/mcL LAB HEMETOLOGY METHOD 03/23/2025 11:[address] [facility] LAB MPV 12.2(H) 7.0 - 11.0 FL LAB HEMETOLOGY METHOD 03/23/2025 11:[address] [facility] LAB NRBC 0.0 <1.0 % LAB HEMETOLOGY METHOD 03/23/2025 11:[address] [facility] LAB NRBC Absolute 0.00 <0.10 K/mcL LAB HEMETOLOGY METHOD 03/23/2025 11:[address] [facility] LAB Neutrophils Relative 65.5 % LAB HEMETOLOGY METHOD 03/23/2025 11:[address] [facility] LAB Lymphocytes Relative 25.1 % LAB HEMETOLOGY METHOD 03/23/2025 11:[address] [facility] LAB Monocytes Relative 6.0 % LAB HEMETOLOGY METHOD 03/23/2025 11:55 AM EDT [facility] LAB Eosinophils Relative 2.0 % LAB HEMETOLOGY METHOD 03/23/2025 11:55 AM EDT [facility] LAB Basophils Relative 0.5 % LAB HEMETOLOGY METHOD 03/23/2025 11:55 AM EDT [facility] LAB Immature Granulocytes Relative 0.9 % LAB HEMETOLOGY METHOD 03/23/2025 11:55 AM EDT [facility] LAB Neutrophils Absolute 5.00 1.50 - 7.00 K/mcL LAB HEMETOLOGY METHOD 03/23/2025 11:55 AM EDT [facility] LAB Lymphocytes Absolute 1.92 1.00 - 5.00 K/mcL LAB HEMETOLOGY METHOD [facility]25 [facility] Monocytes Absolute 0.46 0.20 - 1.00 K/mcL LAB HEMETOLOGY METHOD 03/23/2025 11:55 AM EDT [facility] LAB Eosinophils Absolute 0.15 0.00 - 0.50 K/mcL LAB HEMETOLOGY METHOD 03/23/2025 11:[facility] Basophils Absolute 0.04 0.00 - 0.20 K/mcL LAB HEMETOLOGY METHOD 03/23/2025 11:55 AM EDT [facility] LAB Immature Granulocytes Absolute 0.07(H) 0.00 - 0.03 K/mcL LAB HEMETOLOGY METHOD 03/23/2025 11:55 AM EDT [facility] LAB Blood Venous blood specimen / Unknown 03/23/2025 6:23 AM EDT 03/23/2025 11:26 AM EDT us Celina Handley NP LAB BLOOD ORDERABLES Final R esult [facility] LAB [address] [place] [address], documented in this encounter Visit Diagnoses Diagnosis Other detention (current) 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 documented in this encounter Care Teams Community Engagement Leader Relationship Specialty Start Date End Date Celina Handley NP [address] [place] [phone] PCP - General 03/10/25 documented as of this encounter
--- NOTE | 2025-08-06 22:38 | ED.GENADULT ---
HPI - General Adult General Chief complaint: General Medical Stated complaint: high blood sugar Time Seen by Provider: 08/06/25 22:06 Source: patient Mode of arrival: ambulatory Limitations: no limitations History of Present Illness ED Provider: Dr. Estelle Garcia HPI narrative: Patient comes to the emergency room complaining of hyperglycemia of 404. Patient states that she has been told by her PCP that if her glucose is above 400, she needs to go to the emergency room. Patient states that before she check her glucose, she drank a can of soda. When patient arrived, patient's glucose was in the low 200s. Patient asymptomatic. Patient states that she has been taking Jardiance for about a month now. Also patient should states that she has a bump on the right side of her back that has been there since 2017. However, patient states that for the last few days it has been a little bit red. Denies fever or chills. Related Data Home Medications ?Medication ?Instructions ?Recorded ?Confirmed atomoxetine 40 mg capsule 40 mg PO QAM 07/12/25 07/12/25 atorvastatin 10 mg tablet (Lipitor) 10 mg PO DAILY 07/12/25 07/12/25 atropine 1 % eye drops drp ophthalmic (eye) 07/12/25 07/12/25 sennosides 8.6 mg-docusate sodium 1 tab-cap PO BEDTIME PRN 07/12/25 07/12/25 50 mg capsule (Senna Plus) constipation Previous Rx's ?Medication ?Instructions ?Recorded albuterol sulfate 90 mcg/actuation 2 puff inhalation RQ4H PRN short 11/01/23 aerosol inhaler (Ventolin HFA) of breath 30 days #1 inhaler clonidine HCl 0.1 mg tablet 0.1 mg PO BID PRN Anxiety 30 days 11/01/23 #60 tabs metformin 1,000 mg tablet 1,000 mg PO BID 30 days #60 tabs 11/01/23 empagliflozin 10 mg tablet 10 mg PO DAILY #90 tabs 07/12/25 (Jardiance) blood sugar diagnostic (Kiboo.comuch #100 ea 07/22/25 Ultra Test strips) blood-glucose meter (skedge.meTouch #1 ea 07/22/25 Ultra2 Meter) lancets 33 gauge (OneTouch Delica #100 ea 07/22/25 Plus Lancet) cephalexin 500 mg capsule 500 mg PO BID #14 caps 08/06/25 fluconazole 200 mg tablet 200 mg PO DAILY #1 tab 08/06/25 Allergies Allergy/AdvReac Type Severity Reaction Status Date / Time clotrimazole Allergy Severe Rash Verified 08/06/25 20:33 cat dander (cats) Allergy Intermediate Eye Verified 08/06/25 20:33 Swelling house dust Allergy Intermediate Sneezing Verified 08/06/25 20:33 olanzapine Allergy Muscle Verified 08/06/25 20:33 cramps seafood Allergy Anaphylaxis Verified 08/06/25 20:33 Review of Systems Review of Systems: Constitutional : No Weight loss, No Fever, No Chills, No Night Sweats, No Fatigue, No Malaise ENT/Mouth : No Hearing loss, No Ear Pain, No Nasal Congestion, No Sinus Pain, No Hoarseness, No sore throat, No Rhinorrhea, No Swallowing Difficulty Eyes: No Eye Pain, No Swelling, No Redness, No Foreign Body, No Discharge, No Vision Changes Cardiovascular : No Chest Pain, No SOB, No Dyspnea on Exertion, No Orthopnea, No Edema, No Palpitations Respiratory : No Cough, No Sputum, No Wheezing, No Smoke Exposure, No Dyspnea Gastrointestinal : No Nausea, No Vomiting, No Diarrhea, No Constipation, No abdominal Pain, No Hematochezia, No Melena Genitourinary : no irregular bleeding, No Dysuria, No Urinary Frequency, No Hematuria, No Urinary Incontinence, No Urgency, No Flank Pain, No Urinary Flow Changes, No Hesitancy Musculoskeletal : No joint pain, No Myalgias, No Joint Swelling Skin : Complaining of erythema in a bumped in the left side of the back Neuro : No Weakness, No Numbness, No Paresthesias, No Loss of Consciousness, No Dizziness, No Headache Psych : No Anxiety/Panic, No Depression, No SI/HI/AH/VH, No Social Issues, Heme/Lymph: No Bruising, No Bleeding,No Lymphadenopathy Endocrine : No Polyuria, No Polydipsia, No Temperature Intolerance, complaining of high blood sugar [facility] Past Medical History Medical History (Updated 08/06/25 @ 22:47 by Estelle Garcia MD) Asthma GERD (gastroesophageal reflux disease) Diabetes mellitus Anxiety Schizoaffective disorder Bipolar I disorder Delusional disorder Surgical History History of lumpectomy History of tonsillectomy and adenoidectomy History of surgery of head Family History Family History Other Family history of breast cancer Mental health disorder Social History Social History Household Members: Other Household Members Other:: detention Housing: Other Housing Other:: detention Do you presently have visiting nurse or other home services: No Patient Tobacco Use Status: Never used Tobacco e-Cigarette/Vaping Use: Never Used Second Hand Smoke Exposure: No Advance Directives: No Advance Directives Information Provided: Yes service: No Current occupational status: disabled Sexual orientation: Lesbian/Ponce/Homosexual Cognitive needs: No Hearing needs: No Vision needs: Yes (Glasses) Physical Exam ED Exam Exam: Appearance: Alert. Oriented X3. No acute distress. Eyes: Pupils equal, round and reactive to light. ENT: Pharynx normal. Neck: Normal inspection. Neck supple. No lymph nodes noted. No crepitus CVS: Normal heart rate and rhythm. Pulses normal. Normal S1 and S2 Respiratory: No respiratory distress. Breath sounds normal. No Wheezing. No rales Abdomen: Soft and nontender. No rigidity. No distention. Skin: Skin warm and dry. Normal skin color. Normal skin turgor. There is slight erythema over a red mobile mass ( 0.5 cm by 0.5 cm) Extremities: No lower extremity edema. No Lacerations. No Rash Neuro: Oriented X 3. No motor deficit. No sensory deficit. Moving all extremities. No slurred speech. CN 2 through 12 grossly intact Psych: calm, cooperative, normal affect Vital Signs: Vital Signs - 24 hr 08/06/25 20:30 08/06/25 22:00 Temperature 97.7 F 98.2 F Pulse Rate 104 H 104 H Respiratory Rate 20 16 Blood Pressure 139/71 144/71 H Pulse Oximetry 96 95 Oxygen Delivery Method Room Air Room Air BMI result Body Mass Index 41.6 Medical Decision Making Medical Decision Making MDM Narrative: My interpretation of labs: No significant abnormality in patient's hematology or chemistry other than the elevated glucose At this time, patient's glucose 223. No need for any further intervention. Patient has a very slight erythema over a bumped it has been there for over 7 years. Discussed with the patient that we can start antibiotics for cellulitis patient agrees with plan. Patient requested that the mass be I and D. However, it is very small, there is not enough fluid in there, it is indurated and it has been there 7 years. At this time, there is no acute indication for I and D. Discussed with the patient that she will be on p.o. antibiotics. Patient requesting dose of fluconazole since she is prone to yeast infections Lab Data 08/06/25 20:45 08/06/25 20:45 Labs: Lab Results 08/06/25 08/06/25 08/06/25 Range/Units 20:38 20:45 20:50 WBC 8.9 (4.8-10.8) X10*3/uL RBC 4.08 L (4.20-5.50) X10*6/uL Hgb 10.2 L D (12.0-16.0) g/dl Hct 32.4 L (37.0-47.0) % MCV 79.4 L (80.0-98.0) fL MCH 25.0 L (27.0-33.0) pg MCHC 31.5 (31.0-35.0) g/dl RDW 14.3 (11.0-16.0) % Plt Count 267 (160-400) X10*3/uL MPV 11.1 (9.4-12.3) fL Immature Gran % (Auto) 0.5 H (0.0-0.4) % Neut % (Auto) 72.1 (45-73) % Lymph % (Auto) 18.2 L (20-40) % [place] % (Auto) 7.1 (2-11) % Eos % (Auto) 1.8 (0-4) % Baso % (Auto) 0.3 (0-2) % Lymph # (Auto) 1.6 (1.2-4.9) X10*3/uL [place] # (Auto) 0.6 (0.1-1.2) X10*3/uL Eos # (Auto) 0.2 (0.0-0.4) X10*3/uL Baso # (Auto) 0.0 (0.0-0.2) X10*3/uL Abs Immat Gran (auto) 0.04 H (0.00-0.03) X10*3/uL Absolute Neuts (auto) 6.4 (2.0-8.3) x10*3/uL Absolute Nucleated RBC 0.000 (0.0-0.012) X10*3/uL Nucleated RBC % (auto) 0.0 (0.0-0.2) /100WBC Sodium 139 (135-145) mmol/L Potassium 3.7 (3.3-5.1) mmol/L Chloride 105 (96-108) mmol/L Carbon Dioxide 21 L (22-29) mmol/L Anion Gap 17 (12-20) BUN 12 (9-16) mg/dL Creatinine 0.64 (0.5-1.4) mg/dL Estim Creat Clear Calc 139.1 Estimated GFR > 60 POC Glucose 209 H (60-115) mg/dL Random Glucose 223 H (60-115) mg/dL Calcium 9.5 (8.4-10.2) mg/dL Total Bilirubin 0.4 (0.0-1.0) mg/dL AST 180 H (5-31) U/L ALT 177 H (0-31) U/L Alkaline Phosphatase 78 (39-117) U/L Total Protein 7.4 (6.5-8.0) g/dL Albumin 4.6 (3.5-5.0) g/dL Beta-Hydroxybutyrate 0.20 (0.02-0.27) mmol/L Beta HCG, Quant < 2 mIU/mL Urine Color Yellow Urine Appearance Clear Urine pH 5.5 (5.0-9.0) Ur Specific [place] >= 1.030 H (1.005-1.025) Urine Protein Negative (Neg-Trace) mg/dL Urine Glucose (UA) >=1000 H (Negative) mg/dL Urine Ketones Trace (Negative) mg/dL Urine Blood Negative (Negative) Urine Nitrite Negative (Negative) Ur Leukocyte Esterase Negative (Negative) Urine RBC 0-2 (0-2) /HPF Urine WBC 0-5 (0-5) /HPF Ur Squamous Epith Cells 0-2 (0-2) /HPF Urine Bacteria None Seen (None Seen) Hyaline Casts 0-2 (0-2) /LPF Discharge Plan Discharge Clinical Impression: Cellulitis, Acute hyperglycemia Patient Disposition: Home, Self-Care Instructions: Cellulitis (ED), Diabetic Hyperglycemia (ED) Additional Instructions: Please follow-up with your primary care physician tomorrow. If you have any worsening or new symptoms, please return to the emergency room or call 911 Prescriptions: New cephalexin 500 mg capsule 500 mg PO BID Qty: 14 0RF fluconazole 200 mg tablet 200 mg PO DAILY Qty: 1 0RF No Action (DME) blood-glucose meter [OneTouch Ultra2 Meter] Misc See Rx Instructions .Route Qty: 1 0RF Rx Instructions: As directed; to check sugars BID (DME) OneTouch Ultra Test Strip See Rx Instructions .Route Qty: 100 0RF Rx Instructions: As directed; to check sugars BID (DME) lancets [OneTouch Delica Plus Lancet] 33 gauge misc See Rx Instructions .Route Qty: 100 0RF Rx Instructions: As directed; to check sugars BID clonidine HCl 0.1 mg tablet 0.1 mg PO BID PRN (Reason: Anxiety) 30 Days Qty: 60 0RF metformin 1,000 mg tablet 1,000 mg PO BID 30 Days Qty: 60 0RF albuterol sulfate [Ventolin HFA] 90 mcg/actuation Hfa Aerosol Inhaler 2 puff inhalation RQ4H PRN (Reason: short of breath) 30 Days Qty: 1 0RF atorvastatin [Lipitor] 10 mg tablet 10 mg PO DAILY atropine 1 % drops ophthalmic (eye) atomoxetine 40 mg capsule 40 mg PO QAM Senna Plus 8.6-50 mg capsule 1 tab-cap PO BEDTIME PRN (Reason: constipation) Jardiance 10 mg tablet 10 mg PO DAILY Qty: 90 0RF Print Language: American
[2025-08-06 23:45] VITALS: BP 144/71; PULSE 104; RESP 16; TEMP 36.8; O2SAT 95
== END 2025-08-06 23:45 | disposition home or self-care (01) ==
PROVIDERS: Emergency Provider Emergency Medicine
DX: L03.319 Cellulitis of trunk, unspecified (principal); E11.65 Type 2 diabetes mellitus with hyperglycemia; R10.22 Pelvic and perineal pain left side; Z79.84 Long term (current) use of oral hypoglycemic drugs; Z79.899 Other long term (current) 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
CPT/HCPCS: 36415; 80053; 81001; 81003; 82010; 82947; 84702; 85025; 99283

== ENCOUNTER 2025-08-20 13:11 | Outpatient (AMB) | payer OTHER, MEDICAID, SELFPAY ==
[2025-08-20 13:17] VITALS: BP 140/110; PULSE 90; TEMP 36.2; O2SAT 98; BMI 38.2
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
== END 2025-08-20 14:14 | disposition home or self-care (01) ==
LOC: HO.HMCH 13:12
PROVIDERS: Visit Provider Nurse Practitioner Family
DX: E11.9 Type 2 diabetes mellitus without complications (principal)

== ENCOUNTER 2025-09-20 07:18 | Outpatient (REF) | payer MEDICARE, SELFPAY ==
--- OUTSIDE RECORDS SUMMARY | 2025-09-20 07:21 | XMS_ITS | Encounter Summary ---
Author Organization [facility] Address [address] [place] [address] Care Team Providers Care Evidence Technician Name Role Phone Celina Handley NP Primary Care Provider Encounter Details Date Type Department Care Team (Late st Contact Info) Description 03/08/2025 Lab Requisition [facility] - Main Lab [address] [facility] [employer] [place] [address] Celina Handley NP [address] [place] [address] Other roasterman (current) 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 Social History Tobacco Use [...] DIFFERENTIAL Routine 03/09/2025 7:56 AM EDT Other shelter (current) 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 CBC AND DIFFERENTIAL Routine 03/09/2025 7:56 AM EDT Other shelter (current) 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 documented in this encounter Results * (ABNORMAL) CBC auto differential (03/09/2025 7:56 AM EDT) WBC 6.7 4.8 - 10.8 K/[facility] LAB HEMETOLOGY METHOD 03/09/2025 9:38 AM EDT [facility] LAB RBC 4.80 3.80 - 5.50 M/[facility] LAB HEMETOLOGY METHOD 03/09/2025 9:38 AM [facility] LAB Hemoglobin 13.9 12.0 - 18.0 g/dL LAB HEMETOLOGY METHOD 03/09/2025 9:38 AM [facility] LAB Hematocrit 41.2 36.0 - 48.0 % LAB HEMETOLOGY METHOD 03/09/2025 9:38 AM [facility] LAB MCV 85.7 79.0 - 98.0 FL LAB HEMETOLOGY METHOD 03/09/2025 9:38 AM [facility] LAB MCH 28.9 27.0 - 32.0 pcg LAB HEMETOLOGY METHOD 03/09/2025 9:38 AM [facility] LAB MCHC 33.7 32.0 - 37.0 g/dL LAB HEMETOLOGY METHOD 03/09/2025 9:38 AM [facility] LAB RDW 12.7 11.0 - 15.0 % LAB HEMETOLOGY METHOD 03/09/2025 9:38 AM [facility] LAB Platelets 203 130 - 400 K/mcL LAB HEMETOLOGY METHOD 03/09/2025 9:38 AM [facility] LAB MPV 11.8(H) 7.0 - 11.0 FL LAB HEMETOLOGY METHOD 03/09/2025 9:38 AM [facility] LAB NRBC 0.0 <1.0 % LAB HEMETOLOGY METHOD 03/09/2025 9:38 AM [facility] LAB NRBC Absolute 0.00 <0.10 K/mcL LAB HEMETOLOGY METHOD 03/09/2025 9:38 AM [facility] LAB Neutrophils Relative 56.4 % LAB HEMETOLOGY METHOD 03/09/2025 9:38 AM [facility] LAB Lymphocytes Relative 32.6 % LAB HEMETOLOGY METHOD 03/09/2025 9:38 AM [facility] LAB Monocytes Relative 8.4 % LAB HEMETOLOGY METHOD 03/09/2025 9:38 AM EDT [facility] LAB Eosinophils Relative 1.9 % LAB HEMETOLOGY METHOD 03/09/2025 9:38 AM EDT [facility] LAB Basophils Relative 0.4 % LAB HEMETOLOGY METHOD 03/09/2025 9:38 AM EDT [facility] LAB Immature Granulocytes Relative 0.3 % LAB HEMETOLOGY METHOD 03/09/2025 9:38 AM EDT [facility] LAB Neutrophils Absolute 3.77 1.50 - 7.00 K/mcL LAB HEMETOLOGY METHOD 03/09/2025 9:38 AM EDT [facility] LAB Lymphocytes Absolute 2.18 1.00 - 5.00 K/mcL LAB HEMETOLOGY METHOD 03/09/2025 9:38 AM EDT [facility] LAB Monocytes Absolute 0.56 0.20 - 1.00 K/mcL LAB HEMETOLOGY METHOD 03/09/2025 9:38 AM EDT [facility] LAB Eosinophils Absolute 0.13 0.00 - 0.50 K/mcL LAB HEMETOLOGY METHOD 03/09/2025 9:38 AM EDT [facility] LAB Basophils Absolute 0.03 0.00 - 0.20 K/mcL LAB HEMETOLOGY METHOD 03/09/2025 9:38 AM EDT [facility] LAB Immature Granulocytes Absolute 0.02 0.00 - 0.03 K/mcL LAB HEMETOLOGY METHOD 03/09/2025 9:38 AM EDT [facility] LAB Blood Venous blood specimen / Unknown Venipuncture / Unknown 03/09/2025 7:56 AM EDT 03/09/2025 8:45 AM EDT us Celina Handley NP LAB BLOOD ORDERABLES Final R esult [facility] LAB [address] [place] [address], documented in this encounter Visit Diagnoses Diagnosis Other shelter (current) 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 documented in this encounter Care Teams Evidence Technician Relationship Specialty Start Date End Date Celina Handley NP [address] [place] [phone] PCP - General 03/10/25 documented as of this encounter
--- OUTSIDE RECORDS SUMMARY | 2025-09-20 07:21 | XMS_ITS | Clinical Summary ---
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 07/19/2025 Lab Requisition [facility] Lab [address] [place] [address] Celina Handley NP Other usp (current) 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 07/05/2025 Lab Requisition [facility] Lab [address] [place] [address] Celina Handley NP Other usp (current) 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 06/22/2025 Lab Requisition [facility] Lab [address] [place] [phone] Celina Handley NP 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 from Last 3 Months [...] Screening 03/09/2025 COVID-19 Vaccine (1 - 2024-2 6 season) 2025 Influenza Vaccine (#1) 2025 RSV [...] DIFFERENTIAL Routine 08/03/2025 7:32 AM EDT 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 CBC AND DIFFERENTIAL Routine 08/03/2025 7:32 AM EDT 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 CBC WITH AUTO DIFFERENTIAL Routine 07/20/2025 7:55 AM EDT 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 CBC AND DIFFERENTIAL Routine 07/20/2025 7:55 AM EDT Other usp (current) 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 CBC WITH AUTO DIFFERENTIAL Routine 07/06/2025 6:06 AM EDT 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 [facility] Signature WBC 7.8 4.8 - 10.8 K/mcL LAB HEMETOLOGY METHOD 08/03/2025 11:[address] [facility] LAB RBC 4.10 3.80 - 5.50 M/mcL LAB HEMETOLOGY METHOD 08/03/2025 11:[address] [facility] LAB Hemoglobin 10.2(L) 12.0 - 18.0 g/dL LAB HEMETOLOGY METHOD 08/03/2025 11:[address] [facility] LAB Hematocrit 33.1(L) 36.0 - 48.0 % LAB HEMETOLOGY METHOD 08/03/2025 11:[address] [facility] LAB MCV 80.9 79.0 - 98.0 FL LAB HEMETOLOGY METHOD 08/03/2025 11:[address] [facility] LAB MCH 24.9(L) 27.0 - 32.0 pcg LAB HEMETOLOGY METHOD 08/03/2025 11:[address] [facility] LAB MCHC 30.8(L) 32.0 - 37.0 g/dL LAB HEMETOLOGY METHOD 08/03/2025 11:[address] [facility] LAB RDW 14.4 11.0 - 15.0 % LAB HEMETOLOGY METHOD 08/03/2025 11:[address] [facility] LAB Platelets 264 130 - 400 K/mcL LAB HEMETOLOGY METHOD 08/03/2025 11:[address] [facility] LAB MPV 11.9(H) 7.0 - 11.0 FL LAB HEMETOLOGY METHOD 08/03/2025 11:[address] [facility] LAB NRBC 0.0 <1.0 % LAB HEMETOLOGY METHOD 08/03/2025 11:[address] [facility] LAB NRBC Absolute 0.00 <0.10 K/mcL LAB HEMETOLOGY METHOD 08/03/2025 11:[address] [facility] LAB Neutrophils Relative 63.8 % LAB HEMETOLOGY METHOD 08/03/2025 11:[address] [facility] LAB Lymphocytes Relative 24.0 % LAB HEMETOLOGY METHOD 08/03/2025 11:[address] [facility] LAB Monocytes Relative 8.1 % LAB HEMETOLOGY METHOD 08/03/2025 11:[address] [facility] LAB Eosinophils Relative 3.1 % LAB HEMETOLOGY METHOD 08/03/2025 11:[address] [facility] LAB Basophils Relative 0.5 % LAB HEMETOLOGY METHOD 08/03/2025 11:[address] [facility] LAB Immature Granulocytes Relative 0.5 % LAB HEMETOLOGY METHOD 08/03/2025 11:[address] [facility] LAB Neutrophils Absolute 4.97 1.50 - 7.00 K/mcL LAB HEMETOLOGY METHOD 08/03/2025 11:[address] [facility] LAB Lymphocytes Absolute 1.87 1.00 - 5.00 K/mcL LAB HEMETOLOGY METHOD 08/03/2025 11:[address] [facility] LAB Monocytes Absolute 0.63 0.20 - 1.00 K/mcL LAB HEMETOLOGY METHOD 08/03/2025 11:41 AM EDT [facility] LAB Eosinophils Absolute 0.24 0.00 - 0.50 K/[facility] LAB HEMETOLOGY METHOD 08/03/2025 11:41 AM EDT [facility] LAB Basophils Absolute 0.04 0.00 - 0.20 K/[facility] LAB HEMETOLOGY METHOD 08/03/2025 11:41 AM EDT [facility] LAB Immature Granulocytes Absolute 0.04(H) 0.00 - 0.03 K/[facility] LAB HEMETOLOGY METHOD 08/03/2025 11:41 AM EDT [facility] LAB Blood Venous blood specimen / Unknown Venipuncture / Unknown 08/03/2025 7:32 AM EDT 08/03/2025 10:38 AM EDT us Celina Handley NP LAB BLOOD ORDERABLES Final R esult [facility] ([facility]) [facility] LAB [address] [place] [address], from Last 3 Months Insurance [place]ICAID - [place] MEDICARE ADVANTAGE Care Teams County Coroner Relationship Specialty Start Date End Date Celina Handley NP [address] [place] [phone] PCP - General 03/10/25
--- OUTSIDE RECORDS SUMMARY | 2025-09-20 07:21 | XMS_ITS | Encounter Summary ---
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 Social History Tobacco Use [...] DIFFERENTIAL Routine 08/03/2025 7:32 AM EDT Other [facility] (current) 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 CBC AND DIFFERENTIAL Routine 08/03/2025 7:32 AM EDT Other [facility] (current) 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 documented in this encounter Results * (ABNORMAL) CBC auto differential (08/03/2025 7:32 AM EDT) WBC 7.8 4.8 - 10.8 K/[facility] LAB HEMETOLOGY METHOD 08/03/2025 11:41 AM EDT [facility] LAB RBC 4.10 3.80 - 5.50 M/[facility] LAB HEMETOLOGY METHOD 08/03/2025 11:[address] [...] LAB HEMETOLOGY METHOD 08/03/2025 11:41 AM EDT [facility] LAB Monocytes Relative 8.1 % LAB [facility]OLOGY [facility] Eosinophils Relative 3.1 % LAB HEMETOLOGY METHOD 08/03/2025 11:[address] [facility] Basophils Relative 0.5 % LAB HEMETOLOGY METHOD [facility] Immature Granulocytes Relative 0.5 % LAB HEMETOLOGY METHOD [facility] Neutrophils Absolute 4.97 1.50 - 7.00 K/mcL LAB HEMETOLOGY METHOD 08/03/2025 11:[address] [facility] LAB Lymphocytes Absolute 1.87 1.00 - 5.00 K/mcL LAB HEMETOLOGY METHOD 08/03/2025 11:[address] [facility] LAB Monocytes Absolute 0.63 0.20 - 1.00 K/mcL LAB HEMETOLOGY METHOD 08/03/2025 11:[address] [facility] LAB Eosinophils Absolute 0.24 0.00 - 0.50 K/mcL LAB HEMETOLOGY METHOD 08/03/2025 11:[address] [facility] LAB Basophils Absolute 0.04 0.00 - 0.20 K/mcL LAB HEMETOLOGY METHOD 08/03/2025 11:[address] [facility] LAB Immature Granulocytes Absolute 0.04(H) 0.00 - 0.03 K/mcL LAB HEMETOLOGY METHOD 08/03/2025 11:[address] [facility] LAB Blood Venous blood specimen / Unknown Venipuncture / Unknown 08/03/2025 7:32 AM EDT 08/03/2025 10:38 AM EDT us Celina Handley NP LAB BLOOD ORDERABLES Final R esult [facility] H[facility] LAB [address] [place] [address], documented in this encounter Visit Diagnoses Diagnosis Other [facility] (current) 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 documented in this encounter Care Teams Notcher Relationship Specialty Start Date End Date Celina Handley NP [address] [place] [phone] PCP - General 03/10/25 documented as of this encounter
--- OUTSIDE RECORDS SUMMARY | 2025-09-20 07:21 | XMS_ITS | Encounter Summary ---
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 Social History Tobacco [...] DIFFERENTIAL Routine 06/23/2025 5:40 AM EDT Other care home (current) 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 CBC AND DIFFERENTIAL Routine 06/23/2025 5:40 AM EDT Other care home (current) 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 documented in this encounter Results * (ABNORMAL) CBC auto differential (06/23/2025 5:40 AM EDT) WBC 8.1 4.8 - 10.8 K/[facility] LAB HEMETOLOGY METHOD 06/23/2025 8:16 AM EDT [facility] ([facility]) [facility] LAB RBC 3.80 3.80 - 5.50 M/[facility] LAB HEMETOLOGY METHOD 06/23/2025 8:16 AM [...] LAB HEMETOLOGY METHOD 06/23/2025 8:16 AM EDT [facility] LAB Eosinophils Relative 2.6 % LAB HEMETOLOGY METHOD 06/23/2025 8:16 AM EDT [facility] LAB Basophils Relative 0.5 % LAB HEMETOLOGY METHOD 06/23/2025 8:16 AM EDT [facility] LAB Immature Granulocytes Relative 0.6 % LAB HEMETOLOGY METHOD 06/23/2025 8:16 AM EDT [facility] LAB Neutrophils Absolute 5.23 1.50 - 7.00 K/mcL LAB HEMETOLOGY METHOD 06/23/2025 8:16 AM EDT [facility] LAB Lymphocytes Absolute 1.92 1.00 - 5.00 K/mcL LAB HEMETOLOGY METHOD 06/23/2025 8:16 AM EDT [facility] LAB Monocytes Absolute 0.63 0.20 - 1.00 K/mcL LAB HEMETOLOGY METHOD 06/23/2025 8:16 AM EDT [facility] LAB Eosinophils Absolute 0.21 0.00 - 0.50 K/mcL LAB HEMETOLOGY METHOD 06/23/2025 8:16 AM EDT [facility] LAB Basophils Absolute 0.04 0.00 - 0.20 K/mcL LAB HEMETOLOGY METHOD 06/23/2025 8:16 AM EDT [facility] LAB Immature Granulocytes Absolute 0.05(H) 0.00 - 0.03 K/mcL LAB HEMETOLOGY METHOD 06/23/2025 8:16 AM EDT [facility] LAB Blood Venous blood specimen / Unknown Venipuncture / Unknown 06/23/2025 5:40 AM EDT 06/23/2025 7:57 AM EDT us Celina Handley NP LAB BLOOD ORDERABLES Final R esult [facility]) HOSPITAL LAB [address] [place] [address], documented in this encounter Visit Diagnoses Diagnosis Other care home (current) 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 documented in this encounter Care Teams Federal Air Marshal Relationship Specialty Start Date End Date Celina Handley NP [address] [place] [phone] PCP - General 03/10/25 documented as of this encounter
--- OUTSIDE RECORDS SUMMARY | 2025-09-20 07:21 | XMS_ITS | Encounter Summary ---
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 Social [...] DIFFERENTIAL Routine 04/06/2025 8:52 AM EDT Other penitentiary (current) 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 CBC AND DIFFERENTIAL Routine 04/06/2025 8:52 AM EDT Other penitentiary (current) 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 documented in this encounter Results * (ABNORMAL) CBC auto differential (04/06/2025 8:52 AM EDT) WBC 5.9 4.8 - 10.8 K/[facility] LAB HEMETOLOGY METHOD 04/06/2025 10:49 AM EDT [facility] ([facility]) [facility] LAB RBC 4.40 3.80 - 5.50 M/[facility] LAB HEMETOLOGY METHOD 04/06/2025 10:49 AM [facility] LAB Hemoglobin 12.4 12.0 - 18.0 g/dL LAB HEMETOLOGY METHOD 04/06/2025 10:49 AM [facility] LAB Hematocrit 37.3 36.0 - 48.0 % LAB HEMETOLOGY METHOD 04/06/2025 10:49 AM [facility] LAB MCV 85.0 79.0 - 98.0 FL LAB HEMETOLOGY METHOD 04/06/2025 10:49 AM [facility] LAB MCH 28.2 27.0 - 32.0 pcg LAB HEMETOLOGY METHOD 04/06/2025 10:49 AM [facility] LAB MCHC 33.2 32.0 - 37.0 g/dL LAB HEMETOLOGY METHOD 04/06/2025 10:49 AM [facility] LAB RDW 12.9 11.0 - 15.0 % LAB HEMETOLOGY METHOD 04/06/2025 10:49 AM [facility] LAB Platelets 224 130 - 400 K/mcL LAB HEMETOLOGY METHOD 04/06/2025 10:49 AM [facility] LAB MPV 11.8(H) 7.0 - 11.0 FL LAB HEMETOLOGY METHOD 04/06/2025 10:49 AM [facility] LAB NRBC 0.0 <1.0 % LAB HEMETOLOGY METHOD 04/06/2025 10:49 AM [facility] LAB NRBC Absolute 0.00 <0.10 K/mcL LAB HEMETOLOGY METHOD 04/06/2025 10:49 AM [facility] LAB Neutrophils Relative 60.0 % LAB HEMETOLOGY METHOD 04/06/2025 10:49 AM [facility] LAB Lymphocytes Relative 29.4 % LAB HEMETOLOGY METHOD 04/06/2025 10:49 AM [facility] LAB Monocytes Relative 7.8 % [...] K/mcL LAB HEMETOLOGY METHOD 04/06[facility]25 10[facility] Basophils Absolute 0.02 0.00 - [...] R esult [facility] LAB [address] [place] [address], documented in this encounter Visit Diagnoses Diagnosis 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
--- OUTSIDE RECORDS SUMMARY | 2025-09-20 07:21 | XMS_ITS | Encounter Summary ---
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 Social History Tobacco Use [...] DIFFERENTIAL Routine 07/20/2025 7:55 AM EDT Other detention (current) 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 CBC AND DIFFERENTIAL Routine 07/20/2025 7:55 AM EDT Other detention (current) 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 documented in this encounter Results * (ABNORMAL) CBC auto differential (07/20/2025 7:55 AM EDT) WBC 6.9 4.8 - 10.8 K/[facility] LAB HEMETOLOGY METHOD 07/20/2025 9:34 AM EDT [facility] ([facility]) [facility] LAB RBC 4.40 3.80 - 5.50 M/[facility] LAB HEMETOLOGY METHOD 07/20/2025 9:34 AM [facility] LAB Hemoglobin 11.1(L) 12.0 - 18.0 g/dL LAB HEMETOLOGY METHOD 07/20/2025 9:34 AM [facility] LAB Hematocrit 36.4 36.0 - 48.0 % LAB HEMETOLOGY METHOD 07/20/2025 9:34 AM [facility] LAB MCV 82.2 79.0 - 98.0 FL LAB HEMETOLOGY METHOD 07/20/2025 9:34 AM [facility] LAB MCH 25.1(L) 27.0 - 32.0 pcg LAB HEMETOLOGY METHOD 07/20/2025 9:34 AM [facility] LAB MCHC 30.5(L) 32.0 - 37.0 g/dL LAB HEMETOLOGY METHOD 07/20/2025 9:34 AM [facility] LAB RDW 13.6 11.0 - 15.0 % LAB HEMETOLOGY METHOD 07/20/2025 9:34 AM [facility] LAB Platelets 239 130 - 400 K/mcL LAB HEMETOLOGY METHOD 07/20/2025 9:34 AM [facility] LAB MPV 11.9(H) 7.0 - 11.0 FL LAB HEMETOLOGY METHOD 07/20/2025 9:34 AM [facility] LAB NRBC 0.0 <1.0 % LAB HEMETOLOGY METHOD 07/20/2025 9:34 AM [facility] LAB NRBC Absolute 0.00 <0.10 K/mcL LAB HEMETOLOGY METHOD 07/20/2025 9:34 AM [facility] LAB Neutrophils Relative 65.2 % LAB HEMETOLOGY METHOD 07/20/2025 9:34 AM [facility] LAB Lymphocytes Relative 20.6 % LAB HEMETOLOGY METHOD 07/20/2025 9:34 AM [facility] LAB Monocytes Relative 9.4 % LAB HEMETOLOGY METHOD 07/20/2025 9:34 AM EDT [facility] LAB Eosinophils Relative 3.3 % LAB HEMETOLOGY METHOD 07/20/2025 9:34 AM EDT [facility] LAB Basophils Relative 0.3 % LAB HEMETOLOGY METHOD 07/20/2025 9:34 AM EDT [facility] LAB Immature Granulocytes Relative 1.2 % LAB HEMETOLOGY METHOD 07/20/2025 9:34 AM EDT [facility] LAB Neutrophils Absolute 4.50 1.50 - 7.00 K/mcL LAB HEMETOLOGY METHOD 07/20/2025 9:34 AM EDT [facility] LAB Lymphocytes Absolute 1.42 1.00 - 5.00 K/mcL LAB HEMETOLOGY METHOD 07/20/2025 9:34 AM EDT [facility] LAB Monocytes Absolute 0.65 0.20 - 1.00 K/mcL LAB HEMETOLOGY METHOD 07/20/2025 9:34 AM EDT [facility] LAB Eosinophils Absolute 0.23 0.00 - 0.50 K/mcL LAB HEMETOLOGY METHOD 07/20/2025 9:34 AM EDT [facility] LAB Basophils Absolute 0.02 0.00 - 0.20 K/mcL LAB HEMETOLOGY METHOD 07/20/2025 9:34 AM EDT [facility] LAB Immature Granulocytes Absolute 0.08(H) 0.00 - 0.03 K/mcL LAB HEMETOLOGY METHOD 07/20/2025 9:34 AM EDT [facility] LAB Blood Venous blood specimen / Unknown Venipuncture / Unknown 07/20/2025 7:55 AM EDT 07/20/2025 9:03 AM EDT us Celina Handley NP LAB BLOOD ORDERABLES Final R esult [facility] ([facility] H[facility] LAB [address] [place] [address], documented in this encounter Visit Diagnoses Diagnosis Other detention (current) 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 documented in this encounter Care Teams Estimate Clerk Relationship Specialty Start Date End Date Celina Handley NP [address] [place] [phone] PCP - General 03/10/25 documented as of this encounter
--- OUTSIDE RECORDS SUMMARY | 2025-09-20 07:21 | XMS_ITS | Encounter Summary ---
Author Organization [facility] [facility] Address [address] [place] [address] Care Team Providers Care Census Clerk Name Role Phone Celina Handley NP Primary Care Provider Encounter Details Date Type Department Care Team (Late st Contact Info) Description 03/23/[address] 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 documented in this encounter Results * (ABNORMAL) CBC auto differential (03/23/2025 6:23 AM EDT) WBC 7.6 4.8 - 10.8 K/[facility] LAB HEMETOLOGY METHOD 03/23/2025 11:55 AM EDT [facility] ([facility]) [facility] LAB RBC 4.60 3.80 - 5.50 M/[facility] LAB HEMETOLOGY METHOD 03/23/2025 11:55 AM [facility] LAB Hemoglobin 12.9 12.0 - 18.0 g/dL LAB HEMETOLOGY METHOD 03/23/2025 11:55 AM [facility] LAB Hematocrit 38.9 36.0 - 48.0 % LAB HEMETOLOGY METHOD 03/23/2025 11:55 AM [facility] LAB MCV 85.1 79.0 - 98.0 FL LAB HEMETOLOGY METHOD 03/23/2025 11:55 AM [facility] LAB MCH 28.2 27.0 - 32.0 pcg LAB HEMETOLOGY METHOD 03/23/2025 11:55 AM [facility] LAB MCHC 33.2 32.0 - 37.0 g/dL LAB HEMETOLOGY METHOD 03/23/2025 11:55 AM [facility] LAB RDW 13.2 11.0 - 15.0 % LAB HEMETOLOGY METHOD 03/23/2025 11:55 AM [facility] LAB Platelets 223 130 - 400 K/mcL LAB HEMETOLOGY METHOD 03/23/2025 11:55 AM [facility] LAB MPV 12.2(H) 7.0 - 11.0 FL LAB HEMETOLOGY METHOD 03/23/2025 11:55 AM [facility] LAB NRBC 0.0 <1.0 % LAB HEMETOLOGY METHOD 03/23/2025 11:55 AM [facility] LAB NRBC Absolute 0.00 <0.10 K/mcL LAB HEMETOLOGY METHOD 03/23/2025 11:55 AM [facility] LAB Neutrophils Relative 65.5 % LAB HEMETOLOGY METHOD 03/23/2025 11:55 AM [facility] LAB Lymphocytes Relative 25.1 % LAB HEMETOLOGY METHOD 03/23/2025 11:55 AM [facility] LAB Monocytes Relative 6.0 % LAB HEMETOLOGY METHOD 03/23/2025 11:55 AM EDT [facility] LAB Eosinophils Relative 2.0 % LAB HEMETOLOGY METHOD 03/23/2025 11:55 AM EDT [facility] LAB Basophils Relative 0.5 % LAB HEMETOLOGY METHOD 03/23/2025 11:55 AM EDT [facility] LAB Immature Granulocytes Relative 0.9 % LAB HEMETOLOGY METHOD 03/23/2025 11:55 AM EDT [facility] LAB Neutrophils Absolute 5.00 1.50 - 7.00 K/mcL LAB HEMETOLOGY METHOD 03/23/2025 11:55 AM EDT [facility] LAB Lymphocytes Absolute 1.92 1.00 - 5.00 K/mcL LAB HEMETOLOGY METHOD 03/23[facility]2025 11[facility] Monocytes Absolute 0.46 0.20 - 1.00 K/mcL LAB HEMETOLOGY METHOD 03/23/2025 11:55 AM EDT [facility] LAB Eosinophils Absolute 0.15 0.00 - 0.50 K/mcL LAB HEMETOLOGY METHOD 03/23/2025 11:55 [facility] Basophils Absolute 0.04 0.00 - 0.20 K/mcL LAB HEMETOLOGY METHOD 03/23/2025 11:55 AM EDT [facility] LAB Immature Granulocytes Absolute 0.07(H) 0.00 - 0.03 K/mcL LAB HEMETOLOGY METHOD 03/23/2025 11:55 AM EDT [facility] LAB Blood Venous blood specimen / Unknown 03/23/2025 6:23 AM EDT 03/23/2025 11:26 AM EDT us Celina Handley NP LAB BLOOD ORDERABLES Final R esult [facility] LAB [address] [place] [address], documented in this encounter Visit Diagnoses Diagnosis Other shelter (current) 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 documented in this encounter Care Teams Census Clerk Relationship Specialty Start Date End Date Celina Handley NP [address] [place] [phone] PCP - General 03/10/25 documented as of this encounter
--- OUTSIDE RECORDS SUMMARY | 2025-09-20 07:21 | XMS_ITS | Encounter Summary ---
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 Social History Tobacco Use [...] DIFFERENTIAL Routine 07/06/2025 6:06 AM EDT Other nursing home (current) 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 CBC AND DIFFERENTIAL Routine 07/06/2025 6:06 AM EDT Other nursing home (current) 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 documented in this encounter Results * (ABNORMAL) CBC auto differential (07/06/2025 6:06 AM EDT) WBC 8.6 4.8 - 10.8 K/[facility] LAB HEMETOLOGY METHOD 07/06/2025 7:57 AM EDT [facility] ([facility]) [facility] LAB RBC 4.00 3.80 - 5.50 M/[facility] LAB HEMETOLOGY METHOD 07/06/2025 7:57 AM [facility] LAB Hemoglobin 10.3(L) 12.0 - 18.0 g/dL LAB HEMETOLOGY METHOD 07/06/2025 7:57 AM [facility] LAB Hematocrit 32.3(L) 36.0 - 48.0 % LAB HEMETOLOGY METHOD 07/06/2025 7:57 AM [facility] LAB MCV 81.4 79.0 - 98.0 FL LAB HEMETOLOGY METHOD 07/06/2025 7:57 AM [facility] LAB MCH 25.9(L) 27.0 - 32.0 pcg LAB HEMETOLOGY METHOD 07/06/2025 7:57 AM [facility] LAB MCHC 31.9(L) 32.0 - 37.0 g/dL LAB HEMETOLOGY METHOD 07/06/2025 7:57 AM [facility] LAB RDW 13.5 11.0 - 15.0 % LAB HEMETOLOGY METHOD 07/06/2025 7:57 AM [facility] LAB Platelets 239 130 - 400 K/mcL LAB HEMETOLOGY METHOD 07/06/2025 7:57 AM [facility] LAB MPV 12.4(H) 7.0 - 11.0 FL LAB HEMETOLOGY METHOD 07/06/2025 7:57 AM [facility] LAB NRBC 0.0 <1.0 % LAB HEMETOLOGY METHOD 07/06/2025 7:57 AM [facility] LAB NRBC Absolute 0.00 <0.10 K/mcL LAB HEMETOLOGY METHOD 07/06/2025 7:57 AM [facility] LAB Neutrophils Relative 66.9 % LAB HEMETOLOGY METHOD 07/06/2025 7:57 AM [facility] LAB Lymphocytes Relative 23.1 % LAB HEMETOLOGY METHOD 07/06/2025 7:57 AM EDT [facility] LAB Monocytes Relative 5.5 % LAB [facility]EMETOLOGY METHOD [facility]/06[facility]25 7[facility] Eosinophils Relative 3.2 % LAB HEMETOLOGY METHOD 07/06[facility]2025 7[facility]57 [facility] Basophils Relative 0.5 % LAB HEMETOLOGY METHOD 07/06/2025 7:57 AM EDT [facility] LAB Immature Granulocytes Relative 0.8 % LAB HEMETOLOGY METHOD 07/06/2025 7:57 AM EDT [facility] LAB Neutrophils Absolute 5.74 1.50 - 7.00 K/mcL LAB HEMETOLOGY METHOD 07/06/2025 7:57 AM [facility] LAB Lymphocytes Absolute 1.98 1.00 - 5.00 K/mcL LAB HEMETOLOGY METHOD 07/06/2025 7[facility] Monocytes Absolute 0.47 0.20 - 1.00 K/mcL LAB HEMETOLOGY METHOD 07/06/2025 7:57 AM [facility] LAB Eosinophils Absolute 0.27 0.00 - 0.50 K/mcL LAB HEMETOLOGY METHOD 07/06/2025 7[facility]57 [facility] Basophils Absolute 0.04 0.00 - 0.20 K/mcL LAB HEMETOLOGY METHOD 07/06/2025 7[facility]57 [facility] Immature Granulocytes Absolute 0.07(H) 0.00 - 0.03 K/mcL LAB HEMETOLOGY METHOD 07/06/2025 7:57 AM [facility] LAB Blood Venous blood specimen / Unknown Venipuncture / Unknown 07/06/2025 6:06 AM EDT 07/06/2025 7:41 AM EDT us Celina Handley NP LAB BLOOD ORDERABLES Final R esult [facility] LAB [address] [place] [address], documented in this encounter Visit Diagnoses Diagnosis Other nursing home (current) 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 documented in this encounter Care Teams Tax Services Intern Relationship Specialty Start Date End Date Celina Handley NP [address] [place] [phone] PCP - General 03/10/25 documented as of this encounter
[2025-09-20 07:31] LABS: MANUAL DIFF FLAG NO
[2025-09-20 08:18] LABS: Hematocrit 36.1 % (37.0-47.0); Hemoglobin 11.3 g/dl (12.0-16.0); Imm Gran Abs Auto 0.07 X10*3/uL (0.00-0.03); Imm Gran Pct Auto 0.6 % (0.0-0.4); Lymphocytes Absolute Auto 2.3 X10*3/uL (1.2-4.9); Mean Corpuscular HGB Conc 31.3 g/dl (31.0-35.0); Mean Corpuscular Hemoglobin 24.8 pg (27.0-33.0); Mean Corpuscular Volume 79.3 fL (80.0-98.0); NRBC Abs Auto 0.000 X10*3/uL (0.0-0.012); NRBC Pct Auto 0.0 /100WBC (0.0-0.2); Platelet Count 337 X10*3/uL (160-400); Red Blood Count 4.55 X10*6/uL (4.20-5.50); White Blood Count 12.0 X10*3/uL (4.8-10.8)
[2025-09-20 08:44] LABS: Alanine Aminotransferase 117 U/L (0-31); Albumin Level 4.7 g/dL (3.5-5.0); Alkaline Phosphatase 82 U/L (39-117); Anion Gap 16 (12-20); Aspartate Amino Transferase 58 U/L (5-31); Blood Urea Nitrogen 12 mg/dL (9-16); Calcium 9.1 mg/dL (8.4-10.2); Carbon Dioxide 22 mmol/L (22-29); Chloride 107 mmol/L (96-108); Cholesterol 154 mg/dL (<200); Estimated Glomerular Filt Rate > 60; HDL Cholesterol 30 mg/dL (>40); Potassium 3.7 mmol/L (3.3-5.1); Sodium 141 mmol/L (135-145); Total Protein 7.6 g/dL (6.5-8.0); Triglycerides 330 mg/dL (<150)
[2025-09-20 08:56] LABS: Folate 11.0 ng/mL (> or = 4.0); Vitamin B12 317 pg/mL (200-900)
[2025-09-20 09:36] LABS: Microalbum/Creatinine Ratio Ur 22.6 ug/mg cr (<30)
== END 2025-09-20 07:19 | disposition home or self-care (01) ==
LOC: HO.LAB 07:18
DX: Z00.00 Encounter for general adult medical examination without abnormal findings (principal); E78.00 Pure hypercholesterolemia, unspecified; E11.9 Type 2 diabetes mellitus without complications; K76.0 Fatty (change of) liver, not elsewhere classified; Z13.29 Encounter for screening for other suspected endocrine disorder; Z13.21 Encounter for screening for nutritional disorder
CPT/HCPCS: 36415; 80053; 80061; 82043; 82306; 82570; 82607; 82746; 84443; 85025

== ENCOUNTER 2025-10-10 19:28 | Emergency (ER) | payer MEDICARE, SELFPAY ==
[2025-10-10 19:40] VITALS: BP 136/82; BP 164/86; PULSE 112; PULSE 96; RESP 16; TEMP 37.3; O2SAT 95; O2SAT 96; BMI 41.6
--- OUTSIDE RECORDS SUMMARY | 2025-10-10 19:46 | XMS_ITS | Encounter Summary ---
Author Organization [employer] [facility] Address [address] [place] [address] Care Team Providers Care Promotions Firm Accounts Manager Name Role Phone Celina Handley NP Primary Care Provider Encounter Details Date Type Department Care Team (Late st Contact Info) Description 09/21/2025 Lab Requisition [facility] - Main Lab 299 [facility] [place] [address] Celina Handley NP [address] [place] [address] Other jail (current) 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 Social History Tobacco Use [...] Diagnosis Comments CBC WITH AUTO DIFFERENTIAL Routine 09/21/2025 7:19 AM EST 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 CBC AND DIFFERENTIAL Routine 09/21/2025 7:19 AM EST Other jail (current) 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 documented in this encounter Results * (ABNORMAL) CBC auto differential (09/21/2025 7:19 AM EST) WBC 13.9(H) 4.8 - 10.8 K/[facility] LAB HEMETOLOGY METHOD 09/21/2025 10:14 AM EST [facility] LAB RBC 4.40 3.80 - 5.50 M/[facility] LAB HEMETOLOGY METHOD 09/21/2025 10:14 AM [facility] LAB Hemoglobin 11.0(L) 12.0 - 18.0 g/dL LAB HEMETOLOGY METHOD 09/21/2025 10:14 AM [facility] LAB Hematocrit 34.7(L) 36.0 - 48.0 % LAB HEMETOLOGY METHOD 09/21/2025 10:14 AM [facility] LAB MCV 78.3(L) 79.0 - 98.0 FL LAB HEMETOLOGY METHOD 09/21/2025 10:14 AM [facility] LAB MCH 24.8(L) 27.0 - 32.0 pcg LAB HEMETOLOGY METHOD 09/21/2025 10:14 AM [facility] LAB MCHC 31.7(L) 32.0 - 37.0 g/dL LAB HEMETOLOGY METHOD 09/21/2025 10:14 AM [facility] LAB RDW 15.8(H) 11.0 - 15.0 % LAB HEMETOLOGY METHOD 09/21/2025 10:14 AM [facility] LAB Platelets 340 130 - 400 K/mcL LAB HEMETOLOGY METHOD 09/21/2025 10:14 AM [facility] LAB MPV 11.3(H) 7.0 - 11.0 FL LAB HEMETOLOGY METHOD 09/21/2025 10:14 AM [facility] LAB NRBC 0.0 <1.0 % LAB HEMETOLOGY METHOD 09/21/2025 10:14 AM [facility] LAB NRBC Absolute 0.00 <0.10 K/mcL LAB HEMETOLOGY METHOD 09/21/2025 10:14 AM [facility] LAB Neutrophils Relative 74.5 % LAB HEMETOLOGY METHOD 09/21/2025 10:14 AM [facility] LAB Lymphocytes Relative 15.8 % LAB HEMETOLOGY METHOD 09/21/2025 10:14 AM [facility] LAB Monocytes Relative 7.0 % LAB HEMETOLOGY METHOD 09/21/2025 10:14 AM EST [facility] LAB Eosinophils Relative 1.6 % LAB HEMETOLOGY METHOD 09/21/2025 10:14 AM [facility] LAB Basophils Relative 0.4 % LAB HEMETOLOGY METHOD 09/21/2025 10:14 AM [facility] LAB Immature Granulocytes Relative 0.7 % LAB HEMETOLOGY METHOD 09/21/2025 10:14 AM [facility] LAB Neutrophils Absolute 10.37(H) 1.50 - 7.00 K/mcL LAB HEMETOLOGY METHOD 09/21/2025 10:14 AM [facility] LAB Lymphocytes Absolute 2.20 1.00 - 5.00 K/mcL LAB HEMETOLOGY METHOD 09/21/2025 10:14 AM [facility] LAB Monocytes Absolute 0.98 0.20 - 1.00 K/mcL LAB HEMETOLOGY METHOD 09/21/2025 10:14 AM EST [facility] LAB Eosinophils Absolute 0.22 0.00 - 0.50 K/mcL LAB HEMETOLOGY METHOD 09/21/2025 10:14 AM [facility] LAB Basophils Absolute 0.05 0.00 - 0.20 K/mcL LAB HEMETOLOGY METHOD 09/21/2025 10:14 AM [facility] LAB Immature Granulocytes Absolute 0.10(H) 0.00 - 0.03 K/mcL LAB HEMETOLOGY METHOD 09/21/2025 10:14 AM [facility] LAB Blood Venous blood specimen / Unknown Venipuncture / Unknown 09/21/2025 7:19 AM EST 09/21/2025 9:55 AM EST us Celina Handley NP LAB BLOOD ORDERABLES Final R esult [facility] LAB [address] [place] [address], documented in this encounter Visit Diagnoses Diagnosis Other jail (current) 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 documented in this encounter Care Teams Promotions Firm Accounts Manager Relationship Specialty Start Date End Date Celina Handley NP [address] [place] [phone] PCP - General 03/10/25 documented as of this encounter
--- OUTSIDE RECORDS SUMMARY | 2025-10-10 19:46 | XMS_ITS | Encounter Summary ---
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 CBC AND DIFFERENTIAL Routine 07/20/2025 7:55 AM EDT Other nursing home (current) 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 documented in this encounter Results * (ABNORMAL) CBC auto differential (07/20/2025 7:55 AM EDT) WBC 6.9 4.8 - 10.8 K/[facility] LAB HEMETOLOGY METHOD 07/20/2025 9:34 AM EDT [facility] ([facility]) [facility] LAB RBC 4.40 3.80 - 5.50 M/[facility] LAB HEMETOLOGY METHOD 07/20/2025 9:34 AM [facility] LAB Hemoglobin 11.1(L) 12.0 - 18.0 g/dL LAB HEMETOLOGY METHOD 07/20/2025 9:34 AM [facility] LAB Hematocrit 36.4 36.0 - 48.0 % LAB HEMETOLOGY METHOD 07/20/2025 9:34 AM [facility] LAB MCV 82.2 79.0 - 98.0 FL LAB HEMETOLOGY METHOD 07/20/2025 9:34 AM [facility] LAB MCH 25.1(L) 27.0 - 32.0 pcg LAB HEMETOLOGY METHOD 07/20/2025 9:34 AM [facility] LAB MCHC 30.5(L) 32.0 - 37.0 g/dL LAB HEMETOLOGY METHOD 07/20/2025 9:34 AM [facility] LAB RDW 13.6 11.0 - 15.0 % LAB HEMETOLOGY METHOD 07/20/2025 9:34 AM [facility] LAB Platelets 239 130 - 400 K/mcL LAB HEMETOLOGY METHOD 07/20/2025 9:34 AM [facility] LAB MPV 11.9(H) 7.0 - 11.0 FL LAB HEMETOLOGY METHOD 07/20/2025 9:34 AM [facility] LAB NRBC 0.0 <1.0 % LAB HEMETOLOGY METHOD 07/20/2025 9:34 AM [facility] LAB NRBC Absolute 0.00 <0.10 K/mcL LAB HEMETOLOGY METHOD 07/20/2025 9:34 AM [facility] LAB Neutrophils Relative 65.2 % LAB HEMETOLOGY METHOD 07/20/2025 9:34 AM [facility] LAB Lymphocytes Relative 20.6 % LAB HEMETOLOGY METHOD 07/20/2025 9:34 AM [facility] LAB Monocytes Relative 9.4 % LAB HEMETOLOGY METHOD 07/20/2025 9:34 AM EDT [facility] LAB Eosinophils Relative 3.3 % LAB HEMETOLOGY METHOD 07/20/2025 9:34 AM EDT [facility] LAB Basophils Relative 0.3 % LAB HEMETOLOGY METHOD 07/20/2025 9:34 AM EDT [facility] LAB Immature Granulocytes Relative 1.2 % LAB HEMETOLOGY METHOD 07/20/2025 9:34 AM EDT [facility] LAB Neutrophils Absolute 4.50 1.50 - 7.00 K/mcL LAB HEMETOLOGY METHOD 07/20/2025 9:34 AM EDT [facility] LAB Lymphocytes Absolute 1.42 1.00 - 5.00 K/mcL LAB HEMETOLOGY METHOD 07/20/2025 9:34 AM EDT [facility] LAB Monocytes Absolute 0.65 0.20 - 1.00 K/mcL LAB HEMETOLOGY METHOD 07/20/2025 9:34 AM EDT [facility] LAB Eosinophils Absolute 0.23 0.00 - 0.50 K/mcL LAB HEMETOLOGY METHOD 07/20/2025 9:34 AM EDT [facility] LAB Basophils Absolute 0.02 0.00 - 0.20 K/mcL LAB HEMETOLOGY METHOD 07/20/2025 9:34 AM EDT [facility] LAB Immature Granulocytes Absolute 0.08(H) 0.00 - 0.03 K/mcL LAB HEMETOLOGY METHOD 07/20/2025 9:34 AM EDT [facility] LAB Blood Venous blood specimen / Unknown Venipuncture / Unknown 07/20/2025 7:55 AM EDT 07/20/2025 9:03 AM EDT us Celina Handley NP LAB BLOOD ORDERABLES Final R esult [facility] ([facility] H[facility] LAB [address] [place] [address], documented in this encounter Visit Diagnoses Diagnosis Other nursing home (current) 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 documented in this encounter Care Teams Farmhand Relationship Specialty Start Date End Date Celina Handley NP [address] [place] [phone] PCP - General 03/10/25 documented as of this encounter
--- OUTSIDE RECORDS SUMMARY | 2025-10-10 19:46 | XMS_ITS | Encounter Summary ---
Author Organization [employer] [facility] Address [address] [place] [address] Care Team Providers Care Art Objects Supervisor Name Role Phone Celina Handley NP Primary Care Provider Encounter Details Date Type Department Care Team (Late st Contact Info) Description 03/08/2025 Lab Requisition [facility] - Main Lab [address] [facility] [employer] [place] [address] Celina Handley NP [address] [place] [address] Other halfway (current) 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 Social History Tobacco Use [...] DIFFERENTIAL Routine 03/09/2025 7:56 AM EDT 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 CBC AND DIFFERENTIAL Routine 03/09/2025 7:56 AM EDT Other halfway (current) 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 documented in this encounter Results * (ABNORMAL) CBC auto differential (03/09/2025 7:56 AM EDT) WBC 6.7 4.8 - 10.8 K/[facility] LAB HEMETOLOGY METHOD 03/09/2025 9:38 AM EDT [facility] ([facility]) [facility] LAB RBC 4.80 3.80 - 5.50 M/[facility] LAB HEMETOLOGY METHOD 03/09/2025 9:38 AM [facility] LAB Hemoglobin 13.9 12.0 - 18.0 g/dL LAB HEMETOLOGY METHOD 03/09/2025 9:38 AM [facility] LAB Hematocrit 41.2 36.0 - 48.0 % LAB HEMETOLOGY METHOD 03/09/2025 9:38 AM [facility] LAB MCV 85.7 79.0 - 98.0 FL LAB HEMETOLOGY METHOD 03/09/2025 9:38 AM [facility] LAB MCH 28.9 27.0 - 32.0 pcg LAB HEMETOLOGY METHOD 03/09/2025 9:38 AM [facility] LAB MCHC 33.7 32.0 - 37.0 g/dL LAB HEMETOLOGY METHOD 03/09/2025 9:38 AM [facility] LAB RDW 12.7 11.0 - 15.0 % LAB HEMETOLOGY METHOD 03/09/2025 9:38 AM [facility] LAB Platelets 203 130 - 400 K/mcL LAB HEMETOLOGY METHOD 03/09/2025 9:38 AM [facility] LAB MPV 11.8(H) 7.0 - 11.0 FL LAB HEMETOLOGY METHOD 03/09/2025 9:38 AM [facility] LAB NRBC 0.0 <1.0 % LAB HEMETOLOGY METHOD 03/09/2025 9:38 AM [facility] LAB NRBC Absolute 0.00 <0.10 K/mcL LAB HEMETOLOGY METHOD 03/09/2025 9:38 AM [facility] LAB Neutrophils Relative 56.4 % LAB HEMETOLOGY METHOD 03/09/2025 9:38 AM [facility] LAB Lymphocytes Relative 32.6 % LAB HEMETOLOGY METHOD 03/09/2025 9:38 AM [facility] LAB Monocytes Relative 8.4 % LAB HEMETOLOGY METHOD 03/09/2025 9:38 AM EDT [facility] LAB Eosinophils Relative 1.9 % LAB HEMETOLOGY METHOD 03/09/2025 9:38 AM EDT [facility] LAB Basophils Relative 0.4 % LAB HEMETOLOGY METHOD 03/09/2025 9:38 AM EDT [facility] LAB Immature Granulocytes Relative 0.3 % LAB HEMETOLOGY METHOD 03/09/2025 9:38 AM EDT [facility] LAB Neutrophils Absolute 3.77 1.50 - 7.00 K/mcL LAB HEMETOLOGY METHOD 03/09/2025 9:38 AM EDT [facility] LAB Lymphocytes Absolute 2.18 1.00 - 5.00 K/mcL LAB HEMETOLOGY METHOD 03/09/2025 9:38 AM EDT [facility] LAB Monocytes Absolute 0.56 0.20 - 1.00 K/mcL LAB HEMETOLOGY METHOD 03/09/2025 9:38 AM EDT [facility] LAB Eosinophils Absolute 0.13 0.00 - 0.50 K/mcL LAB HEMETOLOGY METHOD 03/09/2025 9:38 AM EDT [facility] LAB Basophils Absolute 0.03 0.00 - 0.20 K/mcL LAB HEMETOLOGY METHOD 03/09/2025 9:38 AM EDT [facility] LAB Immature Granulocytes Absolute 0.02 0.00 - 0.03 K/mcL LAB HEMETOLOGY METHOD 03/09/2025 9:38 AM EDT [facility] LAB Blood Venous blood specimen / Unknown Venipuncture / Unknown 03/09/2025 7:56 AM EDT 03/09/2025 8:45 AM EDT us Celina Handley NP LAB BLOOD ORDERABLES Final R esult [facility] LAB [address] [place] [address], documented in this encounter Visit Diagnoses Diagnosis Other halfway (current) 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 documented in this encounter Care Teams Art Objects Supervisor Relationship Specialty Start Date End Date Celina Handley NP [address] [place] [phone] PCP - General 03/10/25 documented as of this encounter
--- OUTSIDE RECORDS SUMMARY | 2025-10-10 19:46 | XMS_ITS | Encounter Summary ---
Author Organization [employer] [facility] Address [address] [place] [address] Care Team Providers Care Special Education Aide Name Role Phone Celina Handley NP Primary Care Provider Encounter Details Date Type Department Care Team (Late st Contact Info) Description 06/22/2025 Lab Requisition [facility] - Main Lab [address] [facility] [place] [address] Celina Handley NP [address] [place] [address] Other fdc (current) 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 Social History Tobacco Use [...] DIFFERENTIAL Routine 06/23/2025 5:40 AM EDT 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 LAB HEMETOLOGY METHOD 06/23/2025 8:16 AM EDT [facility] LAB RBC 3.80 3.80 - 5.50 M/[facility] LAB HEMETOLOGY METHOD 06/23/2025 8:16 AM [facility] LAB Hemoglobin 10.4(L) 12.0 - 18.0 g/dL LAB HEMETOLOGY METHOD 06/23/2025 8:16 AM [facility] LAB Hematocrit 31.7(L) 36.0 - 48.0 % LAB HEMETOLOGY METHOD 06/23/2025 8:16 AM [facility] LAB MCV 82.8 79.0 - 98.0 FL LAB HEMETOLOGY METHOD 06/23/2025 8:16 AM [facility] LAB MCH 27.2 27.0 - 32.0 pcg LAB HEMETOLOGY METHOD 06/23/2025 8:16 AM [facility] LAB MCHC 32.8 32.0 - 37.0 g/dL LAB HEMETOLOGY METHOD 06/23/2025 8:16 AM [facility] LAB RDW 13.1 11.0 - 15.0 % LAB HEMETOLOGY METHOD 06/23/2025 8:16 AM [facility] LAB Platelets 226 130 - 400 K/mcL LAB HEMETOLOGY METHOD 06/23/2025 8:16 AM [facility] LAB MPV 11.8(H) 7.0 - 11.0 FL LAB HEMETOLOGY METHOD 06/23/2025 8:16 AM [facility] LAB NRBC 0.0 <1.0 % LAB HEMETOLOGY METHOD 06/23/2025 8:16 AM [facility] LAB NRBC Absolute 0.00 <0.10 K/mcL LAB HEMETOLOGY METHOD 06/23/2025 8:16 AM [facility] LAB Neutrophils Relative 64.7 % LAB HEMETOLOGY METHOD 06/23/2025 8:16 AM [facility] LAB Lymphocytes Relative 23.8 % LAB HEMETOLOGY METHOD 06/23/2025 8:16 AM [facility] LAB Monocytes Relative 7.8 % LAB HEMETOLOGY METHOD 06/23/2025 8:16 AM EDT [facility] LAB Eosinophils Relative 2.6 % LAB HEMETOLOGY METHOD 06/23/2025 8:16 AM EDT [facility] LAB Basophils Relative 0.5 % LAB HEMETOLOGY METHOD 06/23/2025 8:16 AM EDT [facility] LAB Immature Granulocytes Relative 0.6 % LAB HEMETOLOGY METHOD 06/23/2025 8:16 AM EDT [facility] LAB Neutrophils Absolute 5.23 1.50 - 7.00 K/mcL LAB HEMETOLOGY METHOD 06/23/2025 8:16 AM EDT [facility] LAB Lymphocytes Absolute 1.92 1.00 - 5.00 K/mcL LAB HEMETOLOGY METHOD 06/23/2025 8:16 AM EDT [facility] LAB Monocytes Absolute 0.63 0.20 - 1.00 K/mcL LAB HEMETOLOGY METHOD 06/23/2025 8:16 AM EDT [facility] LAB Eosinophils Absolute 0.21 0.00 - 0.50 K/mcL LAB HEMETOLOGY METHOD 06/23/2025 8:16 AM EDT [facility] LAB Basophils Absolute 0.04 0.00 - 0.20 K/mcL LAB HEMETOLOGY METHOD 06/23/2025 8:16 AM EDT [facility] LAB Immature Granulocytes Absolute 0.05(H) 0.00 - 0.03 K/mcL LAB HEMETOLOGY METHOD 06/23/2025 8:16 AM EDT [facility] LAB Blood Venous blood specimen / Unknown Venipuncture / Unknown 06/23/2025 5:40 AM EDT 06/23/2025 7:57 AM EDT us Celina Handley NP LAB BLOOD ORDERABLES Final R esult [facility] [address] [place] [address], documented in this encounter Visit Diagnoses Diagnosis Other fdc (current) 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 documented in this encounter Care Teams Special Education Aide Relationship Specialty Start Date End Date Celina Handley NP [address] [place] [phone] PCP - General 03/10/25 documented as of this encounter
--- OUTSIDE RECORDS SUMMARY | 2025-10-10 19:46 | XMS_ITS | Encounter Summary ---
Author Organization [employer] [facility] Address [address] [place] [address] Care Team Providers Care Keyboarding Teacher Name Role Phone Celina Handley NP Primary Care Provider [phone] Encounter Details Date Type Department Care Team (Late st Contact Info) Description 07/05/[address] 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 CBC AND DIFFERENTIAL Routine 07/06/2025 6:06 AM EDT Other fci (current) 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 documented in this encounter Results * (ABNORMAL) CBC auto differential (07/06/2025 6:06 AM EDT) WBC 8.6 4.8 - 10.8 K/[facility] LAB HEMETOLOGY METHOD 07/06/2025 7:57 AM EDT [facility] ([facility]) [facility] LAB RBC 4.00 3.80 - 5.50 M/[facility] LAB HEMETOLOGY METHOD 07/06/2025 7:57 AM [facility] LAB Hemoglobin 10.3(L) 12.0 - 18.0 g/dL LAB HEMETOLOGY METHOD 07/06/2025 7:57 AM [facility] LAB Hematocrit 32.3(L) 36.0 - 48.0 % LAB HEMETOLOGY METHOD 07/06/2025 7:57 AM [facility] LAB MCV 81.4 79.0 - 98.0 FL LAB HEMETOLOGY METHOD 07/06/2025 7:57 AM [facility] LAB MCH 25.9(L) 27.0 - 32.0 pcg LAB HEMETOLOGY METHOD 07/06/2025 7:57 AM [facility] LAB MCHC 31.9(L) 32.0 - 37.0 g/dL LAB HEMETOLOGY METHOD 07/06/2025 7:57 AM [facility] LAB RDW 13.5 11.0 - 15.0 % LAB HEMETOLOGY METHOD 07/06/2025 7:57 AM [facility] LAB Platelets 239 130 - 400 K/mcL LAB HEMETOLOGY METHOD 07/06/2025 7:57 AM [facility] LAB MPV 12.4(H) 7.0 - 11.0 FL LAB HEMETOLOGY METHOD 07/06/2025 7:57 AM [facility] LAB NRBC 0.0 <1.0 % LAB HEMETOLOGY METHOD 07/06/2025 7:57 AM [facility] LAB NRBC Absolute 0.00 <0.10 K/mcL LAB HEMETOLOGY METHOD 07/06/2025 7:57 AM [facility] LAB Neutrophils Relative 66.9 % LAB HEMETOLOGY METHOD 07/06/2025 7:57 AM [facility] LAB Lymphocytes Relative 23.1 % LAB HEMETOLOGY METHOD 07/06/2025 7:57 AM EDT [facility] LAB Monocytes Relative 5.5 % LAB HEMETOLOGY METHOD [facility]/06[facility]25 7[facility] Eosinophils Relative 3.2 % LAB HEMETOLOGY METHOD 07/06/2025 7:57 [facility] Basophils Relative 0.5 % LAB HEMETOLOGY METHOD 07/06/2025 7:57 AM EDT [facility] LAB Immature Granulocytes Relative 0.8 % LAB HEMETOLOGY METHOD 07/06/2025 7:57 AM EDT [facility] LAB Neutrophils Absolute 5.74 1.50 - 7.00 K/mcL LAB HEMETOLOGY METHOD 07/06/2025 7:57 AM [facility] LAB Lymphocytes Absolute 1.98 1.00 - 5.00 K/mcL LAB HEMETOLOGY METHOD 07/06/2025 7:57 [facility] Monocytes Absolute 0.47 0.20 - 1.00 K/mcL LAB HEMETOLOGY METHOD 07/06/2025 7:57 AM [facility] LAB Eosinophils Absolute 0.27 0.00 - 0.50 K/mcL LAB HEMETOLOGY METHOD 07/06/2025 7:57 [facility] Basophils Absolute 0.04 0.00 - 0.20 K/mcL LAB HEMETOLOGY METHOD 07/06/2025 7:57 [facility] Immature Granulocytes Absolute 0.07(H) 0.00 - 0.03 K/mcL LAB HEMETOLOGY METHOD 07/06/2025 7:57 AM [facility] LAB Blood Venous blood specimen / Unknown Venipuncture / Unknown 07/06/2025 6:06 AM EDT 07/06/2025 7:41 AM EDT us Celina Handley NP LAB BLOOD ORDERABLES Final R esult [facility] LAB [address] [place] [address], documented in this encounter Visit Diagnoses Diagnosis 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
--- OUTSIDE RECORDS SUMMARY | 2025-10-10 19:46 | XMS_ITS | Clinical Summary ---
Author Organization [address] Address [address] [place] [address] Phone Care Team Providers Care Actor Understudy Name Role Phone Celina Handley NETWORK SECURITY ARCHITECT Primary Care Provider Encounters Date Type Department Care Team Description 10/05/2025 Lab Requisition [facility] Lab [address] [place] [phone] Celina Handley NP Other skilled nursing (current) 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 09/21/2025 Lab Requisition [facility] Lab [address] [place] [address] Celina Handley NP Other skilled nursing (current) 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 08/03/2025 Lab Requisition [facility] Lab [address] [place] [address] Celina Handley NP Other long term care administrator (current) 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 07/19/2025 Lab Requisition [facility] Lab [address] [place] [phone] Celina Handley NP Other long term care administrator (current) 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 from Last 3 Months [...] Diagnosis Comments CBC WITH AUTO DIFFERENTIAL Routine 10/05/2025 7:11 AM EST Other long term care administrator (current) 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 CBC AND DIFFERENTIAL Routine 10/05/2025 7:11 AM EST Other skilled nursing (current) 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 CBC WITH AUTO DIFFERENTIAL Routine 09/21/2025 7:19 AM EST Other long term care administrator (current) 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 CBC AND DIFFERENTIAL Routine 09/21/2025 7:19 AM EST Other skilled nursing (current) 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 CBC WITH AUTO DIFFERENTIAL Routine 08/03/2025 7:32 AM EDT Other long term care administrator (current) 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 CBC AND DIFFERENTIAL Routine 08/03/2025 7:32 AM EDT Other skilled nursing (current) 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 CBC WITH AUTO DIFFERENTIAL Routine 07/20/2025 7:55 AM EDT Other skilled nursing (current) 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 CBC AND DIFFERENTIAL Routine 07/20/2025 7:55 AM EDT Other skilled nursing (current) 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 from Last 3 Months Results * (ABNORMAL) CBC auto differential (10/05/2025 7:11 AM EST) Only the most recent of4 resultswithin the time period is included. WBC 11.8(H) 4.8 - 10.8 K/mcL LAB HEMETOLOGY METHOD 10/05/2025 11:04 AM [facility] LAB RBC 4.50 3.80 - 5.50 M/mcL LAB HEMETOLOGY METHOD 10/05/2025 11:04 AM [facility] LAB Hemoglobin 10.9(L) 12.0 - 18.0 g/dL LAB HEMETOLOGY METHOD 10/05/2025 11:04 AM [facility] LAB Hematocrit 36.0 36.0 - 48.0 % LAB HEMETOLOGY METHOD 10/05/2025 11:04 AM [facility] LAB MCV 80.4 79.0 - 98.0 FL LAB HEMETOLOGY METHOD 10/05/2025 11:04 AM [facility] LAB MCH 24.3(L) 27.0 - 32.0 pcg LAB HEMETOLOGY METHOD 10/05/2025 11:04 AM [facility] LAB MCHC 30.3(L) 32.0 - 37.0 g/dL LAB HEMETOLOGY METHOD 10/05/2025 11:04 AM [facility] LAB RDW 16.2(H) 11.0 - 15.0 % LAB HEMETOLOGY METHOD 10/05/2025 11:04 AM [facility] LAB Platelets 298 130 - 400 K/mcL LAB HEMETOLOGY METHOD 10/05/2025 11:04 AM [facility] LAB MPV 11.6(H) 7.0 - 11.0 FL LAB HEMETOLOGY METHOD 10/05/2025 11:04 AM [facility] LAB NRBC 0.0 <1.0 % LAB HEMETOLOGY METHOD 10/05/2025 11:04 AM [facility] LAB NRBC Absolute 0.00 <0.10 K/mcL LAB HEMETOLOGY METHOD 10/05/2025 11:04 AM [facility] LAB Neutrophils Relative 68.4 % LAB HEMETOLOGY METHOD 10/05/2025 11:04 AM [facility] LAB Lymphocytes Relative 22.3 % LAB HEMETOLOGY METHOD 10/05/2025 11:04 AM [facility] LAB Monocytes Relative 6.4 % LAB HEMETOLOGY METHOD 10/05/2025 11:04 AM [facility] LAB Eosinophils Relative 1.9 % LAB HEMETOLOGY METHOD 10/05/2025 11:04 AM [facility] LAB Basophils Relative 0.4 % LAB HEMETOLOGY METHOD 10/05/2025 11:04 AM [facility] LAB Immature Granulocytes Relative 0.6 % LAB HEMETOLOGY METHOD 10/05/2025 11:04 AM [facility] LAB Neutrophils Absolute 8.07(H) 1.50 - 7.00 K/mcL LAB HEMETOLOGY METHOD 10/05/2025 11:04 AM [facility] LAB Lymphocytes Absolute 2.63 1.00 - 5.00 K/mcL LAB HEMETOLOGY METHOD 10/05/2025 11:04 AM [facility] LAB Monocytes Absolute 0.75 0.20 - 1.00 K/mcL LAB HEMETOLOGY METHOD 10/05/2025 11:04 AM [facility] LAB Eosinophils Absolute 0.23 0.00 - 0.50 K/[facility] LAB HEMETOLOGY METHOD 10/05/2025 11:04 AM EST [facility] ([facility]) [facility] LAB Basophils Absolute 0.05 0.00 - 0.20 K/[facility] LAB HEMETOLOGY METHOD 10/05/2025 11:04 AM EST [facility] ([facility]) [facility] LAB Immature Granulocytes Absolute 0.07(H) 0.00 - 0.03 K/[facility] LAB HEMETOLOGY METHOD 10/05/2025 11:04 AM EST [facility] ([facility]) [facility] LAB Blood Venous blood specimen / Unknown Venipuncture / Unknown 10/05/2025 7:11 AM EST 10/05/2025 10:43 AM EST us Celina Handley NETWORK SECURITY ARCHITECT LAB BLOOD ORDERABLES Final R esult [facility] ([facility]) [facility] LAB [address] [place] [address], from Last 3 Months Insurance [place]ICA[place] - [place] MEDICARE ADVANTAGE Care Teams Actor Understudy Relationship Specialty Start Date End Date Celina Handley NP [address] [place] [phone] PCP - General 03/10/25
--- OUTSIDE RECORDS SUMMARY | 2025-10-10 19:46 | XMS_ITS | Encounter Summary ---
Author Organization [employer] 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0 - 48.0 % LAB HEMETOLOGY METHOD 10/05/2025 11:04 AM [facility] LAB MCV 80.4 79.0 - 98.0 FL LAB HEMETOLOGY METHOD 10/05/2025 11:04 AM [facility] LAB MCH 24.3(L) 27.0 - 32.0 pcg LAB HEMETOLOGY METHOD 10/05/2025 11:04 AM [facility] LAB MCHC 30.3(L) 32.0 - 37.0 g/dL LAB HEMETOLOGY METHOD 10/05/2025 11:04 AM [facility] LAB RDW 16.2(H) 11.0 - 15.0 % LAB HEMETOLOGY METHOD 10/05/2025 11:04 AM [facility] LAB Platelets 298 130 - 400 K/mcL LAB HEMETOLOGY METHOD 10/05/2025 11:04 AM [facility] LAB MPV 11.6(H) 7.0 - 11.0 FL LAB HEMETOLOGY METHOD 10/05/2025 11:04 AM [facility] LAB NRBC 0.0 <1.0 % LAB HEMETOLOGY METHOD 10/05/2025 11:04 AM [facility] LAB NRBC Absolute 0.00 <0.10 K/mcL LAB HEMETOLOGY METHOD 10/05/2025 11:04 AM [facility] LAB Neutrophils Relative 68.4 % LAB HEMETOLOGY METHOD 10/05/2025 11:04 AM [facility] LAB Lymphocytes Relative 22.3 % LAB HEMETOLOGY METHOD 10/05/2025 11:04 AM [facility] LAB Monocytes Relative 6.4 % LAB HEMETOLOGY METHOD 10/05/2025 11:04 AM [facility] LAB Eosinophils Relative 1.9 % LAB HEMETOLOGY METHOD 10/05/2025 11:04 AM [facility] LAB Basophils Relative 0.4 % LAB HEMETOLOGY METHOD 10/05/2025 11:04 AM [facility] LAB Immature Granulocytes Relative 0.6 % LAB HEMETOLOGY METHOD 10/05/2025 11:04 AM [facility] LAB Neutrophils Absolute 8.07(H) 1.50 - 7.00 K/mcL LAB HEMETOLOGY METHOD 10/05/2025 11:04 AM [facility] LAB Lymphocytes Absolute 2.63 1.00 - 5.00 K/mcL LAB HEMETOLOGY METHOD 10/05/2025 11:04 AM [facility] LAB Monocytes Absolute 0.75 0.20 - 1.00 K/mcL LAB HEMETOLOGY METHOD 10/05/2025 11:04 AM [facility] LAB Eosinophils Absolute 0.23 0.00 - 0.50 K/mcL LAB HEMETOLOGY METHOD 10/05/2025 11:04 AM [facility] LAB Basophils Absolute 0.05 0.00 - 0.20 K/mcL LAB HEMETOLOGY METHOD 10/05/2025 11:04 AM [facility] LAB Immature Granulocytes Absolute 0.07(H) 0.00 - 0.03 K/mcL LAB HEMETOLOGY METHOD 10/05/2025 11:04 AM [facility] LAB Blood Venous blood specimen / Unknown Venipuncture / Unknown 10/05/2025 7:11 AM EST 10/05/2025 10:43 AM EST us Celina Handley NP LAB BLOOD ORDERABLES Final R esult [facility] LAB [address] [place] [address], [place] [phone] documented in this encounter Visit Diagnoses Diagnosis Other [place] [facility] (current) 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 documented in this encounter Care Teams Hem Marker Relationship Specialty Start Date End Date Celina Handley NP [address] [place] [phone] PCP - General 03/10/25 documented as of this encounter
--- OUTSIDE RECORDS SUMMARY | 2025-10-10 19:46 | XMS_ITS | Encounter Summary ---
Author Organization [employer] 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 LAB HEMETOLOGY METHOD 03/23/2025 11:55 AM EDT [facility] ([facility]) [facility] LAB RBC 4.60 3.80 - 5.50 M/[facility] LAB HEMETOLOGY METHOD 03/23/2025 11:55 AM [facility] LAB Hemoglobin 12.9 12.0 - 18.0 g/dL LAB HEMETOLOGY METHOD 03/23/2025 11:55 AM [facility] LAB Hematocrit 38.9 36.0 - 48.0 % LAB HEMETOLOGY METHOD 03/23/2025 11:55 AM [facility] LAB MCV 85.1 79.0 - 98.0 FL LAB HEMETOLOGY METHOD 03/23/2025 11:55 AM [facility] LAB MCH 28.2 27.0 - 32.0 pcg LAB HEMETOLOGY METHOD 03/23/2025 11:55 AM [facility] LAB MCHC 33.2 32.0 - 37.0 g/dL LAB HEMETOLOGY METHOD 03/23/2025 11:55 AM [facility] LAB RDW 13.2 11.0 - 15.0 % LAB HEMETOLOGY METHOD 03/23/2025 11:55 AM [facility] LAB Platelets 223 130 - 400 K/mcL LAB HEMETOLOGY METHOD 03/23/2025 11:55 AM [facility] LAB MPV 12.2(H) 7.0 - 11.0 FL LAB HEMETOLOGY METHOD 03/23/2025 11:55 AM [facility] LAB NRBC 0.0 <1.0 % LAB HEMETOLOGY METHOD 03/23/2025 11:55 AM [facility] LAB NRBC Absolute 0.00 <0.10 K/mcL LAB HEMETOLOGY METHOD 03/23/2025 11:55 AM [facility] LAB Neutrophils Relative 65.5 % LAB HEMETOLOGY METHOD 03/23/2025 11:55 AM [facility] LAB Lymphocytes Relative 25.1 % LAB HEMETOLOGY METHOD 03/23/2025 11:55 AM [facility] LAB Monocytes Relative 6.0 % LAB HEMETOLOGY METHOD 03/23/2025 11:55 AM EDT [facility] LAB Eosinophils Relative 2.0 % LAB HEMETOLOGY METHOD 03/23/2025 11:55 AM EDT [facility] LAB Basophils Relative 0.5 % LAB HEMETOLOGY METHOD 03/23/2025 11:55 AM EDT [facility] LAB Immature Granulocytes Relative 0.9 % LAB HEMETOLOGY METHOD 03/23/2025 11:55 AM EDT [facility] LAB Neutrophils Absolute 5.00 1.50 - 7.00 K/mcL LAB HEMETOLOGY METHOD 03/23/2025 11:55 AM EDT [facility] LAB Lymphocytes Absolute 1.92 1.00 - 5.00 K/mcL LAB [facility]ETOLOGY [facility] Monocytes Absolute 0.46 0.20 - 1.00 K/mcL LAB HEMETOLOGY METHOD 03/23/2025 11:55 AM EDT [facility] LAB Eosinophils Absolute 0.15 0.00 - 0.50 K/mcL LAB HEMETOLOGY METHOD 03/23[facility]2025 11[facility] Basophils Absolute 0.04 0.00 - 0.20 K/mcL LAB HEMETOLOGY METHOD 03/23/2025 11:55 AM EDT [facility] LAB Immature Granulocytes Absolute 0.07(H) 0.00 - 0.03 K/mcL LAB HEMETOLOGY METHOD 03/23/2025 11:55 AM EDT [facility] LAB Blood Venous blood specimen / Unknown 03/23/2025 6:23 AM EDT 03/23/2025 11:26 AM EDT us Celina Handley NP LAB BLOOD ORDERABLES Final R esult [facility] LAB [address] [place] [address], documented in this encounter Visit Diagnoses Diagnosis Other jail (current) 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 documented in this encounter Care Teams Station Detective Relationship Specialty Start Date End Date Celina Handley NP [address] [place] [phone] PCP - General 03/10/25 documented as of this encounter
--- OUTSIDE RECORDS SUMMARY | 2025-10-10 19:46 | XMS_ITS | Encounter Summary ---
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 CBC AND DIFFERENTIAL Routine 08/03/2025 7:32 AM EDT Other jail (current) 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 documented in this encounter Results * (ABNORMAL) CBC auto differential (08/03/2025 7:32 AM EDT) WBC 7.8 4.8 - 10.8 K/[facility] LAB HEMETOLOGY METHOD 08/03/2025 11:41 AM EDT [facility] LAB RBC 4.10 3.80 - 5.50 M/[facility] LAB HEMETOLOGY METHOD 08/03/2025 11:41 AM [facility] LAB Hemoglobin 10.2(L) 12.0 - 18.0 g/dL LAB HEMETOLOGY METHOD 08/03/2025 11:41 AM [facility] LAB Hematocrit 33.1(L) 36.0 - 48.0 % LAB HEMETOLOGY METHOD 08/03/2025 11:41 AM [facility] LAB MCV 80.9 79.0 - 98.0 FL LAB HEMETOLOGY METHOD 08/03/2025 11:41 AM [facility] LAB MCH 24.9(L) 27.0 - 32.0 pcg LAB HEMETOLOGY METHOD 08/03/2025 11:41 AM [facility] LAB MCHC 30.8(L) 32.0 - 37.0 g/dL LAB HEMETOLOGY METHOD 08/03/2025 11:41 AM [facility] LAB RDW 14.4 11.0 - 15.0 % LAB HEMETOLOGY METHOD 08/03/2025 11:41 AM [facility] LAB Platelets 264 130 - 400 K/mcL LAB HEMETOLOGY METHOD 08/03/2025 11:41 AM [facility] LAB MPV 11.9(H) 7.0 - 11.0 FL LAB HEMETOLOGY METHOD 08/03/2025 11:41 AM [facility] LAB NRBC 0.0 <1.0 % LAB HEMETOLOGY METHOD 08/03/2025 11:41 AM [facility] LAB NRBC Absolute 0.00 <0.10 K/mcL LAB HEMETOLOGY METHOD 08/03/2025 11:41 AM [facility] LAB Neutrophils Relative 63.8 % LAB HEMETOLOGY METHOD 08/03/2025 11:41 AM [facility] LAB Lymphocytes Relative 24.0 % LAB HEMETOLOGY METHOD 08/03/2025 11:41 AM EDT [facility] LAB Monocytes Relative 8.1 % LAB HEMETOLOGY METHOD 08/03/2025 11:[facility] Eosinophils Relative 3.1 % LAB HEMETOLOGY METHOD 08/03/2025 11:41 AM [facility] LAB Basophils Relative 0.5 % LAB HEMETOLOGY METHOD 08/03/2025 11:41 [facility] Immature Granulocytes Relative 0.5 % LAB HEMETOLOGY METHOD 08/03/2025 11:41 [facility] Neutrophils Absolute 4.97 1.50 - 7.00 K/mcL LAB HEMETOLOGY METHOD 08/03/2025 11:41 AM [facility] LAB Lymphocytes Absolute 1.87 1.00 - 5.00 K/mcL LAB HEMETOLOGY METHOD 08/03/2025 11:41 AM [facility] LAB Monocytes Absolute 0.63 0.20 - 1.00 K/mcL LAB HEMETOLOGY METHOD 08/03/2025 11:41 AM [facility] LAB Eosinophils Absolute 0.24 0.00 - 0.50 K/mcL LAB HEMETOLOGY METHOD 08/03/2025 11:41 AM [facility] LAB Basophils Absolute 0.04 0.00 - 0.20 K/mcL LAB HEMETOLOGY METHOD 08/03/2025 11:41 AM [facility] LAB Immature Granulocytes Absolute 0.04(H) 0.00 - 0.03 K/mcL LAB HEMETOLOGY METHOD 08/03/2025 11:41 AM [facility] LAB Blood Venous blood specimen / Unknown Venipuncture / Unknown 08/03/2025 7:32 AM EDT 08/03/2025 10:38 AM EDT us Celina Handley NP LAB BLOOD ORDERABLES Final R esult [facility] H[facility] LAB [address] [place] [address], documented in this encounter Visit Diagnoses Diagnosis Other jail (current) 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 documented in this encounter Care Teams [employer] Spr[employer] Relationship Specialty Start Date End Date Celina Handley NP [address] [place] [phone] PCP - General 03/10/25 documented as of this encounter
--- OUTSIDE RECORDS SUMMARY | 2025-10-10 19:46 | XMS_ITS | Encounter Summary ---
Author Organization [employer] [facility] Address [address] [place] [address] Care Team Providers Care Watch Repairer Name Role Phone Celina Handley NP Primary Care Provider [phone] Encounter Details Date Type Department Care Team (Late st Contact Info) Description 04/06/2025 Lab Requisition [facility] - Main Lab [address] [facility] [employer] 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 LAB Eosinophils Relative 2.0 % LAB HEMETOLOGY METHOD 04/06/2025 10:[address] [facility] LAB Basophils Relative 0.3 % LAB HEMETOLOGY METHOD 04/06/2025 10:[address] [facility] LAB Immature Granulocytes Relative 0.5 % LAB HEMETOLOGY METHOD 04/06/2025 10:[address] [facility] LAB Neutrophils Absolute 3.53 1.50 - 7.00 K/mcL LAB HEMETOLOGY METHOD 04/06/2025 10:[address] [facility] LAB Lymphocytes Absolute 1.73 1.00 - 5.00 K/mcL LAB HEMETOLOGY METHOD 04/06/2025 10:[address] [facility] LAB Monocytes Absolute 0.46 0.20 - 1.00 K/mcL LAB HEMETOLOGY METHOD 04/06/2025 10:[address] [facility] LAB Eosinophils Absolute 0.12 0.00 - 0.50 K/mcL LAB HEMETOLOGY METHOD 04/06[facility]25 10[facility] Basophils Absolute 0.02 0.00 - 0.20 K/mcL LAB HEMETOLOGY METHOD 04/06/2025 10:[address] [facility] LAB Immature Granulocytes Absolute 0.03 0.00 - 0.03 K/mcL LAB HEMETOLOGY METHOD 04/06/2025 10:[address] [facility] LAB Blood Venous blood specimen / Unknown Venipuncture / Unknown 04/06/2025 8:52 AM EDT 04/06/2025 10:30 AM EDT us Celina Handley NP LAB BLOOD ORDERABLES Final R esult [facility] LAB [address] [place] [address], documented in this encounter Visit Diagnoses Diagnosis Other jail (current) 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 documented in this encounter Care Teams Watch Repairer Relationship Specialty Start Date End Date Celina Handley NP [address] [place] [phone] PCP - General 03/10/25 documented as of this encounter
--- NOTE | 2025-10-10 19:48 | ED_ITS ---
HPI - General Adult General Chief complaint: General Medical Stated complaint: sore throat Time Seen by Provider: 10/10/25 19:41 Source: patient and EMS Mode of arrival: EMS Limitations: no limitations History of Present Illness ED Provider: Nguyen Walters APRN HPI narrative: 30 yo female with PMH of asthma, GERD, DM, anxiety, schizoaffective disorder, bipolar disorder here with complaints of sore throat, cough since yesterday. She noticed some squeaking from her throat tonight prompting EMS call. She denies SOB, fevers, chills, body aches, diff swallowing, chest pain, headache, neck pain/stiffness, abdominal pain, vomiting, diarrhea. Coming from a longterm where several residents have flu like symptoms. Patient also reports vaginal itching x several days. No vaginal discharge, urinary symptoms. Wants STI testing but reports she hasnt had sexual intercourse since 2021. Related Data Home Medications ?Medication ?Instructions ?Recorded ?Confirmed atomoxetine 40 mg capsule 40 mg PO QAM 07/12/25 atropine 1 % eye drops drp ophthalmic (eye) 5 07/12/25 sennosides 8.6 mg-docusate sodium 1 tab-cap PO BEDTIME PRN 07/12/25 07/12/25 50 mg capsule (Senna Plus) constipation Previous Rx's ?Medication ?Instructions ?Recorded clonidine HCl 0.1 mg tablet 0.1 mg PO BID PRN Anxiety 30 days 11/01/23 #60 tabs blood-glucose meter (OneTouch #1 ea 07/22/25 Ultra2 Meter) cephalexin 500 mg capsule 500 mg PO BID #14 caps 08/06 fluconazole 200 mg tablet 200 mg PO DAILY #1 tab 08/06 empagliflozin 25 mg tablet 25 mg PO DAILY #90 tabs (Jardiance) metformin 1,000 mg tablet 1,000 mg PO BID 30 days #60 tabs 08/20/25 semaglutide 0.25 mg or 0.5 mg (2 0.25 mg (0.368 mL) pabon bcut QWEEK 4 08/20/25 mg/3 mL) subcutaneous pen injector weeks #1.472 mL (Ozempic) albuterol sulfate 90 mcg/actuation 2 puff inhalation R Q4H PRN short 09/08/25 aerosol inhaler (Ventolin HFA) of breath 30 days #1 in haler lancets 33 gauge (OneTouch Delica #100 ea 09/18/25 Plus Lancet) blood sugar diagnostic (OneTouch #100 ea 10/01/25 Ultra Test strips) atorvastatin 10 mg tablet (Lipitor) 10 mg PO DAILY #90 tabs 10/07/25 Allergies Allergy/AdvReac Type Severity Reaction Status Date / Time clotrimazole Allergy Severe Rash Verified 10/10/25 19:44 cat dander (cats) Allergy Intermediate Eye Verified 10/10/25 19:44 Swelling house dust Allergy Intermediate Sneezing Verified 10/10/25 19:44 olanzapine Allergy Muscle Verified 10/10/25 19:44 cramps seafood Allergy Anaphylaxis Verified 10/10/25 19:44 Review of Systems Review of Systems: Yes all other systems are reviewed and are negative Constitutional: Constitutional: Reports no additional constitutional complaints, Denies body ache(s), Denies chills, Denies fever(s), Denies headache(s) and Denies weakness Eyes: Eyes: Reports no additional eye complaints and Denies change in vision ENT: Reports system reviewed and no additional complaints, except as documented, Denies dizziness, Denies headache(s), Denies nasal congestion, Denies nasal discharge, Denies neck pain and Reports sore throat Cardiovascular: Cardiovascular: Reports no additional cardiovascular complaints, Denies chest pain, Denies leg edema and Denies dyspnea Respiratory: Respiratory: Reports no additional respiratory complaints, Reports cough and Denies dyspnea Gastrointestinal: Gastrointestinal: Reports no additional gastrointestinal complaints, Denies abdominal pain, Denies diarrhea, Denies nausea and Denies vomiting Genitourinary: Genitourinary: Reports no additional female genitourinary complaints, Denies dysuria, Denies pelvic pain, Denies urinary incontinence, Denies urinary hesitancy, Denies urinary urgency, Denies vaginal discharge, Denies vaginal dryness and Reports vaginal pruritus Musculoskeletal: Musculoskeletal: Reports no additional musculoskeletal complaints, Denies back pain, Denies arthralgias, Denies joint swelling, Denies neck pain, Denies numbness and Denies tingling Integumentary/Breasts: Skin/Breast: Reports system reviewed and no additional complaints, except as docu and Denies rash Neurologic: Reports system reviewed and no additional complaints, except as documented, Denies Abnormal speech present, Denies dizziness, Denies headache(s), Denies numbness, Denies tingling and Denies weakness PMFSH Past Medical History Attestation statement: The following information was validated with the patient. Source: old records reviewed and nursing notes reviewed Medical History Asthma GERD (gastroesophageal reflux disease) Diabetes mellitus Anxiety Schizoaffective disorder Bipolar I disorder Delusional disorder Surgical History History of lumpectomy History of tonsillectomy and adenoidectomy History of surgery of head Family History Family History Other Family history of breast cancer Mental health disorder Social History Social History Household Members: Other Household Members Other:: [facility] Housing: Other Housing Other:: [facility] Do you presently have visiting nurse or other home services: No Patient Tobacco Use Status: Never used Tobacco Smoked in Last 30 Days: No e-Cigarette/Vaping Use: Never Used Second Hand Smoke Exposure: No Use of substances other than those prescribed or required for medical reasons: No Advance Directives: No Advance Directives Information Provided: No Patient : No service: No Current occupational status: disabled Sexual orientation: Lesbian/Ponce/Homosexual Cognitive needs: No Hearing needs: No Vision needs: Yes (Glasses) Physical Exam ED Vital Signs: Vital Signs - 24 hr 10/10/25 19:40 Temperature 99.1 F Pulse Rate 112 H Respiratory Rate 16 Blood Pressure 164/86 H Pulse Oximetry 95 Oxygen Delivery Method Room Air BMI result Body Mass Index 41.6 Const General: cooperative, healthy appearing, comfortable and no acute distress Orientation/consciousness: patient oriented x3 Limitations: no limitations HENMT Head: Yes normal to inspection Ears: hearing grossly normal bilaterally and TM's normal bilaterally General nose exam: Normal external nose present Face and sinus: Yes normal facial exam Mouth: Normal oral and palatal mucosa present Throat: Yes posterior oropharynx normal, Yes tonsils normal and Yes uvula midline Eyes General: appearance normal, both eyes and all related structures Pupils: Equal, round and reactive pupils present Neck Neck: Yes normal visual inspection, Yes full ROM, Yes no lymphadenopathy and Yes no meningeal signs Chest Chest palpation & inspection: normal inspection of the chest Resp Effort & Inspection: normal respiratory effort Auscultation: clear to auscultation bilaterally Cardio Rate: regular rate Rhythm: regular rhythm Peripheral pulses: Peripheral pulses 2+ throughout GI Inspection: Yes normal to inspection Palpation (GI): Soft to palpation and nontender Auscultation: normal bowel sounds Other: deferred pelvic exam Back/Spine/Pelvis Thoracic/Lumbar Spine: thoracic and lumbar spine normal to inspection Skin General skin exam: no rashes or lesions noted Neuro General: patient oriented x3, no meningeal signs, no focal motor deficits and normal sensation to monofilament Cranial nerves: Yes Equal, round and reactive pupils present Cognition (Neuro): normal cognition Speech: No Abnormal speech present Gait exam (Neuro): Normal gait present Motor exam (neuro): 5/5 motor strength present throughout Extrem General: Yes normal to inspection Course Course Course Narrative: influenza a positive. No hypoxia or tachypnea. COVID, RSV and strep testing are negative. Additional STI in vaginal panel is pending. Explained to patient that we will call her with results as needed. Reviewed worrisome signs and symptoms of when to return to the emergency room. Comfortable plan for discharge home. Medications Administered Discontinued Medications Generic Name Dose Route Start Last Admin Trade Name Freq PRN Reason Stop Dose Admin Acetaminophen 975 mg 10/10/25 19:42 10/10/25 19:54 Acetaminophen 325 Mg Tablet PO 10/10/25 19:43 975 mg ONCE ONE Administration Medical Decision Making Medical Decision Making [facility] Narrative: 30 yo female with PMH of asthma, GERD, DM, anxiety, schizoaffective disorder, bipolar disorder here with complaints of sore throat, cough since yesterday. She noticed some squeaking from her throat tonight prompting EMS call. She denies SOB, fevers, chills, body aches, diff swallowing, chest pain, headache, neck pain/stiffness, abdominal pain, vomiting, diarrhea. Coming from a longterm where several residents have flu like symptoms. Patient also reports vaginal itching x several days. No vaginal discharge, urinary symptoms. Wants STI testing but reports she hasnt had sexual intercourse since 2021. Posterior orophaynx normal in appearance Normal TM No lymphadenopathy or meningeal signs No stridor LS CTA Patient has low grade fever, tachycardia Deferred exam Will obtain viral testing, strep testing Will send BV, CTNG Will give APAP Differential Diagnosis Differential Diagnoses: The differential diagnosis associated with the presentation includes viral syndrome, influenza, strep pharyngitis STI, vaginitis Admission/Observation Consideration of admission/observation: Escalation of care including admission/observation considered influenza A-positive with no hypoxia or tachypnea requiring supplemental oxygen and or admission Lab Data [facility] Lab Attestation statement: I reviewed the patient's lab results. Labs: Lab Results 10/10/25 Range/Units 19:57 Influenza Type A (PCR) POSITIVE A (Negative) Influenza Type B (PCR) NEGATIVE (Negative) RSV RNA Qual (PCR) NEGATIVE (Negative) SARS-CoV-2 RNA (RT-PCR) NEGATIVE (Negative) S. pyogenes GrpA ROSANA Negative (Negative) Independent Historian Clinical information obtained from an independent historian. History obtained from or confirmed by: EMS Prescription Management I considered prescription management with: Antiviral Discharge Plan Discharge Clinical Impression: Influenza A Patient Disposition: Home, Self-Care Instructions: Influenza (ED), Droplet Precautions (ED) Additional Instructions: Testing for Influenza A is positive alternate Motrin and Tylenol for pain or fever if able Increase fluids, rest testing for COVID, RSV and strep are negative We did send testing for vaginal infections and STDs we will not have these resul ts back today. We will call you if they are positive and call an additional treatment as needed Prescriptions: No Action (DME) blood-glucose meter [OneTouch Ultra2 Meter] [facility] [place] Rx Instructions .Route Qty: 1 0RF Rx Instructions: As directed; to check sugars BID Jardiance 25 mg tablet 25 mg PO DAILY Qty: 90 0RF albuterol sulfate [Ventolin HFA] 90 mcg/actuation HFA aerosol inhaler 2 puff inhalation RQ4H PRN (Reason: short of breath) 30 Days Qty: 1 0RF (DME) lancets [OneTouch Delica Plus Lancet] [facility] See Rx Instructions .Route Qty: 100 0RF Rx Instructions: As directed; to check sugars BID (DME) OneTouch Ultra Test Strip See Rx Instructions .Route Qty: 100 0RF Rx Instructions: As directed; to check sugars BID atorvastatin [Lipitor] 10 mg tablet 10 mg PO DAILY Qty: 90 0RF clonidine HCl 0.1 mg tablet 0.1 mg PO BID PRN (Reason: Anxiety) 30 Days Qty: 60 0RF cephalexin 500 mg capsule 500 mg PO BID Qty: 14 0RF fluconazole 200 mg tablet 200 mg PO DAILY Qty: 1 0RF atropine 1 % drops ophthalmic (eye) atomoxetine 40 mg capsule 40 mg PO QAM Senna Plus 8.6-50 mg capsule 1 tab-cap PO BEDTIME PRN (Reason: constipation) metformin 1,000 mg tablet 1,000 mg PO BID 30 Days Qty: 60 0RF Ozempic 0.25 mg or 0.5 mg (2 mg/3 mL) pen injector 0.25 mg subcut QWEEK 28 Days Qty: 1.472 0RF Referrals: Kristyn Mckeon PA-C [Primary Care Provider, Internal Medicine] Print Language: Greenlandic
[2025-10-10 20:14] LABS: Strep A Nucleic Acid Negative (Negative)
[2025-10-10 20:45] LABS: Resp Syncy Virus RNA Qual PCR NEGATIVE (Negative); SARS COV2 PCR INHOUSE NEGATIVE (Negative)
[2025-10-10 21:05] VITALS: BP 133/80; PULSE 92; RESP 16; TEMP 37; O2SAT 94
[2025-10-10 21:06] VITALS: BP 133/80; PULSE 92; RESP 16; TEMP 37; O2SAT 94
[2025-10-10 21:08] VITALS: BP 133/80; PULSE 92; RESP 16; TEMP 37
[2025-10-10 22:40] LABS: Bacterial Vaginosis PCR POSITIVE (Negative); Candida Group PCR DETECTED (Not Detect); Candida glab krusei PCR DETECTED (Not Detect); Trichomonas vaginalis PCR NOT DETECTED (Not Detect)
[2025-10-10 23:11] LABS: CT PCR NOT DETECTED (Not Detect.); NG PCR NOT DETECTED (Not Detect.)
== END 2025-10-10 21:15 | disposition home or self-care (01) ==
PROVIDERS: Nurse Practitioner Family; Emergency Provider Emergency Medicine
DX: J10.1 Influenza due to other identified influenza virus with other respiratory manifestations (principal); N76.0 Acute vaginitis; E11.9 Type 2 diabetes mellitus without complications; E78.00 Pure hypercholesterolemia, unspecified; J45.909 Unspecified asthma, uncomplicated; Z79.84 Long term (current) use of oral hypoglycemic drugs; Z79.02 Long term (current) use of antithrombotics/antiplatelets; Z79.899 Other long term (current) 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; Z03.818 Encounter for observation for suspected exposure to other biological agents ruled out
CPT/HCPCS: 81515; 87491; 87591; 87637; 87651; 99283; 99284

== ENCOUNTER 2025-10-11 13:54 | Outpatient (AMB) | payer OTHER, MEDICARE, MEDICAID, SELFPAY ==
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
[2025-10-11 13:59] VITALS: BP 108/58; PULSE 102; RESP 18; TEMP 36.6; O2SAT 97; BMI 39.5
--- OUTSIDE RECORDS SUMMARY | 2025-10-11 17:26 | XMS_ITS | Encounter Summary ---
Author Organization 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 CBC AND DIFFERENTIAL Routine 03/09/2025 7:56 AM EDT Other usp (current) 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 documented in this encounter Results * (ABNORMAL) CBC auto differential (03/09/2025 7:56 AM EDT) WBC 6.7 4.8 - 10.8 K/[facility] LAB HEMETOLOGY METHOD 03/09/2025 9:38 AM EDT [facility] LAB RBC 4.80 3.80 - 5.50 M/[facility] LAB HEMETOLOGY METHOD 03/09/2025 9:38 AM [facility] LAB Hemoglobin 13.9 12.0 - 18.0 g/dL LAB HEMETOLOGY METHOD 03/09/2025 9:38 AM [facility] LAB Hematocrit 41.2 36.0 - 48.0 % LAB HEMETOLOGY METHOD 03/09/2025 9:38 AM [facility] LAB MCV 85.7 79.0 - 98.0 FL LAB HEMETOLOGY METHOD 03/09/2025 9:38 AM [facility] LAB MCH 28.9 27.0 - 32.0 pcg LAB HEMETOLOGY METHOD 03/09/2025 9:38 AM [facility] LAB MCHC 33.7 32.0 - 37.0 g/dL LAB HEMETOLOGY METHOD 03/09/2025 9:38 AM [facility] LAB RDW 12.7 11.0 - 15.0 % LAB HEMETOLOGY METHOD 03/09/2025 9:38 AM [facility] LAB Platelets 203 130 - 400 K/mcL LAB HEMETOLOGY METHOD 03/09/2025 9:38 AM [facility] LAB MPV 11.8(H) 7.0 - 11.0 FL LAB HEMETOLOGY METHOD 03/09/2025 9:38 AM [facility] LAB NRBC 0.0 <1.0 % LAB HEMETOLOGY METHOD 03/09/2025 9:38 AM [facility] LAB NRBC Absolute 0.00 <0.10 K/mcL LAB HEMETOLOGY METHOD 03/09/2025 9:38 AM [facility] LAB Neutrophils Relative 56.4 % LAB HEMETOLOGY METHOD 03/09/2025 9:38 AM [facility] LAB Lymphocytes Relative 32.6 % LAB HEMETOLOGY METHOD 03/09/2025 9:38 AM [facility] LAB Monocytes Relative 8.4 % LAB HEMETOLOGY METHOD 03/09/2025 9:38 AM EDT [facility] LAB Eosinophils Relative 1.9 % LAB HEMETOLOGY METHOD 03/09/2025 9:38 AM EDT [facility] LAB Basophils Relative 0.4 % LAB HEMETOLOGY METHOD 03/09/2025 9:38 AM EDT [facility] LAB Immature Granulocytes Relative 0.3 % LAB HEMETOLOGY METHOD 03/09/2025 9:38 AM EDT [facility] LAB Neutrophils Absolute 3.77 1.50 - 7.00 K/mcL LAB HEMETOLOGY METHOD 03/09/2025 9:38 AM EDT [facility] LAB Lymphocytes Absolute 2.18 1.00 - 5.00 K/mcL LAB HEMETOLOGY METHOD 03/09/2025 9:38 AM EDT [facility] LAB Monocytes Absolute 0.56 0.20 - 1.00 K/mcL LAB HEMETOLOGY METHOD 03/09/2025 9:38 AM EDT [facility] LAB Eosinophils Absolute 0.13 0.00 - 0.50 K/mcL LAB HEMETOLOGY METHOD 03/09/2025 9:38 AM EDT [facility] LAB Basophils Absolute 0.03 0.00 - 0.20 K/mcL LAB HEMETOLOGY METHOD 03/09/2025 9:38 AM EDT [facility] LAB Immature Granulocytes Absolute 0.02 0.00 - 0.03 K/mcL LAB HEMETOLOGY METHOD 03/09/2025 9:38 AM EDT [facility] LAB Blood Venous blood specimen / Unknown Venipuncture / Unknown 03/09/2025 7:56 AM EDT 03/09/2025 8:45 AM EDT us Celina Handley NP LAB BLOOD ORDERABLES Final R esult [facility] LAB [address] [place] [address], documented in this encounter Visit Diagnoses Diagnosis Other usp (current) 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 documented in this encounter Care Teams Cloth Covered Helmet Puller Relationship Specialty Start Date End Date Celina Handley NP [address] [place] [phone] PCP - General 03/10/25 documented as of this encounter
--- OUTSIDE RECORDS SUMMARY | 2025-10-11 17:26 | XMS_ITS | Encounter Summary ---
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 LAB RBC 4.60 3.80 - 5.50 M/[facility] LAB HEMETOLOGY METHOD 03/23/2025 11:55 AM [facility] LAB Hemoglobin 12.9 12.0 - 18.0 g/dL LAB HEMETOLOGY METHOD 03/23/2025 11:55 AM [facility] LAB Hematocrit 38.9 36.0 - 48.0 % LAB HEMETOLOGY METHOD 03/23/2025 11:55 AM [facility] LAB MCV 85.1 79.0 - 98.0 FL LAB HEMETOLOGY METHOD 03/23/2025 11:55 AM [facility] LAB MCH 28.2 27.0 - 32.0 pcg LAB HEMETOLOGY METHOD 03/23/2025 11:55 AM [facility] LAB MCHC 33.2 32.0 - 37.0 g/dL LAB HEMETOLOGY METHOD 03/23/2025 11:55 AM [facility] LAB RDW 13.2 11.0 - 15.0 % LAB HEMETOLOGY METHOD 03/23/2025 11:55 AM [facility] LAB Platelets 223 130 - 400 K/mcL LAB HEMETOLOGY METHOD 03/23/2025 11:55 AM [facility] LAB MPV 12.2(H) 7.0 - 11.0 FL LAB HEMETOLOGY METHOD 03/23/2025 11:55 AM [facility] LAB NRBC 0.0 <1.0 % LAB HEMETOLOGY METHOD 03/23/2025 11:55 AM [facility] LAB NRBC Absolute 0.00 <0.10 K/mcL LAB HEMETOLOGY METHOD 03/23/2025 11:55 AM [facility] LAB Neutrophils Relative 65.5 % LAB HEMETOLOGY METHOD 03/23/2025 11:55 AM [facility] LAB Lymphocytes Relative 25.1 % LAB HEMETOLOGY METHOD 03/23/2025 11:55 AM [facility] LAB Monocytes Relative 6.0 % LAB HEMETOLOGY METHOD 03/23/2025 11:55 AM EDT [facility] LAB Eosinophils Relative 2.0 % LAB HEMETOLOGY METHOD 03/23/2025 11:55 AM EDT [facility] LAB Basophils Relative 0.5 % LAB HEMETOLOGY METHOD 03/23/2025 11:55 AM EDT [facility] LAB Immature Granulocytes Relative 0.9 % LAB HEMETOLOGY METHOD 03/23/2025 11:55 AM EDT [facility] LAB Neutrophils Absolute 5.00 1.50 - 7.00 K/mcL LAB HEMETOLOGY METHOD 03/23/2025 11:55 AM EDT [facility] LAB Lymphocytes Absolute 1.92 1.00 - 5.00 K/mcL LAB HEMETOLOGY METHOD [facility] Monocytes Absolute 0.46 0.20 - 1.00 K/mcL LAB HEMETOLOGY METHOD 03/23/2025 11:55 AM EDT [facility] LAB Eosinophils Absolute 0.15 0.00 - 0.50 K/mcL LAB HEMETOLOGY METHOD 03/23/2025 11:[facility] Basophils Absolute 0.04 0.00 - 0.20 K/mcL LAB HEMETOLOGY METHOD 03/23/2025 11:55 AM EDT [facility] LAB Immature Granulocytes Absolute 0.07(H) 0.00 - 0.03 K/mcL LAB HEMETOLOGY METHOD 03/23/2025 11:55 AM EDT [facility] LAB Blood Venous blood specimen / Unknown 03/23/2025 6:23 AM EDT 03/23/2025 11:26 AM EDT us Celina Handley NP LAB BLOOD ORDERABLES Final R esult [facility] [address] [place] [address], documented in this encounter Visit Diagnoses Diagnosis Other fpc (current) 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 documented in this encounter Care Teams Recreational Leader Relationship Specialty Start Date End Date Celina Handley NP [address] [place] [phone] PCP - General 03/10/25 documented as of this encounter
--- OUTSIDE RECORDS SUMMARY | 2025-10-11 17:26 | XMS_ITS | Encounter Summary ---
Author Organization [employer] [facility] [facility] Address [address] [place] [address] Care Team Providers Care Content Assistant Name Role Phone Celina Handley NP Primary Care Provider [phone] Encounter Details Date Type Department Care Team (Late st Contact Info) Description 09/21/2025 Lab Requisition [facility] - Main Lab [address] [facility] [place] [address] Celina Handley NP [address] [place] [address] Other jail (current) 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 [...] DIFFERENTIAL Routine 09/21/2025 7:19 AM EST Other city carrier (current) 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 CBC AND DIFFERENTIAL Routine 09/21/2025 7:19 AM EST Other jail (current) 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 documented in this encounter Results * (ABNORMAL) CBC auto differential (09/21/2025 7:19 AM EST) WBC 13.9(H) 4.8 - 10.8 K/[facility] LAB HEMETOLOGY METHOD 09/21/2025 10:14 AM EST [facility] LAB RBC 4.40 3.80 - 5.50 M/[facility] LAB HEMETOLOGY METHOD 09/21/2025 10:14 AM [facility] LAB HEMETOLOGY METHOD 09/21/2025 10:14 AM EST [facility] LAB Eosinophils Relative 1.6 % LAB [...] LAB HEMETOLOGY METHOD 09/21/2025 10:14 AM EST [facility] LAB Eosinophils Absolute 0.22 0.00 - [...] esult [facility] [address] [place] [address], documented in this encounter Visit Diagnoses Diagnosis Other jail (current) 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 documented in this encounter Care Teams Content Assistant Relationship Specialty Start Date End Date Celina Handley NP [address] [place] [phone] PCP - General 03/10/25 documented as of this encounter
--- OUTSIDE RECORDS SUMMARY | 2025-10-11 17:26 | XMS_ITS | Encounter Summary ---
Author Organization [facility] Address [address] [place] [address] Care Team Providers Care Sewage Treatment Plant Operator Name Role Phone Celina Handley NP Primary Care Provider Encounter Details Date Type Department Care Team (Late st Contact Info) Description 04/06/2025 Lab Requisition [facility] - Main Lab [address] [facility] [place] [address] Celina Handley NP [address] [place] [address] Other skilled nursing (current) 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 Social History Tobacco Use [...] DIFFERENTIAL Routine 04/06/2025 8:52 AM EDT Other technician terminal and repeater (current) 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 CBC AND DIFFERENTIAL Routine 04/06/2025 8:52 AM EDT Other skilled nursing (current) 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 documented in this encounter Results * (ABNORMAL) CBC auto differential (04/06/2025 8:52 AM EDT) WBC 5.9 4.8 - 10.8 K/[facility] LAB HEMETOLOGY METHOD 04/06/2025 10:49 AM EDT [facility] LAB RBC 4.40 3.80 - 5.50 M/[facility] LAB HEMETOLOGY METHOD 04/06/2025 10:49 AM [facility] LAB Hemoglobin 12.4 12.0 - 18.0 g/dL LAB HEMETOLOGY METHOD 04/06/2025 10:49 AM [facility] LAB Hematocrit 37.3 36.0 - 48.0 % LAB HEMETOLOGY METHOD 04/06/2025 10:49 AM [facility] LAB MCV 85.0 79.0 - 98.0 FL LAB HEMETOLOGY METHOD 04/06/2025 10:49 AM [facility] LAB MCH 28.2 27.0 - 32.0 pcg LAB HEMETOLOGY METHOD 04/06/2025 10:49 AM [facility] LAB MCHC 33.2 32.0 - 37.0 g/dL LAB HEMETOLOGY METHOD 04/06/2025 10:49 AM [facility] LAB RDW 12.9 11.0 - 15.0 % LAB HEMETOLOGY METHOD 04/06/2025 10:49 AM [facility] LAB Platelets 224 130 - 400 K/mcL LAB HEMETOLOGY METHOD 04/06/2025 10:49 AM [facility] LAB MPV 11.8(H) 7.0 - 11.0 FL LAB HEMETOLOGY METHOD 04/06/2025 10:49 AM [facility] LAB NRBC 0.0 <1.0 % LAB HEMETOLOGY METHOD 04/06/2025 10:49 AM [facility] LAB NRBC Absolute 0.00 <0.10 K/mcL LAB HEMETOLOGY METHOD 04/06/2025 10:49 AM [facility] LAB Neutrophils Relative 60.0 % LAB HEMETOLOGY METHOD 04/06/2025 10:49 AM [facility] LAB Lymphocytes Relative 29.4 % LAB HEMETOLOGY METHOD 04/06/2025 10:49 AM [facility] LAB Monocytes Relative 7.8 % LAB HEMETOLOGY METHOD 04/06/2025 10:49 AM EDT [facility] LAB Eosinophils Relative 2.0 % LAB HEMETOLOGY METHOD 04/06/2025 10:49 AM EDT [facility] LAB Basophils Relative 0.3 % LAB HEMETOLOGY METHOD 04/06/2025 10:49 AM EDT [facility] LAB Immature Granulocytes Relative 0.5 % LAB HEMETOLOGY METHOD 04/06/2025 10:49 AM EDT [facility] LAB Neutrophils Absolute 3.53 1.50 - 7.00 K/mcL LAB HEMETOLOGY METHOD 04/06/2025 10:49 AM EDT [facility] LAB Lymphocytes Absolute 1.73 1.00 - 5.00 K/mcL LAB HEMETOLOGY METHOD 04/06/2025 10:49 AM EDT [facility] LAB Monocytes Absolute 0.46 0.20 - 1.00 K/mcL LAB HEMETOLOGY METHOD 04/06/2025 10:49 AM EDT [facility] LAB Eosinophils Absolute 0.12 0.00 - 0.50 K/mcL LAB [facility]OLOGY [facility] Basophils Absolute 0.02 0.00 - 0.20 K/mcL LAB HEMETOLOGY METHOD 04/06/2025 10:49 AM EDT [facility] LAB Immature Granulocytes Absolute 0.03 0.00 - 0.03 K/mcL LAB HEMETOLOGY METHOD 04/06/2025 10:49 AM EDT [facility] LAB Blood Venous blood specimen / Unknown Venipuncture / Unknown 04/06/2025 8:52 AM EDT 04/06/2025 10:30 AM EDT us Celina Handley NP LAB BLOOD ORDERABLES Final R esult [facility] LAB [address] [place] [address], documented in this encounter Visit Diagnoses Diagnosis Other skilled nursing (current) 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 documented in this encounter Care Teams Sewage Treatment Plant Operator Relationship Specialty Start Date End Date Celina Handley NP [address] [place] [phone] PCP - General 03/10/25 documented as of this encounter
--- OUTSIDE RECORDS SUMMARY | 2025-10-11 17:26 | XMS_ITS | Clinical Summary ---
Author Organization [address] Address [address] [place] [address] Phone Care Team Providers Care Setter Machine Name Role Phone Celina Handley PANTOGRAPH WATCHER Primary Care Provider Encounters Date Type Department Care Team Description 10/05/2025 Lab Requisition [facility] Lab [address] [place] [phone] Celina Handley NP Other chcf (current) 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 09/21/2025 Lab Requisition [facility] Lab [address] [place] [address] Celina Handley NP Other chcf (current) 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 08/03/2025 Lab Requisition [facility] Lab [address] [place] [address] Celina Handley NP 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 07/19/2025 Lab Requisition [facility] Lab [address] [place] [phone] Celina Handley NP 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 from Last 3 Months [...] DIFFERENTIAL Routine 10/05/2025 7:11 AM EST 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 CBC AND DIFFERENTIAL Routine 10/05/2025 7:11 AM EST Other chcf (current) 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 CBC WITH AUTO DIFFERENTIAL Routine 09/21/2025 7:19 AM EST 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 CBC AND DIFFERENTIAL Routine 09/21/2025 7:19 AM EST Other chcf (current) 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 CBC WITH AUTO DIFFERENTIAL Routine 08/03/2025 7:32 AM EDT 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 CBC AND DIFFERENTIAL Routine 08/03/2025 7:32 AM EDT Other chcf (current) 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 CBC WITH AUTO DIFFERENTIAL Routine 07/20/2025 7:55 AM EDT Other chcf (current) 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 CBC AND DIFFERENTIAL Routine 07/20/2025 7:55 AM EDT Other chcf (current) 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 from Last 3 Months [...] LAB Eosinophils Absolute 0.23 0.00 - 0.50 K/[facility] LAB HEMETOLOGY METHOD 10/05/2025 11:04 AM EST [facility]) [facility] LAB Basophils Absolute 0.05 0.00 - 0.20 K/[facility] LAB HEMETOLOGY METHOD 10/05/2025 11:04 AM EST [facility] ([facility]) [facility] LAB Immature Granulocytes Absolute 0.07(H) 0.00 - 0.03 K/[facility] LAB HEMETOLOGY METHOD 10/05/2025 11:04 AM EST [facility]) [facility] LAB Blood Venous blood specimen / Unknown Venipuncture / Unknown 10/05/2025 7:11 AM EST 10/05/2025 10:43 AM EST us Celina Handley PANTOGRAPH WATCHER LAB BLOOD ORDERABLES Final R esult [facility] ([facility]) [facility] LAB [address] [place] [address], from Last 3 Months Insurance MEDICAID - [place] [employer] MED[employer] [employer]VANTAGE Care Teams Setter Machine Relationship Specialty Start Date End Date Celina Handley NP [address] [place] [phone] PCP - General 03/10/25
--- OUTSIDE RECORDS SUMMARY | 2025-10-11 17:26 | XMS_ITS | Encounter Summary ---
Author Organization [employer] [facility] Address [address] [place] [address] Care Team Providers Care Manager Cash Name Role Phone Celina Handley NP Primary Care Provider Encounter Details Date Type Department Care Team (Late st Contact Info) Description 06/22/2025 Lab Requisition [facility] - Main Lab [address] 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 CBC AND DIFFERENTIAL Routine 06/23/2025 5:40 AM EDT Other nursing home (current) 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 documented in this encounter Results * (ABNORMAL) CBC auto differential (06/23/2025 5:40 AM EDT) WBC 8.1 4.8 - 10.8 K/[facility] LAB HEMETOLOGY METHOD 06/23/2025 8:16 AM EDT [facility] LAB RBC 3.80 3.80 - 5.50 M/[facility] LAB HEMETOLOGY METHOD 06/23/2025 8:16 AM [facility] LAB Hemoglobin 10.4(L) 12.0 - 18.0 g/dL LAB HEMETOLOGY METHOD 06/23/2025 8:16 AM [facility] LAB Hematocrit 31.7(L) 36.0 - 48.0 % LAB HEMETOLOGY METHOD 06/23/2025 8:16 AM [facility] LAB MCV 82.8 79.0 - 98.0 FL LAB HEMETOLOGY METHOD 06/23/2025 8:16 AM [facility] LAB MCH 27.2 27.0 - 32.0 pcg LAB HEMETOLOGY METHOD 06/23/2025 8:16 AM [facility] LAB MCHC 32.8 32.0 - 37.0 g/dL LAB HEMETOLOGY METHOD 06/23/2025 8:16 AM [facility] LAB RDW 13.1 11.0 - 15.0 % LAB HEMETOLOGY METHOD 06/23/2025 8:16 AM [facility] LAB Platelets 226 130 - 400 K/mcL LAB HEMETOLOGY METHOD 06/23/2025 8:16 AM [facility] LAB MPV 11.8(H) 7.0 - 11.0 FL LAB HEMETOLOGY METHOD 06/23/2025 8:16 AM [facility] LAB NRBC 0.0 <1.0 % LAB HEMETOLOGY METHOD 06/23/2025 8:16 AM [facility] LAB NRBC Absolute 0.00 <0.10 K/mcL LAB HEMETOLOGY METHOD 06/23/2025 8:16 AM [facility] LAB Neutrophils Relative 64.7 % LAB HEMETOLOGY METHOD 06/23/2025 8:16 AM [facility] LAB Lymphocytes Relative 23.8 % LAB HEMETOLOGY METHOD 06/23/2025 8:16 AM [facility] LAB Monocytes Relative 7.8 % LAB HEMETOLOGY METHOD 06/23/2025 8:16 AM EDT [facility] LAB Eosinophils Relative 2.6 % LAB HEMETOLOGY METHOD 06/23/2025 8:16 AM EDT [facility] LAB Basophils Relative 0.5 % LAB HEMETOLOGY METHOD 06/23/2025 8:16 AM EDT [facility] LAB Immature Granulocytes Relative 0.6 % LAB HEMETOLOGY METHOD 06/23/2025 8:16 AM EDT [facility] LAB Neutrophils Absolute 5.23 1.50 - 7.00 K/mcL LAB HEMETOLOGY METHOD 06/23/2025 8:16 AM EDT [facility] LAB Lymphocytes Absolute 1.92 1.00 - 5.00 K/mcL LAB HEMETOLOGY METHOD 06/23/2025 8:16 AM EDT [facility] LAB Monocytes Absolute 0.63 0.20 - 1.00 K/mcL LAB HEMETOLOGY METHOD 06/23/2025 8:16 AM EDT [facility] LAB Eosinophils Absolute 0.21 0.00 - 0.50 K/mcL LAB HEMETOLOGY METHOD 06/23/2025 8:16 AM EDT [facility] LAB Basophils Absolute 0.04 0.00 - 0.20 K/mcL LAB HEMETOLOGY METHOD 06/23/2025 8:16 AM EDT [facility] LAB Immature Granulocytes Absolute 0.05(H) 0.00 - 0.03 K/mcL LAB HEMETOLOGY METHOD 06/23/2025 8:16 AM EDT [facility] LAB Blood Venous blood specimen / Unknown Venipuncture / Unknown 06/23/2025 5:40 AM EDT 06/23/2025 7:57 AM EDT us Celina Handley NP LAB BLOOD ORDERABLES Final R esult [facility] LAB [address] [place] [address], documented in this encounter Visit Diagnoses Diagnosis Other nursing home (current) 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 documented in this encounter Care Teams Manager Cash Relationship Specialty Start Date End Date Celina Handley NP [address] [place] [phone] PCP - General 03/10/25 documented as of this encounter
--- OUTSIDE RECORDS SUMMARY | 2025-10-11 17:26 | XMS_ITS | Encounter Summary ---
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 LAB RBC 4.50 3.80 - 5.50 M/[facility] LAB HEMETOLOGY METHOD 10/05/2025 11:04 AM [facility] LAB Hemoglobin 10.9(L) 12.0 - 18.0 g/dL LAB HEMETOLOGY METHOD 10/05/2025 11:04 AM [facility] LAB Hematocrit 36.0 36.0 - 48.0 % LAB HEMETOLOGY METHOD 10/05/2025 11:04 AM [facility] LAB MCV 80.4 79.0 - 98.0 FL LAB HEMETOLOGY METHOD 10/05/2025 11:04 AM [facility] LAB MCH 24.3(L) 27.0 - 32.0 pcg LAB HEMETOLOGY METHOD 10/05/2025 11:04 AM [facility] LAB MCHC 30.3(L) 32.0 - 37.0 g/dL LAB HEMETOLOGY METHOD 10/05/2025 11:04 AM [facility] LAB RDW 16.2(H) 11.0 - 15.0 % LAB HEMETOLOGY METHOD 10/05/2025 11:04 AM [facility] LAB Platelets 298 130 - 400 K/mcL LAB HEMETOLOGY METHOD 10/05/2025 11:04 AM [facility] LAB MPV 11.6(H) 7.0 - 11.0 FL LAB HEMETOLOGY METHOD 10/05/2025 11:04 AM [facility] LAB NRBC 0.0 <1.0 % LAB HEMETOLOGY METHOD 10/05/2025 11:04 AM [facility] LAB NRBC Absolute 0.00 <0.10 K/mcL LAB HEMETOLOGY METHOD 10/05/2025 11:04 AM [facility] LAB Neutrophils Relative 68.4 % LAB HEMETOLOGY METHOD 10/05/2025 11:04 AM [facility] LAB Lymphocytes Relative 22.3 % LAB HEMETOLOGY METHOD 10/05/2025 11:04 AM [facility] LAB Monocytes Relative 6.4 % LAB HEMETOLOGY METHOD 10/05/2025 11:04 AM [facility] LAB Eosinophils Relative 1.9 % LAB HEMETOLOGY METHOD 10/05/2025 11:04 AM [facility] LAB Basophils Relative 0.4 % LAB HEMETOLOGY METHOD 10/05/2025 11:04 AM [facility] LAB Immature Granulocytes Relative 0.6 % LAB HEMETOLOGY METHOD 10/05/2025 11:04 AM [facility] LAB Neutrophils Absolute 8.07(H) 1.50 - 7.00 K/mcL LAB HEMETOLOGY METHOD 10/05/2025 11:04 AM [facility] LAB Lymphocytes Absolute 2.63 1.00 - 5.00 K/mcL LAB HEMETOLOGY METHOD 10/05/2025 11:04 AM [facility] LAB Monocytes Absolute 0.75 0.20 - 1.00 K/mcL LAB HEMETOLOGY METHOD 10/05/2025 11:04 AM [facility] LAB Eosinophils Absolute 0.23 0.00 - 0.50 K/mcL LAB HEMETOLOGY METHOD 10/05/2025 11:04 AM [facility] LAB Basophils Absolute 0.05 0.00 - 0.20 K/mcL LAB HEMETOLOGY METHOD 10/05/2025 11:04 AM [facility] LAB Immature Granulocytes Absolute 0.07(H) 0.00 - 0.03 K/mcL LAB HEMETOLOGY METHOD 10/05/2025 11:04 AM [facility] LAB Blood Venous blood specimen / Unknown Venipuncture / Unknown 10/05/2025 7:11 AM EST 10/05/2025 10:43 AM EST us Celina Handley NP LAB BLOOD ORDERABLES Final R esult [facility] LAB [address] [place] [address], [place] [phone] documented in this encounter Visit Diagnoses Diagnosis Other care home (current) 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 documented in this encounter Care Teams Lug Breaker And Wire Puller Relationship Specialty Start Date End Date Celina Handley NP [address] [place] [phone] PCP - General 03/10/25 documented as of this encounter
--- OUTSIDE RECORDS SUMMARY | 2025-10-11 17:26 | XMS_ITS | Encounter Summary ---
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 LAB RBC 4.00 3.80 - 5.50 M/[facility] LAB HEMETOLOGY METHOD 07/06/2025 7:57 AM [facility] LAB Hemoglobin 10.3(L) 12.0 - 18.0 g/dL LAB HEMETOLOGY METHOD 07/06/2025 7:57 AM [facility] LAB Hematocrit 32.3(L) 36.0 - 48.0 % LAB HEMETOLOGY METHOD 07/06/2025 7:57 AM [facility] LAB MCV 81.4 79.0 - 98.0 FL LAB HEMETOLOGY METHOD 07/06/2025 7:57 AM [facility] LAB MCH 25.9(L) 27.0 - 32.0 pcg LAB HEMETOLOGY METHOD 07/06/2025 7:57 AM [facility] LAB MCHC 31.9(L) 32.0 - 37.0 g/dL LAB HEMETOLOGY METHOD 07/06/2025 7:57 AM [facility] LAB RDW 13.5 11.0 - 15.0 % LAB HEMETOLOGY METHOD 07/06/2025 7:57 AM [facility] LAB Platelets 239 130 - 400 K/mcL LAB HEMETOLOGY METHOD 07/06/2025 7:57 AM [facility] LAB MPV 12.4(H) 7.0 - 11.0 FL LAB HEMETOLOGY METHOD 07/06/2025 7:57 AM [facility] LAB NRBC 0.0 <1.0 % LAB HEMETOLOGY METHOD 07/06/2025 7:57 AM [facility] LAB NRBC Absolute 0.00 <0.10 K/mcL LAB HEMETOLOGY METHOD 07/06/2025 7:57 AM [facility] LAB Neutrophils Relative 66.9 % LAB HEMETOLOGY METHOD 07/06/2025 7:57 AM [facility] LAB Lymphocytes Relative 23.1 % LAB HEMETOLOGY METHOD 07/06/2025 7:[address] [facility] LAB Monocytes Relative 5.5 % LAB HEMETOLOGY METHOD 07/06/2025 7:57 [facility] Eosinophils Relative 3.2 % LAB HEMETOLOGY METHOD 07/06/2025 7:57 [facility] Basophils Relative 0.5 % LAB HEMETOLOGY METHOD 07/06/2025 7:[address] [facility] LAB Immature Granulocytes Relative 0.8 % LAB HEMETOLOGY METHOD 07/06/2025 7:[address] [facility] LAB Neutrophils Absolute 5.74 1.50 - 7.00 K/mcL LAB HEMETOLOGY METHOD 07/06/2025 7:57 AM [facility] LAB Lymphocytes Absolute 1.98 1.00 - 5.00 K/mcL LAB HEMETOLOGY METHOD 07/06/2025 7:57 [facility] Monocytes Absolute 0.47 0.20 - 1.00 K/mcL LAB HEMETOLOGY METHOD 07/06/2025 7:57 AM [facility] LAB Eosinophils Absolute 0.27 0.00 - 0.50 K/mcL LAB HEMETOLOGY METHOD 07/06/2025 7:57 [facility] Basophils Absolute 0.04 0.00 - 0.20 K/mcL LAB HEMETOLOGY METHOD 07/06/2025 7:57 [facility] Immature Granulocytes Absolute 0.07(H) 0.00 - 0.03 K/mcL LAB HEMETOLOGY METHOD 07/06/2025 7:57 AM [facility] LAB Blood Venous blood specimen / Unknown Venipuncture / Unknown 07/06/2025 6:06 AM EDT 07/06/2025 7:41 AM EDT us Celina Handley NP LAB BLOOD ORDERABLES Final R esult [facility] [address] [place] [address], documented in this encounter Visit Diagnoses Diagnosis 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
--- OUTSIDE RECORDS SUMMARY | 2025-10-11 17:26 | XMS_ITS | Encounter Summary ---
Author Organization [employer] [facility] Address [address] [place] [address] Care Team Providers Care Industrial Production Manager Name Role Phone Celina Handley NP Primary Care Provider [phone] Encounter Details Date Type Department Care Team (Late st Contact Info) Description 08/03/2025 Lab Requisition [facility] - Main Lab [address] [facility] [place] [address] Celina Handley NP [address] [place] [address] Other intermediate (current) 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 Social History Tobacco Use [...] DIFFERENTIAL Routine 08/03/2025 7:32 AM EDT 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0 % LAB HEMETOLOGY METHOD 08/03/2025 11:41 AM [facility] LAB MCV 80.9 79.0 - 98.0 FL LAB HEMETOLOGY METHOD 08/03/2025 11:41 AM [facility] LAB MCH 24.9(L) 27.0 - 32.0 pcg LAB HEMETOLOGY METHOD 08/03/2025 11:41 AM [facility] LAB MCHC 30.8(L) 32.0 - 37.0 g/dL LAB HEMETOLOGY METHOD 08/03/2025 11:41 AM [facility] LAB RDW 14.4 11.0 - 15.0 % LAB HEMETOLOGY METHOD 08/03/2025 11:41 AM [facility] LAB Platelets 264 130 - 400 K/mcL LAB HEMETOLOGY METHOD 08/03/2025 11:41 AM [facility] LAB MPV 11.9(H) 7.0 - 11.0 FL LAB HEMETOLOGY METHOD 08/03/2025 11:41 AM [facility] LAB NRBC 0.0 <1.0 % LAB HEMETOLOGY METHOD 08/03/2025 11:41 AM [facility] LAB NRBC Absolute 0.00 <0.10 K/mcL LAB HEMETOLOGY METHOD 08/03/2025 11:41 AM [facility] LAB Neutrophils Relative 63.8 % LAB HEMETOLOGY METHOD 08/03/2025 11:41 AM [facility] LAB Lymphocytes Relative 24.0 % LAB HEMETOLOGY METHOD 08/03/2025 11:[address] [facility] LAB Monocytes Relative 8.1 % LAB [facility]EMETOLOGY METHOD 08/03[facility]2025 11[facility] Eosinophils Relative 3.1 % LAB HEMETOLOGY METHOD 08/03/2025 11:41 AM [facility] LAB Basophils Relative 0.5 % LAB HEMETOLOGY METHOD 08/03/2025 11:41 AM [facility] Immature Granulocytes Relative 0.5 % LAB HEMETOLOGY METHOD 08/03/2025 11:41 [facility] Neutrophils Absolute 4.97 1.50 - 7.00 K/mcL LAB HEMETOLOGY METHOD 08/03/2025 11:41 AM [facility] LAB Lymphocytes Absolute 1.87 1.00 - 5.00 K/mcL LAB HEMETOLOGY METHOD 08/03/2025 11:41 AM [facility] LAB Monocytes Absolute 0.63 0.20 - 1.00 K/mcL LAB HEMETOLOGY METHOD 08/03/2025 11:41 AM [facility] LAB Eosinophils Absolute 0.24 0.00 - 0.50 K/mcL LAB HEMETOLOGY METHOD 08/03/2025 11:41 AM [facility] LAB Basophils Absolute 0.04 0.00 - 0.20 K/mcL LAB HEMETOLOGY METHOD 08/03/2025 11:41 AM [facility] LAB Immature Granulocytes Absolute 0.04(H) 0.00 - 0.03 K/mcL LAB HEMETOLOGY METHOD 08/03/2025 11:41 AM [facility] LAB Blood Venous blood specimen / Unknown Venipuncture / Unknown 08/03/2025 7:32 AM EDT 08/03/2025 10:38 AM EDT us Celina Handley NP LAB BLOOD ORDERABLES Final R esult [facility] [address] [place] [address], documented in this encounter Visit Diagnoses Diagnosis Other intermediate (current) drug therapy documented in this encounter Care Teams Industrial Production Manager Relationship Specialty Start Date End Date Celina Handley NP [address] [place] [phone] PCP - General 03/10/25 documented as of this encounter
--- OUTSIDE RECORDS SUMMARY | 2025-10-11 17:26 | XMS_ITS | Encounter Summary ---
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 CBC AND DIFFERENTIAL Routine 07/20/2025 7:55 AM EDT Other alf (current) drug therapy documented in this encounter Results * (ABNORMAL) CBC auto differential (07/20/2025 7:55 AM EDT) WBC 6.9 4.8 - 10.8 K/[facility] LAB HEMETOLOGY METHOD 07/20/2025 9:34 AM EDT [facility] RBC 4.40 3.80 - 5.50 M/[facility] LAB HEMETOLOGY METHOD 07/20/2025 9:34 AM [facility] LAB Hemoglobin 11.1(L) 12.0 - 18.0 g/dL LAB HEMETOLOGY METHOD 07/20/2025 9:34 AM [facility] LAB Hematocrit 36.4 36.0 - 48.0 % LAB HEMETOLOGY METHOD 07/20/2025 9:34 AM [facility] LAB MCV 82.2 79.0 - 98.0 FL LAB HEMETOLOGY METHOD 07/20/2025 9:34 AM [facility] LAB MCH 25.1(L) 27.0 - 32.0 pcg LAB HEMETOLOGY METHOD 07/20/2025 9:34 AM [facility] LAB MCHC 30.5(L) 32.0 - 37.0 g/dL LAB HEMETOLOGY METHOD 07/20/2025 9:34 AM [facility] LAB RDW 13.6 11.0 - 15.0 % LAB HEMETOLOGY METHOD 07/20/2025 9:34 AM [facility] LAB Platelets 239 130 - 400 K/mcL LAB HEMETOLOGY METHOD 07/20/2025 9:34 AM [facility] LAB MPV 11.9(H) 7.0 - 11.0 FL LAB HEMETOLOGY METHOD 07/20/2025 9:34 AM [facility] LAB NRBC 0.0 <1.0 % LAB HEMETOLOGY METHOD 07/20/2025 9:34 AM [facility] LAB NRBC Absolute 0.00 <0.10 K/mcL LAB HEMETOLOGY METHOD 07/20/2025 9:34 AM [facility] LAB Neutrophils Relative 65.2 % LAB HEMETOLOGY METHOD 07/20/2025 9:34 AM [facility] LAB Lymphocytes Relative 20.6 % LAB HEMETOLOGY METHOD 07/20/2025 9:34 AM [facility] LAB Monocytes Relative 9.4 % LAB HEMETOLOGY METHOD 07/20/2025 9:34 AM EDT [facility] LAB Eosinophils Relative 3.3 % LAB HEMETOLOGY METHOD 07/20/2025 9:34 AM EDT [facility] LAB Basophils Relative 0.3 % LAB HEMETOLOGY METHOD 07/20/2025 9:34 AM EDT [facility] LAB Immature Granulocytes Relative 1.2 % LAB HEMETOLOGY METHOD 07/20/2025 9:34 AM EDT [facility] LAB Neutrophils Absolute 4.50 1.50 - 7.00 K/mcL LAB HEMETOLOGY METHOD 07/20/2025 9:34 AM EDT [facility] LAB Lymphocytes Absolute 1.42 1.00 - 5.00 K/mcL LAB HEMETOLOGY METHOD 07/20/2025 9:34 AM EDT [facility] LAB Monocytes Absolute 0.65 0.20 - 1.00 K/mcL LAB HEMETOLOGY METHOD 07/20/2025 9:34 AM EDT [facility] LAB Eosinophils Absolute 0.23 0.00 - 0.50 K/mcL LAB HEMETOLOGY METHOD 07/20/2025 9:34 AM EDT [facility] LAB Basophils Absolute 0.02 0.00 - 0.20 K/mcL LAB HEMETOLOGY METHOD 07/20/2025 9:34 AM EDT [facility] LAB Immature Granulocytes Absolute 0.08(H) 0.00 - 0.03 K/mcL LAB HEMETOLOGY METHOD 07/20/2025 9:34 AM EDT [facility] LAB Blood Venous blood specimen / Unknown Venipuncture / Unknown 07/20/2025 7:55 AM EDT 07/20/2025 9:03 AM EDT us Celina Handley NP LAB BLOOD ORDERABLES Final R esult [facility] [address] [place] [address], documented in this encounter Visit Diagnoses Diagnosis Other alf (current) drug therapy documented in this encounter Care Teams Manager Medical Relationship Specialty Start Date End Date Celina Handley NP [address] [place] [phone] PCP - General 03/10/25 documented as of this encounter
== END 2025-10-11 14:49 | disposition home or self-care (01) ==
LOC: HO.HMCH 13:55
DX: Z13.9 Encounter for screening, unspecified (principal)

== ENCOUNTER → 2025-10-11 13:54 | Outpatient (BNVA) | payer MEDICARE, MEDICAID, SELFPAY | DX: E11.9 Type 2 diabetes mellitus without complications (principal) | CPT/HCPCS: 83036 ==